=== PATIENT | female | born 1950 | race Caucasian/White ===

== ENCOUNTER → 2019-07-20 | Outpatient (CLI) | payer MEDICARE ==
[2019-07-20 13:33] LABS: INR 1.8 (<1.2); Prothrombin Time 17.9 sec (9.0-12.0)
== END | disposition home or self-care (01) ==
LOC: LABWHC1 12:25
DX: I48.91 Unspecified atrial fibrillation (principal)
CPT/HCPCS: 36415; 85610

== ENCOUNTER → 2019-08-08 | Outpatient (CLI) | payer MEDICARE ==
[2019-08-08 16:08] LABS: INR 1.1 (<1.2); Prothrombin Time 11.2 sec (9.0-12.0)
== END | disposition home or self-care (01) ==
LOC: LABWHC1 15:32
PROVIDERS: ATTEND Internal Medicine
DX: I48.91 Unspecified atrial fibrillation (principal)
CPT/HCPCS: 36415; 85610

== ENCOUNTER → 2020-04-20 | Outpatient (CLI) | payer MEDICARE ==
[2020-04-20 12:39] LABS: INR 1.2 (<1.2); Prothrombin Time 12.1 sec (9.0-12.0)
== END | disposition home or self-care (01) ==
LOC: LABWHC1 10:35
PROVIDERS: ATTEND Internal Medicine
DX: I48.91 Unspecified atrial fibrillation (principal)
CPT/HCPCS: 36415; 85610

== ENCOUNTER 2021-05-22 10:53 | Inpatient (IN) | payer MEDICARE ==
[2021-05-16 16:39] VITALS: BMI 31.4
--- NOTE | 2021-05-22 08:04 | P.GSHP ---
History of Present Illness H&P Date: 05/22/21 Chief Complaint: Panniculus This is a 70-year-old female who presents today for panniculus. Patient has had chronic issues with skin irritation rashes at her panniculus. Patient understands a cosmetic procedure however procedure to remove redundant skin. She is aware the risk of possible need of cosmetic surgery afterwards. Past Medical History Past Medical History: Cancer, CVA/TIA, Diabetes Mellitus, GERD/Reflux, Hyperlipidemia, Hypertension, Sleep Apnea/CPAP/BIPAP Additional Past Medical History / Comment(s): states 7 strokes, states left foot drop, and wears an AFO, hx of cervical CA, and colon CA 2002, had chemo and radiation, restless leg, neuropathy tr legs, rash under abdominal flap, states has had weight loss, at one time weighed 545lbs History of Any Multi-Drug Resistant Organisms: None Reported Past Surgical History: Bowel Resection, Heart Catheterization With Stent, Hernia Repair, Hysterectomy, Joint Replacement, Pacemaker Additional Past Surgical History / Comment(s): hx of colostomy, and then reversal, tr cataract sx, left hip replaced, states had 5 hernia repairs with mesh Past Anesthesia/Blood Transfusion Reactions: No Reported Reaction Date of Last Stent Placement:: 2013 Type of Cardiac Device: Permanent Pacemaker Device Placement Date:: 12/23/20 Smoking Status: Current every day smoker - Past Family History Brother(s) Family Medical History: Cancer Medications and Allergies Home Medications Medication Instructions Recorded Confirmed Type Atorvastatin [Lipitor] 40 mg PO HS 05/16/21 05/16/21 History Cholecalciferol [Vitamin D3 (25 25 mcg PO DAILY 05/16/21 05/16/21 History Mcg = 1000 Iu)] EPINEPHrine (Auto Inject) [Epipen] 0.3 mg IM ONCE PRN 05/16/21 05/16/21 History Fluticasone Nasal [place] [Flonase 2 spr EA NOSTRIL DAILY 05/16/21 05/16/21 History Nasal Russell] Gabapentin [Neurontin] 100 mg PO BID 05/16/21 05/16/21 History Insulin Glargine [Lantus] 0 unit SQ TID 05/16/21 05/16/21 History Metoprolol Tartrate 25 mg PO BID 05/16/21 05/16/21 History Nystatin 100,000 Unit/gm Oint 1 applic TOPICAL DIRECTED 05/16/21 05/16/21 History [Mycostatin Oint] Omeprazole 20 mg PO DAILY 05/16/21 05/16/21 History Pramipexole [Mirapex] 0.125 mg PO DAILY 05/16/21 05/16/21 History Sertraline [Zoloft] 50 mg PO QAM 05/16/21 05/16/21 History Warfarin [Coumadin] 5 mg PO THFRSA 05/16/21 05/16/21 History Warfarin [Coumadin] 10 mg PO SUMOTUWE 05/16/21 05/16/21 History metFORMIN HCL 1,000 mg PO BID 05/16/21 05/16/21 History Allergies Allergy/AdvReac Type Severity Reaction Status Date / Time bee venom protein (honey bee) Allergy Anaphylaxis Verified 05/16/21 16:28 cephalexin [From Keflex] Allergy Rash/Hives Verified 05/16/21 16:28 latex Allergy Rash/Hives Verified 05/16/21 16:28 Penicillins Allergy Swelling Verified 05/16/21 16:28 Sulfa (Sulfonamide Allergy Unknown Verified 05/16/21 16:28 Antibiotics) Surgical - Exam - General well developed, well nourished, no distress - Eyes PERRL - ENT normal pinna - Neck no masses - Respiratory normal expansion - Cardiovascular Rhythm: regular - Abdomen Well-formed panniculus Abdomen: soft, non tender Assessment and Plan Assessment: Panniculus. We'll perform the panniculectomy
[~2021-05-22 10:53] MED LIST: ACETAMINOPHEN TAB 500 MG TAB PO PRN; CLINDAMYCIN 900 MG in DEXTROSE 5% IN WATER 50 ML IVPB PRN; DEXAMETHASONE SOD PHOSPHATE 4 MG/ML 1 ML VIAL IV ONE; HEPARIN SODIUM,PORCINE/PF 5,000 UNIT/0.5 ML SYRINGE SQ PRN; LACTATED RINGERS 1,000 ML IV SCH; LIDOCAINE 1% (10MG/ML) FOR IV START INTRADERMA PRN; ONDANSETRON 4 MG/2 ML VIAL IVP ONE
[2021-05-22 12:36] LABS: Glucose,Whole Blood 131 mg/dL (75-99)
[2021-05-22 12:44] LABS: Basophils # (A) 0.1 k/uL (0-0.2); Basophils % (A) 1 %; Eosinophils # (A) 0.1 k/uL (0-0.7); Eosinophils % (A) 2 %; HCT 44.1 % (34.0-46.0); HGB 15.3 gm/dL (11.4-16.0); Lymphocytes # (A) 1.8 k/uL (1.0-4.8); Lymphocytes % (A) 25 %; MCH 34.1 pg (25.0-35.0); MCHC 34.7 g/dL (31.0-37.0); MCV 98.4 fL (80.0-100.0); Mean Platelet Volume 7.9; Monocytes # (A) 0.4 k/uL (0-1.0); Monocytes % (A) 5 %; Neutrophils # (A) 4.8 k/uL (1.3-7.7); Neutrophils % (A) 66 %; Platelet Count 249 k/uL (150-450); RBC 4.48 m/uL (3.80-5.40); RDW 13.1 % (11.5-15.5); WBC 7.3 k/uL (3.8-10.6)
[2021-05-22] MEDS ORDERED: MIDAZOLAM 2 MG/2 ML VIAL IVP ONE (13:05)
--- NOTE | 2021-05-22 13:53 | P.ANPRN ---
Procedure Note - Anesthesia - Nerve Block Performed Bilateral Erector Spinae Single Time Out Performed: Yes Date of Procedure: 05/22/21 Procedure Start Time: 13:04 Procedure Stop Time: 13:10 Location of Patient: PreOp (1310) Indication: Acute Post-Operative Pain, Requested by Surgeon Sedation Type: Sedate with meaningful contact maintained Preparation: Sterile Prep Position: Prone Needle Types: Pajunk Needle Gauge: 21 Ultrasound used to visualize needle placement: Yes Ultrasound used to observe medication spread: Yes Blood Aspirated: No Pain Paresthesia on Injection Noted: No Resistance on Injection: Normal Image Stored and Saved: Yes Events: Uneventful and Well Tolerated (ropi .5% 15cc plus xylo 1% with epi 15cc bilaterally at L1)
[2021-05-22] MEDS ORDERED: NEOSTIGMINE 1 MG/ML 10 ML VIAL ONE (14:10)
[2021-05-22] MEDS ORDERED: ROPIVACAINE 5 MG/ML 30 ML VIAL ONE (14:10)
[2021-05-22] MEDS ORDERED: GLYCOPYRROLATE 0.2 MG/ML 2 ML VIAL ONE (14:10)
[2021-05-22] MEDS ORDERED: LIDOCAINE 1% INJ 10MG/ML (20 ML MDV) ONE (14:10)
[2021-05-22] MEDS ORDERED: LIDOCAINE 1%-EPI 1:100,000 20 ML VIAL ONE (14:10)
[2021-05-22] MEDS ORDERED: HYDROmorphone (PF) 1 MG/ML ONE (14:10)
[2021-05-22] MEDS ORDERED: ROCURONIUM 10 MG/ML (5 ML VIAL) IV ONE (14:10)
[2021-05-22] MEDS ORDERED: SUCCINYLCHOLINE CHLORIDE 100 MG/5 ML SYR IV ONE (14:10)
[2021-05-22] MEDS ORDERED: PROPOFOL 10 MG/ML 20 ML VIAL IV ONE (14:10)
[2021-05-22] MEDS ORDERED: fentaNYL (PF) 50 MCG/ML 2 ML AMP ONE (14:10)
[2021-05-22] MEDS ORDERED: LACTATED RINGERS 1,000 ML IV ONE ×4 (14:53→16:15)
[2021-05-22] MEDS ORDERED: HYDROmorphone 0.5 MG/0.5 ML SYRINGE IVP PRN (16:02)
[2021-05-22] MEDS ORDERED: ONDANSETRON 4 MG/2 ML VIAL IVP PRN (16:02)
[2021-05-22] MEDS ORDERED: ACETAMINOPHEN TAB 325 MG TAB PO PRN (16:02)
[2021-05-22] MEDS ORDERED: NALOXONE 0.4 MG/ML 1 ML VIAL IV PRN (16:02)
[2021-05-22] MEDS ORDERED: traMADol 50 MG TAB PO PRN (16:02)
--- NOTE | 2021-05-22 16:02 | P.OP ---
Date of Procedure: 05/22/21 Preoperative Diagnosis: Panniculus Postoperative Diagnosis: Panniculus Incisional hernia Procedure(s) Performed: Panniculectomy Repair of incisional hernia Anesthesia: MILTON Surgeon: Alvin Sierra Estimated Blood Loss (ml): 25 Pathology: none sent Condition: stable Disposition: PACU Description of Procedure: PROCEDURE: The patient was placed on the operating table in supine position and received general anesthetic. The abdomen was prepped and draped in the usual sterile fashion. The lower skin incision was then made after the skin was marked with a marker. The incision ran from the pubic area to the level of the anterosuperior iliac spine. Using blunt and sharp dissection and electrocautery the subcutaneous tissues were then dissected down to the level of the fascia external oblique. Following this the dissection was then made from the inferior pannicular incision cephalad. The xiphoid and costal margins were the limits of the dissection. Several small perforating vessels were ligated and cautery was used to maintain hemostasis. Once the dissection was performed the panniculus was then divided in the midline from the level of the umbilicus towards the pubic area. Downward and lateral traction was then placed on the abdominal wall and the skin was suitably marked for transection of the umbilicus. The skin was then incised and the Bovie was used for dissection of the pannicular flap. Next, 2 10-[place] SANTA drains were placed in the wound and brought out through separate stab incisions at the level of the pubic area. The drains were secured to the skin using 3-0 nylon. After the SANTA drains were secured, Marshall's fascia was closed with interrupted 0 Vicryl sutures and then the skin was closed with running 3-0 Monocryl sutures. Prior to closure of the abdominal wall care was taken to ensure that both the abdominal wall and the abdominal wall flap were hemostatic. At this point the drains were placed to suction. The abdomen was cleaned and then sterile tape was placed over top of the incisions. Abdominal binder was then placed. The patient tolerated the procedure well. The patient was sent to recovery room in stable condition.
[2021-05-22] MEDS ORDERED: HYDROmorphone 0.5 MG/0.5 ML SYRINGE IVP ONE ×3 (16:13→16:36)
[2021-05-22 16:31] LABS: Glucose,Whole Blood 147 mg/dL (75-99)
[2021-05-22 20:34] LABS: Glucose,Whole Blood 152 mg/dL (75-99)
[2021-05-22] MEDS: METOPROLOL TARTRATE 25 MG TAB PO SCH (22:34)
[2021-05-22] MEDS: ATORVASTATIN 40 MG TAB PO SCH (22:34)
[2021-05-22] MEDS: DOCUSATE 100 MG CAP PO SCH (22:35)
[2021-05-22] MEDS: INSULIN ASPART (NovoLOG) 100 UNIT/ML VIAL SQ SCH (22:36)
[2021-05-22] MEDS: HYDROcodone/APAP 5-325MG 1 EACH TAB PO PRN (23:29)
[2021-05-23 07:14] LABS: Glucose,Whole Blood 123 mg/dL (75-99)
[2021-05-23] MEDS: INSULIN ASPART (NovoLOG) 100 UNIT/ML VIAL SQ SCH ×4 (07:36→20:44)
[2021-05-23] MEDS: DOCUSATE 100 MG CAP PO SCH ×2 (07:38→20:44)
[2021-05-23] MEDS: CHOLECALCIFEROL 25 MCG (1000 IU) TABLET PO SCH (07:38)
[2021-05-23] MEDS: METOPROLOL TARTRATE 25 MG TAB PO SCH ×2 (07:38→20:44)
[2021-05-23] MEDS: ENOXAPARIN 40 MG/0.4 ML SYRINGE SQ SCH (07:38)
[2021-05-23] MEDS: PANTOPRAZOLE 40 MG TABLET PO SCH (07:38)
[2021-05-23] MEDS: SERTRALINE 50 MG TAB PO SCH (07:38)
[2021-05-23] MEDS: PRAMIPEXOLE 0.125 MG TAB PO SCH (07:39)
[2021-05-23] MEDS: HYDROcodone/APAP 5-325MG 1 EACH TAB PO PRN ×2 (09:34→17:07)
[2021-05-23 09:36] LABS: Basophils % (A) 0 %; Eosinophils # (A) 0.2 k/uL (0-0.7); Eosinophils % (A) 2 %; HCT 39.5 % (34.0-46.0); HGB 13.2 gm/dL (11.4-16.0); Lymphocytes # (A) 1.7 k/uL (1.0-4.8); Lymphocytes % (A) 15 %; MCH 33.6 pg (25.0-35.0); MCHC 33.4 g/dL (31.0-37.0); MCV 100.8 fL (80.0-100.0); Monocytes # (A) 0.5 k/uL (0-1.0); Monocytes % (A) 4 %; Neutrophils # (A) 8.5 k/uL (1.3-7.7); Neutrophils % (A) 78 %; Platelet Count 220 k/uL (150-450); RBC 3.92 m/uL (3.80-5.40); RDW 13.2 % (11.5-15.5)
[2021-05-23] MEDS: FLUTICASONE 50MCG/SPRAY NASAL 16GM EA NOSTRIL SCH (09:52)
[2021-05-23 09:58] LABS: African American GFR (CKD) >90 (>60 ml/min/1.73 sqM); Anion Gap 5 mmol/L; Blood Urea Nitrogen 22 mg/dL (7-17); Calcium 9.2 mg/dL (8.4-10.2); Carbon Dioxide 29 mmol/L (22-30); Chloride 102 mmol/L (98-107); Glucose 232 mg/dL (74-99); Non-African American GFR(CKD) 89 (>60 ml/min/1.73 sqM); Potassium 4.6 mmol/L (3.5-5.1); Sodium 136 mmol/L (137-145)
[2021-05-23] MEDS: IPRATROPIUM-ALBUTEROL 3 ML NEB INHALATION SCH ×3 (10:58→18:51)
[2021-05-23 11:18] LABS: Glucose,Whole Blood 174 mg/dL (75-99)
--- NOTE | 2021-05-23 14:18 | P.PN ---
Subjective Progress Note Date: 05/23/21 CHIEF COMPLAINT: Panniculus HISTORY OF PRESENT ILLNESS: Patient is status post panniculectomy and repair of several incisional hernias. Patient reports that her pain is controlled. This morning she was on 4 L of nasal cannula oxygen with some shortness of breath with movement from the bed to the chair. She denies any nausea or vomiting. She is tolerating her clear liquid diet. Denies any flatus or BM. She's afebrile. WBC is 11 hemoglobin was 13.2 platelets 220 sodium 136 creatinine 0.70 SANTA drains with 110 mL sanguinous output from each SANTA drain PHYSICAL EXAM: VITAL SIGNS: Reviewed. GENERAL: Well-developed in no acute distress. HEENT: No sclera icterus. Extraocular movements grossly intact. Moist buccal mucosa. Head is atraumatic, normocephalic. ABDOMEN: Soft. Nondistended. Incisional dressing clean dry and intact. SANTA drain with sanguinous output NEUROLOGIC: Alert and oriented. Cranial nerves II through XII grossly intact. ASSESSMENT: 1. Panniculus and incisional hernias. Patient status post panniculectomy and repair of several incisional hernias. Postop day #1 PLAN: -Advance diet to regular -Encourage patient to ambulate -Encourage patient to use incentive spirometer -Continue pain medication as needed -DuoNeb updrafts added for shortness of breath -Discontinue IV fluids -Discontinue Fermin catheter -Anticipate discharge tomorrow Physician Gear Generator Set Up Operator note has been reviewed by physician. Signing provider agrees with the documented findings, assessment, and plan of care. Objective - Vital Signs Vital signs: Vital Signs Temp 98.3 F 05/23/21 08:00 Pulse 50 L 05/23/21 11:10 Resp 18 05/23/21 11:10 BP 116/64 05/23/21 08:00 Pulse Ox 95 05/23/21 11:00 Intake & Output 05/22/21 05/23/21 05/23/21 18:59 06:59 18:59 Intake Total 2381 Output Total 770 Balance 1611 Weight 90.3 kg Intake: IV 2381 Output: Urine 750 Estimated Blood Loss 20 Other: Voiding Method Indwelling Catheter Indwelling Catheter Indwelling Catheter - Labs CBC & Chem 7: 05/23/21 09:20 05/23/21 09:20 Labs: Abnormal Lab Results - Last 24 Hours (Table) 05/22/21 05/22/21 05/23/21 Range/Units 16:29 20:32 07:01 WBC (3.8-10.6) k/uL MCV (80.0-100.0) fL Neutrophils # (1.3-7.7) k/uL Sodium (137-145) mmol/L BUN (7-17) mg/dL Glucose (74-99) mg/dL POC Glucose (mg/dL) 147 H 152 H 123 H (75-99) mg/dL 05/23/21 05/23/21 05/23/21 Range/Units 09:20 09:20 11:17 WBC 11.0 H (3.8-10.6) k/uL MCV 100.8 H (80.0-100.0) fL Neutrophils # 8.5 H (1.3-7.7) k/uL Sodium 136 L (137-145) mmol/L BUN 22 H (7-17) mg/dL Glucose 232 H (74-99) mg/dL POC Glucose (mg/dL) 174 H (75-99) mg/dL
[2021-05-23 16:55] LABS: Glucose,Whole Blood 139 mg/dL (75-99)
[2021-05-23 20:14] LABS: Glucose,Whole Blood 167 mg/dL (75-99)
[2021-05-23] MEDS: ATORVASTATIN 40 MG TAB PO SCH (20:43)
[2021-05-24] MEDS: HYDROcodone/APAP 5-325MG 1 EACH TAB PO PRN ×3 (01:08→13:24)
[2021-05-24 07:04] LABS: Glucose,Whole Blood 113 mg/dL (75-99)
[2021-05-24] MEDS: DOCUSATE 100 MG CAP PO SCH ×2 (07:39→21:30)
[2021-05-24] MEDS: ENOXAPARIN 40 MG/0.4 ML SYRINGE SQ SCH (07:39)
[2021-05-24] MEDS: CHOLECALCIFEROL 25 MCG (1000 IU) TABLET PO SCH (07:39)
[2021-05-24] MEDS: FLUTICASONE 50MCG/SPRAY NASAL 16GM EA NOSTRIL SCH (07:39)
[2021-05-24] MEDS: METOPROLOL TARTRATE 25 MG TAB PO SCH ×2 (07:40→21:29)
[2021-05-24] MEDS: SERTRALINE 50 MG TAB PO SCH (07:40)
[2021-05-24] MEDS: PANTOPRAZOLE 40 MG TABLET PO SCH (07:40)
[2021-05-24] MEDS: PRAMIPEXOLE 0.125 MG TAB PO SCH (07:41)
[2021-05-24] MEDS: INSULIN ASPART (NovoLOG) 100 UNIT/ML VIAL SQ SCH ×4 (07:41→22:11)
[2021-05-24] MEDS: IPRATROPIUM-ALBUTEROL 3 ML NEB INHALATION SCH ×4 (09:04→20:29)
[2021-05-24 09:16] LABS: Basophils # (A) 0.04 X 10*3/uL (0.00-0.10); Basophils % (A) 0.5 %; Eosinophils # (A) 0.11 X 10*3/uL (0.04-0.35); Eosinophils % (A) 1.3 %; HCT 36.8 % (37.2-46.3); HGB 11.8 g/dL (12.0-15.0); Lymphocytes # (A) 2.27 X 10*3/uL (0.90-5.00); Lymphocytes % (A) 26.7 %; MCH 32.7 pg (27.0-32.0); MCHC 32.1 g/dL (32.0-37.0); MCV 101.9 fL (80.0-97.0); Mean Platelet Volume 10.9 fL (9.5-12.2); Monocytes # (A) 0.74 X 10*3/uL (0.20-1.00); Monocytes % (A) 8.7 %; Neutrophils # (A) 5.33 X 10*3/uL (1.80-7.70); Neutrophils % (A) 62.6 %; Platelet Count 198 X 10*3/uL (140-440); RBC 3.61 X 10*6/uL (4.10-5.20); RDW 13.3 % (11.5-14.5); WBC 8.51 X 10*3/uL (4.50-10.00)
--- NOTE | 2021-05-24 10:03 | XR ---
EXAMINATION TYPE: XR chest 1V DATE OF EXAM: 05/24/2021 COMPARISON: NONE HISTORY: Hypoxia TECHNIQUE: Single frontal view of the chest is obtained. FINDINGS: The patient is rotated. There is patchy basilar density noted, some blunting the costophren ic angles. The aorta is dense. There are overlying artifacts. The cardiac silhouette size is within n ormal limits. There is a loop recorder over the left chest. The osseous structures are intact. IMPRESSION: Basilar atelectasis and possible associated effusions. Pneumonia not excluded. Follow-up suggested.
[2021-05-24] MEDS ORDERED: FUROSEMIDE 10 MG/ML 4 ML VIAL IV STA (11:26)
[2021-05-24 11:34] LABS: Glucose,Whole Blood 165 mg/dL (75-99)
--- NOTE | 2021-05-24 12:49 | P.CONS ---
History of Present Illness - Reason for Consult Consult date: 05/24/21 Requesting physician: Alvin Sierra - Chief Complaint Medical management, status post abdominoplasty - History of Present Illness This 70-year-old pleasant female, with known history of cold colon cancer 2002, requiring the chemoradiation, also with history of significant weight loss, at one time she weighed 545 pounds, also has diabetes mellitus, hyperlipidemia, hyp ertension, obstructive sleep apnea, she also has atrial fibrillation, paroxysmal requiring Coumadin, and has 7 prior CVAs in the past. She also has aortic stenosis, followed by product line manager in [facility] and has a loop recorder. She now comes in for an elective abdominoplasty secondary to pannus and panniculitis, for which Dr. Sierra has performed the procedure 05/23/2021. She was seen postoperatively in a consult made to our service on 05/24/2021 for medical management. Interestingly, she had called bleed in January of this year, When seen, patient was a little bit hypoxemic, she has an abdominal binder, pulse ox in the 90% with 4 L L, patient does not have any chest pain, but she has a hard time breathing, related to the abdominal binder, patient denies any edema, no CHF the past, does not have any history of PE DVT, she is however Coumadin for cardiac reasons, consult also were made with Dr. Kyle hewitt, she is performing her incentive spirometry, with an capacity of 1500 L only. Hemoglobin is 11.8, blood sugars between 113-167, platelet count is normal, chest x-ray shows bilateral atelectasis, with possible pleural effusion, blunting of costophrenic angles. There is no fever currently, T-max 98.4, heart rate in the 70s, blood pressure 147/82, pulse oximetry currently are not 2 L cannula, 92 percent Review of Systems Constitutional: Reports as per HPI, Denies anorexia, Denies chills, Denies chronic headaches, Denies chronic pain, Denies daytime sleepiness, Denies fatigue, Denies fever, Denies lethargy, Denies malaise, Denies night sweats, Denies poor appetite, Denies sweats, Denies weakness, Denies weight gain, Denies weight loss Ears, nose, mouth and throat: Reports as per HPI, Denies ant. neck pain, Denies bleeding gums, Denies dental pain, Denies dysphagia, Denies epistaxis, Denies headache, Denies hoarseness, Denies mouth pain, Denies nasal congestion, Denies nasal discharge, Denies neck fullness/pressure, Denies neck lump, Denies nose pain, Denies odynophagia, Denies post-nasal drip, Denies sinus pain, Denies sinus pressure, Denies swelling in mouth, Denies swelling in throat, Denies sore throat, Denies vertigo, Denies voice changes Cardiovascular: Reports as per HPI, Reports shortness of breath Respiratory: Reports as per HPI, Denies congestion, Denies cough, Denies cough with sputum, Denies dyspnea, Denies excessive sputum, Denies hemoptysis, Denies home oxygen, Denies pain, Denies pain on inspiration, Denies pleurisy, Denies respiratory infections, Denies sleep apnea, Denies snoring, Denies wheezing Gastrointestinal: Reports as per HPI Genitourinary: Reports as per HPI, Denies abnormal vaginal bleeding, Denies decreased libido, Denies difficulty conceiving, Denies difficulty voiding, Denies dysmenorrhea, Denies dyspareunia, Denies dysuria, Denies flank pain, Denies genital sores, Denies hematuria, Denies hot flashes, Denies incomplete emptying, Denies kidney stones, Denies menorrhagia, Denies mixed incontinence, Denies nocturia, Denies pelvic pain, Denies post void dribbling, Denies , Denies prolapse symptoms, Denies stress incontinence, Denies urge incontinence, Denies urgency, Denies urinary frequency, Denies vaginal discharge, Denies vaginal dryness, Denies vaginal itching, Denies vaginal odor Menstruation: Reports as per HPI, Reports postmenopausal Musculoskeletal: Reports as per HPI, Denies arm numbness/tingling, Denies frequent falls, Denies gait dysfunction, Denies limitation of motion, Denies loss of height Integumentary: Reports as per HPI Neurological: Reports as per HPI Psychiatric: Reports as per HPI, Denies hypersomnia, Denies insomnia, Denies irritability, Denies sleep disturbances, Denies suicidal ideation Endocrine: Reports as per HPI, Reports fatigue, Denies heat intolerance, Denies low blood sugars, Denies palpitations Hematologic/Lymphatic: Reports as per HPI Allergic/Immunologic: Reports as per HPI, Denies allergic rhinitis, Denies anaphylaxis, Denies angioedema, Denies gluten intolerance, Denies persistent infections, Denies seasonal allergies, Denies urticaria, Denies wheezing Past Medical History Past Medical History: Cancer, CVA/TIA, Diabetes Mellitus, GERD/Reflux, Hyperlipidemia, Hypertension, Sleep Apnea/CPAP/BIPAP Additional Past Medical History / Comment(s): states 7 strokes, states left foot drop, and wears an AFO, hx of cervical CA, and colon CA 2002, had chemo and radiation, restless leg, neuropathy tr legs, rash under abdominal flap, states has had weight loss, at one time weighed 545lbs History of Any Multi-Drug Resistant Organisms: None Reported Past Surgical History: Bowel Resection, Heart Catheterization With Stent, Hernia Repair, Hysterectomy, Joint Replacement, Pacemaker Additional Past Surgical History / Comment(s): hx of colostomy, and then reversal, tr cataract sx, left hip replaced, states had 5 hernia repairs with mesh Past Anesthesia/Blood Transfusion Reactions: No Reported Reaction Date of Last Stent Placement:: 2013 Type of Cardiac Device: Permanent Pacemaker Device Placement Date:: 12/23/20 Past Psychological History: Depression Smoking Status: Former smoker Past Alcohol Use History: None Reported Additional Past Alcohol Use History / Comment(s): smokes 1ppd, has smoked up to 3ppd in past Past Drug Use History: Marijuana Additional Drug Use History / Comment(s): occasional use, instructed to hold 24 hrs - Past Family History Brother(s) Family Medical History: Cancer Sister(s) History Unknown: Yes (Crohn's) Daughter(s) History Unknown: Yes (Cholesteatoma) Son(s) Family Medical History: No Reported History Father Family Medical History: Cancer (Skin cancer), Coronary Artery Disease (CAD), Diabetes Mellitus Mother Family Medical History: Coronary Artery Disease (CAD), CVA/TIA, Diabetes Mellitus Medications and Allergies Home Medications Medication Instructions Recorded Confirmed Type Atorvastatin [Lipitor] 40 mg PO HS 05/16/21 05/16/21 History Cholecalciferol [Vitamin D3 (25 25 mcg PO DAILY 05/16/21 05/16/21 History Mcg = 1000 Iu)] EPINEPHrine (Auto Inject) [Epipen] 0.3 mg IM ONCE PRN 05/16/21 05/16/21 History Fluticasone Nasal [place] [Flonase 2 spr EA NOSTRIL DAILY 05/16/21 05/16/21 History Nasal [place]] Gabapentin [Neurontin] 100 mg PO BID 05/16/21 05/16/21 History Insulin Glargine [Lantus] 35 unit SQ TID 05/16/21 05/22/21 History Metoprolol Tartrate 25 mg PO BID 05/16/21 05/16/21 History Nystatin 100,000 Unit/gm Oint 1 applic TOPICAL DIRECTED 05/16/21 05/16/21 History [Mycostatin Oint] Omeprazole 20 mg PO DAILY 05/16/21 05/16/21 History Pramipexole [Mirapex] 0.125 mg PO DAILY 05/16/21 05/16/21 History Sertraline [Zoloft] 50 mg PO QAM 05/16/21 05/16/21 History Warfarin [Coumadin] 5 mg PO THFRSA 05/16/21 05/16/21 History Warfarin [Coumadin] 10 mg PO SUMOTUWE 05/16/21 05/16/21 History metFORMIN HCL 1,000 mg PO BID 05/16/21 05/16/21 History Allergies Allergy/AdvReac Type Severity Reaction Status Date / Time bee venom protein (honey bee) Allergy Anaphylaxis Verified 05/22/21 12:02 cephalexin [From Keflex] Allergy Rash/Hives Verified 05/22/21 12:02 latex Allergy Rash/Hives Verified 05/22/21 12:02 Penicillins Allergy Swelling Verified 05/22/21 12:02 Sulfa (Sulfonamide Allergy Unknown Verified 05/22/21 12:02 Antibiotics) Physical Exam Vitals: Vital Signs Temp Pulse Pulse Pulse Resp BP Pulse Ox 05/24/21 09:04 63 05/24/21 07:30 98.4 F 71 19 147/82 90 L 05/24/21 01:22 98.3 F 65 18 145/69 93 L 05/23/21 20:00 98.4 F 62 16 129/49 93 L 05/23/21 19:07 60 05/23/21 18:53 64 05/23/21 15:18 61 05/23/21 15:10 68 05/23/21 14:00 98.6 F 68 18 130/61 92 L Intake and Output 07/08/21 07/09/21 07/09/21 22:59 06:59 14:59 Output Total 660 140 Balance -660 -140 Output: Drainage 60 140 Lower Anterior Abdomen 60 140 Urine 600 Other: Voiding Method Toilet # Voids 1 - Constitutional General appearance: cooperative, no acute distress, obese - EENT Eyes: anicteric sclerae, EOMI, PERRLA, dentition normal ENT: NA/AT - Neck Neck: normal ROM - Respiratory Respiratory: bilateral: CTA, negative: diminished, dullness, rales, rhonchi - Cardiovascular Rhythm: regular Heart sounds: normal: S1, S2 Abnormal Heart Sounds: no systolic murmur, no diastolic murmur, no rub, no S3 Gallop, no S4 Gallop, no click, no other - Gastrointestinal General gastrointestinal: normal bowel sounds, soft - Integumentary Integumentary: decreased turgor, normal turgor - Musculoskeletal Musculoskeletal: gait normal, strength equal bilaterally - Psychiatric Psychiatric: A&O x's 3, appropriate affect, intact judgment & insight Results CBC & Chem 7: 05/24/21 06:25 05/23/21 09:20 Labs: Abnormal Lab Results - Last 24 Hours (Table) 05/23/21 05/23/21 05/24/21 Range/Units 16:52 20:11 06:25 RBC 3.61 L (4.10-5.20) X 10*6/uL Hgb 11.8 L (12.0-15.0) g/dL Hct 36.8 L (37.2-46.3) % MCV 101.9 H (80.0-97.0) fL MCH 32.7 H (27.0-32.0) pg POC Glucose (mg/dL) 139 H 167 H (75-99) mg/dL 05/24/21 05/24/21 05/24/21 Range/Units 07:03 11:29 11:29 RBC (4.10-5.20) X 10*6/uL Hgb (12.0-15.0) g/dL Hct (37.2-46.3) % MCV (80.0-97.0) fL MCH (27.0-32.0) pg POC Glucose (mg/dL) 113 H 165 H 165 H (75-99) mg/dL 05/24/21 05/24/21 05/24/21 Range/Units 11:29 11:29 11:29 RBC (4.10-5.20) X 10*6/uL Hgb (12.0-15.0) g/dL Hct (37.2-46.3) % MCV (80.0-97.0) fL MCH (27.0-32.0) pg POC Glucose (mg/dL) 165 H 165 H 165 H (75-99) mg/dL 05/24/21 05/24/21 05/24/21 Range/Units 11:29 11:29 11:29 RBC (4.10-5.20) X 10*6/uL Hgb (12.0-15.0) g/dL Hct (37.2-46.3) % MCV (80.0-97.0) fL MCH (27.0-32.0) pg POC Glucose (mg/dL) 165 H 165 H 165 H (75-99) mg/dL Laboratory Results WBC 8.51 X 10*3/uL (4.50-10.00) 05/24/21 06:25 RBC 3.61 X 10*6/uL (4.10-5.20) L 05/24/21 06:25 Hgb 11.8 g/dL (12.0-15.0) L 05/24/21 06:25 Hct 36.8 % (37.2-46.3) L 05/24/21 06:25 MCV 101.9 fL (80.0-97.0) H 05/24/21 06:25 MCH 32.7 pg (27.0-32.0) H 05/24/21 06:25 MCHC 32.1 g/dL (32.0-37.0) 05/24/21 06:25 RDW 13.3 % (11.5-14.5) 05/24/21 06:25 Plt Count 198 X 10*3/uL (140-440) 05/24/21 06:25 MPV 10.9 fL (9.5-12.2) 05/24/21 06:25 Immature Gran % (Auto) 0.2 % 05/24/21 06:25 Absolute Nucleated RBC 0 X 10*3/uL (0.00-0.00) 05/24/21 06:25 Neutrophils % 62.6 % 05/24/21 06:25 Lymphocytes % 26.7 % 05/24/21 06:25 Monocytes % 8.7 % 05/24/21 06:25 Eosinophils % 1.3 % 05/24/21 06:25 Basophils % 0.5 % 05/24/21 06:25 Immature Gran # 0.02 X 10*3/uL (0.00-0.04) 05/24/21 06:25 Neutrophils # 5.33 X 10*3/uL (1.80-7.70) 05/24/21 06:25 Lymphocytes # 2.27 X 10*3/uL (0.90-5.00) 05/24/21 06:25 Monocytes # 0.74 X 10*3/uL (0.20-1.00) 05/24/21 06:25 Eosinophils # 0.11 X 10*3/uL (0.04-0.35) 05/24/21 06:25 Basophils # 0.04 X 10*3/uL (0.00-0.10) 05/24/21 06:25 NRBC/100 WBC Diff 0 /100 WBCS (0.0-0.0) 05/24/21 06:25 Sodium 136 mmol/L (137-145) L 05/23/21 09:20 Potassium 4.6 mmol/L (3.5-5.1) 05/23/21 09:20 Chloride 102 mmol/L (98-107) 05/23/21 09:20 Carbon Dioxide 29 mmol/L (22-30) 05/23/21 09:20 Anion Gap 5 mmol/L 05/23/21 09:20 BUN 22 mg/dL (7-17) H 05/23/21 09:20 Creatinine 0.70 mg/dL (0.52-1.04) 05/23/21 09:20 Est GFR (CKD-EPI)AfAm >90 (>60 ml/min/1.73 sqM) 05/23/21 09:20 Est GFR (CKD-EPI)NonAf 89 (>60 ml/min/1.73 sqM) 05/23/21 09:20 Glucose 232 mg/dL (74-99) H 05/23/21 09:20 POC Glucose (mg/dL) 165 mg/dL (75-99) H 05/24/21 11:29 POC Glucose (mg/dL) 165 mg/dL (75-99) H 05/24/21 11:29 POC Glucose (mg/dL) 165 mg/dL (75-99) H 05/24/21 11:29 POC Glucose (mg/dL) 165 mg/dL (75-99) H 05/24/21 11:29 POC Glucose (mg/dL) 165 mg/dL (75-99) H 05/24/21 11:29 POC Glucose (mg/dL) 165 mg/dL (75-99) H 05/24/21 11:29 POC Glucose (mg/dL) 165 mg/dL (75-99) H 05/24/21 11:29 POC Glucose (mg/dL) 165 mg/dL (75-99) H 05/24/21 11:29 POC Glu Ice Cream Dispenser ID [place], [facility] 05/24/21 11:29 POC Glu Ice Cream Dispenser ID [place], [facility] 05/24/21 11:29 POC Glu Ice Cream Dispenser ID [place], [facility] 05/24/21 11:29 POC Glu Ice Cream Dispenser ID [place], [facility] 05/24/21 11:29 POC Glu Ice Cream Dispenser ID [place], [facility] 05/24/21 11:29 POC Glu Ice Cream Dispenser ID [place], [facility] 05/24/21 11:29 POC Glu Ice Cream Dispenser ID [place], [facility] 05/24/21 11:29 POC Glu Ice Cream Dispenser ID [place], [facility] 05/24/21 11:29 Calcium 9.2 mg/dL (8.4-10.2) 05/23/21 09:20 NT-Pro-B Natriuret Pep 730 pg/mL 05/24/21 11:07 Assessment and Plan Plan: 1. History of super obesity, now has underlying panniculitis, requiring elective panniculectomy, performed by Dr. Sierra 05/22/2006/04/2021, patient is doing incentive spirometry, with abdominal binder, patient is having difficulties in maximizing her incentive spirometry, she does have bilateral atelectasis, patient's encouraged to pursue further treatment for the atelectasis.. And PEEP proBNP 7:30, 2. Atelectasis, with acute hypoxemic respiratory failure, related to abdominal binder use, and atelectasis, monitor, continue on incentive spirometry, O2 supplementation, monitor chest x-ray, Dr. Wright to see the patient. Patient denies any history of PE or DVT in the past DuoNeb 3. Mild pleural effusion, Lasix given, 401 dose 2. History of long-term anticoagulation, secondary to atrial fibrillation, has 7 CVAs related to atrial fibrillation, no history of PE, 3. Diabetes mellitus type 2, on metformin and restart 4. CAD, with heart stents in the past, 5. History of colon cancer with history of colostomy with reversal 6. History of a loop recorder, pacemaker, most of the records were at [facility] 7 GI prophylaxis Lovenox 40 8. DVT prophylaxis, IV Protonix Long-term anticoagulation, we'll restart Coumadin once cleared by general surgery, to start within the next 24 hours
--- NOTE | 2021-05-24 13:00 | ECHOF ---
Referral Reason:shortness of breath MEASUREMENTS -------- HEIGHT: 170.2 cm WEIGHT: 90.3 kg BP: IVSd: 1.5 cm (0.6 - 1.1) LVIDd: 3.4 cm (3.9 - 5.3) LVPWd: 1.4 cm (0.6 - 1.1) IVSs: 2.1 cm LVIDs: 1.8 cm LVPWs: 2.5 cm Ao Diam: 2.9 cm (2.0 - 3.7) AV Cusp: 1.3 cm (1.5 - 2.6) LA Diam: 3.1 cm (2.7 - 3.8) MV EXCURSION: 11.540 mm (> 18.000) MV EF SLOPE: 45 mm/s (70 - 150) EPSS: 0.5 cm MV E Logan: 1.13 m/s MV DecT: 386 ms MV A Logan: 1.14 m/s MV E/A Ratio: 0.99 AV maxP.84 mmHg AV meanP.97 mmHg RAP: 5.00 mmHg RVSP: 37.13 mmHg FINDINGS -------- This was a technically difficult study with suboptimal views. The left ventricular size is normal. There is moderate concentric left ventricular hypertrophy. O verall left ventricular systolic function is normal with, an EF between 55 - 60 %. The right ventricle is normal in size. The left atrial size is normal. The right atrial size is normal. Lumason used Unable to visualize the septum. Aortic valve is trileaflet and is severely thickened. There is severe aortic stenosis present. Pe ak/mean gradient across the Aortic Valve is 61.84mmHg / 40.97mmHg. The mitral valve is normal. The mitral valve leaflets are moderately thickened. Mild mitral annul ar calcification present. Mild mitral regurgitation is present. The peak and mean MV gradients a re 7.83mmHg 2.25mmHg as measured by doppler. [id number] mitral stenosis. The tricuspid valve appears structurally normal. Mild tricuspid regurgitation present. Right vent ricular systolic pressure is normal at < 35 mmHg. There is no pulmonic regurgitation present. The aortic root size is normal. IVC Not well visulized. There is no pericardial effusion. CONCLUSIONS -------- 1. The left ventricular size is normal. 2. There is moderate concentric left ventricular hypertrophy. 3. Overall left ventricular systolic function is normal with, an EF between 55 - 60 %. 4. Aortic valve is trileaflet and is severely thickened. 5. There is severe aortic stenosis present. 6. Peak/mean gradient across the Aortic Valve is 61.84mmHg / 40.97mmHg. 7. The mitral valve leaflets are moderately thickened. 8. Mild mitral annular calcification present. 9. Mild mitral regurgitation is present. 10. The peak and mean MV gradients are 7.83mmHg 2.25mmHg as measured by doppler. 11. Ofks-je-gqlqxbwk mitral stenosis. 12. Mild tricuspid regurgitation present. 13. There is no pericardial effusion. GROUND OPERATIONS SUPERVISOR: Yina Desir RDCS
--- NOTE | 2021-05-24 13:50 | P.PN ---
Subjective Progress Note Date: 05/24/21 CHIEF COMPLAINT: Panniculus HISTORY OF PRESENT ILLNESS: Patient is status post panniculectomy and repair of several incisional hernias. Patient reports that her pain is controlled. She denies any nausea or vomiting. She is having flatus. She is tolerating regular diet. Patient is complaining still of having shortness of breath. She has required 4 L of oxygen. She reports having difficulty taking in a deep breath. Abdominal binder has been adjusted. Patient's oxygen saturation on room air is still around 8889%. She has a known history of COPD and history of smoking. She quit smoking about 2 weeks ago. Patient's SANTA drain sanguinous. First drain with 100 mL output second drain with 40 mL output. Afebrile. WBC is 8.5 hemoglobin 11.8 Chest x-ray showing basilar atelectasis and possible associated effusions. Pneumonia not excluded. Medical service to give a dose of IV Lasix for mild pleural effusion PHYSICAL EXAM: VITAL SIGNS: Reviewed. GENERAL: Well-developed in no acute distress. HEENT: No sclera icterus. Extraocular movements grossly intact. Moist buccal mucosa. Head is atraumatic, normocephalic. ABDOMEN: Soft. Nondistended. Incisional dressing clean dry and intact. SANTA drain with sanguinous output NEUROLOGIC: Alert and oriented. Cranial nerves II through XII grossly intact. ASSESSMENT: 1. Panniculus and incisional hernias. Patient status post panniculectomy and repair of several incisional hernias. Postop day #2 PLAN: -Consult pulmonary service regarding patient's hypoxia -Encourage patient to ambulate -Encourage patient to use incentive spirometer -Continue pain medication as needed -Continue [facility] -Patient is stable from surgical standpoint for discharge when medically cleared Physician E Business Manager note has been reviewed by physician. Signing provider agrees with the documented findings, assessment, and plan of care. Objective - Vital Signs Vital signs: Vital Signs Temp 98.4 F 05/24/21 07:30 Pulse 63 05/24/21 09:04 Resp 19 05/24/21 07:30 BP 147/82 05/24/21 07:30 Pulse Ox 90 L 05/24/21 07:30 Intake & Output 05/23/21 05/24/21 05/24/21 18:59 06:59 18:59 Output Total 660 140 Balance -660 -140 Output: Drainage 60 140 Lower Anterior Abdomen 60 140 Urine 600 Other: Voiding Method Indwelling Catheter Toilet # Voids 1 - Labs CBC & Chem 7: 05/24/21 06:25 05/23/21 09:20 Labs: Abnormal Lab Results - Last 24 Hours (Table) 05/23/21 05/23/21 05/24/21 Range/Units 16:52 20:11 06:25 RBC 3.61 L (4.10-5.20) X 10*6/uL Hgb 11.8 L (12.0-15.0) g/dL Hct 36.8 L (37.2-46.3) % MCV 101.9 H (80.0-97.0) fL MCH 32.7 H (27.0-32.0) pg POC Glucose (mg/dL) 139 H 167 H (75-99) mg/dL 05/24/21 05/24/21 05/24/21 Range/Units 07:03 11:29 11:29 RBC (4.10-5.20) X 10*6/uL Hgb (12.0-15.0) g/dL Hct (37.2-46.3) % MCV (80.0-97.0) fL MCH (27.0-32.0) pg POC Glucose (mg/dL) 113 H 165 H 165 H (75-99) mg/dL 05/24/21 05/24/21 05/24/21 Range/Units 11:29 11:29 11:29 RBC (4.10-5.20) X 10*6/uL Hgb (12.0-15.0) g/dL Hct (37.2-46.3) % MCV (80.0-97.0) fL MCH (27.0-32.0) pg POC Glucose (mg/dL) 165 H 165 H 165 H (75-99) mg/dL 05/24/21 05/24/21 05/24/21 Range/Units 11:29 11:29 11:29 RBC (4.10-5.20) X 10*6/uL Hgb (12.0-15.0) g/dL Hct (37.2-46.3) % MCV (80.0-97.0) fL MCH (27.0-32.0) pg POC Glucose (mg/dL) 165 H 165 H 165 H (75-99) mg/dL
--- NOTE | 2021-05-24 15:24 | P.CNPUL ---
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 Patient also has a history of cervical and colon cancer status post chemo and radiation currently in remission. Patient had a loop recorder placed in December 2020 following her most recent CVA. She usually follows with Dr. Blackmon from the [facility]. Patient denies any chronic lung issues. See a diversity specialist, usually not oxygen dependent. Patient came in on 05/22/2021 for elective panniculus, patient has been having skin irritation rashes at her panniculus. Following the procedure on the second postoperative day she started experiencing increased shortness of breath and required placement on supplemental oxygen. She was placed on 4 L of oxygen pulse ox is 90%. Chest x- ray was completed, showing basilar atelectasis and possible associated effusions. Today's blood work shows normal white count of 8.5, hemoglobin is 11.8, yesterday's BMP shows sodium 136, potassium is 4.6, chloride is 102, CO2 is 29, BUN 22, creatinine 0.7. ProBNP came back at 730. Lung sounds reveal diminished breath sounds with some mild fine crackles at the left base. Patient is having incisional pain, and she states that could be limiting her deep breathing in addition to having abdominal binder. No wheezing, only occasional cough, and at times she is bringing up some rahman colored secretions. Review of Systems All systems: negative Constitutional: Denies chills, Denies fever Eyes: denies blurred vision, denies pain Ears, nose, mouth and throat: Denies headache, Denies sore throat Cardiovascular: Denies chest pain, Denies shortness of breath Respiratory: Reports pain on inspiration, Denies cough Gastrointestinal: Denies abdominal pain, Denies diarrhea, Denies nausea, Denies vomiting Genitourinary: Denies dysuria, Denies hematuria Musculoskeletal: Denies myalgias Integumentary: Denies pruritus, Denies rash Neurological: Denies numbness, Denies weakness Psychiatric: Denies anxiety, Denies depression Endocrine: Denies fatigue, Denies weight change Past Medical History Past Medical History: Cancer, CVA/TIA, Diabetes Mellitus, GERD/Reflux, Hyperlipidemia, Hypertension, Sleep Apnea/CPAP/BIPAP Additional Past Medical History / Comment(s): states 7 strokes, states left foot drop, and wears an AFO, hx of cervical CA, and colon CA 2002, had chemo and radiation, restless leg, neuropathy tr legs, rash under abdominal flap, states has had weight loss, at one time weighed 545lbs History of Any Multi-Drug Resistant Organisms: None Reported Past Surgical History: Bowel Resection, Heart Catheterization With Stent, Hernia Repair, Hysterectomy, Joint Replacement, Pacemaker Additional Past Surgical History / Comment(s): hx of colostomy, and then reversal, tr cataract sx, left hip replaced, states had 5 hernia repairs with mesh Past Anesthesia/Blood Transfusion Reactions: No Reported Reaction Date of Last Stent Placement:: 2013 Type of Cardiac Device: Permanent Pacemaker Device Placement Date:: 12/23/20 Past Psychological History: Depression Smoking Status: Former smoker Past Alcohol Use History: None Reported Additional Past Alcohol Use History / Comment(s): smokes 1ppd, has smoked up to 3ppd in past Past Drug Use History: Marijuana Additional Drug Use History / Comment(s): occasional use, instructed to hold 24 hrs - Past Family History Brother(s) Family Medical History: Cancer Sister(s) History Unknown: Yes (Crohn's) Daughter(s) History Unknown: Yes (Cholesteatoma) Son(s) Family Medical History: No Reported History Father Family Medical History: Cancer (Skin cancer), Coronary Artery Disease (CAD), Diabetes Mellitus Mother Family Medical History: Coronary Artery Disease (CAD), CVA/TIA, Diabetes Mellitus Medications and Allergies Home Medications Medication Instructions Recorded Confirmed Type Atorvastatin [Lipitor] 40 mg PO HS 05/16/21 05/16/21 History Cholecalciferol [Vitamin D3 (25 25 mcg PO DAILY 05/16/21 05/16/21 History Mcg = 1000 Iu)] EPINEPHrine (Auto Inject) [Epipen] 0.3 mg IM ONCE PRN 05/16/21 05/16/21 History Fluticasone Nasal Wake [Flonase 2 spr EA NOSTRIL DAILY 05/16/21 05/16/21 History Nasal Wake] Gabapentin [Neurontin] 100 mg PO BID 05/16/21 05/16/21 History Insulin Glargine [Lantus] 35 unit SQ TID 05/16/21 05/22/21 History Metoprolol Tartrate 25 mg PO BID 05/16/21 05/16/21 History Nystatin 100,000 Unit/gm Oint 1 applic TOPICAL DIRECTED 05/16/21 05/16/21 History [Mycostatin Oint] Omeprazole 20 mg PO DAILY 05/16/21 05/16/21 History Pramipexole [Mirapex] 0.125 mg PO DAILY 05/16/21 05/16/21 History Sertraline [Zoloft] 50 mg PO QAM 05/16/21 05/16/21 History Warfarin [Coumadin] 5 mg PO THFRSA 05/16/21 05/16/21 History Warfarin [Coumadin] 10 mg PO SUMOTUWE 05/16/21 05/16/21 History metFORMIN HCL 1,000 mg PO BID 05/16/21 05/16/21 History Docusate [Colace] 100 mg PO BID #30 capsule 05/24/21 Rx HYDROcodone/APAP 7.5-325MG [[place] 1 tab PO Q6HR PRN 3 Days #12 tab 05/24/21 Rx 7.5-325] Allergies Allergy/AdvReac Type Severity Reaction Status Date / Time bee venom protein (honey bee) Allergy Anaphylaxis Verified 05/22/21 12:02 cephalexin [From Keflex] Allergy Rash/Hives Verified 05/22/21 12:02 latex Allergy Rash/Hives Verified 05/22/21 12:02 Penicillins Allergy Swelling Verified 05/22/21 12:02 Sulfa (Sulfonamide Allergy Unknown Verified 05/22/21 12:02 Antibiotics) Physical Exam Vitals: Vital Signs Temp Pulse Pulse Pulse Resp BP Pulse Ox 05/24/21 09:04 63 05/24/21 07:30 98.4 F 71 19 147/82 90 L 05/24/21 01:22 98.3 F 65 18 145/69 93 L 05/23/21 20:00 98.4 F 62 16 129/49 93 L 05/23/21 19:07 60 05/23/21 18:53 64 05/23/21 15:18 61 05/23/21 15:10 68 05/23/21 14:00 98.6 F 68 18 130/61 92 L Intake and Output 05/23/21 05/24/21 05/24/21 22:59 06:59 14:59 Output Total 660 140 Balance -660 -140 Output: Drainage 60 140 Lower Anterior Abdomen 60 140 Urine 600 Other: Voiding Method Toilet # Voids 1 GENERAL EXAM: Alert, very pleasant, 70-year-old white female, on 2 L of oxygen currently, with pulse ox of 94%, in the recliner, comfortable in no apparent distress. HEAD: Normocephalic/atraumatic. EYES: Normal reaction of pupils, equal size. Conjunctiva pink, sclera white. NOSE: Clear with pink turbinates. THROAT: No erythema or exudates. NECK: No masses, no JVD, no thyroid enlargement, no adenopathy. CHEST: No chest wall deformity. Symmetrical expansion. LUNGS: Equal air entry with minimal fine rales at the left base CVS: Regular rate and rhythm, normal S1 and S2, no gallops, no murmurs, no rubs ABDOMEN: Soft, nontender. No hepatosplenomegaly, normal bowel sounds, no guarding or rigidity. Mid abdominal incision with the denny that are intact, covered with a dressing, and there is a transverse incision across the lower abdomen with denny that are intact. 2 SANTA drains one in each groin with minimal serosanguineous output, compressed and draining EXTREMITIES: No clubbing, no edema, no cyanosis, 2+ pulses and upper and lower e xtremities. MUSCULOSKELETAL: Muscle strength and tone normal. SPINE: No scoliosis or deformity SKIN: No rashes CENTRAL NERVOUS SYSTEM: Alert and oriented -3. No focal deficits, tone is normal in all 4 extremities. PSYCHIATRIC: Alert and oriented -3. Appropriate affect. Intact judgment and insight. Results - Laboratory Findings CBC and BMP: 05/24/21 06:25 05/23/21 09:20 Abnormal lab findings: Abnormal Labs 05/22/21 05/22/21 05/22/21 12:23 16:29 20:32 WBC RBC Hgb Hct MCV MCH Neutrophils # Sodium BUN Glucose POC Glucose (mg/dL) 131 H 147 H 152 H 05/23/21 05/23/21 05/23/21 07:01 09:20 09:20 WBC 11.0 H RBC Hgb Hct MCV 100.8 H MCH Neutrophils # 8.5 H Sodium 136 L BUN 22 H Glucose 232 H POC Glucose (mg/dL) 123 H 05/23/21 05/23/21 05/23/21 11:17 16:52 20:11 WBC RBC Hgb Hct MCV MCH Neutrophils # Sodium BUN Glucose POC Glucose (mg/dL) 174 H 139 H 167 H 05/24/21 05/24/21 05/24/21 06:25 07:03 11:29 WBC RBC 3.61 L Hgb 11.8 L Hct 36.8 L MCV 101.9 H MCH 32.7 H Neutrophils # Sodium BUN Glucose POC Glucose (mg/dL) 113 H 165 H 05/24/21 05/24/21 05/24/21 11:29 11:29 11:29 WBC RBC Hgb Hct MCV MCH Neutrophils # Sodium BUN Glucose POC Glucose (mg/dL) 165 H 165 H 165 H 05/24/21 05/24/21 05/24/21 11:29 11:29 11:29 WBC RBC Hgb Hct MCV MCH Neutrophils # Sodium BUN Glucose POC Glucose (mg/dL) 165 H 165 H 165 H 05/24/21 11:29 WBC RBC Hgb Hct MCV MCH Neutrophils # Sodium BUN Glucose POC Glucose (mg/dL) 165 H - Diagnostic Findings Chest x-ray: report reviewed, image reviewed Additional studies: Echocardiogram reviewed Assessment and Plan Plan: Assessment: #1. Acute hypoxic respiratory failure related to postoperative atelectasis, and small pleural effusions #2. Panniculus, status post panniculectomy and repair of several incisional hernias postoperative day #2 #3. Severe aortic valve stenosis, and patient was recommended to undergo aortic valve replacement one year ago which she has been putting off due to COVID 19 pandemic #4. History of chronic tobacco dependence, patient carries 52 years of smoking, one or 2 packs daily, in remission for the past 2 weeks #5. Paroxysmal A. fib, on Coumadin #6. Status post loop recorder placement in December 2020 #7. History of CVA 7 #8. Diabetes because type II #9. Coronary artery disease with previous history of PCI and stenting #10. History of hypertension #11. History of colon cancer with history of colostomy and subsequent reversal #12. History of cervical cancer, currently in remission #13. History of super obesity, status post significant weight loss with a total of 390 pounds in last 15 years Plan: Chest x-ray has been reviewed, echocardiogram has been reviewed, patient was seen and examined together with Dr. Wright Patient was given 1 dose of IV Lasix No significant wheezing Continue breathing treatments Wean FiO2 Likely discharge home tomorrow if remains stable and off the oxygen I performed a history & physical examination of the patient and discussed their management with my nurse practitioner, Anu Nieto. I reviewed the nurse practitioner's note and agree with the documented findings and plan of care. Lung sounds are positive for diminished breath sounds. The findings and the impression was discussed with the patient. I attest to the documentation by the nurse practitioner. Time with Patient: Greater than 30
[2021-05-24 16:31] LABS: Glucose,Whole Blood 130 mg/dL (75-99)
[2021-05-24] MEDS: ATORVASTATIN 40 MG TAB PO SCH (21:30)
[2021-05-24] MEDS: metFORMIN 500 MG TAB PO SCH (21:30)
[2021-05-24] MEDS: GABAPENTIN 100 MG CAP PO SCH (21:31)
[2021-05-24 21:48] LABS: Glucose,Whole Blood 217 mg/dL (75-99)
[2021-05-25] MEDS: HYDROcodone/APAP 5-325MG 1 EACH TAB PO PRN ×3 (00:59→21:26)
[2021-05-25 06:40] LABS: Glucose,Whole Blood 113 mg/dL (75-99)
[2021-05-25] MEDS: INSULIN ASPART (NovoLOG) 100 UNIT/ML VIAL SQ SCH ×4 (07:16→21:27)
[2021-05-25] MEDS: IPRATROPIUM-ALBUTEROL 3 ML NEB INHALATION SCH ×4 (08:12→19:32)
[2021-05-25 08:54] LABS: INR 0.9 (<1.2)
[2021-05-25 09:04] LABS: ALT 35 U/L (4-34); AST 42 U/L (14-36); African American GFR (CKD) >90 (>60 ml/min/1.73 sqM); Albumin 3.8 g/dL (3.5-5.0); Albumin/Globulin Ratio 1.5; Alkaline Phosphatase 155 U/L (38-126); Anion Gap 8 mmol/L; Blood Urea Nitrogen 17 mg/dL (7-17); Calcium 9.4 mg/dL (8.4-10.2); Carbon Dioxide 29 mmol/L (22-30); Chloride 100 mmol/L (98-107); Globulin 2.6 g/dL; Glucose 152 mg/dL (74-99); Non-African American GFR(CKD) >90 (>60 ml/min/1.73 sqM); Potassium 4.2 mmol/L (3.5-5.1); Sodium 137 mmol/L (137-145); Total Bilirubin 1.3 mg/dL (0.2-1.3); Total Protein 6.4 g/dL (6.3-8.2)
[2021-05-25] MEDS: PANTOPRAZOLE 40 MG TABLET PO SCH (09:41)
[2021-05-25] MEDS: CHOLECALCIFEROL 25 MCG (1000 IU) TABLET PO SCH (09:41)
[2021-05-25] MEDS: metFORMIN 500 MG TAB PO SCH ×2 (09:41→21:27)
[2021-05-25] MEDS: PRAMIPEXOLE 0.125 MG TAB PO SCH (09:42)
[2021-05-25] MEDS: GABAPENTIN 100 MG CAP PO SCH ×2 (09:42→21:27)
[2021-05-25] MEDS: METOPROLOL TARTRATE 25 MG TAB PO SCH ×2 (09:42→21:27)
[2021-05-25] MEDS: DOCUSATE 100 MG CAP PO SCH ×2 (09:42→21:27)
[2021-05-25] MEDS: ENOXAPARIN 40 MG/0.4 ML SYRINGE SQ SCH (09:42)
[2021-05-25] MEDS: SERTRALINE 50 MG TAB PO SCH (09:42)
[2021-05-25] MEDS: FLUTICASONE 50MCG/SPRAY NASAL 16GM EA NOSTRIL SCH (09:43)
--- NOTE | 2021-05-25 10:19 | P.PN ---
Subjective Progress Note Date: 05/25/21 Principal diagnosis: Panniculitis Patient having mild pain today. Still short of breath when walking. No fevers. Remains on oxygen. Objective - Vital Signs Vital signs: Vital Signs Temp 98.7 F 05/25/21 07:03 Pulse 76 05/25/21 08:23 Resp 17 05/25/21 07:03 BP 143/73 05/25/21 07:03 Pulse Ox 90 L 05/25/21 07:03 Intake & Output 05/24/21 05/25/21 05/25/21 18:59 06:59 18:59 Output Total 220 100 55 Balance -220 -100 -55 Output: Drainage 220 100 55 Left Lower Abdomen 40 60 40 Lower Anterior Abdomen 140 Right Lower Abdomen 40 40 15 Other: Voiding Method Toilet Bedside Commode # Voids 5 1 - Exam Abdomen: Soft, dressing in place, mild tenderness, drain serosanguineous - Labs CBC & Chem 7: 05/24/21 06:25 05/25/21 08:13 Labs: Abnormal Lab Results - Last 24 Hours (Table) 05/24/21 05/24/21 05/24/21 Range/Units 11:29 11:29 11:29 Glucose (74-99) mg/dL POC Glucose (mg/dL) 165 H 165 H 165 H (75-99) mg/dL AST (14-36) U/L ALT (4-34) U/L Alkaline Phosphatase (38-126) U/L TSH (0.465-4.680) mIU/L 05/24/21 05/24/21 05/24/21 Range/Units 11:29 11:29 11:29 Glucose (74-99) mg/dL POC Glucose (mg/dL) 165 H 165 H 165 H (75-99) mg/dL AST (14-36) U/L ALT (4-34) U/L Alkaline Phosphatase (38-126) U/L TSH (0.465-4.680) mIU/L 05/24/21 05/24/21 05/24/21 Range/Units 11:29 11:29 16:29 Glucose (74-99) mg/dL POC Glucose (mg/dL) 165 H 165 H 130 H (75-99) mg/dL AST (14-36) U/L ALT (4-34) U/L Alkaline Phosphatase (38-126) U/L TSH (0.465-4.680) mIU/L 05/24/21 05/25/21 05/25/21 Range/Units 21:46 06:37 08:13 Glucose 152 H (74-99) mg/dL POC Glucose (mg/dL) 217 H 113 H (75-99) mg/dL AST 42 H (14-36) U/L ALT 35 H (4-34) U/L Alkaline Phosphatase 155 H (38-126) U/L TSH 5.790 H (0.465-4.680) mIU/L Assessment and Plan (1) Panniculitis Narrative/Plan: Patient still with some dyspnea on exertion. Await pulmonary evaluation today. Repeat labs tomorrow. Current Visit: Yes Status: Acute Code(s): M79.3 - PANNICULITIS, UNSPECIFIED SNOMED Code(s): 24441206
--- NOTE | 2021-05-25 10:30 | P.PN ---
Subjective Progress Note Date: 05/25/21 This is a 70-year-old white female patient with past medical history of hypertension, diabetes mellitus type 2, extensive history of smoking, 1-2 packs a day for 52 years, severe aortic valve stenosis, CVA 7, with her last CVA in December 2020, obstructive sleep apnea on CPAP therapy at 9 cm of water, morbid obesity with a thickened weight loss over last several years and patient has lost a total of 300 pounds over a period of 15 years. Patient also has a history of cervical and colon cancer status post chemo and radiation currently in remission. Patient had a loop recorder placed in December 2020 following her most recent CVA. She usually follows with Dr. Blackmon from the [facility]. Patient denies any chronic lung issues. See a epic cupid specialists, usually not oxygen dependent. Patient came in on 05/22/2021 for elective panniculus, patient has been having skin irritation rashes at her panniculus. Following the procedure on the second postoperative day she started experiencing increased shortness of breath and required placement on supplemental oxygen. She was placed on 4 L of oxygen pulse ox is 90%. Chest x-ray was completed, showing basilar atelectasis and possible associated effusions. Today's blood work shows normal white count of 8.5, hemoglobin is 11.8, yesterday's BMP shows sodium 136, potassium is 4.6, chloride is 102, CO2 is 29, BUN 22, creatinine 0.7. ProBNP came back at 730. Lung sounds reveal diminished breath sounds with some mild fine crackles at the left base. Patient is having incisional pain, and she states that could be limiting her deep breathing in addition to having abdominal binder. No wheezing, only occasional cough, and at times she is bringing up some rahman colored secretions. 05/25/2021, the patient is feeling better. No new complaints for now. She is using incentive spirometer. She is pulling approximately 2000 on her eye has. She was given a dose of Lasix yesterday and the patient was placed on oral Lasix today. Surgical wound site is dry clean and intact. No chest pain. No significant shortness of breath which is tolerating her diet. She is ambulating. No nausea or vomiting. No diarrhea or abdominal pain. No chest pain. She is utilizing her CPAP overnight. The drain output was noted. There is serosanguineous. Output from the left is 40 and on the rise and was 15. Objective - Vital Signs Vital signs: Vital Signs Temp 98.7 F 05/25/21 07:03 Pulse 76 05/25/21 08:23 Resp 17 05/25/21 07:03 BP 143/73 05/25/21 07:03 Pulse Ox 90 L 05/25/21 07:03 Intake & Output 05/24/21 05/25/21 05/25/21 18:59 06:59 18:59 Output Total 220 100 55 Balance -220 -100 -55 Output: Drainage 220 100 55 Left Lower Abdomen 40 60 40 Lower Anterior Abdomen 140 Right Lower Abdomen 40 40 15 Other: Voiding Method Toilet Bedside Commode # Voids 5 1 - Exam GENERAL EXAM: Alert, very pleasant, 70-year-old white female, on 2 L of oxygen currently, with pulse ox of 94%, in the recliner, comfortable in no apparent distress. HEAD: Normocephalic/atraumatic. EYES: Normal reaction of pupils, equal size. Conjunctiva pink, sclera white. NOSE: Clear with pink turbinates. THROAT: No erythema or exudates. NECK: No masses, no JVD, no thyroid enlargement, no adenopathy. CHEST: No chest wall deformity. Symmetrical expansion. LUNGS: Equal air entry with minimal fine rales at the left base CVS: Regular rate and rhythm, normal S1 and S2, no gallops, no murmurs, no rubs ABDOMEN: Soft, nontender. No hepatosplenomegaly, normal bowel sounds, no guarding or rigidity. Mid abdominal incision with the denny that are intact, covered with a dressing, and there is a transverse incision across the lower abdomen with denny that are intact. 2 SANTA drains one in each groin with minimal serosanguineous output, compressed and draining EXTREMITIES: No clubbing, no edema, no cyanosis, 2+ pulses and upper and lower extremities. MUSCULOSKELETAL: Muscle strength and tone normal. SPINE: No scoliosis or deformity SKIN: No rashes CENTRAL NERVOUS SYSTEM: Alert and oriented -3. No focal deficits, tone is normal in all 4 extremities. PSYCHIATRIC: Alert and oriented -3. Appropriate affect. Intact judgment and insight. - Labs CBC & Chem 7: 05/24/21 06:25 05/25/21 08:13 Labs: Abnormal Lab Results - Last 24 Hours (Table) 05/24/21 05/24/21 05/24/21 Range/Units 11:29 11:29 11:29 Glucose (74-99) mg/dL POC Glucose (mg/dL) 165 H 165 H 165 H (75-99) mg/dL AST (14-36) U/L ALT (4-34) U/L Alkaline Phosphatase (38-126) U/L TSH (0.465-4.680) mIU/L 05/24/21 05/24/21 05/24/21 Range/Units 11:29 11:29 11:29 Glucose (74-99) mg/dL POC Glucose (mg/dL) 165 H 165 H 165 H (75-99) mg/dL AST (14-36) U/L ALT (4-34) U/L Alkaline Phosphatase (38-126) U/L TSH (0.465-4.680) mIU/L 05/24/21 05/24/21 05/24/21 Range/Units 11:29 11:29 16:29 Glucose (74-99) mg/dL POC Glucose (mg/dL) 165 H 165 H 130 H (75-99) mg/dL AST (14-36) U/L ALT (4-34) U/L Alkaline Phosphatase (38-126) U/L TSH (0.465-4.680) mIU/L 05/24/21 05/25/21 05/25/21 Range/Units 21:46 06:37 08:13 Glucose 152 H (74-99) mg/dL POC Glucose (mg/dL) 217 H 113 H (75-99) mg/dL AST 42 H (14-36) U/L ALT 35 H (4-34) U/L Alkaline Phosphatase 155 H (38-126) U/L TSH 5.790 H (0.465-4.680) mIU/L Assessment and Plan Plan: #1. Acute hypoxic respiratory failure related to postoperative atelectasis, and small pleural effusions, the patient was placed on oxygen postoperatively liters. We gave her diuretics. We gave her incentive spirometer. On room air oxygen the pulse ox is 92% for now. #2. Panniculus, status post panniculectomy and repair of several incisional hernias postoperative day 3 #3. Severe aortic valve stenosis, and patient was recommended to undergo aortic valve replacement one year ago which she has been putting off due to COVID 19 pandemic, The patient has severe aortic stenosis with a gradient of 61 peak, for the mean. #4. History of chronic tobacco dependence, patient carries 52 years of smoking, one or 2 packs daily, in remission for the past 2 weeks #5. Paroxysmal A. fib, on Coumadin #6. Status post loop recorder placement in December 2020 #7. History of CVA 7 #8. Diabetes because type II #9. Coronary artery disease with previous history of PCI and stenting #10. History of hypertension #11. History of colon cancer with history of colostomy and subsequent reversal #12. History of cervical cancer, currently in remission #13. History of super obesity, status post significant weight loss with a total of 390 pounds in last 15 years Plan: Continue the incentive spirometer Echo of the heart was noted Agree on oral diuretics, currently on 20 mg of Lasix on a daily basis. Take this patient off the oxygen and monitor oxygen saturation Monitor the SANTA drain output
[2021-05-25] MEDS: FUROSEMIDE 20 MG TAB PO SCH (10:34)
[2021-05-25 11:38] LABS: Glucose,Whole Blood 125 mg/dL (75-99)
--- NOTE | 2021-05-25 12:39 | P.PN ---
Subjective Progress Note Date: 05/25/21 This 70-year-old pleasant female, with known history of cold colon cancer 2002, requiring the chemoradiation, also with history of significant weight loss, at one time she weighed 545 pounds, also has diabetes mellitus, hyperlipidemia, hypertension, obstructive sleep apnea, she also has atrial fibrillation, paroxysmal requiring Coumadin, and has 7 prior CVAs in the past. She also has aortic stenosis, followed by supervisor machine setter in [facility] and has a loop recorder. She now comes in for an elective abdominoplasty secondary to pannus and panniculitis, for which Dr. Sierra has performed the procedure 05/23/2021. She was seen postoperatively in a consult made to our service on 05/24/2021 for medical management. Interestingly, she had called bleed in January of this year, When seen, patient was a little bit hypoxemic, she has an abdominal binder, pulse ox in the 90% with 4 L L, patient does not have any chest pain, but she has a hard time breathing, related to the abdominal binder, patient denies any edema, no CHF the past, does not have any history of PE DVT, she is however Coumadin for cardiac reasons, consult also were made with Dr. Wright pulmonary, she is performing her incentive spirometry, with an capacity of 1500 L only. Hemoglobin is 11.8, blood sugars between 113-167, platelet count is normal, chest x-ray shows bilateral atelectasis, with possible pleural effusion, blunting of costophrenic angles. There is no fever currently, T-max 98.4, heart rate in the 70s, blood pressure 147/82, pulse oximetry currently are not 2 L cannula, 92 percent 05/25: Patient is found resting comfortably in chair in no acute distress. Patient continues to complain of shortness of breath especially with activity. She has been using her incentive spirometer at the bedside. SANTA drains remain in place 2. Patient remains afebrile, respirations 18, pulse rate 60, blood pressure 141/60, pulse ox seen 91% on 2 L of nasal cannula. Patient was given Lasix with positive results, we will continue with by mouth Lasix, and add DuoNeb to her regime. Surgical wound site is dry and clean and intact. Review Of Systems: Constitutional: No fever, no chills, no night sweats. No weight change. No weakness, fatigue or lethargy. No daytime sleepiness. EENT: No headache. No blurred vision or double vision, no loss of vision. No loss of Hearing, no ringing in the ears, no dizziness. No nasal drainage or congestion. No epistaxis. No sore throat. Lungs: No shortness of breath, cough, no sputum production. No wheezing. Cardiovascular: No chest pain, no lower extremity edema. No palpitations. No paroxysmal nocturnal dyspnea. No orthopnea. No lightheadedness or dizziness. No syncopal episodes. Abdominal: no abdominal discomfort. No nausea, vomiting. no diarrhea. No constipation. No bloody or tarry stools. no loss of appetite. Genitourinary: No dysuria, increased frequency, urgency. No urinary retention. Musculoskeletal: No myalgias. No muscle weakness, no gait dysfunction, no frequent falls. No back pain. No neck pain. Integumentary: No wounds, no lesions. No rash or pruritus. No unusual bruising. No change in hair or nails. Neurologic: No aphasia. No facial droop. No change in mentation. No head injury. No headache. No paralysis. No paresthesia. Psychiatric: No depression. No anxiety. No mood swings. Endocrine: No abnormal blood sugars. No weight change. No excessive sweating or thirst. Physical exam: General Appearance: Alert, cooperative, no distress, appears stated age. Neck HEENT: Supple, no lymphadenopathy, no thyroid enlargement, no carotid bruits. Lungs: Clear to auscultation , with a expiratory wheeze, no rhonchi, no deformity. Chest Wall: Chest wall normal expansion with deep inspiration no tenderness and no deformity was found on exam, no costochondral pain or discomfort. Heart: Regular rate and rhythm, S1, S2 normal, no murmur, rub or gallop. Back: Symmetric, no curvature, ROM normal, no CVA tenderness. Abdomen: Soft, tender, mid abdominal incision with denny intact surgical site dressing clean and dry and intact, transverse incision across the lower abdomen denny that are intact 2 SANTA drains on each side of groin with minimal serosanguineous output, compress and draining. no rebound or rigidity, no hepatosplenomegaly. Extremities: Extremities normal, atraumatic, no cyanosis or edema. Pulses: 2+ and symmetric. Skin: Skin color, texture, tugor normal, no rashes or lesions. Neurologic: Alert oriented x3 cranial nerves II through XII intact, no motor deficit, no abnormal balance or gait Assessment/plan: 1. History of super obesity, now has underlying panniculitis, requiring elective panniculectomy, performed by Dr. Sierra 05/22/2006/04/2021, patient is doing incentive spirometry, with abdominal binder, patient is having difficu lties in maximizing her incentive spirometry, she does have bilateral atelectasis, patient's encouraged to pursue further treatment for the atelectasis.. And PEEP proBNP 7:30, 2. Atelectasis, with acute hypoxemic respiratory failure, related to abdominal binder use, and atelectasis, monitor, continue on incentive spirometry, O2 supplementation, monitor chest x-ray, Dr. Wright to see the patient. Patient denies any history of PE or DVT in the past DuoNeb, continue with DuoNeb, 3. Mild pleural effusion, tea with by mouth Lasix 20 mg daily 2. History of long-term anticoagulation, secondary to atrial fibrillation, has 7 CVAs related to atrial fibrillation, no history of PE, 3. Diabetes mellitus type 2, on metformin and restart 4. CAD, with heart stents in the past, 5. History of colon cancer with history of colostomy with reversal 6. History of a loop recorder, pacemaker, most of the records were at [facility] 7 Long-term anticoagulation, we'll restart Coumadin once cleared by general surgery, to start within the next 24 hours 8. DVT prophylaxis, IV Protonix 9. GI prophylaxis Lovenox 40 Thank you for the consultation we'll continue to follow this patient along with you. Impression and plan of care have been directed as dictated by the signing physic ian. Abigail Enriquez nurse practitioner acting as scribe for signing physician. Objective - Vital Signs Vital signs: Vital Signs Temp 98.7 F 05/25/21 07:03 Pulse 60 05/25/21 12:06 Resp 18 05/25/21 11:38 BP 143/73 05/25/21 07:03 Pulse Ox 91 L 05/25/21 11:54 Intake & Output 05/24/21 05/25/21 05/25/21 18:59 06:59 18:59 Output Total 220 100 55 Balance -220 -100 -55 Output: Drainage 220 100 55 Left Lower Abdomen 40 60 40 Lower Anterior Abdomen 140 Right Lower Abdomen 40 40 15 Other: Voiding Method Toilet Bedside Commode Bedside Commode # Voids 5 1 - Labs CBC & Chem 7: 05/24/21 06:25 05/25/21 08:13 Labs: Abnormal Lab Results - Last 24 Hours (Table) 05/24/21 05/24/21 05/25/21 Range/Units 16:29 21:46 06:37 Glucose (74-99) mg/dL POC Glucose (mg/dL) 130 H 217 H 113 H (75-99) mg/dL AST (14-36) U/L ALT (4-34) U/L Alkaline Phosphatase (38-126) U/L TSH (0.465-4.680) mIU/L 05/25/21 05/25/21 Range/Units 08:13 11:35 Glucose 152 H (74-99) mg/dL POC Glucose (mg/dL) 125 H (75-99) mg/dL AST 42 H (14-36) U/L ALT 35 H (4-34) U/L Alkaline Phosphatase 155 H (38-126) U/L TSH 5.790 H (0.465-4.680) mIU/L
[2021-05-25 16:33] LABS: Glucose,Whole Blood 142 mg/dL (75-99)
[2021-05-25 20:28] LABS: Glucose,Whole Blood 193 mg/dL (75-99)
[2021-05-25] MEDS: ATORVASTATIN 40 MG TAB PO SCH (21:27)
[2021-05-26 06:41] LABS: Basophils # (A) 0.1 k/uL (0-0.2); Basophils % (A) 1 %; Eosinophils # (A) 0.2 k/uL (0-0.7); Eosinophils % (A) 2 %; HCT 36.6 % (34.0-46.0); HGB 12.4 gm/dL (11.4-16.0); Lymphocytes % (A) 23 %; MCHC 33.9 g/dL (31.0-37.0); MCV 100.4 fL (80.0-100.0); Mean Platelet Volume 8.2; Monocytes # (A) 0.6 k/uL (0-1.0); Monocytes % (A) 7 %; Neutrophils # (A) 5.9 k/uL (1.3-7.7); Neutrophils % (A) 67 %; Platelet Count 205 k/uL (150-450); RBC 3.65 m/uL (3.80-5.40); RDW 13.3 % (11.5-15.5); WBC 8.8 k/uL (3.8-10.6)
[2021-05-26 06:43] LABS: Glucose,Whole Blood 106 mg/dL (75-99)
[2021-05-26] MEDS: INSULIN ASPART (NovoLOG) 100 UNIT/ML VIAL SQ SCH ×4 (07:07→21:24)
[2021-05-26] MEDS: HYDROcodone/APAP 5-325MG 1 EACH TAB PO PRN ×2 (08:18→17:40)
[2021-05-26] MEDS: PANTOPRAZOLE 40 MG TABLET PO SCH (08:19)
[2021-05-26] MEDS: SERTRALINE 50 MG TAB PO SCH (08:19)
[2021-05-26] MEDS: FUROSEMIDE 20 MG TAB PO SCH (08:19)
[2021-05-26] MEDS: METOPROLOL TARTRATE 25 MG TAB PO SCH ×2 (08:20→21:25)
[2021-05-26] MEDS: CHOLECALCIFEROL 25 MCG (1000 IU) TABLET PO SCH (08:20)
[2021-05-26] MEDS: metFORMIN 500 MG TAB PO SCH ×2 (08:20→21:24)
[2021-05-26] MEDS: FLUTICASONE 50MCG/SPRAY NASAL 16GM EA NOSTRIL SCH (08:20)
[2021-05-26] MEDS: GABAPENTIN 100 MG CAP PO SCH ×2 (08:20→21:25)
[2021-05-26] MEDS: PRAMIPEXOLE 0.125 MG TAB PO SCH (08:20)
[2021-05-26] MEDS: ENOXAPARIN 40 MG/0.4 ML SYRINGE SQ SCH (08:20)
[2021-05-26] MEDS: DOCUSATE 100 MG CAP PO SCH ×2 (08:20→21:25)
[2021-05-26] MEDS: IPRATROPIUM-ALBUTEROL 3 ML NEB INHALATION SCH ×4 (08:54→21:20)
--- NOTE | 2021-05-26 08:55 | P.PN ---
Subjective Progress Note Date: 05/26/21 Principal diagnosis: Panniculitis Patient says her breathing has improved. Abdominal discomfort 7 out of 10 this morning. SANTA drain serosanguineous. White blood cell count 8.8, hemoglobin 12.4. Objective - Vital Signs Vital signs: Vital Signs Temp 97.8 F 05/26/21 07:16 Pulse 81 05/26/21 07:16 Resp 17 05/26/21 07:16 BP 147/69 05/26/21 07:16 Pulse Ox 90 L 05/26/21 07:16 Intake & Output 05/25/21 05/26/21 05/26/21 18:59 06:59 18:59 Output Total 55 120 58 Balance -55 -120 -58 Output: Drainage 55 120 58 Left Lower Abdomen 40 80 40 Right Lower Abdomen 15 40 18 Other: Voiding Method Bedside Commode # Voids 3 2 - Exam Abdomen: Soft, nondistended, dressing removed, incision clean and dry, no ischemia noted, mild tenderness - Labs CBC & Chem 7: 05/26/21 05:39 05/25/21 08:13 Labs: Abnormal Lab Results - Last 24 Hours (Table) 05/25/21 05/25/21 05/25/21 Range/Units 08:13 11:35 16:32 RBC (3.80-5.40) m/uL MCV (80.0-100.0) fL Glucose 152 H (74-99) mg/dL POC Glucose (mg/dL) 125 H 142 H (75-99) mg/dL AST 42 H (14-36) U/L ALT 35 H (4-34) U/L Alkaline Phosphatase 155 H (38-126) U/L TSH 5.790 H (0.465-4.680) mIU/L 05/25/21 05/26/21 05/26/21 Range/Units 20:25 05:39 06:40 RBC 3.65 L (3.80-5.40) m/uL MCV 100.4 H (80.0-100.0) fL Glucose (74-99) mg/dL POC Glucose (mg/dL) 193 H 106 H (75-99) mg/dL AST (14-36) U/L ALT (4-34) U/L Alkaline Phosphatase (38-126) U/L TSH (0.465-4.680) mIU/L Assessment and Plan (1) Panniculitis Narrative/Plan: Change abdominal dressings today. Ambulate. Monitor oxygen requirements. Patient states she would like to stay one more night which given her pulmonary issues seems reasonable. Anticipate discharge tomorrow. Current Visit: Yes Status: Acute Code(s): M79.3 - PANNICULITIS, UNSPECIFIED SNOMED Code(s): 61277758
[2021-05-26 10:11] LABS: Glucose,Whole Blood 154 mg/dL (75-99)
--- NOTE | 2021-05-26 11:15 | P.PN ---
Subjective Progress Note Date: 05/26/21 This is a 70-year-old white female patient with past medical history of hypertension, diabetes mellitus type 2, extensive history of smoking, 1-2 packs a day for 52 years, severe aortic valve stenosis, CVA 7, with her last CVA in December 2020, obstructive sleep apnea on CPAP therapy at 9 cm of water, morbid obesity with a thickened weight loss over last several years and patient has lost a total of 300 pounds over a period of 15 years. Patient also has a history of cervical and colon cancer status post chemo and radiation currently in remission. Patient had a loop recorder placed in December 2020 following her most recent CVA. She usually follows with Dr. Blackmon from the [facility]. Patient denies any chronic lung issues. See a chemistry specialist, usually not oxygen dependent. Patient came in on 05/22/2021 for elective panniculus, patient has been having skin irritation rashes at her panniculus. Following the procedure on the second postoperative day she started experiencing increased shortness of breath and required placement on supplemental oxygen. She was placed on 4 L of oxygen pulse ox is 90%. Chest x-ray was completed, showing basilar atelectasis and possible associated effusions. Today's blood work shows normal white count of 8.5, hemoglobin is 11.8, yesterday's BMP shows sodium 136, potassium is 4.6, chloride is 102, CO2 is 29, BUN 22, creatinine 0.7. ProBNP came back at 730. Lung sounds reveal diminished breath sounds with some mild fine crackles at the left base. Patient is having incisional pain, and she states that could be limiting her deep breathing in addition to having abdominal binder. No wheezing, only occasional cough, and at times she is bringing up some rahman colored secretions. 05/25/2021, the patient is feeling better. No new complaints for now. She is using incentive spirometer. She is pulling approximately 2000 on her eye has. She was given a dose of Lasix yesterday and the patient was placed on oral Lasix today. Surgical wound site is dry clean and intact. No chest pain. No significant shortness of breath which is tolerating her diet. She is ambulating. No nausea or vomiting. No diarrhea or abdominal pain. No chest pain. She is utilizing her CPAP overnight. The drain output was noted. There is serosanguineous. Output from the left is 40 and on the rise and was 15. On today's evaluation of 05/26/2021, the patient states that her bleeding is stable and improved. She is on 2 L of oxygen by nasal cannula with a pulse ox of 91%. She had a bout of hypotension as she was getting up to go to the bathroom and this improved. Abdominal discomfort is also stable. SANTA drains are in place. Hemoglobin stable at 12.4. No fever. No chills. She is using incentive spirometer. She is also using the BiPAP overnight. Objective - Vital Signs Vital signs: Vital Signs Temp 97.8 F 05/26/21 07:16 Pulse 67 05/26/21 10:33 Resp 18 05/26/21 10:20 BP 103/57 05/26/21 10:33 Pulse Ox 91 L 05/26/21 10:20 Intake & Output 05/25/21 05/26/21 05/26/21 18:59 06:59 18:59 Output Total 55 120 58 Balance -55 -120 -58 Output: Drainage 55 120 58 Left Lower Abdomen 40 80 40 Right Lower Abdomen 15 40 18 Other: Voiding Method Bedside Commode # Voids 3 2 - Exam GENERAL EXAM: Alert, very pleasant, 70-year-old white female, on 2 L of oxygen currently, with pulse ox of 94%, in the recliner, comfortable in no apparent distress. HEAD: Normocephalic/atraumatic. EYES: Normal reaction of pupils, equal size. Conjunctiva pink, sclera white. NOSE: Clear with pink turbinates. THROAT: No erythema or exudates. NECK: No masses, no JVD, no thyroid enlargement, no adenopathy. CHEST: No chest wall deformity. Symmetrical expansion. LUNGS: Equal air entry with minimal fine rales at the left base CVS: Regular rate and rhythm, normal S1 and S2, no gallops, no murmurs, no rubs ABDOMEN: Soft, nontender. No hepatosplenomegaly, normal bowel sounds, no guarding or rigidity. Mid abdominal incision with the denny that are intact, covered with a dressing, and there is a transverse incision across the lower abdomen with denny that are intact. 2 SANTA drains one in each groin with minimal serosanguineous output, compressed and draining EXTREMITIES: No clubbing, no edema, no cyanosis, 2+ pulses and upper and lower extremities. MUSCULOSKELETAL: Muscle strength and tone normal. SPINE: No scoliosis or deformity SKIN: No rashes CENTRAL NERVOUS SYSTEM: Alert and oriented -3. No focal deficits, tone is normal in all 4 extremities. PSYCHIATRIC: Alert and oriented -3. Appropriate affect. Intact judgment and insight. - Labs CBC & Chem 7: 05/26/21 05:39 05/25/21 08:13 Labs: Abnormal Lab Results - Last 24 Hours (Table) 05/25/21 05/25/21 05/25/21 Range/Units 11:35 16:32 20:25 RBC (3.80-5.40) m/uL MCV (80.0-100.0) fL POC Glucose (mg/dL) 125 H 142 H 193 H (75-99) mg/dL 05/26/21 05/26/21 05/26/21 Range/Units 05:39 06:40 10:09 RBC 3.65 L (3.80-5.40) m/uL MCV 100.4 H (80.0-100.0) fL POC Glucose (mg/dL) 106 H 154 H (75-99) mg/dL Assessment and Plan Plan: #1. Acute hypoxic respiratory failure related to postoperative atelectasis, and small pleural effusions, the patient was placed on oxygen postoperatively liters. We gave her diuretics. We gave her incentive spirometer. 02 requirement is fluctuating and the patient is currently on 2 L #2. Panniculus, status post panniculectomy and repair of several incisional hernias postoperative day 3 #3. Severe aortic valve stenosis, and patient was recommended to undergo aortic valve replacement one year ago which she has been putting off due to COVID 19 pandemic, The patient has severe aortic stenosis with a gradient of 61 peak, for the mean. #4. History of chronic tobacco dependence, patient carries 52 years of smoking, one or 2 packs daily, in remission for the past 2 weeks #5. Paroxysmal A. fib, on Coumadin #6. Status post loop recorder placement in December 2020 #7. History of CVA 7 #8. Diabetes because type II #9. Coronary artery disease with previous history of PCI and stenting #10. History of hypertension #11. History of colon cancer with history of colostomy and subsequent reversal #12. History of cervical cancer, currently in remission #13. History of super obesity, status post significant weight loss with a total of 390 pounds in last 15 years Plan: May need to stop the diuretics as the patient continues to have episodes of hypotension. This can be attributed to her underlying aortic stenosis and use of diuretic Continue the incentive spirometer Echo of the heart was noted Take this patient off the oxygen and monitor oxygen saturation Monitor the SANTA drain output no other changes from a pulmonary standpoint. Continue using incentive spirome ter. We'll continue to follow.
[2021-05-26 11:42] LABS: African American GFR (CKD) >90 (>60 ml/min/1.73 sqM); Anion Gap 6 mmol/L; Blood Urea Nitrogen 18 mg/dL (7-17); Calcium 9.3 mg/dL (8.4-10.2); Carbon Dioxide 30 mmol/L (22-30); Chloride 100 mmol/L (98-107); Glucose 107 mg/dL (74-99); Non-African American GFR(CKD) 81 (>60 ml/min/1.73 sqM); Potassium 4.6 mmol/L (3.5-5.1); Sodium 136 mmol/L (137-145)
[2021-05-26 11:45] LABS: Glucose,Whole Blood 125 mg/dL (75-99)
--- NOTE | 2021-05-26 11:56 | P.PN ---
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 She also has aortic stenosis, followed by sanitation manager in [facility] and has a loop recorder. She now comes in for an elective abdominoplasty secondary to pannus and panniculitis, for which Dr. Sierra has performed the procedure 05/23/2021. She was seen postoperatively in a consult made to our service on 05/24/2021 for medical management. Interestingly, she had called bleed in January of this year, When seen, patient was a little bit hypoxemic, she has an abdominal binder, pulse ox in the 90% with 4 L L, patient does not have any chest pain, but she has a hard time breathing, related to the abdominal binder, patient denies any edema, no CHF the past, does not have any history of PE DVT, she is however Coumadin for cardiac reasons, consult also were made with Dr. Wright pulmonary, she is performing her incentive spirometry, with an capacity of 1500 L only. Hemoglobin is 11.8, blood sugars between 113-167, platelet count is normal, chest x-ray shows bilateral atelectasis, with possible pleural effusion, blunting of costophrenic angles. There is no fever currently, T-max 98.4, heart rate in the 70s, blood pressure 147/82, pulse oximetry currently are not 2 L cannula, 92 percent 05/25: Patient is found resting comfortably in chair in no acute distress. Patient continues to complain of shortness of breath especially with activity. She has been using her incentive spirometer at the bedside. SANTA drains remain in place 2. Patient remains afebrile, respirations 18, pulse rate 60, blood pressure 141/60, pulse ox seen 91% on 2 L of nasal cannula. Patient was given Lasix with positive results, we will continue with by mouth Lasix, and add DuoNeb to her regime. Surgical wound site is dry and clean and intact. 05/26: She was found sitting up at the site of the bed ready to get in the shower. Patient states that her breathing has improved since chest today. She does not have any shortness of breath with activity. She continues to use her incentive spirometer. SANTA drains remain in place 2. She is able to tolerate meals without any difficulties. Patient did have a bowel movement yesterday. She remains afebrile, rate 67, respirations 18, blood pressure 103/57, pulse ox a 91% on 2 L. Review Of Systems: Constitutional: No fever, no chills, no night sweats. No weight change. No weakness, fatigue or lethargy. No daytime sleepiness. EENT: No headache. No blurred vision or double vision, no loss of vision. No loss of Hearing, no ringing in the ears, no dizziness. No nasal drainage or congestion. No epistaxis. No sore throat. Lungs: No shortness of breath, cough, no sputum production. No wheezing. Cardiovascular: No chest pain, no lower extremity edema. No palpitations. No paroxysmal nocturnal dyspnea. No orthopnea. No lightheadedness or dizziness. No syncopal episodes. Abdominal: no abdominal discomfort. No nausea, vomiting. no diarrhea. No constipation. No bloody or tarry stools. no loss of appetite. Genitourinary: No dysuria, increased frequency, urgency. No urinary retention. Musculoskeletal: No myalgias. No muscle weakness, no gait dysfunction, no frequent falls. No back pain. No neck pain. Integumentary: No wounds, no lesions. No rash or pruritus. No unusual bruising. No change in hair or nails. Neurologic: No aphasia. No facial droop. No change in mentation. No head injury. No headache. No paralysis. No paresthesia. Psychiatric: No depression. No anxiety. No mood swings. Endocrine: No abnormal blood sugars. No weight change. No excessive sweating or thirst. Physical exam: General Appearance: Alert, cooperative, no distress, appears stated age. Neck HEENT: Supple, no lymphadenopathy, no thyroid enlargement, no carotid bruits. Lungs: Clear to auscultation , with a expiratory wheeze, no rhonchi, no deformity. Chest Wall: Chest wall normal expansion with deep inspiration no tenderness and no deformity was found on exam, no costochondral pain or discomfort. Heart: Regular rate and rhythm, S1, S2 normal, no murmur, rub or gallop. Back: Symmetric, no curvature, ROM normal, no CVA tenderness. Abdomen: Soft, tender, mid abdominal incision with denny intact surgical site dressing clean and dry and intact, transverse incision across the lower abdomen denny that are intact 2 SANTA drains on each side of groin with minimal serosanguineous output, compress and draining. no rebound or rigidity, no hepatosplenomegaly. Extremities: Extremities normal, atraumatic, no cyanosis or edema. Pulses: 2+ and symmetric. Skin: Skin color, texture, tugor normal, no rashes or lesions. Neurologic: Alert oriented x3 cranial nerves II through XII intact, no motor deficit, no abnormal balance or gait Assessment/plan: 1. History of super obesity, now has underlying panniculitis, requiring elective panniculectomy, performed by Dr. Sierra 05/22/2006/04/2021, patient is doing incentive spirometry, with abdominal binder, patient is having difficulties in maximizing her incentive spirometry, she does have bilateral atelectasis, patient's encouraged to pursue further treatment for the atelectasis.. And PEEP proBNP 7:30, 2. Atelectasis, with acute hypoxemic respiratory failure, related to abdominal binder use, and atelectasis, monitor, continue on incentive spirometry, O2 supplementation, monitor chest x-ray, Dr. Wright to see the patient. Patient denies any history of PE or DVT in the past DuoNeb, continue with DuoNeb, 3. Mild pleural effusion, tea with by mouth Lasix 20 mg daily 2. History of long-term anticoagulation, secondary to atrial fibrillation, has 7 CVAs related to atrial fibrillation, no history of PE, 3. Diabetes mellitus type 2, on metformin and restart 4. CAD, with heart stents in the past, 5. History of colon cancer with history of colostomy with reversal 6. History of a loop recorder, pacemaker, most of the records were at [facility] 7 Long-term anticoagulation, we'll restart Coumadin once cleared by general surgery, to start within the next 24 hours 8. DVT prophylaxis, IV Protonix 9. GI prophylaxis Lovenox 40 Thank you for the consultation we'll continue to follow this patient along with you. Impression and plan of care have been directed as dictated by the signing physician. Abigail Enriquez nurse practitioner acting as scribe for signing physician. Objective - Vital Signs Vital signs: Vital Signs Temp 97.8 F 05/26/21 07:16 Pulse 67 05/26/21 10:33 Resp 18 05/26/21 10:20 BP 103/57 05/26/21 10:33 Pulse Ox 91 L 05/26/21 10:20 Intake & Output 05/25/21 05/26/21 05/26/21 18:59 06:59 18:59 Output Total 55 120 58 Balance -55 -120 -58 Output: Drainage 55 120 58 Left Lower Abdomen 40 80 40 Right Lower Abdomen 15 40 18 Other: Voiding Method Bedside Commode Toilet # Voids 3 2 - Labs CBC & Chem 7: 05/26/21 05:39 05/26/21 05:39 Labs: Abnormal Lab Results - Last 24 Hours (Table) 05/25/21 05/25/21 05/26/21 Range/Units 16:32 20:25 05:39 RBC 3.65 L (3.80-5.40) m/uL MCV 100.4 H (80.0-100.0) fL Sodium (137-145) mmol/L BUN (7-17) mg/dL Glucose (74-99) mg/dL POC Glucose (mg/dL) 142 H 193 H (75-99) mg/dL 05/26/21 05/26/21 05/26/21 Range/Units 05:39 06:40 10:09 RBC (3.80-5.40) m/uL MCV (80.0-100.0) fL Sodium 136 L (137-145) mmol/L BUN 18 H (7-17) mg/dL Glucose 107 H (74-99) mg/dL POC Glucose (mg/dL) 106 H 154 H (75-99) mg/dL 05/26/21 Range/Units 11:41 RBC (3.80-5.40) m/uL MCV (80.0-100.0) fL Sodium (137-145) mmol/L BUN (7-17) mg/dL Glucose (74-99) mg/dL POC Glucose (mg/dL) 125 H (75-99) mg/dL
--- NOTE | 2021-05-26 13:10 | CT ---
EXAMINATION TYPE: CT angio chest DATE OF EXAM: 05/26/2021 COMPARISON: Chest x-ray 05/24/2021 HISTORY: SOB, recent surgery CT DLP: 422.7 mGycm Automated exposure control for dose reduction was used. CONTRAST: CTA scan of the thorax is performed with IV Contrast, patient injected with 100 mL of Isovue 370, pul monary embolism protocol. MIP images are created and reviewed. 3D reconstructed images are created on an independent workstation and reviewed. FINDINGS: LUNGS: The lungs are remarkable for consolidation of the bilateral lower lobes. There is no pleural effusion or pneumothorax seen. The tracheobronchial tree is markable for an air-fluid level in the right lower lobe bronchus, soft tissue in the left lower lobe bronchus. AORTA: No additional significant abnormality is seen. MEDIASTINUM: There is satisfactory enhancement of the pulmonary artery and its branches, there is no CT evidence for pulmonary embolism. There are no greater than 1 cm hilar or mediastinal lymph nodes. No pericardial effusion is seen. There are coronary artery calcifications present. OTHER: Compression deformity noted at the lower thoracic thoracic level, thought to be T10 superior endplate. IMPRESSION: THERE MAY BE MUCUS PLUGGING IN THE LOWER LOBE BRONCHI with associated atelectasis, correlate to exclu de pneumonia. No evident pulmonary embolism.
[2021-05-26 16:31] LABS: Glucose,Whole Blood 119 mg/dL (75-99)
[2021-05-26 20:36] LABS: Glucose,Whole Blood 172 mg/dL (75-99)
[2021-05-26] MEDS ORDERED: BENZOCAINE/MENTHOL LOZENG 1 EACH LOZENGE MUCOUS MEM PRN (21:17)
[2021-05-26] MEDS: ATORVASTATIN 40 MG TAB PO SCH (21:24)
[2021-05-27] MEDS: HYDROcodone/APAP 5-325MG 1 EACH TAB PO PRN ×2 (05:31→11:42)
[2021-05-27 07:03] LABS: Glucose,Whole Blood 138 mg/dL (75-99)
[2021-05-27] MEDS: IPRATROPIUM-ALBUTEROL 3 ML NEB INHALATION SCH ×3 (07:16→15:48)
[2021-05-27] MEDS: SERTRALINE 50 MG TAB PO SCH (08:05)
[2021-05-27] MEDS: METOPROLOL TARTRATE 25 MG TAB PO SCH (08:05)
[2021-05-27] MEDS: metFORMIN 500 MG TAB PO SCH (08:05)
[2021-05-27] MEDS: DOCUSATE 100 MG CAP PO SCH (08:05)
[2021-05-27 08:06] VITALS: RESP 17
[2021-05-27] MEDS: GABAPENTIN 100 MG CAP PO SCH (08:06)
[2021-05-27] MEDS: PRAMIPEXOLE 0.125 MG TAB PO SCH (08:06)
[2021-05-27] MEDS: CHOLECALCIFEROL 25 MCG (1000 IU) TABLET PO SCH (08:06)
[2021-05-27] MEDS: PANTOPRAZOLE 40 MG TABLET PO SCH (08:06)
[2021-05-27] MEDS: FUROSEMIDE 20 MG TAB PO SCH (08:09)
[2021-05-27] MEDS: FLUTICASONE 50MCG/SPRAY NASAL 16GM EA NOSTRIL SCH (08:10)
[2021-05-27] MEDS: ENOXAPARIN 40 MG/0.4 ML SYRINGE SQ SCH (08:10)
[2021-05-27] MEDS: INSULIN ASPART (NovoLOG) 100 UNIT/ML VIAL SQ SCH ×3 (08:10→16:44)
[2021-05-27] MEDS ORDERED: SODIUM CHLORIDE 0.9% 1,000 ML IV SCH (10:30)
[2021-05-27 11:40] LABS: Glucose,Whole Blood 157 mg/dL (75-99)
--- NOTE | 2021-05-27 13:08 | P.PN ---
Subjective Progress Note Date: 05/27/21 Principal diagnosis: Hypoxia, shortness of breath This is a 70-year-old white female patient with past medical history of hypertension, diabetes mellitus type 2, extensive history of smoking, 1-2 packs a day for 52 years, severe aortic valve stenosis, CVA 7, with her last CVA in December 2020, obstructive sleep apnea on CPAP therapy at 9 cm of water, morbid obesity with a thickened weight loss over last several years and patient has lost a total of 300 pounds over a period of 15 years. Patient also has a history of cervical and colon cancer status post chemo and radiation currently in remission. Patient had a loop recorder placed in December 2020 following her most recent CVA. She usually follows with Dr. Blackmon from the [facility]. Patient denies any chronic lung issues. See a commercial marketing specialist, usually not oxygen dependent. Patient came in on 05/22/2021 for elective panniculus, patient has been having skin irritation rashes at her panniculus. Following the procedure on the second postoperative day she started experiencing increased shortness of breath and required placement on supplemental oxygen. She was placed on 4 L of oxygen pulse ox is 90%. Chest x-ray was completed, showing basilar atelectasis and possible associated effusions. Today's blood work shows normal white count of 8.5, hemoglobin is 11.8, yesterday's BMP shows sodium 136, potassium is 4.6, chloride is 102, CO2 is 29, BUN 22, creatinine 0.7. ProBNP came back at 730. Lung sounds reveal diminished breath sounds with some mild fine crackles at the left base. Patient is having incisional pain, and she states that could be limiting her deep breathing in addition to having abdominal binder. No wheezing, only occasional cough, and at times she is bringing up some rahman colored secretions. 05/25/2021, the patient is feeling better. No new complaints for now. She is using incentive spirometer. She is pulling approximately 2000 on her eye has. She was given a dose of Lasix yesterday and the patient was placed on oral Lasix today. Surgical wound site is dry clean and intact. No chest pain. No significant shortness of breath which is tolerating her diet. She is ambulating. No nausea or vomiting. No diarrhea or abdominal pain. No chest pain. She is utilizing her CPAP overnight. The drain output was noted. There is serosanguineous. Output from the left is 40 and on the rise and was 15. On today's evaluation of 05/26/2021, the patient states that her bleeding is stable and improved. She is on 2 L of oxygen by nasal cannula with a pulse ox of 91%. She had a bout of hypotension as she was getting up to go to the bathroom and this improved. Abdominal discomfort is also stable. SANTA drains are in place. Hemoglobin stable at 12.4. No fever. No chills. She is using incentive spirometer. She is also using the BiPAP overnight. On 05/27/2021 patient seen in follow-up medical surgical floor. Is currently on 2 L of oxygen pulse ox is 91%, hemodynamically she is been stable, breathing comfortably, she is afebrile, denies any cough, has any chest discomfort. CTA chest has been completed showing no evidence of pulmonary embolism, it did show possibility of mucous plugging in the lower lobe bronchi with associated a telectasis. Patient has a strong affective cough, she is working on incentive spirometer, she is achieving [id number] on it today. She is receiving breathing treatments. Patient is receiving pain medications for incisional pain, she has abdominal binder in place, abdominal incisions clean dry and intact, 2 SANTA drains in bilateral groins draining small amount of serosanguineous output. This had n o fever, no chills. Patient is on IV hydration with 0.9 normal saline at 75 ML per hour for about of hypertension, currently blood pressure is 102/57. Echocardiogram showed moderate concentric LVH, severe aortic stenosis, mild MR, mild to moderate mitral stenosis, mild TR. Objective - Vital Signs Vital signs: Vital Signs Temp 97.4 F L 05/27/21 07:36 Pulse 88 05/27/21 11:02 Resp 17 05/27/21 07:45 BP 102/57 05/27/21 07:36 Pulse Ox 91 L 05/27/21 07:36 Intake & Output 05/26/21 05/27/21 05/27/21 18:59 06:59 18:59 Output Total 58 115 50 Balance -58 -115 -50 Output: Drainage 58 115 50 Left Lower Abdomen 40 75 50 Right Lower Abdomen 18 40 Other: Voiding Method Toilet Toilet Toilet # Voids 2 2 # Bowel Movements 1 - Exam GENERAL EXAM: Alert, very pleasant, 70-year-old white female, on 2 L of oxygen currently, with pulse ox of 94%, in the recliner, comfortable in no apparent distress. HEAD: Normocephalic/atraumatic. EYES: Normal reaction of pupils, equal size. Conjunctiva pink, sclera white. NOSE: Clear with pink turbinates. THROAT: No erythema or exudates. NECK: No masses, no JVD, no thyroid enlargement, no adenopathy. CHEST: No chest wall deformity. Symmetrical expansion. LUNGS: Equal air entry with minimal fine rales at the left base CVS: Regular rate and rhythm, normal S1 and S2, no gallops, no murmurs, no rubs ABDOMEN: Soft, nontender. No hepatosplenomegaly, normal bowel sounds, no guarding or rigidity. Mid abdominal incision with the denny that are intact, covered with a dressing, and there is a transverse incision across the lower abdomen with denny that are intact. 2 SANTA drains one in each groin with minimal serosanguineous output, compressed and draining EXTREMITIES: No clubbing, no edema, no cyanosis, 2+ pulses and upper and lower extremities. MUSCULOSKELETAL: Muscle strength and tone normal. SPINE: No scoliosis or deformity SKIN: No rashes CENTRAL NERVOUS SYSTEM: Alert and oriented -3. No focal deficits, tone is normal in all 4 extremities. PSYCHIATRIC: Alert and oriented -3. Appropriate affect. Intact judgment and insight. - Labs CBC & Chem 7: 05/26/21 05:39 05/26/21 05:39 Labs: Abnormal Lab Results - Last 24 Hours (Table) 05/26/21 05/26/21 05/27/21 Range/Units 16:29 20:35 07:01 POC Glucose (mg/dL) 119 H 172 H 138 H (75-99) mg/dL 05/27/21 Range/Units 11:38 POC Glucose (mg/dL) 157 H (75-99) mg/dL Assessment and Plan Plan: Assessment: #1. Acute hypoxic respiratory failure related to postoperative atelectasis, and small pleural effusions #2. Panniculus, status post panniculectomy and repair of several incisional hernias postoperative day #4 #3. Severe aortic valve stenosis, and patient was recommended to undergo aortic valve replacement one year ago which she has been putting off due to COVID 19 pandemic. Echocardiogram showed severe aortic stenosis, with peak/mean gradient across the aortic valve of 61.84 mmHg/40.97 mmHg. Patient also has mild mitral regurgitation, and mild to moderate mitral stenosis. Showed EF of 55-60% #4. History of chronic tobacco dependence, patient carries 52 years of smoking, one or 2 packs daily, in remission for the past 2 weeks #5. Paroxysmal A. fib, on Coumadin #6. Status post loop recorder placement in December 2020 #7. History of CVA 7 #8. Diabetes because type II #9. Coronary artery disease with previous history of PCI and stenting #10. History of hypertension #11. History of colon cancer with history of colostomy and subsequent reversal #12. History of cervical cancer, currently in remission #13. History of super obesity, status post significant weight loss with a total of 390 pounds in last 15 years Plan: Continue weaning FiO2 Vital signs have been stable Obtain home oxygen assessment CTA chest have been reviewed No evidence of pulmonary embolism Bronchiectasis, mucus plugging in the right base Encourage deep breathing and coughing Continue bronchodilators From pulmonary perspective patient could be considered for discharge home if cleared by medicine and surgery She may require home oxygen She will need outpatient follow-up with Dr. Wright in the office in 7 days I performed a history & physical examination of the patient and discussed their management with my nurse practitioner, Anu Nieto. I reviewed the nurse practitioner's note and agree with the documented findings and plan of care. Lung sounds are positive for diminished breath sounds. The findings and the impression was discussed with the patient. I attest to the documentation by the nurse practitioner. Time with Patient: Less than 30
--- NOTE | 2021-05-27 13:35 | P.PN ---
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 She also has aortic stenosis, followed by show operations supervisor in [facility] and has a loop recorder. She now comes in for an elective abdominoplasty secondary to pannus and panniculitis, for which Dr. Sierra has performed the procedure 05/23/2021. She was seen postoperatively in a consult made to our service on 05/24/2021 for medical management. Interestingly, she had called bleed in January of this year, When seen, patient was a little bit hypoxemic, she has an abdominal binder, pulse ox in the 90% with 4 L L, patient does not have any chest pain, but she has a hard time breathing, related to the abdominal binder, patient denies any edema, no CHF the past, does not have any history of PE DVT, she is however Coumadin for cardiac reasons, consult also were made with Dr. Wright pulmonary, she is performing her incentive spirometry, with an capacity of 1500 L only. Hemoglobin is 11.8, blood sugars between 113-167, platelet count is normal, chest x-ray shows bilateral atelectasis, with possible pleural effusion, blunting of costophrenic angles. There is no fever currently, T-max 98.4, heart rate in the 70s, blood pressure 147/82, pulse oximetry currently are not 2 L cannula, 92 percent 05/25: Patient is found resting comfortably in chair in no acute distress. Patient continues to complain of shortness of breath especially with activity. She has been using her incentive spirometer at the bedside. SANTA drains remain in place 2. Patient remains afebrile, respirations 18, pulse rate 60, blood pressure 141/60, pulse ox seen 91% on 2 L of nasal cannula. Patient was given Lasix with positive results, we will continue with by mouth Lasix, and add DuoNeb to her regime. Surgical wound site is dry and clean and intact. 05/26: She was found sitting up at the site of the bed ready to get in the shower. Patient states that her breathing has improved since chest today. She does not have any shortness of breath with activity. She continues to use her incentive spirometer. SANTA drains remain in place 2. She is able to tolerate meals without any difficulties. Patient did have a bowel movement yesterday. She remains afebrile, rate 67, respirations 18, blood pressure 103/57, pulse ox a 91% on 2 L. 05/27: She states that her abdomen is sore. 2 SANTA Drains remain in place. She is complaining of sputum production. She is reaching 1800 on incentive spirometry. Sputum culture has been obtained. Pulse ox dropped down to 85% and home oxygen therapy will be arranged in order for her to manage COPD and her ADLs. Patient has been cleared for discharge by pulmonary medicine. Patient has been afe brile, heart rate 60s to 80s, blood pressure 118/71. Blood sugars are running between 108 and 172. CTA of the chest from May 26 revealed mucous plugging in the lower lobe bronchi with associated atelectasis correlate to exclude pneumonia. No evidence of pulmonary embolism. Echocardiogram from May 24 revealed EF of 55-60% with moderate concentric left ventricular hypertrophy, severe aortic stenosis, mild mitral regurgitation, mild to moderate mitral stenosis, mild tricuspid regurgitation. Review Of Systems: Constitutional: No fever, no chills, no night sweats. No weight change. No weakness, fatigue or lethargy. No daytime sleepiness. EENT: No headache. No blurred vision or double vision, no loss of vision. No loss of Hearing, no ringing in the ears, no dizziness. No nasal drainage or congestion. No epistaxis. No sore throat. Lungs: No shortness of breath, reports cough, reports sputum production. No wheezing. Cardiovascular: No chest pain, no lower extremity edema. No palpitations. No paroxysmal nocturnal dyspnea. No orthopnea. No lightheadedness or dizziness. No syncopal episodes. Abdominal: no abdominal discomfort. No nausea, vomiting. no diarrhea. No constipation. No bloody or tarry stools. no loss of appetite. Genitourinary: No dysuria, increased frequency, urgency. No urinary retention. Musculoskeletal: No myalgias. No muscle weakness, no gait dysfunction, no frequent falls. No back pain. No neck pain. Integumentary: No wounds, no lesions. No rash or pruritus. No unusual bruising. No change in hair or nails. Neurologic: No aphasia. No facial droop. No change in mentation. No head injury. No headache. No paralysis. No paresthesia. Psychiatric: No depression. No anxiety. No mood swings. Endocrine: No abnormal blood sugars. No weight change. No excessive sweating or thirst. Physical exam: General Appearance: Alert, cooperative, no distress, appears stated age. Neck HEENT: Supple, no lymphadenopathy, no thyroid enlargement, no carotid bruits. Lungs: Clear to auscultation , with a expiratory wheeze, no rhonchi, no deformity. Chest Wall: Chest wall normal expansion with deep inspiration no tenderness and no deformity was found on exam, no costochondral pain or discomfort. Heart: Regular rate and rhythm, S1, S2 normal, no murmur, rub or gallop. Back: Symmetric, no curvature, ROM normal, no CVA tenderness. Abdomen: Soft, tender, mid abdominal incision with denny intact surgical site dressing clean and dry and intact, transverse incision across the lower abdomen denny that are intact 2 SANTA drains on each side of groin with minimal serosanguineous output, compress and draining. no rebound or rigidity, no hepatosplenomegaly. Extremities: Extremities normal, atraumatic, no cyanosis or edema. Pulses: 2+ and symmetric. Skin: Skin color, texture, tugor normal, no rashes or lesions. Neurologic: Alert oriented x3 cranial nerves II through XII intact, no motor deficit, no abnormal balance or gait Assessment/plan: 1. History of super obesity, now has underlying panniculitis, requiring elective panniculectomy, performed by Dr. Sierra 05/22/2006/04/2021, patient is doing incentive spirometry, with abdominal binder, patient is having difficultie s in maximizing her incentive spirometry, she does have bilateral atelectasis, patient's encouraged to pursue further treatment for the atelectasis.. And PEEP proBNP 7:30, 2. Atelectasis, with acute hypoxemic respiratory failure, related to abdominal binder use, and atelectasis, monitor, continue on incentive spirometry, O2 supplementation, monitor chest x-ray, Dr. Wright to see the patient. Patient denies any history of PE or DVT in the past DuoNeb, continue with DuoNeb, 3. Mild pleural effusion, tea with by mouth Lasix 20 mg daily 2. History of long-term anticoagulation, secondary to atrial fibrillation, has 7 CVAs related to atrial fibrillation, no history of PE, 3. Diabetes mellitus type 2, on metformin and restart 4. CAD, with heart stents in the past, 5. History of colon cancer with history of colostomy with reversal 6. History of a loop recorder, pacemaker, most of the records were at [facility] 7 Long-term anticoagulation, we'll restart Coumadin once cleared by general surgery, to start within the next 24 hours 8. Possible COPD. Patient to follow-up as an outpatient. 9. Chronic hypoxic respiratory failure. Patient will require home oxygen in order to perform her ADLs and to manage her diagnosis of COPD. 10. DVT prophylaxis, IV Protonix 11. GI prophylaxis Lovenox 12. Valvular heart disease with severe aortic stenosis, mild mitral regurgitation, [id number] mitral stenosis, mild tricuspid regurgitation. Discharge plan: Home. Patient will follow-up with Dr. Zhang Holguin in the outpatient setting. Impression and plan of care have been directed as dictated by the signing physician. Thania De La Cruz nurse practitioner acting as scribe for signing physician. Objective - Vital Signs Vital signs: Vital Signs Temp 97.4 F L 05/27/21 07:36 Pulse 81 05/27/21 07:36 Resp 17 05/27/21 07:45 BP 102/57 05/27/21 07:36 Pulse Ox 91 L 05/27/21 07:36 Intake & Output 05/26/21 05/27/21 05/27/21 18:59 06:59 18:59 Output Total 58 115 Balance -58 -115 Output: Drainage 58 115 Left Lower Abdomen 40 75 Right Lower Abdomen 18 40 Other: Voiding Method Toilet Toilet Toilet # Voids 2 2 # Bowel Movements 1 - Labs CBC & Chem 7: 05/26/21 05:39 05/26/21 05:39 Labs: Abnormal Lab Results - Last 24 Hours (Table) 05/26/21 05/26/21 05/26/21 Range/Units 05:39 11:41 16:29 Sodium 136 L (137-145) mmol/L BUN 18 H (7-17) mg/dL Glucose 107 H (74-99) mg/dL POC Glucose (mg/dL) 125 H 119 H (75-99) mg/dL 05/26/21 05/27/21 Range/Units 20:35 07:01 Sodium (137-145) mmol/L BUN (7-17) mg/dL Glucose (74-99) mg/dL POC Glucose (mg/dL) 172 H 138 H (75-99) mg/dL
--- NOTE | 2021-05-27 14:55 | P.DS ---
Providers Date of admission: 05/25/21 15:47 Expected date of discharge: 05/27/21 Attending physician: Alvin Sierra Consults: 05/23/21 14:22 Consult Physician Routine Consulting Provider: Amanda Crowley Consult Reason/Comments: medical management Do you want consulting provider notified?: Yes 05/24/21 10:47 Consult Physician Routine Consulting Provider: Lucas Wright Consult Reason/Comments: hypoxia Do you want consulting provider notified?: Yes Primary care physician: Zhang Holguin [place] [facility] Course: Discharge diagnosis 1. Panniculus and incisional hernias. Patient status post panniculectomy and repair of several incisional hernias 2. Atelectasis 3. Acute hypoxic respiratory failure secondary to postoperative atelectasis and small pleural effusions Hospital course This is a 70-year-old female who presents today for panniculus. Patient has had chronic issues with skin irritation rashes at her panniculus. Patient is status post panniculectomy and repair of several incisional hernias. Patient reports that her pain is controlled. She is tolerating diet. She is passing gas and having bowel movements. She's been followed by medical service and pulmonary service. Her oxygen saturation had been low she is requiring home O2. Her oxygen saturation does drop with ambulating. Home O2 is being arranged. She did have some episodes of hypotension. Medicine service has adjusted her cardiac meds. Patient has been cleared by pulmonary and medical service for discharge. Surgically she is stable for discharge. She's afebrile. Please refer to chart for any further details. Physician Pets Salesperson note has been reviewed by physician. Signing provider agrees with the documented findings, assessment, and plan of care. Patient Condition at Discharge: Stable Plan - Discharge Summary Discharge Rx Participant: Yes New Discharge Prescriptions: New HYDROcodone/APAP 7.5-325MG [[place] 7.5-325] 1 tab PO Q6HR PRN 3 Days #12 tab PRN Reason: Pain Docusate [Colace] 100 mg PO BID #30 capsule Continue EPINEPHrine (Auto Inject) [Epipen] 0.3 mg IM ONCE PRN PRN Reason: Anaphylaxis Warfarin [Coumadin] 5 mg PO THFRSA Gabapentin [Neurontin] 100 mg PO BID Fluticasone Nasal [place] [Flonase Nasal [place]] 2 spr EA NOSTRIL DAILY metFORMIN HCL 1,000 mg PO BID Pramipexole [Mirapex] 0.125 mg PO DAILY Cholecalciferol [Vitamin D3 (25 Mcg = 1000 Iu)] 25 mcg PO DAILY Warfarin [Coumadin] 10 mg PO SUMOTUWE Sertraline [Zoloft] 50 mg PO QAM Atorvastatin [Lipitor] 40 mg PO HS Omeprazole 20 mg PO DAILY Nystatin 100,000 Unit/gm Oint [Mycostatin Oint] 1 applic TOPICAL DIRECTED Changed Metoprolol Tartrate 12.5 mg PO BID #0 Discontinued Insulin Glargine [Lantus] 35 unit SQ TID Discharge Medication List Atorvastatin [Lipitor] 40 mg PO HS 05/16/21 [History] Cholecalciferol [Vitamin D3 (25 Mcg = 1000 Iu)] 25 mcg PO DAILY 05/16/21 [History] EPINEPHrine (Auto Inject) [Epipen] 0.3 mg IM ONCE PRN 05/16/21 [History] Fluticasone Nasal [place] [Flonase Nasal [place]] 2 spr EA NOSTRIL DAILY 05/16/21 [History] Gabapentin [Neurontin] 100 mg PO BID 05/16/21 [History] Nystatin 100,000 Unit/gm Oint [Mycostatin Oint] 1 applic TOPICAL DIRECTED 05/16/21 [History] Omeprazole 20 mg PO DAILY 05/16/21 [History] Pramipexole [Mirapex] 0.125 mg PO DAILY 05/16/21 [History] Sertraline [Zoloft] 50 mg PO QAM 05/16/21 [History] Warfarin [Coumadin] 5 mg PO THFRSA 05/16/21 [History] Warfarin [Coumadin] 10 mg PO SUMOTUWE 05/16/21 [History] metFORMIN HCL 1,000 mg PO BID 05/16/21 [History] Docusate [Colace] 100 mg PO BID #30 capsule 05/24/21 [Rx] HYDROcodone/APAP 7.5-325MG [[place] 7.5-325] 1 tab PO Q6HR PRN 3 Days #12 tab 05/24/21 [Rx] Metoprolol Tartrate 12.5 mg PO BID #0 05/27/21 [Rx] Follow up Appointment(s)/Referral(s): Amanda Crowley MD [STAFF PHYSICIAN] - 1 Week [place] [NON-STAFF] - (*Please call [facility] to arrange delivery of your oxygen concentrator today*) Lucas Wright MD [STAFF PHYSICIAN] - 1 Week Alvin Sierra MD [STAFF PHYSICIAN] - 1 Week Activity/Diet/Wound Care/Special Instructions: Hold Insulin until patient follows up with Dr. Crowley. Ashly can be reached by contacting [phone] or [phone]. No driving while taking [place] No lifting over 10 pounds You may shower. No soaking or tub baths for 2 weeks Very light activity until you are reevaluated at your follow up appointment with your surgeon Keep a log of SANTA drain output and bring with you to your follow-up appointment Milk/strip drains 2-3 times a day Discharge Disposition: HOME WITH HOME HEALTH SERVICES
[2021-05-27 15:19] VITALS: BP 118/71; TEMP 98.4
[2021-05-27 15:58] VITALS: PULSE 80
[2021-05-27 16:42] LABS: Glucose,Whole Blood 108 mg/dL (75-99)
[2021-05-27] MEDS ORDERED: METOPROLOL TARTRATE 12.5 MG TAB PO SCH (21:00)
== END 2021-05-27 18:35 | disposition home health service (06) | DRG 570 ==
LOC: OR 10:53 → 4SSUR 17:14 → OR 05-23 15:19 → OBSVTOIN 05-25 15:47
PROVIDERS: ADMIT Surgery; ATTEND Surgery
DX: M79.3 Panniculitis, unspecified (principal); J96.21 Acute and chronic respiratory failure with hypoxia; J98.11 Atelectasis; E11.42 Type 2 diabetes mellitus with diabetic polyneuropathy; Z79.4 Long term (current) use of insulin; K43.2 Incisional hernia without obstruction or gangrene; E78.5 Hyperlipidemia, unspecified; F17.210 Nicotine dependence, cigarettes, uncomplicated; G25.81 Restless legs syndrome; I08.3 Combined rheumatic disorders of mitral, aortic and tricuspid valves; I10 Essential (primary) hypertension; M21.372 Foot drop, left foot; I95.9 Hypotension, unspecified; I25.10 Atherosclerotic heart disease of native coronary artery without angina pectoris; I48.0 Paroxysmal atrial fibrillation; I69.398 Other sequelae of cerebral infarction; J44.9 Chronic obstructive pulmonary disease, unspecified; Z79.01 Long term (current) use of anticoagulants; Z79.899 Other long term (current) drug therapy; Z80.8 Family history of malignant neoplasm of other organs or systems; Z82.49 Family history of ischemic heart disease and other diseases of the circulatory system; Z83.3 Family history of diabetes mellitus; Z85.038 Personal history of other malignant neoplasm of large intestine; Z85.41 Personal history of malignant neoplasm of cervix uteri; Z90.710 Acquired absence of both cervix and uterus; Z92.21 Personal history of antineoplastic chemotherapy; Z92.3 Personal history of irradiation; Z95.5 Presence of coronary angioplasty implant and graft; Z96.642 Presence of left artificial hip joint; Z98.890 Other specified postprocedural states; Z98.42 Cataract extraction status, left eye; Z98.41 Cataract extraction status, right eye; Z88.0 Allergy status to penicillin; Z88.1 Allergy status to other antibiotic agents; Z91.030 Bee allergy status; Z91.040 Latex allergy status
CPT/HCPCS: 64999; 71045; 71275; 80048; 80053; 83880; 84439; 84443; 85025; 85610; 87070; 87205; 93306; 94640; 94760

== ENCOUNTER 2021-10-17 16:42 | Inpatient (IN) | payer MEDICARE ==
[2021-10-17 16:49] LABS: Glucose,Whole Blood 114 mg/dL (75-99)
[2021-10-17] MEDS ORDERED: SODIUM CHLORIDE 0.9% 500 ML 500 ML IV STA (16:58)
--- NOTE | 2021-10-17 17:01 | ED ---
General Adult HPI - General Stated complaint: Stroke Time Seen by Provider: 10/17/21 16:44 - History of Present Illness Initial comments: Dictation was produced using Loand[employer] dictation software. please excuse any grammatical, word or spelling errors. Chief Complaint: 71-year-old female with extensive history of CVA presents to the emergency department for strokelike symptoms History of Present Illness: 71-year-old female she has past medical history of stroke with residual deficits. She states that she woke this morning with wors ening stroke symptoms. States she had 7 strokes in the past. Her residual deficits are left lower extremity weakness, dysarthria. This morning she woke up had worsening dysarthria numbness to her left upper arm and left facial droop. Patient takes Coumadin. The ROS documented in this emergency department record has been reviewed and confirmed by me. Those systems with pertinent positive or negative responses have been documented in the HPI. All other systems are other negative and/or noncontributory. PHYSICAL EXAM: General Impression: Alert and oriented x3, not in acute distress HEENT: Normocephalic atraumatic, extra-ocular movements intact, pupils equal and reactive to light bilaterally, mucous membranes moist. Cardiovascular: Heart regular rate and rhythm Chest: Able to complete full sentences, no retractions, no tachypnea Abdomen: abdomen soft, non-tender, non-distended, no organomegaly Musculoskeletal: Pulses present and equal in all extremities, no peripheral edema Motor: no focal deficits noted Neurological: NIH of 5, for left lower extremity drift, bilateral upper e xtremity drift and left facial droop and dysarthria Skin: Intact with no visualized rashes Psych: Normal affect and mood ED course: 71-year-old female has extensive history of CVA. She takes anticoa gulation medications. Patient woke up with new stroke symptoms outside of her residual stroke deficits. Patient woke up with the symptoms. She is outside the window for thrombolytics and is on anticoagulation medication. Laboratory evaluation obtained. CBC, coag panel, metabolic panel is within acceptable limits. A pelvis x-ray, shoulder x-ray chest x-ray negative. No acute traumatic issues or any acute findings. CT brain and CT angiogram of the head and neck shows no abnormalities. No evidence of large vessel occlusion and no signs of hemorrhagic stroke. Patient was in the emergency department for approximately 2 hours patient is reevaluated bedside at 7:15. She said her symptoms are significantly improved. She is resting comfortably playing games on her tablet. She given aspirin. She'll be admitted to Dr. Crowley. Neurology on consult EKG interpretation: Ventricular rate 60, normal sinus rhythm,. Interval 140, QRS 80, QTc 440. No AR prolongation, no QTC prolongation, no ST or T-wave changes noted. . Overall, this EKG is unremarkable - Related Data Home Medications Medication Instructions Recorded Confirmed Warfarin [Coumadin] 5 mg PO HS 05/16/21 10/17/21 metFORMIN HCL [Glucophage] 1,000 mg PO BID 05/16/21 10/17/21 Albuterol Inhaler [Ventolin Hfa 2 puff INHALATION RT-QID PRN 10/17/21 10/17/21 Inhaler] Albuterol Nebulized [Ventolin 2.5 mg INHALATION RT-QID PRN 10/17/21 10/17/21 Nebulized] Multivit-Min/Iron/Folic/Lutein 1 tab PO BID 10/17/21 10/17/21 [Centrum Silver Women Tablet] Sertraline (Unknown Dose) 1 dose PO DAILY 10/17/21 10/17/21 Allergies Allergy/AdvReac Type Severity Reaction Status Date / Time bee venom protein (honey bee) Allergy Anaphylaxis Verified 10/17/21 18:47 cephalexin [From Keflex] Allergy Rash/Hives Verified 10/17/21 18:47 latex Allergy Rash/Hives Verified 10/17/21 18:47 Penicillins Allergy Swelling Verified 10/17/21 18:47 Sulfa (Sulfonamide Allergy Unknown Verified 10/17/21 18:47 Antibiotics) Review of Systems ROS Statement: Those systems with pertinent positive or pertinent negative responses have been documented in the HPI. ROS Other: All systems not noted in ROS Statement are negative. Past Medical History Past Medical History: Cancer, CVA/TIA, Diabetes Mellitus, GERD/Reflux, Hyperli pidemia, Hypertension, Sleep Apnea/CPAP/BIPAP Additional Past Medical History / Comment(s): states 7 strokes, states left foot drop, and wears an AFO, hx of cervical CA, and colon CA 2002, had chemo and radiation, restless leg, neuropathy tr legs, rash under abdominal flap, states has had weight loss, at one time weighed 545lbs History of Any Multi-Drug Resistant Organisms: None Reported Past Surgical History: Bowel Resection, Heart Catheterization With Stent, Hernia Repair, Hysterectomy, Joint Replacement, Pacemaker Additional Past Surgical History / Comment(s): hx of colostomy, and then rev ersal, tr cataract sx, left hip replaced, states had 5 hernia repairs with mesh Past Anesthesia/Blood Transfusion Reactions: No Reported Reaction Date of Last Stent Placement:: 2013 Type of Cardiac Device: Permanent Pacemaker Device Placement Date:: 12/23/20 Past Psychological History: Depression Smoking Status: Former smoker Past Alcohol Use History: None Reported Additional Past Alcohol Use History / Comment(s): smokes 1ppd, has smoked up to 3ppd in past Past Drug Use History: Marijuana Additional Drug Use History / Comment(s): occasional use, instructed to hold 24 hrs - Past Family History Brother(s) Family Medical History: Cancer Sister(s) History Unknown: Yes (Crohn's) Daughter(s) History Unknown: Yes (Cholesteatoma) Son(s) Family Medical History: No Reported History Father Family Medical History: Cancer (Skin cancer), Coronary Artery Disease (CAD), Di abetes Mellitus Mother Family Medical History: Coronary Artery Disease (CAD), CVA/TIA, Diabetes Mellitus Course Vital Signs 10/17/21 10/17/21 10/17/21 16:45 17:00 17:15 Temperature 98.1 F Pulse Rate 68 61 66 Respiratory 16 16 16 Rate Blood Pressure 166/84 142/91 146/74 O2 Sat by Pulse 94 L 94 L 97 Oximetry 10/17/21 10/17/21 10/17/21 17:25 17:30 17:45 Temperature Pulse Rate 66 64 Respiratory 16 16 Rate Blood Pressure 136/65 152/72 O2 Sat by Pulse 89 L 95 96 Oximetry Medical Decision Making - Lab Data Result diagrams: 10/17/21 16:58 10/17/21 16:58 Lab Results 10/17/21 10/17/21 10/17/21 Range/Units 16:47 16:58 16:58 WBC 9.2 (3.8-10.6) k/uL RBC 4.29 (3.80-5.40) m/uL Hgb 14.2 (11.4-16.0) gm/dL Hct 41.8 (34.0-46.0) % MCV 97.5 (80.0-100.0) fL MCH 33.1 (25.0-35.0) pg MCHC 33.9 (31.0-37.0) g/dL RDW 14.7 (11.5-15.5) % Plt Count 278 (150-450) k/uL MPV 8.0 Neutrophils % 57 % Lymphocytes % 33 % Monocytes % 5 % Eosinophils % 2 % Basophils % 1 % Neutrophils # 5.3 (1.3-7.7) k/uL Lymphocytes # 3.0 (1.0-4.8) k/uL Monocytes # 0.5 (0-1.0) k/uL Eosinophils # 0.1 (0-0.7) k/uL Basophils # 0.1 (0-0.2) k/uL PT 10.4 (9.0-12.0) sec INR 1.0 (<1.2) APTT 24.7 (22.0-30.0) sec Sodium (137-145) mmol/L Potassium (3.5-5.1) mmol/L Chloride (98-107) mmol/L Carbon Dioxide (22-30) mmol/L Anion Gap mmol/L BUN (7-17) mg/dL Creatinine (0.52-1.04) mg/dL Est GFR (CKD-EPI)AfAm (>60 ml/min/1.73 sqM) Est GFR (CKD-EPI)NonAf (>60 ml/min/1.73 sqM) Glucose (74-99) mg/dL POC Glucose (mg/dL) 114 H (75-99) mg/dL POC Glu Director Banking ID Estela Urrutia Calcium (8.4-10.2) mg/dL Total Bilirubin (0.2-1.3) mg/dL AST (14-36) U/L ALT (4-34) U/L Alkaline Phosphatase (38-126) U/L Troponin I (0.000-0.034) ng/mL Total Protein (6.3-8.2) g/dL Albumin (3.5-5.0) g/dL 10/17/21 10/17/21 Range/Units 16:58 16:58 WBC (3.8-10.6) k/uL RBC (3.80-5.40) m/uL Hgb (11.4-16.0) gm/dL Hct (34.0-46.0) % MCV (80.0-100.0) fL MCH (25.0-35.0) pg MCHC (31.0-37.0) g/dL RDW (11.5-15.5) % Plt Count (150-450) k/uL MPV Neutrophils % % Lymphocytes % % Monocytes % % Eosinophils % % Basophils % % Neutrophils # (1.3-7.7) k/uL Lymphocytes # (1.0-4.8) k/uL Monocytes # (0-1.0) k/uL Eosinophils # (0-0.7) k/uL Basophils # (0-0.2) k/uL PT (9.0-12.0) sec INR (<1.2) APTT (22.0-30.0) sec Sodium 139 (137-145) mmol/L Potassium 4.0 (3.5-5.1) mmol/L Chloride 109 H (98-107) mmol/L Carbon Dioxide 21 L (22-30) mmol/L Anion Gap 9 mmol/L BUN 22 H (7-17) mg/dL Creatinine 0.63 (0.52-1.04) mg/dL Est GFR (CKD-EPI)AfAm >90 (>60 ml/min/1.73 sqM) Est GFR (CKD-EPI)NonAf >90 (>60 ml/min/1.73 sqM) Glucose 127 H (74-99) mg/dL POC Glucose (mg/dL) (75-99) mg/dL POC Glu Director Banking ID Calcium 9.4 (8.4-10.2) mg/dL Total Bilirubin 0.6 (0.2-1.3) mg/dL AST 32 (14-36) U/L ALT 39 H (4-34) U/L Alkaline Phosphatase 144 H (38-126) U/L Troponin I <0.012 (0.000-0.034) ng/mL Total Protein 7.3 (6.3-8.2) g/dL Albumin 4.1 (3.5-5.0) g/dL Critical Care Time Critical Care Time: Yes Total Critical Care Time: 33 Disposition Clinical Impression: Cerebrovascular accident (CVA) Disposition: ADMITTED IP TO THIS HOSP Condition: Fair Referrals: Zhang Holguin MD [Primary Care Provider] - 1-2 days
[2021-10-17 17:07] LABS: Basophils # (A) 0.1 k/uL (0-0.2); Basophils % (A) 1 %; Eosinophils # (A) 0.1 k/uL (0-0.7); Eosinophils % (A) 2 %; HCT 41.8 % (34.0-46.0); HGB 14.2 gm/dL (11.4-16.0); Lymphocytes % (A) 33 %; MCH 33.1 pg (25.0-35.0); MCHC 33.9 g/dL (31.0-37.0); MCV 97.5 fL (80.0-100.0); Monocytes # (A) 0.5 k/uL (0-1.0); Monocytes % (A) 5 %; Neutrophils # (A) 5.3 k/uL (1.3-7.7); Neutrophils % (A) 57 %; Platelet Count 278 k/uL (150-450); RBC 4.29 m/uL (3.80-5.40); RDW 14.7 % (11.5-15.5); WBC 9.2 k/uL (3.8-10.6)
[2021-10-17 17:18] LABS: Partial Thromboplastin Time 24.7 sec (22.0-30.0); Prothrombin Time 10.4 sec (9.0-12.0)
[2021-10-17 17:26] LABS: ALT 39 U/L (4-34); AST 32 U/L (14-36); African American GFR (CKD) >90 (>60 ml/min/1.73 sqM); Albumin 4.1 g/dL (3.5-5.0); Alkaline Phosphatase 144 U/L (38-126); Anion Gap 9 mmol/L; Blood Urea Nitrogen 22 mg/dL (7-17); Calcium 9.4 mg/dL (8.4-10.2); Carbon Dioxide 21 mmol/L (22-30); Chloride 109 mmol/L (98-107); Glucose 127 mg/dL (74-99); Non-African American GFR(CKD) >90 (>60 ml/min/1.73 sqM); Sodium 139 mmol/L (137-145); Total Bilirubin 0.6 mg/dL (0.2-1.3); Total Protein 7.3 g/dL (6.3-8.2)
--- NOTE | 2021-10-17 17:31 | CT ---
EXAMINATION: CT brain wo con for TPA DATE AND TIME: 10/17/2021 5:17 PM CLINICAL INDICATION: Neuro deficit, acute, stroke suspected TECHNIQUE: Standard departmental protocol. Dose: 1102.8 mGy-cm COMPARISON: None. FINDINGS: The calvarium is intact. There is no intracranial hemorrhage. There is no intracranial mass or mass effect. No definite new intra-axial or extra-axial attenuation defect. The paranasal sinuses, middle ear cavities, and mastoid sinus air cells are clear. The orbits are unremarkable. IMPRESSION: NO ACUTE PROCESS.
--- NOTE | 2021-10-17 17:41 | CT ---
EXAMINATION TYPE: CT angio head neck DATE OF EXAM: 10/17/2021 HISTORY: Neuro deficits. COMPARISON: CT head without contrast same day CT DLP: 591.9 mGycm. Automated Exposure Control for Dose Reduction was Utilized. TECHNIQUE: CTA scan of the neck is performed with IV Contrast, patient injected with 65ml mL of Isov ue 370, axial images are obtained, coronal and sagittal reformatted images are reviewed. 3D reconstru cted images are created on an independent workstation and reviewed. FINDINGS: CTA NECK: Carotid and vertebral arterial systems of the neck: Bilaterally widely patent without signi ficant stenosis, dissection, filling defect, or other abnormality. NASCET criteria was used in interpretation of this exam? Other: No incidental extravascular acute abnormalities. Emphysematous changes seen in the lung apices . CTA HEAD: Intracranial anterior and posterior arterial systems: Diffusely widely patent, without aneu rysm, focal stenosis, filling defect, or other abnormality. Other: No incidental intracranial abdomen. IMPRESSION: NO ACUTE PROCESS.
[2021-10-17] MEDS ORDERED: oxyCODONE-APAP 5-325MG 1 EACH TAB PO STA (17:43)
--- NOTE | 2021-10-17 19:00 | XR ---
EXAMINATION: XR chest 2V DATE AND TIME: 10/17/2021 6:12 PM CLINICAL INDICATION: PHH; altered mental status TECHNIQUE: AP and lateral views COMPARISON: 05/24/2021 FINDINGS: The overlying soft tissues are prominent. The lungs are negative for focal consolidative opacities. However, there is evidence of mild silhouet ting of the pulmonary vasculature bilaterally and symmetrically, by a fine reticular pattern of incre ased attenuation, a subtle finding which may simply reflect a prominent overlying soft tissues but co uld correlate with a clinical diagnosis of mild interstitial phase pulmonary edema. The pleural spaces are negative. The cardiac silhouette is not enlarged. The remainder of the mediastinal silhouette is unremarkable. The skeletal structures and soft tissues are negative for acute findings. IMPRESSION: Suspect mild pulmonary edema.
--- NOTE | 2021-10-17 19:02 | XR ---
PROCEDURE: XR shoulder complete LT - 3V DATE AND TIME: 10/17/2021 6:11 PM CLINICAL INDICATION: Pain after fall TECHNIQUE: Department protocol COMPARISON: None FINDINGS: There is no fracture or malalignment. The soft tissues are unremarkable. IMPRESSION: NO ACUTE PROCESS.
--- NOTE | 2021-10-17 19:04 | XR ---
PROCEDURE: XR Hip Bilateral and AP pelvis - 5V DATE AND TIME: 10/17/2021 6:11 PM CLINICAL INDICATION: Pain after fall TECHNIQUE: Department protocol COMPARISON: None FINDINGS: There is no fracture or malalignment. Left hip prosthesis is intact. The soft tissues are u nremarkable. IMPRESSION: NO ACUTE PROCESS.
[2021-10-17] MEDS ORDERED: ASPIRIN 81 MG PO STA (19:05)
[2021-10-17] MEDS ORDERED: NALOXONE 0.4 MG/ML 1 ML VIAL IV PRN (19:14)
[2021-10-17] MEDS: SODIUM CHLORIDE 0.9% 1,000 ML IV SCH (19:19)
[2021-10-17 22:43] LABS: Glucose,Whole Blood 92 mg/dL (75-99)
[2021-10-18] MEDS: SODIUM CHLORIDE 0.9% 1,000 ML IV SCH (00:21)
[2021-10-18 06:07] LABS: Glucose,Whole Blood 109 mg/dL (75-99)
[2021-10-18] MEDS ORDERED: ALBUTEROL NEBULIZED 2.5 MG/3 ML INHALATION PRN (10:31)
[2021-10-18] MEDS ORDERED: HYDROmorphone 0.5 MG/0.5 ML SYRINGE IVP PRN (10:39)
[2021-10-18 11:19] LABS: Prothrombin Time 10.3 sec (9.0-12.0)
[2021-10-18] MEDS ORDERED: ASPIRIN 325 MG TAB PO SCH (11:45)
--- NOTE | 2021-10-18 11:50 | P.HPIM ---
History of Present Illness H&P Date: 10/18/21 Chief Complaint: Dysarthria, headache, right side, left upper extremity weakness upon awaken This 62-year-old pleasant female, with known history of cold colon cancer 2002, requiring the chemoradiation, aortic stenosis and paroxysmal atrial fibrillation also with history of significant weight loss, at one time she weighed 545 pounds, elective abdominoplasty secondary to pannus and panniculitis, for which Dr. Sierra has performed the procedure 05/23/2021. 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 She also has aortic stenosis, followed by grader tender in [facility] and has a loop recorder. Now seeing cardiology Dr. Houston She presents emergency room, from the office of Dr. Houston, after she had fallen twice in 1 week, her last fall was one day prior to admission. Her PCP is recommended that she see her grader tender, for which she presented to the cardiology office with now new strokelike symptoms, for which she had awakened with severe headache right side, dysarthria, left upper extremity weakness and left facial droop, worsening numbness to the left arm,. She presents with acute CVA, this would be her eighth CVA. She cannot recall any recent medication changes, she is on Coumadin, and with her INR of 1.0, she is subtherapeutic upon ER admission. She takes 5 mg daily, she is unaware whether the newer factor X a inhibition is appropriate for her, or was tried at all. She had no recollection of any HERMINIO done at all, and does not have any cardiac valve replacement In the emergency room, she had CTA of the neck, shows no carotid stenosis, no dissection or aneurysm, or vertebral in ICA system, CT of the brain without contrast for TPA evaluation, shows no acute process, skeletal survey x-ray the patient has fall, falling, there is no acute fractures in the left shoulder, and bilateral hips chest x-ray shows suspected mild pulmonary edema. EKG, shows normal sinus rhythm, without acute ST-T wave changes. Labs shows INR of 1.0, liver function tests is okay except for alkaline phosphatase slightly elevated, ALT 39, blood sugar is 92-109, creatinine 0.63 Hemoglobin 14.2, WBC count normal at 9. Patient is admitted for acute CVA, with a simple left upper extremity weakness, dysarthria, facial droop, with NIH score of 5, not a candidate for TPA as she is outside of the window for TPA regimen. Consult with neurology, and cardiology. Start aspirin, and statins Review of Systems Constitutional: Reports as per HPI, Denies anorexia, Denies chills, Denies chronic headaches, Denies chronic pain, Denies daytime sleepiness, Denies fatigu e, Denies fever, Denies lethargy, Denies malaise, Denies night sweats, Denies poor appetite, Denies sweats, Denies weakness, Denies weight gain, Denies weight loss Ears, nose, mouth and throat: Reports as per HPI Cardiovascular: Reports as per HPI, Reports decreased exercise tolerance, Reports syncope, Denies dyspnea on exertion, Denies leg edema, Denies lightheadedness, Denies palpitations, Denies paroxysmal nocturnal dyspnea, Denies shortness of breath Respiratory: Denies as per HPI, Denies congestion, Denies cough, Denies cough with sputum, Denies dyspnea, Denies excessive sputum, Denies hemoptysis, Denies home oxygen, Denies pain, Denies pain on inspiration, Denies pleurisy, Denies respiratory infections, Denies sleep apnea, Denies snoring, Denies wheezing Gastrointestinal: Reports as per HPI, Denies abdominal pain, Denies belching, Denies bloating, Denies BRBPR, Denies change in bowel habits, Denies coffee ground emesis, Denies constipation, Denies diarrhea, Denies dyspepsia, Denies early satiety, Denies excessive gas, Denies heartburn, Denies hematemesis, Denies hematochezia, Denies indigestion, Denies jaundice, Denies lactose intolerance, Denies loss of appetite, Denies melena, Denies nausea, Denies vomiting Genitourinary: Reports as per HPI Menstruation: Reports as per HPI Musculoskeletal: Reports as per HPI, Reports frequent falls, Reports gait dysfunction, Reports limitation of motion Integumentary: Reports as per HPI Neurological: Reports as per HPI, Reports change in speech, Reports gait dysfunction, Reports headaches, Reports lack of coordination, Reports motor disturbance, Reports numbness, Reports syncope, Reports weakness, Denies change in mentation, Denies confusion, Denies convulsions, Denies double vision, Denies seizures, Denies tremors, Denies vertigo Psychiatric: Reports as per HPI Endocrine: Reports as per HPI Hematologic/Lymphatic: Reports as per HPI, Denies easy bleeding, Denies easy bruising, Denies lymphadenopathy, Denies lymphedema, Denies thrombophilia Allergic/Immunologic: Reports as per HPI, Denies allergic rhinitis, Denies anaphylaxis, Denies angioedema, Denies gluten intolerance, Denies persistent infections, Denies seasonal allergies, Denies urticaria, Denies wheezing Past Medical History Past Medical History: Cancer, CVA/TIA, Diabetes Mellitus, GERD/Reflux, Hy perlipidemia, Hypertension, Sleep Apnea/CPAP/BIPAP Additional Past Medical History / Comment(s): states 7 strokes, states left foot drop, and wears an AFO, hx of cervical CA, and colon CA 2002, had chemo and radiation, restless leg, neuropathy tr legs, rash under abdominal flap, states has had weight loss, at one time weighed 545lbs History of Any Multi-Drug Resistant Organisms: None Reported Past Surgical History: Bowel Resection, Heart Catheterization With Stent, Hernia Repair, Hysterectomy, Joint Replacement, Pacemaker Additional Past Surgical History / Comment(s): hx of colostomy, and then reversal, tr cataract sx, left hip replaced, states had 5 hernia repairs with mesh Past Anesthesia/Blood Transfusion Reactions: No Reported Reaction Date of Last Stent Placement:: 2013 Type of Cardiac Device: Permanent Pacemaker Device Placement Date:: 12/23/20 Past Psychological History: Depression Smoking Status: Former smoker Past Alcohol Use History: None Reported Additional Past Alcohol Use History / Comment(s): smokes 1ppd, has smoked up to 3ppd in past Past Drug Use History: Marijuana Additional Drug Use History / Comment(s): occasional use, instructed to hold 24 hrs - Past Family History Brother(s) Family Medical History: Cancer (thyroid) Sister(s) History Unknown: Yes Daughter(s) History Unknown: Yes Son(s) Family Medical History: No Reported History Father Family Medical History: Cancer, Coronary Artery Disease (CAD), Diabetes Mellitus Mother Family Medical History: Coronary Artery Disease (CAD), CVA/TIA, Diabetes Mellitus Medications and Allergies Home Medications Medication Instructions Recorded Confirmed Type Warfarin [Coumadin] 5 mg PO HS 05/16/21 10/17/21 History metFORMIN HCL [Glucophage] 1,000 mg PO BID 05/16/21 10/17/21 History Albuterol Inhaler [Ventolin Hfa 2 puff INHALATION RT-QID PRN 10/17/21 10/17/21 History Inhaler] Albuterol Nebulized [Ventolin 2.5 mg INHALATION RT-QID PRN 10/17/21 10/17/21 History Nebulized] Multivit-Min/Iron/Folic/Lutein 1 tab PO BID 10/17/21 10/17/21 History [Centrum Silver Women Tablet] Sertraline [Zoloft] 50 mg PO DAILY 10/18/21 10/18/21 History Allergies Allergy/AdvReac Type Severity Reaction Status Date / Time bee venom protein (honey bee) Allergy Anaphylaxis Verified 10/17/21 18:47 cephalexin [From Keflex] Allergy Rash/Hives Verified 10/17/21 18:47 latex Allergy Rash/Hives Verified 10/17/21 18:47 Penicillins Allergy Swelling Verified 10/17/21 18:47 Sulfa (Sulfonamide Allergy Unknown Verified 10/17/21 18:47 Antibiotics) Physical Exam Vitals: Vital Signs Temp Pulse Pulse Resp BP BP Pulse Ox 10/18/21 08:00 98 F 60 18 120/68 96 10/18/21 04:00 97.7 F 61 18 135/72 93 L 10/18/21 02:00 60 18 10/17/21 23:00 97.6 F 60 18 161/84 96 10/17/21 22:40 97.6 F 18 161/84 96 10/17/21 22:17 56 L 20 168/85 95 10/17/21 20:30 61 20 142/76 96 10/17/21 19:15 58 L 20 140/85 96 10/17/21 18:45 98.0 F 60 20 152/71 97 10/17/21 18:15 98.0 F 62 20 150/72 96 10/17/21 17:45 64 16 152/72 96 10/17/21 17:30 66 16 136/65 95 10/17/21 17:25 89 L 10/17/21 17:15 66 16 146/74 97 10/17/21 17:00 61 16 142/91 94 L 10/17/21 16:45 98.1 F 68 16 166/84 94 L Intake and Output 10/17/21 10/18/21 10/18/21 22:59 06:59 14:59 Intake Total 221 140 Output Total 750 Balance 221 -610 Intake: Intake, IV Titration 140 Amount Sodium Chloride 0.9% 1, 140 000 ml @ 20 mls/hr IV . Q24H [facility] Rx#:[id number] Oral 221 Output: Urine 750 Other: Voiding Method Bedside Commode # Voids 1 # Bowel Movements 1 Weight 95.254 kg 86.2 kg - Constitutional General appearance: cooperative, no acute distress - EENT Eyes: EOMI, PERRLA, dentition normal, normal appearance ENT: NA/AT, normal oropharynx - Neck Neck: normal ROM Carotids: right: bruit present - Respiratory Respiratory: bilateral: CTA, negative: diminished, dullness, rales, rhonchi - Cardiovascular Rhythm: regular Heart sounds: normal: S1, S2 Abnormal Heart Sounds: systolic murmur, no diastolic murmur, no rub, no S3 Gallop, no S4 Gallop, no click, no other - Gastrointestinal General gastrointestinal: normal bowel sounds, soft - Integumentary Integumentary: normal - Neurologic Left facial droop, dysarthria, - Musculoskeletal Musculoskeletal: gait normal, strength equal bilaterally, left sided weakness (Upper extremity motor 4/5, 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) - Psychiatric Psychiatric: A&O x's 3, appropriate affect, intact judgment & insight Results CBC & Chem 7: 10/17/21 16:58 10/17/21 16:58 Labs: Abnormal Lab Results - Last 24 Hours (Table) 10/17/21 10/17/21 10/18/21 Range/Units 16:47 16:58 05:42 Chloride 109 H (98-107) mmol/L Carbon Dioxide 21 L (22-30) mmol/L BUN 22 H (7-17) mg/dL Glucose 127 H (74-99) mg/dL POC Glucose (mg/dL) 114 H 109 H (75-99) mg/dL ALT 39 H (4-34) U/L Alkaline Phosphatase 144 H (38-126) U/L Laboratory Results WBC 9.2 k/uL (3.8-10.6) 10/17/21 16:58 RBC 4.29 m/uL (3.80-5.40) 10/17/21 16:58 Hgb 14.2 gm/dL (11.4-16.0) 10/17/21 16:58 Hct 41.8 % (34.0-46.0) 10/17/21 16:58 MCV 97.5 fL (80.0-100.0) 10/17/21 16:58 MCH 33.1 pg (25.0-35.0) 10/17/21 16:58 MCHC 33.9 g/dL (31.0-37.0) 10/17/21 16:58 RDW 14.7 % (11.5-15.5) 10/17/21 16:58 Plt Count 278 k/uL (150-450) 10/17/21 16:58 MPV 8.0 10/17/21 16:58 Neutrophils % 57 % 10/17/21 16:58 Lymphocytes % 33 % 10/17/21 16:58 Monocytes % 5 % 10/17/21 16:58 Eosinophils % 2 % 10/17/21 16:58 Basophils % 1 % 10/17/21 16:58 Neutrophils # 5.3 k/uL (1.3-7.7) 10/17/21 16:58 Lymphocytes # 3.0 k/uL (1.0-4.8) 10/17/21 16:58 Monocytes # 0.5 k/uL (0-1.0) 10/17/21 16:58 Eosinophils # 0.1 k/uL (0-0.7) 10/17/21 16:58 Basophils # 0.1 k/uL (0-0.2) 10/17/21 16:58 PT 10.3 sec (9.0-12.0) 10/18/21 10:24 INR 1.0 (<1.2) 10/18/21 10:24 APTT 24.7 sec (22.0-30.0) 10/17/21 16:58 Sodium 139 mmol/L (137-145) 10/17/21 16:58 Potassium 4.0 mmol/L (3.5-5.1) 10/17/21 16:58 Chloride 109 mmol/L (98-107) H 10/17/21 16:58 Carbon Dioxide 21 mmol/L (22-30) L 10/17/21 16:58 Anion Gap 9 mmol/L 10/17/21 16:58 BUN 22 mg/dL (7-17) H 10/17/21 16:58 Creatinine 0.63 mg/dL (0.52-1.04) 10/17/21 16:58 Est GFR (CKD-EPI)AfAm >90 (>60 ml/min/1.73 sqM) 10/17/21 16:58 Est GFR (CKD-EPI)NonAf >90 (>60 ml/min/1.73 sqM) 10/17/21 16:58 Glucose 127 mg/dL (74-99) H 10/17/21 16:58 POC Glucose (mg/dL) 109 mg/dL (75-99) H 10/18/21 05:42 POC Glu Human Resources Assistant Manager KATHIE Yousif Mccall 10/18/21 05:42 Calcium 9.4 mg/dL (8.4-10.2) 10/17/21 16:58 Total Bilirubin 0.6 mg/dL (0.2-1.3) 10/17/21 16:58 AST 32 U/L (14-36) 10/17/21 16:58 ALT 39 U/L (4-34) H 10/17/21 16:58 Alkaline Phosphatase 144 U/L (38-126) H 10/17/21 16:58 Troponin I <0.012 ng/mL (0.000-0.034) 10/17/21 16:58 Total Protein 7.3 g/dL (6.3-8.2) 10/17/21 16:58 Albumin 4.1 g/dL (3.5-5.0) 10/17/21 16:58 Coronavirus (PCR) Not Detected (Not Detectd) 10/17/21 19:26 Thrombosis Risk Factor Assmnt - Choose All That Apply Any of the Below Risk Factors Present?: Yes Each Factor Represents 1 point: Obesity (BMI >25) Thrombosis Risk Factor Assessment Total Risk Factor Score: 1 Thrombosis Risk Factor Assessment Level: Low Risk Assessment and Plan Plan: 1. Acute CVA, presenting on nondominant left paresis upper extremity dysarthria, and left facial droop, aspirin 81 mg daily,, gender 25 mg aspirin was given the day of admission failure of anticoagulation with subtherapeutic INRs, using Coumadin, MRI of the brain to be done, physical therapy occupational therapy, neurology and cardiology consultation echocardiogram, no prior HERMINIO is available for review in the hospital. Continue on Coumadin at this time, with aspirin, then transition to factor X a inhibition once cleared by neurology 2. Paroxysmal atrial fibrillation History of long-term anticoagulation, secondary to atrial fibrillation, has 8th CVAs related to atrial fibrillation, no history of PE. Subtherapeutic on admission, suspected cryptogenic stroke, with no carotid stenosis, a recorder is in place, unknown HERMINIO evaluation, Patient most likely would do better, with factor X a inhibition, using Xarelto or Eliquis should there be no contraindication. I'm unsure why this medication was not offered to her in the past. Cardiology, to provide further insight consult with neurology 3. Diabetes mellitus type 2, on metformin restart check A1c 4. CAD, with heart stents in the past, 5. History of colon cancer with history of colostomy with reversal 6. History of a loop recorder, pacemaker, most of the records were at [facility] 7 GI prophylaxis Lovenox 40 8. DVT prophylaxis, IV Protonix 9elective panniculectomy, performed by Dr. Sierra 05/22/2021,
[2021-10-18 12:30] LABS: Glucose,Whole Blood 111 mg/dL (75-99)
[2021-10-18] MEDS: INSULIN ASPART (NovoLOG) 100 UNIT/ML VIAL SQ SCH ×3 (14:15→20:56)
[2021-10-18] MEDS ORDERED: LORazepam 2 MG/ML INJ IV STA (14:25)
--- NOTE | 2021-10-18 14:39 | CONS ---
CONSULTATION Milka William is a 71-year-old lady with history of paroxysmal atrial fibrillation, CVA with persistent left hemiplegia and COPD who was in my office yesterday having had an episode of syncope the day before when she fell down and could not get up, with worsening slurred speech and more weakness involving left upper extremity, due to which I sent her to [facility], where she had a CTA of the brain that showed that carotid and vertebral arteries were patent and there were no filling defects. The brain CT was also negative for an acute processes. EKG showed normal sinus rhythm, and since being admitted to hospital she states that she is feeling better. At the time of my evaluation this morning she still has dysarthria and weakness involving left upper extremity. She is on Coumadin, but INR was only 1 on her initial presentation. Patient told us that she has an INR machine at home and she checks INR regularly, and most recent INR was more than 3. She was tested for coronavirus; that is negative. PAST MEDICAL HISTORY: Significant for [id number] diabetes, CVA and paroxysmal atrial fibrillation. PAST SURGICAL HISTORY: Significant for a loop recorder. MEDICATIONS: Medications at home include Zoloft, Ventolin, Glucophage and Coumadin. ALLERGIES: Patient is allergic to PENICILLIN, SULFA, LATEX AND KEFLEX. FAMILY HISTORY: Negative for premature coronary artery disease. SOCIAL HISTORY: Negative for current smoking, ETOH abuse or drug abuse. REVIEW OF SYSTEMS: HEENT is unremarkable. CARDIAC: As described above. RESPIRATORY: Negative. GI: Negative. GENITOURINARY: Negative. ALLERGY/IMMUNOLOGY: Negative. SKIN: Negative. MUSCULOSKELETAL: As described above. PSYCHOSOCIAL: Negative. LINOTYPE MACHINIST APPRENTICE: As described above. Rest of the system review is not relevant. PHYSICAL EXAMINATION: Afebrile. Heart rate is 60 beats per minute. Blood pressure is 120/60, respiratory rate is 18, O2 saturation is 96% on room air. There is no jugular venous distention. Carotid upstroke is normal. There is no bruit. Chest exam reveals good air entry bilaterally. Heart exam reveals first and second heart sounds. No gallop. No murmur. No rub. Abdomen is soft, non-tender. Examination of extremities did not reveal any edema. Peripheral pulses are felt. LINOTYPE MACHINIST APPRENTICE exam revealed left upper extremity weakness. LABS: Hemoglobin is 14.2, platelet count is 278, potassium is 4, creatinine is 0.6. ASSESSMENT: 1. Cerebrovascular accident with left upper extremity weakness and dysarthria. 2. Paroxysmal atrial fibrillation with subtherapeutic anticoagulation. PLAN: I am going to see if patient is covered for Eliquis or Xarelto. If she is, we will switch her to one of those agents. MMODL / IJN: [id number] /
--- NOTE | 2021-10-18 15:11 | MR ---
EXAMINATION TYPE: MR brain wo/w con DATE OF EXAM: 10/18/2021 COMPARISON: CT brain from yesterday HISTORY: Acute onset neuro deficit. TECHNIQUE: Multiplanar, multisequence images of the brain and brainstem is performed without and with IV contras t, utilizing 8 mL intravenous Gadavist . FINDINGS: Diffusion weighted images demonstrate no evidence of a recent infarct or other diffusion ab normality. The ventricular system and cisternal spaces are normal in size and appearance. The brain volume is age appropriate. Few small scattered foci of T2 hyperintensity, less than 8 scattered tiny lesions. Midline structures demonstrate normal morphology. The craniocervical junction appears within normal limits. Post contrast images demonstrate no abnormal enhancement. The dural venous sinuses appear pa tent. The visualized sinuses are clear and the globes are intact. IMPRESSION: No MRI evidence for recent infarct. No suspicious findings are evident.
--- NOTE | 2021-10-18 15:25 | EEG ---
ELECTROENCEPHALOGRAM REPORT DATE OF SERVICE: 10/18/2021 PREAMBLE: This is a 71-year-old female with syncopal spells and history of strokes. This study is performed to evaluate for any epileptiform activity. EEG FINDINGS: This is a 21-channel digital EEG recorded with video component, utilizing 10/20 international system with referential and bipolar montages. Background consists of well developed, well regulated, moderate voltage activity in 10-11 hertz. Background is posterior-dominant and is reactive to eye opening and closing. Photic driving response was seen with some flash frequencies. Very frequent myogenic artifact was seen in bitemporal region throughout the study. Some eye blink artifacts were also seen. Drowsiness was seen with appearance of bilaterally symmetric theta frequency rhythm, but deeper stages of sleep were not seen. No focal or generalized epileptiform activity was seen. IMPRESSION: This is a normal awake and drowsy EEG. No focal, lateralized or epileptiform activity was seen. Study was technically limited due to frequent myogenic activity seen in bitemporal region. Dictation ends here. MMODL / IJN: [id number] / MTDD
--- NOTE | 2021-10-18 15:36 | P.CNNES ---
History of Present Illness Consult date: 10/18/21 Requesting physician: Pankaj Stratton Reason for Consult: Stroke code History of Present Illness: Patient is a 71-year-old female came to the hospital by ambulance yesterday at 4:42 PM for possible strokelike symptoms. Patient states that about 1 week ago on , 10/10/2021 patient passed out. Patient states that she was standing up on the kitchen, when she had a transient lightheadedness, tunnel vision in which she was having some visual distortion in the periphery like looking through the water. And within a few seconds, she passed out, and her her son found her on the floor. She did not bite her tongue, although she claims that she did lose control of urine. She did not think much of this s kendra. However she started having headaches thereafter. 2 days ago, on Thursday, she passed out again. She landed on her left side, injured her shoulder and hit her head. She was putting dinner on the table when she had a similar visual disturbance and then passed out. No convulsive activity was witnessed. Patient went to her primary physician, who told her to go to the director of promotions. When she went to the director of promotions. Patient underwent loop recorder interrogation, and patient had no bradycardia arrhythmia noted with those syncopal spells. Patient does have paroxysmal atrial fibrillation, for which she is on warfarin. Patient was noted to have some facial droopiness, slurred speech therefore she was referred to the hospital by ambulance. Since her initial fall on 10/10/2021, she has been having headache pointing to the bifrontal region. Patient also has noticed that since last 1 week, she is having difficulty with speech, sometimes words don't come out right. 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 The first one is 2005, which affected her left side of the body. She states that she used a walker for 3 years, but then started using cane. She states that she needs to fit for AFO for the left foot related to her stroke in 2005. Since that she sometimes speaks slightly slow and slight slurring, but has gotten worse in the last 1 week. Patient states that all her strokes were treated at [facility]. We don't have any those records. Patient's blood pressure at the scene per EMS flow sheet was 150/75, pulse is 74, respirations 18, saturation 98%. In the ER patient's NIH stroke scale was reported as 5. Patient was not a candidate for TPA she came outside the window for thrombolysis. Patient's blood test shows normal CBC PT/PTT, normal electrolytes, BU and 22, creatinine 0.63. AST is normal but ALT minimally elevated 39. Troponin negative. Martines Virus PCR negative. Computed tomography scan of head was negative. CTA of head and neck showed no significant stenosis, dissection, filling defect or aneurysm. Chest x-ray showed suspect mild pulmonary edema. Shoulder x-ray showed no acute process. Hip and pelvic x-ray showed no acute process. EKG normal sinus rhythm. Patient has history of diabetes since 2002. Denies any alcohol. She does have marijuana card, but has not used marijuana for last couple months. Denies any alcohol or drugs. She has smoked 2 packs per day from 1971 until she quit in 2002. She stayed of tobacco use until 2016 when she started smoking one pack per day. In the last month, she has cut back to smoking 2 cigarettes per day. Patient's home medications include warfarin 5 mg at bedtime, metformin 1000 g twice a day, albuterol 2.5 mg, multivitamin, sertraline and albuterol. Review of Systems As above in detail. All other review of systems reviewed and noncontributory. Denies any chest pain shortness of breath, wheezing or cough. Denies any fever or chills. Denies any abdominal pain, nausea vomiting diarrhea. Past Medical History Past Medical History: Cancer, CVA/TIA, Diabetes Mellitus, GERD/Reflux, Hyp erlipidemia, Hypertension, Sleep Apnea/CPAP/BIPAP Additional Past Medical History / Comment(s): states 7 strokes, states left foot drop, and wears an AFO, hx of cervical CA, and colon CA 2002, had chemo and radiation, restless leg, neuropathy tr legs, rash under abdominal flap, states has had weight loss, at one time weighed 545lbs History of Any Multi-Drug Resistant Organisms: None Reported Past Surgical History: Bowel Resection, Heart Catheterization With Stent, Hernia Repair, Hysterectomy, Joint Replacement, Pacemaker Additional Past Surgical History / Comment(s): hx of colostomy, and then reversal, tr cataract sx, left hip replaced, states had 5 hernia repairs with mesh Past Anesthesia/Blood Transfusion Reactions: No Reported Reaction Date of Last Stent Placement:: 2013 Type of Cardiac Device: Permanent Pacemaker Device Placement Date:: 12/23/20 Past Psychological History: Depression Smoking Status: Former smoker Past Alcohol Use History: None Reported Additional Past Alcohol Use History / Comment(s): smokes 1ppd, has smoked up to 3ppd in past Past Drug Use History: Marijuana Additional Drug Use History / Comment(s): occasional use, instructed to hold 24 hrs - Past Family History Brother(s) Family Medical History: Cancer Sister(s) History Unknown: Yes Daughter(s) History Unknown: Yes Son(s) Family Medical History: No Reported History Father Family Medical History: Cancer, Coronary Artery Disease (CAD), Diabetes Mellitus Mother Family Medical History: Coronary Artery Disease (CAD), CVA/TIA, Diabetes Mellitus Medications and Allergies Home Medications Medication Instructions Recorded Confirmed Type Warfarin [Coumadin] 5 mg PO HS 05/16/21 10/17/21 History metFORMIN HCL [Glucophage] 1,000 mg PO BID 05/16/21 10/17/21 History Albuterol Inhaler [Ventolin Hfa 2 puff INHALATION RT-QID PRN 10/17/21 10/17/21 History Inhaler] Albuterol Nebulized [Ventolin 2.5 mg INHALATION RT-QID PRN 10/17/21 10/17/21 History Nebulized] Multivit-Min/Iron/Folic/Lutein 1 tab PO BID 10/17/21 10/17/21 History [Centrum Silver Women Tablet] Sertraline [Zoloft] 50 mg PO DAILY 10/18/21 10/18/21 History Allergies Allergy/AdvReac Type Severity Reaction Status Date / Time bee venom protein (honey bee) Allergy Anaphylaxis Verified 10/17/21 18:47 cephalexin [From Keflex] Allergy Rash/Hives Verified 10/17/21 18:47 latex Allergy Rash/Hives Verified 10/17/21 18:47 Penicillins Allergy Swelling Verified 10/17/21 18:47 Sulfa (Sulfonamide Allergy Unknown Verified 10/17/21 18:47 Antibiotics) Physical Examination - Vital Signs Vital Signs: Vital Signs Temp Pulse Pulse Resp BP BP Pulse Ox 10/18/21 08:00 98 F 60 18 120/68 96 10/18/21 04:00 97.7 F 61 18 135/72 93 L 10/18/21 02:00 60 18 10/17/21 23:00 97.6 F 60 18 161/84 96 10/17/21 22:40 97.6 F 18 161/84 96 10/17/21 22:17 56 L 20 168/85 95 10/17/21 20:30 61 20 142/76 96 10/17/21 19:15 58 L 20 140/85 96 10/17/21 18:45 98.0 F 60 20 152/71 97 10/17/21 18:15 98.0 F 62 20 150/72 96 10/17/21 17:45 64 16 152/72 96 10/17/21 17:30 66 16 136/65 95 10/17/21 17:25 89 L 10/17/21 17:15 66 16 146/74 97 10/17/21 17:00 61 16 142/91 94 L 10/17/21 16:45 98.1 F 68 16 166/84 94 L Intake and Output 10/17/21 10/18/21 10/18/21 22:59 06:59 14:59 Intake Total 221 140 Output Total 750 Balance 221 -610 Intake: Intake, IV Titration 140 Amount Sodium Chloride 0.9% 1, 140 000 ml @ 20 mls/hr IV . Q24H [facility] Rx#:[id number] Oral 221 Output: Urine 750 Other: Voiding Method Bedside Commode # Voids 1 # Bowel Movements 1 Weight 95.254 kg 86.2 kg Patient is an elderly female, in no acute distress. Patient is alert awake oriented to time place and person. Speech is mildly scanning, mildly stuttering and language functions are normal. No aphasia. Patient can name and repeat very well. Attention, concentration and fund of knowledge is adequate. On cranial examination, pupils are round and reacting to light, visual whitehead are full on confrontation, with no neglect. Her extraocular muscles are intact with no nystagmus. Face is symmetric, tongue protrudes to the midline. Palatal elevation and sensation normal, hearing and shoulder shrug normal, facial sensation normal. Shoulder shrug normal. On muscle strength testing, there is left-sided drift without pronation. Her strength is normal in the right arm, whereas the left arm her shoulder is very painful for testing related to the fall. Her muskrat trapper is 4+ on the left, normal on the right. In the lower limbs, her right hip flexion is 5, left 5-. Her ankle dorsiflexion are normal bilaterally, with no evidence of foot drop. Deep tendon reflexes are 1+ in the upper limbs, trace at the knees, plantars downgoing bilaterally. Sensory to touch is decrease in the left arm and leg as compared to the right.. Cerebellar function showed no ataxia for [id number] testing. No dysdiadochokinesia. Tone and bulk of muscles normal. Gaitdeferred. Patient uses a cane. On general examination, there is no carotid bruit or murmur, S1-S2 audible. Abdomen is soft nontender. Chest is clear. Peripheral pulses are present. No edema. Results - Laboratory Findings CBC and BMP: 10/17/21 16:58 10/17/21 16:58 Abnormal Lab Findings: Abnormal Labs 10/17/21 10/17/21 10/18/21 16:47 16:58 05:42 Chloride 109 H Carbon Dioxide 21 L BUN 22 H Glucose 127 H POC Glucose (mg/dL) 114 H 109 H ALT 39 H Alkaline Phosphatase 144 H Assessment and Plan Assessment: * 71-year-old female, with history of "7 strokes" in the past, came with 1 week history of increased slurred speech, headache since she suffered from syncopal spell on 10/10/2021. She had another syncopal spell 2 days ago. Patient had questionable transient facial droop noted at the cardiology office, therefore need to rule out stroke TIA. * Syncopal spells 2, rule out seizure. * Left shoulder pain and weakness since fall, rule out rotator cuff issue. * Paroxysmal atrial fibrillation * Hypertension * Diabetes * Hyperlipidemia * Tobacco use Plan: * Urgent MRI of the brain was performed today, which was negative for any acute ischemic stroke. No suspicious findings are evident. * EEG was performed, which was normal awake and drowsy EEG. No focal, lateralized or epileptiform activity was seen. Study was technically limited due to frequent myogenic activity seen in the bitemporal region. * CTA of head and neck was negative for any acute findings. No aneurysms or stenosis. * Patient has paroxysmal atrial fibrillation. Suggest switching from Coumadin to you or agents like Eliquis. Current INR is subtherapeutic at 1.0. Suggest bridging with heparin, if warfarin will be continued. * Suggest tilt table test to evaluate for recurrent syncopal spells, as both of the spells occured while patient was standing up in the kitchen. * Await lipid panel and hemoglobin A1c. * Telemetric monitoring so far showing sinus rhythm, sinus bradycardia in the 50s to 60s. * For left shoulder pain and weakness since the fall, consider orthopedic surgery evaluation. * Dr. Ish Kirkpatrick Will resume neurology service from the morning. Addendum: 2-D echo revealed normal left ventricular size. Borderline concentric left ventricular hypertrophy. EF is between 60-65%. Mild aortic valve sclerosis. Mild to moderate AR. Severe aortic stenosis. This is probably the cause of syncope. Cardiology on board.
[2021-10-18 16:30] LABS: Glucose,Whole Blood 175 mg/dL (75-99)
--- NOTE | 2021-10-18 17:01 | ECHOF ---
Referral Reason:cva MEASUREMENTS -------- HEIGHT: 167.6 cm WEIGHT: 86.2 kg BP: RVIDd: 3.1 cm (< 3.3) IVSd: 1.2 cm (0.6 - 1.1) LVIDd: 3.5 cm (3.9 - 5.3) LVPWd: 1.4 cm (0.6 - 1.1) IVSs: 1.9 cm LVIDs: 2.3 cm LVPWs: 1.7 cm LA Diam: 3.3 cm (2.7 - 3.8) LAESV Index (A-L): 22.99 ml/m Ao Diam: 2.8 cm (2.0 - 3.7) AV Cusp: 1.0 cm (1.5 - 2.6) MV EXCURSION: 9.414 mm (> 18.000) MV EF SLOPE: 24 mm/s (70 - 150) EPSS: 0.8 cm MV E Logan: 0.99 m/s MV DecT: 416 ms MV A Logan: 1.32 m/s MV E/A Ratio: 0.75 AV maxP.19 mmHg AV maxP.19 mmHg AV meanP.01 mmHg AR PHT: 656 ms RAP: 5.00 mmHg RVSP: 40.09 mmHg FINDINGS -------- Sinus rhythm. This was a technically adequate study. The left ventricular size is normal. There is borderline concentric left ventricular hypertrophy. Overall left ventricular systolic function is normal with, an EF between 60 - 65 %. The right ventricle is normal in size. Normal LA size by volume 22+/-6 ml/m2. The right atrium is normal in size. Interatrial and interventricular septum intact. There is mild aortic valve sclerosis. There is [id number] aortic regurgitation. There is se keegan aortic stenosis present. Peak/mean gradient across the Aortic Valve is 78.19mmHg / 46.01mmHg. The mitral valve leaflets are mildly thickened. Mild mitral annular calcification present. There is trace to mild mitral regurgitation. The peak and mean MV gradients are 7.72mmHg 2.56mmHg as roly sured by doppler. Mild mitral stenosis. Mild tricuspid regurgitation present. There is mild pulmonary hypertension. The right ventricular systolic pressure, as measured by Doppler, is 40.09mmHg. The pulmonic valve is normal. The aortic root size is normal. Normal inferior vena cava with normal inspiratory collapse consistent with estimated right atrial pre ssure of 5 mmHg. There is no pericardial effusion. CONCLUSIONS -------- 1. The left ventricular size is normal. 2. There is borderline concentric left ventricular hypertrophy. 3. Overall left ventricular systolic function is normal with, an EF between 60 - 65 %. 4. There is mild aortic valve sclerosis. 5. There is [id number] aortic regurgitation. 6. There is severe aortic stenosis present. 7. Peak/mean gradient across the Aortic Valve is 78.19mmHg / 46.01mmHg. 8. The mitral valve leaflets are mildly thickened. 9. Mild mitral annular calcification present. 10. There is trace to mild mitral regurgitation. 11. The peak and mean MV gradients are 7.72mmHg 2.56mmHg as measured by doppler. 12. Mild mitral stenosis. 13. Mild tricuspid regurgitation present. 14. There is mild pulmonary hypertension. 15. The right ventricular systolic pressure, as measured by Doppler, is 40.09mmHg. 16. There is no pericardial effusion. HAT SPRAYER: Yola Ernst RDCS
[2021-10-18] MEDS ORDERED: WARFARIN 3 MG TAB PO ONE (18:00)
[2021-10-18] MEDS: metFORMIN 500 MG TAB PO SCH (18:10)
[2021-10-18] MEDS: ATORVASTATIN 40 MG TAB PO SCH (20:11)
[2021-10-18 20:31] LABS: Glucose,Whole Blood 123 mg/dL (75-99)
[2021-10-18] MEDS ORDERED: MULTIVITAMINS, THERA 1 EACH TAB PO SCH (21:00)
[2021-10-19 05:52] LABS: Glucose,Whole Blood 136 mg/dL (75-99)
[2021-10-19] MEDS: INSULIN ASPART (NovoLOG) 100 UNIT/ML VIAL SQ SCH ×4 (05:57→20:45)
[2021-10-19] MEDS: ALBUTEROL NEBULIZED 2.5 MG/3 ML INHALATION PRN ×2 (07:31→16:57)
[2021-10-19] MEDS: ASPIRIN 81 MG PO SCH (09:03)
[2021-10-19] MEDS: SERTRALINE 50 MG TAB PO SCH (09:03)
[2021-10-19] MEDS: metFORMIN 500 MG TAB PO SCH ×2 (09:04→20:44)
[2021-10-19] MEDS: MULTIVITAMINS, THERA 1 EACH TAB PO SCH (09:04)
[2021-10-19 11:04] LABS: Basophils % (A) 0 %; Eosinophils # (A) 0.1 k/uL (0-0.7); Eosinophils % (A) 2 %; HCT 39.3 % (34.0-46.0); HGB 13.2 gm/dL (11.4-16.0); Lymphocytes # (A) 1.7 k/uL (1.0-4.8); Lymphocytes % (A) 20 %; MCH 32.9 pg (25.0-35.0); MCHC 33.6 g/dL (31.0-37.0); MCV 97.7 fL (80.0-100.0); Mean Platelet Volume 8.4; Monocytes # (A) 0.4 k/uL (0-1.0); Monocytes % (A) 5 %; Neutrophils # (A) 6.1 k/uL (1.3-7.7); Neutrophils % (A) 72 %; Platelet Count 242 k/uL (150-450); RBC 4.02 m/uL (3.80-5.40); RDW 14.1 % (11.5-15.5); WBC 8.5 k/uL (3.8-10.6)
[2021-10-19 11:31] LABS: ALT 28 U/L (4-34); AST 25 U/L (14-36); African American GFR (CKD) 82 (>60 ml/min/1.73 sqM); Albumin 3.4 g/dL (3.5-5.0); Alkaline Phosphatase 106 U/L (38-126); Anion Gap 8 mmol/L; Blood Urea Nitrogen 20 mg/dL (7-17); Calcium 9.1 mg/dL (8.4-10.2); Carbon Dioxide 23 mmol/L (22-30); Chloride 106 mmol/L (98-107); Glucose 247 mg/dL (74-99); Non-African American GFR(CKD) 71 (>60 ml/min/1.73 sqM); Sodium 137 mmol/L (137-145); Total Bilirubin 0.9 mg/dL (0.2-1.3); Total Protein 6.3 g/dL (6.3-8.2)
[2021-10-19 11:40] LABS: Glucose,Whole Blood 192 mg/dL (75-99)
[2021-10-19 11:42] LABS: Prothrombin Time 10.3 sec (9.0-12.0)
[2021-10-19] MEDS: SODIUM CHLORIDE 0.9% 1,000 ML IV SCH (12:18)
[2021-10-19] MEDS: APIXABAN 5 MG TAB PO SCH ×2 (12:20→20:45)
--- NOTE | 2021-10-19 13:20 | P.PN ---
Subjective Progress Note Date: 10/19/21 HISTORY OF PRESENT ILLNESS This 62-year-old pleasant female, with known history of cold colon cancer 2002, requiring the chemoradiation, aortic stenosis and paroxysmal atrial fibrillation also with history of significant weight loss, at one time she weighed 545 pounds, elective abdominoplasty secondary to pannus and panniculitis, for which Dr. Sierra has performed the procedure 05/23/2021. 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 She also has aortic stenosis, followed by report clerk in [facility] and has a loop recorder. Now seeing cardiology Dr. Houston She presents emergency room, from the office of Dr. Houston, after she had fallen twice in 1 week, her last fall was one day prior to admission. Her PCP is recommended that she see her report clerk, for which she presented to the cardiology office with now new strokelike symptoms, for which she had awakened with severe headache right side, dysarthria, left upper extremity weakness and left facial droop, worsening numbness to the left arm,. She presents with acute CVA, this would be her eighth CVA. She cannot recall any recent medication changes, she is on Coumadin, and with her INR of 1.0, she is subtherapeutic upon ER admission. She takes 5 mg daily, she is unaware whether the newer factor X a inhibition is appropriate for her, or was tried at all. She had no recollection of any HERMINIO done at all, and does not have any cardiac valve replacement In the emergency room, she had CTA of the neck, shows no carotid stenosis, no dissection or aneurysm, or vertebral in ICA system, CT of the brain without contrast for TPA evaluation, shows no acute process, skeletal survey x-ray the patient has fall, falling, there is no acute fractures in the left shoulder, and bilateral hips chest x-ray shows suspected mild pulmonary edema. EKG, shows normal sinus rhythm, without acute ST-T wave changes. Labs shows INR of 1.0, liver function tests is okay except for alkaline phosphatase slightly elevated, ALT 39, blood sugar is 92-109, creatinine 0.63 Hemoglobin 14.2, WBC count normal at 9. Patient is admitted for acute CVA, with a simple left upper extremity weakness, dysarthria, facial droop, with NIH score of 5, not a candidate for TPA as she is outside of the window for TPA regimen. Consult with neurology, and cardiology. Start aspirin, and statins 10/19: Patient continues to have speech difficulty and also complaining of pain in the left shoulder secondary to recent fall. We will assess for orthopedic evaluation of the left shoulder pain. Patient has been seen by neurology recommended switching Coumadin 2 eliquis and tilt table test to evaluate syncopal episodes. Cardiology is also following and recommends switching Coumad in 2 eliquis. Patient is currently on Coumadin for anticoagulation and we will start eliquis this morning. INR today is 1.0. CBC is unremarkable. Blood sugars are running between 123 and 192. MRI of the brain revealed no evidence of recent infarct. No suspicious findings. EEG revealed normal awake and drowsy EEG. Echocardiogram reveals EF of 60-65%, borderline concentric left hypertrophy, mil d aortic valve sclerosis, mild to moderate aortic regurgitation, severe aortic stenosis with gradient 78.19 mmHg. Trace to mild mitral regurgitation, mild mitral stenosis, mild tricuspid regurgitation, mild pulmonary hypertension. RVSP 40.09 mmHg. Discharge planning is for subacute rehab at [facility] on Thursday. REVIEW OF SYSTEMS Constitutional: No fever, no chills, no night sweats. No weight change. No weakness, fatigue or lethargy. No daytime sleepiness. EENT: Reported headache. No blurred vision or double vision, no loss of vision. No loss of Hearing, no ringing in the ears, no dizziness. No nasal drainage or congestion. No epistaxis. No sore throat. Lungs: No shortness of breath, cough, no sputum production. No wheezing. Cardiovascular: No chest pain, no lower extremity edema. No palpitations. No paroxysmal nocturnal dyspnea. No orthopnea. No lightheadedness or dizziness. No syncopal episodes. Abdominal: No abdominal pain. No nausea, vomiting. No diarrhea. No constipation. No bloody or tarry stools. No loss of appetite. Genitourinary: No dysuria, increased frequency, urgency. No urinary retention. Musculoskeletal: No myalgias. No muscle weakness, no gait dysfunction, no frequent falls. No back pain. No neck pain. Left shoulder pain. Integumentary: No wounds, no lesions. No rash or pruritus. No unusual br uising. No change in hair or nails. Neurologic: No aphasia. Noted slurred speech. No facial droop. No change in mentation. No head injury. No headache. No paralysis. No paresthesia. Psychiatric: No depression. No anxiety. No mood swings. Endocrine: Noted abnormal blood sugars. No weight change. No excessive sweating or thirst. No cold intolerance. PHYSICAL EXAMINATION Gen: This is a 71-year-old female. She is resting in bed appears to be comfortable and in no acute distress HEENT: Head is atraumatic, normocephalic. Pupils equal, round. Sclerae is anicteric. NECK: Supple. No JVD. No lymphadenopathy. No thyromegaly. LUNGS: Clear to auscultation. No wheezes or rhonchi. No intercostal retractions. HEART: Regular rate and rhythm. No murmur. ABDOMEN: Soft. Bowel sounds are present. No masses. No tenderness. EXTREMITIES: No pedal edema. No calf tenderness. NEUROLOGICAL: Patient is awake, alert and oriented x3. Noted slurring of speech, left sided weakness. ASSESSMENT AND PLAN 1. Acute CVA has been ruled out by MRI, presenting on nondominant left paresis upper extremity dysarthria, and left facial droop. Start eliquis 5 mg twice daily, continue aspirin 81 mg daily, atorvastatin 80 mg at bedtime. Neurology consult appreciated 2. Paroxysmal atrial fibrillation History of long-term anticoagulation, seco ndary to atrial fibrillation, has 8th CVAs related to atrial fibrillation, no history of PE. Cardiology to determine if HERMINIO evaluation is necessary. Coumadin will be discontinued and patient started on eliquis fibril grams twice daily. Cardiology and neurology consults appreciated. 3. Diabetes mellitus type 2, on metformin restart check A1c, NovoLog scale before meals and bedtime 4. CAD, with heart stents in the past, cardiology consult. 5. History of colon cancer with history of colostomy with reversal 6. History of a loop recorder, pacemaker, most of the records were at [facility] 7 GI prophylaxis eliquis 8. DVT prophylaxis, IV Protonix 9. Elective panniculectomy, performed by Dr. Sierra 05/22/2021, 8. COVID-19 testing negative. Patient has been hospitalized during a pandemic. DISCHARGE PLAN Subacute rehab at [facility] on Thursday. Impression and plan of care have been directed as dictated by the signing physician. Thania De La Cruz nurse practitioner acting as scribe for signing physician. Objective - Vital Signs Vital signs: Vital Signs Temp 98 F 10/19/21 03:15 Pulse 57 L 10/19/21 03:15 Resp 16 10/19/21 03:15 BP 118/61 10/19/21 03:15 Pulse Ox 94 L 10/19/21 03:15 Intake & Output 10/18/21 10/19/21 10/19/21 18:59 06:59 18:59 Intake Total 720 960 240 Balance 720 960 240 Weight 86.183 kg Intake: Oral 720 960 240 Other: Voiding Method Toilet Toilet Bedside Commode Bedside Commode # Voids 2 1 - Labs CBC & Chem 7: 10/19/21 10:35 10/19/21 10:35 Labs: Abnormal Lab Results - Last 24 Hours (Table) 10/18/21 10/18/21 10/18/21 Range/Units 12:27 16:28 20:31 POC Glucose (mg/dL) 111 H 175 H 123 H (75-99) mg/dL 10/19/21 Range/Units 05:50 POC Glucose (mg/dL) 136 H (75-99) mg/dL
--- NOTE | 2021-10-19 15:24 | PN ---
PROGRESS NOTE FOLLOW-UP NOTE: This is a 71-year-old lady with history of paroxysmal atrial fibrillation, non-insulin- dependent diabetes and recent CVA who presented to hospital with worsening neurological symptoms. She is feeling better. She is able to ambulate without any issues and her speech has improved. An echocardiogram on this admission showed normal LV systolic function with severe aortic stenosis. An MRI of the brain was negative for recent infarct. She is ambulating without any issues. She was on Coumadin, but her INR was essentially 1; hence she was started on Eliquis 5 b.i.d. On exam, comfortable at rest. Vital signs are stable. Chest exam reveals good air entry bilaterally. Heart exam reveals first and second heart sounds, a grade 4/6 ejection systolic murmur in the aortic area. Abdomen is soft. Examination of extremities did not reveal any edema. Peripheral pulses are palpable. Left upper extremity weakness is noted. ASSESSMENT: 1. Paroxysmal atrial fibrillation. 2. Severe aortic stenosis. 3. History of cerebrovascular accident. PLAN: Will continue current medications. Continue to work on physiotherapy, ambulation. MMODL / IJN: [id number] /
[2021-10-19 16:47] LABS: Glucose,Whole Blood 112 mg/dL (75-99)
[2021-10-19] MEDS ORDERED: WARFARIN 5 MG TAB PO SCH (18:00)
[2021-10-19 18:08] LABS: Chol/HDL Ratio 3.98 Ratio; LDL Cholesterol,Calculated 108.5 mg/dL (0.0-131.0)
[2021-10-19] MEDS: ATORVASTATIN 40 MG TAB PO SCH (20:44)
[2021-10-19] MEDS: ACETAMINOPHEN TAB 325 MG TAB PO PRN (20:45)
[2021-10-19 20:55] LABS: Glucose,Whole Blood 151 mg/dL (75-99)
[2021-10-20] MEDS: PANTOPRAZOLE 40 MG TABLET PO SCH (05:44)
[2021-10-20 06:11] LABS: Glucose,Whole Blood 108 mg/dL (75-99)
[2021-10-20] MEDS: INSULIN ASPART (NovoLOG) 100 UNIT/ML VIAL SQ SCH ×4 (06:15→20:18)
[2021-10-20] MEDS: ASPIRIN 81 MG PO SCH (08:29)
[2021-10-20] MEDS: metFORMIN 500 MG TAB PO SCH ×2 (08:29→20:18)
[2021-10-20] MEDS: SERTRALINE 50 MG TAB PO SCH (08:29)
[2021-10-20] MEDS: MULTIVITAMINS, THERA 1 EACH TAB PO SCH (08:29)
[2021-10-20] MEDS: APIXABAN 5 MG TAB PO SCH ×2 (08:29→20:18)
[2021-10-20 09:17] LABS: Prothrombin Time 11.1 sec (9.0-12.0)
--- NOTE | 2021-10-20 11:20 | P.CNOR ---
History of Present Illness - HPI Consult date: 10/19/21 Requesting physician: Thania De La Cruz Consult reason: other (left shoulder pain and trauma) History of present illness: Patient is a 71-year-old female with a history of colon cancer, aortic stenosis, A. fib, multiple TIAs presenting to the hospital several days ago after falling multiple times within past 1 week. Patient says she presented with some left upper extremity weakness, facial droop and numbness in left arm. We have been consulted for left shoulder pain. Patient says this left shoulder pain began about the same time when she began having the left upper extremity weakness as well as the multiple falls within the past week. X-ray of the left shoulder is negative for any fractures. Patient feels that her left arm is weak and describes that she has a pain as she points to left posterior shoulder patient states that this radiates down the backside of her left arm as well as left torso. Patient denies any previous significant orthopedic surgical history. Patient is on Elqiuis currently. Patient denies chest pain, fever, shortness breath, nausea, vomiting, change in vision, loss of bowel/bladder control. Past Medical History Past Medical History: Cancer, CVA/TIA, Diabetes Mellitus, GERD/Reflux, Hyperlipidemia, Hypertension, Sleep Apnea/CPAP/BIPAP Additional Past Medical History / Comment(s): states 7 strokes, states left foot drop, and wears an AFO, hx of cervical CA, and colon CA 2002, had chemo and radiation, restless leg, neuropathy tr legs, rash under abdominal flap, states has had weight loss, at one time weighed 545lbs History of Any Multi-Drug Resistant Organisms: None Reported Past Surgical History: Bowel Resection, Heart Catheterization With Stent, Hernia Repair, Hysterectomy, Joint Replacement, Pacemaker Additional Past Surgical History / Comment(s): hx of colostomy, and then reversal, tr cataract sx, left hip replaced, states had 5 hernia repairs with mesh Past Anesthesia/Blood Transfusion Reactions: No Reported Reaction Date of Last Stent Placement:: 2013 Type of Cardiac Device: Permanent Pacemaker Device Placement Date:: 12/23/20 Past Psychological History: Depression Smoking Status: Former smoker Past Alcohol Use History: None Reported Additional Past Alcohol Use History / Comment(s): smokes 1ppd, has smoked up to 3ppd in past Past Drug Use History: Marijuana Additional Drug Use History / Comment(s): occasional use, instructed to hold 24 hrs - Past Family History Brother(s) Family Medical History: Cancer Sister(s) History Unknown: Yes Daughter(s) History Unknown: Yes Son(s) Family Medical History: No Reported History Father Family Medical History: Cancer, Coronary Artery Disease (CAD), Diabetes Mellitus Mother Family Medical History: Coronary Artery Disease (CAD), CVA/TIA, Diabetes Mellitus Medications and Allergies Home Medications Medication Instructions Recorded Confirmed Type Warfarin [Coumadin] 5 mg PO HS 05/16/21 10/17/21 History metFORMIN HCL [Glucophage] 1,000 mg PO BID 05/16/21 10/17/21 History Albuterol Inhaler [Ventolin Hfa 2 puff INHALATION RT-QID PRN 10/17/21 10/17/21 History Inhaler] Albuterol Nebulized [Ventolin 2.5 mg INHALATION RT-QID PRN 10/17/21 10/17/21 History Nebulized] Multivit-Min/Iron/Folic/Lutein 1 tab PO BID 10/17/21 10/17/21 History [Centrum Silver Women Tablet] Sertraline [Zoloft] 50 mg PO DAILY 10/18/21 10/18/21 History Allergies Allergy/AdvReac Type Severity Reaction Status Date / Time bee venom protein (honey bee) Allergy Anaphylaxis Verified 10/17/21 18:47 cephalexin [From Keflex] Allergy Rash/Hives Verified 10/17/21 18:47 latex Allergy Rash/Hives Verified 10/17/21 18:47 Penicillins Allergy Swelling Verified 10/17/21 18:47 Sulfa (Sulfonamide Allergy Unknown Verified 10/17/21 18:47 Antibiotics) Physical Examination Focused - left shoulder/left arm Negative for any significant ecchymosis, erythema. Negative for any open fractures, nodules. Negative fluctuance/purulence. Sensation is equal, symme tric, bilaterally intact throughout upper extremities. There is some moderate tenderness to palpation diffusely throughout the left shoulder. Range of motion is limited in external and internal rotation as well as forward elevation and abduction of the left shoulder. Patient is able to fully flex and extend left elbow. Top Lift Compressor strength 2+/5 in left hand. Patient has full range of motion in flexion/extension of left wrist. Motor exam shoulder abduction/external/internal rotation/for elevation 2+/5 in left UE. Neurovascular status - radial pulses are intact, 2+ bilaterally. Cap refill under 3 seconds bilaterally and digits extremities. Homans sign negative bilaterally. Negative Yazmin's bilaterally. Results - Labs Labs: Abnormal Lab Results - Last 24 Hours (Table) 10/18/21 10/19/21 10/19/21 Range/Units 20:31 05:50 10:35 BUN 20 H (7-17) mg/dL Glucose 247 H (74-99) mg/dL POC Glucose (mg/dL) 123 H 136 H (75-99) mg/dL Albumin 3.4 L (3.5-5.0) g/dL 10/19/21 10/19/21 Range/Units 11:37 16:36 BUN (7-17) mg/dL Glucose (74-99) mg/dL POC Glucose (mg/dL) 192 H 112 H (75-99) mg/dL Albumin (3.5-5.0) g/dL H & H 10/17/21 10/19/21 Range/Units 16:58 10:35 Hgb 14.2 13.2 (11.4-16.0) gm/dL Hct 41.8 39.3 (34.0-46.0) % Coagulation 10/17/21 10/18/21 10/19/21 Range/Units 16:58 10:24 10:35 INR 1.0 1.0 1.0 (<1.2) Result Diagrams: 10/19/21 10:35 10/19/21 10:35 Assessment and Plan Assessment: 1. Left shoulder pain/left arm weakness 2. History of TIAs 3. Multiple medical comorbidities Plan: 1. Left arm weakness/left shoulder pain - patient was seen at bedside. I did review the shoulder x-rays with my attending, Dr. Schrader. x-ray negative for any fractures. Patient does display some weakness within the rotator cuff muscles on exam. At this time we do not recommend any urgent/emergent orthopedic surgical intervention. We do recommend patient to follow-up in the outpatient setting. arm sling will be ordered. We do encourage patient to continue to move arm as needed 2. Appreciate medical management 3. Appreciate consult 4. Pain management - tylenol 5. DVT prophylaxis - Eliquis 6. GI prophylaxis - protonix 7. PT/OT - encourage patient to move left arm. May also keep in sling at times. Time with Patient: Less than 30
[2021-10-20 11:58] LABS: Glucose,Whole Blood 93 mg/dL (75-99)
--- NOTE | 2021-10-20 13:56 | P.PN ---
Subjective Progress Note Date: 10/20/21 HISTORY OF PRESENT ILLNESS This 62-year-old pleasant female, with known history of cold colon cancer 2002, requiring the chemoradiation, aortic stenosis and paroxysmal atrial fibrillation also with history of significant weight loss, at one time she weighed 545 pounds, elective abdominoplasty secondary to pannus and panniculitis, for which Dr. Sierra has performed the procedure 05/23/2021. 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 She also has aortic stenosis, followed by ordnance corps officer in [facility] and has a loop recorder. Now seeing cardiology Dr. Houston She presents emergency room, from the office of Dr. Houston, after she had fallen twice in 1 week, her last fall was one day prior to admission. Her PCP is recommended that she see her ordnance corps officer, for which she presented to the cardiology office with now new strokelike symptoms, for which she had awakened with severe headache right side, dysarthria, left upper extremity weakness and left facial droop, worsening numbness to the left arm,. She presents with acute CVA, this would be her eighth CVA. She cannot recall any recent medication changes, she is on Coumadin, and with her INR of 1.0, she is subtherapeutic upon ER admission. She takes 5 mg daily, she is unaware whether the newer factor X a inhibition is appropriate for her, or was tried at all. She had no recollection of any HERMINIO done at all, and does not have any cardiac valve replacement In the emergency room, she had CTA of the neck, shows no carotid stenosis, no dissection or aneurysm, or vertebral in ICA system, CT of the brain without contrast for TPA evaluation, shows no acute process, skeletal survey x-ray the patient has fall, falling, there is no acute fractures in the left shoulder, and bilateral hips chest x-ray shows suspected mild pulmonary edema. EKG, shows normal sinus rhythm, without acute ST-T wave changes. Labs shows INR of 1.0, liver function tests is okay except for alkaline phosphatase slightly elevated, ALT 39, blood sugar is 92-109, creatinine 0.63 Hemoglobin 14.2, WBC count normal at 9. Patient is admitted for acute CVA, with a simple left upper extremity weakness, dysarthria, facial droop, with NIH score of 5, not a candidate for TPA as she is outside of the window for TPA regimen. Consult with neurology, and cardiology. Start aspirin, and statins 10/19: Patient continues to have speech difficulty and also complaining of pain in the left shoulder secondary to recent fall. We will assess for orthopedic evaluation of the left shoulder pain. Patient has been seen by neurology recommended switching Coumadin 2 eliquis and tilt table test to evaluate syncopal episodes. Cardiology is also following and recommends switching Coumad in 2 eliquis. Patient is currently on Coumadin for anticoagulation and we will start eliquis this morning. INR today is 1.0. CBC is unremarkable. Blood sugars are running between 123 and 192. MRI of the brain revealed no evidence of recent infarct. No suspicious findings. EEG revealed normal awake and drowsy EEG. Echocardiogram reveals EF of 60-65%, borderline concentric left hypertrophy, mil d aortic valve sclerosis, mild to moderate aortic regurgitation, severe aortic stenosis with gradient 78.19 mmHg. Trace to mild mitral regurgitation, mild mitral stenosis, mild tricuspid regurgitation, mild pulmonary hypertension. RVSP 40.09 mmHg. Discharge planning is for subacute rehab at [facility] on Thursday. 10/20: Patient has been seen by orthopedics with noted weakness in the rotator cuff muscles and no recommendations for any urgent intervention at this time. Patient can follow-up in the outpatient setting and arm sling was ordered. Patient has been afebrile, heart rate 59, blood pressure 134/64, pulse ox 96% on 2 L nasal cannula. Capillary blood glucose running between 93 and 151. Patient has been started on eliquis as of yesterday. Discharge plan is for subacute rehab tomorrow. REVIEW OF SYSTEMS Constitutional: No fever, no chills, no night sweats. No weight change. No weakness, fatigue or lethargy. No daytime sleepiness. EENT: Reported headache. No blurred vision or double vision, no loss of vision. No loss of Hearing, no ringing in the ears, no dizziness. No nasal drainage or congestion. No epistaxis. No sore throat. Lungs: No shortness of breath, cough, no sputum production. No wheezing. Cardiovascular: No chest pain, no lower extremity edema. No palpitations. No paroxysmal nocturnal dyspnea. No orthopnea. No lightheadedness or dizziness. No syncopal episodes. Abdominal: No abdominal pain. No nausea, vomiting. No diarrhea. No constipation. No bloody or tarry stools. No loss of appetite. Genitourinary: No dysuria, no increased frequency, no urgency. No urinary retention. Musculoskeletal: No myalgias. No muscle weakness, no gait dysfunction, no frequent falls. No back pain. No neck pain. Left shoulder pain. Integumentary: No wounds, no lesions. No rash or pruritus. No unusual bruising . No change in hair or nails. Neurologic: No aphasia. Noted slurred speech. No facial droop. No change in mentation. No head injury. No headache. No paralysis. No paresthesia. Psychiatric: No depression. No anxiety. No mood swings. Endocrine: Noted abnormal blood sugars. No weight change. No excessive sweating or thirst. No cold intolerance. PHYSICAL EXAMINATION Gen: This is a 71-year-old female. She is resting in bed appears to be comfortable and in no acute distress HEENT: Head is atraumatic, normocephalic. Pupils equal, round. Sclerae is anicte teresa. NECK: Supple. No JVD. No lymphadenopathy. No thyromegaly. LUNGS: Clear to auscultation. No wheezes or rhonchi. No intercostal retractions. HEART: Regular rate and rhythm. No murmur. ABDOMEN: Soft. Bowel sounds are present. No masses. No tenderness. EXTREMITIES: No pedal edema. No calf tenderness. NEUROLOGICAL: Patient is awake, alert and oriented x3. Noted slurring and slow speech, left sided weakness. ASSESSMENT AND PLAN 1. Acute CVA has been ruled out by MRI, presenting on nondominant left paresis upper extremity dysarthria, and left facial droop. Continue eliquis 5 mg twice daily, continue aspirin 81 mg daily, atorvastatin 80 mg at bedtime. Neurology consult appreciated 2. Paroxysmal atrial fibrillation History of long-term anticoagulation, s econdary to atrial fibrillation, has 8th CVAs related to atrial fibrillation, no history of PE. Cardiology to determine if HERMINIO evaluation is necessary. Coumadin will be discontinued and patient started on eliquis fibril grams twice daily. Cardiology and neurology consults appreciated. 3. Diabetes mellitus type 2, on metformin restart check A1c, NovoLog scale before meals and bedtime 4. CAD, with heart stents in the past, cardiology consult. 5. History of colon cancer with history of colostomy with reversal 6. History of a loop recorder, pacemaker, most of the records were at [facility] 7 GI prophylaxis eliquis 8. DVT prophylaxis, IV Protonix 9. Elective panniculectomy, performed by Dr. Sierra 05/22/2021, 8. COVID-19 testing negative. Patient has been hospitalized during a pandemic. DISCHARGE PLAN Subacute rehab at [facility] on Thursday. Impression and plan of care have been directed as dictated by the signing physician. Thania De La Cruz nurse practitioner acting as scribe for signing physician. Objective - Vital Signs Vital signs: Vital Signs Temp 98.8 F 10/19/21 20:33 Pulse 61 10/20/21 04:00 Resp 16 10/20/21 04:00 BP 110/55 10/20/21 04:00 Pulse Ox 91 L 10/20/21 04:00 Intake & Output 10/19/21 10/20/21 10/20/21 18:59 06:59 18:59 Intake Total 980 200 240 Balance 980 200 240 Weight 86.4 kg Intake: Oral 980 200 240 Other: # Voids 1 1 # Bowel Movements 1 - Labs CBC & Chem 7: 10/19/21 10:35 10/19/21 10:35 Labs: Abnormal Lab Results - Last 24 Hours (Table) 10/19/21 10/19/21 10/19/21 Range/Units 10:35 10:35 11:37 BUN 20 H (7-17) mg/dL Glucose 247 H (74-99) mg/dL POC Glucose (mg/dL) 192 H (75-99) mg/dL Hemoglobin A1c 7.2 H (4.0-6.0) % Albumin 3.4 L (3.5-5.0) g/dL 10/19/21 10/19/21 10/20/21 Range/Units 16:36 20:44 06:06 BUN (7-17) mg/dL Glucose (74-99) mg/dL POC Glucose (mg/dL) 112 H 151 H 108 H (75-99) mg/dL Hemoglobin A1c (4.0-6.0) % Albumin (3.5-5.0) g/dL
[2021-10-20 16:34] LABS: Glucose,Whole Blood 107 mg/dL (75-99)
[2021-10-20] MEDS: SODIUM CHLORIDE 0.9% 1,000 ML IV SCH (16:49)
--- NOTE | 2021-10-20 17:41 | PN ---
PROGRESS NOTE FOLLOW-UP NOTE: Milka William is a 71-year-old lady was admitted to hospital with CVA. She has made excellent recovery so far. Her speech has improved. Left upper extremity weakness has improved. On exam this morning, afebrile. Heart rate is 70 beats per minute. Blood pressure is 130/62, respiratory rate is 16, O2 saturation is 96% on room air. There is no jugular venous distention. Carotid upstroke is normal. There is no bruit. Chest exam reveals diminished air entry at the bases. Heart exam reveals first and second heart sounds and a systolic murmur at the apex. There is an ejection systolic murmur in the aorta area. A recent echocardiogram showed normal left ventricular function with severe aortic stenosis. Abdomen is soft. Examination of extremities did not reveal any edema. Peripheral pulses are felt. Has left upper extremity weakness. She is currently on aspirin, Eliquis 5 b.i.d., insulin, Glucophage. ASSESSMENT: 1. Paroxysmal atrial fibrillation. 2. Cerebrovascular accident. 3. Severe aortic stenosis. PLAN: Continue current medications. Aortic stenosis needs to be addressed once the stroke issues are completely resolved. MMODL / IJN: [id number] /
[2021-10-20] MEDS: ATORVASTATIN 40 MG TAB PO SCH (20:18)
[2021-10-20] MEDS: ACETAMINOPHEN TAB 325 MG TAB PO PRN (20:18)
[2021-10-20 20:35] LABS: Glucose,Whole Blood 163 mg/dL (75-99)
[2021-10-21] MEDS: PANTOPRAZOLE 40 MG TABLET PO SCH (05:45)
[2021-10-21] MEDS: INSULIN ASPART (NovoLOG) 100 UNIT/ML VIAL SQ SCH ×4 (05:45→21:29)
[2021-10-21 06:24] LABS: Glucose,Whole Blood 119 mg/dL (75-99)
[2021-10-21] MEDS: MULTIVITAMINS, THERA 1 EACH TAB PO SCH (07:37)
[2021-10-21] MEDS: ASPIRIN 81 MG PO SCH (07:37)
[2021-10-21] MEDS: SERTRALINE 50 MG TAB PO SCH (07:37)
[2021-10-21] MEDS: metFORMIN 500 MG TAB PO SCH ×2 (07:37→21:29)
[2021-10-21] MEDS: APIXABAN 5 MG TAB PO SCH ×2 (07:37→21:29)
[2021-10-21] MEDS: ALBUTEROL NEBULIZED 2.5 MG/3 ML INHALATION PRN ×4 (08:29→19:00)
--- NOTE | 2021-10-21 10:14 | P.DS ---
Providers Date of admission: 10/17/21 19:15 Expected date of discharge: 10/21/21 Attending physician: Amanda Crowley Consults: 10/17/21 19:06 Consult Physician Routine Consulting Provider: Robert Srivastava Consult Reason/Comments: code stroke Do you want consulting provider notified?: Yes 10/18/21 09:58 Consult Physician Routine Consulting Provider: Delbert Houston Consult Reason/Comments: syncopal episode, code stroke Do you want consulting provider notified?: Yes 10/19/21 10:24 Consult Physician Routine Consulting Provider: Jordin Schrader Consult Reason/Comments: left shoulder pain and trauma Do you want consulting provider notified?: Yes Primary care physician: [facility] Course: HISTORY OF PRESENT ILLNESS This 62-year-old pleasant female, with known history of cold colon cancer 2002, requiring the chemoradiation, aortic stenosis and paroxysmal atrial fibrillation also with history of significant weight loss, at one time she weighed 545 pounds, elective abdominoplasty secondary to pannus and panniculitis, for which Dr. Sierra has performed the procedure 05/23/2021. 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 She also has aortic stenosis, followed by physiognomist in [facility] and has a loop recorder. Now seeing cardiology Dr. Houston She presents emergency room, from the office of Dr. Houston, after she had fallen twice in 1 week, her last fall was one day prior to admission. Her PCP is recommended that she see her physiognomist, for which she presented to the cardiology office with now new strokelike symptoms, for which she had awakened with severe headache right side, dysarthria, left upper extremity weakness and left facial droop, worsening numbness to the left arm,. She presents with acute CVA, this would be her eighth CVA. She cannot recall any recent medication changes, she is on Coumadin, and with her INR of 1.0, she is subtherapeutic upon ER admission. She takes 5 mg daily, she is unaware whether the newer factor X a inhibition is appropriate for her, or was tried at all. She had no recollection of any HERMINIO done at all, and does not have any cardiac valve replacement In the emergency room, she had CTA of the neck, shows no carotid stenosis, no dissection or aneurysm, or vertebral in ICA system, CT of the brain without contrast for TPA evaluation, shows no acute process, skeletal survey x-ray the patient has fall, falling, there is no acute fractures in the left shoulder, and bilateral hips chest x-ray shows suspected mild pulmonary edema. EKG, shows normal sinus rhythm, without acute ST-T wave changes. Labs shows INR of 1.0, liver function tests is okay except for alkaline phosphatase slightly elevated, ALT 39, blood sugar is 92-109, creatinine 0.63 Hemoglobin 14.2, WBC count normal at 9. Patient is admitted for acute CVA, with a simple left upper extremity weakness, dysarthria, facial droop, with NIH score of 5, not a candidate for TPA as she is outside of the window for TPA regimen. Consult with neurology, and cardiology. Start aspirin, and statins 10/19: Patient continues to have speech difficulty and also complaining of pain in the left shoulder secondary to recent fall. We will assess for orthopedic evaluation of the left shoulder pain. Patient has been seen by neurology recommended switching Coumadin 2 eliquis and tilt table test to evaluate syncopal episodes. Cardiology is also following and recommends switching Coumadin 2 eliquis. Patient is currently on Coumadin for anticoagulation and we will start eliquis this morning. INR today is 1.0. CBC is unremarkable. Blood sugars are running between 123 and 192. MRI of the brain revealed no evidence of recent infarct. No suspicious findings. EEG revealed normal awake and drowsy EEG. Echocardiogram reveals EF of 60-65%, borderline concentric left hypertrophy, mild aortic valve sclerosis, mild to moderate aortic regurgitation, severe aortic stenosis with gradient 78.19 mmHg. Trace to mild mitral regurgitation, mild mitral stenosis, mild tricuspid regurgitation, mild pulmonary hypertension. RVSP 40.09 mmHg. Discharge planning is for subacute rehab at [facility] on Thursday. 10/20: Patient has been seen by orthopedics with noted weakness in the rotator cuff muscles and no recommendations for any urgent intervention at this time. Patient can follow-up in the outpatient setting and arm sling was ordered. Patient has been afebrile, heart rate 59, blood pressure 134/64, pulse ox 96% on 2 L nasal cannula. Capillary blood glucose running between 93 and 151. Patient has been started on eliquis as of yesterday. Discharge plan is for subacute rehab tomorrow. 10/21: She has been reassessed by neurology with recommendations that eliquis is sufficient and baby aspirin not necessary, continue Lipitor. There is talk of having a tilt table test. If patient has further syncopal spells would recommend long-term EEG as an outpatient. Patient follow-up with neurologist in 2 weeks. She has been afebrile, heart rate in the 50s and 60s, blood pressure 137/63, pulse ox 94% on room air. She has been evaluated by physical therapy and occupational therapy, ambulated well in the hallway and is cleared for discharge home. DISCHARGE DIAGNOSES 1. Acute CVA has been ruled out by MRI, status post 2 syncopal episodes possibly related to severe aortic stenosis, arrhythmia, hypotension. 2. Paroxysmal atrial fibrillation. 3. Diabetes mellitus type 2, A1c 7.2. 4. CAD, with heart stents in the past. 5. History of colon cancer with history of colostomy with reversal 6. History of a loop recorder, pacemaker, most of the records were at [facility] 7. Elective panniculectomy, performed by Dr. Sierra 05/22/2021, 8. COVID-19 testing negative. Patient has been hospitalized during a pandemic. DISCHARGE PLAN Home with [facility]. Greater than 35 minutes was utilized and coordinating patient's discharge. Impression and plan of care have been directed as dictated by the signing physician. Thania De La Cruz nurse practitioner acting as scribe for signing physician. Patient Condition at Discharge: Good Plan - Discharge Summary Discharge Rx Participant: No New Discharge Prescriptions: New Acetaminophen Tab [Tylenol] 650 mg PO Q6HR PRN tab PRN Reason: Fever And/ Or Pain Apixaban [Eliquis] 5 mg PO BID #60 tab Atorvastatin [Lipitor] 40 mg PO HS #30 tablet Continue metFORMIN HCL [Glucophage] 1,000 mg PO BID Albuterol Nebulized [Ventolin Nebulized] 2.5 mg INHALATION RT-QID PRN PRN Reason: Shortness Of Breath Multivit-Min/Iron/Folic/Lutein [Centrum Silver Women Tablet] 1 tab PO BID Albuterol Inhaler [Ventolin Hfa Inhaler] 2 puff INHALATION RT-QID PRN PRN Reason: Shortness Of Breath Sertraline [Zoloft] 50 mg PO DAILY Discontinued Warfarin [Coumadin] 5 mg PO HS Discharge Medication List metFORMIN HCL [Glucophage] 1,000 mg PO BID 05/16/21 [History] Albuterol Inhaler [Ventolin Hfa Inhaler] 2 puff INHALATION RT-QID PRN 10/17/21 [History] Albuterol Nebulized [Ventolin Nebulized] 2.5 mg INHALATION RT-QID PRN 10/17/21 [History] Multivit-Min/Iron/Folic/Lutein [Centrum Silver Women Tablet] 1 tab PO BID 10/17/21 [History] Sertraline [Zoloft] 50 mg PO DAILY 10/18/21 [History] Acetaminophen Tab [Tylenol] 650 mg PO Q6HR PRN tab 10/20/21 [Rx] Apixaban [Eliquis] 5 mg PO BID #60 tab 10/21/21 [Rx] Atorvastatin [Lipitor] 40 mg PO HS #30 tablet 10/21/21 [Rx] Follow up Appointment(s)/Referral(s): [facility], [NON-STAFF] - Delbert Houston MD [STAFF PHYSICIAN] - 1 Week Zhang Holguin MD [Primary Care Provider] - 1 Week (After discharge from subacute rehab) Activity/Diet/Wound Care/Special Instructions: Radha 47.00/ month Discharge Disposition: HOME WITH HOME HEALTH SERVICES
[2021-10-21 11:34] LABS: Glucose,Whole Blood 143 mg/dL (75-99)
--- NOTE | 2021-10-21 12:16 | P.PN ---
Subjective Progress Note Date: 10/21/21 I am seeing the patient for the first time for neurological management. Please refer to Dr. Srivastava's note for further details. Patient states she is doing drastically better today compared to initial present ation. She denies of any new weakness, numbness, visual disturbance or difficulty getting her words out. She has left arm sling for her injury on left side due to syncope. Per nurse unsure about tilt table test requested by Dr. Srivastava and waiting for cardiology. Per patient she had loop recorder placed since 12/2020 and continues to have loop recorder but unsure of exact reading. She follows-up with Dr. Houston ([employer]). She was told in past she had possibly pauses. Objective - Vital Signs Vital signs: Vital Signs Temp 97.2 F L 10/21/21 07:22 Pulse 68 10/21/21 08:44 Resp 16 10/21/21 07:22 BP 137/63 10/21/21 07:22 Pulse Ox 94 L 10/21/21 07:22 Intake & Output 10/20/21 10/21/21 10/21/21 18:59 06:59 18:59 Intake Total 900 260 Balance 900 260 Weight 85.7 kg Intake: Oral 900 260 Other: # Voids 1 1 # Bowel Movements 1 - Exam GENERAL: The patient is lying in bed and is not in acute distress. NEUROLOGICAL: Higher mental function: The patient is awake, alert, oriented to self, place and time. Patient is following commands. Patient has mild stuttering and scanning to speech. No aphasia or neglect. Cranial nerves: The pupils are round, equal and reactive to light and accommodation. Visual whitehead are full to confrontation throughout. Extraocular movement is intact no nystagmus is noted. Facial sensation is normal to touch throughout. The facial strength is normal throughout. Tongue is midline and moved [id number] without any difficulty. No dysarthria is noted. Shoulder shrug is normal bilaterally. Motor: The strength is limited over the left upper extremity since has pain and is wearing sling. Otherwise 5 over 5 throughout. Normal tone and bulk (except left upper extremity hard to assess tone). Cerebellum: Normal finger to nose over the right. Sensation: Sensation is decreased over the left upper extremity to touch. WORK-UP: * Lipid panel: Triglyceride is 135, cholesterol is 181, LDL is 108 and HDL is 45 at. * Hemoglobin A1c 7.2 * Martines virus was not detected. * MRI of the brain was performed today, which was negative for any acute ischemic stroke. No suspicious findings are evident. * EEG was performed, which was normal awake and drowsy EEG. No focal, lateralized or epileptiform activity was seen. Study was technically limited due to frequent myogenic activity seen in the bitemporal region. * CTA of head and neck was negative for any acute findings. No aneurysms or stenosis. * Computed tomography scan of head was negative * 2-D echo was reported as borderline concentric left ventricular hypertrophy. Ejection fraction of 60-65%. Mild to moderate aortic regurgitation. Severe aortic stenosis present. Normal left atrial size by volume. 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 She had another syncopal spell 2 days ago. Patient had questionable transient facial droop noted at the cardiology office. MRI Brain is negative for acute or subacute stroke * Syncopal spells 2. Unsure exact cause but severe aortic stenosis can lead to syncope * Severe Aortic stenosis * Left shoulder pain and weakness since fall * Paroxysmal atrial fibrillation currently on eliquis * History of coronary artery disease status post stent * Hypertension * Diabetes (Current HbA1c 7.2) * Hyperlipidemia * Tobacco use Plan: * Patient had a current MRI of the brain was negative for acute or subacute stroke. Also had a routine EEG during this admission and there is no epileptiform not discharges or seizure that is reported. * Currently the patient is on Eliquis 5 mg 1 tablet twice a day and aspirin 81 mg daily. From a neurology perspective will defer the use of aspirin to the primary cardiology team since Eliquis is sufficient from a neurological perspective. Also patient is on Lipitor 40 mg daily at bedtime. * Pending on tilt table test requested by Dr. Srivastava. If unable to be performed can be done as outpatient. Severe aortic stenosis can cause syncopal episode and we'll defer the management to the cardiology team. It seems that the patient has history of loop recorder (since 12/2020) with a pacemaker and most of the records were at [facility]. Not sure of finding but she needs to follow-up with cardiology regarding this and will attempt to contact cardiology for results (I spoke with cardiology team and will attempt to interrogate device). * If patient continues to have further syncopal spells and it's unknown etiology then recommend long-term EEG and neck could be done as an outpatient. * Cardiology team is on board * Orthopedic team is on board for left shoulder pain * PT, OT and SOLAR LAB TECHNICIAN are consulted * Defer the rest of the medical management to the primary team. Next * On discharge recommended the patient follow-up with a neurologist within 2 weeks. The plan is discussed with the patient, her nurse, cardiology team and primary team. Otherwise no further work-up. Ish Kirkpatrick M.D. Neuro-hospitalist Time with Patient: Less than 30
[2021-10-21] MEDS: SODIUM CHLORIDE 0.9% 1,000 ML IV SCH (12:30)
[2021-10-21 13:08] LABS: Prothrombin Time 11.1 sec (9.0-12.0)
--- NOTE | 2021-10-21 14:35 | P.PN ---
Subjective Progress Note Date: 10/21/21 HISTORY OF PRESENT ILLNESS: This 71-year-old female who is admitted to the hospital secondary to syncope and possible CVA. Patient examined at the bedside. He denies chest pain or p ressure. She denies shortness of breath. Denies dizziness or lightheadedness. She states she has been up ambulating in the hallway. No further syncopal episodes since coming to the hospital. Telemetry reveals sinus mechanism. She is anticoagulated with Eliquis. PHYSICAL EXAM: VITAL SIGNS: Reviewed. GENERAL: Well-developed in no acute distress. NECK: Supple. No JVD or thyromegaly LUNGS: Respirations even and unlabored. Lungs essentially clear to auscultation bilaterally. HEART: Regular rate and rhythm. S1 and S2 heard. Systolic murmur noted. EXTREMITIES: Normal range of motion. No clubbing or cyanosis. Peripheral pulses intact. No lower extremity edema ASSESSMENT: Possible CVA, ruled out per MRI and CT Recurrent syncopal episodes Severe aortic stenosis Paroxysmal atrial fibrillation Coronary artery disease with previous PCI History of colon cancer Diabetes PLAN: Continue current cardiac medications Continue telemetry monitoring No plans for tilt table test at this time Patient has a loop recorder. Will attempt to interrogate device Further recommendations pending patient course Nurse practitioner note has been reviewed by physician. Signing provider agrees with the documented findings, assessment, and plan of care. Objective - Vital Signs Vital signs: Vital Signs Temp 97.6 F 10/21/21 12:00 Pulse 64 10/21/21 12:19 Resp 16 10/21/21 12:00 BP 127/72 10/21/21 12:00 Pulse Ox 93 L 10/21/21 12:00 Intake & Output 10/20/21 10/21/21 10/21/21 18:59 06:59 18:59 Intake Total 900 1120 Balance 900 1120 Weight 85.7 kg Intake: Oral 900 1120 Other: # Voids 1 1 # Bowel Movements 1 - Labs CBC & Chem 7: 10/19/21 10:35 10/19/21 10:35 Labs: Abnormal Lab Results - Last 24 Hours (Table) 10/20/21 10/20/21 10/21/21 Range/Units 16:32 20:17 05:44 POC Glucose (mg/dL) 107 H 163 H 119 H (75-99) mg/dL 10/21/21 Range/Units 11:31 POC Glucose (mg/dL) 143 H (75-99) mg/dL
[2021-10-21 16:47] LABS: Glucose,Whole Blood 147 mg/dL (75-99)
[2021-10-21 20:14] LABS: Glucose,Whole Blood 178 mg/dL (75-99)
[2021-10-21] MEDS: ATORVASTATIN 40 MG TAB PO SCH (21:29)
[2021-10-22 06:14] LABS: Glucose,Whole Blood 112 mg/dL (75-99)
[2021-10-22] MEDS: INSULIN ASPART (NovoLOG) 100 UNIT/ML VIAL SQ SCH ×4 (06:17→20:03)
[2021-10-22] MEDS: PANTOPRAZOLE 40 MG TABLET PO SCH (06:18)
[2021-10-22] MEDS: ASPIRIN 81 MG PO SCH (08:23)
[2021-10-22] MEDS: SERTRALINE 50 MG TAB PO SCH (08:23)
[2021-10-22] MEDS: APIXABAN 5 MG TAB PO SCH ×2 (08:23→20:03)
[2021-10-22] MEDS: MULTIVITAMINS, THERA 1 EACH TAB PO SCH (08:23)
[2021-10-22] MEDS: metFORMIN 500 MG TAB PO SCH ×2 (08:23→20:03)
[2021-10-22 12:12] LABS: Glucose,Whole Blood 86 mg/dL (75-99)
[2021-10-22] MEDS: SODIUM CHLORIDE 0.9% 1,000 ML IV SCH (12:32)
--- NOTE | 2021-10-22 12:42 | P.PN ---
Subjective Progress Note Date: 10/22/21 HISTORY OF PRESENT ILLNESS: This 71-year-old female who is admitted to the hospital secondary to syncope and possible CVA. Patient examined at the bedside. He denies chest pain or p ressure. She denies shortness of breath. Denies dizziness or lightheadedness. She states she has been up ambulating in the hallway. No further syncopal episodes since coming to the hospital. Telemetry reveals sinus mechanism. She is anticoagulated with Eliquis. 10/22/2021 Patient examined this morning at the bedside. Patient denies chest pain or pressure. Denies shortness of breath. No further syncopal episodes since coming to the hospital. Telemetry reveals sinus mechanism. No arrhythmias noted. She remains on Eliquis for anticoagulation. Vital signs stable. PHYSICAL EXAM: VITAL SIGNS: Reviewed. GENERAL: Well-developed in no acute distress. NECK: Supple. No JVD or thyromegaly LUNGS: Respirations even and unlabored. Lungs essentially clear to auscultation bilaterally. HEART: Regular rate and rhythm. S1 and S2 heard. Systolic murmur noted. EXTREMITIES: Normal range of motion. No clubbing or cyanosis. Peripheral pulses intact. No lower extremity edema ASSESSMENT: Possible CVA, ruled out per MRI and CT Recurrent syncopal episodes Severe aortic stenosis Paroxysmal atrial fibrillation Coronary artery disease with previous PCI History of colon cancer Diabetes PLAN: Continue current cardiac medications Continue telemetry monitoring No plans for tilt table test at this time Patient has a loop recorder. Will attempt to interrogate device. Awaiting device rep to come interrogate device. Further recommendations pending patient course Nurse practitioner note has been reviewed by physician. Signing provider agrees with the documented findings, assessment, and plan of care. Objective - Vital Signs Vital signs: Vital Signs Temp 97.4 F L 10/22/21 08:30 Pulse 63 10/22/21 08:30 Resp 16 10/22/21 08:30 BP 126/58 10/22/21 08:30 Pulse Ox 97 10/22/21 08:30 Intake & Output 10/21/21 10/22/21 10/22/21 18:59 06:59 18:59 Intake Total 1390 240 240 Balance 1390 240 240 Weight 87.9 kg Intake: IV 10 Invasive Line 2 10 Oral 1380 240 240 Other: Voiding Method Toilet # Voids 1 - Labs CBC & Chem 7: 10/19/21 10:35 10/19/21 10:35 Labs: Abnormal Lab Results - Last 24 Hours (Table) 10/21/21 10/21/21 10/22/21 Range/Units 16:36 20:13 06:13 POC Glucose (mg/dL) 147 H 178 H 112 H (75-99) mg/dL
[2021-10-22] MEDS: ALBUTEROL NEBULIZED 2.5 MG/3 ML INHALATION PRN (12:48)
--- NOTE | 2021-10-22 13:07 | P.PN ---
Subjective Progress Note Date: 10/22/21 Principal diagnosis: Left shoulder pain/weakness Patient was seen at bedside this morning sitting up in chair resting comfortably was sitting in place on left arm. Patient says she is still feeling weakness in the left arm, however, patient says she feels her range of motion has been getting better over the past couple days. Patient denies chest pain, fever, chest breath, nausea, vomiting, change in vision, loss of bowel/bladder control. Objective - Vital Signs Vital signs: Vital Signs Temp 97.4 F L 10/22/21 08:30 Pulse 68 10/22/21 12:48 Resp 16 10/22/21 08:30 BP 126/58 10/22/21 08:30 Pulse Ox 97 10/22/21 08:30 Intake & Output 10/21/21 10/22/21 10/22/21 18:59 06:59 18:59 Intake Total 1390 240 240 Balance 1390 240 240 Weight 87.9 kg Intake: IV 10 Invasive Line 2 10 Oral 1380 240 240 Other: Voiding Method Toilet # Voids 1 - Labs CBC & Chem 7: 10/19/21 10:35 10/19/21 10:35 Labs: Abnormal Lab Results - Last 24 Hours (Table) 10/21/21 10/21/21 10/22/21 Range/Units 16:36 20:13 06:13 POC Glucose (mg/dL) 147 H 178 H 112 H (75-99) mg/dL Assessment and Plan Assessment: 1. Left shoulder pain/left arm weakness 2. History of TIAs 3. Multiple medical comorbidities Plan: 1. Left arm weakness/left shoulder pain - patient was seen at bedside. At this time we do not recommend any urgent/emergent orthopedic surgical intervention. We do recommend patient to follow-up in the outpatient setting. We do encourage patient to continue to move arm as needed. Patient orthopedically stable for discharge home. At this time orthopedics is signing off. Please do not hesitate to contact us for any further questions. 2. Appreciate medical management 3. Appreciate consult 4. Pain management - tylenol 5. DVT prophylaxis - Eliquis 6. GI prophylaxis - protonix 7. PT/OT - encourage patient to move left arm. May also keep in sling at times. Time with Patient: Less than 30
--- NOTE | 2021-10-22 13:55 | P.PN ---
Subjective Progress Note Date: 10/22/21 The patient is seen at bedside and states she is doing well. She denies of any new neurological problems. She denies of any further episodes of passing out since during this admission. Objective - Vital Signs Vital signs: Vital Signs Temp 97.4 F L 10/22/21 08:30 Pulse 68 10/22/21 12:48 Resp 16 10/22/21 08:30 BP 126/58 10/22/21 08:30 Pulse Ox 97 10/22/21 08:30 Intake & Output 10/21/21 10/22/21 10/22/21 18:59 06:59 18:59 Intake Total 1390 240 240 Balance 1390 240 240 Weight 87.9 kg Intake: IV 10 Invasive Line 2 10 Oral 1380 240 240 Other: Voiding Method Toilet # Voids 1 - Exam GENERAL: The patient is lying in bed and is not in acute distress. NEUROLOGICAL: Higher mental function: The patient is awake, alert, oriented to self, place and time. Patient is following commands. Patient has mild stuttering and scanning to speech. No aphasia or neglect. Cranial nerves: The pupils are round, equal and reactive to light and accommodation. Visual whitehead are full to confrontation throughout. Extraocular movement is intact no nystagmus is noted. Facial sensation is normal to touch throughout. The facial strength is normal throughout. Tongue is midline and moved [id number] without any difficulty. No dysarthria is noted. Shoulder shrug is normal bilaterally. Motor: The strength is limited over the left upper extremity since has pain and is wearing sling. Otherwise 5 over 5 throughout. Normal tone and bulk (except left upper extremity hard to assess tone). Cerebellum: Normal finger to nose over the right. Sensation: Sensation is decreased over the left upper extremity to touch. WORK-UP: * Lipid panel: Triglyceride is 135, cholesterol is 181, LDL is 108 and HDL is 45 at. * Hemoglobin A1c 7.2 * Martines virus was not detected. * MRI of the brain was performed today, which was negative for any acute ischemic stroke. No suspicious findings are evident. * EEG was performed, which was normal awake and drowsy EEG. No focal, lateralized or epileptiform activity was seen. Study was technically limited due to frequent myogenic activity seen in the bitemporal region. * CTA of head and neck was negative for any acute findings. No aneurysms or stenosis. * Computed tomography scan of head was negative * 2-D echo was reported as borderline concentric left ventricular hypertrophy. Ejection fraction of 60-65%. Mild to moderate aortic regurgitation. Severe aortic stenosis present. Normal left atrial size by volume. - Labs CBC & Chem 7: 10/19/21 10:35 10/19/21 10:35 Labs: Abnormal Lab Results - Last 24 Hours (Table) 10/21/21 10/21/21 10/22/21 Range/Units 16:36 20:13 06:13 POC Glucose (mg/dL) 147 H 178 H 112 H (75-99) mg/dL Assessment and Plan Assessment: * 71-year-old female, with history of "7 strokes" in the past, came with 1 week history of increased slurred speech, headache since she suffered from syncopal spell on 10/10/2021. She had another syncopal spell 2 days ago. Patient had questionable transient facial droop noted at the cardiology office. MRI Brain is negative for acute or subacute stroke * Syncopal spells 2. Possibly due to severe aortic stenosis. * Severe Aortic stenosis (per 2D echo) * Left shoulder pain and weakness since fall * Paroxysmal atrial fibrillation currently on eliquis * History of coronary artery disease status post stent * Hypertension * Diabetes (Current HbA1c 7.2) * Hyperlipidemia * Tobacco use Plan: * Patient had a current MRI of the brain was negative for acute or subacute stroke. Also had a routine EEG during this admission and there is no epileptiform not discharges or seizure that is reported. * Currently the patient is on Eliquis 5 mg 1 tablet twice a day. Continue Lipitor 40 mg daily at bedtime for secondary stroke prophylaxis.. * Pending on tilt table test requested by Dr. Srivastava. If unable to be performed as inpatient can be done as outpatient. Severe aortic stenosis can cause syncopal episode and we'll defer the management to the cardiology team. It seems that the patient has history of loop recorder (since 12/2020) with a pacemaker. Pending for device to be interrogate. * If patient continues to have further syncopal spells and it's unknown etiology then recommend long-term EEG and neck could be done as an outpatient. * Cardiology team is on board * Orthopedic team is on board for left shoulder pain * PT, OT and CREW TRUCK DRIVER are consulted * Will Defer the rest of the medical management to the primary team. Next * On discharge recommended the patient follow-up with a neurologist within 2 weeks. The plan is discussed with the patient. Otherwise no further work-up. Ish Kirkpatrick M.D. Neuro-hospitalist Time with Patient: Less than 30
--- NOTE | 2021-10-22 15:56 | P.DS ---
Providers Date of admission: 10/17/21 19:15 Attending physician: Amanda Crowley Consults: 10/17/21 19:06 Consult Physician Routine Consulting Provider: Robert Srivastava Consult Reason/Comments: code stroke Do you want consulting provider notified?: Yes 10/18/21 09:58 Consult Physician Routine Consulting Provider: Delbert Houston Consult Reason/Comments: syncopal episode, code stroke Do you want consulting provider notified?: Yes 10/19/21 10:24 Consult Physician Routine Consulting Provider: Jordin Schrader Consult Reason/Comments: left shoulder pain and trauma Do you want consulting provider notified?: Yes Primary care physician: [facility] Course: This 62-year-old pleasant female, with known history of cold colon cancer 2002, requiring the chemoradiation, aortic stenosis and paroxysmal atrial fibrillation also with history of significant weight loss, at one time she weighed 545 pounds, elective abdominoplasty secondary to pannus and panniculitis, for which Dr. Sierra has performed the procedure 05/23/2021. 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 She also has aortic stenosis, followed by district court justice in [facility] and has a loop recorder. Now seeing cardiology Dr. Houston She presents emergency room, from the office of Dr. Houston, after she had fallen twice in 1 week, her last fall was one day prior to admission. Her PCP is recommended that she see her district court justice, for which she presented to the cardiology office with now new strokelike symptoms, for which she had awakened with severe headache right side, dysarthria, left upper extremity weakness and left facial droop, worsening numbness to the left arm,. She presents with acute CVA, this would be her eighth CVA. She cannot recall any recent medication changes, she is on Coumadin, and with her INR of 1.0, she is subtherapeutic upon ER admission. She takes 5 mg daily, she is unaware whether the newer factor X a inhibition is appropriate for her, or was tried at all. She had no recollection of any HERMINIO done at all, and does not have any cardiac valve replacement In the emergency room, she had CTA of the neck, shows no carotid stenosis, no dissection or aneurysm, or vertebral in ICA system, CT of the brain without contrast for TPA evaluation, shows no acute process, skeletal survey x-ray the patient has fall, falling, there is no acute fractures in the left shoulder, and bilateral hips chest x-ray shows suspected mild pulmonary edema. EKG, shows normal sinus rhythm, without acute ST-T wave changes. Labs shows INR of 1.0, liver function tests is okay except for alkaline phosphatase slightly elevated, ALT 39, blood sugar is 92-109, creatinine 0.63 Hemoglobin 14.2, WBC count normal at 9. Patient is admitted for acute CVA, with a simple left upper extremity weakness, dysarthria, facial droop, with NIH score of 5, not a candidate for TPA as she is outside of the window for TPA regimen. Consult with neurology, and cardiology. Start aspirin, and statins 10/19: Patient continues to have speech difficulty and also complaining of pain in the left shoulder secondary to recent fall. We will assess for orthopedic evaluation of the left shoulder pain. Patient has been seen by neurology recommended switching Coumadin 2 eliquis and tilt table test to evaluate syncopal episodes. Cardiology is also following and recommends switching Coumadin 2 eliquis. Patient is currently on Coumadin for anticoagulation and we will start eliquis this morning. INR today is 1.0. CBC is unremarkable. Blood sugars are running between 123 and 192. MRI of the brain revealed no evidence of recent infarct. No suspicious findings . EEG revealed normal awake and drowsy EEG. Echocardiogram reveals EF of 60-65%, borderline concentric left hypertrophy, mild aortic valve sclerosis, mild to moderate aortic regurgitation, severe aort ic stenosis with gradient 78.19 mmHg. Trace to mild mitral regurgitation, mild mitral stenosis, mild tricuspid regurgitation, mild pulmonary hypertension. RVSP 40.09 mmHg. Discharge planning is for subacute rehab at [facility] on Thursday. 10/20: Patient has been seen by orthopedics with noted weakness in the rotator cuff muscles and no recommendations for any urgent intervention at this time. Patient can follow-up in the outpatient setting and arm sling was ordered. Patient has been afebrile, heart rate 59, blood pressure 134/64, pulse ox 96% on 2 L nasal cannula. Capillary blood glucose running between 93 and 151. Patient has been started on eliquis as of yesterday. Discharge plan is for subacute rehab tomorrow. 10/21: She has been reassessed by neurology with recommendations that eliquis is sufficient and baby aspirin not necessary, continue Lipitor. There is talk of having a tilt table test. If patient has further syncopal spells would recommend long-term EEG as an outpatient. Patient follow-up with neurologist in 2 weeks. She has been afebrile, heart rate in the 50s and 60s, blood pressure 137/63, pulse ox 94% on room air. She has been evaluated by physical therapy and occupational therapy, ambulated well in the hallway and is cleared for discharge home. 10/22 patient was examined at bedtime. Patient was cleared by neurology and cardiology. Patient has a loop recorder that needs to be interrogated. Patient's symptoms are likely secondary to aortic stenosis and need for valve replacement. Patient to follow with the district court justice outpatient for valve replacement DISCHARGE DIAGNOSES 1. Syncopal secondary to aortic stenosis Acute CVA has been ruled out by MRI, 2. Paroxysmal atrial fibrillation. 3. Diabetes mellitus type 2, A1c 7.2. 4. CAD, with heart stents in the past. 5. History of colon cancer with history of colostomy with reversal 6. History of a loop recorder, pacemaker, most of the records were at [facility] 7. Elective panniculectomy, performed by Dr. Sierra 05/22/2021, 8. COVID-19 testing negative. Patient has been hospitalized during a pandemic. DISCHARGE PLAN Home with [facility]. Greater than 35 minutes was utilized and coordinating patient's discharge. Patient Condition at Discharge: Good Plan - Discharge Summary Discharge Rx Participant: No New Discharge Prescriptions: New Acetaminophen Tab [Tylenol] 650 mg PO Q6HR PRN tab PRN Reason: Fever And/ Or Pain Apixaban [Eliquis] 5 mg PO BID #60 tab Atorvastatin [Lipitor] 40 mg PO HS #30 tablet Continue metFORMIN HCL [Glucophage] 1,000 mg PO BID Albuterol Nebulized [Ventolin Nebulized] 2.5 mg INHALATION RT-QID PRN PRN Reason: Shortness Of Breath Multivit-Min/Iron/Folic/Lutein [Centrum Silver Women Tablet] 1 tab PO BID Albuterol Inhaler [Ventolin Hfa Inhaler] 2 puff INHALATION RT-QID PRN PRN Reason: Shortness Of Breath Sertraline [Zoloft] 50 mg PO DAILY Discontinued Warfarin [Coumadin] 5 mg PO HS Discharge Medication List metFORMIN HCL [Glucophage] 1,000 mg PO BID 05/16/21 [History] Albuterol Inhaler [Ventolin Hfa Inhaler] 2 puff INHALATION RT-QID PRN 10/17/21 [History] Albuterol Nebulized [Ventolin Nebulized] 2.5 mg INHALATION RT-QID PRN 10/17/21 [History] Multivit-Min/Iron/Folic/Lutein [Centrum Silver Women Tablet] 1 tab PO BID 10/17/21 [History] Sertraline [Zoloft] 50 mg PO DAILY 10/18/21 [History] Acetaminophen Tab [Tylenol] 650 mg PO Q6HR PRN tab 10/20/21 [Rx] Apixaban [Eliquis] 5 mg PO BID #60 tab 10/21/21 [Rx] Atorvastatin [Lipitor] 40 mg PO HS #30 tablet 10/21/21 [Rx] Follow up Appointment(s)/Referral(s): [facility], [NON-STAFF] - Jordin Schrader DO [Doctor of Osteopathic Medicine] - 2 Weeks Delbert Houston MD [STAFF PHYSICIAN] - 1 Week Zhang Holguin MD [Primary Care Provider] - 1 Week (After discharge from subacute rehab) Activity/Diet/Wound Care/Special Instructions: Eliquis 47.00/ month Discharge Disposition: HOME WITH HOME HEALTH SERVICES
--- NOTE | 2021-10-22 16:37 | P.PN ---
Subjective Progress Note Date: 10/22/21 This 62-year-old pleasant female, with known history of cold colon cancer 2002, requiring the chemoradiation, aortic stenosis and paroxysmal atrial fibrillation also with history of significant weight loss, at one time she weighed 545 pounds, elective abdominoplasty secondary to pannus and panniculitis, for which Dr. Sierra has performed the procedure 05/23/2021. 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 She also has aortic stenosis, followed by teller head in [facility] and has a loop recorder. Now seeing cardiology Dr. Houston She presents emergency room, from the office of Dr. Houston, after she had fallen twice in 1 week, her last fall was one day prior to admission. Her PCP is recommended that she see her teller head, for which she presented to the cardiology office with now new strokelike symptoms, for which she had awakened with severe headache right side, dysarthria, left upper extremity weakness and left facial droop, worsening numbness to the left arm,. She presents with acute CVA, this would be her eighth CVA. She cannot recall any recent medication changes, she is on Coumadin, and with her INR of 1.0, she is subtherapeutic upon ER admission. She takes 5 mg daily, she is unaware whether the newer factor X a inhibition is appropriate for her, or was tried at all. She had no recollection of any HERMINIO done at all, and does not have any cardiac valve replacement In the emergency room, she had CTA of the neck, shows no carotid stenosis, no dissection or aneurysm, or vertebral in ICA system, CT of the brain without contrast for TPA evaluation, shows no acute process, skeletal survey x-ray the patient has fall, falling, there is no acute fractures in the left shoulder, and bilateral hips chest x-ray shows suspected mild pulmonary edema. EKG, shows normal sinus rhythm, without acute ST-T wave changes. Labs shows INR of 1.0, liver function tests is okay except for alkaline phosphatase slightly elevated, ALT 39, blood sugar is 92-109, creatinine 0.63 Hemoglobin 14.2, WBC count normal at 9. Patient is admitted for acute CVA, with a simple left upper extremity weakness, dysarthria, facial droop, with NIH score of 5, not a candidate for TPA as she is outside of the window for TPA regimen. Consult with neurology, and cardiology. Start aspirin, and statins 10/19: Patient continues to have speech difficulty and also complaining of pain in the left shoulder secondary to recent fall. We will assess for orthopedic evaluation of the left shoulder pain. Patient has been seen by neurology recom mended switching Coumadin 2 eliquis and tilt table test to evaluate syncopal episodes. Cardiology is also following and recommends switching Coumadin 2 eliquis. Patient is currently on Coumadin for anticoagulation and we will start eliquis this morning. INR today is 1.0. CBC is unremarkable. Blood sugars are running between 123 and 192. MRI of the brain revealed no evidence of recent infarct. No suspicious findings. EEG revealed normal awake and drowsy EEG. Echocardiogram reveals EF of 60-65%, borderline concentric left hypertrophy, mild aortic valve sclerosis, mild to moderate aortic regurgitation, severe aortic stenosis with gradient 78.19 mmHg. Trace to mild mitral regurgitation, m ild mitral stenosis, mild tricuspid regurgitation, mild pulmonary hypertension. RVSP 40.09 mmHg. Discharge planning is for subacute rehab at [facility] on Thursday. 10/20: Patient has been seen by orthopedics with noted weakness in the rotator cuff muscles and no recommendations for any urgent intervention at this time. Patient can follow-up in the outpatient setting and arm sling was ordered. Patient has been afebrile, heart rate 59, blood pressure 134/64, pulse ox 96% on 2 L nasal cannula. Capillary blood glucose running between 93 and 151. Patient has been started on eliquis as of yesterday. Discharge plan is for subacute rehab tomorrow. 10/21: She has been reassessed by neurology with recommendations that eliquis is sufficient and baby aspirin not necessary, continue Lipitor. There is talk of having a tilt table test. If patient has further syncopal spells would recommend long-term EEG as an outpatient. Patient follow-up with neurologist in 2 weeks. She has been afebrile, heart rate in the 50s and 60s, blood pressure 137/63, pulse ox 94% on room air. She has been evaluated by physical therapy and occupational therapy, ambulated well in the hallway and is cleared for discharge home. 10/22 patient was examined at bedtime. Patient was cleared by neurology and cardiology. Patient has a loop recorder that needs to be interrogated. Patient's symptoms are likely secondary to aortic stenosis and need for valve replacement. Patient to follow with the teller head outpatient for valve replacement. Since loop recorder was interrogated late in the evening and cardiology would not be able to provide the results by tomorrow morning patient will stay another night REVIEW OF SYSTEMS Constitutional: No fever, no chills, no night sweats. No weight change. No weakness, fatigue or lethargy. No daytime sleepiness. EENT: Reported headache. No blurred vision or double vision, no loss of vision. No loss of Hearing, no ringing in the ears, no dizziness. No nasal drainage or congestion. No epistaxis. No sore throat. Lungs: No shortness of breath, cough, no sputum production. No wheezing. Cardiovascular: No chest pain, no lower extremity edema. No palpitations. No paroxysmal nocturnal dyspnea. No orthopnea. No lightheadedness or dizziness. No syncopal episodes. Abdominal: No abdominal pain. No nausea, vomiting. No diarrhea. No constipation. No bloody or tarry stools. No loss of appetite. Genitourinary: No dysuria, no increased frequency, no urgency. No urinary retention. Musculoskeletal: No myalgias. No muscle weakness, no gait dysfunction, no frequent falls. No back pain. No neck pain. Left shoulder pain. Integumentary: No wounds, no lesions. No rash or pruritus. No unusual bruising. No change in hair or nails. Neurologic: No aphasia. Noted slurred speech. No facial droop. No change in mentation. No head injury. No headache. No paralysis. No paresthesia. Psychiatric: No depression. No anxiety. No mood swings. Endocrine: Noted abnormal blood sugars. No weight change. No excessive sweating or thirst. No cold intolerance. PHYSICAL EXAMINATION Gen: This is a 71-year-old female. She is resting in bed appears to be comfortable and in no acute distress HEENT: Head is atraumatic, normocephalic. Pupils equal, round. Sclerae is anicteric. NECK: Supple. No JVD. No lymphadenopathy. No thyromegaly. LUNGS: Clear to auscultation. No wheezes or rhonchi. No intercostal retractions. HEART: Regular rate and rhythm. No murmur. ABDOMEN: Soft. Bowel sounds are present. No masses. No tenderness. EXTREMITIES: No pedal edema. No calf tenderness. NEUROLOGICAL: Patient is awake, alert and oriented x3. Noted slurring and slow speech, left sided weakness. ASSESSMENT AND PLAN 1. Acute CVA has been ruled out by MRI, presenting on nondominant left paresis upper extremity dysarthria, and left facial droop. Continue eliquis 5 mg twice daily, continue aspirin 81 mg daily, atorvastatin 80 mg at bedtime. Neurology consult appreciated 2. Paroxysmal atrial fibrillation History of long-term anticoagulation, secondary to atrial fibrillation, has 8th CVAs related to atrial fibrillation, no history of PE. Cardiology to determine if HERMINIO evaluation is necessary. Coumadin will be discontinued and patient started on eliquis fibril grams twice daily. Cardiology and neurology consults appreciated. 3. Diabetes mellitus type 2, on metformin restart check A1c, NovoLog scale before meals and bedtime 4. CAD, with heart stents in the past, cardiology consult. 5. History of colon cancer with history of colostomy with reversal 6. History of a loop recorder, pacemaker, most of the records were at [facility] 7 GI prophylaxis eliquis 8. DVT prophylaxis, IV Protonix 9. Elective panniculectomy, performed by Dr. Sierra 05/22/2021, 8. COVID-19 testing negative. Patient has been hospitalized during a pandemic. DISCHARGE PLAN Patient has chosen home with homecare for disposition Objective - Vital Signs Vital signs: Vital Signs Temp 96.9 F L 10/22/21 15:51 Pulse 76 10/22/21 15:51 Resp 16 10/22/21 15:51 BP 105/54 10/22/21 15:51 Pulse Ox 96 10/22/21 15:51 Intake & Output 10/21/21 10/22/21 10/22/21 18:59 06:59 18:59 Intake Total 1390 240 480 Balance 1390 240 480 Weight 87.9 kg Intake: IV 10 Invasive Line 2 10 Oral 1380 240 480 Other: Voiding Method Toilet # Voids 1 3 - Labs CBC & Chem 7: 10/19/21 10:35 10/19/21 10:35 Labs: Abnormal Lab Results - Last 24 Hours (Table) 10/21/21 10/21/21 10/22/21 Range/Units 16:36 20:13 06:13 POC Glucose (mg/dL) 147 H 178 H 112 H (75-99) mg/dL
[2021-10-22 17:07] LABS: Glucose,Whole Blood 138 mg/dL (75-99)
[2021-10-22 19:57] LABS: Glucose,Whole Blood 165 mg/dL (75-99)
[2021-10-22] MEDS: ATORVASTATIN 40 MG TAB PO SCH (20:03)
[2021-10-22] MEDS: ACETAMINOPHEN TAB 325 MG TAB PO PRN (20:04)
[2021-10-23 06:02] LABS: Glucose,Whole Blood 88 mg/dL (75-99)
[2021-10-23] MEDS: INSULIN ASPART (NovoLOG) 100 UNIT/ML VIAL SQ SCH ×2 (06:08→11:36)
[2021-10-23] MEDS: PANTOPRAZOLE 40 MG TABLET PO SCH (06:17)
[2021-10-23] MEDS: SERTRALINE 50 MG TAB PO SCH (08:49)
[2021-10-23] MEDS: APIXABAN 5 MG TAB PO SCH (08:50)
[2021-10-23] MEDS: metFORMIN 500 MG TAB PO SCH (08:50)
[2021-10-23] MEDS: ACETAMINOPHEN TAB 325 MG TAB PO PRN (08:50)
[2021-10-23] MEDS: MULTIVITAMINS, THERA 1 EACH TAB PO SCH (08:50)
[2021-10-23 11:29] LABS: Glucose,Whole Blood 135 mg/dL (75-99)
[2021-10-23 11:49] VITALS: BP 114/55; PULSE 64; RESP 16; TEMP 98.5
[2021-10-23 13:50] VITALS: BMI 30.8
--- NOTE | 2021-10-23 13:57 | P.PN ---
Subjective Progress Note Date: 10/23/21 HISTORY OF PRESENT ILLNESS: This 71-year-old female who is admitted to the hospital secondary to syncope and possible CVA. Patient examined at the bedside. He denies chest pain or p ressure. She denies shortness of breath. Denies dizziness or lightheadedness. She states she has been up ambulating in the hallway. No further syncopal episodes since coming to the hospital. Telemetry reveals sinus mechanism. She is anticoagulated with Eliquis. 10/22/2021 Patient examined this morning at the bedside. Patient denies chest pain or pressure. Denies shortness of breath. No further syncopal episodes since coming to the hospital. Telemetry reveals sinus mechanism. No arrhythmias noted. She remains on Eliquis for anticoagulation. Vital signs stable. 10/23/2021 Patient examined this morning at the bedside. Patient denies chest pain or pressure. Denies shortness of breath. No further syncopal episodes since coming to the hospital. Telemetry reveals sinus mechanism. No arrhythmias noted. She remains on Eliquis for anticoagulation. Vital signs stable. Loop recorder interrogation reviewed with no events noted. PHYSICAL EXAM: VITAL SIGNS: Reviewed. GENERAL: Well-developed in no acute distress. NECK: Supple. No JVD or thyromegaly LUNGS: Respirations even and unlabored. Lungs essentially clear to auscultation bilaterally. HEART: Regular rate and rhythm. S1 and S2 heard. Systolic murmur noted. EXTREMITIES: Normal range of motion. No clubbing or cyanosis. Peripheral pulses intact. No lower extremity edema ASSESSMENT: Possible CVA, ruled out per MRI and CT Recurrent syncopal episodes Severe aortic stenosis Paroxysmal atrial fibrillation Coronary artery disease with previous PCI History of colon cancer Diabetes PLAN: Continue current cardiac medications Patient is stable for discharge home today She is to follow up outpatient with Dr. Houston Nurse practitioner note has been reviewed by physician. Signing provider agrees with the documented findings, assessment, and plan of care. Objective - Vital Signs Vital signs: Vital Signs Temp 98.5 F 10/23/21 11:48 Pulse 64 10/23/21 11:48 Resp 16 10/23/21 11:48 BP 114/55 10/23/21 11:48 Pulse Ox 97 10/23/21 11:48 Intake & Output 10/22/21 10/23/21 10/23/21 18:59 06:59 18:59 Intake Total 960 480 358 Balance 960 480 358 Weight 86.6 kg 86.6 kg Intake: Oral 960 480 358 Other: Voiding Method Toilet Toilet # Voids 3 1 2 - Labs CBC & Chem 7: 10/19/21 10:35 10/19/21 10:35 Labs: Abnormal Lab Results - Last 24 Hours (Table) 10/22/21 10/22/21 10/23/21 Range/Units 17:00 19:54 11:28 POC Glucose (mg/dL) 138 H 165 H 135 H (75-99) mg/dL
--- NOTE | 2021-10-23 17:05 | P.PN ---
Subjective Progress Note Date: 10/23/21 Patient is seen at bedside and she feels she is doing better. She feels her speech is more clear and her strength is improving. She denies of any further passing out episode since her current admission. Objective - Vital Signs Vital signs: Vital Signs Temp 97.8 F 10/23/21 08:45 Pulse 66 10/23/21 08:45 Resp 17 10/23/21 08:45 BP 109/52 10/23/21 08:45 Pulse Ox 98 10/23/21 08:45 Intake & Output 10/22/21 10/23/21 10/23/21 18:59 06:59 18:59 Intake Total 960 480 118 Balance 960 480 118 Weight 86.6 kg Intake: Oral 960 480 118 Other: Voiding Method Toilet Toilet # Voids 3 1 - Exam GENERAL: The patient is lying in bed and is not in acute distress. NEUROLOGICAL: Higher mental function: The patient is awake, alert, oriented to self, place and time. Patient is following commands. Has clear speech. No aphasia or neglect. Cranial nerves: The pupils are round, equal and reactive to light and accommodation. Visual whitehead are full to confrontation throughout. Extraocular movement is intact no nystagmus is noted. Facial sensation is normal to touch throughout. The facial strength is normal throughout. Tongue is midline and moved [id number] without any difficulty. No dysarthria is noted. Shoulder shrug is normal bilaterally. Motor: The strength is left upper forearm extension is 4+ to 5-. Otherwise 5 over 5 throughout. Normal tone and bulk. WORK-UP: * Lipid panel: Triglyceride is 135, cholesterol is 181, LDL is 108 and HDL is 45 at. * Hemoglobin A1c 7.2 * Martines virus was not detected. * MRI of the brain was performed today, which was negative for any acute ischemic stroke. No suspicious findings are evident. * EEG was performed, which was normal awake and drowsy EEG. No focal, lateralized or epileptiform activity was seen. Study was technically limited due to frequent myogenic activity seen in the bitemporal region. * CTA of head and neck was negative for any acute findings. No aneurysms or s tenosis. * Computed tomography scan of head was negative * 2-D echo was reported as borderline concentric left ventricular hypertrophy. Ejection fraction of 60-65%. Mild to moderate aortic regurgitation. Severe aortic stenosis present. Normal left atrial size by volume. - Labs CBC & Chem 7: 10/19/21 10:35 10/19/21 10:35 Labs: Abnormal Lab Results - Last 24 Hours (Table) 10/22/21 10/22/21 10/23/21 Range/Units 17:00 19:54 11:28 POC Glucose (mg/dL) 138 H 165 H 135 H (75-99) mg/dL Assessment and Plan Assessment: * 71-year-old female, with history of "7 strokes" in the past, came with 1 week history of increased slurred speech, headache since she suffered from syncopal spell on 10/10/2021. She had another syncopal spell 2 days ago. Patient had questionable transient facial droop noted at the cardiology office. MRI Brain is negative for acute or subacute stroke * Syncopal spells 2. Possibly due to severe aortic stenosis. * Severe Aortic stenosis (per 2D echo) * Left shoulder pain and weakness since fall * Paroxysmal atrial fibrillation currently on eliquis * History of coronary artery disease status post stent * Hypertension * Diabetes (Current HbA1c 7.2) * Hyperlipidemia * Tobacco use Plan: * Patient had a current MRI of the brain was negative for acute or subacute stroke. Also had a routine EEG during this admission and there is no epileptiform not discharges or seizure that is reported. * Currently the patient is on Eliquis 5 mg 1 tablet twice a day. Continue Lipitor 40 mg daily at bedtime for secondary stroke prophylaxis.. * Tilt table test requested by Dr. Srivastava will likely be performed as outpatient. Severe aortic stenosis can cause syncopal episode and we'll defer the management to the cardiology team. It seems that the patient has history of loop recorder (since 12/2020) with a pacemaker. Device to be interrogate: per cardiology no events. * If patient continues to have further syncopal spells and it's unknown etiology then recommend long-term EEG and neck could be done as an outpatient. * Cardiology team is on board * Orthopedic team is on board for left shoulder pain * PT, OT and CHARGEMASTER ANALYST are consulted * Will Defer the rest of the medical management to the primary team. Next * On discharge recommended the patient follow-up with a neurologist within 2 weeks. The plan is discussed with the patient. Otherwise no further work-up. Ish Kirkpatrick M.D. Neuro-hospitalist Time with Patient: Less than 30
== END 2021-10-23 16:06 | disposition home health service (06) | DRG 307 ==
LOC: EC 16:42 → 3SCARD 19:15
PROVIDERS: ADMIT Family Medicine; ATTEND Family Medicine
DX: I08.3 Combined rheumatic disorders of mitral, aortic and tricuspid valves (principal); I69.354 Hemiplegia and hemiparesis following cerebral infarction affecting left non-dominant side; E11.41 Type 2 diabetes mellitus with diabetic mononeuropathy; E78.5 Hyperlipidemia, unspecified; F17.210 Nicotine dependence, cigarettes, uncomplicated; F32.A Depression, unspecified; G25.81 Restless legs syndrome; I10 Essential (primary) hypertension; I25.10 Atherosclerotic heart disease of native coronary artery without angina pectoris; I48.0 Paroxysmal atrial fibrillation; J44.9 Chronic obstructive pulmonary disease, unspecified; R47.1 Dysarthria and anarthria; R53.1 Weakness; R29.6 Repeated falls; R29.705 NIHSS score 5; R29.810 Facial weakness; R79.1 Abnormal coagulation profile; W19.XXXA Unspecified fall, initial encounter; Z20.822 Contact with and (suspected) exposure to COVID-19; Z96.642 Presence of left artificial hip joint; M25.512 Pain in left shoulder; Z79.01 Long term (current) use of anticoagulants; Z79.82 Long term (current) use of aspirin; Z79.84 Long term (current) use of oral hypoglycemic drugs; Z79.899 Other long term (current) drug therapy; Z80.8 Family history of malignant neoplasm of other organs or systems; Z82.49 Family history of ischemic heart disease and other diseases of the circulatory system; Z83.3 Family history of diabetes mellitus; Z85.038 Personal history of other malignant neoplasm of large intestine; Z85.41 Personal history of malignant neoplasm of cervix uteri; Z90.710 Acquired absence of both cervix and uterus; Z92.21 Personal history of antineoplastic chemotherapy; Z92.3 Personal history of irradiation; Z95.5 Presence of coronary angioplasty implant and graft; Z88.0 Allergy status to penicillin; Z91.040 Latex allergy status; Z88.2 Allergy status to sulfonamides; Z88.1 Allergy status to other antibiotic agents
CPT/HCPCS: 36415; 70450; 70496; 70498; 70553; 71046; 73521; 80053; 80061; 83036; 84484; 85025; 85610; 85730; 87635; 93005; 93306; 94640; 95816; 99285

== ENCOUNTER 2022-01-16 16:32 | Inpatient (IN) | payer MEDICARE ==
[2022-01-16 17:31] LABS: INR 0.9 (<1.2); Partial Thromboplastin Time 26.2 sec (22.0-30.0); Prothrombin Time 10.2 sec (9.0-12.0)
[2022-01-16 17:32] LABS: Basophils % (A) 1 %; Eosinophils # (A) 0.1 k/uL (0-0.7); Eosinophils % (A) 1 %; HCT 43.4 % (34.0-46.0); Lymphocytes # (A) 2.2 k/uL (1.0-4.8); Lymphocytes % (A) 26 %; MCH 35.2 pg (25.0-35.0); MCHC 34.5 g/dL (31.0-37.0); MCV 102.1 fL (80.0-100.0); Macrocytosis Slight; Mean Platelet Volume 7.9; Monocytes # (A) 0.4 k/uL (0-1.0); Monocytes % (A) 5 %; Neutrophils # (A) 5.5 k/uL (1.3-7.7); Neutrophils % (A) 65 %; Platelet Count 240 k/uL (150-450); RBC 4.25 m/uL (3.80-5.40); RDW 13.3 % (11.5-15.5); WBC 8.5 k/uL (3.8-10.6)
[2022-01-16 17:34] LABS: ALT 19 U/L (4-34); AST 27 U/L (14-36); African American GFR (CKD) >90 (>60 ml/min/1.73 sqM); Albumin 4.1 g/dL (3.5-5.0); Alkaline Phosphatase 127 U/L (38-126); Anion Gap 10 mmol/L; Blood Urea Nitrogen 21 mg/dL (7-17); Calcium 8.9 mg/dL (8.4-10.2); Carbon Dioxide 21 mmol/L (22-30); Chloride 105 mmol/L (98-107); Glucose 169 mg/dL (74-99); Non-African American GFR(CKD) 89 (>60 ml/min/1.73 sqM); Potassium 3.9 mmol/L (3.5-5.1); Sodium 136 mmol/L (137-145); Total Bilirubin 0.9 mg/dL (0.2-1.3); Total Protein 7.4 g/dL (6.3-8.2)
[2022-01-16 17:42] LABS: Glucose,Whole Blood 147 mg/dL (75-99)
[2022-01-16] MEDS ORDERED: NITROGLYCERIN SL TABS 0.4 MG TAB SUBLINGUAL STA (18:02)
--- NOTE | 2022-01-16 18:04 | CT ---
EXAMINATION TYPE: CT brain wo con for TPA CT DLP: 1077.8 mGycm, Automated exposure control for dose reduction was used. DATE OF EXAM: 01/16/2022 5:21 PM COMPARISON: Prior CT Brain from 10/17/2021. CLINICAL INDICATION:Female, 71 years old with history of Neuro deficit, acute, stroke suspected, Alte red mental status. TECHNIQUE: Brain: Multiple axial CT images of the brain were obtained without IV contrast. FINDINGS: Brain: Extra-axial spaces: No abnormal extra-axial fluid collections. Ventricular system: Within normal limits Cerebral parenchyma: No acute intraparenchymal hemorrhage or mass effect. The stacy-white junction is well differentiated. Cerebellum: Unremarkable. Mass effect: No evidence of midline shift. Intracranial vasculature: Atherosclerotic calcifications of the intracranial vessels. Soft tissues: Normal. Calvarium/osseous structures: No depressed skull fracture. Paranasal sinuses and mastoid air cells: Mild scattered paranasal sinus disease. Visualized orbits: Bilateral aphakia IMPRESSION: No acute intracranial process.
--- NOTE | 2022-01-16 18:07 | CT ---
EXAMINATION TYPE: CT angio head neck CT DLP: 524.2 mGycm, Automated exposure control for dose reduction was used. DATE OF EXAM: 01/16/2022 5:33 PM COMPARISON: CT head same day. CLINICAL INDICATION:Female, 71 years old with history of Neuro deficit, acute, stroke suspected, Alte red mental status. TECHNIQUE: Axially acquired helical CT angiogram of the head and neck was obtained with contrast util izing 75 cc of Isovue-370 administered intravenously. Axial images are supplemented with 3D reconstru ctions which were post-processed at an independent workstation. NASCET criteria used. FINDINGS: CTA HEAD: No evidence of acute intracranial hemorrhage, mass effect, or midline shift. The ventricles, sulci, a nd cisterns are unremarkable. The visualized portions of the internal carotid arteries, middle cerebral arteries, anterior cerebral arteries, and posterior cerebral arteries are patent. The basilar and vertebral arteries are patent. CTA NECK: Right Carotid System: The common carotid artery and external carotid artery are patent. The carotid bifurcation demonstrate s mild atherosclerotic plaquing without evidence of hemodynamically significant stenosis. The remaini ng portions of the internal carotid artery demonstrate normal size without significant narrowing. Left Carotid System: The common carotid artery and external carotid artery are patent. The carotid bifurcation demonstrate s mild atherosclerotic plaquing without evidence of hemodynamically significant stenosis. The remaini ng portions of the internal carotid artery demonstrate normal size without significant narrowing. Vertebral arteries are patent without evidence hemodynamically significant stenosis. There is a three-vessel aortic arch. The origins of the great vessels are patent. No evidence of hemo dynamically significant stenosis. Moderate emphysema changes are seen within the lung apices. IMPRESSION: 1. No evidence of dissection of the cervical internal carotid arteries or vertebral arteries or any e vidence of significant stenosis at the carotid bifurcations. 2. No evidence of high-grade stenosis or intracranial aneurysm. 3. COPD changes.
[2022-01-16] MEDS ORDERED: ASPIRIN 325 MG TAB PO STA (18:09)
[2022-01-16] MEDS ORDERED: PROCHLORPERAZINE INJ 10 MG/2 ML VIAL IVP STA (18:42)
[2022-01-16] MEDS ORDERED: SODIUM CHLORIDE 0.9% 1,000 ML IV STA (18:42)
[2022-01-16] MEDS ORDERED: diphenhydrAMINE 50 MG/ML 1 ML VIAL IVP STA (18:42)
[2022-01-16] MEDS ORDERED: KETOROLAC 15 MG/ML 1 ML VIAL IVP STA (18:42)
--- NOTE | 2022-01-16 19:41 | ED ---
General Adult HPI - General Chief complaint: Chest Pain Stated complaint: possible stroke, chest pain, headache Time Seen by Provider: 01/16/22 16:45 Source: patient, RN notes reviewed, old records reviewed Mode of arrival: ambulatory Limitations: no limitations - History of Present Illness Initial comments: Patient is a 71-year-old female with past medical history remarkable for atrial fibrillation on, hypertension, GERD who presents received Department complaining of blurry vision out of the right eye, as well as difficulty finding the right words. This started approximately 11 AM this morning. I'm evaluating her over for and half hours later. She states she initially went to her PCP who instructed her to come here for evaluation. These are primary complaints at this time. States that at that time, she also is having some chest pain, which has since mostly resolved. Describes it as a tight belt around her chest pressure sensation. No shortness of breath. No nausea or vomiting. No abdominal pain. No other acute complaints at this time. She states she has a small headache. Describes it as general also has attempted but around her head. His no other acute complaints at this time. Denies any lower extremity edema or swelling. No weakness or numbness. Presents over concern for possible stroke. One speak with her, she does appear to be having difficulty finding the correct words and has expressive aphasia. - Related Data Home Medications Medication Instructions Recorded Confirmed metFORMIN HCL [Glucophage] 1,000 mg PO BID 05/16/21 01/16/22 Albuterol Inhaler [Ventolin Hfa 2 puff INHALATION RT-QID PRN 10/17/21 01/16/22 Inhaler] Albuterol Nebulized [Ventolin 2.5 mg INHALATION RT-QID PRN 10/17/21 01/16/22 Nebulized] Multivit-Min/Iron/Folic/Lutein 1 tab PO BID 10/17/21 01/16/22 [Centrum Silver Women Tablet] Sertraline [Zoloft] 50 mg PO DAILY 10/18/21 01/16/22 Insulin NPH Human Isophane 30 units SQ DAILY 01/16/22 01/16/22 [NovoLIN N] Insulin NPH Human Isophane 35 units SQ HS 01/16/22 01/16/22 [NovoLIN N] Omeprazole [PriLOSEC] 20 mg PO BID 03/03/22 03/03/22 Previous Rx's Medication Instructions Recorded Acetaminophen Tab [Tylenol] 650 mg PO Q6HR PRN tab 10/20/21 Apixaban [Eliquis] 5 mg PO BID #60 tab 10/21/21 Atorvastatin [Lipitor] 40 mg PO HS #30 tablet 10/21/21 Allergies Allergy/AdvReac Type Severity Reaction Status Date / Time bee venom protein (honey bee) Allergy Anaphylaxis Verified 01/16/22 19:08 cephalexin [From Keflex] Allergy Rash/Hives Verified 01/16/22 19:08 latex Allergy Rash/Hives Verified 01/16/22 19:08 Penicillins Allergy Swelling Verified 01/16/22 19:08 Sulfa (Sulfonamide Allergy Unknown Verified 01/16/22 19:08 Antibiotics) Review of Systems ROS Statement: Those systems with pertinent positive or pertinent negative responses have been documented in the HPI. ROS Other: All systems not noted in ROS Statement are negative. Past Medical History Past Medical History: Cancer, CVA/TIA, Diabetes Mellitus, GERD/Reflux, Hyperlipidemia, Hypertension, Sleep Apnea/CPAP/BIPAP Additional Past Medical History / Comment(s): states 7 strokes, states left foot drop, and wears an AFO, hx of cervical CA, and colon CA 2002, had chemo and radiation, restless leg, neuropathy tr legs, rash under abdominal flap, states has had weight loss, at one time weighed 545lbs History of Any Multi-Drug Resistant Organisms: None Reported Past Surgical History: Bowel Resection, Heart Catheterization With Stent, Hernia Repair, Hysterectomy, Joint Replacement, Pacemaker Additional Past Surgical History / Comment(s): hx of colostomy, and then reversal, tr cataract sx, left hip replaced, states had 5 hernia repairs with mesh Past Anesthesia/Blood Transfusion Reactions: No Reported Reaction Date of Last Stent Placement:: 2013 Type of Cardiac Device: Permanent Pacemaker Device Placement Date:: 12/23/20 Past Psychological History: Depression Smoking Status: Former smoker Past Alcohol Use History: None Reported Past Drug Use History: Marijuana - Past Family History Brother(s) Family Medical History: Cancer Sister(s) History Unknown: Yes Daughter(s) History Unknown: Yes Son(s) Family Medical History: No Reported History Father Family Medical History: Cancer, Coronary Artery Disease (CAD), Diabetes Mellitus Mother Family Medical History: Coronary Artery Disease (CAD), CVA/TIA, Diabetes Mellitus General Exam - General Exam Comments Initial Comments: General: Appears in no acute distress. HEAD: Normal with no signs of head trauma. EYES: PERRLA, EOMI, conjunctiva normal, no discharge. Pupils are 3 mm and equal bilaterally. Visual acuity appears to be intact. Patient is reduced peripheral vision out of the right eye in the lateral whitehead. Several right hemianopsia isolated to the right eye. ENT: Hearing grossly intact, normal oropharynx. RESPIRATORY: Clear breath sounds bilaterally. No wheezes, rales, or rhonchi. C/V: Regular rate and rhythm. S1 and S2 auscultated, no edema, peripheral pulses 2+ and intact throughout ABD: Abd is soft, nontender, nondistended EXT: Normal range of motion, no obvious deformity SKIN: No rashes or lesions observed on exposed skin. NEURO: Alert and oriented x 4. Cranial nerves II-XII intact. No focal sensory or strength deficits. NIH is approximate 2 for expressive aphasia as well as her partial hemianopsia. GCS is 15. Limitations: no limitations Course Vital Signs 01/16/22 01/16/22 01/16/22 16:35 17:03 17:10 Temperature 97.3 F L 98.2 F Pulse Rate 74 73 74 Respiratory 16 14 14 Rate Blood Pressure 170/78 161/84 163/77 O2 Sat by Pulse 99 94 L Oximetry 01/16/22 01/16/22 18:39 20:39 Temperature Pulse Rate 76 80 Respiratory 14 18 Rate Blood Pressure 153/62 136/58 O2 Sat by Pulse 95 90 L Oximetry Procedures - [place] Protocol (Time Out) Nurse: Norma Delgado Medical Decision Making - Medical Decision Making Based on the patient's presentation and physical exam, I'm concerned for an acute stroke. Patient's chest pain, possible cardiopulmonary etiology at this time either. Therefore we will obtain a stroke workup. [facility] pager was activated. She is not a TPA candidate as symptoms started over 4-1/2 hours ago. Patient was in agreement with this plan. Neuro interventional as was contacted. CT imaging revealed no acute intracranial process including CT angiography of the brain. Patient will be admitted for medical management. On reevaluation, patient's symptoms have resolved. Aphasia is gone as is the patient's hemianopsia. She states her chest pain is approximately 3 out of 10 at this time. She will be administered additional nitroglycerin tablets states that improves her chest pain. She was in agreement this plan. She was also given aspirin. On reevaluation, patient's chest pain is, per the patient resolved. She states it is no longer noticeable. EKG revealed no acute ischemic changes. Chest x- ray revealed no acute cardio pulmonary process. Laboratory studies are remarkable for a elevated troponin of 0.132. Remainder of the labs are unremarkable. On reevaluation, patient remains resting comfortably in bed. She was giving medications for a small headache following the nitroglycerin tablet. I discussed the findings with her. Would like to admit her for telemetry monitoring. She was in agreement this plan. The patient does take a blood thinner medication, and the patient was a stroke pager activation, and appears to have an NSTEMI, this concern over starting a heparin drip. I spoke with the neurologist on-call, Dr. Kirkpatrick who agreed with the workup, and stated that only use heparin if needed, and no heparin boluses. Goal PTT is 45-60. I spoke with cardiology Dr. Larkin regarding this, and as the patient received Eliquis this morning as her home medication, he was in agreement with holding a heparin drip at this time. He also instructed me to hold Eliquis at this time. We'll trend her troponins. They will evaluate the patient the morning. I discussed this with the patient. She remains asymptomatic at this time. Patient will therefore be admitted and serous condition for stroke monitoring and cardiac monitoring. Patient was originally extremely admitted under Dr. Salomon Holguin. Patient is actually Dr. Zhang Holguin patient admits to [facility]. I will correct the admission. On reevaluation, patient's troponin did increased 0.320. Patient remains symptom-free with no chest pain on my evaluation. Repeat EKG in unchanged, no acute ischemia. I discussed the admission with Dr. Armstrong who requested an Echo. - Lab Data Result diagrams: 01/16/22 17:13 01/16/22 17:13 Lab Results 01/16/22 01/16/22 01/16/22 Range/Units 17:13 17:13 17:13 WBC 8.5 (3.8-10.6) k/uL RBC 4.25 (3.80-5.40) m/uL Hgb 15.0 (11.4-16.0) gm/dL Hct 43.4 (34.0-46.0) % MCV 102.1 H (80.0-100.0) fL MCH 35.2 H (25.0-35.0) pg MCHC 34.5 (31.0-37.0) g/dL RDW 13.3 (11.5-15.5) % Plt Count 240 (150-450) k/uL MPV 7.9 Neutrophils % 65 % Lymphocytes % 26 % Monocytes % 5 % Eosinophils % 1 % Basophils % 1 % Neutrophils # 5.5 (1.3-7.7) k/uL Lymphocytes # 2.2 (1.0-4.8) k/uL Monocytes # 0.4 (0-1.0) k/uL Eosinophils # 0.1 (0-0.7) k/uL Basophils # 0.0 (0-0.2) k/uL Macrocytosis Slight PT 10.2 (9.0-12.0) sec INR 0.9 (<1.2) APTT 26.2 (22.0-30.0) sec Sodium 136 L (137-145) mmol/L Potassium 3.9 (3.5-5.1) mmol/L Chloride 105 (98-107) mmol/L Carbon Dioxide 21 L (22-30) mmol/L Anion Gap 10 mmol/L BUN 21 H (7-17) mg/dL Creatinine 0.69 (0.52-1.04) mg/dL Est GFR (CKD-EPI)AfAm >90 (>60 ml/min/1.73 sqM) Est GFR (CKD-EPI)NonAf 89 (>60 ml/min/1.73 sqM) Glucose 169 H (74-99) mg/dL POC Glucose (mg/dL) (75-99) mg/dL POC Glu Electron Gun Inspector ID Calcium 8.9 (8.4-10.2) mg/dL Total Bilirubin 0.9 (0.2-1.3) mg/dL AST 27 (14-36) U/L ALT 19 (4-34) U/L Alkaline Phosphatase 127 H (38-126) U/L Troponin I (0.000-0.034) ng/mL Total Protein 7.4 (6.3-8.2) g/dL Albumin 4.1 (3.5-5.0) g/dL 01/16/22 01/16/22 Range/Units 17:13 17:40 WBC (3.8-10.6) k/uL RBC (3.80-5.40) m/uL Hgb (11.4-16.0) gm/dL Hct (34.0-46.0) % MCV (80.0-100.0) fL MCH (25.0-35.0) pg MCHC (31.0-37.0) g/dL RDW (11.5-15.5) % Plt Count (150-450) k/uL MPV Neutrophils % % Lymphocytes % % Monocytes % % Eosinophils % % Basophils % % Neutrophils # (1.3-7.7) k/uL Lymphocytes # (1.0-4.8) k/uL Monocytes # (0-1.0) k/uL Eosinophils # (0-0.7) k/uL Basophils # (0-0.2) k/uL Macrocytosis PT (9.0-12.0) sec INR (<1.2) APTT (22.0-30.0) sec Sodium (137-145) mmol/L Potassium (3.5-5.1) mmol/L Chloride (98-107) mmol/L Carbon Dioxide (22-30) mmol/L Anion Gap mmol/L BUN (7-17) mg/dL Creatinine (0.52-1.04) mg/dL Est GFR (CKD-EPI)AfAm (>60 ml/min/1.73 sqM) Est GFR (CKD-EPI)NonAf (>60 ml/min/1.73 sqM) Glucose (74-99) mg/dL POC Glucose (mg/dL) 147 H (75-99) mg/dL POC Glu Electron Gun Inspector KATHIE Trish Elias Calcium (8.4-10.2) mg/dL Total Bilirubin (0.2-1.3) mg/dL AST (14-36) U/L ALT (4-34) U/L Alkaline Phosphatase (38-126) U/L Troponin I 0.132 H* (0.000-0.034) ng/mL Total Protein (6.3-8.2) g/dL Albumin (3.5-5.0) g/dL - EKG Data -: EKG Interpreted by Me EKG Comments: 12-lead Electrocardiogram Interpretation Note EKG was reviewed and interpreted by myself. 12-lead ECG performed at 1646 is interpreted by me as revealing normal sinus rhythm at a rate of 78 beats per minute. [place]ie is normal. [place] interval is 110 ms, QRS duration is 98 milliseconds, QTc is 429 ms.. There were no ST or T wave abnormalities to suggest myocardial ischemia or injury. R wave progression across the precordium was satisfactory. By my interpretation this EKG is non-diagnostic for acute ischemia. repeat EKG was obtained. 12-lead Electrocardiogram Interpretation Note EKG was reviewed and interpreted by myself. 12-lead ECG performed at 2224 is interpreted by me as revealing normal sinus rhythm at a rate of 63 beats per minute. Venetie is normal. [place] interval is 144 ms, QRS durations 102 ms, QTc is 430 ms.. There were no ST or T wave abnormalities to suggest myocardial ischemia or injury. R wave progression across the precordium was satisfactory. By my interpretation this EKG is non-diagnostic for acute ischemia. No acute changes Disposition Clinical Impression: TIA (transient ischemic attack), NSTEMI (non-ST elevated myocardial infarction) Disposition: ADMITTED IP TO THIS HOSP Condition: Serious
--- NOTE | 2022-01-16 20:17 | XR ---
EXAMINATION TYPE: XR chest 2V DATE OF EXAM: 01/16/2022 7:31 PM COMPARISON: 10/17/2021 TECHNIQUE: XR chest 2V Frontal and lateral views of the chest. CLINICAL INDICATION:Female, 71 years old with history of altered mental status; FINDINGS: Lungs/Pleura: There is no evidence of pleural effusion, focal consolidation, or pneumothorax. Pulmonary vascularity: Unremarkable. Heart/mediastinum: Cardiomediastinal silhouette is unremarkable. A loop recorder projects over the le ft thorax over the heart. Musculoskeletal: No acute osseous pathology. IMPRESSION: No acute cardiopulmonary disease/process.
[2022-01-16] MEDS: metFORMIN 500 MG TAB PO SCH (23:05)
[2022-01-16] MEDS: ATORVASTATIN 40 MG TAB PO SCH (23:06)
[2022-01-16] MEDS: PANTOPRAZOLE 40 MG TABLET PO SCH (23:06)
[2022-01-16] MEDS: INSULIN NPH 300 UNIT/3 ML VIAL SQ SCH (23:06)
[2022-01-16 23:08] LABS: Glucose,Whole Blood 182 mg/dL (75-99)
[2022-01-17 06:15] LABS: Glucose,Whole Blood 103 mg/dL (75-99)
[2022-01-17] MEDS: INSULIN NPH 300 UNIT/3 ML VIAL SQ SCH ×2 (09:11→21:14)
[2022-01-17] MEDS: metFORMIN 500 MG TAB PO SCH ×2 (09:11→21:14)
[2022-01-17] MEDS: PANTOPRAZOLE 40 MG TABLET PO SCH ×2 (09:35→21:14)
[2022-01-17] MEDS: SERTRALINE 50 MG TAB PO SCH (09:35)
--- NOTE | 2022-01-17 10:00 | ECHOF ---
Referral Reason:limited echo. stroke MEASUREMENTS -------- HEIGHT: 167.6 cm WEIGHT: 86.6 kg BP: 120/60 IVSd: 1.8 cm (0.6 - 1.1) LVIDd: 3.8 cm (3.9 - 5.3) LVPWd: 1.9 cm (0.6 - 1.1) IVSs: 2.0 cm LVIDs: 2.4 cm LVPWs: 1.9 cm MV E Logan: 1.18 m/s MV DecT: 340 ms MV A Logan: 1.32 m/s MV E/A Ratio: 0.89 AV maxP.68 mmHg AV meanP.19 mmHg AR PHT: 466 ms FINDINGS -------- Sinus rhythm. This was a technically difficult study with suboptimal apical views. The left ventricular size is normal. There is severe concentric left ventricular hypertrophy. Ove rall left ventricular systolic function is normal with, an EF between 55 - 60 %. 5.0mg of Lumason was utilized for enhancement of images There is moderate aortic regurgitation. There is severe aortic stenosis present. The maximum [place] across the aortic valve is 4.76m/s. Peak/mean gradient across the Aortic Valve is 90.68mmHg / 54.19mmHg. Moderate mitral annular calcification present. Moderate mitral regurgitation is present. There is no pericardial effusion. CONCLUSIONS -------- 1. The left ventricular size is normal. 2. There is severe concentric left ventricular hypertrophy. 3. Overall left ventricular systolic function is normal with, an EF between 55 - 60 %. 4. There is moderate aortic regurgitation. 5. There is severe aortic stenosis present. 6. The maximum velocity across the aortic valve is 4.76m/s. 7. Peak/mean gradient across the Aortic Valve is 90.68mmHg / 54.19mmHg. 8. Moderate mitral annular calcification present. 9. Moderate mitral regurgitation is present. ESTATE PLANNING COUNSELOR: Kenyatta Cooper RDCS
--- NOTE | 2022-01-17 11:32 | P.CNNES ---
History of Present Illness Consult date: 01/17/22 Requesting physician: Gonzalez Braswell Reason for Consult: TIA History of Present Illness: This is a 71-year-old woman with history of multiple "TIA's", severe aortic stenosis, syncopal spells 2 likely due to severe aortic stenosis, coronary artery disease status post stent, hypertension, diabetes mellitus, hyperlipide nga, tobacco use, Paroxysmal atrial fibrillation on Eliquis who presented to the emergency department on 01/16/2022 complaining of blurry vision, word finding difficulties. Patient's symptoms began on 01/16/2022 approximately 11 AM and then she initially went to her PCP which he instructed her to go and evaluated the by the ED. She also complained of chest pain which is resolved. In the ED was felt the patient had expressive aphasia. She states she does not have any further word finding difficulty but has diplopia of both eye and feels side to side. She denies of any focal weakness or numbness. She has chronic weakness on left side and some numbness on left lower extremity from old stroke. Patient is on Eliquis 5 mg twice a day, Lipitor former gram daily at bedtime, Mirapex, Zoloft, albuterol, metformin. Of note patient was seen by our neurology team and last seen by our team on 12/24/2020 by myself and watch she had slurred speech headache from syncopal episode on 10/10/2021 and had another syncopal episode and questionable transient facial droop noted at the cardiology office. The MRI was negative for acute subacute stroke. She had an EEG and there is no seizure or epileptiform activity. Tilt table test was recommended by Dr. Meek but it was a then later recommended by our team to get as an outpatient. She had interrogation of her device and there is no events. I felt her syncopal episodes were possibly due to her severe aortic stenosis seen on the 2-D echo. Please review our notes for further details. Some of the workup in the hospital consisted of Initial blood pressure is 170/78, heart rate of 74, temperature of 97.3, respiratory was 16. MCV is 102.1 otherwise the rest of 5 CBC with differential is unremarkable Chemistry panel is initial serum glucose is 169 otherwise the rest of the chemistry panel seems unremarkable. Patient initial troponins up 0.13 then 0.320 and was trending up. PT, PTT and INR is within normal limits CT of the head is reported as no acute intracranial process. I personally reviewed the CT of the head and there is no acute or subacute ischemia and there is no department will hemorrhage. CT angiography of the head and neck was reported as no evidence of dissection of the cervical internal carotid arteries or vertebral artery or any evidence of significant stenosis at the carotid bifurcation. No evidence of high-grade stenosis or intracranial aneurysm. COPD changes. The ED team spoke with me regarding the patient's yesterday and the use of heparin drip and I notified them that if its needed then to pursue with heparin drip but to avoid any boluses and to keep the PTT between 45 and 60. I also notified the ED team that to discuss with the patient that there is a possible risk of a bleed with use heparin drip since a stroke cannot be ruled out. He symptoms resolved in the ED. Stroke pager was activated no TPA since that she is outside the window for a half hours and the risk of bleed the benefits. Review of Systems Review of system: The 12 point system was reviewed and apparent positive and negative per HPI. Past Medical History Past Medical History: Cancer, CVA/TIA, Diabetes Mellitus, GERD/Reflux, Hyperlipidemia, Hypertension, Sleep Apnea/CPAP/BIPAP Additional Past Medical History / Comment(s): states 7 strokes, states left foot drop, and wears an AFO, hx of cervical CA, and colon CA 2002, had chemo and radiation, restless leg, neuropathy tr legs, rash under abdominal flap, states has had weight loss, at one time weighed 545lbs History of Any Multi-Drug Resistant Organisms: None Reported Past Surgical History: Bowel Resection, Heart Catheterization With Stent, Hernia Repair, Hysterectomy, Joint Replacement, Pacemaker Additional Past Surgical History / Comment(s): hx of colostomy, and then reversa l, tr cataract sx, left hip replaced, states had 5 hernia repairs with mesh Past Anesthesia/Blood Transfusion Reactions: No Reported Reaction Date of Last Stent Placement:: 2013 Type of Cardiac Device: Permanent Pacemaker Device Placement Date:: 12/23/20 Past Psychological History: Depression Smoking Status: Former smoker Past Alcohol Use History: None Reported Additional Past Alcohol Use History / Comment(s): smokes 1ppd, has smoked up to 3ppd in past Past Drug Use History: Marijuana Additional Drug Use History / Comment(s): occasional use, instructed to hold 24 hrs - Past Family History Brother(s) Family Medical History: Cancer Sister(s) History Unknown: Yes Daughter(s) History Unknown: Yes Son(s) Family Medical History: No Reported History Father Family Medical History: Cancer, Coronary Artery Disease (CAD), Diabetes Mellitus Mother Family Medical History: Coronary Artery Disease (CAD), CVA/TIA, Diabetes Mellitus Medications and Allergies Home Medications Medication Instructions Recorded Confirmed Type metFORMIN HCL [Glucophage] 1,000 mg PO BID 05/16/21 01/16/22 History Albuterol Inhaler [Ventolin Hfa 2 puff INHALATION RT-QID PRN 10/17/21 01/16/22 History Inhaler] Albuterol Nebulized [Ventolin 2.5 mg INHALATION RT-QID PRN 10/17/21 01/16/22 History Nebulized] Multivit-Min/Iron/Folic/Lutein 1 tab PO BID 10/17/21 01/16/22 History [Centrum Silver Women Tablet] Sertraline [Zoloft] 50 mg PO DAILY 10/18/21 01/16/22 History Acetaminophen Tab [Tylenol] 650 mg PO Q6HR PRN tab 10/20/21 01/16/22 Rx Apixaban [Eliquis] 5 mg PO BID #60 tab 10/21/21 01/16/22 Rx Atorvastatin [Lipitor] 40 mg PO HS #30 tablet 10/21/21 01/16/22 Rx Insulin NPH Human Isophane 30 units SQ DAILY 01/16/22 01/16/22 History [NovoLIN N] Insulin NPH Human Isophane 35 units SQ HS 01/16/22 01/16/22 History [NovoLIN N] Omeprazole [PriLOSEC] 20 mg PO DAILY 01/16/22 01/17/22 History Pramipexole Di-HCl [Mirapex] 0.125 mg PO HS 01/17/22 01/17/22 History Allergies Allergy/AdvReac Type Severity Reaction Status Date / Time bee venom protein (honey bee) Allergy Anaphylaxis Verified 01/16/22 19:08 cephalexin [From Keflex] Allergy Rash/Hives Verified 01/16/22 19:08 latex Allergy Rash/Hives Verified 01/16/22 19:08 Penicillins Allergy Swelling Verified 01/16/22 19:08 Sulfa (Sulfonamide Allergy Unknown Verified 01/16/22 19:08 Antibiotics) Physical Examination - Vital Signs Vital Signs: Vital Signs Temp Pulse Pulse Resp BP BP Pulse Ox 01/17/22 04:00 98 F 68 18 120/60 96 01/16/22 22:44 97.9 F 61 16 131/64 93 L 01/16/22 22:38 98.2 F 80 18 136/58 90 L 01/16/22 20:39 80 18 136/58 90 L 01/16/22 18:39 76 14 153/62 95 01/16/22 17:10 74 14 163/77 94 L 01/16/22 17:03 98.2 F 73 14 161/84 01/16/22 16:35 97.3 F L 74 16 170/78 99 Intake and Output 01/16/22 01/17/22 01/17/22 22:59 06:59 14:59 Intake Total 0 Balance 0 Intake: Oral 0 Other: # Voids 1 0 # Bowel Movements 0 Weight 86.636 kg GENERAL: The patient is lying in bed and is not in acute distress. CHEST: The heart rate is regular rate rhythm. +ve murmurs to auscultation. No carotid bruit bilaterally. LUNG: Clear to auscultation bilaterally no wheezing noted throughout. Not labored breathing. ABDOMEN/GI: Bowel sounds present in all 4 quadrants. No tenderness to palpation throughout. NEUROLOGICAL: Higher mental function: The patient is awake, alert, oriented to self, place and time. Patient is following commands. No aphasia and no neglect. Cranial nerves: The pupils are round, equal and reactive to light and accommodation. Visual whitehead are full to confrontation throughout. Patient had diplopia side to side throughout. Extraocular movement is intact no nystagmus is noted. Facial sensation is normal to touch throughout. The facial strength is normal throughout. Hearing is mildly decreased bilaterally to hand rub. Tongue is midline and moved [id number] without any difficulty. No dysarthria is noted. Shoulder shrug is normal bilaterally. Motor: The strength is 4+ over 5 throughout (old per patient). Normal tone and bulk. Cerebellum: Normal finger to nose heel to martinez bilaterally. Sensation: Sensation is decrease to touch on left lower extremiyt (per patient old). Otherwise normal to touch throughout. Reflexes (right/left): 2+ throughout. Plantars are mute bilaterally. Results - Laboratory Findings CBC and BMP: 01/16/22 17:13 01/16/22 17:13 Abnormal Lab Findings: Abnormal Labs 01/16/22 01/16/22 01/16/22 17:13 17:13 17:13 MCV 102.1 H MCH 35.2 H Sodium 136 L Carbon Dioxide 21 L BUN 21 H Glucose 169 H POC Glucose (mg/dL) Alkaline Phosphatase 127 H Troponin I 0.132 H* 01/16/22 01/16/22 01/16/22 17:40 20:25 23:06 MCV MCH Sodium Carbon Dioxide BUN Glucose POC Glucose (mg/dL) 147 H 182 H Alkaline Phosphatase Troponin I 0.320 H* 01/16/22 01/17/22 23:09 06:13 MCV MCH Sodium Carbon Dioxide BUN Glucose POC Glucose (mg/dL) 103 H Alkaline Phosphatase Troponin I 0.425 H* Assessment and Plan Assessment: Blurry vision (diplopia throughout) and expressive aphasia seems likely TIA and rule out acute ischemic stroke. Patient had reported multiple TIAs in the past and syncopal episodes and I feel her symptoms are possibly due to symptomatic aortic stenosis NSTEMI Severe aortic stenosis per previous 2-D echo Syncopal episode likely due to severe aortic stenosis Proximal A. fib fibrillation on Eliquis Coronary artery disease status post stent Hypertension and during this presentation her blood pressure is elevated Diabetes mellitus Hyperlipidemia Tobacco use Plan: Ordered MRI of the brain without In the ED the patient was given aspirin 325mg once. Eliquis 5 mg 1 tablet twice a day was restarted by the cardiology team and the patient is on Lipitor 40 mg daily at bedtime. As stated earlier use of heparin can be used if needed but avoid any boluses and keep the PTT between 45-60. Hemoglobin A1cand Lipid panel are ordered and is pending PT, OT and [employer] is consulted Continue neuro checks Continue cardiac monitoring We'll defer the management of the aortic stenosis that severe to cardiology team. I spoke with Cardiology attending (Dr. Sean Borges) and notified them that patient has severe aortic stenosis that is reported which is likely cause of her syncope, TIA/stroke episodes. Cardiology team is on board We'll defer the rest of the medical management to the primary team For DVT prophylaxis is on eliquis. The plan was discussed with the patient and her nurse as well cardiology attending. Thank you for the consultation. Ish Kirkpatrick M.D. Neuro-hospitalist Time with Patient: Greater than 30
[2022-01-17 11:55] LABS: Glucose,Whole Blood 214 mg/dL (75-99)
[2022-01-17] MEDS: APIXABAN 5 MG TAB PO SCH ×2 (12:06→21:14)
--- NOTE | 2022-01-17 12:06 | MR ---
MR brain without contrast History: Stroke, aphasia and visual disturbance Correlation to CT brain 01/16/2022 Multiplanar multisequence imaging obtained through the brain FINDINGS: There is motion artifact on the exam There is no restricted diffusion. Scattered hyperintensities are present within the periventricular, subcortical, pericallosal white matter and within the susi on inversion recovery and T2-weighted sequ ences, approximately 20-30 lesions are present, largest lesion in the left frontal white matter on ax ial image 16 measures 6 mm. The cerebellopontine angles, corpus callosum, pituitary, cervical medulla ry junction are normal. The orbits show symmetric appearance. Inflammatory change present in the ethm oid air cells. No hemorrhage or hydrocephalus. Mild inflammatory change present in the mastoid air ce lls on the right. IMPRESSION: Nonspecific white matter demyelination, mild sinus disease as described
[2022-01-17 12:27] LABS: Chol/HDL Ratio 3.93 Ratio; LDL Cholesterol,Calculated 118.3 mg/dL (0.0-131.0)
[2022-01-17] MEDS ORDERED: ALBUTEROL HFA INHALER INHALATION PRN (12:47)
--- NOTE | 2022-01-17 12:53 | P.HPIM ---
History of Present Illness H&P Date: 01/17/22 This 62-year-old pleasant female, with known history of cold colon cancer 2002, requiring the chemoradiation, aortic stenosis and paroxysmal atrial fibrillation also with history of significant weight loss, at one time she weighed 545 pounds, elective abdominoplasty secondary to pannus and panniculitis, for which Dr. Sierra has performed the procedure 05/23/2021. 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 She also has aortic stenosis, followed by rn relief charge in [facility] and has a loop recorder. Now seeing cardiology Dr. Houston last admitted to the hospital in October 2021 for stroke patient was switched from Coumadin to Eliquis during that hospitalization comes in this time with episodes of blurry vision, associated with word finding difficulty that started around 11 AM yesterday. 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 Family noticed that she was not able to speak clearly. She also was unable to see from the corner of her eye. Patient also complaining of severe headache associated with vision changes. Patient states she started noticing chest pain that started the same time describe it as pressure in the center of the chest. Patient went to her primary care physician who directed her to the hospital. When the patient presented to the ER the chest pain had resolved. Patient is not a TPA candidate as the symptoms started more than 4-1/[address] angiogram no evidence of dissection of the cervical internal carotid arteries and vertebral arteries or any evidence of significant stenosis and carotid bifurcation. CT brain was negative for any intracranial process. EKG was negative for ST or T-wave changes. Sinus rhythm with short IL interval noted chest x-ray negative for any acute cardiopulmonary process. Echocardiogram suggested severe concentric left ventricle hypertrophy with ejection fraction 55-60% with moderate aortic regurgitation and severe aortic stenosis moderate mitral regurgitation present. MRI suggestive of nonspecific white matter demyelination with mild sinus disease ROS Constitutional: Denies chills, Denies fever, endorses lethargy, Denies poor appetite, endorses weakness, Denies weight loss Eyes: denies decreased vision, denies diplopia, denies discharge, denies pain Ears: deny: decreased hearing Ears, nose, mouth and throat: Denies dental pain, Denies headache, Denies nasal discharge, Denies nose pain Cardiovascular: endorses chest pain, Denies decreased exercise tolerance, Denies edema, Denies high blood pressure, Denies irregular heart beat, Denies palpitations, Denies paroxysmal nocturnal dyspnea, Denies rapid heart beat, Denies shortness of breath Respiratory: Denies congestion, Denies cough, Denies cough with sputum, Denies dyspnea, Denies home oxygen, Denies wheezing Gastrointestinal: Denies abdominal pain, Denies change in bowel habits, Denies coffee ground emesis, Denies early satiety, Denies excessive gas, Denies heartburn, Denies hematemesis, Denies hematochezia, Denies loss of appetite, Denies nausea, Denies vomiting Genitourinary: Denies dysuria, Denies flank pain, Denies kidney stones, Denies menorrhagia, Denies urgency, Denies urinary frequency Musculoskeletal: Denies gait dysfunction, Denies limitation of motion, Denies morning stiffness, Denies muscle cramps Integumentary: Denies rash, Denies wounds, Denies brittle nails, Denies change in hair/nails, Denies darkening of skin Neurological: Denies balance difficulties, endorses change in speech, endorses double vision, Denies gait dysfunction, endorses loss of vision, endorse motor disturbance, Denies numbness, Denies paralysis, Denies paresthesias, Denies seizures Psychiatric: Denies anxiety, Denies depression Endocrine: Denies excessive sweating, Denies excessive thirst, Denies high blood sugars, Denies palpitations Hematologic/Lymphatic: Denies easy bruising, Denies lymphadenopathy Social history smokes 1ppd, has smoked up to 3ppd in past Family history Brother thyroid cancer Father history of coronary artery disease and diabetes Mother coronary artery disease CAD Physical exam - Constitutional General appearance: cooperative, no acute distress, obese - EENT Eyes: anicteric sclerae, PERRLA, normal appearance hemianopia on the right upper quadrant, diplopia present worse with the right blurry vision ENT: hearing grossly normal - Neck Neck: no lymphadenopathy, normal ROM, no other, no rigidity, no stridor, no thyromegaly - Respiratory Respiratory: bilateral: CTA, negative: diminished, dullness, rales, rhonchi - Cardiovascular Rhythm: regular Heart sounds: normal: S1, S2 Abnormal Heart Sounds: 3+ systolic murmur, no diastolic murmur, no rub, no S3 Gallop, no S4 Gallop, no click, no other - Gastrointestinal General gastrointestinal: normal bowel sounds, soft nontender - Integumentary Integumentary: no rash - Neurologic Neurologic: Right upper quadrant hemianopia, 4+/5 this involves left upper and lower extremity with foot drop evident on the left 5/5 strength on the right No numbness or paresthesia - Musculoskeletal Musculoskeletal: Ataxic gait, strength equal bilaterally - Psychiatric Psychiatric: A&O x's 3, appropriate affect Assessment and plan 1. Acute TIA, with history of CVA expressive APHASIA with hemianopia given 325 mg in ED, ON ELIQUIS 5 MG PO BID , MRI of the brain to be done, physical therapy occupational therapy, neurology and cardiology consultation echocardiogram, no prior HERMINIO is available for review in the hospital. ON ELIQUIS since last hospitalization. 2. Paroxysmal atrial fibrillation on long-term anticoagulation. a loop recorder is in place, unknown HERMINIO evaluation, on eliquis Cardiology consult 3. Acute chest pain with acute troponin elevation, possible sec to severe aortic stenosis on Eliquis continue Lipitor 40 mg daily at bedtime. Cardiology consult placed echo ordered 4. . Diabetes mellitus type 2, continue metformin. Continue NPH 30 units daily and 35 units at bedtime. 5. CAD, with heart stents in the past, 6. History of colon cancer with history of colostomy with reversal 7. History of a loop recorder, pacemaker, most of the records were at [facility] 8 h/o syncope with severe aortic stenoiss . 9 elective panniculectomy, performed by Dr. Sierra 05/22/2021, 10 DVT prophylaxis on Eliquis 11 disposition patient in 1-2 inpatient nights for stabilization Past Medical History Past Medical History: Cancer, CVA/TIA, Diabetes Mellitus, GERD/Reflux, Hyperlipidemia, Hypertension, Sleep Apnea/CPAP/BIPAP Additional Past Medical History / Comment(s): states 7 strokes, states left foot drop, and wears an AFO, hx of cervical CA, and colon CA 2002, had chemo and radiation, restless leg, neuropathy tr legs, rash under abdominal flap, states has had weight loss, at one time weighed 545lbs History of Any Multi-Drug Resistant Organisms: None Reported Past Surgical History: Bowel Resection, Heart Catheterization With Stent, Hernia Repair, Hysterectomy, Joint Replacement, Pacemaker Additional Past Surgical History / Comment(s): hx of colostomy, and then reversal, tr cataract sx, left hip replaced, states had 5 hernia repairs with mesh Past Anesthesia/Blood Transfusion Reactions: No Reported Reaction Date of Last Stent Placement:: 2013 Type of Cardiac Device: Permanent Pacemaker Device Placement Date:: 12/23/20 Past Psychological History: Depression Smoking Status: Former smoker Past Alcohol Use History: None Reported Additional Past Alcohol Use History / Comment(s): smokes 1ppd, has smoked up to 3ppd in past Past Drug Use History: Marijuana Additional Drug Use History / Comment(s): occasional use, instructed to hold 24 hrs - Past Family History Brother(s) Family Medical History: Cancer Sister(s) History Unknown: Yes Daughter(s) History Unknown: Yes Son(s) Family Medical History: No Reported History Father Family Medical History: Cancer, Coronary Artery Disease (CAD), Diabetes Mellitus Mother Family Medical History: Coronary Artery Disease (CAD), CVA/TIA, Diabetes Mellitus Medications and Allergies Home Medications Medication Instructions Recorded Confirmed Type metFORMIN HCL [Glucophage] 1,000 mg PO BID 05/16/21 01/16/22 History Albuterol Inhaler [Ventolin Hfa 2 puff INHALATION RT-QID PRN 10/17/21 01/16/22 History Inhaler] Albuterol Nebulized [Ventolin 2.5 mg INHALATION RT-QID PRN 10/17/21 01/16/22 History Nebulized] Multivit-Min/Iron/Folic/Lutein 1 tab PO BID 10/17/21 01/16/22 History [Centrum Silver Women Tablet] Sertraline [Zoloft] 50 mg PO DAILY 10/18/21 01/16/22 History Acetaminophen Tab [Tylenol] 650 mg PO Q6HR PRN tab 10/20/21 01/16/22 Rx Apixaban [Eliquis] 5 mg PO BID #60 tab 10/21/21 01/16/22 Rx Atorvastatin [Lipitor] 40 mg PO HS #30 tablet 10/21/21 01/16/22 Rx Insulin NPH Human Isophane 30 units SQ DAILY 01/16/22 01/16/22 History [NovoLIN N] Insulin NPH Human Isophane 35 units SQ HS 01/16/22 01/16/22 History [NovoLIN N] Omeprazole [PriLOSEC] 20 mg PO DAILY 01/16/22 01/17/22 History Pramipexole Di-HCl [Mirapex] 0.125 mg PO HS 01/17/22 01/17/22 History Allergies Allergy/AdvReac Type Severity Reaction Status Date / Time bee venom protein (honey bee) Allergy Anaphylaxis Verified 01/16/22 19:08 cephalexin [From Keflex] Allergy Rash/Hives Verified 01/16/22 19:08 latex Allergy Rash/Hives Verified 01/16/22 19:08 Penicillins Allergy Swelling Verified 01/16/22 19:08 Sulfa (Sulfonamide Allergy Unknown Verified 01/16/22 19:08 Antibiotics) Physical Exam Vitals: Vital Signs Temp Pulse Pulse Resp BP BP Pulse Ox 01/17/22 04:00 98 F 68 18 120/60 96 01/16/22 22:44 97.9 F 61 16 131/64 93 L 01/16/22 22:38 98.2 F 80 18 136/58 90 L 01/16/22 20:39 80 18 136/58 90 L 01/16/22 18:39 76 14 153/62 95 01/16/22 17:10 74 14 163/77 94 L 01/16/22 17:03 98.2 F 73 14 161/84 01/16/22 16:35 97.3 F L 74 16 170/78 99 Intake and Output 01/16/22 01/17/22 01/17/22 22:59 06:59 14:59 Intake Total 0 Balance 0 Intake: Oral 0 Other: # Voids 1 0 # Bowel Movements 0 Weight 86.636 kg Results CBC & Chem 7: 01/16/22 17:13 01/16/22 17:13 Labs: Abnormal Lab Results - Last 24 Hours (Table) 01/16/22 01/16/22 01/16/22 Range/Units 17:13 17:13 17:13 MCV 102.1 H (80.0-100.0) fL MCH 35.2 H (25.0-35.0) pg Sodium 136 L (137-145) mmol/L Carbon Dioxide 21 L (22-30) mmol/L BUN 21 H (7-17) mg/dL Glucose 169 H (74-99) mg/dL POC Glucose (mg/dL) (75-99) mg/dL Alkaline Phosphatase 127 H (38-126) U/L Troponin I 0.132 H* (0.000-0.034) ng/mL 01/16/22 01/16/22 01/16/22 Range/Units 17:40 20:25 23:06 MCV (80.0-100.0) fL MCH (25.0-35.0) pg Sodium (137-145) mmol/L Carbon Dioxide (22-30) mmol/L BUN (7-17) mg/dL Glucose (74-99) mg/dL POC Glucose (mg/dL) 147 H 182 H (75-99) mg/dL Alkaline Phosphatase (38-126) U/L Troponin I 0.320 H* (0.000-0.034) ng/mL 01/16/22 01/17/22 Range/Units 23:09 06:13 MCV (80.0-100.0) fL MCH (25.0-35.0) pg Sodium (137-145) mmol/L Carbon Dioxide (22-30) mmol/L BUN (7-17) mg/dL Glucose (74-99) mg/dL POC Glucose (mg/dL) 103 H (75-99) mg/dL Alkaline Phosphatase (38-126) U/L Troponin I 0.425 H* (0.000-0.034) ng/mL Thrombosis Risk Factor Assmnt - Choose All That Apply Each Factor Represents 1 point: Acute DC Each Risk Factor Represents 2 Points: Age 61-74 years Other congenital or acquired thrombophilia - If yes, enter type in comment: No Thrombosis Risk Factor Assessment Total Risk Factor Score: 3 Thrombosis Risk Factor Assessment Level: Moderate Risk
--- NOTE | 2022-01-17 13:03 | P.CRDCN ---
History of Present Illness History of present illness: This is Dr. Borges dictating a consult on this patient The patient was interviewed and examined IMPRESSION / ASSESSMENT: Patient presenting with neurologic symptoms as a less chest discomfort History of atrial fibrillation, compliant with ELIQUIS History of hypertension History of severe aortic stenosis with moderate aortic regurgitation and preserved LV systolic function PLAN: Once the neurologic assessment is complete then we'll pursue further assessment of the aortic valve In the interim continue ELIQUIS HPI Patient presented with neurologic symptoms She was complaining of chest discomfort which resolved she described as a tight parenteral the chest She was having expressive aphasia History of atrial fibrillation hypertension ROS: No fever chills or rigors, no cough, phlegm or expectoration, no nausea, vomiting or diarrhea, no hematuria, dysuria, no musculoskeletal complaints, no strokes or seizures, no skin lesions. EXAMINATION: Normal blood pressure Normal heart rates Murmur REVIEW OF LABS, ECG & MEDICAL DATA Computed tomography scan of the brain did not show any neurologic abnormalities CT angiogram reveals absence of any dissection in the internal carotid arteries or the vertebral arteries No evidence for significant stenosis in the carotids No evidence for high-grade stenosis in the intracranial vessels no aneurysm Twelve-lead EKG shows sinus rhythm normal WI narrow QRS normal ST segments Abnormal troponins in the setting of a CVA/TIA, with completely normal EKG is, 2 serial EKGs Sodium 136, potassium 3.9, BUN 21 and creatinine 0.7 Troponin 0.1, 0.3, 0.4 Past Medical History Past Medical History: Cancer, CVA/TIA, Diabetes Mellitus, GERD/Reflux, Hyperlipidemia, Hypertension, Sleep Apnea/CPAP/BIPAP Additional Past Medical History / Comment(s): states 7 strokes, states left foot drop, and wears an AFO, hx of cervical CA, and colon CA 2002, had chemo and r adiation, restless leg, neuropathy tr legs, rash under abdominal flap, states has had weight loss, at one time weighed 545lbs History of Any Multi-Drug Resistant Organisms: None Reported Past Surgical History: Bowel Resection, Heart Catheterization With Stent, Hernia Repair, Hysterectomy, Joint Replacement, Pacemaker Additional Past Surgical History / Comment(s): hx of colostomy, and then reversal, tr cataract sx, left hip replaced, states had 5 hernia repairs with mesh Past Anesthesia/Blood Transfusion Reactions: No Reported Reaction Date of Last Stent Placement:: 2013 Type of Cardiac Device: Permanent Pacemaker Device Placement Date:: 12/23/20 Past Psychological History: Depression Smoking Status: Former smoker Past Alcohol Use History: None Reported Additional Past Alcohol Use History / Comment(s): smokes 1ppd, has smoked up to 3ppd in past Past Drug Use History: Marijuana Additional Drug Use History / Comment(s): occasional use, instructed to hold 24 hrs - Past Family History Brother(s) Family Medical History: Cancer Sister(s) History Unknown: Yes Daughter(s) History Unknown: Yes Son(s) Family Medical History: No Reported History Father Family Medical History: Cancer, Coronary Artery Disease (CAD), Diabetes Mellitus Mother Family Medical History: Coronary Artery Disease (CAD), CVA/TIA, Diabetes Mellitus Medications and Allergies Home Medications Medication Instructions Recorded Confirmed Type RX: metFORMIN HCL [Glucophage] 1,000 mg PO BID 05/16/21 01/16/22 History RX: Albuterol Inhaler [Ventolin 2 puff INHALATION RT-QID PRN 10/17/21 01/16/22 History Hfa Inhaler] RX: Albuterol Nebulized [Ventolin 2.5 mg INHALATION RT-QID PRN 10/17/21 01/16/22 History Nebulized] RX: Multivit-Min/Iron/Folic/Lutein 1 tab PO BID 10/17/21 01/16/22 History [Centrum Silver Women Tablet] RX: Sertraline [Zoloft] 50 mg PO DAILY 10/18/21 01/16/22 History RX: Acetaminophen Tab [Tylenol] 650 mg PO Q6HR PRN tab 10/20/21 01/16/22 Rx Apixaban [Eliquis] 5 mg PO BID #60 tab 10/21/21 01/16/22 Rx Atorvastatin [Lipitor] 40 mg PO HS #30 tablet 10/21/21 01/16/22 Rx Insulin NPH Human Isophane 30 units SQ DAILY 01/16/22 01/16/22 History [NovoLIN N] Insulin NPH Human Isophane 35 units SQ HS 01/16/22 01/16/22 History [NovoLIN N] Omeprazole [PriLOSEC] 20 mg PO DAILY 01/16/22 01/17/22 History Pramipexole Di-HCl [Mirapex] 0.125 mg PO HS 01/17/22 01/17/22 History Allergies Allergy/AdvReac Type Severity Reaction Status Date / Time bee venom protein (honey bee) Allergy Anaphylaxis Verified 01/16/22 19:08 cephalexin [From Keflex] Allergy Rash/Hives Verified 01/16/22 19:08 latex Allergy Rash/Hives Verified 01/16/22 19:08 Penicillins Allergy Swelling Verified 01/16/22 19:08 Sulfa (Sulfonamide Allergy Unknown Verified 01/16/22 19:08 Antibiotics) Physical Exam Vitals: Vital Signs Temp Pulse Pulse Resp BP BP Pulse Ox 01/17/22 04:00 98 F 68 18 120/60 96 01/16/22 22:44 97.9 F 61 16 131/64 93 L 01/16/22 22:38 98.2 F 80 18 136/58 90 L 01/16/22 20:39 80 18 136/58 90 L 01/16/22 18:39 76 14 153/62 95 01/16/22 17:10 74 14 163/77 94 L 01/16/22 17:03 98.2 F 73 14 161/84 01/16/22 16:35 97.3 F L 74 16 170/78 99 Intake and Output 01/16/22 01/17/22 01/17/22 22:59 06:59 14:59 Intake Total 0 Balance 0 Intake: Oral 0 Other: # Voids 1 0 # Bowel Movements 0 Weight 86.636 kg Results 01/16/22 17:13 01/16/22 17:13 Cardiac Enzymes 01/16/22 01/16/22 01/16/22 Range/Units 17:13 17:13 20:25 AST 27 (14-36) U/L Troponin I 0.132 H* 0.320 H* (0.000-0.034) ng/mL 01/16/22 Range/Units 23:09 AST (14-36) U/L Troponin I 0.425 H* (0.000-0.034) ng/mL Coagulation 01/16/22 Range/Units 17:13 PT 10.2 (9.0-12.0) sec APTT 26.2 (22.0-30.0) sec CBC 01/16/22 Range/Units 17:13 WBC 8.5 (3.8-10.6) k/uL RBC 4.25 (3.80-5.40) m/uL Hgb 15.0 (11.4-16.0) gm/dL Hct 43.4 (34.0-46.0) % Plt Count 240 (150-450) k/uL Comprehensive Metabolic Panel 01/16/22 Range/Units 17:13 Sodium 136 L (137-145) mmol/L Potassium 3.9 (3.5-5.1) mmol/L Chloride 105 (98-107) mmol/L Carbon Dioxide 21 L (22-30) mmol/L BUN 21 H (7-17) mg/dL Creatinine 0.69 (0.52-1.04) mg/dL Glucose 169 H (74-99) mg/dL Calcium 8.9 (8.4-10.2) mg/dL AST 27 (14-36) U/L ALT 19 (4-34) U/L Alkaline Phosphatase 127 H (38-126) U/L Total Protein 7.4 (6.3-8.2) g/dL Albumin 4.1 (3.5-5.0) g/dL Current Medications Generic Name Dose Route Start Last Admin Trade Name Freq PRN Reason Stop Dose Admin Atorvastatin Calcium 40 mg 01/16/22 21:00 01/16/22 23:06 Atorvastatin 40 Mg Tab PO 40 mg HS ALIYAH Administration Insulin Human NPH 30 unit 01/17/22 09:00 Insulin Nph 300 Unit/3 Ml Vial SQ DAILY ALIYAH Insulin Human NPH 35 unit 01/16/22 21:00 01/16/22 23:06 Insulin Nph 300 Unit/3 Ml Vial SQ 35 unit HS ALIYAH Administration Metformin HCl 1,000 mg 01/16/22 21:00 01/16/22 23:05 Metformin 500 Mg Tab PO Not Given BID ALIYAH Pantoprazole Sodium 40 mg 01/16/22 21:00 01/16/22 23:06 Pantoprazole 40 Mg Tablet PO 40 mg BID ALIYAH Administration Sertraline HCl 50 mg 01/17/22 09:00 Sertraline 50 Mg Tab PO DAILY ALIYAH Intake and Output 01/16/22 01/17/22 01/17/22 22:59 06:59 14:59 Intake Total 0 Balance 0 Intake: Oral 0 Other: # Voids 1 0 # Bowel Movements 0 Weight 86.636 kg 01/16/22 17:13 01/16/22 17:13
[2022-01-17 17:00] LABS: Glucose,Whole Blood 96 mg/dL (75-99)
[2022-01-17] MEDS: ACETAMINOPHEN TAB 325 MG TAB PO PRN (18:31)
[2022-01-17 20:17] LABS: Glucose,Whole Blood 119 mg/dL (75-99)
[2022-01-17] MEDS: ATORVASTATIN 40 MG TAB PO SCH (21:14)
[2022-01-17] MEDS: PRAMIPEXOLE 0.125 MG TAB PO SCH (21:14)
[2022-01-18 06:03] LABS: Glucose,Whole Blood 95 mg/dL (75-99)
[2022-01-18] MEDS: PANTOPRAZOLE 40 MG TABLET PO SCH ×2 (08:57→20:27)
[2022-01-18] MEDS: INSULIN NPH 300 UNIT/3 ML VIAL SQ SCH ×2 (08:57→20:27)
[2022-01-18] MEDS: MULTIVITAMINS, THERA 1 EACH TAB PO SCH (08:57)
[2022-01-18] MEDS: APIXABAN 5 MG TAB PO SCH (08:57)
[2022-01-18] MEDS: metFORMIN 500 MG TAB PO SCH ×2 (08:57→20:27)
[2022-01-18] MEDS: SERTRALINE 50 MG TAB PO SCH (08:57)
--- NOTE | 2022-01-18 11:37 | P.PN ---
Subjective Progress Note Date: 01/18/22 This 62-year-old pleasant female, with known history of cold colon cancer 2002, requiring the chemoradiation, aortic stenosis and paroxysmal atrial fibrillation also with history of significant weight loss, at one time she weighed 545 pounds, elective abdominoplasty secondary to pannus and panniculitis, for which Dr. Sierra has performed the procedure 05/23/2021. 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 Now seeing cardiology Dr. Houston last admitted to the hospital in October 2021 for stroke patient was switched from Coumadin to Eliquis during that hospitalization comes in this time with episodes of blurry vision, associated with word finding difficulty that started around 11 AM yesterday. 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 Family noticed that she was not able to speak clearly. She also was unable to see from the corner of her eye. Patient also complaining of severe headache associated with vision changes. Patient states she started noticing chest pain that started the same time describe it as pressure in the center of the chest. Patient went to her primary care physician who directed her to the hospital. When the patient presented to the ER the chest pain had resolved. Patient is not a TPA candidate as the symptoms started more than 4-1/[address] angiogram no evidence of dissection of the cervical internal carotid arteries and vertebral arteries or any evidence of significant stenosis and carotid bifurcation. CT brain was n egative for any intracranial process. EKG was negative for ST or T-wave changes. Sinus rhythm with short NE interval noted chest x-ray negative for any acute cardiopulmonary process. Echocardiogram suggested severe concentric left ventricle hypertrophy with ejection fraction 55-60% with moderate aortic regurgitation and severe aortic stenosis moderate mitral regurgitation present. MRI suggestive of nonspecific white matter demyelination with mild sinus disease 3/5: She is found resting in the chair at this side of the bed. She is in no acute distress. Patient states that she is able to see peripherally better compared to yesterday. Continues to have some black spots in her vision. And some double vision. Overall however her vision has improved. It was discussed that patient will be having procedures done this weekend in preparation for a valve replacement at the beginning of the week. Patient states that her chest pain has been improving. She is feeling better today compared to yesterday. Patient remained afebrile, pulse rate 69, respirations 16 blood pressure 119/69, 98% on room air. ROS Constitutional: Denies chills, Denies fever, endorses lethargy, Denies poor appetite, endorses weakness, Denies weight loss Eyes: denies decreased vision, denies diplopia, denies discharge, denies pain Ears: deny: decreased hearing Ears, nose, mouth and throat: Denies dental pain, Denies headache, Denies nasal discharge, Denies nose pain Cardiovascular: endorses chest pain, Denies decreased exercise tolerance, Denies edema, Denies high blood pressure, Denies irregular heart beat, Denies palpitations, Denies paroxysmal nocturnal dyspnea, Denies rapid heart beat, Denies shortness of breath Respiratory: Denies congestion, Denies cough, Denies cough with sputum, Denies dyspnea, Denies home oxygen, Denies wheezing Gastrointestinal: Denies abdominal pain, Denies change in bowel habits, Denies coffee ground emesis, Denies early satiety, Denies excessive gas, Denies heartburn, Denies hematemesis, Denies hematochezia, Denies loss of appetite, D enies nausea, Denies vomiting Genitourinary: Denies dysuria, Denies flank pain, Denies kidney stones, Denies menorrhagia, Denies urgency, Denies urinary frequency Musculoskeletal: Denies gait dysfunction, Denies limitation of motion, Denies morning stiffness, Denies muscle cramps Integumentary: Denies rash, Denies wounds, Denies brittle nails, Denies change in hair/nails, Denies darkening of skin Neurological: Denies balance difficulties, endorses change in speech, endorses double vision, Denies gait dysfunction, endorses loss of vision, endorse motor disturbance, Denies numbness, Denies paralysis, Denies paresthesias, Denies seizures Psychiatric: Denies anxiety, Denies depression Endocrine: Denies excessive sweating, Denies excessive thirst, Denies high blood sugars, Denies palpitations Hematologic/Lymphatic: Denies easy bruising, Denies lymphadenopathy Physical exam General Appearance: Alert, cooperative, no distress, 71-year-old appears stated age. Examined in the chair at the bedside on 3 . Neck HEENT: Supple, no lymphadenopathy, no thyroid enlargement, no carotid bruits. Eyes: anicteric sclerae, PERRLA, normal appearance hemianopia on the rig ht upper quadrant, diplopia present improved with the right blurry vision Lungs: Clear to auscultation without crackles or wheezes no rhonchi, no deformity. Chest Wall: Chest wall normal expansion with deep inspiration no tenderness and no deformity was found on exam, no costochondral pain or discomfort. Heart: Regular rate and rhythm, S1, S2 normal, 3+ systolic murmur,no diastolic murmur, no rub, no S3 gallop, no S4 gallop, no click Back: Symmetric, no curvature, ROM normal, no CVA tenderness. Abdomen: Soft, non-tender, no rebound or rigidity, no hepatosplenomegaly. Extremities: Ataxic gait, Extremities normal, atraumatic, no cyanosis or edema. Pulses: 2+ and symmetric. Skin: Skin color, texture, tugor normal, no rashes or lesions. Neurologic: Right upper quadrant, and a pole, 4+/ 5 this is both left upper and lower extremity with foot drop evident on the left, 5/5 strength on the right Alert oriented x3 Assessment and plan 1. Acute TIA, with history of CVA expressive APHASIA with hemianopia given 325 mg in ED, ON ELIQUIS 5 MG PO BID , MRI of the brain impression: Nonspecific white matter demyelination, mild sinus disease, physical therapy occupational therapy, neurology and cardiology consultation echocardiogram, no prior HERMINIO is available for review in the hospital. ON ELIQUIS since last hospitalization. Patient will be scheduled for a heart cath and valve replacement this admission. 2. Paroxysmal atrial fibrillation on long-term anticoagulation. a loop recorder is in place, unknown HERMINIO evaluation, on eliquis Cardiology consult 3. Acute chest pain with acute troponin elevation, possible sec to severe aortic stenosis on Eliquis continue Lipitor 40 mg daily at bedtime. Cardiology consult placed echo ordered 4. . Diabetes mellitus type 2, continue metformin. Continue NPH 30 units daily and 35 units at bedtime. 5. CAD, with heart stents in the past, 6. History of colon cancer with history of colostomy with reversal 7. History of a loop recorder, pacemaker, most of the records were at [facility] 8 h/o syncope with severe aortic stenoiss . 9 elective panniculectomy, performed by Dr. Sierra 05/22/2021, 10 DVT prophylaxis on Eliquis 11. GI prophylaxis. Protonix CODE STATUS: Full code Patient be admitted for a minimum 2 nights day Discharge disposition: To be determined Impression and plan of care have been directed as dictated by the signing physician. Abigail Enriquez nurse practitioner acting as scribe for signing physician. Objective - Vital Signs Vital signs: Vital Signs Temp 98.8 F 01/18/22 08:00 Pulse 69 01/18/22 08:00 Resp 16 01/18/22 08:00 BP 119/69 01/18/22 08:00 Pulse Ox 98 01/18/22 08:00 Intake & Output 01/17/22 01/18/22 01/18/22 18:59 06:59 18:59 Intake Total 240 237 240 Balance 240 237 240 Intake: Oral 240 237 240 Other: Voiding Method Toilet Toilet # Voids 1 2 1 # Bowel Movements 0 - Labs CBC & Chem 7: 01/16/22 17:13 01/16/22 17:13 Labs: Abnormal Lab Results - Last 24 Hours (Table) 01/16/22 01/16/22 01/17/22 Range/Units 17:13 17:13 11:53 POC Glucose (mg/dL) 214 H (75-99) mg/dL Hemoglobin A1c 7.5 H (0.0-6.0) % Triglycerides 169.00 H (0.00-149.00) mg/dL Cholesterol 204.00 H (0.00-200.00) mg/dL 01/17/22 Range/Units 20:15 POC Glucose (mg/dL) 119 H (75-99) mg/dL Hemoglobin A1c (0.0-6.0) % Triglycerides (0.00-149.00) mg/dL Cholesterol (0.00-200.00) mg/dL
[2022-01-18 11:51] LABS: Glucose,Whole Blood 92 mg/dL (75-99)
--- NOTE | 2022-01-18 13:04 | P.PN ---
Subjective Progress Note Date: 01/18/22 The patient was interviewed and examined lying comfortably in bed. She's not had any more visual disturbances or dizzy spells since her admission to the hospital. She also denies any chest pain or chest pressure. No shortness of breath. Echocardiogram revealed normal LV function with severe aortic stenosis peak gradient 90 mmHg, mean gradient 54 mmHg GENERAL: Well-appearing, well-nourished and in no acute distress. NECK: Supple without JVD or thyromegaly. LUNGS: Breath sounds clear to auscultation bilaterally. Respiration equal and unlabored. No wheezes, rales or rhonchi. HEART: Regular rate and rhythm. Systolic ejection murmur. No rubs or gallops. S1 and S2 heard. EXTREMITIES: Normal range of motion, no edema. No clubbing or cyanosis. Peripheral pulses intact and strong. VITALS: Blood pressure 135/64, SpO2 95% on room air, pulse 72, respiratory rate 16 TELEMETRY: Sinus mechanism IMPRESSION: Aortic stenosis, severe Visual disturbances, TIA versus hypotension secondary to valve disease Hypertension History of atrial fibrillation, on anticoagulation PLAN: Coronary angiogram in preparation for aortic valve surgery with primary general operations agent on Thursday Hold [facility] 24 hours prior Further recommendations will be based on clinical course I am dictating on behalf of Dr Sean Borges's history/physical and assessment/plan. Objective - Vital Signs Vital signs: Vital Signs Temp 98.8 F 01/18/22 08:00 Pulse 69 01/18/22 08:00 Resp 16 01/18/22 08:00 BP 119/69 01/18/22 08:00 Pulse Ox 98 01/18/22 08:00 Intake & Output 01/17/22 01/18/22 01/18/22 18:59 06:59 18:59 Intake Total 240 237 240 Balance 240 237 240 Intake: Oral 240 237 240 Other: Voiding Method Toilet # Voids 1 2 # Bowel Movements 0 - Labs CBC & Chem 7: 01/16/22 17:13 01/16/22 17:13 Labs: Abnormal Lab Results - Last 24 Hours (Table) 01/16/22 01/16/22 01/17/22 Range/Units 17:13 17:13 11:53 POC Glucose (mg/dL) 214 H (75-99) mg/dL Hemoglobin A1c 7.5 H (0.0-6.0) % Triglycerides 169.00 H (0.00-149.00) mg/dL Cholesterol 204.00 H (0.00-200.00) mg/dL 01/17/22 Range/Units 20:15 POC Glucose (mg/dL) 119 H (75-99) mg/dL Hemoglobin A1c (0.0-6.0) % Triglycerides (0.00-149.00) mg/dL Cholesterol (0.00-200.00) mg/dL
[2022-01-18 16:24] LABS: Glucose,Whole Blood 89 mg/dL (75-99)
[2022-01-18 20:15] LABS: Glucose,Whole Blood 130 mg/dL (75-99)
[2022-01-18] MEDS: ATORVASTATIN 40 MG TAB PO SCH (20:27)
[2022-01-18] MEDS: PRAMIPEXOLE 0.125 MG TAB PO SCH (20:27)
[2022-01-18] MEDS: ACETAMINOPHEN TAB 325 MG TAB PO PRN (22:55)
[2022-01-19 06:13] LABS: Glucose,Whole Blood 100 mg/dL (75-99)
[2022-01-19] MEDS: ALBUTEROL NEBULIZED 2.5 MG/3 ML INHALATION PRN ×3 (07:55→18:56)
[2022-01-19] MEDS: metFORMIN 500 MG TAB PO SCH ×2 (08:28→20:05)
[2022-01-19] MEDS: MULTIVITAMINS, THERA 1 EACH TAB PO SCH (08:28)
[2022-01-19] MEDS: PANTOPRAZOLE 40 MG TABLET PO SCH ×2 (08:28→20:06)
[2022-01-19] MEDS: SERTRALINE 50 MG TAB PO SCH (08:29)
[2022-01-19] MEDS: INSULIN NPH 300 UNIT/3 ML VIAL SQ SCH ×2 (08:30→20:06)
[2022-01-19 11:38] LABS: Glucose,Whole Blood 108 mg/dL (75-99)
--- NOTE | 2022-01-19 11:43 | P.PN ---
Subjective Progress Note Date: 01/19/22 This 62-year-old pleasant female, with known history of cold colon cancer 2002, requiring the chemoradiation, aortic stenosis and paroxysmal atrial fibrillation also with history of significant weight loss, at one time she weighed 545 pounds, elective abdominoplasty secondary to pannus and panniculitis, for which Dr. Sierra has performed the procedure 05/23/2021. 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 She also has aortic stenosis, followed by business office specialist in [facility] and has a loop recorder. Now seeing cardiology Dr. Houston last admitted to the hospital in October 2021 for stroke patient was switched from Coumadin to Eliquis during that hospitalization comes in this time with episodes of blurry vision, associated with word finding difficulty that started around 11 AM yesterday. 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 Family noticed that she was not able to speak clearly. She also was unable to see from the corner of her eye. Patient also complaining of severe headache associated with vision changes. Patient states she started noticing chest pain that started the same time describe it as pressure in the center of the chest. Patient went to her primary care physician who directed her to the hospital. When the patient presented to the ER the chest pain had resolved. Patient is not a TPA candidate as the symptoms started more than 4-1/[address] angiogram no evidence of dissection of the cervical internal carotid arteries and vertebral arteries or any evidence of significant stenosis and carotid bifurcation. CT brain was n egative for any intracranial process. EKG was negative for ST or T-wave changes. Sinus rhythm with short MN interval noted chest x-ray negative for any acute cardiopulmonary process. Echocardiogram suggested severe concentric left ventricle hypertrophy with ejection fraction 55-60% with moderate aortic regurgitation and severe aortic stenosis moderate mitral regurgitation present. MRI suggestive of nonspecific white matter demyelination with mild sinus disease 3/5: She is found resting in the chair at this side of the bed. She is in no acute distress. Patient states that she is able to see peripherally better compared to yesterday. Continues to have some black spots in her vision. And some double vision. Overall however her vision has improved. It was discussed that patient will be having procedures done this weekend in preparation for a valve replacement at the beginning of the week. Patient states that her chest pain has been improving. She is feeling better today compared to yesterday. Patient remained afebrile, pulse rate 69, respirations 16 blood pressure 119/69, 98% on room air. 01/19: Patient is found sitting up in bed in no acute distress. Patient states that she is not been sleeping well because she does not have her CPAP machine. However when her son was bringing it to her he did drop and breaking into 3 pieces. We will attempt to get a CPAP machine for her to utilize in the hospital her setting is 10. Patient's speech has improved it is clear. Patient continues to have some chest pain in the center of her chest. Patient states that her vision is improving. Continues to have diplopia, and depth perception issues. ROS Constitutional: Denies chills, Denies fever, endorses lethargy, Denies poor appetite, endorses weakness, Denies weight loss Eyes: denies decreased vision, denies diplopia, denies discharge, denies pain Ears: deny: decreased hearing Ears, nose, mouth and throat: Denies dental pain, Denies headache, Denies nasal discharge, Denies nose pain Cardiovascular: endorses chest pain, Denies decreased exercise tolerance, Denies edema, Denies high blood pressure, Denies irregular heart beat, Denies pa lpitations, Denies paroxysmal nocturnal dyspnea, Denies rapid heart beat, Denies shortness of breath Respiratory: Denies congestion, Denies cough, Denies cough with sputum, Denies dyspnea, Denies home oxygen, Denies wheezing Gastrointestinal: Denies abdominal pain, Denies change in bowel habits, Denies coffee ground emesis, Denies early satiety, Denies excessive gas, Denies heartburn, Denies hematemesis, Denies hematochezia, Denies loss of appetite, Denies nausea, Denies vomiting Genitourinary: Denies dysuria, Denies flank pain, Denies kidney stones, Denies menorrhagia, Denies urgency, Denies urinary frequency Musculoskeletal: Denies gait dysfunction, Denies limitation of motion, Denies morning stiffness, Denies muscle cramps Integumentary: Denies rash, Denies wounds, Denies brittle nails, Denies change in hair/nails, Denies darkening of skin Neurological: Denies balance difficulties, endorses change in speech, endorses double vision, Denies gait dysfunction, endorses loss of vision, endorse motor disturbance, Denies numbness, Denies paralysis, Denies paresthesias, Denies seizures Psychiatric: Denies anxiety, Denies depression Endocrine: Denies excessive sweating, Denies excessive thirst, Denies high blood sugars, Denies palpitations Hematologic/Lymphatic: Denies easy bruising, Denies lymphadenopathy Physical exam General Appearance: Alert, cooperative, no distress, 71-year-old appears stated age. Examined in the bed on 3 south. Neck HEENT: Supple, no lymphadenopathy, no thyroid enlargement, no carotid bruits. Eyes: anicteric sclerae, PERRLA, normal appearance hemianopia on the right upper quadrant, diplopia present continuing to improve with the right blurry vision Lungs: Clear to auscultation without crackles or wheezes no rhonchi, no def ormity. Chest Wall: Chest wall normal expansion with deep inspiration no tenderness and no deformity was found on exam, no costochondral pain or discomfort. Heart: Regular rate and rhythm, S1, S2 normal, 3+ systolic murmur,no diastolic murmur, no rub, no S3 gallop, no S4 gallop, no click Back: Symmetric, no curvature, ROM normal, no CVA tenderness. Abdomen: Soft, non-tender, no rebound or rigidity, no hepatosplenomegaly. Extremities: Ataxic gait, Extremities normal, atraumatic, no cyanosis or edema. Pulses: 2+ and symmetric. Skin: Skin color, texture, tugor normal, no rashes or lesions. Neurologic: Right upper quadrant, and a pole, 4+/ 5 this is both left upper and lower extremity with foot drop evident on the left, 5/5 strength on the right Alert oriented x3 Assessment and plan 1. Acute TIA, with history of CVA expressive APHASIA with hemianopia given 325 mg in ED, ON ELIQUIS 5 MG PO BID , MRI of the brain impression: Nonspecific white matter demyelination, mild sinus disease, physical therapy occupational therapy, neurology and cardiology consultation echocardiogram, no prior HERMINIO is available for review in the hospital. ON ELIQUIS since last hospitalization. Patient will be scheduled for a heart cath and valve replacement this admission. 2. Paroxysmal atrial fibrillation on long-term anticoagulation. a loop recorder is in place, unknown HERMINIO evaluation, on eliquis Cardiology consult 3. Acute chest pain with acute troponin elevation, possible sec to severe aortic stenosis on Eliquis continue Lipitor 40 mg daily at bedtime. Cardiolog y consult placed echo ordered 4. . Diabetes mellitus type 2, continue metformin. Continue NPH 30 units daily and 35 units at bedtime. 5. CAD, with heart stents in the past, 6. History of colon cancer with history of colostomy with reversal 7. History of a loop recorder, pacemaker, most of the records were at [facility] 8 h/o syncope with severe aortic stenoiss . 9 elective panniculectomy, performed by Dr. Sierra 05/22/2021, 10 DVT prophylaxis on Eliquis 11. GI prophylaxis. Protonix CODE STATUS: Full code Patient be admitted for a minimum 2 nights day Discharge disposition: To be determined Impression and plan of care have been directed as dictated by the signing physician. Abigail Enriquez nurse practitioner acting as scribe for signing physician. Objective - Vital Signs Vital signs: Vital Signs Temp 98.8 F 01/19/22 08:00 Pulse 78 01/19/22 11:30 Resp 16 01/19/22 08:00 BP 134/58 01/19/22 08:00 Pulse Ox 90 L 01/19/22 08:00 Intake & Output 01/18/22 01/19/22 01/19/22 18:59 06:59 18:59 Intake Total 480 480 Balance 480 480 Intake: Oral 480 480 Other: Voiding Method Toilet Toilet # Voids 1 2 - Labs CBC & Chem 7: 01/16/22 17:13 01/16/22 17:13 Labs: Abnormal Lab Results - Last 24 Hours (Table) 01/18/22 01/19/22 01/19/22 Range/Units 20:13 06:09 11:37 POC Glucose (mg/dL) 130 H 100 H 108 H (75-99) mg/dL
--- NOTE | 2022-01-19 12:21 | P.PN ---
Subjective Progress Note Date: 01/19/22 The patient was interviewed and examined lying comfortably in bed. She states she did have a difficult night due to not having her CPAP. She's not had any more visual disturbances or dizzy spells since her admission to the hospital. She also denies any chest pain or chest pressure. No shortness of breath. Echocardiogram revealed normal LV function with severe aortic stenosis peak gradient 90 mmHg, mean gradient 54 mmHg GENERAL: Well-appearing, well-nourished and in no acute distress. NECK: Supple without JVD or thyromegaly. LUNGS: Breath sounds clear to auscultation bilaterally. Respiration equal and unlabored. No wheezes, rales or rhonchi. HEART: Regular rate and rhythm. Systolic ejection murmur. No rubs or gallops. S1 and S2 heard. EXTREMITIES: Normal range of motion, no edema. No clubbing or cyanosis. Peripheral pulses intact and strong. VITALS: Blood pressure 135/58, SpO2 90% on room air, pulse 75, respiratory rate 16, temp 98.8F TELEMETRY: Sinus mechanism. No arrhythmias. IMPRESSION: Aortic stenosis, severe Visual disturbances, TIA versus hypotension secondary to valve disease Hypertension History of atrial fibrillation, on anticoagulation PLAN: Coronary angiogram in preparation for aortic valve surgery with primary cone cleaner on Thursday Hold [facility] today Further recommendations will be based on clinical course I am dictating on behalf of Dr Sean Borges's history/physical and assessment/plan. Objective - Vital Signs Vital signs: Vital Signs Temp 98.8 F 01/19/22 08:00 Pulse 80 01/19/22 08:07 Resp 16 01/19/22 08:00 BP 134/58 01/19/22 08:00 Pulse Ox 90 L 01/19/22 08:00 Intake & Output 01/18/22 01/19/22 01/19/22 18:59 06:59 18:59 Intake Total 480 480 Balance 480 480 Intake: Oral 480 480 Other: Voiding Method Toilet Toilet # Voids 1 2 - Labs CBC & Chem 7: 01/16/22 17:13 01/16/22 17:13 Labs: Abnormal Lab Results - Last 24 Hours (Table) 01/18/22 01/19/22 Range/Units 20:13 06:09 POC Glucose (mg/dL) 130 H 100 H (75-99) mg/dL
--- NOTE | 2022-01-19 12:42 | P.PN ---
Subjective Progress Note Date: 01/19/22 The patient is seen at bedside and feels her diplopia has resolved and denies any new neurological problems. Spoke with the primary team and she is going for angiogram tomorrow regarding her severe aortic stenosis. Objective - Vital Signs Vital signs: Vital Signs Temp 98.8 F 01/19/22 08:00 Pulse 81 01/19/22 12:00 Resp 16 01/19/22 12:00 BP 129/61 01/19/22 12:00 Pulse Ox 94 L 01/19/22 12:00 Intake & Output 01/18/22 01/19/22 01/19/22 18:59 06:59 18:59 Intake Total 480 480 Balance 480 480 Intake: Oral 480 480 Other: Voiding Method Toilet Toilet Toilet # Voids 1 2 - Exam GENERAL: The patient is lying in bed and is not in acute distress. NEUROLOGICAL: Higher mental function: The patient is awake, alert, oriented to self, place and time. Patient is following commands. No aphasia and no neglect. Cranial nerves: The pupils are round, equal and reactive to light and accommodation. Visual whitehead are full to confrontation throughoutExtraocular movement is intact no nystagmus is noted. Facial sensation is normal to touch throughout. The facial strength is normal throughout. Hearing is mildly decreased bilaterally to hand rub. Tongue is midline and moved [id number] without any difficulty. No dysarthria is noted. Shoulder shrug is normal bilaterally. Motor: The strength is 4+ over 5 throughout (old per patient). Normal tone and bulk. Cerebellum: Normal finger to nose heel to martinez bilaterally. Sensation: Sensation is decrease to touch on left lower extremiyt (per patient old). Otherwise normal to touch throughout. Reflexes (right/left): 2+ throughout. Plantars are mute bilaterally. WORK-UP: Limited 2-D echo was reported as severe concentric left ventricular hypertrophy. Moderate aortic regurgitation. Severe aortic stenosis present. Moderate mitral regurgitation. CT of the head is reported as no acute intracranial process. I personally reviewed the CT of the head and there is no acute or subacute ischemia and there is no department will hemorrhage. CT angiography of the head and neck was reported as no evidence of dissection of the cervical internal carotid arteries or vertebral artery or any evidence of significant stenosis at the carotid bifurcation. No evidence of high-grade stenosis or intracranial aneurysm. COPD changes. MRI the brain is reported as nonspecific white matter demyelination, mild sinus disease and. - Labs CBC & Chem 7: 01/16/22 17:13 01/16/22 17:13 Labs: Abnormal Lab Results - Last 24 Hours (Table) 01/18/22 01/19/22 01/19/22 Range/Units 20:13 06:09 11:37 POC Glucose (mg/dL) 130 H 100 H 108 H (75-99) mg/dL Assessment and Plan Assessment: TIA (diplopia throughout and expressive aphasia) Patient had reported multiple TIAs in the past and syncopal episodes and I feel her symptoms are possibly due to symptomatic aortic stenosis. MRI Brain is negative for stroke. NSTEMI Severe aortic stenosis Syncopal episode likely due to severe aortic stenosis Proximal A. fib fibrillation on Eliquis Coronary artery disease status post stent Hypertension and during this presentation her blood pressure is elevated Diabetes mellitus Hyperlipidemia Tobacco use Plan: Eliquis 5 mg 1 tablet twice a day is held for angio for tomorrow for aortic stenosis. Recommend placing her on ASA 325mg in the mean time but will defer to cardiology team. On Lipitor 40 mg daily at bedtime. PT, OT and JOINER HELPER is consulted Continue neuro checks Continue cardiac monitoring We'll defer the management of the aortic stenosis that severe to cardiology team. I spoke with Cardiology attending (Dr. Sean Borges) and notified them that patient has severe aortic stenosis that is reported which is likely cause of her recurrent syncope, TIA/stroke episodes. Cardiology team is on board We'll defer the rest of the medical management to the primary team For DVT prophylaxis: Was on eliquis but is being held. Recommend SCD in mean time. The plan was discussed with the patient and her primary team. There is no further neurological work-up. Neurology will sign off. Please reconsult if needed. Ish Kirkpatrick M.D. Neuro-hospitalist Time with Patient: Less than 30
[2022-01-19 16:45] LABS: Glucose,Whole Blood 132 mg/dL (75-99)
[2022-01-19 19:19] LABS: Glucose,Whole Blood 180 mg/dL (75-99)
[2022-01-19] MEDS ORDERED: ALPRAZolam 0.25 MG TAB PO PRN (19:53)
[2022-01-19] MEDS: PRAMIPEXOLE 0.125 MG TAB PO SCH (20:05)
[2022-01-19] MEDS: ATORVASTATIN 40 MG TAB PO SCH (20:05)
[2022-01-19] MEDS: ACETAMINOPHEN TAB 325 MG TAB PO PRN (20:17)
[2022-01-20 06:08] LABS: Glucose,Whole Blood 131 mg/dL (75-99)
[2022-01-20] MEDS ORDERED: IV FLUID CONTINUATION 1,000 ML IV ONE (10:31)
[2022-01-20] MEDS ORDERED: LIDOCAINE 1% INJ 10MG/ML (20 ML MDV) SQ ONE (10:41)
[2022-01-20] MEDS ORDERED: fentaNYL (PF) 50 MCG/ML 2 ML AMP IV ONE (10:42)
[2022-01-20] MEDS: MIDAZOLAM 2 MG/2 ML VIAL IV ONE ×2 (10:42→10:44)
[2022-01-20] MEDS ORDERED: HEPARIN SODIUM 1,000 UN/ML (10ML VL) IV ONE (10:48)
[2022-01-20] MEDS ORDERED: IOPAMIDOL-370 125ML BTL INJ ONE (11:07)
[2022-01-20] MEDS ORDERED: RX INFO: IV CONTRAST WAS GIVEN 1 EACH MISC MISCELLANE PRN (11:38)
[2022-01-20 11:51] LABS: Glucose,Whole Blood 101 mg/dL (75-99)
--- NOTE | 2022-01-20 11:53 | CC ---
CARDIAC CATHETERIZATION REPORT INDICATION: Aortic stenosis. PROCEDURE NOTE: After obtaining informed consent, left heart catheterization and coronary angiogram were performed via the right radial artery using size 4 Amador catheters right coronary artery and to obtain the left ventricular hemodynamics, and a 3.5 Amador catheter to engage the left coronary artery. Patient tolerated the procedure well without any obvious immediate complications. A TR band was used for hemostasis per standard protocol at the end of the procedure. Using a micropuncture needle, right radial artery access was obtained and catheters and wires were floated into the ascending aorta under fluoroscopic guidance. Patient received 5 mg of verapamil and 5000 units of IV heparin as per protocol. Total sedation time was minutes. FINDINGS: HEMODYNAMICS: Left ventricular end-diastolic pressure is 4 mm. The gradient across the aortic valve was 40 mm, consistent with severe aortic stenosis. ANGIOGRAPHIC DATA: Right coronary artery. Right coronary artery is a codominant vessel that shows mild nonobstructive coronary artery disease. Left main coronary artery is a normal-sized vessel and is free of stenosis. It divides into left anterior descending coronary artery and circumflex coronary artery. Circumflex coronary artery and its branches are free of significant stenosis. LAD and its branches are free of significant stenosis. CONCLUSIONS: 1. Mild nonobstructive coronary artery disease. 2. Severe aortic stenosis with a asdi-ya-eweb gradient of about 40 mm. PLAN: I reviewed angiographic data with the patient. I will perform a HERMINIO to better evaluate the aortic valve and refer her for aortic valve replacement. MMODL / IJN: [id number] /
[2022-01-20] MEDS: SERTRALINE 50 MG TAB PO SCH (12:10)
[2022-01-20] MEDS: metFORMIN 500 MG TAB PO SCH ×2 (12:10→19:59)
[2022-01-20] MEDS: MULTIVITAMINS, THERA 1 EACH TAB PO SCH (12:10)
[2022-01-20] MEDS: PANTOPRAZOLE 40 MG TABLET PO SCH ×2 (12:10→20:06)
[2022-01-20] MEDS: INSULIN NPH 300 UNIT/3 ML VIAL SQ SCH ×2 (12:10→20:07)
[2022-01-20] MEDS: SODIUM CHLORIDE 0.9% 1,000 ML IV SCH ×2 (12:11→22:56)
[2022-01-20 12:26] LABS: HCT 46.5 % (34.0-46.0); HGB 15.4 gm/dL (11.4-16.0); MCH 34.4 pg (25.0-35.0); MCHC 33.2 g/dL (31.0-37.0); MCV 103.9 fL (80.0-100.0); Macrocytosis Slight; Mean Platelet Volume 8.3; Platelet Count 211 k/uL (150-450); RBC 4.48 m/uL (3.80-5.40); RDW 12.5 % (11.5-15.5); WBC 9.5 k/uL (3.8-10.6)
[2022-01-20 12:47] LABS: ALT 16 U/L (4-34); AST 25 U/L (14-36); African American GFR (CKD) >90 (>60 ml/min/1.73 sqM); Albumin 3.6 g/dL (3.5-5.0); Alkaline Phosphatase 110 U/L (38-126); Anion Gap 7 mmol/L; Blood Urea Nitrogen 23 mg/dL (7-17); Carbon Dioxide 18 mmol/L (22-30); Chloride 109 mmol/L (98-107); Glucose 103 mg/dL (74-99); Non-African American GFR(CKD) 89 (>60 ml/min/1.73 sqM); Potassium 4.5 mmol/L (3.5-5.1); Sodium 134 mmol/L (137-145); Total Bilirubin 1.4 mg/dL (0.2-1.3); Total Protein 6.8 g/dL (6.3-8.2)
--- NOTE | 2022-01-20 14:27 | P.PN ---
Subjective Progress Note Date: 01/20/22 Progress Note Date: 01/19/22 This 62-year-old pleasant female, with known history of cold colon cancer 2002, requiring the chemoradiation, aortic stenosis and paroxysmal atrial fibrillation also with history of significant weight loss, at one time she weighed 545 pounds, elective abdominoplasty secondary to pannus and panniculitis, for which Dr. Sierra has performed the procedure 05/23/2021. 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 She also has aortic stenosis, followed by scientific database curator in [facility] and has a loop recorder. Now seeing cardiology Dr. Houston last admitted to the hospital in October 2021 for stroke patient was switched from Coumadin to Eliquis during that hospitalization comes in this time with episodes of blurry vision, associated with word finding difficulty that started around 11 AM yeste rday. 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 Family noticed that she was not able to speak clearly. She also was unable to see from the corner of her eye. Patient also complaining of severe headache associated with vision changes. Patient states she started noticing chest pain that started the same time describe it as pressure in the center of the chest. Patient went to her primary care physician who directed her to the hospital. When the patient presented to the ER the chest pain had resolved. Patient is not a TPA candidate as the symptoms started more than 4-1/[address] angiogram no evidence of dissection of the cervical internal carotid arteries and vertebral arteries or any evidence of significant stenosis and carotid bifurcation. CT brain was negative for any intracranial process. EKG was negative for ST or T-wave changes. Sinus rhythm with short ME interval noted chest x-ray negative for any acute cardiopulmonary process. Echocardiogram suggested severe concentric left ventricle hypertrophy with ejection fraction 55-60% with moderate aortic regurgitation and severe aortic stenosis moderate mitral regurgitation present. MRI suggestive of nonspecific white matter demyelination with mild sinus disease 3/5: She is found resting in the chair at this side of the bed. She is in no acute distress. Patient states that she is able to see peripherally better compared to yesterday. Continues to have some black spots in her vision. And some double vision. Overall however her vision has improved. It was discussed that patient will be having procedures done this weekend in preparation for a valve replacement at the beginning of the week. Patient states that her chest pain has been improving. She is feeling better today compared to yesterday. Patient remained afebrile, pulse rate 69, respirations 16 blood pressure 119/69, 98% on room air. 01/19: Patient is found sitting up in bed in no acute distress. Patient states that she is not been sleeping well because she does not have her CPAP machine. However when her son was bringing it to her he did drop and breaking into 3 pieces. We will attempt to get a CPAP machine for her to utilize in the hospital her setting is 10. Patient's speech has improved it is clear. Patient continues to have some chest pain in the center of her chest. Patient states that her vision is improving. Continues to have diplopia, and depth perception issues. 01/20: Patient is laying in bed shortly after heart catheter which finding were consistent with minimum disease with mild to moderate aortic stenosis only. Patient does not require any intervention at this time. Patient would not to go home until tomorrow morning we'll continue current management repeat another CMP if she is doing well tomorrow morning should be able to discharge. ROS Constitutional: Denies chills, Denies fever, endorses lethargy, Denies poor appetite, endorses weakness, Denies weight loss Eyes: denies decreased vision, denies diplopia, denies discharge, denies pain Ears: deny: decreased hearing Ears, nose, mouth and throat: Denies dental pain, Denies headache, Denies nasal discharge, Denies nose pain Cardiovascular: endorses chest pain, Denies decreased exercise tolerance, Denies edema, Denies high blood pressure, Denies irregular heart beat, Denies palpitations, Denies paroxysmal nocturnal dyspnea, Denies rapid heart beat, Denies shortness of breath Respiratory: Denies congestion, Denies cough, Denies cough with sputum, Denies dyspnea, Denies home oxygen, Denies wheezing Gastrointestinal: Denies abdominal pain, Denies change in bowel habits, Denies coffee ground emesis, Denies early satiety, Denies excessive gas, Denies heartburn, Denies hematemesis, Denies hematochezia, Denies loss of appetite, Denies nausea, Denies vomiting Genitourinary: Denies dysuria, Denies flank pain, Denies kidney stones, Denies menorrhagia, Denies urgency, Denies urinary frequency Musculoskeletal: Denies gait dysfunction, Denies limitation of motion, Denies morning stiffness, Denies muscle cramps Integumentary: Denies rash, Denies wounds, Denies brittle nails, Denies change in hair/nails, Denies darkening of skin Neurological: Denies balance difficulties, endorses change in speech, endorses double vision, Denies gait dysfunction, endorses loss of vision, endorse motor disturbance, Denies numbness, Denies paralysis, Denies paresthesias, Denies seizures Psychiatric: Denies anxiety, Denies depression Endocrine: Denies excessive sweating, Denies excessive thirst, Denies high blood sugars, Denies palpitations Hematologic/Lymphatic: Denies easy bruising, Denies lymphadenopathy Physical exam General Appearance: Alert, cooperative, no distress, 71-year-old appears stated age. Examined in the bed on 3 south. Neck HEENT: Supple, no lymphadenopathy, no thyroid enlargement, no carotid bru its. Eyes: anicteric sclerae, PERRLA, normal appearance hemianopia on the right upper quadrant, diplopia present continuing to improve with the right blurry vision Lungs: Clear to auscultation without crackles or wheezes no rhonchi, no deformity. Chest Wall: Chest wall normal expansion with deep inspiration no tenderness and no deformity was found on exam, no costochondral pain or discomfort. Heart: Regular rate and rhythm, S1, S2 normal, 3+ systolic murmur,no diastolic murmur, no rub, no S3 gallop, no S4 gallop, no click Back: Symmetric, no curvature, ROM normal, no CVA tenderness. Abdomen: Soft, non-tender, no rebound or rigidity, no hepatosplenomegaly. Extremities: Ataxic gait, Extremities normal, atraumatic, no cyanosis or edema. Pulses: 2+ and symmetric. Skin: Skin color, texture, tugor normal, no rashes or lesions. Neurologic: Right upper quadrant, and a pole, 4+/ 5 this is both left upper and lower extremity with foot drop evident on the left, 5/5 strength on the right Alert oriented x3 Assessment and plan 1. Acute TIA, with history of CVA expressive APHASIA with hemianopia given 325 mg in ED, ON ELIQUIS 5 MG PO BID , MRI of the brain impression: Nonspecific white matter demyelination, mild sinus disease. Patient is a clear by neurology at this point continue current management for cardiovascular no other neuro recommendation. physical therapy occupational therapy, neurology and cardiology consultation echocardiogram, no prior HERMINIO is available for review in the hospital. ON ELIQUIS since last hospitalization. Patient had heart catheter today did not require any active aortic valve placement at this point. 2. Paroxysmal atrial fibrillation on long-term anticoagulation. a loop recorder is in place, unknown HERMINIO evaluation, on eliquis Cardiology consult 3. Acute chest pain with acute troponin elevation, possible sec to severe aortic stenosis on Eliquis continue Lipitor 40 mg daily at bedtime. Patient ended up having heart catheter which was negative for any acute blockage. 4. . Diabetes mellitus type 2, continue metformin. Continue NPH 30 units daily and 35 units at bedtime. 5. CAD, with heart stents in the past, 6. History of colon cancer with history of colostomy with reversal 7. History of a loop recorder, pacemaker, most of the records were at [facility] 8 h/o syncope with severe aortic stenoiss . 9 elective panniculectomy, performed by Dr. Sierra 05/22/2021, 10 DVT prophylaxis on Eliquis 11. GI prophylaxis. Protonix CODE STATUS: Full code Discharge planning: Patient be discharged home tomorrow morning. Objective - Vital Signs Vital signs: Vital Signs Temp 98.3 F 01/20/22 08:00 Pulse 72 01/20/22 08:00 Resp 16 01/20/22 08:00 BP 123/60 01/20/22 08:00 Pulse Ox 97 01/20/22 08:00 Intake & Output 01/19/22 01/20/22 01/20/22 18:59 06:59 18:59 Intake Total 900 125 Balance 900 125 Intake: IV 125 Oral 900 Other: Voiding Method Toilet Toilet Toilet # Voids 1 2 1 # Bowel Movements 1 - Labs CBC & Chem 7: 01/20/22 11:51 01/20/22 11:51 Labs: Abnormal Lab Results - Last 24 Hours (Table) 01/19/22 01/19/22 01/20/22 Range/Units 16:43 19:17 06:06 POC Glucose (mg/dL) 132 H 180 H 131 H (75-99) mg/dL
[2022-01-20] MEDS: ACETAMINOPHEN TAB 325 MG TAB PO PRN (14:32)
[2022-01-20] MEDS: ALBUTEROL NEBULIZED 2.5 MG/3 ML INHALATION PRN (16:13)
[2022-01-20 16:39] LABS: Glucose,Whole Blood 157 mg/dL (75-99)
[2022-01-20 19:41] LABS: Glucose,Whole Blood 158 mg/dL (75-99)
[2022-01-20] MEDS: PRAMIPEXOLE 0.125 MG TAB PO SCH (20:06)
[2022-01-20] MEDS: ATORVASTATIN 40 MG TAB PO SCH (20:06)
[2022-01-21 03:59] VITALS: RESP 18
[2022-01-21 05:57] LABS: Glucose,Whole Blood 135 mg/dL (75-99)
[2022-01-21] MEDS: INSULIN NPH 300 UNIT/3 ML VIAL SQ SCH (07:48)
[2022-01-21] MEDS: MULTIVITAMINS, THERA 1 EACH TAB PO SCH (07:50)
[2022-01-21] MEDS: SERTRALINE 50 MG TAB PO SCH (07:50)
[2022-01-21] MEDS: PANTOPRAZOLE 40 MG TABLET PO SCH (07:50)
[2022-01-21] MEDS: metFORMIN 500 MG TAB PO SCH (07:51)
[2022-01-21 07:53] VITALS: BP 112/60; PULSE 72; TEMP 98
[2022-01-21] MEDS: ALBUTEROL NEBULIZED 2.5 MG/3 ML INHALATION PRN (08:11)
--- NOTE | 2022-01-21 09:48 | P.PN ---
Subjective Progress Note Date: 01/21/22 Progress Note Date: 01/19/22 This 62-year-old pleasant female, with known history of cold colon cancer 2002, requiring the chemoradiation, aortic stenosis and paroxysmal atrial fibrillation also with history of significant weight loss, at one time she weighed 545 pounds, elective abdominoplasty secondary to pannus and panniculitis, for which Dr. Sierra has performed the procedure 05/23/2021. 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 She also has aortic stenosis, followed by environmental construction engineer in [facility] and has a loop recorder. Now seeing cardiology Dr. Houston last admitted to the hospital in October 2021 for stroke patient was switched from Coumadin to Eliquis during that hospitalization comes in this time with episodes of blurry vision, associated with word finding difficulty that started around 11 AM yeste rday. 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 Family noticed that she was not able to speak clearly. She also was unable to see from the corner of her eye. Patient also complaining of severe headache associated with vision changes. Patient states she started noticing chest pain that started the same time describe it as pressure in the center of the chest. Patient went to her primary care physician who directed her to the hospital. When the patient presented to the ER the chest pain had resolved. Patient is not a TPA candidate as the symptoms started more than 4-1/[address] angiogram no evidence of dissection of the cervical internal carotid arteries and vertebral arteries or any evidence of significant stenosis and carotid bifurcation. CT brain was negative for any intracranial process. EKG was negative for ST or T-wave changes. Sinus rhythm with short OK interval noted chest x-ray negative for any acute cardiopulmonary process. Echocardiogram suggested severe concentric left ventricle hypertrophy with ejection fraction 55-60% with moderate aortic regurgitation and severe aortic stenosis moderate mitral regurgitation present. MRI suggestive of nonspecific white matter demyelination with mild sinus disease 3/5: She is found resting in the chair at this side of the bed. She is in no acute distress. Patient states that she is able to see peripherally better compared to yesterday. Continues to have some black spots in her vision. And some double vision. Overall however her vision has improved. It was discussed that patient will be having procedures done this weekend in preparation for a valve replacement at the beginning of the week. Patient states that her chest pain has been improving. She is feeling better today compared to yesterday. Patient remained afebrile, pulse rate 69, respirations 16 blood pressure 119/69, 98% on room air. 01/19: Patient is found sitting up in bed in no acute distress. Patient states that she is not been sleeping well because she does not have her CPAP machine. However when her son was bringing it to her he did drop and breaking into 3 pieces. We will attempt to get a CPAP machine for her to utilize in the hospital her setting is 10. Patient's speech has improved it is clear. Patient continues to have some chest pain in the center of her chest. Patient states that her vision is improving. Continues to have diplopia, and depth perception issues. 01/20: Patient is laying in bed shortly after heart catheter which finding were consistent with minimum disease with mild to moderate aortic stenosis only. Patient does not require any intervention at this time. Patient would not to go home until tomorrow morning we'll continue current management repeat another CMP if she is doing well tomorrow morning should be able to discharge. 01/21: Patient is doing very well so far since her heart cath no major finding, her CMP was done today patient is doing very well no major challenge will be sending her home today to follow with cardiology as an outpatient to follow on Kylie deal with to do for the aortic valve on outpatient basis. Otherwise patient is stable and no other neuro symptoms at this point. ROS Constitutional: Denies chills, Denies fever, endorses lethargy, Denies poor appetite, endorses weakness, Denies weight loss Eyes: denies decreased vision, denies diplopia, denies discharge, denies pain Ears: deny: decreased hearing Ears, nose, mouth and throat: Denies dental pain, Denies headache, Denies nasal discharge, Denies nose pain Cardiovascular: endorses chest pain, Denies decreased exercise tolerance, Denies edema, Denies high blood pressure, Denies irregular heart beat, Denies palpitations, Denies paroxysmal nocturnal dyspnea, Denies rapid heart beat, Denies shortness of breath Respiratory: Denies congestion, Denies cough, Denies cough with sputum, Denies dyspnea, Denies home oxygen, Denies wheezing Gastrointestinal: Denies abdominal pain, Denies change in bowel habits, Denies coffee ground emesis, Denies early satiety, Denies excessive gas, Denies heartburn, Denies hematemesis, Denies hematochezia, Denies loss of appetite, Denies nausea, Denies vomiting Genitourinary: Denies dysuria, Denies flank pain, Denies kidney stones, Denies menorrhagia, Denies urgency, Denies urinary frequency Musculoskeletal: Denies gait dysfunction, Denies limitation of motion, Denies morning stiffness, Denies muscle cramps Integumentary: Denies rash, Denies wounds, Denies brittle nails, Denies change in hair/nails, Denies darkening of skin Neurological: Denies balance difficulties, endorses change in speech, endorses double vision, Denies gait dysfunction, endorses loss of vision, endorse motor disturbance, Denies numbness, Denies paralysis, Denies paresthesias, Denies seizures Psychiatric: Denies anxiety, Denies depression Endocrine: Denies excessive sweating, Denies excessive thirst, Denies high blood sugars, Denies palpitations Hematologic/Lymphatic: Denies easy bruising, Denies lymphadenopathy Physical exam General Appearance: Alert, cooperative, no distress, 71-year-old appears stated age. Examined in the bed on 3 south. Neck HEENT: Supple, no lymphadenopathy, no thyroid enlargement, no carotid bruits. Eyes: anicteric sclerae, PERRLA, normal appearance hemianopia on the right upper quadrant, diplopia present continuing to improve with the right blurry vision Lungs: Clear to auscultation without crackles or wheezes no rhonchi, no deformity. Chest Wall: Chest wall normal expansion with deep inspiration no tenderness and no deformity was found on exam, no costochondral pain or discomfort. Heart: Regular rate and rhythm, S1, S2 normal, 3+ systolic murmur,no diastolic murmur, no rub, no S3 gallop, no S4 gallop, no click Back: Symmetric, no curvature, ROM normal, no CVA tenderness. Abdomen: Soft, non-tender, no rebound or rigidity, no hepatosplenomegaly. Extremities: Ataxic gait, Extremities normal, atraumatic, no cyanosis or edema. Pulses: 2+ and symmetric. Skin: Skin color, texture, tugor normal, no rashes or lesions. Neurologic: Right upper quadrant, and a pole, 4+/ 5 this is both left upper and lower extremity with foot drop evident on the left, 5/5 strength on the right Alert oriented x3 Assessment and plan 1. Acute TIA, with history of CVA expressive APHASIA with hemianopia given 325 mg in ED, ON ELIQUIS 5 MG PO BID , MRI of the brain impression: Nonspecific white matter demyelination, mild sinus disease. Patient is a clear by neurology at this point continue current management for cardiovascular no other neuro recommendation. physical therapy occupational therapy, neurology and cardiology consultation echocardiogram, no prior HERMINIO is available for review in the hospital. ON ELIQUIS since last hospitalization. Patient had heart catheter today did not require any active aortic valve placement at this point. 2. Paroxysmal atrial fibrillation on long-term anticoagulation. a loop recorder is in place, unknown HERMINIO evaluation, on eliquis Cardiology consult 3. Acute chest pain with acute troponin elevation, possible sec to severe aortic stenosis on Eliquis continue Lipitor 40 mg daily at bedtime. Patient ended up having heart catheter which was negative for any acute blockage. 4. . Diabetes mellitus type 2, continue metformin. Continue NPH 30 units daily and 35 units at bedtime. 5. CAD, with heart stents in the past, 6. History of colon cancer with history of colostomy with reversal 7. History of a loop recorder, pacemaker, most of the records were at [facility] 8 h/o syncope with severe aortic stenoiss . 9 elective panniculectomy, performed by Dr. Sierra 05/22/2021, 10 DVT prophylaxis on Eliquis 11. GI prophylaxis. Protonix CODE STATUS: Full code Discharge planning: Patient be discharged home tomorrow morning. Objective - Vital Signs Vital signs: Vital Signs Temp 98.0 F 01/21/22 07:53 Pulse 72 01/21/22 08:22 Resp 18 01/21/22 07:53 BP 112/60 01/21/22 07:53 Pulse Ox 95 01/21/22 07:53 Intake & Output 01/20/22 01/21/22 01/21/22 18:59 06:59 18:59 Intake Total 1385 Balance 1385 Intake: IV 125 Oral 1260 Other: Voiding Method Toilet Toilet Toilet # Voids 1 1 # Bowel Movements 1 - Labs CBC & Chem 7: 01/20/22 11:51 01/21/22 08:33 Labs: Abnormal Lab Results - Last 24 Hours (Table) 01/20/22 01/20/22 01/20/22 Range/Units 11:50 11:51 11:51 Hct 46.5 H (34.0-46.0) % MCV 103.9 H (80.0-100.0) fL Sodium 134 L (137-145) mmol/L Chloride 109 H (98-107) mmol/L Carbon Dioxide 18 L (22-30) mmol/L BUN 23 H (7-17) mg/dL Glucose 103 H (74-99) mg/dL POC Glucose (mg/dL) 101 H (75-99) mg/dL Total Bilirubin 1.4 H (0.2-1.3) mg/dL 01/20/22 01/20/22 01/21/22 Range/Units 16:38 19:39 05:55 Hct (34.0-46.0) % MCV (80.0-100.0) fL Sodium (137-145) mmol/L Chloride (98-107) mmol/L Carbon Dioxide (22-30) mmol/L BUN (7-17) mg/dL Glucose (74-99) mg/dL POC Glucose (mg/dL) 157 H 158 H 135 H (75-99) mg/dL Total Bilirubin (0.2-1.3) mg/dL 01/21/22 Range/Units 08:33 Hct (34.0-46.0) % MCV (80.0-100.0) fL Sodium 136 L (137-145) mmol/L Chloride (98-107) mmol/L Carbon Dioxide (22-30) mmol/L BUN 23 H (7-17) mg/dL Glucose 147 H (74-99) mg/dL POC Glucose (mg/dL) (75-99) mg/dL Total Bilirubin (0.2-1.3) mg/dL
--- NOTE | 2022-01-21 13:35 | P.PN ---
Subjective This is 71-year-old female past medical history approximately fibrillation, CVA, COPD, aortic stenosis, hypertension. She follows in the office with Dr. Houston. We are following the patient for severe aortic stenosis. Echocardiogram revealed normal LV function with severe aortic stenosis peak gradient 90 mmHg, mean gradient 54 mmHg. Patient underwent cardiac catheterization with Dr. Houston 01/20/2022, that revealed mild nonobstructive coronary artery disease, severe aortic stenosis peak gradient of 40 mm. Patient seen and examined at bedside. She also denies any chest pain or chest pressure. No shortness of breath. Right radial cath site, clean, dry, no hematoma, mild bruising, mild soreness to palpation, 2+ pulses. Labs, sodium 136, potassium 5.0, BUN 23, serum creatinine 0.8 GENERAL: Well-appearing, well-nourished and in no acute distress. NECK: Supple without JVD. LUNGS: Breath sounds clear to auscultation bilaterally. Respiration equal and unlabored. No wheezes, rales or rhonchi. HEART: Regular rate and rhythm. Systolic ejection murmur. No rubs or gallops. S1 and S2 heard. EXTREMITIES: Normal range of motion, no edema. No clubbing or cyanosis. Peripheral pulses intact and strong. VITALS:BP 112/60, heart rate 72, afebrile, oxygen saturations 90% room air TELEMETRY: Sinus mechanism. No arrhythmias. IMPRESSION: Aortic stenosis, severe Mild nonobstructive CAD Visual disturbances, TIA versus hypotension secondary to valve disease Hypertension History of atrial fibrillation, on anticoagulation PLAN: From a cardiology perspective, patient is stable for discharge. Follow up with Dr. [place] outpatient Nurse practitioner note has been reviewed by physician. Signing provider agrees with the documented findings, assessment, and plan of care. Objective - Vital Signs Vital signs: Vital Signs Temp 98.0 F 01/21/22 07:53 Pulse 72 01/21/22 08:22 Resp 18 01/21/22 07:53 BP 112/60 01/21/22 07:53 Pulse Ox 95 01/21/22 07:53 Intake & Output 01/20/22 01/21/22 01/21/22 18:59 06:59 18:59 Intake Total 1385 Balance 1385 Intake: IV 125 Oral 1260 Other: Voiding Method Toilet Toilet Toilet # Voids 1 1 # Bowel Movements 1 - Labs CBC & Chem 7: 01/20/22 11:51 01/21/22 08:33 Labs: Abnormal Lab Results - Last 24 Hours (Table) 01/20/22 01/20/22 01/21/22 Range/Units 16:38 19:39 05:55 Sodium (137-145) mmol/L BUN (7-17) mg/dL Glucose (74-99) mg/dL POC Glucose (mg/dL) 157 H 158 H 135 H (75-99) mg/dL 01/21/22 Range/Units 08:33 Sodium 136 L (137-145) mmol/L BUN 23 H (7-17) mg/dL Glucose 147 H (74-99) mg/dL POC Glucose (mg/dL) (75-99) mg/dL
--- NOTE | 2022-01-23 12:27 | CDI ---
Documentation Clarification Form Date: 01/23/22 From: Chasity Ferguson Admit Date: 01/16/2022 07:37:00 PM Patient Name: Milka Floyd Visit Number: [id number] Discharge Date: 01/21/2022 11:24:00 AM ATTENTION: The Clinical Documentation Specialists (CDI) and [facility] Coding Staff appreciate your assistance in clarifying documentation. Please respond to the clarification below the line at the bottom and electronically sign. The CDI & [facility] Coding staff will review the response and follow-up if needed. Please note: Queries are made part of the Legal Health Record. If you have any questions, please contact the author of this message via ITS. Dr. Sean Borges, NSTEMI is documented in ED Note, neuro consult & PB. Additional clarification regarding the type of GA is requested. History/Risk Factors: aortic and mitral valve disorders, TIA, late effect of prior stroke-left hemiparesis, PAF, COPD, RLS, CAD mildly obstructive, hx of cardiac stents, pacemaker Clinical Indicators: States that at that time, she also is having some chest pain, which has since mostly resolved. Describes it as a tight belt around her chest pressure sensation. No shortness of breath. Troponin: 0.132, 0.320, 0.425 EKG Results (cardiology consult): No evidence for high-grade stenosis in the intracranial vessels no aneurysm. Twelve-lead EKG shows sinus rhythm normal [place] narrow QRS normal ST segments. Abnormal troponins in the setting of a CVA/TIA, with completely normal EKG is, 2 serial EKGs Treatment: Heart cath Please clarify the type of GA, if known: [ ] NSTEMI (type 1) [ ] Type II GA due to (please specify etiology) [ ] Non-GA troponin elevation (please specify etiology) [ x ] Unable to determine [ ] Other Condition, please specify Unable to determine MTDD
== END 2022-01-21 11:24 | disposition home or self-care (01) | DRG 69 ==
LOC: 3SCARD 19:37
PROVIDERS: ADMIT Internal Medicine; ATTEND Internal Medicine
PROC: 4A023N7 Measurement of Cardiac Sampling and Pressure, Left Heart, Percutaneous Approach (ICD-10-PCS; principal; 2022-01-20 07:30)
PROC: B2111ZZ Fluoroscopy of Multiple Coronary Arteries using Low Osmolar Contrast (ICD-10-PCS; principal; 2022-01-20 07:30)
DX: G45.9 Transient cerebral ischemic attack, unspecified (principal); I69.354 Hemiplegia and hemiparesis following cerebral infarction affecting left non-dominant side; E11.41 Type 2 diabetes mellitus with diabetic mononeuropathy; I48.0 Paroxysmal atrial fibrillation; G25.81 Restless legs syndrome; E78.5 Hyperlipidemia, unspecified; J44.9 Chronic obstructive pulmonary disease, unspecified; Z79.4 Long term (current) use of insulin; I08.0 Rheumatic disorders of both mitral and aortic valves; I69.320 Aphasia following cerebral infarction; I25.10 Atherosclerotic heart disease of native coronary artery without angina pectoris; I10 Essential (primary) hypertension; F32.A Depression, unspecified; I69.398 Other sequelae of cerebral infarction; M21.372 Foot drop, left foot; G47.33 Obstructive sleep apnea (adult) (pediatric); K21.9 Gastro-esophageal reflux disease without esophagitis; R77.8 Other specified abnormalities of plasma proteins; Z79.01 Long term (current) use of anticoagulants; Z79.84 Long term (current) use of oral hypoglycemic drugs; Z79.899 Other long term (current) drug therapy; Z90.710 Acquired absence of both cervix and uterus; Z85.41 Personal history of malignant neoplasm of cervix uteri; Z85.038 Personal history of other malignant neoplasm of large intestine; Z92.3 Personal history of irradiation; Z92.21 Personal history of antineoplastic chemotherapy; Z90.49 Acquired absence of other specified parts of digestive tract; Z87.19 Personal history of other diseases of the digestive system; Z95.5 Presence of coronary angioplasty implant and graft; Z95.0 Presence of cardiac pacemaker; Z96.642 Presence of left artificial hip joint; Z87.891 Personal history of nicotine dependence; Z98.42 Cataract extraction status, left eye; Z98.41 Cataract extraction status, right eye; Z87.2 Personal history of diseases of the skin and subcutaneous tissue; Z98.890 Other specified postprocedural states; Z88.0 Allergy status to penicillin; Z88.2 Allergy status to sulfonamides; Z88.1 Allergy status to other antibiotic agents; Z91.030 Bee allergy status; Z91.040 Latex allergy status; Z80.8 Family history of malignant neoplasm of other organs or systems; Z82.3 Family history of stroke; Z83.3 Family history of diabetes mellitus; Z82.49 Family history of ischemic heart disease and other diseases of the circulatory system
CPT/HCPCS: 36415; 70450; 70496; 70498; 70551; 71046; 80048; 80053; 80061; 83036; 84484; 85025; 85027; 85610; 85730; 93005; 93308; 93458; 94640; 96361; 96374; 96375; 99285

== ENCOUNTER 2022-02-10 05:47 | Day surgery (SDC) | payer MEDICARE ==
[2022-02-06 08:25] VITALS: BMI 30.4
[2022-02-10 06:29] LABS: Glucose,Whole Blood 173 mg/dL (75-99)
[2022-02-10 06:30] VITALS: RESP 16; TEMP 98.9
[2022-02-10] MEDS ORDERED: SODIUM CHLORIDE 0.9% 500 ML 500 ML IV ONE (06:30)
[2022-02-10] MEDS ORDERED: BENZOCAINE SPRAY 1 CAN MUCOUS MEM ONE (07:30)
[2022-02-10] MEDS ORDERED: fentaNYL (PF) 50 MCG/ML 2 ML AMP IV ONE (07:42)
[2022-02-10] MEDS ORDERED: MIDAZOLAM 2 MG/2 ML VIAL IV ONE (07:42)
[2022-02-10 08:45] VITALS: BP 139/71; PULSE 68
--- NOTE | 2022-02-10 09:28 | ECHOT ---
TRANSESOPHAGEAL ECHOCARDIOGRAM INDICATION: Aortic stenosis. PROCEDURE NOTE: After obtaining informed consent, transesophageal echocardiogram was performed in left lateral position using an Omniplane probe. Local and IV sedation were obtained using Xylocaine spray, 2 mg of Versed and 25 mcg of fentanyl. Total conscious sedation time was 10 minutes. Patient tolerated the procedure well without any obvious immediate complications. Two-D, color Doppler and spectral analysis have been performed. FINDINGS: 1. Aortic valve. Aortic valve is a 3-leaflet valve, appears calcified with severe restriction in leaflet mobility. By planimetry the valve area is about 0.5 cm2. There is moderate aortic regurgitation noted. Aortic root appears within normal limits. 2. Mitral valve appears calcified, shows mild to moderate central mitral regurgitation. 3. Tricuspid valve shows mild tricuspid regurgitation. 4. Left atrium appears mildly enlarged. 5. Right atrium and right ventricle seen within normal limits. 6. Left ventricle has normal size and systolic function. 7. Interatrial septum. There is no evidence of [id number]-jh-[id number] shunt by color-flow Doppler or [id number] shunt by agitated saline contrast study. CONCLUSIONS: 1. Heavily calcified 3-leaflet valve with severe restriction in leaflet mobility and a valve area of 0.4 cm2 by planimetry, consistent with a diagnosis of severe aortic stenosis. 2. Moderate aortic regurgitation. 3. Mild to moderate mitral regurgitation. 4. Normal LV systolic function. PLAN: Patient will be referred for TAVR. MMODL / IJN: [id number] /
== END 2022-02-10 09:12 | disposition home or self-care (01) ==
LOC: CATHCVL 05:47
PROVIDERS: ATTEND Internal Medicine Cardiovascular Disease
DX: I08.3 Combined rheumatic disorders of mitral, aortic and tricuspid valves (principal); I10 Essential (primary) hypertension; E11.9 Type 2 diabetes mellitus without complications; Z79.84 Long term (current) use of oral hypoglycemic drugs; Z79.899 Other long term (current) drug therapy; Z79.4 Long term (current) use of insulin; Z79.01 Long term (current) use of anticoagulants; Z82.49 Family history of ischemic heart disease and other diseases of the circulatory system
CPT/HCPCS: 93312; 93325; J2250; J3010

== ENCOUNTER → 2022-03-11 | Outpatient (CLI) | payer MEDICARE ==
[2022-03-11 10:42] LABS: Partial Thromboplastin Time 25.5 sec (22.0-30.0); Prothrombin Time 10.5 sec (9.0-12.0)
[2022-03-11 10:51] LABS: Appearance,Urine Clear (Clear); Bacteria,Urine Rare /hpf; Bilirubin,Urine Negative (Negative); Blood,Urine Negative (Negative); Color,Urine Yellow; Glucose,Urine (UA) Negative (Negative); Ketones,Urine Negative (Negative); Leukocyte Esterase,Urine Small (Negative); Mucus,Urine Few /hpf; Nitrite,Urine Negative (Negative); PH, Urine 5.5 (5.0-8.0); Protein,Urine Trace (Negative); RBC,Urine <1 /hpf (0-5); Specific Gravity,Urine 1.028 (1.001-1.035); Squamous Epithelial Cell,Urine 3 /hpf (0-4); WBC,Urine 4 /hpf (0-5)
--- NOTE | 2022-03-11 12:43 | US ---
EXAMINATION TYPE: US carotid duplex BILAT DATE OF EXAM: 03/11/2022 COMPARISON: NONE CLINICAL HISTORY: R55 Syncope. EXAM MEASUREMENTS: RIGHT: Peak Systolic Velocity (PSV) cm/sec ----- Right CCA: 67.9 ----- Right ICA: 94.4 ----- Right ECA: 77.5 ICA/CCA ratio: 1.39 RIGHT: End Diastole cm/sec ----- Right CCA: 16.3 ----- Right ICA: 27.2 ----- Right ECA: 0.0 LEFT: Peak Systolic Velocity (PSV) cm/sec ----- Left CCA: 77.5 ----- Left ICA: 107.0 ----- Left ECA: 119.0 ICA/CCA ratio: 1.38 LEFT: End Diastole cm/sec ----- Left CCA: 12.9 ----- Left ICA: 31.3 ----- Left ECA: 15.6 VERTEBRALS (direction of flow): Right Vertebral: Antegrade Left Vertebral: Antegrade Rhythm: Normal No significant stenosis seen. No elevated velocities, minimal plaque noted. Grayscale images show mild to moderate peripheral shadowing plaque at right carotid bulb and slightly more prominent moderate peripheral plaque at left carotid bulb. Velocity measurements and ratios how ever remain within normal limits. IMPRESSION: Moderate atherosclerotic changes bilaterally without hemodynamically significant stenosi s seen in either internal carotid artery. Criteria for Assigning % of Stenosis / Diameter reduction (Estimation based on the indirect measurements of the internal carotid artery velocities (ICA PSV). 1. Normal (no stenosis)=ICA PSV < 125 cm/s: ratio < 2.0: ICA EDV<40 cm/s. 2. Less than 50% stenosis=ICA PSV < 125 cm/s: ratio < 2.0: ICA EDV<40 cm/s. 3. 50 to 69% stenosis=ICA PSV of 125 to 230 cm/s: ration 2.0 ? 4.0: ICA EDV 40-100 cm/s. 4. Greater than 70% stenosis to near occlusion= ICA PSV > 230 cm/s: ratio > 4.0: ICA EDV > 100 cm/s. 5. Near occlusion= ICA PSV velocities may be low or undetectable: variable ratio and ICA EDV. 6. Total occlusion=unable to detect flow.
[2022-03-11 14:19] LABS: Basophils # (A) 0.07 X 10*3/uL (0.00-0.10); Basophils % (A) 0.9 %; Eosinophils # (A) 0.12 X 10*3/uL (0.04-0.35); Eosinophils % (A) 1.6 %; HCT 43.6 % (37.2-46.3); HGB 13.7 g/dL (12.0-15.0); Immature Grans, Automated 0.4 %; Lymphocytes # (A) 2.23 X 10*3/uL (0.90-5.00); MCH 32.3 pg (27.0-32.0); MCHC 31.4 g/dL (32.0-37.0); MCV 102.8 fL (80.0-97.0); Mean Platelet Volume 10.4 fL (9.5-12.2); Monocytes # (A) 0.64 X 10*3/uL (0.20-1.00); Monocytes % (A) 8.6 %; NRBC Per 100 WBC 0 /100 WBCS (0.0-0.0); Neutrophils # (A) 4.35 X 10*3/uL (1.80-7.70); Neutrophils % (A) 58.5 %; Platelet Count 217 X 10*3/uL (140-440); RBC 4.24 X 10*6/uL (4.10-5.20); RDW 12.9 % (11.5-14.5); WBC 7.44 X 10*3/uL (4.50-10.00)
[2022-03-11 14:44] LABS: ALT 17 U/L (8-44); AST 16 U/L (13-35); African American GFR (CKD) 87.2 (60.0-200.0); Albumin 4.3 g/dL (3.8-4.9); Albumin/Globulin Ratio 1.72 (1.60-3.17); Alkaline Phosphatase 119 U/L (41-126); Blood Urea Nitrogen 17.6 mg/dL (9.0-27.0); Calcium 9.2 mg/dL (8.7-10.3); Carbon Dioxide 24.3 mmol/L (20.0-27.5); Chloride 107 mmol/L (96-109); Globulin 2.5 g/dL (1.6-3.3); Glucose 128 mg/dL (70-110); Hepatitis A Antibody IgM Nonreactive (Nonreactive); Hepatitis B Core IgM Nonreactive (Nonreactive); Hepatitis B Surface Antigen Nonreactive (Nonreactive); Magnesium 1.8 mg/dL (1.5-2.4); Non-African American GFR(CKD) 75.2 (60.0-200.0); Potassium 4.6 mmol/L (3.5-5.5); Sodium 142 mmol/L (135-145); Total Protein 6.8 g/dL (6.2-8.2)
[2022-03-11 14:45] LABS: Chol/HDL Ratio 3.33 Ratio; LDL Cholesterol,Calculated 98.6 mg/dL (0.0-131.0)
[2022-03-11 15:25] LABS: Hepatitis C IgG Antibody Reactive (Nonreactive)
== END | disposition home or self-care (01) ==
LOC: LABWHC1 08:28
PROVIDERS: ATTEND Thoracic Surgery (Cardiothoracic Vascular Surgery)
DX: Z01.812 Encounter for preprocedural laboratory examination (principal); I36.1 Nonrheumatic tricuspid (valve) insufficiency; E87.8 Other disorders of electrolyte and fluid balance, not elsewhere classified; R58 Hemorrhage, not elsewhere classified; E07.9 Disorder of thyroid, unspecified; R35.0 Frequency of micturition; I35.0 Nonrheumatic aortic (valve) stenosis; E11.9 Type 2 diabetes mellitus without complications; N28.9 Disorder of kidney and ureter, unspecified; E78.5 Hyperlipidemia, unspecified; I35.1 Nonrheumatic aortic (valve) insufficiency; Z79.899 Other long term (current) drug therapy; Z79.01 Long term (current) use of anticoagulants
CPT/HCPCS: 36415; 80053; 80061; 80074; 81001; 83036; 83735; 83880; 84443; 85025; 85610; 85730; 87086; 93005; 93880; 94150

== ENCOUNTER → 2022-03-15 | Outpatient (CLI) | payer MEDICARE ==
--- NOTE | 2022-03-17 11:29 | CT ---
EXAMINATION TYPE: CT TAVR Planning DATE OF EXAM: 03/15/2022 HISTORY: Nonrheumatic tricuspid valve insufficiency. CT DLP: 2144.3 mGycm Automated Exposure Control for Dose Reduction was Utilized. CONTRAST: CT scan of the chest, abdomen and pelvis is performed with IV Contrast, patient injected with 125 mL of Isovue 370. COMPARISON: None TECHNIQUE: Helical imaging obtained through the chest, abdomen and pelvis during arterial phase wendy alize administration of radiographic contrast intravenously. FINDINGS: See report from [place] regarding preprocedural planning CHEST: Lower Neck and Thyroid: No significant findings Lungs: Mild COPD. Very minimal compressive atelectasis may be a candidate left lung. Central Airway: No significant findings Pleura: No significant findings Pulmonary Arteries: No significant findings Heart and Pericardium: No significant findings Lymph Nodes: No significant findings Mediastinum & Esophagus: No significant findings ABDOMEN/PELVIS: Please note arterial phase of the imaging limits detailed evaluation of the solid abdominal organs. Vascular calcifications within the abdominal aorta. Liver: No significant findings Spleen: No significant findings. Splenule within the splenic hilum. Kidneys: Nonobstructive renal stones may be present on the right. There is a tiny cortical renal cyst s present on the right kidney superior pole. Renal cysts may be present within the left mid kidney. Adrenal Glands: No significant findings Pancreas: No significant findings Gallbladder: No significant findings Bowel and Mesentery: No significant findings Lymph Nodes: No significant findings Urinary Bladder: Decompressed with very limited evaluation Pelvic Organs: Uterus and ovaries are not identified. Other: No significant findings Other Lines/Tubes/Devices/Hardware: There is a left hip prosthesis. IMPRESSION: 1. CT for presurgical cardiac valve planning purposes.
== END | disposition home or self-care (01) ==
LOC: RADCTMAIN 07:56
PROVIDERS: ATTEND Thoracic Surgery (Cardiothoracic Vascular Surgery)
DX: Z01.818 Encounter for other preprocedural examination (principal); E87.8 Other disorders of electrolyte and fluid balance, not elsewhere classified; R58 Hemorrhage, not elsewhere classified; E07.9 Disorder of thyroid, unspecified; R35.0 Frequency of micturition; I35.0 Nonrheumatic aortic (valve) stenosis; E11.9 Type 2 diabetes mellitus without complications; N28.9 Disorder of kidney and ureter, unspecified; E78.5 Hyperlipidemia, unspecified; Z79.899 Other long term (current) drug therapy; Z79.01 Long term (current) use of anticoagulants
CPT/HCPCS: 71275; 74174; Q9967

== ENCOUNTER 2022-03-26 10:15 | Inpatient (IN) | payer MEDICARE ==
[2022-04-02] MEDS ORDERED: CLEVIDIPINE BUTYRATE 25 MG in EMPTY BAG 1 BAG IV PRN (06:00)
[2022-04-02] MEDS ORDERED: SODIUM CHLORIDE 0.9% 500 ML 500 ML INTRAARTER PRN (06:00)
[2022-04-02] MEDS ORDERED: INSULIN REGULAR 100 UNIT in SODIUM CHLORIDE 0.9% 100 ML IV PRN (06:00)
[2022-04-02] MEDS ORDERED: CLINDAMYCIN 600 MG in DEXTROSE 5% IN WATER 50 ML IVPB ONE ×2 (06:00)
[2022-04-02] MEDS ORDERED: NITROGLYCERIN-D5W PMX 25 MG/250 ML BTL IV PRN (06:00)
[2022-04-02] MEDS ORDERED: CLOPIDOGREL 75 MG TAB PO ONE (06:00)
[2022-04-02] MEDS ORDERED: TRANEXAMIC ACID 2,000 MG in SODIUM CHLORIDE 0.9% 80 ML IV PRN (06:00)
[2022-04-02] MEDS ORDERED: ATORVASTATIN 10 MG TAB PO ONE (06:00)
[2022-04-02] MEDS ORDERED: LACTATED RINGERS 1,000 ML IV SCH (06:00)
[2022-04-02] MEDS ORDERED: PROTAMINE SULFATE 250 MG in EMPTY BAG 1 BAG IV PRN (06:00)
[2022-04-02] MEDS ORDERED: METOPROLOL TARTRATE 25 MG TAB PO ONE (06:00)
[2022-04-02] MEDS ORDERED: ELECTROLYTE-A SOLUTION 1,000 ML with POTASSIUM CHLORIDE 100 MEQ, MAGNESIUM SULFATE 16 M... IV PRN ×5 (06:00)
[2022-04-02] MEDS ORDERED: ASPIRIN 325 MG TAB PO ONE (06:00)
[2022-04-02] MEDS ORDERED: SODIUM CHLORIDE 0.9% 1,000 ML IV ONE (06:39)
[2022-04-02 07:00] LABS: Glucose,Whole Blood 155 mg/dL (75-99)
[2022-04-02] MEDS ORDERED: MIDAZOLAM 2 MG/2 ML VIAL IVP ONE (07:55)
[2022-04-02] MEDS ORDERED: GLYCOPYRROLATE 0.2 MG/ML 2 ML VIAL ONE (08:13)
[2022-04-02] MEDS ORDERED: NEOSTIGMINE 1 MG/ML 10 ML VIAL ONE (08:13)
[2022-04-02] MEDS ORDERED: HYDROmorphone (PF) 1 MG/ML ONE (08:13)
[2022-04-02] MEDS ORDERED: ROCURONIUM 10 MG/ML (5 ML VIAL) IV ONE (08:13)
[2022-04-02] MEDS ORDERED: PROPOFOL 10 MG/ML 20 ML VIAL IV ONE (08:13)
[2022-04-02] MEDS ORDERED: LIDOCAINE 4% LTA KIT (4 ML) TOPICAL ONE (08:13)
[2022-04-02] MEDS ORDERED: LIDOCAINE 2% INJ 20 MG/ML (2 ML VIAL) ONE (08:13)
[2022-04-02] MEDS ORDERED: CLINDAMYCIN 150 MG/ML 4 ML VIAL ONE (08:13)
[2022-04-02] MEDS ORDERED: fentaNYL (PF) 50 MCG/ML 2 ML AMP ONE (08:13)
[2022-04-02] MEDS ORDERED: PROTAMINE SULFATE 10 MG/ML 5 ML VIAL IV ONE (08:13)
[2022-04-02] MEDS ORDERED: HEPARIN SODIUM,PORCINE 5,000 UNIT/ML 1 ML VIAL ONE (08:13)
[2022-04-02] MEDS ORDERED: SUCCINYLCHOLINE CHLORIDE 100 MG/5 ML SYR IV ONE (08:13)
[2022-04-02] MEDS ORDERED: ONDANSETRON 4 MG/2 ML VIAL ONE (08:13)
[2022-04-02] MEDS ORDERED: IOPAMIDOL-370 125ML BTL INJ ONE (09:38)
--- NOTE | 2022-04-02 09:56 | P.ANPRN ---
Procedure Note - Anesthesia - Invasive Line Right Arterial Line Time Out Performed: Yes Date of Procedure: 04/02/22 Time of Procedure: 07:51 Location of Patient: CVL Preparation: Sterile Prep, Sterile Dressing Arterial Line Location: Radial Ultrasound Used: No Purpose - Visualization and Identification of Vasculature: No Needle Guage: 20 G Image Stored and Saved: Yes Narrative: Informed consent obtained from the patient. Procedure was performed under complete aseptic precautions. The right wrist is slightly extended and placed on a roll of cloth. Radial artery palpated and appeared to have a intact collateral circulation. Front of the wrist was cleaned with ChloraPrep. It was draped and 2 mL of 1% lidocaine was infiltrated and ability into the front of the wrist. A 20-gauge two and half inch Arrow arterial catheter was inserted and a bright red blood/back was noticed. It was connected to the pressure monitoring line and the flashback was confirmed. The line was sutured into the skin. Tegaderm dressing was applied. Patient tolerated the procedure very well with no apparent complications. - HERMINIO Intraop Pre Bypass HERMINIO Intraop - Anesthesia Indication: Transcatheter of aortic valve replacement procedure Date of Procedure: 04/02/22 Pre-operative Diagnosis: Severe aortic stenosis Post-operative Diagnosis: Status post transcatheter aortic valve replacement for severe aortic stenos Surgeon: Bakari Saini Left Ventricle: Normal in size. Ejection fraction 55%. No regional wall motion abnormalities observed. Regional Wall Motion Abnormalities: None Left Ventricle Hypertrophy: No R. Ventricle Function: Normal Aortic Valve: Trileaflet aortic valve. Severely calcified leaflets. Severe aortic stenosis with valve area of 0.3 cm. Peak gradient is 68 mmHg and mean gradient is 37 mmHg Anatomy: Trileaflet Aortic Stenosis: Severe Aortic Regurgitation: Mild Mitral Valve: Calcified mitral valve. Moderate to moderate mitral regurgitation seen. Mitral Stenosis: None Mitral Regurgitation: Moderate Tricuspid Stenosis: None Tricuspid Regurgitation: Mild Pulmonic Stenosis: None R. Atrial Dilation: No R. Atrial PFO: No L. Atrial Dilation: Yes (Mild) Aortic Dissection: No Aortic Calcification: None Plural Effusion: Right - HERMINIO Intraop Post Bypass HERMINIO Intraop Post Bypass Procedure Performed: Transcatheter aortic valve replacement procedure Left Ventricle: Ejection fraction 55-60%. No new regional wall motion abnormalities seen. Regional Wall Motion Abnormalities: None R. Ventricle Function: Normal Aortic Valve: Prosthetic aortic valve in situ. Appears to be seated well. Trace to mild paravalvular regurgitation seen. Peak gradient across the prosthetic valve is 15 mmHg and mean gradient is 8 mmHg. Mitral Valve: Unchanged Tricuspid: Unchanged Pulmonic: Unchanged
--- NOTE | 2022-04-02 10:23 | P.PCN ---
Date of Procedure: 04/02/22 Operative Findings: TRANSCUTANEOUS AORTIC VALVE REPLACEMENT PROCEDURE PERFORMED: 1. Percutaneous Aortic Vavle replacement using Barone Eva 23 mm 2. Transesophageal echocardiography (performed by anesthesia) 3. Ultrasound guided access and repair of right femoral artery access site by Perclose and Angioseal closure device. 4. Placement of temporary pacemaker wire. 5. Selective bilateral common femoral arteries angiogram INDICATIONS: 1. 71 year-old with a history of severe symptomatic aortic valve stenosis. 2. Symptoms of shortness of breath consistent with NYHA class II PERFORMING PHYSICIANS: 1. Jose Caballero DO Interventional Cardiology 2. Tao Luo MD Interventional Cardiology. 3. Bakari Saini MD, Cardiothoracic Surgeon. SEDATION: General anesthesia provided by anesthesia, see separate note APPROACH: Right and left femoral artery via percutaneous approach PROCEDURE DESCRIPTION: The patient was discussed at valve clinic with multidisciplinary approach with cardiothoracic surgeon as well as collaborative teacher and thought better treated with TAVR. Risks, benefits, and alternatives of the procedure had been explained to the patient who understood the risks and agreed to proceed. After consents were obtained, patient was brought to the transcatheter aortic valve implantation room in the cardiac produce laborer and general anesthesia was provided by the anesthesiologist (see separate report). Please note that transvenous pacemaker from right subclavian was performed by Dr. Saini. Next the left common femoral artery waw accessed using a modified Seldinger technique, ultrasound guidance and micropuncture technique. A 6 Austrian Rabi sheath was placed in the left common femoral artery. Next, a 6-Austrian pigtail catheter was advanced into the aorta and positioned in the aortic root, aortic root angiography was performed to determine optimal deployment angle. The right common femoral artery was accessed using modified Seldinger technique, micropuncture technique and under direct ultrasound guidance. Femoral angiogram was done showing access in the common femoral artery and a 6Fr sheath was placed. Next preclose technique was performed using a two Perclose. Next a 0.035 Safari wire was placed in the Aorta via a pigtail catheter. Then we placed 14-Austrian sheath at the right common femoral artery. The sheath was advanced under fluoroscopy guidance and subsequently the sheath was secured using a stitch. Next a 6F- AL1 catheter was advanced over a wire to the aortic root. A straight wire was advanced through the catheter and used to cross the severely stenotic valve. The AL1 was then exchanged for a 6Fr pigtail catheter and pressure measurements were obtained. The 0.035 Safari wire was then positioned in the apex. Next a 23 mm Barone Eva was advanced. The valve and balloon where repositioned in the descending thoracic aorta are subsequently the valve and the balloon where capture inside the sheath and then the whole device was advanced around the aortic arch with using flax. The valve was then positioned across the aortic valve and confirmed with aortic root angiography.The valve was then deployed in proper position using slow deployment and with rapid pacing in conjuncture with aortic root angiography and HERMINIO. The delivery system was withdrawn back into the arch and an aortic root injection in conjunction with HERMINIO demonstrated a satisfactory r esult. There was mild para valvular leak. There was no evidence of any other significant abnormalities. The preclose Perclose was then deployed in the right femoral artery and hemostasis was achieved using two Perclose and one Angioseal. Going up and over was done using a rim catheter and injection through the rim was performed to assure that there is good hemostasis in the right common femoral artery. The left femoral angiogram demonstrated an arteriotomy in the common femoral artery and this was repaired using a 6F angioseal device with complete hemostasis. The temporary venous pacemaker was pulled out. The patient was then transported to the ICU in hemodynamically stable condition, requiring no pressor support. COMPLICATIONS: None RECOMMENDATIONS: The patient will be monitored in the ICU for hemodynamic and electrical stability.
[2022-04-02 10:36] LABS: Glucose,Whole Blood 145 mg/dL (75-99)
[2022-04-02] MEDS ORDERED: ACETAMINOPHEN TAB 325 MG TAB PO PRN (10:42)
[2022-04-02] MEDS ORDERED: FLUTICASONE 50MCG/SPRAY NASAL 16GM EA NOSTRIL PRN (10:42)
[2022-04-02] MEDS ORDERED: ONDANSETRON 4 MG/2 ML VIAL IVP PRN (10:42)
[2022-04-02] MEDS ORDERED: IPRATROPIUM-ALBUTEROL 3 ML NEB INHALATION PRN (10:42)
[2022-04-02] MEDS ORDERED: ALBUTEROL HFA INHALER INHALATION PRN (10:42)
--- NOTE | 2022-04-02 11:15 | XR ---
EXAMINATION TYPE: XR chest 1V portable DATE OF EXAM: 04/02/2022 CLINICAL HISTORY: Postopen cardiac surgery. TECHNIQUE: Single AP portable semiupright view of the chest is obtained. COMPARISON: Chest x-ray from January 16, 2022. CTA chest March 15, 2022 FINDINGS: There is new Right internal jugular pacemaker lead terminating in right ventricle. New St ent graft in the aortic root is identified. Left sided overlying recorder device is noted. Overlying EKG leads again seen. Background chronic emphysematous change with diminished inspiration and bibasilar opacities favoring atelectatic change. Mild cardiomegaly with atherosclerotic thoracic aorta on current study. No pneumo thorax seen bilaterally. Osseous structures are intact. IMPRESSION: As above.
[2022-04-02 11:17] LABS: Basophils # (A) 0.1 k/uL (0-0.2); Basophils % (A) 1 %; Eosinophils # (A) 0.1 k/uL (0-0.7); Eosinophils % (A) 1 %; HCT 37.3 % (34.0-46.0); HGB 12.2 gm/dL (11.4-16.0); Lymphocytes # (A) 2.4 k/uL (1.0-4.8); Lymphocytes % (A) 26 %; MCH 33.5 pg (25.0-35.0); MCHC 32.8 g/dL (31.0-37.0); MCV 102.2 fL (80.0-100.0); Macrocytosis Slight; Monocytes # (A) 0.5 k/uL (0-1.0); Monocytes % (A) 5 %; Neutrophils % (A) 65 %; Platelet Count 240 k/uL (150-450); RBC 3.65 m/uL (3.80-5.40); WBC 9.1 k/uL (3.8-10.6)
[2022-04-02] MEDS: LACTATED RINGERS 1,000 ML IV SCH (11:19)
[2022-04-02 11:28] LABS: Partial Thromboplastin Time 25.3 sec (22.0-30.0); Prothrombin Time 10.8 sec (9.0-12.0)
[2022-04-02 11:31] LABS: Ionized Calcium 4.9 mg/dL (4.5-5.3)
[2022-04-02 11:46] LABS: ALT 18 U/L (4-34); AST 25 U/L (14-36); African American GFR (CKD) >90 (>60 ml/min/1.73 sqM); Albumin 3.2 g/dL (3.5-5.0); Alkaline Phosphatase 100 U/L (38-126); Anion Gap 6 mmol/L; Blood Urea Nitrogen 17 mg/dL (7-17); Calcium 8.1 mg/dL (8.4-10.2); Carbon Dioxide 22 mmol/L (22-30); Chloride 110 mmol/L (98-107); Glucose 139 mg/dL (74-99); Magnesium 1.6 mg/dL (1.6-2.3); Non-African American GFR(CKD) 85 (>60 ml/min/1.73 sqM); Potassium 4.6 mmol/L (3.5-5.1); Sodium 138 mmol/L (137-145); Total Protein 5.6 g/dL (6.3-8.2)
[2022-04-02] MEDS ORDERED: HYDROcodone/APAP 5-325MG 1 EACH TAB PO PRN ×2 (12:30)
[2022-04-02] MEDS ORDERED: hydrALAZINE HCL 20 MG/ML 1 ML VIAL IVP PRN (13:04)
[2022-04-02] MEDS: INSULIN ASPART (NovoLOG) 100 UNIT/ML VIAL SQ SCH ×3 (13:09→21:44)
[2022-04-02] MEDS: MAGNESIUM SULFATE-D5W PMX 1 GM in DEXTROSE/WATER 1 100ML.BAG IVPB SCH ×2 (13:29→14:38)
--- NOTE | 2022-04-02 14:36 | P.CNPUL ---
History of Present Illness Consult date: 04/02/22 Requesting physician: Tao Luo Reason for consult: other (ICU management) Chief complaint: Status post percutaneous aortic valve replacement History of present illness: This is a 71-year-old female with history of multiple medical problems including hypertension, type 2 diabetes, extensive smoking history, patient is at least a 65-[id number]-alho smoker, history of severe aortic valve stenosis, CVA 7, history of obstructive sleep apnea syndrome, normally on CPAP, history of cervical and colon cancer, status post chemo and radiation treatment, currently in remission. Patient is not oxygen dependent. Workup by cardiology in the past 1 year showe severe aortic stenosis with moderate aortic regurgitation and preserved LV systolic function. Patient has been complaining of shortness of breath on exertion, has also been complaining of chest discomfort, and she has chronic atrial fibrillation. Recently the patient was discussed at the valve clinic with multidisciplinary approach with cardiothoracic surgery, and it was decided to treat patient best with TaVR. Today, the patient underwent uneventful T aVR, postoperatively she was sent to the ICU, and I was asked to see her on consulta tion. During my evaluation, the patient had no complaints, no shortness of breath no cough no wheezing no chest pain. Chest x-ray showed minimal left basilar atelectasis. Otherwise unremarkable Review of Systems Constitutional: Denies chills, Denies fever Eyes: denies blurred vision, denies pain Ears, nose, mouth and throat: Denies headache, Denies sore throat Cardiovascular: As noted in HPI Respiratory: As noted in HPI Gastrointestinal: Denies abdominal pain, Denies diarrhea, Denies nausea, Denies vomiting Genitourinary: Denies dysuria, Denies hematuria Musculoskeletal: Denies myalgias Integumentary: Denies pruritus, Denies rash Neurological: Denies numbness, Denies weakness Psychiatric: Denies anxiety, Denies depression Endocrine: Denies fatigue, Denies weight change Past Medical History Past Medical History: Cancer, CVA/TIA, Diabetes Mellitus, GERD/Reflux, Hyperlipidemia, Hypertension, Osteoarthritis (OA), Sleep Apnea/CPAP/BIPAP Additional Past Medical History / Comment(s): states 7 strokes, states left foot drop, and wears an AFO, hx of cervical CA, and colon CA 2002, had chemo and radiation, restless leg, neuropathy tr legs, states has had weight loss, at one time weighed 545lbs, uses CPAP History of Any Multi-Drug Resistant Organisms: None Reported Past Surgical History: Bowel Resection, Heart Catheterization, Heart Catheterization With Stent, Hernia Repair, Hysterectomy, Joint Replacement, Pacemaker Additional Past Surgical History / Comment(s): hx of colostomy, and then reversal, tr cataract sx, left hip replaced, states had 5 hernia repairs with mesh, loop recorder, recent heart cath., panniculectomy, recent aortogram Past Anesthesia/Blood Transfusion Reactions: No Reported Reaction Date of Last Stent Placement:: 2013 Type of Cardiac Device: Loop Device Placement Date:: 12/23/20 Smoking Status: Former smoker - Past Family History Brother(s) Family Medical History: Cancer Sister(s) History Unknown: Yes Daughter(s) History Unknown: Yes Son(s) Family Medical History: No Reported History Father Family Medical History: Cancer, Coronary Artery Disease (CAD), Diabetes Mellitus Mother Family Medical History: Coronary Artery Disease (CAD), CVA/TIA, [facility] Medications and Allergies Home Medications Medication Instructions Recorded Confirmed Type Albuterol Inhaler [Ventolin Hfa 2 puff INHALATION RT-QID PRN 10/17/21 04/02/22 History Inhaler] Multivit-Min/Iron/Folic/Lutein 1 tab PO BID 10/17/21 04/02/22 History [Centrum Silver Women Tablet] Sertraline [Zoloft] 50 mg PO DAILY 10/18/21 04/02/22 History Apixaban [Eliquis] 5 mg PO BID #60 tab 10/21/21 03/31/22 Rx Atorvastatin [Lipitor] 40 mg PO HS #30 tablet 10/21/21 04/02/22 Rx Insulin NPH Human Isophane 30 units SQ QAM 01/16/22 04/02/22 History [NovoLIN N] Omeprazole [PriLOSEC] 20 mg PO DAILY 01/16/22 04/02/22 History Pramipexole Di-HCl [Mirapex] 0.125 mg PO HS 01/17/22 04/02/22 History Acetaminophen Tab [Tylenol] 650 mg PO Q6HR PRN tab 01/21/22 03/31/22 Rx Baclofen 10 mg PO HS 02/06/22 04/02/22 History Fluticasone Nasal [place] [Flonase 2 spray EA NOSTRIL DAILY PRN 02/06/22 04/02/22 History Nasal [place]] INSULIN ASPART (NovoLOG) [NovoLOG See Protocol SQ ACHS 02/06/22 04/02/22 History (formulary)] Nitroglycerin Sl Tabs [Nitrostat] 0.4 mg SUBLINGUAL Q5M PRN 02/06/22 03/31/22 History Varenicline [Chantix Continuing 1 mg PO DAILY 02/06/22 04/02/22 History Pack] amLODIPine [Norvasc] 10 mg PO DAILY 02/06/22 04/02/22 History Insulin NPH Human Isophane 35 units SQ HS 03/31/22 04/02/22 History [NovoLIN N] metFORMIN HCL [Glucophage] 1,000 mg PO BID 03/31/22 04/02/22 History Allergies Allergy/AdvReac Type Severity Reaction Status Date / Time bee venom protein (honey bee) Allergy Anaphylaxis Verified 04/02/22 06:47 cephalexin [From Keflex] Allergy Rash/Hives Verified 04/02/22 06:47 codeine Allergy rash, Verified 04/02/22 06:47 swelling latex Allergy Rash/Hives Verified 04/02/22 06:47 Penicillins Allergy Swelling Verified 04/02/22 06:47 Sulfa (Sulfonamide Allergy Unknown Verified 04/02/22 06:47 Antibiotics) Physical Exam Vitals: Vital Signs Temp Pulse Pulse Resp BP BP BP 04/02/22 13:00 48 L 14 165/80 04/02/22 12:45 44 L 6 L 04/02/22 12:30 47 L 12 142/87 04/02/22 12:15 49 L 10 L 04/02/22 12:00 97.8 F 42 L 5 L 04/02/22 11:45 47 L 6 L 04/02/22 11:30 44 L 15 91/57 04/02/22 11:15 49 L 4 L 91/57 04/02/22 11:00 46 L 8 L 91/57 04/02/22 10:45 48 L 13 91/57 04/02/22 10:30 46 L 12 91/57 04/02/22 10:18 49 L 31 H 04/02/22 07:12 98.1 F 71 16 129/71 135/71 Pulse Ox 04/02/22 13:00 100 04/02/22 12:45 99 04/02/22 12:30 99 04/02/22 12:15 98 04/02/22 12:00 99 04/02/22 11:45 98 04/02/22 11:30 98 04/02/22 11:15 99 04/02/22 11:00 100 04/02/22 10:45 98 04/02/22 10:30 97 04/02/22 10:18 04/02/22 07:12 96 Intake and Output 04/01/22 04/02/22 04/02/22 22:59 06:59 14:59 Intake Total 100 700 Output Total 0 Balance 100 700 Intake: IV 100 600 Intake, IV Titration 100 Amount Lactated Ringers 1,000 ml 100 @ 50 mls/hr IV .Q20H [facility] Rx#:[id number] Output: Urine 0 Other: Weight 89.1 kg 89.1 kg ABP, PAP, CO, CI - Last 8 Hours Arterial Blood Pressure 173/63 Arterial Blood Pressure 179/63 Arterial Blood Pressure 168/62 Arterial Blood Pressure 180/64 Arterial Blood Pressure 171/60 Arterial Blood Pressure 162/58 Arterial Blood Pressure 170/64 Arterial Blood Pressure 170/61 Arterial Blood Pressure 147/62 Arterial Blood Pressure 133/51 Arterial Blood Pressure 92/36 Physical Exam: Revealed a 71-year-old female in no distress, on 3 L nasal cannula. O2 sat is 99% Head: Atraumatic normocephalic. HEENT:[Neck is supple.] [No neck masses.] [No thyromegaly.] [No JVD.] Chest: [Diminished breath sounds at the bases no crackles or rhonchi or wheezes Cardiac Exam: [Normal S1 and S2, no S3 gallop, 2/6 systolic murmur thought the precordium Abdomen: [Obese, Soft, nontender, no megaly, no rebound, no guarding, normal bowel sounds.] Extremities: [No clubbing, no edema, no cyanosis.] Neurological Exam: Alert and oriented 3. [No focal neurologic deficit.] Psychiatric: Normal mood, affect and normal mental status exam. Skin: No rashes. Results - Laboratory Findings CBC and BMP: 04/02/22 10:30 04/02/22 10:30 PT/INR, D-dimer PT 10.8 sec (9.0-12.0) 04/02/22 10:30 INR 1.0 (<1.2) 04/02/22 10:30 Abnormal lab findings: Abnormal Labs 04/01/22 04/02/22 04/02/22 09:28 06:49 10:30 RBC 3.65 L MCV 102.2 H Chloride Glucose POC Glucose (mg/dL) 155 H Calcium Total Protein Albumin Crossmatch See Detail 04/02/22 04/02/22 10:30 10:34 RBC MCV Chloride 110 H Glucose 139 H POC Glucose (mg/dL) 145 H Calcium 8.1 L Total Protein 5.6 L Albumin 3.2 L Crossmatch - Diagnostic Findings Chest x-ray: image reviewed (As noted in HPI) Assessment and Plan Plan: Impression: Severe aortic stenosis Status post T aVR, postoperative day #0. History of syncope secondary to severe aortic stenosis Paroxysmal atrial fibrillation, on eliquis Coronary artery disease and previous stent placement Benign essential hypertension Type 2 diabetes Dyslipidemia History of CVA [id number] smoking history, no active COPD symptoms History of colon cancer and previous colostomy with subsequent reversal History of cervical cancer, and remission Recommendation: Resume eliquis. Resume home medications including Norvasc, atorvastatin, baclofen, Plavix, hydralazine, Close monitoring of her sugars and treat accordingly with insulin. Resume blood pressure medications including metoprolol. Continue Chantix 1 mg by mouth daily Continue Protonix. Incentive spirometry and early ambulation Possible discharge planning in the next 24 hours. Time with Patient: Greater than 30
[2022-04-02] MEDS ORDERED: MORPHINE SULFATE 2 MG/ML SYRINGE IVP STA (14:57)
[2022-04-02 16:27] LABS: Glucose,Whole Blood 166 mg/dL (75-99)
[2022-04-02] MEDS: HEPARIN SODIUM,PORCINE/PF 5,000 UNIT/0.5 ML SYRINGE SQ SCH (17:12)
[2022-04-02] MEDS: DEXTROSE IVPB SCH (17:13)
[2022-04-02] MEDS: WATER IVPB SCH (17:13)
[2022-04-02] MEDS: CLINDAMYCIN IVPB SCH (17:13)
[2022-04-02 17:32] LABS: HCT 38.6 % (34.0-46.0); HGB 12.4 gm/dL (11.4-16.0); MCH 32.9 pg (25.0-35.0); MCHC 32.1 g/dL (31.0-37.0); MCV 102.4 fL (80.0-100.0); Macrocytosis Slight; Mean Platelet Volume 8.1; Platelet Count 274 k/uL (150-450); RBC 3.77 m/uL (3.80-5.40); WBC 14.2 k/uL (3.8-10.6)
--- NOTE | 2022-04-02 17:39 | US ---
EXAMINATION TYPE: US lower ext pseudo artery LT DATE OF EXAM: 04/02/2022 COMPARISON: 03/27/2022 CLINICAL HISTORY: R/O pseudoaneurysm. EXAM PERFORMED: Grayscale and color Doppler duplex imaging performed of the groin, post cardiac melo ter to assess for pseudoaneurysm. SIDE PERFORMED: Left Color and Waveform Doppler performed to assess for the presence of pseudoaneurysm; Is there ultrasound evidence of a pseudoaneurysm: no Is there evidence of AV shunting: no There are 3 probable hematomas measuring 4.3 x 0.5 x 1.4cm, 3.1 x 1.7 x 3.4 and 6.4 x 2.7 x 6.4cm IMPRESSION: No evidence of left common femoral pseudoaneurysm. Hypoechoic areas within the right inguinal/groin soft tissues compatible with hematomas.
[2022-04-02] MEDS ORDERED: INSULIN NPH 300 UNIT/3 ML VIAL SQ SCH (21:00)
[2022-04-02] MEDS ORDERED: BACLOFEN 10 MG TAB PO SCH (21:00)
[2022-04-02] MEDS ORDERED: ATORVASTATIN 40 MG TAB PO SCH (21:00)
[2022-04-02] MEDS ORDERED: PRAMIPEXOLE 0.125 MG TAB PO SCH (21:00)
[2022-04-02] MEDS ORDERED: APIXABAN 5 MG TAB PO SCH (21:00)
[2022-04-02] MEDS ORDERED: METOPROLOL TARTRATE 12.5 MG TAB PO SCH (21:00)
[2022-04-02 21:29] LABS: Glucose,Whole Blood 219 mg/dL (75-99)
[2022-04-02] MEDS: BENZOCAINE/MENTHOL LOZENG 1 EACH LOZENGE MUCOUS MEM PRN (22:13)
[2022-04-03] MEDS: HEPARIN SODIUM,PORCINE/PF 5,000 UNIT/0.5 ML SYRINGE SQ SCH ×2 (00:42→08:25)
[2022-04-03] MEDS: WATER IVPB SCH (00:43)
[2022-04-03] MEDS: CLINDAMYCIN IVPB SCH (00:43)
[2022-04-03] MEDS: DEXTROSE IVPB SCH (00:43)
[2022-04-03 04:50] LABS: Basophils % (A) 0 %; Eosinophils # (A) 0.1 k/uL (0-0.7); Eosinophils % (A) 1 %; HCT 35.9 % (34.0-46.0); Lymphocytes # (A) 1.5 k/uL (1.0-4.8); Lymphocytes % (A) 15 %; MCH 34.1 pg (25.0-35.0); MCHC 33.3 g/dL (31.0-37.0); MCV 102.4 fL (80.0-100.0); Macrocytosis Slight; Mean Platelet Volume 7.6; Monocytes # (A) 0.6 k/uL (0-1.0); Monocytes % (A) 6 %; Neutrophils # (A) 7.6 k/uL (1.3-7.7); Neutrophils % (A) 77 %; Platelet Count 229 k/uL (150-450); RDW 13.8 % (11.5-15.5); WBC 9.9 k/uL (3.8-10.6)
[2022-04-03 04:58] LABS: Ionized Calcium 4.9 mg/dL (4.5-5.3)
[2022-04-03 05:10] LABS: ALT 17 U/L (4-34); AST 25 U/L (14-36); African American GFR (CKD) >90 (>60 ml/min/1.73 sqM); Albumin 3.3 g/dL (3.5-5.0); Alkaline Phosphatase 92 U/L (38-126); Anion Gap 3 mmol/L; Blood Urea Nitrogen 17 mg/dL (7-17); Calcium 8.4 mg/dL (8.4-10.2); Carbon Dioxide 26 mmol/L (22-30); Chloride 106 mmol/L (98-107); Glucose 109 mg/dL (74-99); Non-African American GFR(CKD) 90 (>60 ml/min/1.73 sqM); Potassium 3.9 mmol/L (3.5-5.1); Sodium 135 mmol/L (137-145); Total Protein 5.8 g/dL (6.3-8.2)
[2022-04-03] MEDS ORDERED: Potassium Replacement Protocol 1 EACH MISC MISCELLANE PRN (05:40)
[2022-04-03] MEDS ORDERED: POTASSIUM CHLORIDE ER 20 MEQ TAB.ER PO SCH (06:00)
[2022-04-03] MEDS: INSULIN ASPART (NovoLOG) 100 UNIT/ML VIAL SQ SCH ×2 (06:32→12:30)
[2022-04-03] MEDS ORDERED: PANTOPRAZOLE 40 MG TABLET PO SCH (07:30)
[2022-04-03] MEDS: LACTATED RINGERS 1,000 ML IV SCH (07:58)
[2022-04-03] MEDS: BENZOCAINE/MENTHOL LOZENG 1 EACH LOZENGE MUCOUS MEM PRN (08:24)
[2022-04-03] MEDS ORDERED: amLODIPine 10 MG TAB PO SCH (09:00)
[2022-04-03] MEDS ORDERED: CLOPIDOGREL 75 MG TAB PO SCH (09:00)
[2022-04-03] MEDS ORDERED: MULTIVITAMINS, THERA 1 EACH TAB PO SCH (09:00)
[2022-04-03] MEDS ORDERED: SERTRALINE 50 MG TAB PO SCH (09:00)
[2022-04-03] MEDS ORDERED: APIXABAN 5 MG TAB PO SCH (09:00)
[2022-04-03] MEDS ORDERED: VARENICLINE 1 MG TAB PO SCH (09:00)
[2022-04-03] MEDS ORDERED: INSULIN NPH 300 UNIT/3 ML VIAL SQ SCH (09:00)
--- NOTE | 2022-04-03 09:01 | XR ---
EXAMINATION TYPE: XR chest 1V portable DATE OF EXAM: 04/03/2022 HISTORY: Shortness of breath. COMPARISON: 04/02/2022 TECHNIQUE: Single view of the chest is submitted. FINDINGS: Demonstrated are scattered senescent parenchymal change. There is no evidence for focal infiltrate. The heart is stable. Stent graft aortic root is unchanged in position as is right internal jugular pa cemaker. Recorder device is also noted. Hilar and mediastinal structures are within normal limits. Degenerative changes are seen of the dorsal spine. IMPRESSION: 1. Chronic changes without evidence for acute pulmonary disease.
--- NOTE | 2022-04-03 09:49 | CA ---
Transthoracic Echo Report Name: Milka Floyd Age: 71 Gender: F : 1950 Exam Date: 04/03/2022 08:11 Exam Location: [facility] Ht (in): 66 Wt (lb): 196 Ordering Physician: Yina Almeida Attending/Referring Phys: [id number], Elle Outside Deliverer Yina Jade RDCS Procedure CPT: Indications: post TAVR Cardiac Hx: Technical Quality: Poor Contrast 1: Lumason Total Dose (mL): 1 Contrast 2: Total Dose (mL): MEASUREMENTS (Male / Female) Normal Values 2D ECHO LV Diastolic Diameter PLAX 3.9 cm 4.2 - 5.9 / 3.9 - 5.3 cm LV Systolic Diameter PLAX 2.8 cm IVS Diastolic Thickness 1.5 cm 0.6 - 1.0 / 0.6 - 0.9 cm LVPW Diastolic Thickness 1.7 cm 0.6 - 1.0 / 0.6 - 0.9 cm LV Relative Wall Thickness 0.8 M-MODE Aortic Root Diameter MM 3.1 cm LA Systolic Diameter MM 3.2 cm LA Ao Ratio MM 1.0 AV Cusp Separation MM 1.5 cm DOPPLER AV Peak Velocity 223.0 cm/s AV Peak Gradient 19.9 mmHg AV Mean Velocity 153.3 cm/s AV Mean Gradient 11.3 mmHg AV Velocity Time Integral 45.2 cm LVOT Peak Velocity 174.9 cm/s LVOT Peak Gradient 12.2 mmHg MV Peak Velocity 175.3 cm/s MV Peak Gradient 12.3 mmHg MV Mean Velocity 89.1 cm/s MV Mean Gradient 4.0 mmHg MV Velocity Time Integral 46.4 cm MV Area PHT 2.0 cm??? MR Peak Velocity 127.6 cm/s MR Peak Gradient 6.5 mmHg Mitral E Point Velocity 105.3 cm/s Mitral A Point Velocity 112.3 cm/s Mitral E to A Ratio 0.9 MV Deceleration Time 368.1 ms TR Peak Velocity 131.8 cm/s TR Peak Gradient 7.0 mmHg Right Ventricular Systolic Press 12.0 mmHg FINDINGS Left Ventricle Moderately increased septal wall thickness. Severely increased posterior wall thickness. Left ventricular ejection fraction is estimated at _55-60_ %. Left ventricular cavity size normal. Right Ventricle The right ventricle is normal in size and function. Right Atrium The right atrium is normal in size. Left Atrium The left atrium is normal in size. Mitral Valve There is mild mitral regurgitation. Mitral valve thickened. Mild mitral annular calcification. Mild mitral stenosis. Aortic Valve Post TAVR.. There is no aortic regurgitation. Normally functioning Eva #__ bioprosthetic aortic valve without stenosis with a peak velocity of m/s, peak gradient 19 mmHg, mean gradient 11 mmHg, and estimated aortic valve area of cm???. Tricuspid Valve Structurally normal tricuspid valve without significant stenosis. Pulmonary artery systolic pressure is normal. Mild tricuspid regurgitation. Pulmonic Valve Structurally normal pulmonic valve without significant stenosis. There is no pulmonic regurgitation. Pericardium Normal pericardium without effusion. Aorta Normal aortic root dimension. CONCLUSIONS The cardiac difficult study for interpretation No evidence of pericardial effusion Transcatheter valve was identified with a peak gradient of 20 and mean of 11 mmHg No evidence of pericardial effusion Previewed by: Dr. Tao Luo MD (Electronically Signed) Final Date: 03 Apr 2022 09:48
[2022-04-03 10:34] VITALS: BMI 32.4
--- NOTE | 2022-04-03 11:14 | P.DS ---
Providers Date of admission: 04/02/22 06:17 Expected date of discharge: 04/03/22 Attending physician: Tao Luo Consults: 04/02/22 06:00 Consult to Anesthesia Routine Consulting Provider: Anesthesia,Services Consult Reason/Comments: Cardiac Surgery Pre-Op 04/02/22 10:42 Consult Physician Routine Consulting Provider: Imer Brower Consult Reason/Comments: Infectious Disease Physician Consult: post cardiac surgery Do you want consulting provider notified?: Yes Consult Physician Routine Consulting Provider: Bakari Saini Consult Reason/Comments: Dispensing Optician Consult: post cardiac surgery Do you want consulting provider notified?: Yes Primary care physician: Zhang Holguin [facility] Hospital Course: MEDICAL HISTORY: 1. Calcified aortic valve with severe symptomatic aortic valve stenosis 2. Shortness of breath consistent with NYHA class II 3. History of CAD status post PCI 4. History of paroxysmal atrial fibrillation on Eliquis for anticoagulation 5. Obstructive sleep apnea on CPAP use 6. History of colon cancer status post chemo and radiation as well as bowel resection 7. History of multiple CVAs in the past 8. Previous tobacco dependence PROCEDURE: 1. Percutaneous aortic valve replacement using Barone Eva 23 mm 2. Transesophageal echocardiography performed by anesthesia 3. Ultrasound-guided access and repair of right femoral artery access site by Perclose and Angioseal closure device 4. Placement of temporary pacemaker wire 5. Selective bilateral common femoral arteries angiogram HISTORY OF PRESENT ILLNESS: This is a 71-year-old female who follows on an outpatient basis with Dr. Zhang Herron for primary care and Dr. Houston for cardiology. She has a known history of severe aortic stenosis and has been symptomatic with increased exertional dyspnea. She had been referred to structural heart clinic for evaluation for transcatheter aortic valve replacement after heart catheterization and transesophageal echocardiogram were completed. Echocardiography demonstrated normal systolic function with EF 55- 60%, aortic valve area 0.4 cm with a peak/mean gradient 91/54 mmHg. Heart catheterization showed mild nonobstructive coronary artery disease. After workup was completed STS risk score was calculated along with incremental risk and the patient was felt to be increased risk for surgical aortic valve replacement, therefore transcatheter aortic valve replacement was recommended. The usual course of TAVR was discussed in detail the patient, risks and benefits were reviewed, shared decision making between cardiology, surgery, and the patient/family took place, and the patient consented to proceed with the procedure. HOSPITAL COURSE: The patient was brought to the hospital on 04/02/22, was taken to the extended stay area, prepared in the usual fashion, and subsequently taken to the cardiac catheterization laboratory where Dr. Luo and Dr. Saini completed TAVR procedure under general anesthesia with fluoroscopy and HERMINIO. The valve was deployed under rapid ventricular pacing and proceeded without event. At the end of the procedure there was peak/mean gradient 15/8 mmHg, hemodynamics were felt to be acceptable, and there was no evidence of significant perivalvular leak. Upon completion of the procedure the patient was extubated and was transferred to the cardiovascular intensive care unit where she was rambo jayleen and monitored hemodynamically. Her oxygen was titrated down, she was tolerating oral diet, her pain was controlled, follow-up TTE demonstrated normal left ventricular systolic function, normally functioning bioprosthetic aortic valve without stenosis, and she was ready to be discharged to home on postoperative day #1. She received written and verbal instruction regarding her medications, activity restrictions, signs and symptoms requiring physician notification, and follow-up appointments. Patient Condition at Discharge: Stable Plan - Discharge Summary Discharge Rx Participant: No New Discharge Prescriptions: New Clopidogrel [Plavix] 75 mg PO DAILY #30 tab Continue Multivit-Min/Iron/Folic/Lutein [Centrum Silver Women Tablet] 1 tab PO BID Omeprazole [PriLOSEC] 20 mg PO DAILY Insulin NPH Human Isophane [NovoLIN N] 30 units SQ QAM Pramipexole Di-HCl [Mirapex] 0.125 mg PO HS Nitroglycerin Sl Tabs [Nitrostat] 0.4 mg SUBLINGUAL Q5M PRN PRN Reason: Chest Pain INSULIN ASPART (NovoLOG) [NovoLOG (formulary)] See Protocol SQ ACHS Fluticasone Nasal [place] [Flonase Nasal [place]] 2 spray EA NOSTRIL DAILY PRN PRN Reason: allergies Baclofen 10 mg PO HS Varenicline [Chantix Continuing Pack] 1 mg PO DAILY Insulin NPH Human Isophane [NovoLIN N] 35 units SQ HS Albuterol Inhaler [Ventolin Hfa Inhaler] 2 puff INHALATION RT-QID PRN PRN Reason: Shortness Of Breath Sertraline [Zoloft] 50 mg PO DAILY Apixaban [Eliquis] 5 mg PO BID #60 tab Atorvastatin [Lipitor] 40 mg PO HS #30 tablet Acetaminophen Tab [Tylenol] 650 mg PO Q6HR PRN tab PRN Reason: Fever and/ or Mild Pain amLODIPine [Norvasc] 10 mg PO DAILY metFORMIN HCL [Glucophage] 1,000 mg PO BID #0 Discharge Medication List Albuterol Inhaler [Ventolin Hfa Inhaler] 2 puff INHALATION RT-QID PRN 10/17/21 [History] Multivit-Min/Iron/Folic/Lutein [Centrum Silver Women Tablet] 1 tab PO BID 10/17/21 [History] Sertraline [Zoloft] 50 mg PO DAILY 10/18/21 [History] Apixaban [Eliquis] 5 mg PO BID #60 tab 10/21/21 [Rx] Atorvastatin [Lipitor] 40 mg PO HS #30 tablet 10/21/21 [Rx] Insulin NPH Human Isophane [NovoLIN N] 30 units SQ QAM 01/16/22 [History] Omeprazole [PriLOSEC] 20 mg PO DAILY 01/16/22 [History] Pramipexole Di-HCl [Mirapex] 0.125 mg PO HS 01/17/22 [History] Acetaminophen Tab [Tylenol] 650 mg PO Q6HR PRN tab 01/21/22 [Rx] Baclofen 10 mg PO HS 02/06/22 [History] Fluticasone Nasal [place] [Flonase Nasal [place]] 2 spray EA NOSTRIL DAILY PRN 02/06/22 [History] INSULIN ASPART (NovoLOG) [NovoLOG (formulary)] See Protocol SQ ACHS 02/06/22 [History] Nitroglycerin Sl Tabs [Nitrostat] 0.4 mg SUBLINGUAL Q5M PRN 02/06/22 [History] Varenicline [Chantix Continuing Pack] 1 mg PO DAILY 02/06/22 [History] amLODIPine [Norvasc] 10 mg PO DAILY 02/06/22 [History] Insulin NPH Human Isophane [NovoLIN N] 35 units SQ HS 03/31/22 [History] Clopidogrel [Plavix] 75 mg PO DAILY #30 tab 04/03/22 [Rx] metFORMIN HCL [Glucophage] 1,000 mg PO BID #0 04/03/22 [Rx] Follow up Appointment(s)/Referral(s): Delbert Houston MD [STAFF PHYSICIAN] - 04/08/22 3:45 pm (Your appointment 04/[address] Houston for a groin check. You need to report to [facility] for a 30 day post TAVR echo between 04/23/22-06/16/22) Clinic,Structural Heart [NON-STAFF] - (Please come to the valve clinic after your 30 day echo for check up) Zhang Holguin MD [Primary Care Provider] - As Needed Ambulatory/Diagnostic Orders: Complete Blood Count w/diff [LAB.AMB] Time Frame: 30 Days, Facility: [facility], Location: Laboratory [facility] Comprehensive Metabolic Panel [LAB.AMB] Time Frame: 30 Days, Facility: [facility], Location: [facility] Activity/Diet/Wound Care/Special Instructions: DISCHARGE INSTRUCTIONS: 1. No driving for 1 week, or until physician gives their ok. 2. No lifting, pushing, or pulling more than 5-10 pounds for 1 week. 3. Hold both groins when you cough or sneeze for the next 2 weeks. Bruising is common, but report increased swelling, pain or fever >101F 4. Shower daily. No pool, hot tub, or bathtub for 1 week 5. No powders, lotions, ointments on incisions. 6. No straining, including for bowel movements. Use stool softner if necessary 7. Stairs are not an issue. Go slowly, using handrail and take 1 step at a time. Ambulate several times daily 8. Continue pain control per as needed orders. 9. Take only the medications listed on your discharge form 10. Eat low salt (limited to 2 grams or 2000 milligrams) daily, avoid adding salt, avoid canned/processed foods 11. Take your weight daily in the morning and record, bring with you to your follow up appointments 12. Keep all follow up appointments. You will need a valve clinic appointment at 30 days and 1 year post procedure for follow up 13. You have been referred to and are expected to begin Cardiac Rehab in approximately 4 weeks. 14. You will need antibiotics prior to any dental work, including cleanings, and any surgeries to prevent Endocarditis (bacterial infection in your heart) For any questions or concerns please call your valve coordinators: Yina or Donnell @ Discharge Disposition: HOME SELF-CARE
[2022-04-03 12:02] LABS: Glucose,Whole Blood 158 mg/dL (75-99)
[2022-04-03 12:33] VITALS: TEMP 96.6
--- NOTE | 2022-04-03 13:49 | P.PN ---
Subjective Progress Note Date: 04/03/22 Principal diagnosis: Severe aortic stenosis This is a 71-year-old female with history of multiple medical problems including hypertension, type 2 diabetes, extensive smoking history, patient is at least a [id number] smoker, history of severe aortic valve stenosis, CVA 7, history of obstructive sleep apnea syndrome, normally on CPAP, history of cervical and colon cancer, status post chemo and radiation treatment, currently in remission. Patient is not oxygen dependent. Workup by cardiology in the past 1 year showe severe aortic stenosis with moderate aortic regurgitation and preserved LV systolic function. Patient has been complaining of shortness of breath on exert ion, has also been complaining of chest discomfort, and she has chronic atrial fibrillation. Recently the patient was discussed at the valve clinic with multidisciplinary approach with cardiothoracic surgery, and it was decided to treat patient best with TaVR. Today, the patient underwent uneventful T aVR, postoperatively she was sent to the ICU, and I was asked to see her on consultation. During my evaluation, the patient had no complaints, no shortness of breath no cough no wheezing no chest pain. Chest x-ray showed minimal left basilar atelectasis. Otherwise unremarkable Reevaluated today on 04/03/22, patient is postoperative day #1, she is doing well, asymptomatic, being considered for discharge home today. No hemodynamic issues, no pulmonary or cardiac issues. Patient is eating better than she felt prior to her surgery Objective - Vital Signs Vital signs: Vital Signs Temp 96.6 F L 04/03/22 12:00 Pulse 83 04/03/22 13:00 Resp 27 H 04/03/22 13:00 BP 125/69 04/03/22 13:00 Pulse Ox 90 L 04/03/22 13:00 Intake & Output 04/02/22 04/03/22 04/03/22 18:59 06:59 18:59 Intake Total 1920 1730 50 Output Total 300 750 Balance 1620 980 50 Weight 89.1 kg 91.2 kg 91.2 kg Intake: IV 600 600 50 Lactated Ringers 1,000 ml 600 50 @ 50 mls/hr IV .Q20H ALIYAH Rx#:[id number] Intake, IV Titration 600 50 Amount Clindamycin 600 mg In 50 Dextrose/Water 1 50ml.bag @ 3.704 mls/hr IVPB Q6HR ALIYAH Rx#:[id number] Lactated Ringers 1,000 ml 350 50 @ 50 mls/hr IV .Q20H ALIYAH Rx#:[id number] Magnesium Sulfate-D5w Pmx 200 1 gm In Dextrose/Water 1 100ml.bag @ 100 mls/hr IVPB Q1H ALIYAH Rx#: [id number] Oral 720 1080 Output: Urine 300 750 Other: # Voids 0 1 ABP, PAP, CO, CI - Last Documented Arterial Blood Pressure 154/56 - Exam Physical Exam: Revealed a 71-year-old female in no distress, on room air. Head: Atraumatic normocephalic. HEENT:[Neck is supple.] [No neck masses.] [No thyromegaly.] [No JVD.] Chest: [Diminished breath sounds at the bases no crackles or rhonchi or wheezes Cardiac Exam: [Normal S1 and S2, no S3 gallop, 2/6 systolic murmur thought the precordium Abdomen: [Obese, Soft, nontender, no megaly, no rebound, no guarding, normal bowel sounds.] Extremities: [No clubbing, no edema, no cyanosis.] Neurological Exam: Alert and oriented 3. [No focal neurologic deficit.] Psychiatric: Normal mood, affect and normal mental status exam. Skin: No rashes. - Labs CBC & Chem 7: 04/03/22 04:20 04/03/22 04:20 Labs: Abnormal Lab Results - Last 24 Hours (Table) 04/01/22 04/02/22 04/02/22 Range/Units 09:28 16:26 16:26 WBC 14.2 H (3.8-10.6) k/uL RBC 3.77 L (3.80-5.40) m/uL MCV 102.4 H (80.0-100.0) fL Sodium (137-145) mmol/L Glucose (74-99) mg/dL POC Glucose (mg/dL) 166 H (75-99) mg/dL Total Protein (6.3-8.2) g/dL Albumin (3.5-5.0) g/dL Crossmatch See Detail 04/02/22 04/03/22 04/03/22 Range/Units 21:27 04:20 04:20 WBC (3.8-10.6) k/uL RBC 3.50 L (3.80-5.40) m/uL MCV 102.4 H (80.0-100.0) fL Sodium 135 L (137-145) mmol/L Glucose 109 H (74-99) mg/dL POC Glucose (mg/dL) 219 H (75-99) mg/dL Total Protein 5.8 L (6.3-8.2) g/dL Albumin 3.3 L (3.5-5.0) g/dL Crossmatch 04/03/22 Range/Units 12:00 WBC (3.8-10.6) k/uL RBC (3.80-5.40) m/uL MCV (80.0-100.0) fL Sodium (137-145) mmol/L Glucose (74-99) mg/dL POC Glucose (mg/dL) 158 H (75-99) mg/dL Total Protein (6.3-8.2) g/dL Albumin (3.5-5.0) g/dL Crossmatch Assessment and Plan Plan: Impression: Severe aortic stenosis Status post T aVR, postoperative day #1 History of syncope secondary to severe aortic stenosis Paroxysmal atrial fibrillation, on eliquis Coronary artery disease and previous stent placement Benign essential hypertension Type 2 diabetes Dyslipidemia History of CVA [id number] smoking history, no active COPD symptoms History of colon cancer and previous colostomy with subsequent reversal History of cervical cancer, and remission Recommendation: Continue present treatment plan. Discharge planning is in progress. Time with Patient: Less than 30
[2022-04-03 15:07] VITALS: BP 136/68; PULSE 83; RESP 20
[2022-04-03] MEDS ORDERED: SENNOSIDES-DOCUSATE SODIUM 1 EACH TAB PO SCH (21:00)
== END 2022-04-03 16:00 | disposition home or self-care (01) | DRG 267 ==
LOC: 2ORMAIN 04-02 06:17 → 2SICU 04-02 09:55
PROVIDERS: ADMIT Internal Medicine Interventional Cardiology; ATTEND Internal Medicine Interventional Cardiology
PROC: 02RF38Z Replacement of Aortic Valve with Zooplastic Tissue, Percutaneous Approach (ICD-10-PCS; principal; 2022-04-02 08:30)
PROC: B24BZZ4 Ultrasonography of Heart with Aorta, Transesophageal (ICD-10-PCS; 2022-04-02 08:30)
DX: I08.0 Rheumatic disorders of both mitral and aortic valves (principal); Z00.6 Encounter for examination for normal comparison and control in clinical research program; I48.20 Chronic atrial fibrillation, unspecified; E11.42 Type 2 diabetes mellitus with diabetic polyneuropathy; E78.5 Hyperlipidemia, unspecified; G47.33 Obstructive sleep apnea (adult) (pediatric); I10 Essential (primary) hypertension; E66.01 Morbid (severe) obesity due to excess calories; I25.10 Atherosclerotic heart disease of native coronary artery without angina pectoris; G25.81 Restless legs syndrome; K21.9 Gastro-esophageal reflux disease without esophagitis; Z96.642 Presence of left artificial hip joint; Z85.038 Personal history of other malignant neoplasm of large intestine; Z85.41 Personal history of malignant neoplasm of cervix uteri; Z79.01 Long term (current) use of anticoagulants; Z79.4 Long term (current) use of insulin; Z79.84 Long term (current) use of oral hypoglycemic drugs; Z79.899 Other long term (current) drug therapy; Z86.73 Personal history of transient ischemic attack (TIA), and cerebral infarction without residual deficits; Z68.32 Body mass index [BMI] 32.0-32.9, adult; Z87.891 Personal history of nicotine dependence; Z98.42 Cataract extraction status, left eye; Z98.41 Cataract extraction status, right eye; Z90.49 Acquired absence of other specified parts of digestive tract; Z90.710 Acquired absence of both cervix and uterus; Z92.21 Personal history of antineoplastic chemotherapy; Z92.3 Personal history of irradiation; Z95.5 Presence of coronary angioplasty implant and graft; Z82.3 Family history of stroke; Z82.49 Family history of ischemic heart disease and other diseases of the circulatory system; Z83.3 Family history of diabetes mellitus
CPT/HCPCS: 71045; 80053; 82330; 83735; 85025; 85027; 85610; 85730; 86850; 86900; 86901; 86920; 93306; 93312; 93320; 93325; 93975

== ENCOUNTER 2022-03-26 10:37 | Day surgery (SDC) | payer MEDICARE ==
[2022-03-25 12:20] VITALS: BMI 32.1
[~2022-03-26 10:37] MED LIST changes: -ACETAMINOPHEN TAB 500 MG TAB PO PRN; +ALPRAZolam 0.25 MG TAB PO PRN; +ASPIRIN 325 MG TAB PO PRN; -CLINDAMYCIN 900 MG in DEXTROSE 5% IN WATER 50 ML IVPB PRN; -DEXAMETHASONE SOD PHOSPHATE 4 MG/ML 1 ML VIAL IV ONE; +HEPARIN SODIUM,PORCINE 10,000 UNIT in SODIUM CHLORIDE 0.9% 1,000 ML IRRIGATION PRN; +HEPARIN SODIUM,PORCINE 2,500 UNIT in SODIUM CHLORIDE 0.9% 250 ML IRRIGATION PRN; -HEPARIN SODIUM,PORCINE/PF 5,000 UNIT/0.5 ML SYRINGE SQ PRN; -LACTATED RINGERS 1,000 ML IV SCH; -LIDOCAINE 1% (10MG/ML) FOR IV START INTRADERMA PRN; -ONDANSETRON 4 MG/2 ML VIAL IVP ONE; +SODIUM CHLORIDE 0.9% 1,000 ML in EMPTY BAG 1 BAG IV ONE; +ZOLPIDEM 5 MG TAB PO PRN
[2022-03-26 11:20] LABS: Glucose,Whole Blood 130 mg/dL (75-99)
[2022-03-26] MEDS ORDERED: MIDAZOLAM 2 MG/2 ML VIAL IV ONE (14:13)
[2022-03-26] MEDS ORDERED: LIDOCAINE 1% INJ 10MG/ML (30 ML VIAL-PF) SQ ONE (14:15)
[2022-03-26] MEDS ORDERED: HYDROmorphone 0.5 MG/0.5 ML SYRINGE IVP ONE (14:16)
[2022-03-26] MEDS ORDERED: IV FLUID CONTINUATION 1,000 ML IV ONE (14:18)
[2022-03-26] MEDS ORDERED: HEPARIN SODIUM 1,000 UN/ML (10ML VL) IV ONE (14:30)
[2022-03-26] MEDS ORDERED: IOPAMIDOL-250 100ML BTL INTRAARTER ONE (14:45)
[2022-03-26] MEDS ORDERED: NALOXONE 0.4 MG/ML 1 ML VIAL IVP PRN (14:50)
[2022-03-26] MEDS ORDERED: ALBUTEROL NEBULIZED 2.5 MG/3 ML INHALATION PRN (14:53)
[2022-03-26] MEDS ORDERED: FLUTICASONE 50MCG/SPRAY NASAL 16GM EA NOSTRIL PRN (14:53)
[2022-03-26] MEDS ORDERED: NITROGLYCERIN SL TABS 0.4 MG TAB SUBLINGUAL PRN (14:53)
--- NOTE | 2022-03-26 15:53 | IR ---
EXAMINATION TYPE: IR angio abdominal w runoff DATE OF EXAM: 03/26/2022 COMPARISON: NONE HISTORY: Fluoroscopy time. Fluoroscopy was provided to the referring clinician.
[2022-03-26 16:37] LABS: Glucose,Whole Blood 90 mg/dL (75-99)
[2022-03-26 20:15] LABS: Glucose,Whole Blood 142 mg/dL (75-99)
[2022-03-26] MEDS: MULTIVITAMINS, THERA 1 EACH TAB PO SCH (20:15)
[2022-03-26] MEDS: ACETAMINOPHEN TAB 325 MG TAB PO PRN (20:15)
[2022-03-26] MEDS: INSULIN NPH 300 UNIT/3 ML VIAL SQ SCH (20:16)
[2022-03-26] MEDS ORDERED: ATORVASTATIN 40 MG TAB PO SCH (21:00)
[2022-03-26] MEDS ORDERED: PRAMIPEXOLE 0.125 MG TAB PO SCH (21:00)
[2022-03-26] MEDS ORDERED: BACLOFEN 10 MG TAB PO SCH (21:00)
--- NOTE | 2022-03-26 21:29 | P.PCN ---
Date of Procedure: 03/26/22 Operative Findings: Percutaneous peripheral arterial angiogram Performing physician Tao Luo M.D. Procedure performed #1 selective bilateral common and external iliac angiogram #2 gradient measurement across the right and left external iliac arteries #3 selective left common femoral artery angiogram Indication This is a 71-year-old female patient who was diagnosis into severe symptomatic aortic stenosis. She underwent CTA of the aorta and iliacs and that revealed severe disease involving the right and left external iliac arteries. The arteries were extremely calcified as well. She was brought today for PTCA before the percutaneous aortic valve replacement Approach Left common femoral artery Complications None Level of sedation Moderate was sedation length of 30 minutes Procedure description After obtaining an informed consent the patient was brought to the cardiac catheter lab. The left common femoral artery was cannulated using micropuncture technique, the micropuncture wire passed easily then I placed a 6 Syriac sheath 55 cm at the left common femoral artery. Subsequently I did select the right common iliac artery using 035 stiff Glidewire with the backup support of 5 fracture and catheter. Subsequently the sheath was advanced over the wire and the catheter to the proximal right common iliac artery. Subsequently a did selective right common iliac artery and right external iliac artery angiogram and then a gradient measurement across the right external iliac artery. After that the sheath was pulled to the left side were elevated selective left common and left external iliac artery and then a gradient measurement across the left external iliac artery After the activated exchange myeloma sheath into short sheath using 035 stiff Glidewire before I did selective left common femoral artery angiogram The procedure was completed without any complication Selective bilateral iliac angiogram The right common iliac artery appeared to be angiographically normal. The left common iliac artery appears to be angiographically normal The right external iliac artery appears to half mild disease only with no gradient across the diseased area. The left external iliac artery appears to half sdec-ba-mgdonjia disease was calcified area with very mild gradient about 3-5 mm across the lesion. Conclusion #1 calcified right and left aortoiliac stent #2 mild disease involving the right external iliac artery #3 mild to moderate disease involving the left external iliac artery
[2022-03-27] MEDS: ACETAMINOPHEN TAB 325 MG TAB PO PRN (01:18)
[2022-03-27 06:04] LABS: Glucose,Whole Blood 141 mg/dL (75-99)
[2022-03-27 07:19] LABS: Basophils # (A) 0.1 k/uL (0-0.2); Basophils % (A) 1 %; Eosinophils # (A) 0.1 k/uL (0-0.7); Eosinophils % (A) 1 %; HCT 45.2 % (34.0-46.0); HGB 14.6 gm/dL (11.4-16.0); Lymphocytes # (A) 1.9 k/uL (1.0-4.8); Lymphocytes % (A) 21 %; MCH 33.2 pg (25.0-35.0); MCHC 32.3 g/dL (31.0-37.0); Macrocytosis Slight; Mean Platelet Volume 8.1; Monocytes # (A) 0.5 k/uL (0-1.0); Monocytes % (A) 6 %; Neutrophils # (A) 6.4 k/uL (1.3-7.7); Neutrophils % (A) 71 %; Platelet Count 219 k/uL (150-450); RBC 4.39 m/uL (3.80-5.40); RDW 12.6 % (11.5-15.5); WBC 9.1 k/uL (3.8-10.6)
[2022-03-27 07:30] LABS: African American GFR (CKD) >90 (>60 ml/min/1.73 sqM); Anion Gap 5 mmol/L; Blood Urea Nitrogen 14 mg/dL (7-17); Calcium 8.8 mg/dL (8.4-10.2); Carbon Dioxide 27 mmol/L (22-30); Chloride 106 mmol/L (98-107); Glucose 135 mg/dL (74-99); Non-African American GFR(CKD) >90 (>60 ml/min/1.73 sqM); Potassium 4.2 mmol/L (3.5-5.1); Sodium 138 mmol/L (137-145)
[2022-03-27] MEDS ORDERED: PANTOPRAZOLE 40 MG TABLET PO SCH (07:30)
[2022-03-27 07:47] LABS: Glucose,Whole Blood 130 mg/dL (75-99)
[2022-03-27] MEDS ORDERED: APIXABAN 5 MG TAB PO SCH (08:00)
[2022-03-27] MEDS: MULTIVITAMINS, THERA 1 EACH TAB PO SCH (08:04)
[2022-03-27] MEDS: INSULIN NPH 300 UNIT/3 ML VIAL SQ SCH (08:05)
--- NOTE | 2022-03-27 08:32 | P.DS ---
Providers Attending physician: Tao Luo Primary care physician: [facility] Course: The patient is a 71-year-old female patient who was admitted to the hospital yesterday for right iliac stenting. She underwent an angiogram which showed that the disease was not severe enough by gradient as well as angiographically. She was seen this morning. She is experiencing left groin discomfort but she is very sensitive. I'm going to obtain a Doppler to rule out pseudoaneurysm. In case the Doppler is normal the patient can be discharged home. She is scheduled to undergo transcutaneous aortic valve replacement next week Plan - Discharge Summary Discharge Rx Participant: Yes New Discharge Prescriptions: Continue Multivit-Min/Iron/Folic/Lutein [Centrum Silver Women Tablet] 1 tab PO BID Omeprazole [PriLOSEC] 20 mg PO DAILY Insulin NPH Human Isophane [NovoLIN N] 30 units SQ BID Pramipexole Di-HCl [Mirapex] 0.125 mg PO HS Nitroglycerin Sl Tabs [Nitrostat] 0.4 mg SUBLINGUAL Q5M PRN PRN Reason: Chest Pain INSULIN ASPART (NovoLOG) [NovoLOG (formulary)] See Protocol SQ ACHS Fluticasone Nasal [place] [Flonase Nasal [place]] 2 spray EA NOSTRIL DAILY PRN PRN Reason: allergies Baclofen 10 mg PO HS Varenicline [Chantix Continuing Pack] 1 mg PO DAILY Albuterol Inhaler [Ventolin Hfa Inhaler] 2 puff INHALATION RT-QID PRN PRN Reason: Shortness Of Breath Sertraline [Zoloft] 50 mg PO DAILY Apixaban [Eliquis] 5 mg PO BID #60 tab Atorvastatin [Lipitor] 40 mg PO HS #30 tablet Acetaminophen Tab [Tylenol] 650 mg PO Q6HR PRN tab PRN Reason: Fever and/ or Mild Pain amLODIPine [Norvasc] 10 mg PO DAILY Discontinued metFORMIN HCL [Glucophage] 1,000 mg PO BID Discharge Medication List Albuterol Inhaler [Ventolin Hfa Inhaler] 2 puff INHALATION RT-QID PRN 10/17/21 [History] Multivit-Min/Iron/Folic/Lutein [Centrum Silver Women Tablet] 1 tab PO BID 10/17/21 [History] Sertraline [Zoloft] 50 mg PO DAILY 10/18/21 [History] Apixaban [Eliquis] 5 mg PO BID #60 tab 10/21/21 [Rx] Atorvastatin [Lipitor] 40 mg PO HS #30 tablet 10/21/21 [Rx] Insulin NPH Human Isophane [NovoLIN N] 30 units SQ BID 01/16/22 [History] Omeprazole [PriLOSEC] 20 mg PO DAILY 01/16/22 [History] Pramipexole Di-HCl [Mirapex] 0.125 mg PO HS 01/17/22 [History] Acetaminophen Tab [Tylenol] 650 mg PO Q6HR PRN tab 01/21/22 [Rx] Baclofen 10 mg PO HS 02/06/22 [History] Fluticasone Nasal [place] [Flonase Nasal [place]] 2 spray EA NOSTRIL DAILY PRN 02/06/22 [History] INSULIN ASPART (NovoLOG) [NovoLOG (formulary)] See Protocol SQ ACHS 02/06/22 [History] Nitroglycerin Sl Tabs [Nitrostat] 0.4 mg SUBLINGUAL Q5M PRN 02/06/22 [History] Varenicline [Chantix Continuing Pack] 1 mg PO DAILY 02/06/22 [History] amLODIPine [Norvasc] 10 mg PO DAILY 02/06/22 [History]
[2022-03-27] MEDS ORDERED: VARENICLINE 1 MG TAB PO SCH (09:00)
[2022-03-27] MEDS ORDERED: SERTRALINE 50 MG TAB PO SCH (09:00)
[2022-03-27] MEDS ORDERED: amLODIPine 10 MG TAB PO SCH (09:00)
--- NOTE | 2022-03-27 09:56 | US ---
EXAMINATION TYPE: US lower ext pseudo artery LT DATE OF EXAM: 03/27/2022 COMPARISON: NONE CLINICAL HISTORY: ? pseudoaneurysm post procedure. pain left groin post procedure 03/26/22 EXAM PERFORMED: Grayscale and color Doppler duplex imaging performed of the groin, post cardiac melo ter to assess for pseudoaneurysm. SIDE PERFORMED: left Color and Waveform Doppler performed to assess for the presence of pseudoaneurysm; Is there ultrasound evidence of a pseudoaneurysm: no Is there evidence of AV shunting: no Is there a fluid collection present: no * Slightly suboptimal due to overlying subcutaneous edema. No suspicious focal vascular outpouching or pseudoaneurysm. No suspicious focal fluid collection or hematoma. IMPRESSION: As above.
[2022-03-27 11:36] LABS: Glucose,Whole Blood 160 mg/dL (75-99)
[2022-03-27 12:23] VITALS: BP 100/63; PULSE 76; RESP 16; TEMP 97.6
== END 2022-03-27 14:52 | disposition home or self-care (01) ==
LOC: CATHCVL 10:37 → 3SCARD 14:44 → CATHCVL 03-27 14:52
PROVIDERS: ATTEND Internal Medicine Interventional Cardiology
DX: I35.0 Nonrheumatic aortic (valve) stenosis (principal); G89.18 Other acute postprocedural pain; Z79.01 Long term (current) use of anticoagulants; Z95.2 Presence of prosthetic heart valve; Z20.822 Contact with and (suspected) exposure to COVID-19; Z79.899 Other long term (current) drug therapy
CPT/HCPCS: 36246; 75716; 86900; 86901; 80048; 84484; 85025; 86850; 87635; 93975; 93926; C1894 ×3; C1769 ×5; C1760; J2250; J2001; J1644; J1170; Q9966

== ENCOUNTER → 2022-04-01 | Outpatient (CLI) | payer MEDICARE ==
[2022-04-01 14:23] LABS: HCT 41.9 % (37.2-46.3); HGB 13.7 g/dL (12.0-15.0); MCH 33.2 pg (27.0-32.0); MCHC 32.7 g/dL (32.0-37.0); MCV 101.5 fL (80.0-97.0); Mean Platelet Volume 10.6 fL (9.5-12.2); NRBC Per 100 WBC 0 /100 WBCS (0.0-0.0); Platelet Count 243 X 10*3/uL (140-440); RBC 4.13 X 10*6/uL (4.10-5.20); WBC 8.15 X 10*3/uL (4.50-10.00)
[2022-04-01 14:56] LABS: African American GFR (CKD) 102.5 (60.0-200.0); Albumin/Globulin Ratio 1.29 (1.60-3.17); BUN/Creat Ratio 24.57 Ratio (12.00-20.00); Blood Urea Nitrogen 17.2 mg/dL (9.0-27.0); Calcium 9.1 mg/dL (8.7-10.3); Globulin 3.1 g/dL (1.6-3.3); Non-African American GFR(CKD) 88.4 (60.0-200.0); Potassium 4.1 mmol/L (3.5-5.5); Total Bilirubin 0.7 mg/dL (0.30-1.20); Total Protein 7.1 g/dL (6.2-8.2)
== END | disposition home or self-care (01) ==
LOC: LABWHC1 09:18
PROVIDERS: ATTEND Thoracic Surgery (Cardiothoracic Vascular Surgery)
DX: I35.0 Nonrheumatic aortic (valve) stenosis (principal)
CPT/HCPCS: 80053; 85027

== ENCOUNTER 2022-04-07 15:35 | Emergency (ER) | payer MEDICARE ==
[2022-04-07 16:54] LABS: Basophils # (A) 0.1 k/uL (0-0.2); Basophils % (A) 1 %; Eosinophils # (A) 0.2 k/uL (0-0.7); Eosinophils % (A) 2 %; HCT 34.3 % (34.0-46.0); HGB 11.4 gm/dL (11.4-16.0); Lymphocytes # (A) 1.8 k/uL (1.0-4.8); Lymphocytes % (A) 18 %; MCH 33.7 pg (25.0-35.0); MCHC 33.2 g/dL (31.0-37.0); MCV 101.7 fL (80.0-100.0); Macrocytosis Slight; Mean Platelet Volume 7.5; Monocytes # (A) 0.6 k/uL (0-1.0); Monocytes % (A) 6 %; Neutrophils # (A) 6.9 k/uL (1.3-7.7); Neutrophils % (A) 71 %; Platelet Count 269 k/uL (150-450); RBC 3.38 m/uL (3.80-5.40); RDW 13.9 % (11.5-15.5); WBC 9.7 k/uL (3.8-10.6)
[2022-04-07 17:00] LABS: INR 0.9 (<1.2); Partial Thromboplastin Time 24.9 sec (22.0-30.0); Prothrombin Time 10.1 sec (9.0-12.0)
[2022-04-07 17:02] LABS: ALT 177 U/L (4-34); AST 175 U/L (14-36); African American GFR (CKD) >90 (>60 ml/min/1.73 sqM); Albumin 3.9 g/dL (3.5-5.0); Alkaline Phosphatase 251 U/L (38-126); Anion Gap 8 mmol/L; Blood Urea Nitrogen 21 mg/dL (7-17); Calcium 8.8 mg/dL (8.4-10.2); Carbon Dioxide 22 mmol/L (22-30); Chloride 106 mmol/L (98-107); Glucose 125 mg/dL (74-99); Non-African American GFR(CKD) 88 (>60 ml/min/1.73 sqM); Potassium 3.9 mmol/L (3.5-5.1); Sodium 136 mmol/L (137-145); Total Bilirubin 2.6 mg/dL (0.2-1.3); Total Protein 6.8 g/dL (6.3-8.2)
--- NOTE | 2022-04-07 17:37 | US ---
EXAMINATION TYPE: US lower ext pseudo artery LT DATE OF EXAM: 04/07/2022 COMPARISON: NONE CLINICAL HISTORY: recent aortic valve repair. EXAM PERFORMED: Grayscale and color Doppler duplex imaging performed of the groin, post cardiac melo ter to assess for pseudoaneurysm. SIDE PERFORMED: left Color and Waveform Doppler performed to assess for the presence of pseudoaneurysm; Is there ultrasound evidence of a pseudoaneurysm: no Is there evidence of AV shunting: no 3 to 4 hematomas extending all the way to the patients hip. Difficult to distinguish whether these ar e separate due to severe swelling. 1.) 3.4 x x 1.3 x 2.9cm 2.) 4.7 x 1.7 x 4.2cm 3.) 3.4 x 1.7 x 3.8cm 4.) 7.0 x 2.9 x 5.9cm IMPRESSION: Multiple fluid collections are demonstrated that are consistent with hematomas. No evidence of blood flow to suggest a pseudoaneurysm.
--- NOTE | 2022-04-07 18:15 | ED ---
General Adult HPI - General Chief complaint: Recheck/Abnormal Lab/Rx Stated complaint: nausea, dizzy Time Seen by Provider: 04/07/22 16:18 Source: patient Mode of arrival: wheelchair - History of Present Illness Initial comments: 71-year-old female past medical history of CVA, diabetes, aortic stenosis, cervical and colon cancer presents to the emergency department with left groin pain. She recently had stenting of her right leg followed by an aortic valve repair for which they accessed her left groin. She reports that since the surgery she has had increasing swelling to the left groin. It excessive extremely painful. She is on Eliquis. His medication was stopped for her procedure which happened on April 02. He states that she just restarted her anticoagulation on the . She was seen in the cardiology office this morning and referred over to the hospital for ultrasound. Does admit to dizziness. States she's been using her shower chair shower due to weakness. She called and made an appointment. Saw Dr. Osorio in office who sent her over for further imaging. No other alleviating, precipitating or modifying factors - Related Data Home Medications Medication Instructions Recorded Confirmed Albuterol Inhaler [Ventolin Hfa 2 puff INHALATION RT-QID PRN 10/17/21 04/02/22 Inhaler] Multivit-Min/Iron/Folic/Lutein 1 tab PO BID 10/17/21 04/02/22 [Centrum Silver Women Tablet] Sertraline [Zoloft] 50 mg PO DAILY 10/18/21 04/02/22 Insulin NPH Human Isophane 30 units SQ QAM 01/16/22 04/02/22 [NovoLIN N] Omeprazole [PriLOSEC] 20 mg PO DAILY 01/16/22 04/02/22 Pramipexole Di-HCl [Mirapex] 0.125 mg PO HS 01/17/22 04/02/22 Baclofen 10 mg PO HS 02/06/22 04/02/22 Fluticasone Nasal [place] [Flonase 2 spray EA NOSTRIL DAILY PRN 02/06/22 04/02/22 Nasal [place]] INSULIN ASPART (NovoLOG) [NovoLOG See Protocol SQ ACHS 02/06/22 04/02/22 (formulary)] Nitroglycerin Sl Tabs [Nitrostat] 0.4 mg SUBLINGUAL Q5M PRN 02/06/22 03/31/22 Varenicline [Chantix Continuing 1 mg PO DAILY 02/06/22 04/02/22 Pack] amLODIPine [Norvasc] 10 mg PO DAILY 02/06/22 04/02/22 Insulin NPH Human Isophane 35 units SQ HS 03/31/22 04/02/22 [NovoLIN N] Previous Rx's Medication Instructions Recorded Apixaban [Eliquis] 5 mg PO BID #60 tab 10/21/21 Atorvastatin [Lipitor] 40 mg PO HS #30 tablet 10/21/21 Acetaminophen Tab [Tylenol] 650 mg PO Q6HR PRN tab 01/21/22 Clopidogrel [Plavix] 75 mg PO DAILY #30 tab 04/03/22 metFORMIN HCL [Glucophage] 1,000 mg PO BID #0 04/03/22 HYDROcodone/APAP 7.5-325MG [[place] 1 tab PO Q4HR PRN #18 tab 04/07/22 7.5-325] Allergies Allergy/AdvReac Type Severity Reaction Status Date / Time bee venom protein (honey bee) Allergy Anaphylaxis Verified 04/02/22 06:47 cephalexin [From Keflex] Allergy Rash/Hives Verified 04/02/22 06:47 codeine Allergy rash, Verified 04/02/22 06:47 swelling latex Allergy Rash/Hives Verified 04/02/22 06:47 Penicillins Allergy Swelling Verified 04/02/22 06:47 Sulfa (Sulfonamide Allergy Unknown Verified 04/02/22 06:47 Antibiotics) Review of Systems ROS Statement: Those systems with pertinent positive or pertinent negative responses have been documented in the HPI. ROS Other: All systems not noted in ROS Statement are negative. Past Medical History Past Medical History: Cancer, CVA/TIA, Diabetes Mellitus, GERD/Reflux, Hyperlipidemia, Hypertension, Osteoarthritis (OA), Sleep Apnea/CPAP/BIPAP Additional Past Medical History / Comment(s): states 7 strokes, states left foot drop, and wears an AFO, hx of cervical CA, and colon CA 2002, had chemo and radiation, restless leg, neuropathy tr legs, states has had weight loss, at one time weighed 545lbs, uses CPAP History of Any Multi-Drug Resistant Organisms: None Reported Past Surgical History: Bowel Resection, Heart Catheterization, Heart Catheterization With Stent, Hernia Repair, Hysterectomy, Joint Replacement, Pacemaker Additional Past Surgical History / Comment(s): hx of colostomy, and then reversal, tr cataract sx, left hip replaced, states had 5 hernia repairs with m esh, loop recorder, recent heart cath., panniculectomy, recent aortogram, aorta valve replacemnet 04/02/22 Past Anesthesia/Blood Transfusion Reactions: No Reported Reaction Date of Last Stent Placement:: 2013 Type of Cardiac Device: Loop Device Placement Date:: 12/23/20 Past Psychological History: Depression Smoking Status: Former smoker Past Alcohol Use History: None Reported - Past Family History Brother(s) Family Medical History: Cancer Sister(s) History Unknown: Yes Daughter(s) History Unknown: Yes Son(s) Family Medical History: No Reported History Father Family Medical History: Cancer, Coronary Artery Disease (CAD), Diabetes Mellitus Mother Family Medical History: Coronary Artery Disease (CAD), CVA/TIA, Diabetes Mellitus Course Vital Signs 04/07/22 04/07/22 04/07/22 15:49 18:30 19:05 Temperature 98.1 F 98.0 F 98.0 F Pulse Rate 83 79 75 Respiratory 18 20 20 Rate Blood Pressure 130/63 132/77 136/70 O2 Sat by Pulse 98 98 97 Oximetry Medical Decision Making - Medical Decision Making Upon arrival patient was placed into room 22. Laboratory studies are obtained. Hemoglobin 11.4. Last draw was completed on the and her hemoglobin was 12. Ultrasound demonstrates multiple hematomas with swelling. No signs of pseudoaneurysm. Results were discussed with Dr. Caballero. Recommended pain control and cold compresses. Will follow up with TAVR clinic - patient should receive a call from [facility]. Instructed to stop her [place] until Thursday. Return for any new or worsening symptoms per patient grid treatment plan was discharged home in stable condition - Lab Data Result diagrams: 04/07/22 16:43 04/07/22 16:43 Lab Results 04/07/22 04/07/22 04/07/22 Range/Units 16:43 16:43 16:43 WBC 9.7 (3.8-10.6) k/uL RBC 3.38 L (3.80-5.40) m/uL Hgb 11.4 (11.4-16.0) gm/dL Hct 34.3 (34.0-46.0) % MCV 101.7 H (80.0-100.0) fL MCH 33.7 (25.0-35.0) pg MCHC 33.2 (31.0-37.0) g/dL RDW 13.9 (11.5-15.5) % Plt Count 269 (150-450) k/uL MPV 7.5 Neutrophils % 71 % Lymphocytes % 18 % Monocytes % 6 % Eosinophils % 2 % Basophils % 1 % Neutrophils # 6.9 (1.3-7.7) k/uL Lymphocytes # 1.8 (1.0-4.8) k/uL Monocytes # 0.6 (0-1.0) k/uL Eosinophils # 0.2 (0-0.7) k/uL Basophils # 0.1 (0-0.2) k/uL Macrocytosis Slight PT 10.1 (9.0-12.0) sec INR 0.9 (<1.2) APTT 24.9 (22.0-30.0) sec Sodium 136 L (137-145) mmol/L Potassium 3.9 (3.5-5.1) mmol/L Chloride 106 (98-107) mmol/L Carbon Dioxide 22 (22-30) mmol/L Anion Gap 8 mmol/L BUN 21 H (7-17) mg/dL Creatinine 0.71 (0.52-1.04) mg/dL Est GFR (CKD-EPI)AfAm >90 (>60 ml/min/1.73 sqM) Est GFR (CKD-EPI)NonAf 88 (>60 ml/min/1.73 sqM) Glucose 125 H (74-99) mg/dL Calcium 8.8 (8.4-10.2) mg/dL Total Bilirubin 2.6 H (0.2-1.3) mg/dL AST 175 H (14-36) U/L ALT 177 H (4-34) U/L Alkaline Phosphatase 251 H (38-126) U/L Total Protein 6.8 (6.3-8.2) g/dL Albumin 3.9 (3.5-5.0) g/dL Disposition Clinical Impression: Groin hematoma, S/P aortic valve replacement Disposition: HOME SELF-CARE Condition: Stable Instructions (If sedation given, give patient instructions): Hematoma (ED) Additional Instructions: Please rest at home. Do not take your Eliquis again until Thursday. You should be receiving a call from cardiothoracic surgery for a follow-up appointment. Return to the emergency room for any new or worsening symptoms Prescriptions: HYDROcodone/APAP 7.5-325MG [[place] 7.5-325] 1 tab PO Q4HR PRN #18 tab PRN Reason: Pain Is patient prescribed a controlled substance at d/c from ED?: Yes When asked, does pt state using other controlled substances?: No If prescribed controlled substance>3 days was MAPS reviewed?: Prescribed <3 Days Referrals: Zhang Holguin MD [Primary Care Provider] - 1-2 days Bakari Saini MD [STAFF PHYSICIAN] - 1-2 days Time of Disposition: 18:42
[2022-04-07] MEDS ORDERED: HYDROcodone/APAP 7.5-325MG 1 EACH TAB PO ONE (18:38)
[2022-04-07 19:04] VITALS: RESP 20; TEMP 98
[2022-04-07 19:06] VITALS: BP 136/70; PULSE 75
== END 2022-04-07 19:05 | disposition home or self-care (01) ==
LOC: EC 15:35
DX: S30.1XXA Contusion of abdominal wall, initial encounter (principal); E11.40 Type 2 diabetes mellitus with diabetic neuropathy, unspecified; I10 Essential (primary) hypertension; E78.5 Hyperlipidemia, unspecified; M19.90 Unspecified osteoarthritis, unspecified site; F32.A Depression, unspecified; Z87.891 Personal history of nicotine dependence; Z79.4 Long term (current) use of insulin; Z79.84 Long term (current) use of oral hypoglycemic drugs; Z79.51 Long term (current) use of inhaled steroids; Z79.01 Long term (current) use of anticoagulants; Z79.02 Long term (current) use of antithrombotics/antiplatelets; Z79.899 Other long term (current) drug therapy; X58.XXXA Exposure to other specified factors, initial encounter
CPT/HCPCS: 36415; 80053; 85025; 85610; 85730; 93975; 99284

== ENCOUNTER → 2022-04-23 | Outpatient (CLI) | payer MEDICARE ==
[2022-04-23 22:28] LABS: Eosinophils # (A) 0.14 X 10*3/uL (0.04-0.35); Eosinophils % (A) 1.3 %; HCT 40.1 % (37.2-46.3); HGB 12.6 g/dL (12.0-15.0); Immature Grans, Automated 0.3 %; Lymphocytes # (A) 2.71 X 10*3/uL (0.90-5.00); MCH 32.8 pg (27.0-32.0); MCHC 31.4 g/dL (32.0-37.0); MCV 104.4 fL (80.0-97.0); Monocytes % (A) 6.7 %; NRBC Per 100 WBC 0 /100 WBCS (0.0-0.0); Neutrophils # (A) 6.76 X 10*3/uL (1.80-7.70); Neutrophils % (A) 64.7 %; Platelet Count 286 X 10*3/uL (140-440); RBC 3.84 X 10*6/uL (4.10-5.20); RDW 14.2 % (11.5-14.5); WBC 10.44 X 10*3/uL (4.50-10.00)
[2022-04-23 22:47] LABS: African American GFR (CKD) 93.8 (60.0-200.0); Albumin 4.1 g/dL (3.8-4.9); Albumin/Globulin Ratio 1.55 (1.60-3.17); Anion Gap 14.6 mmol/L (10.00-18.00); BUN/Creat Ratio 31.61 Ratio (12.00-20.00); Blood Urea Nitrogen 23.8 mg/dL (9.0-27.0); Calcium 9.2 mg/dL (8.7-10.3); Carbon Dioxide 23.1 mmol/L (20.0-27.5); Globulin 2.7 g/dL (1.6-3.3); Non-African American GFR(CKD) 80.9 (60.0-200.0); Potassium 4.5 mmol/L (3.5-5.5); Total Bilirubin 0.6 mg/dL (0.30-1.20); Total Protein 6.8 g/dL (6.2-8.2)
== END | disposition home or self-care (01) ==
LOC: LABWHC1 13:22
PROVIDERS: ATTEND Nurse Practitioner Acute Care
DX: I47.1 Supraventricular tachycardia (principal)
CPT/HCPCS: 36415; 80053; 85025

== ENCOUNTER 2022-06-10 08:36 | Emergency (ER) | payer MEDICARE ==
[2022-06-10 08:48] VITALS: RESP 18
[2022-06-10] MEDS ORDERED: ASPIRIN 81 MG PO STA (09:28)
[2022-06-10] MEDS ORDERED: HYDROcodone/APAP 5-325MG 1 EACH TAB PO STA (09:55)
--- NOTE | 2022-06-10 10:04 | ED ---
Fall HPI - General Chief Complaint: Fall Stated Complaint: fall Time Seen by Provider: 06/10/22 09:17 Source: patient, RN notes reviewed Mode of arrival: ambulatory - History of Present Illness Initial Comments: This is a 72-year-old female who presents to the emergency department for lower back pain after a fall and chest pressure. 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 Denies hitting her head or any loss of consciousness. She has since started to develop numbness in the left lower extremity, which concerns her as she had a left hip replacement a few years ago. She broke her tailbone approximately 20 years ago, and states that this feels the same in the lower back. Additionally, she has started to develop chest pressure this morning and had associated dizziness and visual changes. These symptoms have since subsided. Denies any shortness of breath. She had a TAVR almost 2 months ago at this facility. She was originally going to cardio rehab this morning, however given the pain from the fall and the associated chest pressure, she was instructed to come to the emergency department. Denies any fevers, chills, sore throat, cough, dyspnea, palpitations, abdominal pain, nausea, vomiting, diarrhea, or headaches. MD Complaint: fall, other (chest pain) Onset/Timin -: days(s) Fall From: standing When Fall Occurred: # days STEELER (2) Fall Witnessed: yes, by bystander Place Fall Occurred: other (congregation) Loss of Consciousness: none Prolonged Down Time?: no Symptoms Prior to Fall: none Location: back Location - Extremities: Left: Arm, Right: Arm Context: tripped/slipped - Related Data Home Medications Medication Instructions Recorded Confirmed Albuterol Inhaler [Ventolin Hfa 2 puff INHALATION RT-QID PRN 10/17/21 04/02/22 Inhaler] Multivit-Min/Iron/Folic/Lutein 1 tab PO BID 10/17/21 04/02/22 [Centrum Silver Women Tablet] Sertraline [Zoloft] 50 mg PO DAILY 10/18/21 04/02/22 Insulin NPH Human Isophane 30 units SQ QAM 01/16/22 04/02/22 [NovoLIN N] Omeprazole [PriLOSEC] 20 mg PO DAILY 01/16/22 04/02/22 Pramipexole Di-HCl [Mirapex] 0.125 mg PO HS 01/17/22 04/02/22 Baclofen 10 mg PO HS 02/06/22 04/02/22 Fluticasone Nasal [place] [Flonase 2 spray EA NOSTRIL DAILY PRN 02/06/22 04/02/22 Nasal [place]] INSULIN ASPART (NovoLOG) [NovoLOG See Protocol SQ ACHS 02/06/22 04/02/22 (formulary)] Nitroglycerin Sl Tabs [Nitrostat] 0.4 mg SUBLINGUAL Q5M PRN 02/06/22 03/31/22 Varenicline [Chantix Continuing 1 mg PO DAILY 02/06/22 04/02/22 Pack] amLODIPine [Norvasc] 10 mg PO DAILY 02/06/22 04/02/22 Insulin NPH Human Isophane 35 units SQ HS 03/31/22 04/02/22 [NovoLIN N] Previous Rx's Medication Instructions Recorded Apixaban [Eliquis] 5 mg PO BID #60 tab 10/21/21 Atorvastatin [Lipitor] 40 mg PO HS #30 tablet 10/21/21 Acetaminophen Tab [Tylenol] 650 mg PO Q6HR PRN tab 01/21/22 Clopidogrel [Plavix] 75 mg PO DAILY #30 tab 04/03/22 metFORMIN HCL [Glucophage] 1,000 mg PO BID #0 04/03/22 HYDROcodone/APAP 7.5-325MG [[place] 1 tab PO Q4HR PRN #18 tab 04/07/22 7.5-325] Allergies Allergy/AdvReac Type Severity Reaction Status Date / Time bee venom protein (honey bee) Allergy Anaphylaxis Verified 06/10/22 08:48 cephalexin [From Keflex] Allergy Rash/Hives Verified 06/10/22 08:48 codeine Allergy rash, Verified 06/10/22 08:48 swelling latex Allergy Rash/Hives Verified 06/10/22 08:48 Penicillins Allergy Swelling Verified 06/10/22 08:48 Sulfa (Sulfonamide Allergy Unknown Verified 06/10/22 08:48 Antibiotics) Review of Systems ROS Statement: Those systems with pertinent positive or pertinent negative responses have been documented in the HPI. ROS Other: All systems not noted in ROS Statement are negative. Past Medical History Past Medical History: Cancer, CVA/TIA, Diabetes Mellitus, GERD/Reflux, Hyperlipidemia, Hypertension, Osteoarthritis (OA), Sleep Apnea/CPAP/BIPAP Additional Past Medical History / Comment(s): states 7 strokes, states left foot drop, and wears an AFO, hx of cervical CA, and colon CA 2002, had chemo and radiation, restless leg, neuropathy tr legs, states has had weight loss, at one time weighed 545lbs, uses CPAP History of Any Multi-Drug Resistant Organisms: None Reported Past Surgical History: Bowel Resection, Heart Catheterization, Heart Catheterization With Stent, Hernia Repair, Hysterectomy, Joint Replacement, Pacemaker Additional Past Surgical History / Comment(s): hx of colostomy, and then reversal, tr cataract sx, left hip replaced, states had 5 hernia repairs with mesh, loop recorder, recent heart cath., panniculectomy, recent aortogram, aorta valve replacemnet 04/02/22 Past Anesthesia/Blood Transfusion Reactions: No Reported Reaction Date of Last Stent Placement:: 2013 Type of Cardiac Device: Loop Device Placement Date:: 12/23/20 Past Psychological History: Depression Smoking Status: Former smoker Past Alcohol Use History: None Reported Past Drug Use History: None Reported - Past Family History Brother(s) Family Medical History: Cancer Sister(s) History Unknown: Yes Daughter(s) History Unknown: Yes Son(s) Family Medical History: No Reported History Father Family Medical History: Cancer, Coronary Artery Disease (CAD), Diabetes Mellitus Mother Family Medical History: Coronary Artery Disease (CAD), CVA/TIA, Diabetes Mellitus General Exam Limitations: no limitations General appearance: alert, in distress Head exam: Present: atraumatic, normocephalic, normal inspection Respiratory exam: Present: normal lung sounds bilaterally. Absent: respiratory distress, wheezes, rales, rhonchi, stridor Cardiovascular Exam: Present: regular rate, normal rhythm, normal heart sounds. Absent: systolic murmur, diastolic murmur, rubs, gallop, clicks GI/Abdominal exam: Present: soft, normal bowel sounds. Absent: distended, tenderness, guarding, rebound, rigid Neurological exam: Present: alert, oriented X3, CN II-XII intact Psychiatric exam: Present: normal affect, normal mood Skin exam: Present: warm, dry, abrasion (Ventral aspect of the bilateral upper extremities) Course Vital Signs 06/10/22 06/10/22 06/10/22 08:44 09:46 11:49 Temperature 97.7 F Pulse Rate 76 73 56 L Respiratory 18 18 18 Rate Blood Pressure 124/75 181/81 145/64 O2 Sat by Pulse 98 97 100 Oximetry 06/10/22 14:06 Temperature 98.1 F Pulse Rate 66 Respiratory 18 Rate Blood Pressure 151/89 O2 Sat by Pulse 66 L Oximetry Medical Decision Making - Medical Decision Making This is a 72-year-old female who presents to the emergency department for lower back pain and left lower extremity paresthesias from a fall as well as chest pressure. X-rays of her injuries and chest were obtained, all of which revealed no acute abnormalities. Lab work was nonactionable including a negative troponin 2. Aspirin and [place] administered for symptoms. Patient states that chest pressure has significantly improved. We discussed having her stay for observation in light of her symptoms versus discharge home with strict return precautions. Patient requests discharge home with strict return precautions. She will follow up with cardiology and alert them of her recent bout of chest pain. She will take Tylenol at home as needed for her pain. Return precautions reviewed in depth, the patient is instructed to return to the emergency department with any new, worsening, or concerning symptoms. Patient verbalized understanding. This case was discussed in detail with the attending ED physician. Presentation, findings, and treatment plan discussed in detail as well. - Lab Data Result diagrams: 06/10/22 09:48 06/10/22 09:48 Lab Results 06/10/22 06/10/22 06/10/22 Range/Units 09:48 09:48 09:48 WBC 10.3 (3.8-10.6) k/uL RBC 4.21 (3.80-5.40) m/uL Hgb 13.8 (11.4-16.0) gm/dL Hct 43.3 (34.0-46.0) % MCV 102.7 H (80.0-100.0) fL MCH 32.9 (25.0-35.0) pg MCHC 32.0 (31.0-37.0) g/dL RDW 12.6 (11.5-15.5) % Plt Count 216 (150-450) k/uL MPV 7.9 Neutrophils % 75 % Lymphocytes % 18 % Monocytes % 5 % Eosinophils % 1 % Basophils % 1 % Neutrophils # 7.6 (1.3-7.7) k/uL Lymphocytes # 1.8 (1.0-4.8) k/uL Monocytes # 0.5 (0-1.0) k/uL Eosinophils # 0.1 (0-0.7) k/uL Basophils # 0.1 (0-0.2) k/uL Macrocytosis Slight PT 10.4 (9.0-12.0) sec INR 0.9 (<1.2) APTT 25.6 (22.0-30.0) sec Sodium 136 L (137-145) mmol/L Potassium 4.4 (3.5-5.1) mmol/L Chloride 106 (98-107) mmol/L Carbon Dioxide 25 (22-30) mmol/L Anion Gap 5 mmol/L BUN 18 H (7-17) mg/dL Creatinine 0.70 (0.52-1.04) mg/dL Est GFR (CKD-EPI)AfAm >90 (>60 ml/min/1.73 sqM) Est GFR (CKD-EPI)NonAf 88 (>60 ml/min/1.73 sqM) Glucose 196 H (74-99) mg/dL Calcium 8.9 (8.4-10.2) mg/dL Magnesium 1.6 (1.6-2.3) mg/dL Total Bilirubin 0.6 (0.2-1.3) mg/dL AST 23 (14-36) U/L ALT 19 (4-34) U/L Alkaline Phosphatase 124 (38-126) U/L Troponin I (0.000-0.034) ng/mL Total Protein 7.0 (6.3-8.2) g/dL Albumin 3.9 (3.5-5.0) g/dL Amylase 37 (30-110) U/L Lipase 50 (23-300) U/L 06/10/22 06/10/22 Range/Units 09:48 12:47 WBC (3.8-10.6) k/uL RBC (3.80-5.40) m/uL Hgb (11.4-16.0) gm/dL Hct (34.0-46.0) % MCV (80.0-100.0) fL MCH (25.0-35.0) pg MCHC (31.0-37.0) g/dL RDW (11.5-15.5) % Plt Count (150-450) k/uL MPV Neutrophils % % Lymphocytes % % Monocytes % % Eosinophils % % Basophils % % Neutrophils # (1.3-7.7) k/uL Lymphocytes # (1.0-4.8) k/uL Monocytes # (0-1.0) k/uL Eosinophils # (0-0.7) k/uL Basophils # (0-0.2) k/uL Macrocytosis PT (9.0-12.0) sec INR (<1.2) APTT (22.0-30.0) sec Sodium (137-145) mmol/L Potassium (3.5-5.1) mmol/L Chloride (98-107) mmol/L Carbon Dioxide (22-30) mmol/L Anion Gap mmol/L BUN (7-17) mg/dL Creatinine (0.52-1.04) mg/dL Est GFR (CKD-EPI)AfAm (>60 ml/min/1.73 sqM) Est GFR (CKD-EPI)NonAf (>60 ml/min/1.73 sqM) Glucose (74-99) mg/dL Calcium (8.4-10.2) mg/dL Magnesium (1.6-2.3) mg/dL Total Bilirubin (0.2-1.3) mg/dL AST (14-36) U/L ALT (4-34) U/L Alkaline Phosphatase (38-126) U/L Troponin I <0.012 <0.012 (0.000-0.034) ng/mL Total Protein (6.3-8.2) g/dL Albumin (3.5-5.0) g/dL Amylase (30-110) U/L Lipase (23-300) U/L - EKG Data EKG Comments: Sinus rhythm. Ventricular rate 62 bpm, RI interval 148 ms, QRS duration 105 ms, QTC 435 ms. - Radiology Data Radiology results: report reviewed, image reviewed Disposition Clinical Impression: Fall, Chest pain Disposition: HOME SELF-CARE Instructions (If sedation given, give patient instructions): Chest Pain (ED), Fall Prevention (ED) Additional Instructions: Return to the emergency department with any new, worsening, or concerning symptoms. Follow-up with your door glass installer regarding the episode of chest pain. Take Tylenol as needed for pain. Is patient prescribed a controlled substance at d/c from ED?: No Referrals: Zhang Holguin MD [Primary Care Provider] - 1-2 days
[2022-06-10 10:57] LABS: Basophils # (A) 0.1 k/uL (0-0.2); Basophils % (A) 1 %; Eosinophils # (A) 0.1 k/uL (0-0.7); Eosinophils % (A) 1 %; HCT 43.3 % (34.0-46.0); HGB 13.8 gm/dL (11.4-16.0); Lymphocytes # (A) 1.8 k/uL (1.0-4.8); Lymphocytes % (A) 18 %; MCH 32.9 pg (25.0-35.0); MCV 102.7 fL (80.0-100.0); Macrocytosis Slight; Mean Platelet Volume 7.9; Monocytes # (A) 0.5 k/uL (0-1.0); Monocytes % (A) 5 %; Neutrophils # (A) 7.6 k/uL (1.3-7.7); Neutrophils % (A) 75 %; Platelet Count 216 k/uL (150-450); RBC 4.21 m/uL (3.80-5.40); RDW 12.6 % (11.5-15.5); WBC 10.3 k/uL (3.8-10.6)
[2022-06-10 11:07] LABS: INR 0.9 (<1.2); Partial Thromboplastin Time 25.6 sec (22.0-30.0); Prothrombin Time 10.4 sec (9.0-12.0)
[2022-06-10 11:18] LABS: ALT 19 U/L (4-34); AST 23 U/L (14-36); African American GFR (CKD) >90 (>60 ml/min/1.73 sqM); Albumin 3.9 g/dL (3.5-5.0); Alkaline Phosphatase 124 U/L (38-126); Amylase 37 U/L (30-110); Anion Gap 5 mmol/L; Blood Urea Nitrogen 18 mg/dL (7-17); Calcium 8.9 mg/dL (8.4-10.2); Carbon Dioxide 25 mmol/L (22-30); Chloride 106 mmol/L (98-107); Glucose 196 mg/dL (74-99); Lipase 50 U/L (23-300); Magnesium 1.6 mg/dL (1.6-2.3); Non-African American GFR(CKD) 88 (>60 ml/min/1.73 sqM); Potassium 4.4 mmol/L (3.5-5.1); Sodium 136 mmol/L (137-145); Total Bilirubin 0.6 mg/dL (0.2-1.3)
--- NOTE | 2022-06-10 12:12 | XR ---
EXAMINATION TYPE: XR chest 2V DATE OF EXAM: 06/10/2022 11:52 AM COMPARISON: Chest radiographs from 04/03/2022 TECHNIQUE: XR chest 2V Frontal and lateral views of the chest. CLINICAL INDICATION:Female, 72 years old with history of Chest Pain; FINDINGS: Lungs/Pleura: There is no evidence of pleural effusion, focal consolidation, or pneumothorax. Pulmonary vascularity: Unremarkable. Heart/mediastinum: Cardiomediastinal silhouette is unremarkable. Atherosclerotic calcifications are seen in the aorta. Unchanged stent graft of the aortic root. Musculoskeletal: Multiple level degenerative disc disease changes seen throughout the spine. No acute osseous antibodies. Loop recorder overlies the left chest. IMPRESSION: Chronic changes without evidence for acute cardiopulmonary process.
--- NOTE | 2022-06-10 12:26 | XR ---
EXAMINATION TYPE: XR wrist complete RT DATE OF EXAM: 06/10/2022 11:55 AM INDICATION: Patient age:Female; 72 years old; Reason for study: Pain from fall; COMPARISON: Left forearm radiograph the same date. TECHNIQUE: 4 views of the right wrist. Frontal, navicular, lateral, and oblique. FINDINGS: No acute osseous pathology, joint dislocation, or joint effusion. No evidence of any soft tissue swelling is seen. Bony demineralization. IMPRESSION: No acute osseous pathology.
--- NOTE | 2022-06-10 12:28 | XR ---
EXAMINATION TYPE: XR forearm LT DATE OF EXAM: 06/10/2022 11:55 AM INDICATION: Patient age:Female; 72 years old; Reason for study: pain after fall; COMPARISON: Left wrist radiograph the same date. TECHNIQUE: The left forearm was examined in AP and lateral projections. FINDINGS: No acute osseous pathology, soft tissue swelling or joint dislocations are seen. IV tubing demonstrated. Bone demineralization. IMPRESSION: No evidence of acute fracture.
--- NOTE | 2022-06-10 12:30 | XR ---
EXAMINATION TYPE: XR Hip Bilateral Complete DATE OF EXAM: 06/10/2022 11:52 AM INDICATION: Patient age:Female; 72 years old; Reason for study: pain after fall; COMPARISON: None. TECHNIQUE: Both hips were examined in the frontal and lateral projections and a AP pelvis. FINDINGS: No evidence of any acute osseous pathology, joint dislocation, or soft tissue swelling. Pos tsurgical changes from left total hip arthroplasty. Hardware appears intact with appropriate alignmen t. Moderate osteoarthritic changes of the right hip with joint space narrowing, sclerosis, and osteop hyte formation. IMPRESSION: No acute osseous pathology. Moderate osteoarthritic changes the right hip. Postsurgical changes from left total hip arthroplasty.
--- NOTE | 2022-06-10 12:32 | XR ---
EXAMINATION TYPE: XR lumbosacral spine min 4V DATE OF EXAM: 06/10/2022 11:52 AM INDICATION: Patient age:Female; 72 years old; Reason for study: pain after fall; COMPARISON: Hip radiographs from the same day. TECHNIQUE: Frontal, lateral , bilateral oblique and coned in L5-S1 lateral views of the spine. FINDINGS: No evidence of any acute osseous pathology. No evidence of loss of vertebral body height i s seen. There is normal alignment of the lumbar vertebral bodies. There are 5 nonrib-bearing lumbar t ype vertebral bodies identified. Multilevel facet arthropathy demonstrated. Vascular sclerosis. Bone demineralization. Partial visualization of postsurgical changes of the left hip and osteolytic change s of the right hip. Additional postsurgical changes with hernia mesh anchors identified. IMPRESSION: No acute process.
[2022-06-10 14:07] VITALS: BP 151/89; PULSE 66; TEMP 98.1
== END 2022-06-10 14:07 | disposition home or self-care (01) ==
LOC: EC 08:36
DX: R07.9 Chest pain, unspecified (principal); Z86.73 Personal history of transient ischemic attack (TIA), and cerebral infarction without residual deficits; E11.9 Type 2 diabetes mellitus without complications; K21.9 Gastro-esophageal reflux disease without esophagitis; E78.5 Hyperlipidemia, unspecified; I10 Essential (primary) hypertension; M19.90 Unspecified osteoarthritis, unspecified site; F32.A Depression, unspecified; Z87.891 Personal history of nicotine dependence; Z88.0 Allergy status to penicillin; Z88.2 Allergy status to sulfonamides; Z91.040 Latex allergy status; Z88.5 Allergy status to narcotic agent; Z88.1 Allergy status to other antibiotic agents; Z91.030 Bee allergy status; Z79.899 Other long term (current) drug therapy; W10.8XXA Fall (on) (from) other stairs and steps, initial encounter; Y92.89 Other specified places as the place of occurrence of the external cause; Y93.89 Activity, other specified
CPT/HCPCS: 36415; 71046; 72110; 73521; 80053; 82150; 83690; 83735; 84484; 85025; 85610; 85730; 93005; 99284

== ENCOUNTER 2022-07-09 12:09 | Inpatient (IN) | payer MEDICARE ==
--- NOTE | 2022-07-09 12:32 | ED ---
General Adult HPI - General Chief complaint: Neuro Symptoms/Deficit Stated complaint: right side weakness Time Seen by Provider: 07/09/22 12:23 Source: patient, RN notes reviewed, old records reviewed Mode of arrival: wheelchair Limitations: no limitations - History of Present Illness Initial comments: 72-year-old female history of TIA CVA presenting with acute onset gait instability, double vision and right-sided numbness or weakness. Patient states at 10:30 this morning her symptoms developed suddenly. She does report a headache. She is on Plavix and Eliquis. Patient had placed a patch over her right eye secondary to profound double vision. Denies chest pain. No fever. No preceding symptoms. - Related Data Home Medications Medication Instructions Recorded Confirmed Albuterol Inhaler [Ventolin Hfa 2 puff INHALATION RT-QID PRN 10/17/21 04/02/22 Inhaler] Multivit-Min/Iron/Folic/Lutein 1 tab PO BID 10/17/21 04/02/22 [Centrum Silver Women Tablet] Sertraline [Zoloft] 50 mg PO DAILY 10/18/21 04/02/22 Insulin NPH Human Isophane 30 units SQ QAM 01/16/22 04/02/22 [NovoLIN N] Omeprazole [PriLOSEC] 20 mg PO DAILY 01/16/22 04/02/22 Pramipexole Di-HCl [Mirapex] 0.125 mg PO HS 01/17/22 04/02/22 Baclofen 10 mg PO HS 02/06/22 04/02/22 Fluticasone Nasal [place] [Flonase 2 spray EA NOSTRIL DAILY PRN 02/06/22 04/02/22 Nasal [place]] INSULIN ASPART (NovoLOG) [NovoLOG See Protocol SQ ACHS 02/06/22 04/02/22 (formulary)] Nitroglycerin Sl Tabs [Nitrostat] 0.4 mg SUBLINGUAL Q5M PRN 02/06/22 03/31/22 Varenicline [Chantix Continuing 1 mg PO DAILY 02/06/22 04/02/22 Pack] amLODIPine [Norvasc] 10 mg PO DAILY 02/06/22 04/02/22 Insulin NPH Human Isophane 35 units SQ HS 03/31/22 04/02/22 [NovoLIN N] Previous Rx's Medication Instructions Recorded Apixaban [Eliquis] 5 mg PO BID #60 tab 10/21/21 Atorvastatin [Lipitor] 40 mg PO HS #30 tablet 10/21/21 Acetaminophen Tab [Tylenol] 650 mg PO Q6HR PRN tab 01/21/22 Clopidogrel [Plavix] 75 mg PO DAILY #30 tab 04/03/22 metFORMIN HCL [Glucophage] 1,000 mg PO BID #0 04/03/22 HYDROcodone/APAP 7.5-325MG [[place] 1 tab PO Q4HR PRN #18 tab 04/07/22 7.5-325] Allergies Allergy/AdvReac Type Severity Reaction Status Date / Time bee venom protein (honey bee) Allergy Anaphylaxis Verified 07/09/22 12:18 cephalexin [From Keflex] Allergy Rash/Hives Verified 07/09/22 12:18 codeine Allergy rash, Verified 07/09/22 12:18 swelling latex Allergy Rash/Hives Verified 07/09/22 12:18 Penicillins Allergy Swelling Verified 07/09/22 12:18 Sulfa (Sulfonamide Allergy Unknown Verified 07/09/22 12:18 Antibiotics) Review of Systems ROS Statement: Those systems with pertinent positive or pertinent negative responses have been documented in the HPI. ROS Other: All systems not noted in ROS Statement are negative. Past Medical History Past Medical History: Cancer, CVA/TIA, Diabetes Mellitus, GERD/Reflux, Hyperlipidemia, Hypertension, Osteoarthritis (OA), Sleep Apnea/CPAP/BIPAP Additional Past Medical History / Comment(s): states 7 strokes, states left foot drop, and wears an AFO, hx of cervical CA, and colon CA 2002, had chemo and radiation, restless leg, neuropathy tr legs, states has had weight loss, at one time weighed 545lbs, uses CPAP History of Any Multi-Drug Resistant Organisms: None Reported Past Surgical History: Bowel Resection, Heart Catheterization, Heart Catheterization With Stent, Hernia Repair, Hysterectomy, Joint Replacement, Pacemaker Additional Past Surgical History / Comment(s): hx of colostomy, and then reversal, tr cataract sx, left hip replaced, states had 5 hernia repairs with mesh, loop recorder, recent heart cath., panniculectomy, recent aortogram, aorta valve replacemnet 04/02/22 Past Anesthesia/Blood Transfusion Reactions: No Reported Reaction Date of Last Stent Placement:: 2013 Type of Cardiac Device: Loop Device Placement Date:: 12/23/20 Past Psychological History: Depression Smoking Status: Former smoker Past Alcohol Use History: None Reported Past Drug Use History: None Reported - Past Family History Brother(s) Family Medical History: Cancer Sister(s) History Unknown: Yes Daughter(s) History Unknown: Yes Son(s) Family Medical History: No Reported History Father Family Medical History: Cancer, Coronary Artery Disease (CAD), Diabetes Mellitus Mother Family Medical History: Coronary Artery Disease (CAD), CVA/TIA, Diabetes Mellitus General Exam Limitations: no limitations General appearance: alert, in no apparent distress Head exam: Present: atraumatic Eye exam: Present: PERRL. Absent: EOMI Neck exam: Present: normal inspection. Absent: tenderness, meningismus Respiratory exam: Present: normal lung sounds bilaterally. Absent: respiratory distress, wheezes Cardiovascular Exam: Present: regular rate, normal rhythm GI/Abdominal exam: Present: soft. Absent: distended, tenderness Extremities exam: Present: normal inspection, normal capillary refill Neurological exam: Present: alert, oriented X3, CN II-XII intact, motor sensory deficit (Patient has right upper extremity drift, with ataxia, right lower extremity some old drift with ataxia, numbness to the right arm. NIH of 5) Psychiatric exam: Present: normal affect, normal mood Skin exam: Present: warm, dry, intact. Absent: cyanosis, diaphoretic Course Vital Signs 07/09/22 07/09/22 12:13 12:27 Temperature 97.9 F 97.8 F Pulse Rate 84 74 Respiratory 18 16 Rate Blood Pressure 122/69 120/78 O2 Sat by Pulse 97 97 Oximetry EKG Findings - EKG Comments: EKG Findings:: EKG: Sinus rhythm rate of 73, MN interval 155, QRS duration 79, QTC [address] segment elevation. Medical Decision Making - Medical Decision Making 72-year-old female presenting with acute abdominal vision, right arm numbness and weakness, right leg weakness. Initial NIH of 5. This does improve while in the emergency department to an NIH of 3 with increased strength in both the upper and lower right extremities, improvement of double vision and resolution of ataxia. Patient is anticoagulated at baseline and is not a TPA candidate secondary to low NIH and prior anticoagulation status. I did discuss case with Dr. Bowles, who is able to review the imaging. Not a TPA and not a thrombectomy candidate secondary to low NIH and improving symptoms. Patient's given IV fluid and aspirin in the emergency department. She will be admitted for further stroke evaluation. Case discussed with Dr. qureshi. - Lab Data Result diagrams: 07/09/22 12:36 07/09/22 12:36 Lab Results 07/09/22 07/09/22 07/09/22 Range/Units 12:31 12:36 12:36 WBC 8.5 (3.8-10.6) k/uL RBC 4.89 (3.80-5.40) m/uL Hgb 17.0 H D (11.4-16.0) gm/dL Hct 49.4 H (34.0-46.0) % MCV 100.9 H (80.0-100.0) fL MCH 34.8 (25.0-35.0) pg MCHC 34.5 (31.0-37.0) g/dL RDW 13.2 (11.5-15.5) % Plt Count 201 (150-450) k/uL MPV 8.3 Neutrophils % 66 % Lymphocytes % 26 % Monocytes % 5 % Eosinophils % 1 % Basophils % 1 % Neutrophils # 5.6 (1.3-7.7) k/uL Lymphocytes # 2.2 (1.0-4.8) k/uL Monocytes # 0.5 (0-1.0) k/uL Eosinophils # 0.1 (0-0.7) k/uL Basophils # 0.1 (0-0.2) k/uL PT 10.6 (9.0-12.0) sec INR 1.0 (<1.2) APTT 24.7 (22.0-30.0) sec Sodium (137-145) mmol/L Potassium (3.5-5.1) mmol/L Chloride (98-107) mmol/L Carbon Dioxide (22-30) mmol/L Anion Gap mmol/L BUN (7-17) mg/dL Creatinine (0.52-1.04) mg/dL Est GFR (CKD-EPI)AfAm (>60 ml/min/1.73 sqM) Est GFR (CKD-EPI)NonAf (>60 ml/min/1.73 sqM) Glucose (74-99) mg/dL POC Glucose (mg/dL) 197 H (70-110) mg/dL POC Glu Carburetor Rebuilder Kirsten Recio Calcium (8.4-10.2) mg/dL Total Bilirubin (0.2-1.3) mg/dL AST (14-36) U/L ALT (4-34) U/L Alkaline Phosphatase (38-126) U/L Troponin I (0.000-0.034) ng/mL Total Protein (6.3-8.2) g/dL Albumin (3.5-5.0) g/dL 07/09/22 07/09/22 Range/Units 12:36 12:36 WBC (3.8-10.6) k/uL RBC (3.80-5.40) m/uL Hgb (11.4-16.0) gm/dL Hct (34.0-46.0) % MCV (80.0-100.0) fL MCH (25.0-35.0) pg MCHC (31.0-37.0) g/dL RDW (11.5-15.5) % Plt Count (150-450) k/uL MPV Neutrophils % % Lymphocytes % % Monocytes % % Eosinophils % % Basophils % % Neutrophils # (1.3-7.7) k/uL Lymphocytes # (1.0-4.8) k/uL Monocytes # (0-1.0) k/uL Eosinophils # (0-0.7) k/uL Basophils # (0-0.2) k/uL PT (9.0-12.0) sec INR (<1.2) APTT (22.0-30.0) sec Sodium 138 (137-145) mmol/L Potassium 4.3 (3.5-5.1) mmol/L Chloride 103 (98-107) mmol/L Carbon Dioxide 21 L (22-30) mmol/L Anion Gap 14 mmol/L BUN 24 H (7-17) mg/dL Creatinine 0.82 (0.52-1.04) mg/dL Est GFR (CKD-EPI)AfAm 84 (>60 ml/min/1.73 sqM) Est GFR (CKD-EPI)NonAf 73 (>60 ml/min/1.73 sqM) Glucose 194 H (74-99) mg/dL POC Glucose (mg/dL) (70-110) mg/dL POC Glu Carburetor Rebuilder ID Calcium 9.5 (8.4-10.2) mg/dL Total Bilirubin 1.3 (0.2-1.3) mg/dL AST 27 (14-36) U/L ALT 23 (4-34) U/L Alkaline Phosphatase 142 H (38-126) U/L Troponin I <0.012 (0.000-0.034) ng/mL Total Protein 7.5 (6.3-8.2) g/dL Albumin 4.5 (3.5-5.0) g/dL Critical Care Time Critical Care Time: Yes Total Critical Care Time: 35 Disposition Clinical Impression: Cerebrovascular accident (CVA) Disposition: ADMITTED IP TO THIS HOSP Condition: Stable Is patient prescribed a controlled substance at d/c from ED?: No Referrals: Zhang Holguin MD [Primary Care Provider] - 1-2 days Time of Disposition: 13:51
[2022-07-09 12:33] LABS: Glucose,Whole Blood 197 mg/dL (70-110)
--- NOTE | 2022-07-09 12:49 | CT ---
EXAMINATION TYPE: CT brain wo con for TPA DATE OF EXAM: 07/09/2022 COMPARISON: 01/16/2022 HISTORY: Neuro deficit CT DLP: 1052.6 mGycm Automated exposure control for dose reduction was used. FINDINGS: Calcification in the pineal gland noted. Sella turcica has a normal appearance. Craniocervical juncti on maintained. Intracranial atherosclerotic changes noted. Orbits are symmetric. Sinuses are clear. C alvarium intact. Ventricular system compatible the patient's age with no midline shift or mass effect. No acute hemorr deepali. On axial image 18 in the left MCA may be slightly hyperdense. Recommend CTA [place] to exclude thrombus. IMPRESSION: NO ACUTE HEMORRHAGE OR MASS EFFECT. LEFT MCA MAY BE SLIGHTLY HYPERDENSE ON IMAGE 18 WHICH COULD REPRE SENT THROMBUS. CORRELATION WITH CTA RECOMMENDED. IF CLINICAL CONCERN FOR ACUTE ISCHEMIA CORRELATE WIT H MRI CLINICALLY WARRANTED.
[2022-07-09 12:54] LABS: Partial Thromboplastin Time 24.7 sec (22.0-30.0); Prothrombin Time 10.6 sec (9.0-12.0)
[2022-07-09 12:55] LABS: Basophils # (A) 0.1 k/uL (0-0.2); Basophils % (A) 1 %; Eosinophils # (A) 0.1 k/uL (0-0.7); Eosinophils % (A) 1 %; HCT 49.4 % (34.0-46.0); Lymphocytes # (A) 2.2 k/uL (1.0-4.8); Lymphocytes % (A) 26 %; MCH 34.8 pg (25.0-35.0); MCHC 34.5 g/dL (31.0-37.0); MCV 100.9 fL (80.0-100.0); Mean Platelet Volume 8.3; Monocytes # (A) 0.5 k/uL (0-1.0); Monocytes % (A) 5 %; Neutrophils # (A) 5.6 k/uL (1.3-7.7); Neutrophils % (A) 66 %; Platelet Count 201 k/uL (150-450); RBC 4.89 m/uL (3.80-5.40); RDW 13.2 % (11.5-15.5); WBC 8.5 k/uL (3.8-10.6)
[2022-07-09] MEDS ORDERED: SODIUM CHLORIDE 0.9% 1,000 ML IV ONE (12:57)
[2022-07-09 12:58] LABS: Albumin 4.5 g/dL (3.5-5.0); Calcium 9.5 mg/dL (8.4-10.2); Potassium 4.3 mmol/L (3.5-5.1); Total Bilirubin 1.3 mg/dL (0.2-1.3); Total Protein 7.5 g/dL (6.3-8.2)
--- NOTE | 2022-07-09 13:18 | XR ---
EXAMINATION TYPE: XR chest 2V DATE OF EXAM: 07/09/2022 COMPARISON: Chest x-ray June 10, 2022. HISTORY: Altered mental status and weakness TECHNIQUE: Frontal and lateral views of the chest are obtained. FINDINGS: Overlying loop recorder. Mild chronic parenchymal changes bilaterally redemonstrated. There is no suspicious focal air space opacity, pleural effusion, or pneumothorax seen. The cardiac silho uette size remains within normal limits with atherosclerotic change aortic knob. The osseous struct ures are intact. IMPRESSION: No acute process. No significant change from recent x-ray.
--- NOTE | 2022-07-09 13:35 | CT ---
EXAMINATION TYPE: CT angio head neck DATE OF EXAM: 07/09/2022 HISTORY: cva COMPARISON: CT brain 07/09/2022 CT DLP: 510.6 mGycm. Automated Exposure Control for Dose Reduction was Utilized. TECHNIQUE: CTA scan of the neck is performed with IV Contrast, patient injected with 65cc mL of Isov ue 370, axial images are obtained, coronal and sagittal reformatted images are reviewed. Three-D rambo nstructed images are created on an independent workstation and reviewed. Source images are reviewed. FINDINGS: Carotid/Vascular Structures: There is a three-vessel arch. Common carotid arteries bifurcate into int ernal and external carotid arteries. Internal carotid arteries are patent to the skull base. Plaquing is present at the bilateral carotid bifurcations without significant flow-limiting stenosis. Cervical of [place]: Vertebral basilar system appears normal. Posterior cerebral vasculature is unrema rkable. Internal carotid arteries bifurcate normally into A1 and M1 segments. A2 segments are normal. The anterior communicating artery is patent. Posterior communicating arteries are absent. This exam is compared to the 07/09/2022 CT brain study. The left M1 branch is widely patent without ob vious filling defect. No obstruction at this level is present. Follow-up can be performed as clinical ly indicated. IMPRESSION: 1. No flow-limiting stenosis bilateral carotid bifurcations. 2. Normal [place] NASCET criteria was used in interpretation of this exam?
[2022-07-09] MEDS ORDERED: ASPIRIN 325 MG TAB PO STA (13:48)
[2022-07-09] MEDS: SODIUM CHLORIDE 0.9% 1,000 ML IV SCH (14:46)
[2022-07-09] MEDS ORDERED: ACETAMINOPHEN TAB 325 MG TAB PO PRN (17:11)
[2022-07-09] MEDS ORDERED: NITROGLYCERIN SL TABS 0.4 MG TAB SUBLINGUAL PRN (17:11)
[2022-07-09] MEDS ORDERED: FLUTICASONE 50MCG/SPRAY NASAL 16GM EA NOSTRIL PRN (17:11)
[2022-07-09] MEDS: ATORVASTATIN 40 MG TAB PO SCH (22:22)
[2022-07-09] MEDS: BACLOFEN 10 MG TAB PO SCH (22:22)
[2022-07-09] MEDS: MULTIVITAMINS, THERA 1 EACH TAB PO SCH (22:22)
[2022-07-09] MEDS: APIXABAN 5 MG TAB PO SCH (22:22)
[2022-07-09 23:04] LABS: Glucose,Whole Blood 130 mg/dL (70-110)
[2022-07-09] MEDS: PRAMIPEXOLE 0.125 MG TAB PO SCH (23:06)
[2022-07-09] MEDS: INSULIN NPH 300 UNIT/3 ML VIAL SQ SCH (23:07)
--- NOTE | 2022-07-10 03:13 | HP ---
HISTORY AND PHYSICAL CHIEF COMPLAINT: Right-sided weakness. HISTORY OF PRESENT ILLNESS: This is a 72-year-old woman with past medical history of diabetes mellitus, CVA, GERD, hypertension, hyperlipidemia, being followed by Dr. Zhang Holguin in the outpatient setting, is complaining of acute onset gait difficulty, double vision and right-sided numbness and weakness. The patient came to [facility], admitted for further evaluation and treatment. There is no history of any fever, rigors, or chills at this time. Stroke was suspected. A CT brain and CT angio which was done in the ER reviewed personally by me showed no acute abnormality. Neurology is consulted, the patient admitted for further evaluation and treatment. There is no history of fever, rigors, or chills. PAST MEDICAL HISTORY: Reviewed include diabetes, GERD, and multiple strokes. HOME MEDICATIONS: Again reviewed include Glucophage, doses and rest of medications noted. ALLERGIES: Reviewed include bee venom. FAMILY HISTORY: History of cancer. SOCIAL HISTORY: Previous smoker. REVIEW OF SYSTEMS: A 14-point review is negative except mentioned earlier. PHYSICAL EXAMINATION: VITAL SIGNS: Pulse is 62, blood pressure ntd, respirations 16. HEENT: Conjunctivae normal. NECK: No jugular venous distention. CARDIOVASCULAR: S1, S2 muffled. RESPIRATIONS: Breath sounds diminished at the bases. No rhonchi, no crackles. ABDOMEN: Soft, nontender. LEGS: No edema. NERVOUS SYSTEM: As aforementioned, cranial nerves II through XII grossly intact. Mild diffuse weakness. Minimal incoordination also present in the hands. SKIN: No ulcer or rash. JOINTS: No active deforming or arthropathy. LABORATORY DATA: WBC 8, hemoglobin 17, other labs are noted. ASSESSMENT: 1. Right-sided weakness and dizziness. for evaluation, rule out possible acute stroke and cerebrovascular accident. 2. Diabetes mellitus, type 2. 3. Hypertension. 4. Hyperlipidemia. 5. History of previous multiple strokes. 6. Multiple medical issues. RECOMMENDATIONS: This 72-year-old woman presented with multiple complex medical issues, we will monitor the patient closely, initiate antiplatelet and neurological evaluation to complete neurovascular workup. Closely monitor. Prognosis guarded. The patient also might require MRI and further workup as well recently. Continue to monitor. MMODL / IJN: [id number] / [facility]
[2022-07-10] MEDS: ALBUTEROL HFA INHALER INHALATION PRN (08:36)
[2022-07-10 09:09] LABS: Glucose,Whole Blood 133 mg/dL (70-110)
--- NOTE | 2022-07-10 09:19 | P.CNNES ---
History of Present Illness Consult date: 07/09/22 Requesting physician: Ash Hale Reason for Consult: CVA History of Present Illness: Patient is a 72-year-old female came to the hospital today at 12:09 PM for evaluation of multiple neurological symptoms. Patient states that she started having headache since 07/06/2022 (for last 3 days). She woke up with a headache. It involves right frontal temporal region, and extends to the right occipital region, rates 7/10. Also points to the right facial region. She did feel some nausea yesterday and vomited once yesterday. She always have photophobia, nothing new, and not more than baseline. Denies any photophobia. She was otherwise stable. Patient states that yesterday at 10 AM she was at cardio therapy when she threw up shelter through the therapy and she has been feeling woozy since then. This morning she was clearing boxes that she has picked from the store yesterday sitting on the couch in the kitchen at 10:30a.m. when all of a sudden she noticed as if there is a waterfall around the right eye orbit, that she could not focus, was noticing double vision. She tried to cover right eye and felt better although still problem with focusing. She got up, and was standing, doing dishes that needed to be cleaned from the boxes, when she noticed her right side went numb, pointing from right side of the neck to the right arm and the right leg but not involving the face. At that time she was standing, washing some dishes, when she passed out, fell on the right side. When she came to, she was laying on the floor, and the dog licking her face. She did not bite her tongue, although did lose control of urine. Her right upper lateral thigh region hurts from the fall. She also notices bruise in the left lower medial martinez region, which she believes is from the fall. She states that it took a few minutes for her to get off the floor, but does not remember how long she was on the floor. She apparently called her doctor at 11:13 AM with her cell phone, who told him that they will call her back. She then called her son at 11:18 AM, who noticed patient was having some speech difficulty/slurring. He brought her to the hospital. Patient at present he takes Plavix and Eliquis, and is compliant with it. Patient states that at present her headache is still present, not bad as earlier, rates it 5/10, and her shoulder and back also hurts. She aches from "head to toe". She still has trouble focusing with the right eye. Patient states that her speech has improved although she has to sit and think words. The numbness is "little bit left in the right hand". Her right peripheral vision is affected since this happened. She feels like is in a "tube". Patient denies any history of headaches, "not prone to headaches". No history of migraines. She claims she has history of CVA in March 2022. She has history of valve replacement in March 2022. Vital signs arrival blood pressure 122/69, pulse rate 84 temperature 97.9. Blood test shows normal WBC hemoglobin 17.0, hematocrit to deny 0.4 with MCV 100.9. Platelets are normal 201. PT/PTT normal. Electrolytes are normal, BUN 24 creatinine 0.82. Hepatic panel is normal, troponin negative. CT head showed no acute hemorrhage or mass effect. Left MCA may be slightly hyperdense on image 18 which could represent thrombus. Correlate with CTA recommended. CTA of [place] is normal. CTA of the neck showed no flow-limiting stenosis bilateral carotid bifurcations. EKG shows sinus rhythm. Chest x-ray showed no acute process. No significant change from recent x-ray. Patient says that she quit tobacco on 02/14/2022. She has smoked half pack per day since age 18. Denies any alcohol use. She smokes marijuana, but her leg pain gets worse. Patient has history of retina repair 2 years ago. She is slightly restricted vision in the right eye. Patient has been seen by myself on 10/18/2021, when she has presented with syncope. She was found to have severe aortic stenosis, which was felt to be the cause of the syncope. She had a normal EEG at that time. Tilt table test was recommended. Patient has subsequently presented on 01/17/2022 with similar symptoms off blurred vision, double vision, expressive aphasia, and was seen by Dr. Ish Kirkpatrick. Review of Systems Constitutional: Denies chills, Denies fever Eyes: right blurred vision, bilateral diplopia Ears: deny: ear discharge, earache Ears, nose, mouth and throat: Reports headache, Denies sore throat Cardiovascular: Denies chest pain, Denies shortness of breath Respiratory: Denies cough Gastrointestinal: Denies abdominal pain, Denies diarrhea, Denies nausea, Denies vomiting Musculoskeletal: Reports myalgias Integumentary: Denies pruritus, Denies rash Neurological: Reports as per HPI Psychiatric: Denies anxiety, Denies depression Hematologic/Lymphatic: Denies easy bruising Allergic/Immunologic: Denies anaphylaxis, Denies wheezing Past Medical History Past Medical History: Cancer, CVA/TIA, Diabetes Mellitus, GERD/Reflux, Hyperlipidemia, Hypertension, Osteoarthritis (OA), Sleep Apnea/CPAP/BIPAP Additional Past Medical History / Comment(s): states 7 strokes, states left foot drop, and wears an AFO, hx of cervical CA, and colon CA 2002, had chemo and radiation, restless leg, neuropathy tr legs, states has had weight loss, at one time weighed 545lbs, uses CPAP History of Any Multi-Drug Resistant Organisms: None Reported Past Surgical History: Bowel Resection, Heart Catheterization, Heart Catheterization With Stent, Hernia Repair, Hysterectomy, Joint Replacement, Pace maker Additional Past Surgical History / Comment(s): hx of colostomy, and then reversal, tr cataract sx, left hip replaced, states had 5 hernia repairs with mesh, loop recorder, recent heart cath., panniculectomy, recent aortogram, aorta valve replacemnet 04/02/22 Past Anesthesia/Blood Transfusion Reactions: No Reported Reaction Date of Last Stent Placement:: 2013 Type of Cardiac Device: Loop Device Placement Date:: 12/23/20 Past Psychological History: Depression Smoking Status: Former smoker Past Alcohol Use History: None Reported Past Drug Use History: None Reported - Past Family History Brother(s) Family Medical History: Cancer Sister(s) History Unknown: Yes Daughter(s) History Unknown: Yes Son(s) Family Medical History: No Reported History Father Family Medical History: Cancer, Coronary Artery Disease (CAD), Diabetes Mellitus Mother Family Medical History: Coronary Artery Disease (CAD), CVA/TIA, Diabetes Mellitus Medications and Allergies Home Medications Medication Instructions Recorded Confirmed Type Albuterol Inhaler [Ventolin Hfa 2 puff INHALATION RT-QID PRN 10/17/21 07/09/22 History Inhaler] Multivit-Min/Iron/Folic/Lutein 1 tab PO BID 10/17/21 07/09/22 History [Centrum Silver Women Tablet] Sertraline [Zoloft] 50 mg PO DAILY 10/18/21 07/09/22 History Apixaban [Eliquis] 5 mg PO BID #60 tab 10/21/21 07/09/22 Rx Atorvastatin [Lipitor] 40 mg PO HS #30 tablet 10/21/21 07/09/22 Rx Insulin NPH Human Isophane 30 units SQ QAM 01/16/22 07/09/22 History [NovoLIN N] Omeprazole [PriLOSEC] 20 mg PO DAILY 01/16/22 07/09/22 History Pramipexole Di-HCl [Mirapex] 0.125 mg PO HS 01/17/22 07/09/22 History Acetaminophen Tab [Tylenol] 650 mg PO Q6HR PRN tab 01/21/22 07/09/22 Rx Baclofen 10 mg PO HS 02/06/22 07/09/22 History Fluticasone Nasal Dime Box [Flonase 2 spray EA NOSTRIL DAILY PRN 02/06/22 07/09/22 History Nasal Dime Box] Nitroglycerin Sl Tabs [Nitrostat] 0.4 mg SUBLINGUAL Q5M PRN 02/06/22 07/09/22 History amLODIPine [Norvasc] 10 mg PO DAILY 02/06/22 07/09/22 History Insulin NPH Human Isophane 35 units SQ HS 03/31/22 07/09/22 History [NovoLIN N] Clopidogrel [Plavix] 75 mg PO DAILY #30 tab 04/03/22 07/09/22 Rx metFORMIN HCL [Glucophage] 1,000 mg PO BID #0 04/03/22 07/09/22 Rx Allergies Allergy/AdvReac Type Severity Reaction Status Date / Time bee venom protein (honey bee) Allergy Anaphylaxis Verified 07/09/22 14:09 cephalexin [From Keflex] Allergy Rash/Hives Verified 07/09/22 14:09 codeine Allergy rash, Verified 07/09/22 14:09 swelling latex Allergy Rash/Hives Verified 07/09/22 14:09 Penicillins Allergy Swelling Verified 07/09/22 14:09 Sulfa (Sulfonamide Allergy Unknown Verified 07/09/22 14:09 Antibiotics) Physical Examination - Vital Signs Vital Signs: Vital Signs Temp Pulse Resp BP Pulse Ox 07/10/22 06:00 58 L 20 124/66 92 L 07/10/22 04:00 70 16 132/82 93 L 07/10/22 02:00 69 20 119/73 95 07/09/22 22:00 65 21 121/58 92 L 07/09/22 21:00 58 L 20 155/78 93 L 07/09/22 20:00 60 18 169/86 93 L 07/09/22 19:00 61 19 168/82 93 L 07/09/22 18:01 64 18 145/84 96 07/09/22 18:00 61 18 167/98 93 L 07/09/22 17:00 67 15 138/74 96 07/09/22 16:49 63 18 95 07/09/22 16:15 67 21 100 07/09/22 14:49 65 16 142/76 97 07/09/22 13:49 62 16 136/70 98 07/09/22 12:27 97.8 F 74 16 120/78 97 07/09/22 12:13 97.9 F 84 18 122/69 97 Patient is an elderly female, in no acute distress. Patient is alert awake oriented to time place and person. Speech and language functions are normal. Patient can name and repeat very well. No aphasia or dysarthria. Attention, concentration and fund of knowledge is adequate. On cranial nerve examination, pupils are equal, round and reacting to light, visual whitehead reveals very distal peripheral visual field defect mainly invo lving the right eye. The visual whitehead are normal in the left eye. There is no neglect on double simultaneous depression. Extraocular muscles are intact with no nystagmus. Patient frequently closes her eyes on looking to the right because it strains her. Face is symmetric, tongue protrudes to the midline. Palatal elevation and sensation normal, hearing and shoulder shrug normal, facial sensation decreased on the right side for touch as compared to the left. On muscle strength testing, there is no pronator drift and the strength is normal in arms and legs distally and proximally. Patient claims that she uses AFO in the left foot, but the strength is completely normal in both ankles. Deep tendon reflexes are symmetric biceps 1, brachioradialis trace, knee 1, ankle trace and plantars downgoing bilaterally. Sensory to touch is decreased in the right upper extremity as compared to the left upper extremity. Sensations is equal in the lower activities bilaterally. There is no neglect on double simultaneous stimulation. Cerebellar function showed mild ataxia [id number] testing bilaterally. Slight incoordination for [id number]-[id number] testing, more right more than left. Tone and bulk of muscles normal. Gait deferred.. On general examination, there is no carotid bruit or murmur, S1-S2 audible. Chest is clear on consultation. Abdomen is soft nontender. No organomegaly, bowel sounds present. Peripheral pulses are present. No edema. Results - Laboratory Findings CBC and BMP: 07/09/22 12:36 07/09/22 12:36 Abnormal Lab Findings: Abnormal Labs 07/09/22 07/09/22 07/09/22 12:31 12:36 12:36 Hgb 17.0 H D Hct 49.4 H MCV 100.9 H Carbon Dioxide 21 L BUN 24 H Glucose 194 H POC Glucose (mg/dL) 197 H Alkaline Phosphatase 142 H 07/09/22 23:03 Hgb Hct MCV Carbon Dioxide BUN Glucose POC Glucose (mg/dL) 130 H Alkaline Phosphatase Assessment and Plan Assessment: * Possible stroke/TIA manifesting with blurred vision, diplopia, speech difficulty and right-sided paresthesias. Her symptoms have improved, but not resolved yet. * Syncopal spell, unclear cause. * History of aortic stenosis, status post transcatheter aortic valve repair. * History of multiple strokes TIAs in the past (claims x7 in the past). * Diabetes * Hyperlipidemia * Hypertension * Neuropathy in the legs. * Obstructive sleep apnea. Plan: * MRI of the brain rule out CVA * EEG rule out epileptiform activity * Patient on Eliquis and Plavix, compliant with the medication. I will check with pharmacy regarding dose of Eliquis, as she is on a lower dose 2.5 mg twice a day. * Consider tilt table test for recurrent syncopal spells. Previously syncopal spells were felt to be related to aortic stenosis, which now has been repaired. * Patient's last 2-D echo from 04/03/2022 showed transcatheter valve was identified. No evidence of pericardial effusion. EF is 55-60%. Left atrial size is normal. * B12, folate, B6, MMA. Hemoglobin A1c. Lipid panel * Continue telemetry monitoring. * Neurology will follow. Thank you for the consult. Time with Patient: Greater than 30 (Spent greater than 75 minutes in evaluation, and record review.)
[2022-07-10 09:58] LABS: Chol/HDL Ratio 4.22 Ratio; LDL Cholesterol,Calculated 107.3 mg/dL (0.0-131.0)
[2022-07-10 10:36] LABS: Glucose,Whole Blood 222 mg/dL (70-110)
[2022-07-10] MEDS: INSULIN NPH 300 UNIT/3 ML VIAL SQ SCH ×2 (10:38→21:00)
[2022-07-10] MEDS: CLOPIDOGREL 75 MG TAB PO SCH (10:38)
[2022-07-10] MEDS: amLODIPine 10 MG TAB PO SCH (10:38)
[2022-07-10] MEDS: ASPIRIN 325 MG TAB PO SCH (10:38)
[2022-07-10] MEDS: MULTIVITAMINS, THERA 1 EACH TAB PO SCH ×2 (10:38→20:51)
[2022-07-10] MEDS: SERTRALINE 50 MG TAB PO SCH (10:39)
[2022-07-10] MEDS: APIXABAN 5 MG TAB PO SCH ×2 (10:39→20:52)
[2022-07-10] MEDS: PANTOPRAZOLE 40 MG TABLET PO SCH (10:39)
[2022-07-10] MEDS: SODIUM CHLORIDE 0.9% 1,000 ML IV SCH ×2 (11:33→20:52)
[2022-07-10 12:31] LABS: Glucose,Whole Blood 167 mg/dL (70-110)
[2022-07-10 16:48] LABS: Glucose,Whole Blood 105 mg/dL (70-110)
[2022-07-10 20:12] LABS: Glucose,Whole Blood 166 mg/dL (70-110)
[2022-07-10] MEDS: ATORVASTATIN 40 MG TAB PO SCH (20:51)
[2022-07-10] MEDS: BACLOFEN 10 MG TAB PO SCH (20:52)
[2022-07-10] MEDS: PRAMIPEXOLE 0.125 MG TAB PO SCH (21:01)
--- NOTE | 2022-07-10 23:42 | EEG ---
ELECTROENCEPHALOGRAM REPORT PREAMBLE: This is a 72-year-old female with a syncopal spell versus seizure. This study was performed to evaluate for any epileptiform activity. EEG FINDINGS: This is a 21-channel digital EEG recorded with video component, utilizing 10/20 international system with referential and bipolar montages. Background consists of well developed, well regulated moderate voltage activity in 9 to 10 hertz alpha. Background is posterior dominant and reactive to eye opening and closing. Photic driving response was seen with some flash frequencies. Drowsiness was seen with appearance of bilaterally symmetric theta frequency rhythm. Some stage 2 sleep was seen with presence of sleep spindles and vertex waves. No focal or generalized epileptiform activity was seen. EKG channel showed no obvious arrhythmia. IMPRESSION: This is a normal EEG during wakefulness, drowsiness, and brief stage 2 sleep. No focal, lateralized or epileptiform activity was seen. MMODL / IJN: [id number] /
[2022-07-11 06:03] LABS: Glucose,Whole Blood 114 mg/dL (70-110)
[2022-07-11] MEDS: SODIUM CHLORIDE 0.9% 1,000 ML IV SCH ×2 (06:07→21:22)
[2022-07-11] MEDS: PANTOPRAZOLE 40 MG TABLET PO SCH ×2 (06:11→17:29)
--- NOTE | 2022-07-11 09:00 | PN ---
PROGRESS NOTE SUBJECTIVE: This 72-year-old woman was admitted with weakness of the right side, also has a history of severe aortic stenosis. No chest pain. No palpitations. No fever. OBJECTIVE: VITAL SIGNS: Pulse 60, blood pressure NTD NECK: No jugular venous distention. CARDIOVASCULAR: S1 and S2 muffled. RESPIRATORY: Breath sounds diminished at the bases. ABDOMEN: Soft. NERVOUS SYSTEM: Mild diffuse weakness. LABORATORY DATA: Reviewed. ASSESSMENT: 1. Right-sided weakness and dizziness. Rule out acute stroke and cerebrovascular accident. 2. Diabetes mellitus, type 2. 3. History of aortic stenosis and transcatheter aortic valve replacement. 4. Hypertension. 5. Hyperlipidemia. 6. Multiple medical issues. RECOMMENDATIONS: Recommend to continue current medications and symptomatic treatment. Otherwise, closely follow with Cardiology and Neurology. Guarded prognosis. Further recommendations to follow. MMODL / IJN: [id number] / MTDD
[2022-07-11] MEDS: SERTRALINE 50 MG TAB PO SCH (09:24)
[2022-07-11] MEDS: ASPIRIN 325 MG TAB PO SCH (09:24)
[2022-07-11] MEDS: MULTIVITAMINS, THERA 1 EACH TAB PO SCH ×2 (09:24→19:52)
[2022-07-11] MEDS: APIXABAN 5 MG TAB PO SCH ×2 (09:25→19:52)
[2022-07-11] MEDS: amLODIPine 10 MG TAB PO SCH (09:25)
[2022-07-11] MEDS: CLOPIDOGREL 75 MG TAB PO SCH (09:25)
[2022-07-11] MEDS: INSULIN NPH 300 UNIT/3 ML VIAL SQ SCH ×2 (09:25→19:52)
--- NOTE | 2022-07-11 09:42 | P.PN ---
Subjective Progress Note Date: 07/10/22 Patient was seen for a follow-up. Patient states her headache is not as severe. She rates it 3/10. Still photophobic. Her speech she states is "getting there". Her visual symptoms are "clearing up". Regarding numbness, she states that it is only involving the fingertips of the right hand. Patient does have a loop recorder. Patient states it is MRI compatible. Objective - Vital Signs Vital signs: Vital Signs Temp 97.7 F 07/11/22 04:00 Pulse 64 07/11/22 04:00 Resp 16 07/11/22 04:00 BP 119/62 07/11/22 04:00 Pulse Ox 94 L 07/11/22 04:00 FiO2 Intake & Output 07/10/22 07/11/22 07/11/22 18:59 06:59 18:59 Intake Total 180 480 Balance 180 480 Weight 84.822 kg Intake: Oral 180 480 Other: Voiding Method Toilet # Voids 1 - Exam Patient is alert and awake, in no distress. Mental status, speech and language functions are normal. On muscle strength is no drift and the strength is normal in arms and legs. Sensations are equal. - Labs CBC & Chem 7: 07/09/22 12:36 07/09/22 12:36 Labs: Abnormal Lab Results - Last 24 Hours (Table) 07/09/22 07/10/22 07/10/22 Range/Units 12:36 05:42 10:35 POC Glucose (mg/dL) 222 H (70-110) mg/dL Hemoglobin A1c 8.0 H (0.0-6.0) % Triglycerides 158.00 H (0.00-149.00) mg/dL 07/10/22 07/10/22 07/11/22 Range/Units 12:18 20:10 06:02 POC Glucose (mg/dL) 167 H 166 H 114 H (70-110) mg/dL Hemoglobin A1c (0.0-6.0) % Triglycerides (0.00-149.00) mg/dL Assessment and Plan Assessment: * Possible stroke/TIA manifesting with blurred vision, diplopia, speech difficulty and right-sided paresthesias. Her symptoms have improved, but not resolved yet. * Syncopal spell, unclear cause. * History of aortic stenosis, status post transcatheter aortic valve repair. * History of multiple strokes TIAs in the past (claims x7 in the past). * Diabetes * Hyperlipidemia * Hypertension * Neuropathy in the legs. * Obstructive sleep apnea. Plan: * MRI of the brain rule out CVA pending * EEG was normal during wakefulness, drowsiness and brief stage II sleep. No focal, lateralized or epileptiform activity was seen. * Patient on Eliquis 5 mg twice a day and Plavix, compliant with the medication. Suggest keeping on one antiplatelet medication (currently on aspirin, Plavix, in addition to Eliquis). Patient on Protonix for gastric ulcer prophylaxis. * Consider tilt table test for recurrent syncopal spells. Previously syncopal spells were felt to be related to aortic stenosis, which now has been repaired. * Patient's last 2-D echo from 04/03/2022 showed transcatheter valve was identified. No evidence of pericardial effusion. EF is 55-60%. Left atrial size is normal. * B12 491, folate 15.0, B6, MMA. Hemoglobin A1c 8.0. Optimize control of diabetes to target A1c < 7.0. * Lipid panel cholesterol 182, LDL 107, HDL 43 and triglycerides 158. We will increase Lipitor to 80 mg daily to target LDL <70. Patient was on Lipitor 40 mg. * Continue telemetry monitoring.
[2022-07-11] MEDS ORDERED: MAG HYDROX/AL HYDROX/SIMETH 30 ML CUP PO PRN (11:17)
[2022-07-11 12:04] LABS: Glucose,Whole Blood 228 mg/dL (70-110)
[2022-07-11] MEDS: FAMOTIDINE 20 MG TAB PO SCH ×2 (12:14→19:52)
--- NOTE | 2022-07-11 13:47 | MR ---
MR brain without contrast HISTORY: Cerebrovascular accident Multiplanar multisequence imaging obtained through the brain. Correlation to prior MR brain 01/17/2022 There is no restricted diffusion to suggest subacute ischemia. No significant interval change in whit e matter is abnormality seen on prior exam, hyperintensities present on inversion recovery T2-weighte d sequences within the susi, periventricular and subcortical white matter similar to prior. There is no hemorrhage or hydrocephalus. Orbits show symmetric appearance. The corpus callosum, pituitary, cer vical medullary junction are stable, cerebellopontine angles are within normal limits. Some mild infl ammatory change present within the ethmoid air cells. IMPRESSION: No acute abnormality. Age-related changes of atrophy and chronic small vessel ischemia, s table exam. Mild sinus disease.
--- NOTE | 2022-07-11 16:19 | P.PN ---
Subjective Progress Note Date: 07/11/22 This is a 72-year-old female who was recently admitted with weakness of the right side also had history of severe aortic stenosis and is being closely monitored. Neurology following and plan is for MRI of the brain today. Patient undergoing neurological workup. Patient does have a loop recorder which is compatible per cardiology with MRI. Patient is currently maintained on oral anticoagulant in the form of eliquis along with Plavix and was given aspirin. Aspirin being discontinued per neurology. Patient reports some dyspepsia and will give Protonix twice daily along with some Maalox and Pepcid. Patient is currently working with physical therapy for evaluation. She denies chest pain or shortness of breath. Patient is afebrile and denies any nausea or vomiting. Review of systems: Constitutional: No reports of fatigue, fever, or chills Cardiovascular: No reports of chest pain or palpitations Respiratory: No reports of shortness of breath or cough GI: No reports of nausea, no reports of of vomiting, diarrhea, reports some indigestion : No reports of dysuria or retention Neurovascular: reports of generalized weakness All medications have been reviewed Active Medications Acetaminophen (Acetaminophen Tab 325 Mg Tab) 650 mg PO Q6HR PRN PRN Reason: Fever and/ or Mild Pain Last Admin: 07/10/22 20:52 Dose: 650 mg Al Hydroxide/Mg Hydroxide (Mag Hydrox/Al Hydrox/Simeth 30 Ml Cup) 30 ml PO Q4HR PRN PRN Reason: GI Upset Albuterol Sulfate (Albuterol Hfa Inhaler) 2 puff INHALATION RT-QID PRN PRN Reason: Shortness Of Breath Last Admin: 07/10/22 08:36 Dose: 2 puff Amlodipine Besylate (Amlodipine 10 Mg Tab) 10 mg PO DAILY [facility] Last Admin: 07/11/22 09:25 Dose: 10 mg Apixaban (Apixaban 5 Mg Tab) 5 mg PO BID [facility]; Protocol Last Admin: 07/11/22 09:25 Dose: 5 mg Atorvastatin Calcium (Atorvastatin 80 Mg Tab) 80 mg PO HS ALIYAH Baclofen (Baclofen 10 Mg Tab) 10 mg PO HS [facility] Last Admin: 07/10/22 20:52 Dose: 10 mg Clopidogrel Bisulfate (Clopidogrel 75 Mg Tab) 75 mg PO DAILY [facility] Last Admin: 07/11/22 09:25 Dose: 75 mg Famotidine (Famotidine 20 Mg Tab) 20 mg PO BID [facility] Last Admin: 07/11/22 12:14 Dose: 20 mg Fluticasone Propionate (Fluticasone 50mcg/[place] Nasal 16gm) 2 spray EA NOSTRIL DAILY PRN PRN Reason: allergies Sodium Chloride (Saline 0.9%) 1,000 mls @ 100 mls/hr IV .Q10H [facility] Last Admin: 07/11/22 06:07 Dose: Not Given Insulin Human NPH (Insulin Nph 300 Unit/3 Ml Vial) 35 unit SQ HS [facility] Last Admin: 07/10/22 21:00 Dose: 35 unit Insulin Human NPH (Insulin Nph 300 Unit/3 Ml Vial) 30 unit SQ QAM [facility] Last Admin: 07/11/22 09:25 Dose: 30 unit Multivitamins (Multivitamins, Thera 1 Each Tab) 1 each PO BID [facility] Last Admin: 07/11/22 09:24 Dose: 1 each Nitroglycerin (Nitroglycerin Sl Tabs 0.4 Mg Tab) 0.4 mg SUBLINGUAL Q5M PRN PRN Reason: Chest Pain Pantoprazole Sodium (Pantoprazole 40 Mg Tablet) 40 mg PO AC-BID [facility] Pramipexole Dihydrochloride (Pramipexole 0.125 Mg Tab) 0.125 mg PO [facility] Last Admin: 07/10/22 21:01 Dose: 0.125 mg Sertraline HCl (Sertraline 50 Mg Tab) 50 mg PO DAILY [facility] Last Admin: 07/11/22 09:24 Dose: 50 mg PHYSICAL EXAMINATION: GENERAL: The patient is alert and oriented x4, Well developed, well nourished. HEENT: Pupils are round and equally reacting to light. EOMI. no scleral icterus. No conjunctival pallor. Normocephalic, atraumatic. No pharyngeal erythema. No thyromegaly. CARDIOVASCULAR: S1 and S2 muffled PULMONARY: diminished breath sounds bilaterally with no wheezing or rhonchi noted. ABDOMEN: soft. Nontender on exam. obese. non-distended, normoactive bowel sounds. No palpable organomegaly. MUSCULOSKELETAL: No joint swelling or deformity. EXTREMITIES: No cyanosis, clubbing, or pedal edema. NEUROLOGICAL: Gross neurological examination did not reveal any focal deficits. Diffuse weakness SKIN: No rashes. Assessment: Right side weakness and dizziness, rule out acute stroke and cerebrovascular accident Diabetes mellitus, type II History of aortic stenosis and transcatheter aortic valve replacement Hypertension Hyperlipidemia multiple medical issues GI prophylaxis DVT prophylaxis Full code Plan: Recommend to continue with current medications and management with neurological workup in progress. Patient is scheduled to undergo MRI of the brain today. Discussed the case with cardiology and verified that loop recorder is compatible with MRI as patient has had previous MRIs after loop recorder placement. Patient is currently working with physical therapy for evaluation and will await notes.. Await MRI report and will discuss with neurology. Recommend continue with Accu-Cheks before meals and at bedtime and continue current home medications. Recommend repeat labs in the morning with possible discharge in 24 hours. Due to multiple complex medical issues, prognosis is guarded. The impression and plan of care has been dictated by Mindy Saleh, nurse practitioner as directed. Dr. Yury MD I have performed a history and examination and MDM of this patient, discussed the same with the dictator, and agree with the dictator's assessment and plan as written ,documented as a scribe. Based on total visit time, I have performed more than 50% of the visit. Any additional findings or plans will be noted. Objective - Vital Signs Vital signs: Vital Signs Temp 97.8 F 07/11/22 08:00 Pulse 58 L 07/11/22 08:00 Resp 18 07/11/22 08:00 BP 127/62 07/11/22 08:00 Pulse Ox 97 07/11/22 08:00 FiO2 Intake & Output 07/10/22 07/11/22 07/11/22 18:59 06:59 18:59 Intake Total 180 480 Balance 180 480 Weight 84.822 kg Intake: Oral 180 480 Other: Voiding Method Toilet Toilet # Voids 1 - Labs CBC & Chem 7: 07/09/22 12:36 07/09/22 12:36 Labs: Abnormal Lab Results - Last 24 Hours (Table) 07/09/22 07/10/22 07/10/22 Range/Units 12:36 12:18 20:10 POC Glucose (mg/dL) 167 H 166 H (70-110) mg/dL Hemoglobin A1c 8.0 H (0.0-6.0) % 07/11/22 Range/Units 06:02 POC Glucose (mg/dL) 114 H (70-110) mg/dL Hemoglobin A1c (0.0-6.0) %
[2022-07-11 16:57] LABS: Glucose,Whole Blood 148 mg/dL (70-110)
[2022-07-11 19:45] LABS: Glucose,Whole Blood 165 mg/dL (70-110)
[2022-07-11] MEDS: BACLOFEN 10 MG TAB PO SCH (19:52)
[2022-07-11] MEDS: PRAMIPEXOLE 0.125 MG TAB PO SCH (20:32)
[2022-07-11] MEDS ORDERED: ATORVASTATIN 80 MG TAB PO SCH (21:00)
[2022-07-12] MEDS: PANTOPRAZOLE 40 MG TABLET PO SCH (06:22)
[2022-07-12] MEDS: MULTIVITAMINS, THERA 1 EACH TAB PO SCH (09:02)
[2022-07-12] MEDS: APIXABAN 5 MG TAB PO SCH (09:02)
[2022-07-12] MEDS: amLODIPine 10 MG TAB PO SCH (09:02)
[2022-07-12] MEDS: FAMOTIDINE 20 MG TAB PO SCH (09:02)
[2022-07-12] MEDS: CLOPIDOGREL 75 MG TAB PO SCH (09:02)
[2022-07-12] MEDS: SERTRALINE 50 MG TAB PO SCH (09:03)
--- NOTE | 2022-07-12 09:18 | P.PN ---
Subjective Progress Note Date: 07/11/22 Patient was seen for a follow-up. Patient states she is feeling better. She is complaining of significant heartburn. Denies any neurological symptoms. Patient laying comfortably in the bed. Objective - Vital Signs Vital signs: Vital Signs Temp 97.8 F 07/11/22 08:00 Pulse 58 L 07/11/22 08:00 Resp 18 07/11/22 08:00 BP 127/62 07/11/22 08:00 Pulse Ox 97 07/11/22 08:00 FiO2 Intake & Output 07/10/22 07/11/22 07/11/22 18:59 06:59 18:59 Intake Total 180 480 Balance 180 480 Weight 84.822 kg Intake: Oral 180 480 Other: Voiding Method Toilet Toilet # Voids 1 - Exam Patient is alert and awake, in no distress. Mental status, speech and language functions are normal. On muscle strength is no drift and the strength is normal in arms and legs. Sensation slightly decreased to touch in the right arm. Sensations equal in the face and the lower limbs. - Labs CBC & Chem 7: 07/09/22 12:36 07/09/22 12:36 Labs: Abnormal Lab Results - Last 24 Hours (Table) 07/09/22 07/10/22 07/10/22 Range/Units 12:36 12:18 20:10 POC Glucose (mg/dL) 167 H 166 H (70-110) mg/dL Hemoglobin A1c 8.0 H (0.0-6.0) % 07/11/22 Range/Units 06:02 POC Glucose (mg/dL) 114 H (70-110) mg/dL Hemoglobin A1c (0.0-6.0) % Assessment and Plan Assessment: * Possible stroke/TIA manifesting with blurred vision, diplopia, speech difficulty and right-sided paresthesias. Her symptoms have improved, but not resolved yet. * Syncopal spell, unclear cause. * History of aortic stenosis, status post transcatheter aortic valve repair. * History of multiple strokes TIAs in the past (claims x7 in the past). * Diabetes * Hyperlipidemia * Hypertension * Neuropathy in the legs. * Obstructive sleep apnea. Plan: * MRI of the brain rule out CVA pending clearance for loop recorder. * Cardiology consult. * EEG was normal during wakefulness, drowsiness and brief stage II sleep. No focal, lateralized or epileptiform activity was seen. * Patient on Eliquis 5 mg twice a day and Plavix, compliant with the medication. Suggest keeping on one antiplatelet medication (currently on aspirin, Plavix, in addition to Eliquis). Patient now complaining of significant heartburn. We will stop aspirin. Started Pepcid 20 mg twice a day. Patient also on Protonix for gastric ulcer prophylaxis. * Consider tilt table test for recurrent syncopal spells. Await cardiology consult. Previously syncopal spells were felt to be related to aortic stenosis, which now has been repaired. * Patient's last 2-D echo from 04/03/2022 showed transcatheter valve was identified. No evidence of pericardial effusion. EF is 55-60%. Left atrial size is normal. * B12 491, folate 15.0, B6, MMA. Hemoglobin A1c 8.0. Optimize control of diabetes to target A1c < 7.0. * Lipid panel cholesterol 182, LDL 107, HDL 43 and triglycerides 158. We will increase Lipitor to 80 mg daily to target LDL <70. Patient was on Lipitor 40 mg. * Continue telemetry monitoring. * Discussed with primary team.
[2022-07-12] MEDS: INSULIN NPH 300 UNIT/3 ML VIAL SQ SCH (09:20)
[2022-07-12 09:30] VITALS: TEMP 98.1
[2022-07-12] MEDS: ALBUTEROL HFA INHALER INHALATION PRN (11:37)
[2022-07-12 11:57] LABS: Glucose,Whole Blood 216 mg/dL (70-110)
[2022-07-12 11:59] VITALS: BP 107/63; PULSE 60; RESP 16
--- NOTE | 2022-07-13 00:31 | P.PN ---
Subjective Progress Note Date: 07/12/22 Patient was seen for a follow-up. Patient states she is feeling better. Patient admitting of having minimal headache /. Patient denies any history of migraines. Patient feels her speech is back to baseline. Still slight visual disturbance peripherally in the right eye. Patient complaining of prom inent bilateral inguinal lymph nodes. It is larger on the left as compared to right. Objective - Vital Signs Vital signs: Vital Signs Temp 98.1 F 07/12/22 09:00 Pulse 73 07/12/22 09:00 Resp 18 07/12/22 09:00 BP 116/66 07/12/22 09:00 Pulse Ox 98 07/12/22 09:00 FiO2 Intake & Output 07/11/22 07/12/22 07/12/22 18:59 06:59 18:59 Intake Total 476 478 Balance 476 478 Intake: Oral 476 478 Other: Voiding Method Toilet Toilet # Voids 3 1 - Exam Patient is alert and awake, in no distress. Mental status, speech and language functions are normal. On muscle strength testing, there is is no drift and the strength is normal in arms and legs. Sensation slightly decreased to touch in the right arm. Sensations equal in the face and the lower limbs. Patient does have enlarged bilateral inguinal lymph nodes, left greater than right. Discussed with Dr. Houston. Internal medicine to address prominent lymph nodes. - Labs CBC & Chem 7: 07/09/22 12:36 07/09/22 12:36 Labs: Abnormal Lab Results - Last 24 Hours (Table) 07/11/22 07/11/22 07/11/22 Range/Units 11:48 16:53 19:43 POC Glucose (mg/dL) 228 H 148 H 165 H (70-110) mg/dL Assessment and Plan Assessment: * Possible stroke/TIA manifesting with blurred vision, diplopia, speech difficulty and right-sided paresthesias. Her symptoms have improved, but not resolved yet. MRI of the brain however negative for any acute stroke. * Syncopal spell, unclear cause. * History of aortic stenosis, status post transcatheter aortic valve repair. * History of multiple strokes TIAs in the past (claims x7 in the past). * Diabetes * Hyperlipidemia * Hypertension * Neuropathy in the legs. * Obstructive sleep apnea. Plan: * MRI of the brain revealed no acute abnormality. Age-related changes of atrophy and chronic small vessel ischemia. Mild sinus disease. I personally reviewed MRI, I agree with the findings. * EEG was normal during wakefulness, drowsiness and brief stage II sleep. No focal, lateralized or epileptiform activity was seen. * Patient on Eliquis 5 mg twice a day and Plavix, compliant with the medication. * Orthostatics checked today, and were negative. Supine blood pressure 107/63, pulse rate 60. Sitting 118/67 and pulse rate 66, standing blood pressure 146/65, pulse rate 77. * Patient's last 2-D echo from 04/03/2022 showed transcatheter valve was identified. No evidence of pericardial effusion. EF is 55-60%. Left atrial size is normal. * B12 491, folate 15.0, B6, MMA. Hemoglobin A1c 8.0. Optimize control of diabetes to target A1c < 7.0. * Lipid panel cholesterol 182, LDL 107, HDL 43 and triglycerides 158. We will increase Lipitor to 80 mg daily to target LDL <70. Patient was on Lipitor 40 mg. * Patient has prominent inguinal lymph nodes bilaterally, left more than right. Discussed with Dr. Houston. Patient to follow up with her primary physician as well. * Neurologically clear for discharge.
--- NOTE | 2022-07-13 02:50 | DS ---
DISCHARGE SUMMARY FINAL DIAGNOSES: 1. Acute transient ischemic attack with right-sided weakness and dizziness. 2. Diabetes mellitus, type 2. 3. History of aortic stenosis and transcatheter aortic valve replacement. 4. Hypertension. 5. Multiple medical issues. DISCHARGE DISPOSITION: The patient is discharged in stable condition, guarded prognosis. HISTORY OF PRESENT ILLNESS: This 72-year-old woman was admitted with right-sided weakness but evaluation showed no acute changes. The patient was monitored closely. Neurology saw the patient. The patient improved significantly. Dr. Meek recommend the patient to be followed in outpatient setting. Otherwise, there were no orthostatic changes. PHYSICAL EXAMINATION: VITAL SIGNS: On exam, vitals stable. CARDIOVASCULAR: S1, S2 muffled. ABDOMEN: Soft. NERVOUS SYSTEM: Mild diffuse weakness. The patient will be discharged in a stable and guarded prognosis. Please refer to the discharge reconciliation sheet for further evaluation. I would recommend to continue antiplatelet agents and Eliquis, Plavix 75 mg p.o. daily and Eliquis 5 mg p.o. b.i.d. Follow up with Dr. Pepe Holguin in the outpatient setting. MMODL / IJN: [id number] /
== END 2022-07-12 16:45 | disposition home or self-care (01) | DRG 69 ==
LOC: EC 12:09 → 3SCARD 13:48
PROVIDERS: ADMIT Internal Medicine; ATTEND Internal Medicine
DX: G45.9 Transient cerebral ischemic attack, unspecified (principal); G81.91 Hemiplegia, unspecified affecting right dominant side; E11.42 Type 2 diabetes mellitus with diabetic polyneuropathy; G25.81 Restless legs syndrome; E66.9 Obesity, unspecified; I10 Essential (primary) hypertension; F32.A Depression, unspecified; H53.2 Diplopia; Z68.30 Body mass index [BMI] 30.0-30.9, adult; E78.5 Hyperlipidemia, unspecified; M19.90 Unspecified osteoarthritis, unspecified site; R27.0 Ataxia, unspecified; S80.12XA Contusion of left lower leg, initial encounter; H53.40 Unspecified visual field defects; G47.33 Obstructive sleep apnea (adult) (pediatric); R12 Heartburn; H53.8 Other visual disturbances; R20.2 Paresthesia of skin; W19.XXXA Unspecified fall, initial encounter; R47.81 Slurred speech; M21.372 Foot drop, left foot; Z96.642 Presence of left artificial hip joint; Z79.02 Long term (current) use of antithrombotics/antiplatelets; Z79.899 Other long term (current) drug therapy; Z79.4 Long term (current) use of insulin; Z79.01 Long term (current) use of anticoagulants; Z79.84 Long term (current) use of oral hypoglycemic drugs; Z88.5 Allergy status to narcotic agent; Z91.040 Latex allergy status; Z88.0 Allergy status to penicillin; Z88.2 Allergy status to sulfonamides; Z90.710 Acquired absence of both cervix and uterus; Z98.41 Cataract extraction status, right eye; Z98.42 Cataract extraction status, left eye; Z95.818 Presence of other cardiac implants and grafts; Z95.3 Presence of xenogenic heart valve; Z87.891 Personal history of nicotine dependence; Z80.9 Family history of malignant neoplasm, unspecified; Z83.3 Family history of diabetes mellitus; Z82.49 Family history of ischemic heart disease and other diseases of the circulatory system; Z82.3 Family history of stroke; Z92.21 Personal history of antineoplastic chemotherapy; Z92.3 Personal history of irradiation; Z85.038 Personal history of other malignant neoplasm of large intestine; Z85.41 Personal history of malignant neoplasm of cervix uteri; Z91.030 Bee allergy status; Z88.1 Allergy status to other antibiotic agents; Z85.9 Personal history of malignant neoplasm, unspecified
CPT/HCPCS: 36415; 70450; 70496; 70498; 70551; 71046; 80053; 80061; 82607; 82746; 83036; 83921; 84207; 84484; 85025; 85610; 85730; 93005; 94640; 94760; 95816; 99291

== ENCOUNTER 2022-08-15 22:19 | Observation (INO) | payer MEDICARE ==
[2022-08-15] MEDS ORDERED: SODIUM CHLORIDE 0.9% 1,000 ML IV STA (22:28)
--- NOTE | 2022-08-15 22:29 | ED ---
Syncope HPI - General Stated Complaint: Syncope Time Seen by Provider: 08/15/22 22:28 Source: RN notes reviewed, old records reviewed Limitations: no limitations - History of Present Illness Initial Comments: 72-year-old female to the emergency department for evaluation. Patient has a long complex medical history. Patient recently suffered a CVA and is currently doing PTOT. Continue PTOT today patient became lightheaded dizzy has syncopal and a fall he did hit her head and without any other injury noted. MD Complaint: loss of consciousness, felt faint, collapsed -: hour(s) Prodromal Symptoms: lightheaded, palpitations, diaphoresis, nausea/vomiting -: second(s) Witnessed: yes - by bystander Injuries Sustained Associated with Event: None Current Symptoms: lightheaded, weakness History: previous syncopal episode Context: at rest Treatments Prior to Arrival: none - Related Data On Hormonal Control: No Home Medications Medication Instructions Recorded Confirmed Albuterol Inhaler [Ventolin Hfa 2 puff INHALATION RT-QID PRN 10/17/21 08/16/22 Inhaler] Multivit-Min/Iron/Folic/Lutein 1 tab PO BID 10/17/21 08/16/22 [Centrum Silver Women Tablet] Sertraline [Zoloft] 50 mg PO DAILY 10/18/21 08/16/22 Insulin NPH Human Isophane 30 units SQ DAILY 01/16/22 08/16/22 [NovoLIN N] Pramipexole Di-HCl [Mirapex] 0.125 mg PO HS 01/17/22 08/16/22 Baclofen 10 mg PO HS 02/06/22 08/16/22 Fluticasone Nasal [place] [Flonase 2 spray EA NOSTRIL DAILY PRN 02/06/22 08/16/22 Nasal [place]] Nitroglycerin Sl Tabs [Nitrostat] 0.4 mg SUBLINGUAL Q5M PRN 02/06/22 08/16/22 Insulin NPH Human Isophane 35 units SQ HS 03/31/22 08/16/22 [NovoLIN N] Previous Rx's Medication Instructions Recorded Apixaban [Eliquis] 5 mg PO BID #60 tab 10/21/21 Atorvastatin [Lipitor] 40 mg PO HS #30 tablet 10/21/21 Acetaminophen Tab [Tylenol] 650 mg PO Q6HR PRN tab 01/21/22 Clopidogrel [Plavix] 75 mg PO DAILY #30 tab 04/03/22 metFORMIN HCL [Glucophage] 1,000 mg PO BID #0 04/03/22 Famotidine [Pepcid] 20 mg PO DAILY #30 tab 07/12/22 Mag Hydrox/Al Hydrox/Simeth 30 ml PO Q4HR PRN ml 07/12/22 [Maalox] Pantoprazole [Protonix] 40 mg PO AC-BID 15 Days #30 tab 07/12/22 amLODIPine [Norvasc] 5 mg PO DAILY tab 08/17/22 Allergies Allergy/AdvReac Type Severity Reaction Status Date / Time bee venom protein (honey bee) Allergy Anaphylaxis Verified 08/16/22 13:02 cephalexin [From Keflex] Allergy Rash/Hives Verified 08/16/22 13:02 codeine Allergy rash, Verified 08/16/22 13:02 swelling latex Allergy Rash/Hives Verified 08/16/22 13:02 Penicillins Allergy Swelling Verified 08/16/22 13:02 Sulfa (Sulfonamide Allergy Unknown Verified 08/16/22 13:02 Antibiotics) Review of Systems ROS Statement: Those systems with pertinent positive or pertinent negative responses have been documented in the HPI. ROS Other: All systems not noted in ROS Statement are negative. Past Medical History Past Medical History: Cancer, CVA/TIA, Diabetes Mellitus, GERD/Reflux, Hyperlipidemia, Hypertension, Osteoarthritis (OA), Sleep Apnea/CPAP/BIPAP Additional Past Medical History / Comment(s): states 7 strokes, states left foot drop, and wears an AFO, hx of cervical CA, and colon CA 2002, had chemo and radiation, restless leg, neuropathy tr legs, states has had weight loss, at one time weighed 545lbs, uses CPAP History of Any Multi-Drug Resistant Organisms: None Reported Past Surgical History: Bowel Resection, Heart Catheterization, Heart Catheterization With Stent, Hernia Repair, Hysterectomy, Joint Replacement, Pac emaker Additional Past Surgical History / Comment(s): hx of colostomy, and then reversal, tr cataract sx, left hip replaced, states had 5 hernia repairs with mesh, loop recorder, recent heart cath., panniculectomy, recent aortogram, aorta valve replacemnet 04/02/22 Past Anesthesia/Blood Transfusion Reactions: No Reported Reaction Date of Last Stent Placement:: 2013 Type of Cardiac Device: Loop Device Placement Date:: 12/23/20 Past Psychological History: Depression Smoking Status: Former smoker Past Alcohol Use History: None Reported Past Drug Use History: None Reported - Past Family History Brother(s) Family Medical History: Cancer Sister(s) History Unknown: Yes Daughter(s) History Unknown: Yes Son(s) Family Medical History: No Reported History Father Family Medical History: Cancer, Coronary Artery Disease (CAD), Diabetes Mellitus Mother Family Medical History: Coronary Artery Disease (CAD), CVA/TIA, Diabetes Mellitus General Exam General appearance: alert, in no apparent distress Head exam: Present: atraumatic, normocephalic, normal inspection Eye exam: Present: normal appearance, PERRL, EOMI. Absent: scleral icterus, conjunctival injection, periorbital swelling ENT exam: Present: normal exam, mucous membranes moist Neck exam: Present: normal inspection. Absent: tenderness, meningismus, lymphadenopathy Respiratory exam: Present: normal lung sounds bilaterally. Absent: respiratory distress, wheezes, rales, rhonchi, stridor Cardiovascular Exam: Present: regular rate, normal rhythm, normal heart sounds. Absent: systolic murmur, diastolic murmur, rubs, gallop, clicks GI/Abdominal exam: Present: soft, normal bowel sounds. Absent: distended, tenderness, guarding, rebound, rigid Extremities exam: Present: normal inspection, full ROM, normal capillary refill. Absent: tenderness, pedal edema, joint swelling, calf tenderness Back exam: Present: normal inspection Neurological exam: Present: alert, oriented X3, CN II-XII intact Psychiatric exam: Present: normal affect, normal mood Skin exam: Present: warm, dry, intact, normal color. Absent: rash Course Vital Signs 08/15/22 22:35 Temperature 98.1 F Pulse Rate 61 Respiratory 18 Rate Blood Pressure 109/52 O2 Sat by Pulse 96 Oximetry - Reevaluation(s) Reevaluation #1: 08/15/22 medical record is reviewed patient symptoms improved here in the ER patient informed of results and questions answered EKG Findings - EKG Comments: EKG Findings:: EKG is sinus rhythm 63. NM 155 QRS 112 QTC 420 Medical Decision Making - Medical Decision Making 72-year-old female to the emergency department for fall. Fall occurred after a syncopal event. Patient was placed in the hospital for evaluation regarding syncope - Lab Data Result diagrams: 08/17/22 06:12 08/17/22 06:12 Lab Results 08/15/22 08/15/22 08/15/22 Range/Units 22:27 22:27 22:27 WBC 7.9 (3.8-10.6) k/uL RBC 3.91 (3.80-5.40) m/uL Hgb 12.8 D (11.4-16.0) gm/dL Hct 37.5 (34.0-46.0) % MCV 96.0 (80.0-100.0) fL MCH 32.8 (25.0-35.0) pg MCHC 34.2 (31.0-37.0) g/dL RDW 13.6 (11.5-15.5) % Plt Count 140 L (150-450) k/uL MPV 9.7 Neutrophils % 58 % Lymphocytes % 32 % Monocytes % 5 % Eosinophils % 2 % Basophils % 1 % Neutrophils # 4.6 (1.3-7.7) k/uL Lymphocytes # 2.5 (1.0-4.8) k/uL Monocytes # 0.4 (0-1.0) k/uL Eosinophils # 0.2 (0-0.7) k/uL Basophils # 0.1 (0-0.2) k/uL PT 10.5 (9.0-12.0) sec INR 1.0 (<1.2) APTT 23.1 (22.0-30.0) sec D-Dimer 0.47 (<0.60) mg/L FEU Sodium 136 L (137-145) mmol/L Potassium 3.8 (3.5-5.1) mmol/L Chloride 102 (98-107) mmol/L Carbon Dioxide 24 (22-30) mmol/L Anion Gap 10 mmol/L BUN 30 H (7-17) mg/dL Creatinine 0.83 (0.52-1.04) mg/dL Est GFR (CKD-EPI)AfAm 83 (>60 ml/min/1.73 sqM) Est GFR (CKD-EPI)NonAf 72 (>60 ml/min/1.73 sqM) Glucose 211 H (74-99) mg/dL POC Glucose (mg/dL) (70-110) mg/dL POC Glu [place] ID Calcium 9.0 (8.4-10.2) mg/dL Phosphorus 4.1 (2.5-4.5) mg/dL Magnesium 1.4 L (1.6-2.3) mg/dL Total Bilirubin 0.5 (0.2-1.3) mg/dL AST 21 (14-36) U/L ALT 16 (4-34) U/L Alkaline Phosphatase 104 (38-126) U/L Troponin I (0.000-0.034) ng/mL NT-Pro-B Natriuret Pep pg/mL Total Protein 6.0 L (6.3-8.2) g/dL Albumin 3.6 (3.5-5.0) g/dL 08/15/22 08/15/22 08/15/22 Range/Units 22:27 22:27 22:41 WBC (3.8-10.6) k/uL RBC (3.80-5.40) m/uL Hgb (11.4-16.0) gm/dL Hct (34.0-46.0) % MCV (80.0-100.0) fL MCH (25.0-35.0) pg MCHC (31.0-37.0) g/dL RDW (11.5-15.5) % Plt Count (150-450) k/uL MPV Neutrophils % % Lymphocytes % % Monocytes % % Eosinophils % % Basophils % % Neutrophils # (1.3-7.7) k/uL Lymphocytes # (1.0-4.8) k/uL Monocytes # (0-1.0) k/uL Eosinophils # (0-0.7) k/uL Basophils # (0-0.2) k/uL PT (9.0-12.0) sec INR (<1.2) APTT (22.0-30.0) sec D-Dimer (<0.60) mg/L FEU Sodium (137-145) mmol/L Potassium (3.5-5.1) mmol/L Chloride (98-107) mmol/L Carbon Dioxide (22-30) mmol/L Anion Gap mmol/L BUN (7-17) mg/dL Creatinine (0.52-1.04) mg/dL Est GFR (CKD-EPI)AfAm (>60 ml/min/1.73 sqM) Est GFR (CKD-EPI)NonAf (>60 ml/min/1.73 sqM) Glucose (74-99) mg/dL POC Glucose (mg/dL) 197 H (70-110) mg/dL POC Glu [place] ID Yulia Mckeon Calcium (8.4-10.2) mg/dL Phosphorus (2.5-4.5) mg/dL Magnesium (1.6-2.3) mg/dL Total Bilirubin (0.2-1.3) mg/dL AST (14-36) U/L ALT (4-34) U/L Alkaline Phosphatase (38-126) U/L Troponin I <0.012 (0.000-0.034) ng/mL NT-Pro-B Natriuret Pep 164 pg/mL Total Protein (6.3-8.2) g/dL Albumin (3.5-5.0) g/dL - Radiology Data Radiology results: report reviewed (CT brain C-spine chest x-ray is negative for acute disease), image reviewed Disposition Clinical Impression: Syncope, Fall, Weakness Disposition: ADMITTED IP TO THIS HOSP Condition: Fair Is patient prescribed a controlled substance at d/c from ED?: No
[2022-08-15 22:43] LABS: Glucose,Whole Blood 197 mg/dL (70-110)
[2022-08-15 23:01] LABS: Basophils # (A) 0.1 k/uL (0-0.2); Basophils % (A) 1 %; Eosinophils # (A) 0.2 k/uL (0-0.7); Eosinophils % (A) 2 %; HCT 37.5 % (34.0-46.0); Lymphocytes # (A) 2.5 k/uL (1.0-4.8); Lymphocytes % (A) 32 %; MCH 32.8 pg (25.0-35.0); MCHC 34.2 g/dL (31.0-37.0); Mean Platelet Volume 9.7; Monocytes # (A) 0.4 k/uL (0-1.0); Monocytes % (A) 5 %; Neutrophils # (A) 4.6 k/uL (1.3-7.7); Neutrophils % (A) 58 %; Platelet Count 140 k/uL (150-450); RBC 3.91 m/uL (3.80-5.40); RDW 13.6 % (11.5-15.5); WBC 7.9 k/uL (3.8-10.6)
[2022-08-15 23:04] LABS: HGB 12.8 gm/dL (11.4-16.0)
[2022-08-15 23:07] LABS: Albumin 3.6 g/dL (3.5-5.0); Magnesium 1.4 mg/dL (1.6-2.3); Phosphorus 4.1 mg/dL (2.5-4.5); Potassium 3.8 mmol/L (3.5-5.1); Total Bilirubin 0.5 mg/dL (0.2-1.3)
[2022-08-15 23:19] LABS: Partial Thromboplastin Time 23.1 sec (22.0-30.0); Prothrombin Time 10.5 sec (9.0-12.0)
--- NOTE | 2022-08-15 23:56 | CT ---
EXAMINATION TYPE: CT brain cspine wo con DATE OF EXAM: 08/15/2022 COMPARISON: CT brain 07/09/2022 HISTORY: fall CT DLP: 1424.1 mGycm Automated exposure control for dose reduction was used. Images of the brain and cervical spine obtained with no contrast. Ventricles have normal size. There is no mass effect or midline shift. No sign of intracranial hemorr deepali. No evidence of cerebral edema. Calvarium is intact. There is normal aeration of the mastoid sin uses. Cervical vertebra have normal alignment. There is mild degenerative spurring of the endplates at C5-6 and C6-7. Posterior element are intact. Facet joints are intact. No subluxation. The skull base is i ntact. There is normal aeration of the mastoid sinuses. The occipital bone is intact. 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 No fracture. Negative CT scan of the brain. Brain is not changed compared to old exam.
[2022-08-16] MEDS ORDERED: ONDANSETRON 4 MG/2 ML VIAL IVP PRN (00:12)
[2022-08-16] MEDS ORDERED: MORPHINE SULFATE 4 MG/ML SYRINGE IV PRN (00:12)
[2022-08-16] MEDS ORDERED: NALOXONE 0.4 MG/ML 1 ML VIAL IV PRN (00:12)
[2022-08-16] MEDS: SODIUM CHLORIDE 0.9% 1,000 ML IV SCH ×2 (02:19→08:43)
[2022-08-16 07:13] LABS: Glucose,Whole Blood 137 mg/dL (70-110)
--- NOTE | 2022-08-16 11:28 | P.CNNES ---
History of Present Illness Consult date: 08/16/22 Requesting physician: Salomon Holguin Reason for Consult: syncope History of Present Illness: This is a 72-year-old woman history of severe aortic stenosis status post valve repair, syncopal episodes, reported multiple TIAs, diabetes, hypertension, hyperlipidemia, peripheral neuropathy, obstructive sleep apnea who presented to the emergency department because a syncopal episode. Patient stated that she was at home and last night she went from her living room to her kitchen and she walked at 10 steps and that while she was in the kitchen standing she was counted her pills she felt dizzy and then she passed out. Unsure duration but she stated that the her son was there and he witnessed the episode and she denied any jerk in of any extremities reported by her son, no urinary or bowel incontinence, no tongue bite. She stated that she had a similar episode in the past. She denies any history of seizures. She denies of any focal weakness or numbness or difficulty getting her words out. She does noticed pain over the right side of the body as well as the mildly over the right side of the head where she her head. He continues to take Eliquis and Plavix. Of note upon reviewing medical records she was seen by Dr. Srivastava (Neuro- Hospitalist) in our facility towards the end of June 2022 and he felt possibly the patient has possible TIA Donna will blurry vision, diplopia speech difficulty right-sided there is seizure. And the MRI of the brain was negative. Regarding her syncopal episode he stated that it's unclear. He did an EEG which was normal as reported. She also had an an EEG in 2020 also reported as normal. She had orthostatic vitals which were negative. Patient was discharged on Eliquis 5 mg 1 tablet twice a day and Plavix. Some of the workup during this hospital visit consisted of: Initial vital signs is blood pressure of 109/52, heart rate of 61, respiratory of 18, temperature of 98.1 Fahrenheit oral and pulse ox of 96% on room air on 2 L of nasal cannula. White blood cell is within normal limits. Glucose is 211, calcium phosphorus is within normal limits. Magnesium is 1.4 CT of the head is reported as negative CT scan of the brain. Brain is unchanged compared to old exam. I personally reviewed the CT and agree report CT of cervical spine is reported as spondylitic changes in the lower cervical spine. No fracture. EKG is reported as sinus rhythm. Moderate intraventricular conduction delay. Borderline EKG. Review of Systems Review of system: The 12 point system was reviewed and apparent positive and negative per HPI. Past Medical History Past Medical History: Cancer, CVA/TIA, Diabetes Mellitus, GERD/Reflux, Hyperlipidemia, Hypertension, Osteoarthritis (OA), Sleep Apnea/CPAP/BIPAP Additional Past Medical History / Comment(s): states 7 strokes, states left foot drop, and wears an AFO, hx of cervical CA, and colon CA 2002, had chemo and radiation, restless leg, neuropathy tr legs, states has had weight loss, at one time weighed 545lbs, uses CPAP History of Any Multi-Drug Resistant Organisms: None Reported Past Surgical History: Bowel Resection, Heart Catheterization, Heart Catheterization With Stent, Hernia Repair, Hysterectomy, Joint Replacement, Pacemaker Additional Past Surgical History / Comment(s): hx of colostomy, and then reversal, tr cataract sx, left hip replaced, states had 5 hernia repairs with mesh, loop recorder, recent heart cath., panniculectomy, recent aortogram, aorta valve replacemnet 04/02/22 Past Anesthesia/Blood Transfusion Reactions: No Reported Reaction Date of Last Stent Placement:: 2013 Type of Cardiac Device: Loop Device Placement Date:: 12/23/20 Past Psychological History: Depression Smoking Status: Former smoker Past Alcohol Use History: None Reported Additional Past Alcohol Use History / Comment(s): smokes 1ppd, has smoked up to 3ppd in past, quit smoking 1-2 months ago Past Drug Use History: None Reported Additional Drug Use History / Comment(s): occasional use - Past Family History Brother(s) Family Medical History: Cancer Sister(s) History Unknown: Yes Daughter(s) History Unknown: Yes Son(s) Family Medical History: No Reported History Father Family Medical History: Cancer, Coronary Artery Disease (CAD), Diabetes Mellitus Mother Family Medical History: Coronary Artery Disease (CAD), CVA/TIA, Diabetes Mellitus Medications and Allergies Home Medications Medication Instructions Recorded Confirmed Type Albuterol Inhaler [Ventolin Hfa 2 puff INHALATION RT-QID PRN 10/17/21 07/09/22 History Inhaler] Multivit-Min/Iron/Folic/Lutein 1 tab PO BID 10/17/21 07/09/22 History [Centrum Silver Women Tablet] Sertraline [Zoloft] 50 mg PO DAILY 10/18/21 07/09/22 History Apixaban [Eliquis] 5 mg PO BID #60 tab 10/21/21 07/09/22 Rx Atorvastatin [Lipitor] 40 mg PO HS #30 tablet 10/21/21 07/09/22 Rx Insulin NPH Human Isophane 30 units SQ QAM 01/16/22 07/09/22 History [NovoLIN N] Pramipexole Di-HCl [Mirapex] 0.125 mg PO HS 01/17/22 07/09/22 History Acetaminophen Tab [Tylenol] 650 mg PO Q6HR PRN tab 01/21/22 07/09/22 Rx Baclofen 10 mg PO HS 02/06/22 07/09/22 History Fluticasone Nasal [place] [Flonase 2 spray EA NOSTRIL DAILY PRN 02/06/22 07/09/22 History Nasal [place]] Nitroglycerin Sl Tabs [Nitrostat] 0.4 mg SUBLINGUAL Q5M PRN 02/06/22 07/09/22 History amLODIPine [Norvasc] 10 mg PO DAILY 02/06/22 07/09/22 History Insulin NPH Human Isophane 35 units SQ HS 03/31/22 07/09/22 History [NovoLIN N] Clopidogrel [Plavix] 75 mg PO DAILY #30 tab 04/03/22 07/09/22 Rx metFORMIN HCL [Glucophage] 1,000 mg PO BID #0 04/03/22 07/09/22 Rx Famotidine [Pepcid] 20 mg PO DAILY #30 tab 07/12/22 Rx Mag Hydrox/Al Hydrox/Simeth 30 ml PO Q4HR PRN ml 07/12/22 Rx [Maalox] Pantoprazole [Protonix] 40 mg PO AC-BID 15 Days #30 tab 07/12/22 Rx Allergies Allergy/AdvReac Type Severity Reaction Status Date / Time bee venom protein (honey bee) Allergy Anaphylaxis Verified 07/09/22 14:09 cephalexin [From Keflex] Allergy Rash/Hives Verified 07/09/22 14:09 codeine Allergy rash, Verified 07/09/22 14:09 swelling latex Allergy Rash/Hives Verified 07/09/22 14:09 Penicillins Allergy Swelling Verified 07/09/22 14:09 Sulfa (Sulfonamide Allergy Unknown Verified 07/09/22 14:09 Antibiotics) Physical Examination - Vital Signs Vital Signs: Vital Signs Temp Pulse Pulse Resp BP BP Pulse Ox 08/16/22 08:00 72 18 08/16/22 07:00 98.1 F 72 18 128/64 90 L 08/16/22 00:56 97.6 F 65 19 128/70 92 L 08/15/22 22:35 98.1 F 61 18 109/52 96 Intake and Output 08/15/22 08/16/22 08/16/22 22:59 06:59 14:59 Intake Total 300 Output Total 800 Balance -500 Intake: Oral 300 Output: Urine 800 Other: Voiding Method External Catheter External Catheter # Voids 1 Weight 90.5 kg 90.5 kg GENERAL: The patient is lying in bed and is not in acute distress. CHEST: The heart rate is regular rate rhythm. +ve murmur noted. LUNG: Clear to auscultation bilaterally no wheezing noted throughout. Not labored breathing. ABDOMEN/GI: Bowel sounds present in all 4 quadrants. No tenderness to palpation throughout. NEUROLOGICAL: Higher mental function: The patient is awake, alert, oriented to self, place and time. Patient is following commands. No aphasia and no neglect. Cranial nerves: The pupils are round, equal and reactive to light and accommodation. Visual whitehead are full to confrontation throughout. Extraocular movement is intact no nystagmus is noted. Facial sensation is normal to touch throughout. The facial strength is normal throughout. Hearing is normal bilaterally to hand rub. Tongue is midline and moved [id number] without any difficulty. No dysarthria is noted. Shoulder shrug is normal bilaterally. Motor: The strength is limited over the right lower because of pain and has antigravity. Otherwise 5 over 5 throughout. Normal tone and bulk. Cerebellum: Normal finger to nose bilaterally. Sensation: Sensation is normal to touch throughout. Reflexes (right/left): 1+ throughout. Plantars are mute bilaterally. Results - Laboratory Findings CBC and BMP: 08/15/22 22:27 08/15/22 22:27 Abnormal Lab Findings: Abnormal Labs 08/15/22 08/15/22 08/15/22 22:27 22:27 22:41 Plt Count 140 L Sodium 136 L BUN 30 H Glucose 211 H POC Glucose (mg/dL) 197 H Magnesium 1.4 L Total Protein 6.0 L 08/16/22 07:12 Plt Count Sodium BUN Glucose POC Glucose (mg/dL) 137 H Magnesium Total Protein Assessment and Plan Assessment: Recurrent Syncopal episode of unknown etiology but does not appear to be seizures. Rule out cardiac in nature especially with a history of severe aortic valve stenosis. Patient had 2 normal routine EEGs and had an normal MRI of the brain end of 06/2022. History of severe aortic stenosis status post valve repair in CT of syncopal episodes of unknown etiology Reported the multiple TIAs in the past Diabetes mellitus and the last hemoglobin A1c was 8.0 Hypertension Hyperlipidemia History of peripheral neuropathy History of obstructive sleep apnea Plan: I ordered orthostatic vitals Ordered two and half hour ambulatory EEG as an outpatient and this will be coordinated by the sewer and drain technician. Seizure suspicion is unlikely. Cardiology team is consulted I consulted PT and OT for gait training We'll defer the rest of the medical management to the primary team The plan is discussed with the patient and her nurse. Thank you for the consultation. Ish Kirkpatrick M.D. Neuro-Hospitalist Time with Patient: Greater than 30
--- NOTE | 2022-08-16 11:45 | XR ---
EXAMINATION TYPE: XR chest 2V DATE OF EXAM: 08/16/2022 10:42 AM COMPARISON: Chest radiographs from 07/09/2022. TECHNIQUE: XR chest 2V Frontal and lateral views of the chest. CLINICAL INDICATION:Female, 72 years old with history of hypoxia; FINDINGS: Lungs/Pleura: There is no evidence of pleural effusion, focal consolidation, or pneumothorax. Pulmonary vascularity: Unremarkable. Heart/mediastinum: Cardiomediastinal silhouette is prominent in size. Post aortic valve repair indira lr. A loop recorder projects over the left thorax over the heart. Musculoskeletal: No acute osseous pathology. IMPRESSION: No acute cardiopulmonary disease/process.
[2022-08-16 12:17] LABS: Glucose,Whole Blood 149 mg/dL (70-110)
[2022-08-16] MEDS ORDERED: SODIUM CHLORIDE 0.9% 1,000 ML IV SCH (13:00)
[2022-08-16] MEDS ORDERED: MAG HYDROX/AL HYDROX/SIMETH 30 ML CUP PO PRN (13:40)
[2022-08-16] MEDS ORDERED: FLUTICASONE 50MCG/SPRAY NASAL 16GM EA NOSTRIL PRN (13:40)
[2022-08-16 17:10] LABS: Glucose,Whole Blood 150 mg/dL (70-110)
[2022-08-16] MEDS: ACETAMINOPHEN TAB 325 MG TAB PO PRN (17:25)
[2022-08-16] MEDS: PANTOPRAZOLE 40 MG TABLET PO SCH (17:26)
[2022-08-16] MEDS: ALBUTEROL NEBULIZED 2.5 MG/3 ML INHALATION PRN (20:38)
[2022-08-16] MEDS: metFORMIN 500 MG TAB PO SCH (20:41)
[2022-08-16] MEDS: APIXABAN 5 MG TAB PO SCH (20:41)
[2022-08-16] MEDS: MULTIVITAMINS, THERA 1 EACH TAB PO SCH (20:41)
[2022-08-16] MEDS ORDERED: BACLOFEN 10 MG TAB PO SCH (21:00)
[2022-08-16] MEDS ORDERED: INSULIN NPH 100 UNIT/ML 10 ML VIAL SQ SCH (21:00)
[2022-08-16] MEDS ORDERED: ATORVASTATIN 40 MG TAB PO SCH (21:00)
[2022-08-16] MEDS ORDERED: PRAMIPEXOLE 0.125 MG TAB PO SCH (21:00)
[2022-08-16 21:58] LABS: Glucose,Whole Blood 145 mg/dL (70-110)
--- NOTE | 2022-08-16 22:22 | CONS ---
CONSULTATION CHIEF COMPLAINT: Syncope. HISTORY OF PRESENT ILLNESS: Lanny is a 72-year-old lady with history of aortic stenosis, status post aortic valve replacement, hypertension, diabetes, dyslipidemia who presents to hospital having had an episode of syncope at home. The patient states that she was at home, she was in her living room trying to take her pills, felt dizzy and then she has passed out. There is no bladder or bowel incontinence, no seizure disorder, no focal neurological deficits. She has had similar episodes in the past and has had EEG done that was negative. An MRI of the brain was negative. She had an echocardiogram in March that revealed normally functioning prosthetic valve with normal LV function. On this admission, the CT scan of the brain is negative, EKG shows sinus rhythm with nonspecific intraventricular conduction delay. Cardiac enzymes have been negative. Hemoglobin is normal at 12.8, electrolytes showed that the potassium is 3.8, BUN is 30, creatinine is 0.8. BNP is normal at 164. The exact etiology for the patient's syncope is unclear. She does not have orthostatic changes. She is currently free of any cardiac symptoms. We will monitor her on telemetry primarily to rule out bradycardia. If she is doing well, we should be able to discharge her home and arrange followup to our office. PAST MEDICAL HISTORY: Significant for aortic valve replacement, hypertension, diabetes, and dyslipidemia. MEDICATIONS: As charted. ALLERGIES: As charted. FAMILY HISTORY: Negative for premature coronary artery disease. SOCIAL HISTORY: Negative for current smoking, EtOH abuse or drug abuse. REVIEW OF SYSTEMS: A review of systems has been performed. Pertinence are as documented. PHYSICAL EXAMINATION: GENERAL: Comfortable at rest. VITAL SIGNS: Stable. There are no orthostatic changes. NECK: Carotid upstroke is normal. There is no bruit. CHEST: Reveals good air entry bilaterally HEART: Reveals first and second heart sounds. No gallop, no murmur. ABDOMEN: Soft, nontender. EXTREMITIES: Did not reveal any edema. Peripheral pulses are felt. LABORATORY DATA: As described above. ASSESSMENT: 1. Syncope, rule out cardiac causes. 2. Aortic stenosis, status post aortic valve replacement. PLAN: Will watch her on telemetry for the next 24 hours. If she is doing good, we should be able to discharge her home and pursue her workup as outpatient. MMODL / IJN: [id number] /
--- NOTE | 2022-08-16 22:44 | CT ---
EXAMINATION TYPE: CT chest wo con DATE OF EXAM: 08/16/2022 COMPARISON: 05/26/2021 HISTORY: syncope and SOB CT DLP: 560.2 mGycm Automated exposure control for dose reduction was used. Images obtained from the thoracic inlet to the diaphragm with no contrast. The lungs are clear of consolidation. No pulmonary mass. No pleural effusion. Heart size is normal. N o pericardial effusion. There is surgery at the aortic valve. No mediastinal adenopathy. There are no hilar masses. There is mild depression superior endplate of T3 vertebra 10%. There is anterior wedgi ng of T10 vertebra 35%. Fractures not significantly different than old exam. There are emphysematous changes in the lungs. IMPRESSION: Pulmonary emphysema. No suspicious pulmonary mass. Old thoracic compression fractures. There is clear ing of the extensive airspace infiltrates and atelectasis compared to old exam.
--- NOTE | 2022-08-16 23:16 | HP ---
HISTORY AND PHYSICAL HISTORY OF PRESENT ILLNESS: 72-year-old white female, status post TAVR 2 months ago. She was placed on 2 new medicines status post TAVR. Since then, she has passed out 2 or 3 times, unclear why she is passing out. She had negative EEG on last admission, was ruled out for a seizure. I suspect she has orthostatic hypotension, possibly some dehydration, maybe medications that she was started on status post TAVR as she says she is taking 2 new medicines. She has low oxygen though with hypoxemia. I am going to do a CAT scan of her chest. D-dimer is negative. Labs are reviewed. CAT scans of the head and spine are negative. Cardiovascular: History of footdrop, several strokes, wears AFO. History of cervical cancer, colon cancer, chemoradiation; restless legs; drop of the bilateral legs; weight loss, at one time weighed 545; using a CPAP; history of colostomy; bilateral cataracts; hernia repair; recent heart catheterization; aortogram; panniculectomy; aortic valve replacement. Recent sugar was in the 100s when she got dizzy and passed out at home. Sugars were running a little bit higher than normal. She had a bowl of ice cream a little while before that. MEDICATIONS: See list, include: 1. Multivitamin. 2. Zoloft 50 daily. 3. Eliquis 5 mg b.i.d. 4. Lipitor 40 mg daily. 5. NPH insulin 30 in the morning. 6. Fluticasone daily. 7. Norvasc 10 mg daily. 8. Metformin 1000 b.i.d. 9. Pepcid 20 mg daily. 10.Protonix 40 b.i.d. ALLERGIES: Bee venom, Keflex, latex, penicillin, and sulfa. PHYSICAL EXAMINATION: VITAL SIGNS: Temp 98, respiratory rate 18 to 21, pulse 72, blood pressure 120s over 60s, O2 of 90% on room air and 93% on 2 L. CARDIOVASCULAR: S1, S2. LUNGS: Clear. VASCULAR: Normal dorsalis pedis and posterior tibial. NEUROLOGIC: Alert and oriented x3. OPHTHALMOLOGIC: Pupils equal, round, and reactive. PSYCH: Fair mood and affect. ASSESSMENT: 1. Recurrent syncope, unclear etiology, rule out seizure disorder versus orthostatic hypotension versus heart arrhythmia. 2. History of severe aortic stenosis. Recheck echo. 3. Diabetes mellitus. 4. Does not appear to be hypotension. Maybe cut back on her hypertension medicine as she came in with low blood pressures. 5. History of peripheral neuropathy. 6. Obstructive sleep apnea. PLAN: Maybe cut her Norvasc from 10 to 5. Watch her blood pressures. PROGNOSIS: Guarded. MMODL / IJN: [id number] /
[2022-08-17] MEDS: ACETAMINOPHEN TAB 325 MG TAB PO PRN (03:42)
[2022-08-17 08:09] LABS: Glucose,Whole Blood 151 mg/dL (70-110)
[2022-08-17] MEDS: MULTIVITAMINS, THERA 1 EACH TAB PO SCH (08:18)
[2022-08-17] MEDS: PANTOPRAZOLE 40 MG TABLET PO SCH (08:18)
[2022-08-17] MEDS: metFORMIN 500 MG TAB PO SCH (08:18)
[2022-08-17] MEDS: APIXABAN 5 MG TAB PO SCH (08:18)
[2022-08-17 08:46] VITALS: RESP 14; TEMP 97.6
[2022-08-17] MEDS ORDERED: INSULIN NPH 100 UNIT/ML 10 ML VIAL SQ SCH (09:00)
[2022-08-17] MEDS ORDERED: amLODIPine 10 MG TAB PO SCH (09:00)
[2022-08-17] MEDS ORDERED: SERTRALINE 50 MG TAB PO SCH (09:00)
[2022-08-17] MEDS ORDERED: CLOPIDOGREL 75 MG TAB PO SCH (09:00)
[2022-08-17] MEDS ORDERED: FAMOTIDINE 20 MG TAB PO SCH (09:00)
[2022-08-17] MEDS ORDERED: amLODIPine 5 MG TAB PO SCH (09:00)
[2022-08-17 10:11] LABS: Basophils # (A) 0.07 X 10*3/uL (0.00-0.10); Basophils % (A) 0.9 %; Eosinophils # (A) 0.13 X 10*3/uL (0.04-0.35); Eosinophils % (A) 1.6 %; HCT 40.5 % (37.2-46.3); HGB 13.2 g/dL (12.0-15.0); Immature Grans, Automated 0.5 %; Lymphocytes # (A) 2.53 X 10*3/uL (0.90-5.00); Lymphocytes % (A) 31.4 %; MCH 32.4 pg (27.0-32.0); MCHC 32.6 g/dL (32.0-37.0); MCV 99.3 fL (80.0-97.0); Mean Platelet Volume 10.5 fL (9.5-12.2); Monocytes # (A) 0.54 X 10*3/uL (0.20-1.00); Monocytes % (A) 6.7 %; NRBC Per 100 WBC 0 /100 WBCS (0.0-0.0); Neutrophils # (A) 4.74 X 10*3/uL (1.80-7.70); Neutrophils % (A) 58.9 %; Platelet Count 133 X 10*3/uL (140-440); RBC 4.08 X 10*6/uL (4.10-5.20); RDW 13.4 % (11.5-14.5); WBC 8.05 X 10*3/uL (4.50-10.00)
[2022-08-17 10:39] LABS: ALT 16 U/L (8-44); AST 16 U/L (13-35); African American GFR (CKD) 79.6 (60.0-200.0); Albumin 3.7 g/dL (3.8-4.9); Albumin/Globulin Ratio 1.56 (1.60-3.17); Alkaline Phosphatase 112 U/L (41-126); BUN/Creat Ratio 19.93 Ratio (12.00-20.00); Blood Urea Nitrogen 17.1 mg/dL (9.0-27.0); Calcium 8.9 mg/dL (8.7-10.3); Carbon Dioxide 24.9 mmol/L (20.0-27.5); Chloride 105 mmol/L (96-109); Globulin 2.4 g/dL (1.6-3.3); Glucose 153 mg/dL (70-110); Magnesium 1.5 mg/dL (1.5-2.4); Non-African American GFR(CKD) 68.6 (60.0-200.0); Phosphorus 3.8 mg/dL (2.4-5.1); Potassium 4.6 mmol/L (3.5-5.5); Sodium 140 mmol/L (135-145); Total Protein 6.1 g/dL (6.2-8.2)
[2022-08-17] MEDS: ALBUTEROL NEBULIZED 2.5 MG/3 ML INHALATION PRN (11:19)
[2022-08-17 11:21] VITALS: BP 133/79
[2022-08-17 11:23] VITALS: PULSE 60
--- NOTE | 2022-08-17 12:16 | P.PN ---
Subjective Progress Note Date: 08/17/22 The patient seen at bedside and no further syncopal episodes. She denies of any new neurological deficit. Objective - Vital Signs Vital signs: Vital Signs Temp 97.6 F 08/17/22 08:00 Pulse 60 08/17/22 11:33 Resp 14 08/17/22 08:00 BP 133/79 08/17/22 11:21 Pulse Ox 96 08/17/22 08:00 FiO2 90 08/16/22 22:23 Intake & Output 08/16/22 08/17/22 08/17/22 18:59 06:59 18:59 Intake Total 800 300 Output Total 800 Balance 0 300 Intake: Oral 800 300 Output: Urine 800 Other: Voiding Method External Catheter External Catheter Toilet # Voids 2 2 - Exam GENERAL: The patient is lying in bed and is not in acute distress. NEUROLOGICAL: Higher mental function: The patient is awake, alert, oriented to self, place and time. Patient is following commands. No aphasia and no neglect. Cranial nerves: The pupils are round, equal and reactive to light and accommodation. Visual whitehead are full to confrontation throughout. Extraocular movement is intact no nystagmus is noted. Facial sensation is normal to touch throughout. The facial strength is normal throughout. Hearing is normal bilaterally to hand rub. Tongue is midline and moved [id number] without any difficulty. No dysarthria is noted. Shoulder shrug is normal bilaterally. Motor: The strength is limited over the right lower because of pain and has antigravity. Otherwise 5 over 5 throughout. Normal tone and bulk. Cerebellum: Normal finger to nose bilaterally. Sensation: Sensation is normal to touch throughout. Reflexes (right/left): 1+ throughout. Plantars are mute bilaterally. Some of the workup during this hospital visit consisted of: Orthostatic vitals is negative Glucose is 211, calcium phosphorus is within normal limits. Magnesium is 1.4 CT of the head is reported as negative CT scan of the brain. Brain is unchanged compared to old exam. I personally reviewed the CT and agree report CT of cervical spine is reported as spondylitic changes in the lower cervical spine. No fracture. EKG is reported as sinus rhythm. Moderate intraventricular conduction delay. Borderline EKG. - Labs CBC & Chem 7: 08/17/22 06:12 08/17/22 06:12 Labs: Abnormal Lab Results - Last 24 Hours (Table) 08/16/22 08/16/22 08/16/22 Range/Units 12:16 17:09 21:57 RBC (4.10-5.20) X 10*6/uL MCV (80.0-97.0) fL MCH (27.0-32.0) pg Plt Count (140-440) X 10*3/uL Anion Gap (10.00-18.00) mmol/L Glucose (70-110) mg/dL POC Glucose (mg/dL) 149 H 150 H 145 H (70-110) mg/dL Total Protein (6.2-8.2) g/dL Albumin (3.8-4.9) g/dL Albumin/Globulin Ratio (1.60-3.17) g/dL 08/17/22 08/17/22 08/17/22 Range/Units 06:12 06:12 08:08 RBC 4.08 L (4.10-5.20) X 10*6/uL MCV 99.3 H (80.0-97.0) fL MCH 32.4 H (27.0-32.0) pg Plt Count 133 L (140-440) X 10*3/uL Anion Gap 9.90 L (10.00-18.00) mmol/L Glucose 153 H (70-110) mg/dL POC Glucose (mg/dL) 151 H (70-110) mg/dL Total Protein 6.1 L (6.2-8.2) g/dL Albumin 3.7 L (3.8-4.9) g/dL Albumin/Globulin Ratio 1.56 L (1.60-3.17) g/dL Assessment and Plan Assessment: Recurrent Syncopal episode of unknown etiology but does not appear to be seizures. Rule out cardiac in nature especially with a history of severe aortic valve stenosis. Patient had 2 normal routine EEGs and had an normal MRI of the brain end of 06/2022. History of severe aortic stenosis status post valve repair in CT of syncopal episodes of unknown etiology Reported the multiple TIAs in the past Diabetes mellitus and the last hemoglobin A1c was 8.0 Hypertension Hyperlipidemia History of peripheral neuropathy History of obstructive sleep apnea Plan: Ordered two and half hour ambulatory EEG as an outpatient and this will be coordinated by the senior mechanical technician. Seizure suspicion is unlikely. Cardiology team is consulted PT and OT is consulted for gait training We'll defer the rest of the medical management to the primary team Recommend the patient to follow-up with a neurologist as outpatient and she stated she has an appointment coming up with Dr. Gauthier this month. The plan is discussed with the patient and her nurse. There is no further neurological workup. We'll sign off. Please are consulted needed Ish Kirkpatrick M.D. Neuro-Hospitalist Time with Patient: Less than 30
--- NOTE | 2022-08-17 23:17 | PN ---
PROGRESS NOTE SUBJECTIVE: Milka William is a 72-year-old lady, who was admitted to hospital with syncope. Since being admitted to the hospital, she has been doing good. She is free of symptoms, did not have documented tachy or bradyarrhythmias, does not have chest pain or difficulty in breathing and did not have any dizziness or syncope. She is stable hemodynamically. Her amlodipine dose had been decreased. OBJECTIVE: GENERAL: Comfortable at rest. VITAL SIGNS: Stable. CHEST: Reveals good air entry bilaterally. HEART: Reveals first and second heart sounds. Ejection systolic murmur in the aortic area. ABDOMEN: Soft. EXTREMITIES: Did not reveal any edema. Peripheral pulses are felt. LABORATORY DATA: Labs show that the hemoglobin is 13.2, potassium is 4.6, creatinine is 0.9. ASSESSMENT: Syncope, rule out cardiac causes. PLAN: The patient is doing well. No further cardiac workup at this time. We do not need an echo on this admission. Stable for discharge, and outpatient followup through my office. MMODL / IJN: [id number] /
== END 2022-08-17 14:16 | disposition home or self-care (01) ==
LOC: EC 22:19 → 6NMEDSUR 08-16 00:12
PROVIDERS: ADMIT Family Medicine; ATTEND Family Medicine
DX: R55 Syncope and collapse (principal); I35.0 Nonrheumatic aortic (valve) stenosis; I10 Essential (primary) hypertension; E78.5 Hyperlipidemia, unspecified; E11.42 Type 2 diabetes mellitus with diabetic polyneuropathy; G47.33 Obstructive sleep apnea (adult) (pediatric); G25.81 Restless legs syndrome; K21.9 Gastro-esophageal reflux disease without esophagitis; M19.90 Unspecified osteoarthritis, unspecified site; F32.A Depression, unspecified; Z93.3 Colostomy status; Z96.642 Presence of left artificial hip joint; Z86.73 Personal history of transient ischemic attack (TIA), and cerebral infarction without residual deficits; Z95.2 Presence of prosthetic heart valve; Z85.038 Personal history of other malignant neoplasm of large intestine; Z85.41 Personal history of malignant neoplasm of cervix uteri; Z92.21 Personal history of antineoplastic chemotherapy; Z92.3 Personal history of irradiation; Z87.891 Personal history of nicotine dependence; Z79.01 Long term (current) use of anticoagulants; Z79.02 Long term (current) use of antithrombotics/antiplatelets; Z79.84 Long term (current) use of oral hypoglycemic drugs; Z79.899 Other long term (current) drug therapy; Z79.4 Long term (current) use of insulin; Z88.1 Allergy status to other antibiotic agents; Z88.0 Allergy status to penicillin; Z88.2 Allergy status to sulfonamides; Z88.5 Allergy status to narcotic agent; Z91.040 Latex allergy status
CPT/HCPCS: 96372 ×2; 99285; 36415; 94640 ×2; 94760; 93005; 85379 ×2; 83880 ×2; 80053 ×2; 84443; 83735 ×2; 84100 ×2; 84484 ×2; 85025 ×2; 85610; 85730; 71046; 72125; 70450; 71250; G0378 ×2

== ENCOUNTER 2022-10-06 00:32 | Inpatient (IN) | payer MEDICARE ==
[2022-10-06] MEDS ORDERED: ONDANSETRON 4 MG/2 ML VIAL IVP STA (00:51)
[2022-10-06] MEDS ORDERED: SODIUM CHLORIDE 0.9% 1,000 ML IV STA ×2 (00:51→01:31)
[2022-10-06] MEDS ORDERED: MORPHINE SULFATE 4 MG/ML SYRINGE IV STA (00:51)
[2022-10-06] MEDS ORDERED: PANTOPRAZOLE 40 MG/10 ML VIAL IVP STA (00:51)
[2022-10-06] MEDS ORDERED: ASPIRIN 81 MG PO STA (00:53)
[2022-10-06 01:01] LABS: Basophils # (A) 0.1 k/uL (0-0.2); Basophils % (A) 0 %; Eosinophils # (A) 0.1 k/uL (0-0.7); Eosinophils % (A) 1 %; HGB 14.6 gm/dL (11.4-16.0); Lymphocytes # (A) 1.4 k/uL (1.0-4.8); Lymphocytes % (A) 9 %; MCH 33.6 pg (25.0-35.0); MCHC 34.7 g/dL (31.0-37.0); MCV 96.9 fL (80.0-100.0); Mean Platelet Volume 11.1; Monocytes # (A) 0.6 k/uL (0-1.0); Monocytes % (A) 4 %; Neutrophils # (A) 13.7 k/uL (1.3-7.7); Neutrophils % (A) 86 %; Platelet Count 182 k/uL (150-450); RBC 4.34 m/uL (3.80-5.40)
[2022-10-06 01:10] LABS: ALT 25 U/L (4-34); AST 34 U/L (14-36); African American GFR (CKD) >90 (>60 ml/min/1.73 sqM); Albumin 4.9 g/dL (3.5-5.0); Alkaline Phosphatase 153 U/L (38-126); Amylase 67 U/L (30-110); Anion Gap 15 mmol/L; Blood Urea Nitrogen 19 mg/dL (7-17); Carbon Dioxide 20 mmol/L (22-30); Chloride 102 mmol/L (98-107); Glucose 326 mg/dL (74-99); Lipase 53 U/L (23-300); Non-African American GFR(CKD) >90 (>60 ml/min/1.73 sqM); Potassium 3.7 mmol/L (3.5-5.1); Sodium 137 mmol/L (137-145); Total Bilirubin 0.9 mg/dL (0.2-1.3); Total Protein 7.8 g/dL (6.3-8.2)
[2022-10-06 01:14] LABS: Prothrombin Time 10.8 sec (9.0-12.0)
[2022-10-06 01:58] LABS: Appearance,Urine Clear (Clear); Bacteria,Urine Rare /hpf; Bilirubin,Urine Negative (Negative); Blood,Urine Trace (Negative); Color,Urine Colorless; Glucose,Urine (UA) 4+ (Negative); Ketones,Urine 1+ (Negative); Leukocyte Esterase,Urine Negative (Negative); Mucus,Urine Rare /hpf; Nitrite,Urine Negative (Negative); PH, Urine 6.5 (5.0-8.0); Protein,Urine 1+ (Negative); RBC,Urine 15 /hpf (0-5); Specific Gravity,Urine 1.013 (1.001-1.035); Squamous Epithelial Cell,Urine <1 /hpf (0-4); Urobilinogen,Urine <2.0 mg/dL (<2.0); WBC,Urine 3 /hpf (0-5)
--- NOTE | 2022-10-06 02:06 | ED ---
General Adult HPI - General Chief complaint: Arrhythmia/Palpitations Stated complaint: palpitations, vomiting Time Seen by Provider: 10/06/22 00:42 Source: patient, RN notes reviewed, old records reviewed Mode of arrival: ambulatory Limitations: no limitations - History of Present Illness Initial comments: Patient is a 72-year-old female who presents emergency Department complaining of sudden onset nausea, vomiting as well as what she describes as diffuse pain that radiates from her mid chest down to her lower abdomen and through to her back. States this was more or less sudden in onset at approximate 7 PM last night. Has had multiple episodes of nonbilious nonbloody emesis since then. Has not been able to hold anything down. Per son, patient has been constantly vomiting since then. Unknown reason. Does have a history of bowel obstruction. Patient has a history of diabetes, atrial fibrillation on blood thinners, hypertension, multiple strokes. Is uncertain what is causing her current symptoms. Denies any fevers, chills, sick contacts. States she does not believe she is constipated. Denies any urinary complaints. States she is nauseous and is in severe pain. Difficult to obtain further history at this time secondary to her pain. Presents for further evaluation at this time.Patient told triage that she felt like her heart was skipping beats which she denies to me at this time but states that she is mostly having chest pain, with lightheadedness. Denies headache or blurry vision. - Related Data Home Medications Medication Instructions Recorded Confirmed Albuterol Inhaler [Ventolin Hfa 2 puff INHALATION RT-QID PRN 10/17/21 08/16/22 Inhaler] Multivit-Min/Iron/Folic/Lutein 1 tab PO BID 10/17/21 08/16/22 [Centrum Silver Women Tablet] Sertraline [Zoloft] 50 mg PO DAILY 10/18/21 08/16/22 Insulin NPH Human Isophane 30 units SQ DAILY 01/16/22 08/16/22 [NovoLIN N] Pramipexole Di-HCl [Mirapex] 0.125 mg PO HS 01/17/22 08/16/22 Baclofen 10 mg PO HS 02/06/22 08/16/22 Fluticasone Nasal [place] [Flonase 2 spray EA NOSTRIL DAILY PRN 02/06/22 08/16/22 Nasal [place]] Nitroglycerin Sl Tabs [Nitrostat] 0.4 mg SUBLINGUAL Q5M PRN 02/06/22 08/16/22 Insulin NPH Human Isophane 35 units SQ HS 03/31/22 08/16/22 [NovoLIN N] Previous Rx's Medication Instructions Recorded Apixaban [Eliquis] 5 mg PO BID #60 tab 10/21/21 Atorvastatin [Lipitor] 40 mg PO HS #30 tablet 10/21/21 Acetaminophen Tab [Tylenol] 650 mg PO Q6HR PRN tab 01/21/22 Clopidogrel [Plavix] 75 mg PO DAILY #30 tab 04/03/22 metFORMIN HCL [Glucophage] 1,000 mg PO BID #0 04/03/22 Famotidine [Pepcid] 20 mg PO DAILY #30 tab 07/12/22 Mag Hydrox/Al Hydrox/Simeth 30 ml PO Q4HR PRN ml 07/12/22 [Maalox] Pantoprazole [Protonix] 40 mg PO AC-BID 15 Days #30 tab 07/12/22 amLODIPine [Norvasc] 5 mg PO DAILY tab 08/17/22 Allergies Allergy/AdvReac Type Severity Reaction Status Date / Time bee venom protein (honey bee) Allergy Anaphylaxis Verified 10/06/22 00:37 cephalexin [From Keflex] Allergy Rash/Hives Verified 10/06/22 00:37 codeine Allergy rash, Verified 10/06/22 00:37 swelling latex Allergy Rash/Hives Verified 10/06/22 00:37 Penicillins Allergy Swelling Verified 10/06/22 00:37 Sulfa (Sulfonamide Allergy Unknown Verified 10/06/22 00:37 Antibiotics) Review of Systems ROS Statement: Those systems with pertinent positive or pertinent negative responses have been documented in the HPI. Review of Systems: CONST: Denies fever EYES: Denies blurry vision ENT: Denies nasal congestion C/V: Endorses chest pain, back pain RESP: Denies shortness of breath GI: Endorses diffuse abdominal pain. : Denies dysuria SKIN: Denies rash. MSK: Denies joint pain. NEURO: Denies headache ROS Other: All systems not noted in ROS Statement are negative. Past Medical History Past Medical History: Atrial Fibrillation, Cancer, CVA/TIA, Diabetes Mellitus, GERD/Reflux, Hyperlipidemia, Hypertension, Osteoarthritis (OA), Sleep Apnea/CPAP/BIPAP Additional Past Medical History / Comment(s): states 7 strokes, states left foot drop, and wears an AFO, hx of cervical CA, and colon CA 2002, had chemo and radiation, restless leg, neuropathy tr legs, states has had weight loss, at one time weighed 545lbs, uses CPAP History of Any Multi-Drug Resistant Organisms: None Reported Past Surgical History: Bowel Resection, Heart Catheterization, Heart Catheterization With Stent, Hernia Repair, Hysterectomy, Joint Replacement, Pacemaker Additional Past Surgical History / Comment(s): hx of colostomy, and then reversal, tr cataract sx, left hip replaced, states had 5 hernia repairs with mesh, loop recorder, recent heart cath., panniculectomy, recent aortogram, aorta valve replacemnet 04/02/22 Past Anesthesia/Blood Transfusion Reactions: No Reported Reaction Date of Last Stent Placement:: 2013 Type of Cardiac Device: Loop Device Placement Date:: 12/23/20 Past Psychological History: Depression Smoking Status: Current every day smoker Past Alcohol Use History: None Reported Past Drug Use History: None Reported - Past Family History Brother(s) Family Medical History: Cancer Sister(s) History Unknown: Yes Daughter(s) History Unknown: Yes Son(s) Family Medical History: No Reported History Father Family Medical History: Cancer, Coronary Artery Disease (CAD), Diabetes Mellitus Mother Family Medical History: Coronary Artery Disease (CAD), CVA/TIA, Diabetes Josephinei grace General Exam - General Exam Comments Initial Comments: General: Appears in moderate distress secondary to pain as well as nausea HEAD: Normal with no signs of head trauma. EYES: PERRLA, EOMI, conjunctiva normal, no discharge. ENT: Hearing grossly intact, normal oropharynx. Dry mucous membranes. RESPIRATORY: Clear breath sounds bilaterally. No wheezes, rales, or rhonchi. C/V: Regular rate and rhythm. S1 and S2 auscultated, no edema, peripheral pulses 2+ and intact throughout ABD: Abdomen soft, nondistended. Tender to palpation generally. No specific point tenderness. Mildly over the epigastrium. No guarding. No rebound tenderness, no peritoneal signs. EXT: Normal range of motion, no obvious deformity. Patient is paraspinal muscle tenderness to palpation through throughout the back. SKIN: No rashes or lesions observed on exposed skin. NEURO: Alert and oriented 4. Limitations: no limitations Course Vital Signs 10/06/22 00:33 Temperature 98 F Pulse Rate 91 Respiratory 20 Rate Blood Pressure 193/88 O2 Sat by Pulse 98 Oximetry Procedures - [facility] Protocol (Time Out) Nurse: Basim Zuluaga Medical Decision Making - Medical Decision Making Based on the patient's presentation and physical exam, the patient presents complaining of diffuse abdominal pain, chest pain with radiation to the back as well as nausea and vomiting. I am concerned for possible aortic catastrophe and the patient. Cannot rule out intra-abdominal pathology at this time either. We will obtain a cardiopulmonary and abdominal labs in addition to CT angiogram of the chest, abdomen, pelvis. She'll be symptomatically treated with IV fluids, Zofran, analgesia. She was in agreement this plan. Patient is mildly hypertensive but otherwise vital signs within acceptable limits. EKG shows atrial fibrillation with no signs of acute ischemia. Laboratory studies are remarkable for a leukocytosis of 16 which is likely reactive. Lactic acid is elevated to 6.3 which I believe is likely secondary to her many episodes of emesis since 7 PM last night. Patient does have a small metabolic acidosis with an intermediate anion gap which is likely secondary to lactic acidosis. Do not suspect DKA at this time his acetone is negative. Patient's blood sugar is 326. Troponin is undetectable. Urinalysis unremarkable. Remainder the labs are within acceptable limits. Patient's CT imaging as interpreted by myself reveals no evidence of aortic catastrophe, dissection, aneurysm. No obvious intra-abdominal pathology. As interpreted by radiology, they are in agreement with this evaluation. No acute findings on CT imaging. On reevaluation, patient's vital signs remaine will. She is resting comfortably on bed. Still some mild lower back tenderness to palpation but no obvious nausea or other complaints at this time. We did discuss her workup. I would like to admit her for her dehydration. We will obtain repeat lactic acid and continued fluid hydration as well as symptomatic treatment. Patient was in agreement this plan. I spoke with the admitting team, JOZEF Guillen of [facility] who accepted the patient. She was admitted in stable condition. - Lab Data Result diagrams: 10/06/22 00:55 10/06/22 00:55 Lab Results 10/06/22 10/06/22 10/06/22 Range/Units 00:55 00:55 00:55 WBC 16.0 H (3.8-10.6) k/uL RBC 4.34 (3.80-5.40) m/uL Hgb 14.6 (11.4-16.0) gm/dL Hct 42.0 (34.0-46.0) % MCV 96.9 (80.0-100.0) fL MCH 33.6 (25.0-35.0) pg MCHC 34.7 (31.0-37.0) g/dL RDW 15.0 (11.5-15.5) % Plt Count 182 (150-450) k/uL MPV 11.1 Neutrophils % 86 % Lymphocytes % 9 % Monocytes % 4 % Eosinophils % 1 % Basophils % 0 % Neutrophils # 13.7 H (1.3-7.7) k/uL Lymphocytes # 1.4 (1.0-4.8) k/uL Monocytes # 0.6 (0-1.0) k/uL Eosinophils # 0.1 (0-0.7) k/uL Basophils # 0.1 (0-0.2) k/uL PT 10.8 (9.0-12.0) sec INR 1.0 (<1.2) APTT 25.0 (22.0-30.0) sec Sodium 137 (137-145) mmol/L Potassium 3.7 (3.5-5.1) mmol/L Chloride 102 (98-107) mmol/L Carbon Dioxide 20 L (22-30) mmol/L Anion Gap 15 mmol/L BUN 19 H (7-17) mg/dL Creatinine 0.65 (0.52-1.04) mg/dL Est GFR (CKD-EPI)AfAm >90 (>60 ml/min/1.73 sqM) Est GFR (CKD-EPI)NonAf >90 (>60 ml/min/1.73 sqM) Glucose 326 H (74-99) mg/dL Plasma Lactic Acid Adán (0.7-2.0) mmol/L Calcium 9.0 (8.4-10.2) mg/dL Total Bilirubin 0.9 (0.2-1.3) mg/dL AST 34 (14-36) U/L ALT 25 (4-34) U/L Alkaline Phosphatase 153 H (38-126) U/L Troponin I (0.000-0.034) ng/mL Total Protein 7.8 (6.3-8.2) g/dL Albumin 4.9 (3.5-5.0) g/dL Amylase 67 (30-110) U/L Lipase 53 (23-300) U/L Urine Color Urine Appearance (Clear) Urine pH (5.0-8.0) Ur Specific [place] (1.001-1.035) Urine Protein (Negative) Urine Glucose (UA) (Negative) Urine Ketones (Negative) Urine Blood (Negative) Urine Nitrite (Negative) Urine Bilirubin (Negative) Urine Urobilinogen (<2.0) mg/dL Ur Leukocyte Esterase (Negative) Urine RBC (0-5) /hpf Urine WBC (0-5) /hpf Ur Squamous Epith Cells (0-4) /hpf Urine Bacteria (None) /hpf Urine Mucus (None) /hpf Acetone, Qual (Negative) 10/06/22 10/06/22 10/06/22 Range/Units 00:55 00:55 00:55 WBC (3.8-10.6) k/uL RBC (3.80-5.40) m/uL Hgb (11.4-16.0) gm/dL Hct (34.0-46.0) % MCV (80.0-100.0) fL MCH (25.0-35.0) pg MCHC (31.0-37.0) g/dL RDW (11.5-15.5) % Plt Count (150-450) k/uL MPV Neutrophils % % Lymphocytes % % Monocytes % % Eosinophils % % Basophils % % Neutrophils # (1.3-7.7) k/uL Lymphocytes # (1.0-4.8) k/uL Monocytes # (0-1.0) k/uL Eosinophils # (0-0.7) k/uL Basophils # (0-0.2) k/uL PT (9.0-12.0) sec INR (<1.2) APTT (22.0-30.0) sec Sodium (137-145) mmol/L Potassium (3.5-5.1) mmol/L Chloride (98-107) mmol/L Carbon Dioxide (22-30) mmol/L Anion Gap mmol/L BUN (7-17) mg/dL Creatinine (0.52-1.04) mg/dL Est GFR (CKD-EPI)AfAm (>60 ml/min/1.73 sqM) Est GFR (CKD-EPI)NonAf (>60 ml/min/1.73 sqM) Glucose (74-99) mg/dL Plasma Lactic Acid Adán 6.3 H* (0.7-2.0) mmol/L Calcium (8.4-10.2) mg/dL Total Bilirubin (0.2-1.3) mg/dL AST (14-36) U/L ALT (4-34) U/L Alkaline Phosphatase (38-126) U/L Troponin I <0.012 (0.000-0.034) ng/mL Total Protein (6.3-8.2) g/dL Albumin (3.5-5.0) g/dL Amylase (30-110) U/L Lipase (23-300) U/L Urine Color Urine Appearance (Clear) Urine pH (5.0-8.0) Ur Specific [place] (1.001-1.035) Urine Protein (Negative) Urine Glucose (UA) (Negative) Urine Ketones (Negative) Urine Blood (Negative) Urine Nitrite (Negative) Urine Bilirubin (Negative) Urine Urobilinogen (<2.0) mg/dL Ur Leukocyte Esterase (Negative) Urine RBC (0-5) /hpf Urine WBC (0-5) /hpf Ur Squamous Epith Cells (0-4) /hpf Urine Bacteria (None) /hpf Urine Mucus (None) /hpf Acetone, Qual Negative (Negative) 10/06/22 Range/Units 01:32 WBC (3.8-10.6) k/uL RBC (3.80-5.40) m/uL Hgb (11.4-16.0) gm/dL Hct (34.0-46.0) % MCV (80.0-100.0) fL MCH (25.0-35.0) pg MCHC (31.0-37.0) g/dL RDW (11.5-15.5) % Plt Count (150-450) k/uL MPV Neutrophils % % Lymphocytes % % Monocytes % % Eosinophils % % Basophils % % Neutrophils # (1.3-7.7) k/uL Lymphocytes # (1.0-4.8) k/uL Monocytes # (0-1.0) k/uL Eosinophils # (0-0.7) k/uL Basophils # (0-0.2) k/uL PT (9.0-12.0) sec INR (<1.2) APTT (22.0-30.0) sec Sodium (137-145) mmol/L Potassium (3.5-5.1) mmol/L Chloride (98-107) mmol/L Carbon Dioxide (22-30) mmol/L Anion Gap mmol/L BUN (7-17) mg/dL Creatinine (0.52-1.04) mg/dL Est GFR (CKD-EPI)AfAm (>60 ml/min/1.73 sqM) Est GFR (CKD-EPI)NonAf (>60 ml/min/1.73 sqM) Glucose (74-99) mg/dL Plasma Lactic Acid Adán (0.7-2.0) mmol/L Calcium (8.4-10.2) mg/dL Total Bilirubin (0.2-1.3) mg/dL AST (14-36) U/L ALT (4-34) U/L Alkaline Phosphatase (38-126) U/L Troponin I (0.000-0.034) ng/mL Total Protein (6.3-8.2) g/dL Albumin (3.5-5.0) g/dL Amylase (30-110) U/L Lipase (23-300) U/L Urine Color Colorless Urine Appearance Clear (Clear) Urine pH 6.5 (5.0-8.0) Ur Specific [place] 1.013 (1.001-1.035) Urine Protein 1+ H (Negative) Urine Glucose (UA) 4+ H (Negative) Urine Ketones 1+ H (Negative) Urine Blood Trace H (Negative) Urine Nitrite Negative (Negative) Urine Bilirubin Negative (Negative) Urine Urobilinogen <2.0 (<2.0) mg/dL Ur Leukocyte Esterase Negative (Negative) Urine RBC 15 H (0-5) /hpf Urine WBC 3 (0-5) /hpf Ur Squamous Epith Cells <1 (0-4) /hpf Urine Bacteria Rare H (None) /hpf Urine Mucus Rare H (None) /hpf Acetone, Qual (Negative) - EKG Data -: EKG Interpreted by Me EKG Comments: 12-lead Electrocardiogram Interpretation Note EKG was reviewed and interpreted by myself. 12-lead ECG performed at 0046 is interpreted by me as revealing atrial fibrillation at a rate of 69 beats per minute. [place] is normal. QRS durations 102 ms, QTc is 419 ms.. There were no ST or T wave abnormalities to suggest myocardial ischemia or injury. R wave progression across the precordium was satisfactory. By my interpretation this EKG is non-diagnostic for acute ischemia. When compared with EKG from July 2022, patient is now in atrial fibrillation which she does have a history of. Disposition Clinical Impression: Nausea and vomiting, Lactic acidosis, Dehydration Disposition: ADMITTED IP TO THIS HOSP Condition: Stable Referrals: Zhang Holguin MD [Primary Care Provider] - 1-2 days Time of Disposition: 02:50
[2022-10-06] MEDS ORDERED: MORPHINE SULFATE 4 MG/ML SYRINGE IVP STA (02:26)
--- NOTE | 2022-10-06 02:34 | CT ---
EXAMINATION TYPE: CT angio thor/abd pel aorta DATE OF EXAM: 10/06/2022 COMPARISON: HISTORY: EVAL FOR AORTA DISSECTION AND BOWEL OBSTRUCTION CT DLP: 1741.9 mGycm Automated exposure control for dose reduction was used. CONTRAST: Performed with IV Contrast, patient injected with 100 mL of Isovue 370. There are Three-D postprocessed images. The lungs are clear of consolidation. No pleural effusion. Heart size is normal. No pericardial effus ion. There is no mediastinal adenopathy. There are no hilar masses. There is previous surgery at the aortic valve. Liver spleen stomach pancreas and gallbladder appear i ntact. The bile ducts are not dilated. There is no adrenal mass. Kidneys show satisfactory contrast opacification. No hydronephrosis. There is no retroperitoneal adenopathy. Ureters are not dilated. No retroperitoneal adenopathy. The bladder distends smoothly. There is left hip prosthesis. No free fluid in the pelvis. No pelvic mass. There are sigmoid diverticula. No diverticulitis. There is no mesenteric edema. No ascites or free air. No sign of a bowel obstruction. There is arterial flow in the celiac artery and superior mesenteric artery. Abdominal aorta shows no aneurysm or dissection. There is arterial flow in the renal and iliac and femoral arteries. Mild athe romatous changes are present in the abdominal aorta and branches. No evidence of arterial aneurysm or dissection. There is variable plaque formation in the 50% stenosis in the iliac arteries. No signifi cant stenosis of the renal and celiac and superior mesenteric arteries. There is normal enhancement o f the portal venous system. Thoracic aorta is intact. No aneurysm or dissection. No evidence of filling defect in the pulmonary a rteries. The thoracic and lumbar vertebra have normal alignment. There is anterior wedging of T10 vertebra 20% and not changed compared to CT scan of 05/26/2021. IMPRESSION: Atherosclerotic mild vascular disease. No evidence of hemodynamic stenosis. No evidence of arterial a neurysm or dissection. No evidence of pulmonary embolism. No evidence of a bowel obstruction. Mild colonic diverticulosis without diverticulitis.
[2022-10-06] MEDS ORDERED: NALOXONE 0.4 MG/ML 1 ML VIAL IV PRN (03:17)
[2022-10-06] MEDS: SODIUM CHLORIDE 0.9% 1,000 ML IV SCH ×3 (07:27→23:29)
[2022-10-06] MEDS: ONDANSETRON 4 MG/2 ML VIAL IVP PRN ×2 (07:28→21:52)
[2022-10-06] MEDS: amLODIPine 5 MG TAB PO SCH (09:40)
[2022-10-06] MEDS: metFORMIN 500 MG TAB PO SCH (09:40)
[2022-10-06] MEDS: CLOPIDOGREL 75 MG TAB PO SCH (09:40)
[2022-10-06] MEDS: APIXABAN 5 MG TAB PO SCH ×2 (09:40→21:53)
[2022-10-06] MEDS: MORPHINE SULFATE 4 MG/ML SYRINGE IV PRN ×2 (09:50→17:14)
[2022-10-06 09:53] LABS: Glucose,Whole Blood 244 mg/dL (70-110)
[2022-10-06] MEDS: INSULIN NPH 100 UNIT/ML 10 ML VIAL SQ SCH ×2 (10:31→21:52)
[2022-10-06] MEDS: SERTRALINE 50 MG TAB PO SCH (10:32)
[2022-10-06 11:26] LABS: Glucose,Whole Blood 243 mg/dL (70-110)
[2022-10-06] MEDS ORDERED: DEXTROSE 50% SYRINGE 50 ML IVP PRN ×2 (14:54)
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
[2022-10-06 16:46] LABS: Glucose,Whole Blood 155 mg/dL (70-110)
[2022-10-06] MEDS: INSULIN ASPART (NovoLOG) 100 UNIT/ML VIAL SQ SCH ×2 (17:12→21:45)
[2022-10-06 20:28] LABS: Glucose,Whole Blood 145 mg/dL (70-110)
[2022-10-06] MEDS: ATORVASTATIN 40 MG TAB PO SCH (21:53)
[2022-10-07] MEDS: MORPHINE SULFATE 4 MG/ML SYRINGE IV PRN ×2 (01:06→22:22)
[2022-10-07 06:37] LABS: Glucose,Whole Blood 171 mg/dL (70-110)
[2022-10-07] MEDS: ACETAMINOPHEN TAB 325 MG TAB PO PRN ×2 (06:52→20:03)
[2022-10-07] MEDS: INSULIN ASPART (NovoLOG) 100 UNIT/ML VIAL SQ SCH ×4 (06:52→22:11)
[2022-10-07] MEDS: CLOPIDOGREL 75 MG TAB PO SCH (07:51)
[2022-10-07] MEDS: amLODIPine 5 MG TAB PO SCH (07:51)
[2022-10-07] MEDS: metFORMIN 500 MG TAB PO SCH ×2 (07:51→20:03)
[2022-10-07] MEDS: APIXABAN 5 MG TAB PO SCH ×2 (07:51→20:03)
[2022-10-07] MEDS: SERTRALINE 50 MG TAB PO SCH (07:52)
[2022-10-07] MEDS: INSULIN NPH 100 UNIT/ML 10 ML VIAL SQ SCH ×2 (08:12→22:21)
[2022-10-07] MEDS ORDERED: amLODIPine 5 MG TAB PO STA (08:59)
[2022-10-07] MEDS ORDERED: amLODIPine 5 MG TAB PO SCH (09:00)
[2022-10-07 10:30] LABS: African American GFR (CKD) 101.7 (60.0-200.0); Albumin/Globulin Ratio 1.54 (1.60-3.17); BUN/Creat Ratio 12.86 Ratio (12.00-20.00); Calcium 8.9 mg/dL (8.7-10.3); Globulin 2.6 g/dL (1.6-3.3); Non-African American GFR(CKD) 87.8 (60.0-200.0); Potassium 4.1 mmol/L (3.5-5.5); Total Bilirubin 1.4 mg/dL (0.30-1.20); Total Protein 6.6 g/dL (6.2-8.2)
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
[2022-10-07] MEDS: SODIUM CHLORIDE 0.9% 1,000 ML IV SCH ×2 (10:59→16:06)
[2022-10-07 11:31] LABS: Glucose,Whole Blood 130 mg/dL (70-110)
[2022-10-07 12:10] LABS: Basophils # (A) 0.05 X 10*3/uL (0.00-0.10); Basophils % (A) 0.5 %; Eosinophils # (A) 0.09 X 10*3/uL (0.04-0.35); Eosinophils % (A) 0.9 %; HGB 13.6 g/dL (12.0-15.0); Immature Grans, Automated 0.2 %; Lymphocytes # (A) 1.84 X 10*3/uL (0.90-5.00); Lymphocytes % (A) 17.9 %; MCH 32.5 pg (27.0-32.0); MCHC 33.2 g/dL (32.0-37.0); MCV 98.1 fL (80.0-97.0); Mean Platelet Volume 11.9 fL (9.5-12.2); Monocytes # (A) 0.69 X 10*3/uL (0.20-1.00); Monocytes % (A) 6.7 %; NRBC Per 100 WBC 0 /100 WBCS (0.0-0.0); Neutrophils # (A) 7.58 X 10*3/uL (1.80-7.70); Neutrophils % (A) 73.8 %; Platelet Count 140 X 10*3/uL (140-440); RBC 4.18 X 10*6/uL (4.10-5.20); RDW 15.3 % (11.5-14.5); WBC 10.27 X 10*3/uL (4.50-10.00)
--- NOTE | 2022-10-07 13:09 | P.PN ---
Subjective Progress Note Date: 10/07/22 patient is 72-year-old lady with past medical history significant for diabetes mellitus, hyperlipidemia, atrial fibrillation presented to the ER because of nausea and vomiting. Patient stated she was all right yesterday evening when she started having sudden onset of nausea and vomiting associated with diffuse pain that radiated from her chest down to her abdomin. Patient had multiple episodes of vomiting afterwards and was not able to keep anything down. Patient was also feeling as if she was skipping beats. Because of this nausea and vomiting she came to the ER. Laboratory studies were remarkable for a leukocytosis of 16 which is likely reactive. Lactic acid is elevated to 6.3 Patient does have a small metabolic acidosis with an intermediate anion gap which is likely secondary to lactic acidosis. Do not suspect DKA at this time his acetone is negative. Patient's blood sugar is 326. Troponin is undetectable. Patient had CTA chest abdominal and pelvis done, negative for any acute pathology. Patient was admitted to hospitalist service for further evaluation and treatment 10/07/22. Patient seen and examined. Nausea and vomiting has improved. Patient able to eat soft diet this morning. Still feels like she has some abdominal pain. Encouraged her to ambulate this morning. REVIEW OF SYSTEMS: CONSTITUTIONAL: No fever, no malaise,. CARDIOVASCULAR: No chest pain, no palpitations, no syncope. PULMONARY: No shortness of breath, no cough, GASTROINTESTINAL: No diarrhea, no nausea, no vomiting, no abdominal pain. NEUROLOGICAL: No headaches, no weakness, PHYSICAL EXAMINATION: GENERAL: The patient is alert and oriented x3, not in any acute distress. Well developed, well nourished. HEENT: Pupils are round and equally reacting to light. EOMI. No scleral icterus. No conjunctival pallor. Normocephalic, atraumatic. No pharyngeal erythema. No thyromegaly. CARDIOVASCULAR: S1 and S2 present. No murmurs, rubs, or gallops. PULMONARY: Chest is clear to auscultation, no wheezing or crackles. ABDOMEN: Soft, nontender, nondistended, normoactive bowel sounds. No palpable organomegaly. MUSCULOSKELETAL: No joint swelling or deformity. EXTREMITIES: No cyanosis, clubbing, or pedal edema. NEUROLOGICAL: Gross neurological examination did not reveal any focal deficits. SKIN: No rashes. Assessment and plan Nausea, vomiting, diarrhea Leukocytosis Lactic acidosis, resolved Diabetes, uncontrolled on admission with blood sugars greater than 400 Palpitations Chest pain Paroxysmal atrial fibrillation Mild nonobstructive coronary artery disease History of aortic stenosis with TAVR, April 2022 Hypertension Hyperlipidemia History of TIA Plan; Monitor electrolytes. Moderate renal functions. Monitor blood sugar levels Continue home meds Avoid metformin for now Cardiology evaluated the patient and recommended to increase dose of Norvasc 10 mg, no need for any ischemic workup at this time Objective - Vital Signs Vital signs: Vital Signs Temp 98.3 F 10/07/22 07:31 Pulse 61 10/07/22 07:31 Resp 16 10/07/22 07:31 BP 172/67 10/07/22 07:31 Pulse Ox 96 10/07/22 07:31 FiO2 Intake & Output 10/06/22 10/07/22 10/07/22 18:59 06:59 18:59 Intake Total 1080 Balance 1080 Weight 89.358 kg Intake: Oral 1080 Other: Voiding Method Toilet # Voids 2 3 - Labs CBC & Chem 7: 10/07/22 06:23 10/07/22 06:23 Labs: Abnormal Lab Results - Last 24 Hours (Table) 10/06/22 10/06/22 10/06/22 Range/Units 00:55 16:45 20:27 WBC (4.50-10.00) X 10*3/uL MCV (80.0-97.0) fL MCH (27.0-32.0) pg RDW (11.5-14.5) % Glucose (70-110) mg/dL POC Glucose (mg/dL) 155 H 145 H (70-110) mg/dL Hemoglobin A1c 8.1 H (0.0-6.0) % Total Bilirubin (0.30-1.20) mg/dL Albumin/Globulin Ratio (1.60-3.17) g/dL 10/07/22 10/07/22 10/07/22 Range/Units 06:23 06:23 06:36 WBC 10.27 H (4.50-10.00) X 10*3/uL MCV 98.1 H (80.0-97.0) fL MCH 32.5 H (27.0-32.0) pg RDW 15.3 H (11.5-14.5) % Glucose 158 H (70-110) mg/dL POC Glucose (mg/dL) 171 H (70-110) mg/dL Hemoglobin A1c (0.0-6.0) % Total Bilirubin 1.40 H (0.30-1.20) mg/dL Albumin/Globulin Ratio 1.54 L (1.60-3.17) g/dL 10/07/22 Range/Units 11:29 WBC (4.50-10.00) X 10*3/uL MCV (80.0-97.0) fL MCH (27.0-32.0) pg RDW (11.5-14.5) % Glucose (70-110) mg/dL POC Glucose (mg/dL) 130 H (70-110) mg/dL Hemoglobin A1c (0.0-6.0) % Total Bilirubin (0.30-1.20) mg/dL Albumin/Globulin Ratio (1.60-3.17) g/dL Microbiology - Last 24 Hours (Table) 10/06/22 02:15 Blood Culture - Preliminary Blood No Growth after 24 hours 10/06/22 02:00 Blood Culture - Preliminary Blood No Growth after 24 hours
[2022-10-07 13:23] VITALS: BMI 31.8
[2022-10-07] MEDS: ONDANSETRON 4 MG/2 ML VIAL IVP PRN (16:06)
[2022-10-07 16:23] LABS: Glucose,Whole Blood 162 mg/dL (70-110)
[2022-10-07] MEDS: ATORVASTATIN 40 MG TAB PO SCH (20:03)
[2022-10-07 22:05] LABS: Glucose,Whole Blood 126 mg/dL (70-110)
[2022-10-08 04:35] LABS: Glucose,Whole Blood 92 mg/dL (70-110)
[2022-10-08 06:26] LABS: Glucose,Whole Blood 80 mg/dL (70-110)
[2022-10-08] MEDS: INSULIN ASPART (NovoLOG) 100 UNIT/ML VIAL SQ SCH ×2 (06:38→11:59)
[2022-10-08 07:41] VITALS: BP 101/60; PULSE 77; RESP 17; TEMP 98.4
[2022-10-08] MEDS ORDERED: amLODIPine 10 MG TAB PO SCH (09:00)
[2022-10-08] MEDS ORDERED: amLODIPine 5 MG TAB PO SCH (09:00)
[2022-10-08] MEDS: CLOPIDOGREL 75 MG TAB PO SCH (09:11)
[2022-10-08] MEDS: APIXABAN 5 MG TAB PO SCH (09:11)
[2022-10-08] MEDS: metFORMIN 500 MG TAB PO SCH (09:12)
[2022-10-08] MEDS: SERTRALINE 50 MG TAB PO SCH (09:12)
[2022-10-08] MEDS: INSULIN NPH 100 UNIT/ML 10 ML VIAL SQ SCH (09:12)
--- NOTE | 2022-10-08 10:34 | P.PN ---
Subjective Progress Note Date: 10/08/22 HISTORY OF PRESENT ILLNESS: This is a 72-year-old female with a past medical history significant for paroxysmal atrial fibrillation, mild nonobstructive coronary artery disease, aor tic stenosis with TAVR in April 2022, hypertension, hyperlipidemia, and diabetes. Patient follows in the office with Dr. Houston. We have been asked to see the patient in consultation for chest pain. Patient examined at the bedside. Patient states she was at home and feeling in her normal state of health. She reports making dinner and shortly afterwards she began throwing up. She also reports having diarrhea. She reports feeling like her heart was skipping beats. She also reports having some pain in the middle of her chest after she threw up. She presented to the hospital for further evaluation. The patient was found to have elevated blood sugars over 400. She denied any fever or chills. Patient denies chest pain or pressure at the time of examination. Patient's blood pressure is slightly elevated this morning. * EKG reveals sinus mechanism with PACS. No signs of acute ischemia * Laboratory data: WBC 16.0. Hemoglobin 14.6. Platelet count 182. Sodium 136. Potassium 4.1. BUN 9. Creatinine 0.7. Lactic acid 6.3. Repeat 1.7. Troponin negative 4 * Current home cardiac medications include amlodipine 5 mg daily, Plavix 75 mg daily, Lipitor 40 mg at night, and Eliquis 5mg BID * Most recent echocardiogram obtained in May 2022 revealed ejection fraction 55%, transcatheter A-V prosthesis with normal function, mild mitral regurgitation, mild mitral stenosis, mild tricuspid regurgitation. * Cardiac catheterization history: January 2022 revealing mild nonobstructive coronary artery disease 10/08/2022 Patient examined this morning. Patient is sitting at the side of the bed. Patient denies chest pain or pressure. She denies shortness of breath. She den ies any further episodes of vomiting or diarrhea. Patients Norvasc was increased yesterday. However blood pressures are on the lower side this morning with a systolic in the low 100s. PHYSICAL EXAM: VITAL SIGNS: Reviewed. GENERAL: Well-developed in no acute distress. HEENT: Head is normocephalic. Pupils are equal, round. Sclerae anicteric. Mucous membranes of the mouth are moist. Neck supple. No JVD or thyromegaly LUNGS: Respirations even and unlabored. Lungs essentially clear to auscultation bilaterally. HEART: Regular rate and rhythm. S1 and S2 heard. Positive systolic murmur ABDOMEN: Soft. Nondistended. Nontender. EXTREMITIES: Normal range of motion. No clubbing or cyanosis. Peripheral pulses intact. No lower extremity edema NEUROLOGIC: Awake and alert. Oriented x 3. ASSESSMENT: Nausea, vomiting, diarrhea Leukocytosis Lactic acidosis, resolved Diabetes, uncontrolled on admission with blood sugars greater than 400 Palpitations Paroxysmal atrial fibrillation Mild nonobstructive coronary artery disease History of aortic stenosis with TAVR, April 2022 Hypertension Hyperlipidemia History of TIA PLAN: Continue current cardiac medications Decrease patient's Norvasc back to home dose of 5 mg daily Patient is stable from a cardiac stand point with no further inpatient cardiac recommendations We will sign off. Please reconsult if needed. Nurse practitioner note has been reviewed by physician. Signing provider agrees with the documented findings, assessment, and plan of care. Objective - Vital Signs Vital signs: Vital Signs Temp 98.4 F 10/08/22 07:40 Pulse 77 10/08/22 09:57 Resp 17 10/08/22 09:57 BP 101/60 10/08/22 07:40 Pulse Ox 97 10/08/22 07:40 FiO2 Intake & Output 10/07/22 10/08/22 10/08/22 18:59 06:59 18:59 Weight 89.358 kg Other: Voiding Method Toilet Toilet # Voids 3 3 - Labs CBC & Chem 7: 10/07/22 06:23 10/07/22 06:23 Labs: Abnormal Lab Results - Last 24 Hours (Table) 10/07/22 10/07/22 10/07/22 Range/Units 06:23 11:29 16:22 WBC 10.27 H (4.50-10.00) X 10*3/uL MCV 98.1 H (80.0-97.0) fL MCH 32.5 H (27.0-32.0) pg RDW 15.3 H (11.5-14.5) % POC Glucose (mg/dL) 130 H 162 H (70-110) mg/dL 10/07/22 Range/Units 22:04 WBC (4.50-10.00) X 10*3/uL MCV (80.0-97.0) fL MCH (27.0-32.0) pg RDW (11.5-14.5) % POC Glucose (mg/dL) 126 H (70-110) mg/dL Microbiology - Last 24 Hours (Table) 10/06/22 02:15 Blood Culture - Preliminary Blood No Growth after 48 hours 10/06/22 02:00 Blood Culture - Preliminary Blood No Growth after 48 hours
[2022-10-08 11:02] LABS: Potassium 4.1 mmol/L (3.5-5.1)
[2022-10-08 11:03] LABS: African American GFR (CKD) 89 (>60 ml/min/1.73 sqM); Anion Gap 10 mmol/L; Blood Urea Nitrogen 19 mg/dL (7-17); Calcium 8.8 mg/dL (8.4-10.2); Carbon Dioxide 23 mmol/L (22-30); Chloride 103 mmol/L (98-107); Glucose 111 mg/dL (74-99); Non-African American GFR(CKD) 78 (>60 ml/min/1.73 sqM); Sodium 136 mmol/L (137-145)
[2022-10-08 11:30] LABS: Glucose,Whole Blood 94 mg/dL (70-110)
--- NOTE | 2022-10-08 12:28 | P.DS ---
Providers Date of admission: 10/06/22 03:17 Expected date of discharge: 10/08/22 Attending physician: Reuben Cotton Primary care physician: [facility] Hospital Course: Discharge diagnoses; Nausea, vomiting, diarrhea resolved Leukocytosis Lactic acidosis, resolved Diabetes, uncontrolled on admission with blood sugars greater than 400 Palpitations Chest pain Paroxysmal atrial fibrillation Mild nonobstructive coronary artery disease History of aortic stenosis with TAVR, April 2022 Hypertension Hyperlipidemia History of TIA Plan; Norvasc dose was increased yesterday but since patient is hypotensive today, cardiology recommended discharging on her home dose Hospital course; patient is 72-year-old lady with past medical history significant for diabetes mellitus, hyperlipidemia, atrial fibrillation presented to the ER because of nausea and vomiting. Patient stated she was all right yesterday evening when she started having sudden onset of nausea and vomiting associated with diffuse pain that radiated from her chest down to her abdomin. Patient had multiple episodes of vomiting afterwards and was not able to keep anything down. Patient was also feeling as if she was skipping beats. Because of this nausea and vomiting she came to the ER. Laboratory studies were remarkable for a leukocytosis of 16 which is likely reactive. Lactic acid is elevated to 6.3 Patient does have a small metabolic acidosis with an intermediate anion gap which is likely secondary to lactic acidosis. Do not suspect DKA at this time his acetone is negative. Patient's blood sugar is 326. Troponin is undetectable. Patient had CTA chest abdominal and pelvis done, negative for any acute pathology. Patient was admitted to hospitalist service for further evaluation and treatment 10/07/22. Patient seen and examined. Nausea and vomiting has improved. Patient able to eat soft diet this morning. Still feels like she has some abdominal pain. Encouraged her to ambulate this morning. 10/08 Abdominal pain has resolved. No episodes of nausea and vomiting. Tolerating diet. Cardiology cleared patient for discharge PHYSICAL EXAMINATION: GENERAL: The patient is alert and oriented x3, not in any acute distress. Well developed, well nourished. HEENT: Pupils are round and equally reacting to light. EOMI. No scleral icterus. No conjunctival pallor. Normocephalic, atraumatic. No pharyngeal erythema. No thyromegaly. CARDIOVASCULAR: S1 and S2 present. No murmurs, rubs, or gallops. PULMONARY: Chest is clear to auscultation, no wheezing or crackles. ABDOMEN: Soft, nontender, nondistended, normoactive bowel sounds. No palpable organomegaly. MUSCULOSKELETAL: No joint swelling or deformity. EXTREMITIES: No cyanosis, clubbing, or pedal edema. NEUROLOGICAL: Gross neurological examination did not reveal any focal deficits. SKIN: No rashes. Patient Condition at Discharge: Good Plan - Discharge Summary Discharge Rx Participant: No New Discharge Prescriptions: Continue Multivit-Min/Iron/Folic/Lutein [Centrum Silver Women Tablet] 1 tab PO BID Insulin NPH Human Isophane [NovoLIN N] 30 units SQ DAILY Pramipexole Di-HCl [Mirapex] 0.125 mg PO HS Nitroglycerin Sl Tabs [Nitrostat] 0.4 mg SUBLINGUAL Q5M PRN PRN Reason: Chest Pain Fluticasone Nasal [place] [Flonase Nasal [place]] 2 spray EA NOSTRIL DAILY PRN PRN Reason: allergies Baclofen 10 mg PO HS Insulin NPH Human Isophane [NovoLIN N] 35 units SQ HS Clopidogrel [Plavix] 75 mg PO DAILY #30 tab Pantoprazole [Protonix] 40 mg PO AC-BID 15 Days #30 tab amLODIPine [Norvasc] 5 mg PO DAILY tab Albuterol Inhaler [Ventolin Hfa Inhaler] 2 puff INHALATION RT-QID PRN PRN Reason: Shortness Of Breath Sertraline [Zoloft] 50 mg PO DAILY Apixaban [Eliquis] 5 mg PO BID #60 tab Atorvastatin [Lipitor] 40 mg PO HS #30 tablet Acetaminophen Tab [Tylenol] 650 mg PO Q6HR PRN tab PRN Reason: Fever and/ or Mild Pain metFORMIN HCL [Glucophage] 1,000 mg PO BID #0 Mag Hydrox/Al Hydrox/Simeth [Maalox] 30 ml PO Q4HR PRN ml PRN Reason: Gi Upset Famotidine [Pepcid] 20 mg PO DAILY #30 tab Discharge Medication List Albuterol Inhaler [Ventolin Hfa Inhaler] 2 puff INHALATION RT-QID PRN 10/17/21 [History] Multivit-Min/Iron/Folic/Lutein [Centrum Silver Women Tablet] 1 tab PO BID 10/17/21 [History] Sertraline [Zoloft] 50 mg PO DAILY 10/18/21 [History] Apixaban [Eliquis] 5 mg PO BID #60 tab 10/21/21 [Rx] Atorvastatin [Lipitor] 40 mg PO HS #30 tablet 10/21/21 [Rx] Insulin NPH Human Isophane [NovoLIN N] 30 units SQ DAILY 01/16/22 [History] Pramipexole Di-HCl [Mirapex] 0.125 mg PO HS 01/17/22 [History] Acetaminophen Tab [Tylenol] 650 mg PO Q6HR PRN tab 01/21/22 [Rx] Baclofen 10 mg PO HS 02/06/22 [History] Fluticasone Nasal [place] [Flonase Nasal [place]] 2 spray EA NOSTRIL DAILY PRN 02/06/22 [History] Nitroglycerin Sl Tabs [Nitrostat] 0.4 mg SUBLINGUAL Q5M PRN 02/06/22 [History] Insulin NPH Human Isophane [NovoLIN N] 35 units SQ HS 03/31/22 [History] Clopidogrel [Plavix] 75 mg PO DAILY #30 tab 04/03/22 [Rx] metFORMIN HCL [Glucophage] 1,000 mg PO BID #0 04/03/22 [Rx] Famotidine [Pepcid] 20 mg PO DAILY #30 tab 07/12/22 [Rx] Mag Hydrox/Al Hydrox/Simeth [Maalox] 30 ml PO Q4HR PRN ml 07/12/22 [Rx] Pantoprazole [Protonix] 40 mg PO AC-BID 15 Days #30 tab 07/12/22 [Rx] amLODIPine [Norvasc] 5 mg PO DAILY tab 08/17/22 [Rx] Follow up Appointment(s)/Referral(s): [facility], [NON-STAFF] - 1-2 Days ([facility] will call you to schedule your in home nursing visits. ) Zhang Holguin MD [Primary Care Provider] - 1-2 days Discharge Disposition: HOME SELF-CARE
[2022-10-08 13:40] LABS: Basophils % (A) 1 %; Eosinophils # (A) 0.2 k/uL (0-0.7); Eosinophils % (A) 2 %; HGB 14.5 gm/dL (11.4-16.0); Lymphocytes % (A) 22 %; MCH 34.4 pg (25.0-35.0); MCHC 35.5 g/dL (31.0-37.0); Mean Platelet Volume 11.1; Monocytes # (A) 0.5 k/uL (0-1.0); Monocytes % (A) 6 %; Neutrophils # (A) 6.3 k/uL (1.3-7.7); Neutrophils % (A) 69 %; Platelet Count 146 k/uL (150-450); RBC 4.22 m/uL (3.80-5.40); RDW 14.9 % (11.5-15.5); WBC 9.1 k/uL (3.8-10.6)
[2022-10-08 15:06] LABS: African American GFR (CKD) 86 (>60 ml/min/1.73 sqM); Anion Gap 9 mmol/L; Blood Urea Nitrogen 21 mg/dL (7-17); Carbon Dioxide 26 mmol/L (22-30); Chloride 100 mmol/L (98-107); Glucose 120 mg/dL (74-99); Non-African American GFR(CKD) 74 (>60 ml/min/1.73 sqM); Potassium 3.9 mmol/L (3.5-5.1); Sodium 135 mmol/L (137-145)
== END 2022-10-08 14:12 | disposition home health service (06) | DRG 638 ==
LOC: EC 00:32 → 4SSUR 03:17
PROVIDERS: ADMIT Hospitalist; ATTEND Hospitalist
DX: E11.65 Type 2 diabetes mellitus with hyperglycemia (principal); E87.20 Acidosis, unspecified; D72.829 Elevated white blood cell count, unspecified; E11.40 Type 2 diabetes mellitus with diabetic neuropathy, unspecified; E11.51 Type 2 diabetes mellitus with diabetic peripheral angiopathy without gangrene; E78.5 Hyperlipidemia, unspecified; E86.0 Dehydration; F17.210 Nicotine dependence, cigarettes, uncomplicated; G25.81 Restless legs syndrome; M19.90 Unspecified osteoarthritis, unspecified site; I10 Essential (primary) hypertension; I25.10 Atherosclerotic heart disease of native coronary artery without angina pectoris; I35.0 Nonrheumatic aortic (valve) stenosis; I48.0 Paroxysmal atrial fibrillation; J44.9 Chronic obstructive pulmonary disease, unspecified; M21.372 Foot drop, left foot; R07.9 Chest pain, unspecified; Z79.01 Long term (current) use of anticoagulants; Z79.02 Long term (current) use of antithrombotics/antiplatelets; Z79.4 Long term (current) use of insulin; Z79.84 Long term (current) use of oral hypoglycemic drugs; Z79.899 Other long term (current) drug therapy; Z82.49 Family history of ischemic heart disease and other diseases of the circulatory system; Z83.3 Family history of diabetes mellitus; Z85.038 Personal history of other malignant neoplasm of large intestine; Z82.3 Family history of stroke; Z86.73 Personal history of transient ischemic attack (TIA), and cerebral infarction without residual deficits; Z90.710 Acquired absence of both cervix and uterus; Z85.41 Personal history of malignant neoplasm of cervix uteri; Z92.3 Personal history of irradiation; Z92.21 Personal history of antineoplastic chemotherapy; Z96.642 Presence of left artificial hip joint; Z90.49 Acquired absence of other specified parts of digestive tract; Z88.0 Allergy status to penicillin; Z88.2 Allergy status to sulfonamides; Z91.030 Bee allergy status; Z91.040 Latex allergy status
CPT/HCPCS: 36415; 71275; 74174; 80048; 80053; 81001; 82009; 82150; 83036; 83605; 83690; 84484; 85025; 85610; 85730; 87040; 93005; 96360; 96374; 96375; 96376; 99285

== ENCOUNTER 2023-01-22 14:06 | Inpatient (IN) | payer MEDICARE ==
[2023-01-22] MEDS ORDERED: SODIUM CHLORIDE 0.9% 500 ML 500 ML IV STA (14:51)
[2023-01-22] MEDS ORDERED: ONDANSETRON 4 MG/2 ML VIAL IM STA (14:51)
[2023-01-22] MEDS ORDERED: ACETAMINOPHEN IV (For NPO) 1,000 MG in EMPTY BAG 1 BAG IVPB STA (14:52)
[2023-01-22 15:19] LABS: Partial Thromboplastin Time 23.5 sec (22.0-30.0); Prothrombin Time 10.5 sec (9.0-12.0)
[2023-01-22 15:24] LABS: Anisocytosis Marked; HCT 25.1 % (34.0-46.0); Hypochromasia Moderate; MCH 24.7 pg (25.0-35.0); MCHC 30.6 g/dL (31.0-37.0); Mean Platelet Volume 12.7; Microcytosis Moderate; Platelet Count 243 k/uL (150-450); Poikilocytosis Slight; RBC 3.12 m/uL (3.80-5.40); RDW 25.3 % (11.5-15.5); WBC 10.5 k/uL (3.8-10.6)
[2023-01-22 15:25] LABS: HGB 7.7 gm/dL (11.4-16.0); MCV 80.6 fL (80.0-100.0)
[2023-01-22 15:26] LABS: ALT 32 U/L (4-34); AST 32 U/L (14-36); African American GFR (CKD) >90 (>60 ml/min/1.73 sqM); Albumin 3.2 g/dL (3.5-5.0); Alkaline Phosphatase 198 U/L (38-126); Anion Gap 10 mmol/L; Blood Urea Nitrogen 27 mg/dL (7-17); Calcium 8.2 mg/dL (8.4-10.2); Carbon Dioxide 20 mmol/L (22-30); Chloride 101 mmol/L (98-107); Glucose 249 mg/dL (74-99); Magnesium 1.6 mg/dL (1.6-2.3); Non-African American GFR(CKD) 83 (>60 ml/min/1.73 sqM); Potassium 4.5 mmol/L (3.5-5.1); Sodium 131 mmol/L (137-145); Total Bilirubin 1.2 mg/dL (0.2-1.3); Total Protein 6.2 g/dL (6.3-8.2)
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
--- NOTE | 2023-01-22 16:25 | CT ---
EXAMINATION: CT ABDOMEN AND PELVIS WITH IV CONTRAST DATE OF EXAMINATION: 05/08/2023. COMPARISON: 04/06/2023.. INDICATION: Rectal bleeding. PROCEDURE: Axial CT of the abdomen and pelvis was performed with contrast and sagittal and coronal reformatted images were performed. CT dose lowering techniques were used, to include: automated expos ure control, adjustment for patient size, and/or use of iterative reconstruction. 100 mL of Isovue-30 0 was given intravenously. FINDINGS: LOWER CHEST : The visualized lung bases are clear. There are no pleural or pericardial effusions. T here is heavy calcification of the mitral valve. ABDOMEN: Liver and Biliary system: Normal. Adrenal glands: Normal. Kidneys and ureters: There is a subcentimeter hypodensity in the upper pole the right kidney that is too small fully characterize. The kidneys otherwise appear unremarkable. Spleen: Normal. Pancreas: Normal. Gallbladder: Normal. Lymph nodes, Peritoneum and mesentery: There is no mesenteric or retroperitoneal lymphadenopathy. Gastrointestinal tract: There are no dilated loops of bowel or free intraperitoneal air. The appe ndix is not clearly seen with no secondary changes of appendicitis otherwise identified. There is mil d descending colonic diverticulosis and minimal diverticulitis involving the sigmoid region. Aorta/IVC: Significant vascular calcification throughout the abdominal aorta without evidence of an eurysmal dilation or dissection. IVC normal. Abdominal wall: Surgical changes are noted in the abdominal wall.. PELVIS: Fluid: There is no free fluid in the pelvis. Lymph Nodes: There is no pelvic or inguinal lymphadenopathy.. Urinary bladder: Normal. BONES: There is a left total hip arthroplasty.. ADDITIONAL SIGNIFICANT FINDINGS: None. IMPRESSION: 1. Mild sigmoid diverticulitis. 2. No bowel obstruction.
[2023-01-22 16:56] LABS: Band Neutrophils % 2 %; Basophils # (M) 0.11 k/uL (0-0.2); Eosinophils # (M) 0.21 k/uL (0-0.7); Lymphocytes # (M) 3.57 k/uL (1.0-4.8); Metamyelocytes # (M) 0.21 k/uL (0); Metamyelocytes % 2 %; Monocytes # (M) 0.42 k/uL (0-1.0); Myelocytes # (M) 0.11 k/uL (0); Myelocytes % 1 %; Neutrophils % (M) 56 %; Nucleated Red Blood Cells 0 /100 WBC (0-0); RBC Fragments Present; Total Cells Counted 200
[2023-01-22] MEDS ORDERED: SODIUM CHLORIDE 0.9% 1,000 ML IV ONE ×3 (16:58→21:06)
[2023-01-22 17:00] LABS: Toxic Granulation Present
[2023-01-22] MEDS ORDERED: METOCLOPRAMIDE 5 MG/ML 2 ML VIAL IVP STA (17:48)
[2023-01-22] MEDS ORDERED: metroNIDAZOLE-NS PMX 500 MG in SALINE 1 100ML.BAG IVPB STA (20:41)
[2023-01-22] MEDS ORDERED: LEVOFLOXACIN 500MG-D5W PMX 500 MG in DEXTROSE/WATER 1 100ML.BAG IVPB STA (20:41)
[2023-01-22] MEDS ORDERED: NALOXONE 0.4 MG/ML 1 ML VIAL IV PRN (20:43)
[2023-01-22 21:05] LABS: Anisocytosis Marked; Hypochromasia Moderate; MCH 24.5 pg (25.0-35.0); MCHC 30.6 g/dL (31.0-37.0); MCV 80.2 fL (80.0-100.0); Mean Platelet Volume 8.1; Microcytosis Moderate; Platelet Count 155 k/uL (150-450); Poikilocytosis Slight; RBC 2.48 m/uL (3.80-5.40); WBC 7.3 k/uL (3.8-10.6)
[2023-01-22 21:19] LABS: HGB 6.1 gm/dL (11.4-16.0); RDW 25.3 % (11.5-15.5)
[2023-01-22 21:20] LABS: HCT 19.9 % (34.0-46.0)
[2023-01-22 22:59] LABS: Band Neutrophils % 1 %; Basophils # (M) 0.07 k/uL (0-0.2); Eosinophils # (M) 0.15 k/uL (0-0.7); Lymphocytes # (M) 3.29 k/uL (1.0-4.8); Monocytes # (M) 0.22 k/uL (0-1.0); Neutrophils % (M) 49 %
[2023-01-22 23:04] LABS: Anisocytosis (M) Present; Blast Cells # (M) 0.15 k/uL (0); Nucleated Red Blood Cells 0 /100 WBC (0-0); Poikilocytosis (M) Present; Total Cells Counted 200
[2023-01-23] MEDS: SODIUM CHLORIDE 0.9% 1,000 ML IV SCH ×3 (00:10→18:48)
[2023-01-23] MEDS: PANTOPRAZOLE 40 MG/10 ML VIAL IVP SCH ×4 (01:27→20:44)
[2023-01-23] MEDS: ATORVASTATIN 40 MG TAB PO SCH (01:27)
[2023-01-23 01:32] LABS: Anisocytosis Moderate; HCT 22.4 % (34.0-46.0); HGB 7.2 gm/dL (11.4-16.0); Hypochromasia Moderate; MCV 81.4 fL (80.0-100.0); Microcytosis Moderate; Platelet Count 179 k/uL (150-450); Poikilocytosis Moderate; RBC 2.75 m/uL (3.80-5.40); RDW 23.7 % (11.5-15.5); WBC 8.5 k/uL (3.8-10.6)
[2023-01-23 02:04] LABS: Anisocytosis (M) Present; Band Neutrophils % 2 %; Basophils # (M) 0.17 k/uL (0-0.2); Blast Cells # (M) 0.17 k/uL (0); Eosinophils # (M) 0.26 k/uL (0-0.7); Large Platelets Present; Lymphocytes # (M) 3.49 k/uL (1.0-4.8); Metamyelocytes # (M) 0.09 k/uL (0); Metamyelocytes % 1 %; Monocytes # (M) 0.17 k/uL (0-1.0); Neutrophils % (M) 49 %; Nucleated Red Blood Cells 0 /100 WBC (0-0); Poikilocytosis (M) Present; Polychromasia Present; Total Cells Counted 200
[2023-01-23 03:36] LABS: Appearance,Urine Clear (Clear); Bilirubin,Urine Negative (Negative); Blood,Urine Negative (Negative); Color,Urine Yellow; Glucose,Urine (UA) Negative (Negative); Ketones,Urine Negative (Negative); Leukocyte Esterase,Urine Negative (Negative); Nitrite,Urine Negative (Negative); PH, Urine 5.5 (5.0-8.0); Protein,Urine Negative (Negative); Specific Gravity,Urine 1.042 (1.001-1.035); Urobilinogen,Urine <2.0 mg/dL (<2.0)
[2023-01-23 06:17] LABS: Glucose,Whole Blood 97 mg/dL (70-110)
[2023-01-23 06:55] LABS: ALT 27 U/L (4-34); AST 28 U/L (14-36); African American GFR (CKD) >90 (>60 ml/min/1.73 sqM); Albumin 2.5 g/dL (3.5-5.0); Alkaline Phosphatase 144 U/L (38-126); Anion Gap 6 mmol/L; Blood Urea Nitrogen 19 mg/dL (7-17); Calcium 7.4 mg/dL (8.4-10.2); Carbon Dioxide 20 mmol/L (22-30); Chloride 111 mmol/L (98-107); Glucose 81 mg/dL (74-99); Lipase 31 U/L (23-300); Magnesium 1.7 mg/dL (1.6-2.3); Non-African American GFR(CKD) >90 (>60 ml/min/1.73 sqM); Sodium 137 mmol/L (137-145); Total Bilirubin 0.8 mg/dL (0.2-1.3)
[2023-01-23 06:57] LABS: Prothrombin Time 10.6 sec (9.0-12.0)
[2023-01-23 07:08] LABS: Anisocytosis Moderate; HCT 23.3 % (34.0-46.0); HGB 7.4 gm/dL (11.4-16.0); Hypochromasia Moderate; MCH 25.7 pg (25.0-35.0); MCHC 31.8 g/dL (31.0-37.0); MCV 80.7 fL (80.0-100.0); Mean Platelet Volume 8.3; Microcytosis Moderate; Platelet Count 145 k/uL (150-450); Poikilocytosis Moderate; RBC 2.88 m/uL (3.80-5.40); RDW 23.9 % (11.5-15.5); WBC 7.6 k/uL (3.8-10.6)
[2023-01-23 08:44] LABS: Band Neutrophils % 6 %; Eosinophils # (M) 0.38 k/uL (0-0.7); Lymphocytes # (M) 2.66 k/uL (1.0-4.8); Monocytes # (M) 0.38 k/uL (0-1.0); Neutrophils % (M) 49 %; Nucleated Red Blood Cells 0 /100 WBC (0-0); Total Cells Counted 100
[2023-01-23] MEDS: FERROUS SULFATE 325 MG TAB PO SCH ×2 (10:43→17:49)
[2023-01-23] MEDS: ACETAMINOPHEN TAB 325 MG TAB PO PRN ×2 (10:48→20:44)
[2023-01-23] MEDS ORDERED: LEVOFLOXACIN 500MG-D5W PMX 500 MG in DEXTROSE/WATER 1 100ML.BAG IVPB SCH (11:00)
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
[2023-01-23 11:35] LABS: Glucose,Whole Blood 150 mg/dL (70-110)
[2023-01-23] MEDS: metroNIDAZOLE-NS PMX 500 MG in SALINE 1 100ML.BAG IVPB SCH ×2 (12:54→17:49)
[2023-01-23] MEDS ORDERED: SODIUM CHLORIDE 0.9% 1,000 ML IV ONE ×2 (13:55)
[2023-01-23] MEDS ORDERED: LEVOFLOXACIN 250MG-D5W PMX 250 MG in DEXTROSE/WATER 1 50ML.BAG IVPB STA (13:59)
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
[2023-01-23] MEDS: MIDODRINE 5 MG TAB PO SCH ×2 (15:07→17:49)
[2023-01-23] MEDS ORDERED: LIDOCAINE 1% (10MG/ML) FOR IV START INTRADERMA PRN (16:34)
[2023-01-23 16:35] LABS: Glucose,Whole Blood 179 mg/dL (70-110)
[2023-01-23] MEDS: LACTATED RINGERS 1,000 ML IV SCH (17:04)
[2023-01-23 18:55] LABS: Anisocytosis Marked; HCT 25.1 % (34.0-46.0); HGB 7.8 gm/dL (11.4-16.0); Hypochromasia Moderate; MCHC 30.9 g/dL (31.0-37.0); MCV 80.8 fL (80.0-100.0); Mean Platelet Volume 8.5; Microcytosis Moderate; Platelet Count 181 k/uL (150-450); Poikilocytosis Moderate; RBC 3.11 m/uL (3.80-5.40); RDW 24.1 % (11.5-15.5); WBC 10.2 k/uL (3.8-10.6)
[2023-01-23 20:08] LABS: Glucose,Whole Blood 169 mg/dL (70-110)
[2023-01-24] MEDS: metroNIDAZOLE-NS PMX 500 MG in SALINE 1 100ML.BAG IVPB SCH ×3 (01:09→17:03)
[2023-01-24] MEDS: SODIUM CHLORIDE 0.9% 1,000 ML IV SCH ×3 (04:35→17:03)
[2023-01-24 06:21] LABS: Glucose,Whole Blood 138 mg/dL (70-110)
[2023-01-24] MEDS: MIDODRINE 5 MG TAB PO SCH ×3 (06:36→17:04)
[2023-01-24] MEDS: FERROUS SULFATE 325 MG TAB PO SCH ×2 (06:36→17:04)
[2023-01-24 07:54] LABS: African American GFR (CKD) >90 (>60 ml/min/1.73 sqM); Anion Gap 9 mmol/L; Blood Urea Nitrogen 12 mg/dL (7-17); Calcium 7.8 mg/dL (8.4-10.2); Carbon Dioxide 18 mmol/L (22-30); Chloride 111 mmol/L (98-107); Glucose 118 mg/dL (74-99); Non-African American GFR(CKD) >90 (>60 ml/min/1.73 sqM); Potassium 4.3 mmol/L (3.5-5.1); Sodium 138 mmol/L (137-145)
[2023-01-24 08:11] LABS: Anisocytosis Marked; HCT 24.1 % (34.0-46.0); HGB 7.5 gm/dL (11.4-16.0); Hypochromasia Moderate; MCH 25.2 pg (25.0-35.0); MCV 81.3 fL (80.0-100.0); Mean Platelet Volume 13.2; Microcytosis Moderate; Poikilocytosis Moderate; RBC 2.96 m/uL (3.80-5.40); RDW 24.1 % (11.5-15.5)
[2023-01-24] MEDS: ALBUTEROL HFA INHALER INHALATION PRN (08:19)
[2023-01-24] MEDS: PANTOPRAZOLE 40 MG/10 ML VIAL IVP SCH ×2 (08:19→21:07)
[2023-01-24 08:24] LABS: Basophils # (M) 0.11 k/uL (0-0.2); Total Cells Counted 200
[2023-01-24 08:26] LABS: Polychromasia Present
[2023-01-24 08:27] LABS: Ovalocytes Present
[2023-01-24] MEDS: LEVOFLOXACIN 750MG-D5W PMX 750 MG in DEXTROSE/WATER 1 150ML.BAG IVPB SCH (11:32)
[2023-01-24 12:16] LABS: Glucose,Whole Blood 207 mg/dL (70-110)
--- NOTE | 2023-01-24 13:18 | P.PN ---
Subjective This is a pleasant 72 years old female with multiple medical problems including Atrial Fibrillation, Coronary Artery Disease (CAD), Cancer, COPD, CVA/TIA, Diabetes Mellitus, GERD/Reflux, Hyperlipidemia, Hypertension, Pneumonia, Sleep Apnea/CPAP/BIPAP, Syncope she was discharged from this facility one month ago forpossible GI bleed, TIA, syncope and bronchitis. She was visiting her surgeon yesterday in the outpatient setting and she was referred to emergency room, Patient states that since last Thursday about one week ago she noticed she was not eating well and she had only one piece of pizza because of that. She started having blood per rectum, she will not stretch blood with clots filled the toilet about 3-4 times a day, also she was feeling more lethargic and weak and she slept for 48 hours as she described, complaining OF from abdominal pain mainly in the lower abdomen on the right side since Thursday about 05/25 like colic comes and goes. Also patient has been vomiting 2-3 times per day but there is no blood. Also patient with poor appetite. Visiting nurse noticed that her blood pressure was on the low side about 80/40 so she decided to go and see her surgeon before here for her to the emergency room. However when I saw the patient this morning she was fully awake and oriented, she looks comfortable pleasant and not in distress, she was complaining only from minimal abdominal pain. On admission she had a fever of 101, she was hypotensive and severely anemic her blood pressure 1000 as79/45, was fluctuation up to 113/45,this morning her blood pressure was 91/46, she is saturating 93% on 3 L oxygen. hemoglobin on admission was 7.7 and 6.1, compared to 9.8 last month for discharge. She received 1 unit of blood transfusion and her hemoglobin this morning is 7.4.INR is normal mildly elevated lactic acid came back to normal. Basic metabolic panel and liver enzymes were unremarkable this morning. urine analysis is negative and multiple viruses are undetected including covid ,influenza and RSV she has CT of the abdomen and pelvis with IV contrast showing no bowel obstruction with mild sigmoid diverticulitis she received 2 L of normal saline and antibiotics with Flagyl and Levaquin. echocardiogram from 04/03/2022 showing ejection fraction of 55-60% 01/24/2022 Patient feels better, she feels stronger, she was walking the hallway. Her blood pressure still borderline but is improving slowly and gradually while she is on IV fluids also she is on midodrine which she thinks is helping her She still reports some blood in his stool but it's mild Hemoglobin is stable about 7.5. She remains on Levaquin and IV Flagyl and normal saline at 1:30 milliliters per hour Check labs in the morning. Currently patient is placed on liquid diets Objective - Vital Signs Vital signs: Vital Signs Temp 97.9 F 01/24/23 11:36 Pulse 74 01/24/23 11:36 Resp 18 01/24/23 11:36 BP 94/55 01/24/23 11:36 Pulse Ox 95 01/24/23 11:36 FiO2 Intake & Output 01/23/23 01/24/23 01/24/23 18:59 06:59 18:59 Intake Total 908 240 128 Output Total 400 1100 300 Balance 508 -860 -172 Intake: IV 10 10 Invasive Line 1 10 10 Oral 898 240 118 Output: Urine 400 1100 300 Other: Voiding Method Toilet Toilet Toilet # Voids 1 # Bowel Movements 0 1 - Exam GENERAL: The patient is alert and oriented x3, not in any acute distress. Well developed, well nourished. HEENT: Pupils are round and equally reacting to light. EOMI. No scleral icterus. No conjunctival pallor. Normocephalic, atraumatic. No pharyngeal erythema. No thyromegaly. CARDIOVASCULAR: S1 and S2 present. No murmurs, rubs, or gallops. PULMONARY: Chest is clear to auscultation, no wheezing or crackles. -ABDOMEN: Soft, right lower abdominal tenderness, nondistended, normoactive bowel sounds. No palpable organomegaly. MUSCULOSKELETAL: No joint swelling or deformity. EXTREMITIES: No cyanosis, clubbing, or pedal edema. NEUROLOGICAL: Gross neurological examination did not reveal any focal deficits. SKIN: No rashes. no petechiae. - Labs CBC & Chem 7: 01/24/23 07:22 01/24/23 07:22 Labs: Abnormal Lab Results - Last 24 Hours (Table) 01/23/23 01/23/23 01/23/23 Range/Units 16:33 18:38 20:06 RBC 3.11 L (3.80-5.40) m/uL Hgb 7.8 L (11.4-16.0) gm/dL Hct 25.1 L (34.0-46.0) % MCHC 30.9 L (31.0-37.0) g/dL RDW 24.1 H (11.5-15.5) % Chloride (98-107) mmol/L Carbon Dioxide (22-30) mmol/L Glucose (74-99) mg/dL POC Glucose (mg/dL) 179 H 169 H (70-110) mg/dL Calcium (8.4-10.2) mg/dL 01/24/23 01/24/23 01/24/23 Range/Units 06:19 07:22 07:22 RBC 2.96 L (3.80-5.40) m/uL Hgb 7.5 L (11.4-16.0) gm/dL Hct 24.1 L (34.0-46.0) % MCHC (31.0-37.0) g/dL RDW 24.1 H (11.5-15.5) % Chloride 111 H (98-107) mmol/L Carbon Dioxide 18 L (22-30) mmol/L Glucose 118 H (74-99) mg/dL POC Glucose (mg/dL) 138 H (70-110) mg/dL Calcium 7.8 L (8.4-10.2) mg/dL 01/24/23 Range/Units 12:06 RBC (3.80-5.40) m/uL Hgb (11.4-16.0) gm/dL Hct (34.0-46.0) % MCHC (31.0-37.0) g/dL RDW (11.5-15.5) % Chloride (98-107) mmol/L Carbon Dioxide (22-30) mmol/L Glucose (74-99) mg/dL POC Glucose (mg/dL) 207 H (70-110) mg/dL Calcium (8.4-10.2) mg/dL Microbiology - Last 24 Hours (Table) 01/22/23 20:45 Blood Culture - Preliminary Blood No Growth after 24 hours
[2023-01-24] MEDS: PROMETHAZINE 25 MG TAB PO PRN (14:44)
[2023-01-24] MEDS ORDERED: PROMETHAZINE 25 MG TAB PO STA (15:25)
[2023-01-24 17:03] LABS: Glucose,Whole Blood 169 mg/dL (70-110)
[2023-01-24] MEDS: LACTATED RINGERS 1,000 ML IV SCH (17:59)
--- NOTE | 2023-01-24 19:52 | P.PN ---
Subjective Progress Note Date: 01/24/23 CHIEF COMPLAINT: Gastrointestinal bleeding HISTORY OF PRESENT ILLNESS: The patient is a 72-year-old female with gastrointestinal bleeding. Per discussion with the nurse, she had emesis without blood. Patient had 2 bloody bowel movements today. No reports of abdominal pain. ROS: No fevers or chills. No new chest pain. No productive sputum. Has chronic atrial fibrillation anticoagulant PHYSICAL EXAM: VITAL SIGNS: Reviewed CONSTITUTIONAL: Well developed and in no acute distress. EYES: Conjuctivae without sclera icterus. Extraocular movements grossly intact. HEAD, EARS, NOSE, THROAT: Moist buccal mucosa. Head is atraumatic, normocephalic. Hears conversational speech. No nasal drainage. RESPIRATORY: Non-labored respirations and equal bilateral excursions. CARDIOVASCULAR: Palpable 2+ radial pulses. ABDOMEN: No peritonitis. MUSCULOSKELETAL: No gross deformity of the lower extremities noted. No clubbing. No cyanosis. SKIN: Good skin turgor. Well perfused. NEUROLOGIC: Cranial nerves II through XII grossly intact. No focal or lateralizing signs. PSYCH: Appropriate affect. Alert and oriented to person, place and time. CLINICAL LABS: Reviewed. Hemoglobin down 7.8-7.5, anemia. WBC normal 10.5. ASSESSMENT: 1. Gastrointestinal bleeding with anemia 2. Chronic atrial fibrillation 3. Chronic anticoagulant use PLAN: 1. Transfusion as needed for symptomatic anemia 2. Recommend antibiotics for treatment of diverticulosis/diverticulitis Objective - Vital Signs Vital signs: Vital Signs Temp 97.6 F 01/24/23 16:23 Pulse 85 01/24/23 16:23 Resp 18 01/24/23 16:23 BP 122/65 01/24/23 16:23 Pulse Ox 96 01/24/23 16:23 FiO2 Intake & Output 01/24/23 01/24/23 01/25/23 06:59 18:59 07:59 Intake Total 240 1868 Output Total 1100 602 Balance -860 1266 Intake: IV 20 Invasive Line 1 20 Intake, IV Titration 1100 Amount Levofloxacin 750Mg-D5w 100 Pmx 750 mg In Dextrose/ Water 1 150ml.bag @ 100 mls/hr IVPB Q24H ALIYAH Rx#: [id number] metroNIDAZOLE-NS PMX 500 1000 mg In Saline 1 100ml.bag @ 100 mls/hr IVPB Q8HR ALIYAH Rx#:[id number] Oral 240 748 Output: Urine 1100 302 Emesis 300 Other: Voiding Method Toilet Toilet # Voids 1 # Bowel Movements 1 1 - Labs CBC & Chem 7: 01/24/23 07:22 01/24/23 07:22 Labs: Abnormal Lab Results - Last 24 Hours (Table) 01/23/23 01/24/23 01/24/23 Range/Units 20:06 06:19 07:22 RBC 2.96 L (3.80-5.40) m/uL Hgb 7.5 L (11.4-16.0) gm/dL Hct 24.1 L (34.0-46.0) % RDW 24.1 H (11.5-15.5) % Chloride (98-107) mmol/L Carbon Dioxide (22-30) mmol/L Glucose (74-99) mg/dL POC Glucose (mg/dL) 169 H 138 H (70-110) mg/dL Calcium (8.4-10.2) mg/dL 01/24/23 01/24/23 01/24/23 Range/Units 07:22 12:06 16:55 RBC (3.80-5.40) m/uL Hgb (11.4-16.0) gm/dL Hct (34.0-46.0) % RDW (11.5-15.5) % Chloride 111 H (98-107) mmol/L Carbon Dioxide 18 L (22-30) mmol/L Glucose 118 H (74-99) mg/dL POC Glucose (mg/dL) 207 H 169 H (70-110) mg/dL Calcium 7.8 L (8.4-10.2) mg/dL Microbiology - Last 24 Hours (Table) 01/22/23 20:45 Blood Culture - Preliminary Blood No Growth after 24 hours
[2023-01-24 20:21] LABS: Glucose,Whole Blood 143 mg/dL (70-110)
[2023-01-24] MEDS: ATORVASTATIN 40 MG TAB PO SCH (21:07)
[2023-01-25] MEDS: metroNIDAZOLE-NS PMX 500 MG in SALINE 1 100ML.BAG IVPB SCH ×3 (00:02→18:20)
[2023-01-25 05:59] LABS: Glucose,Whole Blood 159 mg/dL (70-110)
[2023-01-25] MEDS: SODIUM CHLORIDE 0.9% 1,000 ML IV SCH ×3 (06:08→21:12)
[2023-01-25] MEDS: MIDODRINE 5 MG TAB PO SCH ×2 (06:25→18:21)
[2023-01-25] MEDS: FERROUS SULFATE 325 MG TAB PO SCH ×2 (06:25→18:21)
[2023-01-25] MEDS: PROMETHAZINE 25 MG TAB PO PRN ×2 (07:56→08:50)
[2023-01-25] MEDS: ALBUTEROL HFA INHALER INHALATION PRN (08:25)
[2023-01-25] MEDS ORDERED: PEG 3350 (236 GM/BTL) + LYTES 4,000 ML BOTTLE PO ONE (09:00)
--- NOTE | 2023-01-25 09:44 | XR ---
EXAMINATION TYPE: XR KUB portable DATE OF EXAM: 01/25/2023 9:21 AM INDICATION: Patient age:Female; 72 years old; Reason for study: vomiting; COMPARISON: 01/22/2023. TECHNIQUE: One radiographic view of the abdomen was obtained. FINDINGS: Left hip arthroplasty. Surgical clips in the left lower quadrant. Degeneration changes of t he right hip with osteophyte formation and joint space narrowing. The bowel gas pattern is nonspecifi c without dilated loops of small or large bowel. There is no evidence for organomegaly or pneumoperit oneum. The osseous structures are intact. No abnormal calcifications are present. Fecal material an d gas are demonstrated throughout the colon and rectum. IMPRESSION: Nonspecific bowel gas pattern without radiographic evidence for acute process.
[2023-01-25] MEDS: PANTOPRAZOLE 40 MG/10 ML VIAL IVP SCH ×2 (09:59→21:08)
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
[2023-01-25 11:58] LABS: Glucose,Whole Blood 177 mg/dL (70-110)
[2023-01-25] MEDS: LEVOFLOXACIN 750MG-D5W PMX 750 MG in DEXTROSE/WATER 1 150ML.BAG IVPB SCH (15:53)
[2023-01-25 16:40] LABS: Glucose,Whole Blood 168 mg/dL (70-110)
[2023-01-25] MEDS: LACTATED RINGERS 1,000 ML IV SCH (18:25)
--- NOTE | 2023-01-25 20:31 | P.PN ---
Subjective Progress Note Date: 01/25/23 CHIEF COMPLAINT: Gastrointestinal bleeding HISTORY OF PRESENT ILLNESS: The patient is a 72-year-old female with gastrointestinal bleeding. She reports this her second episode. No abdominal pain. She had blood bowel movements in the morning. ROS: No fevers or chills. No new chest pain. No productive sputum. Has chronic atrial fibrillation anticoagulant PHYSICAL EXAM: VITAL SIGNS: Reviewed CONSTITUTIONAL: Well developed and in no acute distress. EYES: Conjuctivae without sclera icterus. Extraocular movements grossly intact. HEAD, EARS, NOSE, THROAT: Moist buccal mucosa. Head is atraumatic, normocephalic. Hears conversational speech. No nasal drainage. RESPIRATORY: Non-labored respirations and equal bilateral excursions. CARDIOVASCULAR: Palpable 2+ radial pulses. ABDOMEN: No peritonitis. MUSCULOSKELETAL: No gross deformity of the lower extremities noted. No clubbing. No cyanosis. SKIN: Good skin turgor. Well perfused. NEUROLOGIC: Cranial nerves II through XII grossly intact. No focal or lateralizing signs. PSYCH: Appropriate affect. Alert and oriented to person, place and time. CLINICAL LABS: Reviewed. Hemoglobin 7.8 to 7.5, yesterday with anemia. ASSESSMENT: 1. Gastrointestinal bleeding with anemia 2. Chronic atrial fibrillation 3. Chronic anticoagulant use PLAN: 1. Recommend colonoscopy. 2. She is elevated risk for complication. Objective - Vital Signs Vital signs: Vital Signs Temp 97.8 F 01/25/23 07:55 Pulse 80 01/25/23 15:52 Resp 18 01/25/23 15:52 BP 103/46 01/25/23 15:52 Pulse Ox 90 L 01/25/23 15:52 FiO2 21 01/25/23 08:26 Intake & Output 01/25/23 01/25/23 01/26/23 06:59 18:59 06:59 Intake Total 250 Output Total 3 Balance 247 Intake: IV 10 Invasive Line 1 10 Oral 240 Output: Urine 2 Urine/Stool Mix 1 Other: Voiding Method Toilet # Voids # Bowel Movements 4 - Labs CBC & Chem 7: 01/24/23 07:22 01/24/23 07:22 Labs: Abnormal Lab Results - Last 24 Hours (Table) 01/24/23 01/25/23 01/25/23 Range/Units 20:20 05:56 11:57 POC Glucose (mg/dL) 143 H 159 H 177 H (70-110) mg/dL 01/25/23 Range/Units 16:34 POC Glucose (mg/dL) 168 H (70-110) mg/dL Microbiology - Last 24 Hours (Table) 01/22/23 20:45 Blood Culture - Preliminary Blood No Growth after 48 hours
[2023-01-25 20:36] LABS: Glucose,Whole Blood 145 mg/dL (70-110)
[2023-01-25] MEDS: ATORVASTATIN 40 MG TAB PO SCH (21:07)
[2023-01-26] MEDS: metroNIDAZOLE-NS PMX 500 MG in SALINE 1 100ML.BAG IVPB SCH ×3 (00:40→16:25)
[2023-01-26] MEDS: SODIUM CHLORIDE 0.9% 1,000 ML IV SCH ×2 (02:24→15:29)
[2023-01-26 06:26] LABS: Glucose,Whole Blood 162 mg/dL (70-110)
[2023-01-26 06:39] LABS: Anisocytosis Marked; HCT 24.2 % (34.0-46.0); HGB 7.7 gm/dL (11.4-16.0); Hypochromasia Moderate; MCH 25.5 pg (25.0-35.0); MCHC 31.8 g/dL (31.0-37.0); MCV 80.1 fL (80.0-100.0); Microcytosis Moderate; Platelet Count 317 k/uL (150-450); Poikilocytosis Slight; RBC 3.01 m/uL (3.80-5.40); RDW 24.1 % (11.5-15.5); WBC 14.7 k/uL (3.8-10.6)
[2023-01-26 06:42] LABS: African American GFR (CKD) >90 (>60 ml/min/1.73 sqM); Anion Gap 10 mmol/L; Blood Urea Nitrogen 6 mg/dL (7-17); Calcium 7.7 mg/dL (8.4-10.2); Carbon Dioxide 19 mmol/L (22-30); Chloride 107 mmol/L (98-107); Glucose 131 mg/dL (74-99); Non-African American GFR(CKD) >90 (>60 ml/min/1.73 sqM); Potassium 3.9 mmol/L (3.5-5.1); Sodium 136 mmol/L (137-145)
[2023-01-26] MEDS: FERROUS SULFATE 325 MG TAB PO SCH ×2 (06:52→16:25)
[2023-01-26] MEDS: MIDODRINE 5 MG TAB PO SCH ×2 (06:57→16:25)
[2023-01-26 07:22] LABS: Band Neutrophils % 7 %; Blast Cells # (M) 0.59 k/uL (0); Eosinophils # (M) 0.59 k/uL (0-0.7); Lymphocytes # (M) 4.26 k/uL (1.0-4.8); Metamyelocytes # (M) 0.15 k/uL (0); Metamyelocytes % 1 %; Monocytes # (M) 0.29 k/uL (0-1.0); Neutrophils % (M) 54 %; Nucleated Red Blood Cells 0 /100 WBC (0-0); Polychromasia Present; Total Cells Counted 200
[2023-01-26 07:23] LABS: Anisocytosis (M) Present; Poikilocytosis (M) Present
[2023-01-26] MEDS: FLUTICASONE 50MCG/SPRAY NASAL 16GM EA NOSTRIL PRN (10:05)
[2023-01-26] MEDS: PANTOPRAZOLE 40 MG/10 ML VIAL IVP SCH ×2 (10:05→20:59)
[2023-01-26 11:44] LABS: Glucose,Whole Blood 157 mg/dL (70-110)
[2023-01-26] MEDS: ALBUTEROL HFA INHALER INHALATION PRN ×2 (11:44→21:54)
[2023-01-26] MEDS: LEVOFLOXACIN 750MG-D5W PMX 750 MG in DEXTROSE/WATER 1 150ML.BAG IVPB SCH (12:09)
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
[2023-01-26] MEDS ORDERED: PROPOFOL 10 MG/ML 20 ML VIAL IV ONE (15:41)
[2023-01-26] MEDS ORDERED: LIDOCAINE 2% INJ 20 MG/ML (2 ML VIAL) ONE (15:41)
[2023-01-26] MEDS ORDERED: SODIUM CHLORIDE 0.9% 500 ML 500 ML IV ONE ×2 (15:43)
[2023-01-26 15:48] LABS: Band Neutrophils % 5 %; Blast Cells # (M) 0.42 k/uL (0); Metamyelocytes # (M) 0.42 k/uL (0); Metamyelocytes % 4 %; Monocytes # (M) 0.21 k/uL (0-1.0); Myelocytes % 3 %; Neutrophils % (M) 54 %; Nucleated Red Blood Cells 1 /100 WBC (0-0)
[2023-01-26 15:49] LABS: Eosinophils # (M) 0.31 k/uL (0-0.7); Myelocytes # (M) 0.31 k/uL (0); WBC 10.4 k/uL (3.8-10.6)
[2023-01-26 15:50] LABS: Platelet Count 205 k/uL (150-450)
[2023-01-26 15:53] LABS: Crenated RBC Present
--- NOTE | 2023-01-26 16:02 | P.OP ---
Date of Procedure: 01/26/23 Preoperative Diagnosis: GI bleed Postoperative Diagnosis: Diverticulosis Procedure(s) Performed: Colonoscopy Anesthesia: MAC Surgeon: Alvin Sierra Pathology: none sent Condition: stable Disposition: PACU Description of Procedure: The patient's placed on the endoscopy table in the lateral position. She received IV sedation. Digital rectal exam was performed which revealed small amount of bloody stool in the exam finger. The possible colonoscope was then placed patient anus and passed with colon. The ileocecal valve was visually is. There was some blood-tinged stool seen throughout the colon. Cecum appeared normal. In the right colon was a few diverticula. Scope was then brought back and the remainder the ascending colon was normal except for a few diverticula. In the descending colon there is extensive diverticular changes. Scope was then brought back and sigmoid colon were noted again. Scope back the rectum this appeared normal. Scope withdrawn. There is no evidence of any active GI bleed. Presumed patient had bleeding from diverticular disease.
[2023-01-26 16:26] LABS: Glucose,Whole Blood 158 mg/dL (70-110)
[2023-01-26 19:07] LABS: % Iron Saturation 56.02 (12.00-45.00)
[2023-01-26 19:57] LABS: Glucose,Whole Blood 170 mg/dL (70-110)
[2023-01-26] MEDS: ATORVASTATIN 40 MG TAB PO SCH (20:58)
[2023-01-26] MEDS: LACTATED RINGERS 1,000 ML IV SCH (21:06)
[2023-01-27] MEDS: metroNIDAZOLE-NS PMX 500 MG in SALINE 1 100ML.BAG IVPB SCH ×3 (00:12→17:00)
[2023-01-27] MEDS: SODIUM CHLORIDE 0.9% 1,000 ML IV SCH (02:06)
[2023-01-27 05:34] LABS: Glucose,Whole Blood 250 mg/dL (70-110)
[2023-01-27] MEDS: FERROUS SULFATE 325 MG TAB PO SCH ×2 (06:53→17:00)
[2023-01-27] MEDS: MIDODRINE 5 MG TAB PO SCH ×2 (06:53→17:10)
[2023-01-27 07:05] LABS: Anisocytosis Marked; HCT 23.1 % (34.0-46.0); HGB 7.1 gm/dL (11.4-16.0); Hypochromasia Moderate; MCH 24.4 pg (25.0-35.0); MCHC 30.9 g/dL (31.0-37.0); Microcytosis Moderate; Platelet Count 269 k/uL (150-450); Poikilocytosis Moderate; RBC 2.92 m/uL (3.80-5.40); RDW 24.5 % (11.5-15.5); WBC 13.4 k/uL (3.8-10.6)
[2023-01-27] MEDS: PANTOPRAZOLE 40 MG/10 ML VIAL IVP SCH ×2 (08:33→20:52)
[2023-01-27 09:16] LABS: Band Neutrophils % 5 %; Eosinophils # (M) 0.54 k/uL (0-0.7); Lymphocytes # (M) 3.35 k/uL (1.0-4.8); Monocytes # (M) 0.54 k/uL (0-1.0); Neutrophils % (M) 59 %; Nucleated Red Blood Cells 0 /100 WBC (0-0); Total Cells Counted 100
--- NOTE | 2023-01-27 10:55 | P.PN ---
Subjective Progress Note Date: 01/27/23 Principal diagnosis: anemia Upon visit today patient is resting comfortably in bed. Patient reports feeling well. Denies nausea vomiting diarrhea. S/p colonoscopy yesterday. Denies abdominal pain at this time. No other reported complaints Objective - Vital Signs Vital signs: Vital Signs Temp 99.3 F 01/27/23 08:30 Pulse 80 01/27/23 08:30 Resp 20 01/27/23 08:30 BP 117/60 01/27/23 08:30 Pulse Ox 92 L 01/27/23 08:30 FiO2 21 01/25/23 08:26 Intake & Output 01/26/23 01/27/23 01/27/23 18:59 06:59 18:59 Intake Total 1280 180 Output Total 1350 Balance -70 180 Intake: IV 1100 Sodium Chloride 0.9% 1, 800 000 ml @ 100 mls/hr IV . Q10H [facility] Rx#:[id number] Oral 180 180 Output: Urine 1350 Other: Voiding Method Bedside Commode # Voids 1 1 # Bowel Movements 10 - Constitutional General appearance: Present: average body habitus, no acute distress - EENT Eyes: Present: anicteric sclerae, EOMI ENT: Present: hearing grossly normal - Respiratory Details: breathing is even and unlabored - Cardiovascular Details: skin warm and dry - Integumentary Integumentary: Present: pale - Neurologic Neurologic: Present: CNII-XII intact - Musculoskeletal Musculoskeletal: Present: strength equal bilaterally - Psychiatric Psychiatric: Present: A&O x's 3, appropriate affect, intact judgment & insight - Labs CBC & Chem 7: 01/27/23 06:11 01/26/23 05:31 Labs: Abnormal Lab Results - Last 24 Hours (Table) 01/22/23 01/24/23 01/26/23 Range/Units 20:43 07:22 05:31 WBC (3.8-10.6) k/uL RBC (3.80-5.40) m/uL Hgb (11.4-16.0) gm/dL Hct (34.0-46.0) % MCV (80.0-100.0) fL MCH (25.0-35.0) pg MCHC (31.0-37.0) g/dL RDW (11.5-15.5) % Blast Cells % 4 H* % Neutrophils # (Manual) (1.3-7.7) k/uL Metamyelocytes # (Man) 0.42 H (0) k/uL Myelocytes # (Manual) 0.31 H (0) k/uL Blast Cells # (Man) 0.42 H (0) k/uL Nucleated RBCs 1 H (0-0) /100 WBC Pathologist Review See comment A ESR 56 H (0-20) mm/hr POC Glucose (mg/dL) (70-110) mg/dL TIBC (228-460) ug/dL % Saturation (12.00-45.00) Transferrin (204.0-354.0) mg/dL Ferritin (10.0-291.0) ng/mL 01/26/23 01/26/23 01/26/23 Range/Units 10:41 11:43 16:24 WBC (3.8-10.6) k/uL RBC (3.80-5.40) m/uL Hgb (11.4-16.0) gm/dL Hct (34.0-46.0) % MCV (80.0-100.0) fL MCH (25.0-35.0) pg MCHC (31.0-37.0) g/dL RDW (11.5-15.5) % Blast Cells % % Neutrophils # (Manual) (1.3-7.7) k/uL Metamyelocytes # (Man) (0) k/uL Myelocytes # (Manual) (0) k/uL Blast Cells # (Man) (0) k/uL Nucleated RBCs (0-0) /100 WBC Pathologist Review ESR (0-20) mm/hr POC Glucose (mg/dL) 157 H 158 H (70-110) mg/dL TIBC 214 L (228-460) ug/dL % Saturation 56.02 H (12.00-45.00) Transferrin 153.0 L (204.0-354.0) mg/dL Ferritin 571.0 H (10.0-291.0) ng/mL 01/26/23 01/27/23 01/27/23 Range/Units 19:56 05:33 06:11 WBC 13.4 H (3.8-10.6) k/uL RBC 2.92 L (3.80-5.40) m/uL Hgb 7.1 L (11.4-16.0) gm/dL Hct 23.1 L (34.0-46.0) % MCV 79.0 L (80.0-100.0) fL MCH 24.4 L (25.0-35.0) pg MCHC 30.9 L (31.0-37.0) g/dL RDW 24.5 H (11.5-15.5) % Blast Cells % 3 H* % Neutrophils # (Manual) 8.50 H (1.3-7.7) k/uL Metamyelocytes # (Man) (0) k/uL Myelocytes # (Manual) (0) k/uL Blast Cells # (Man) 0.40 H (0) k/uL Nucleated RBCs (0-0) /100 WBC Pathologist Review ESR (0-20) mm/hr POC Glucose (mg/dL) 170 H 250 H (70-110) mg/dL TIBC (228-460) ug/dL % Saturation (12.00-45.00) Transferrin (204.0-354.0) mg/dL Ferritin (10.0-291.0) ng/mL Microbiology - Last 24 Hours (Table) 01/22/23 20:45 Blood Culture - Preliminary Blood No Growth after 96 hours Assessment and Plan (1) Abnormal CBC Current Visit: Yes Status: Acute Priority: High Code(s): R79.89 - OTHER SPECIFIED ABNORMAL FINDINGS OF BLOOD CHEMISTRY SNOMED Code(s): 811774579 (2) Acute diverticulitis Current Visit: Yes Status: Acute Priority: High Code(s): K57.92 - DVTRCLI OF INTEST, PART UNSP, W/O PERF OR ABSCESS W/O BLEED SNOMED Code(s): 331825824 (3) Anemia Current Visit: Yes Status: Acute Priority: High Code(s): D64.9 - ANEMIA, UNSPECIFIED SNOMED Code(s): 661908070 (4) Rectal bleeding Current Visit: Yes Status: Acute Priority: High Code(s): K62.5 - HEMORRHAGE OF ANUS AND RECTUM SNOMED Code(s): 60526634 Plan: Anemia: -[place]emog[place] 6.1 upon admission, and received 1 unit of PRBCs with appropriate response to transfusion. Hemoglobin 7.1 today. -Hx of GI bleeds. Anemia likely related to hematochezia -Iron studies obtained, iron 120, iron saturation 56%, ferritin 571. Likely elevated due to recent blood transfusions. ESR 56. 2 doses IV iron ordered -CBC daily. Will continue to monitor. Please transfuse for hemoglobin less than 7 or if symptomatic Elevated blast cells: -Blast cells elevated, ranging from 2-4%, 3% today -Hx of multiple regimens of chemotherapy. Elevation in blast cells likely acute due to GI bleed and hx of chemotherapy which can have adverse effects on bone marrow. Will continue to monitor blast cell counts as patient recovers. And will f/u outpatient to repeat labs in 3-4 weeks once patient fully recovers. If blast cells remain elevated will plan for bone marrow biopsy -Pt updated on POC and is agreeable. -F/u appt in discharge plan GI bleed: -Hx of GI bleeds -EGD and colonscopy on 12/17/22 which showed no sign of acute GI bleed. -Surgery consulted. Repeat colonoscopy showed no acute GI bleed, but showed blood tinged stool and diverticular changes Diverticulutis: -CT abd/pelvis showed mild diverticultitis -Flagyl and levaquin ordered -Managed by IM attests: I have performed H&P and developed impression and plan of care for patient, discussed with dictator. I agree with dictated note, documented as a scribe
--- NOTE | 2023-01-27 11:24 | P.PN ---
Subjective Progress Note Date: 01/27/23 CHIEF COMPLAINT: Diverticular bleed HISTORY OF PRESENT ILLNESS: Patient status post colonoscopy revealing diverticulosis. There is no evidence of active GI bleed. It is presumed patient had bleeding from diverticular disease. Patient denies abdominal pain. Denies any nausea or vomiting. WBC 14.7 down to 13.4 Hgb 7.7 down to 7.1 platelet of 269 blast cells 3. Patient seen by hematology regarding elevated blast cells PHYSICAL EXAM: VITAL SIGNS: Reviewed. GENERAL: Well-developed in no acute distress. HEENT: No sclera icterus. Extraocular movements grossly intact. Moist buccal mucosa. Head is atraumatic, normocephalic. ABDOMEN: Soft. Nondistended. Nontender. NEUROLOGIC: Alert and oriented. Cranial nerves II through XII grossly intact. ASSESSMENT: 1. Acute GI bleed likely due to a diverticular bleed 2. Acute sigmoid diverticulitis PLAN: -Continue to hold Plavix and Eliquis -Continue antibiotics -Continue monitoring sensor symptoms of bleeding -Continue monitor hemoglobin -Repeat CBC in AM Physician [employer] note has been reviewed by physician. Signing provider agrees with the documented findings, assessment, and plan of care. Objective - Vital Signs Vital signs: Vital Signs Temp 99.3 F 01/27/23 08:30 Pulse 80 01/27/23 08:30 Resp 20 01/27/23 08:30 BP 117/60 01/27/23 08:30 Pulse Ox 92 L 01/27/23 08:30 FiO2 21 01/25/23 08:26 Intake & Output 01/26/23 01/27/23 01/27/23 18:59 06:59 18:59 Intake Total 1280 180 Output Total 1350 Balance -70 180 Intake: IV 1100 Sodium Chloride 0.9% 1, 800 000 ml @ 100 mls/hr IV . Q10H [facility] Rx#:[id number] Oral 180 180 Output: Urine 1350 Other: Voiding Method Bedside Commode Bedside Commode # Voids 1 1 # Bowel Movements 10 - Labs CBC & Chem 7: 01/27/23 06:11 01/26/23 05:31 Labs: Abnormal Lab Results - Last 24 Hours (Table) 01/22/23 01/24/23 01/26/23 Range/Units 20:43 07:22 05:31 WBC (3.8-10.6) k/uL RBC (3.80-5.40) m/uL Hgb (11.4-16.0) gm/dL Hct (34.0-46.0) % MCV (80.0-100.0) fL MCH (25.0-35.0) pg MCHC (31.0-37.0) g/dL RDW (11.5-15.5) % Blast Cells % 4 H* % Neutrophils # (Manual) (1.3-7.7) k/uL Metamyelocytes # (Man) 0.42 H (0) k/uL Myelocytes # (Manual) 0.31 H (0) k/uL Blast Cells # (Man) 0.42 H (0) k/uL Nucleated RBCs 1 H (0-0) /100 WBC Pathologist Review See comment A ESR 56 H (0-20) mm/hr POC Glucose (mg/dL) (70-110) mg/dL TIBC (228-460) ug/dL % Saturation (12.00-45.00) Transferrin (204.0-354.0) mg/dL Ferritin (10.0-291.0) ng/mL 01/26/23 01/26/23 01/26/23 Range/Units 10:41 11:43 16:24 WBC (3.8-10.6) k/uL RBC (3.80-5.40) m/uL Hgb (11.4-16.0) gm/dL Hct (34.0-46.0) % MCV (80.0-100.0) fL MCH (25.0-35.0) pg MCHC (31.0-37.0) g/dL RDW (11.5-15.5) % Blast Cells % % Neutrophils # (Manual) (1.3-7.7) k/uL Metamyelocytes # (Man) (0) k/uL Myelocytes # (Manual) (0) k/uL Blast Cells # (Man) (0) k/uL Nucleated RBCs (0-0) /100 WBC Pathologist Review ESR (0-20) mm/hr POC Glucose (mg/dL) 157 H 158 H (70-110) mg/dL TIBC 214 L (228-460) ug/dL % Saturation 56.02 H (12.00-45.00) Transferrin 153.0 L (204.0-354.0) mg/dL Ferritin 571.0 H (10.0-291.0) ng/mL 01/26/23 01/27/23 01/27/23 Range/Units 19:56 05:33 06:11 WBC 13.4 H (3.8-10.6) k/uL RBC 2.92 L (3.80-5.40) m/uL Hgb 7.1 L (11.4-16.0) gm/dL Hct 23.1 L (34.0-46.0) % MCV 79.0 L (80.0-100.0) fL MCH 24.4 L (25.0-35.0) pg MCHC 30.9 L (31.0-37.0) g/dL RDW 24.5 H (11.5-15.5) % Blast Cells % 3 H* % Neutrophils # (Manual) 8.50 H (1.3-7.7) k/uL Metamyelocytes # (Man) (0) k/uL Myelocytes # (Manual) (0) k/uL Blast Cells # (Man) 0.40 H (0) k/uL Nucleated RBCs (0-0) /100 WBC Pathologist Review ESR (0-20) mm/hr POC Glucose (mg/dL) 170 H 250 H (70-110) mg/dL TIBC (228-460) ug/dL % Saturation (12.00-45.00) Transferrin (204.0-354.0) mg/dL Ferritin (10.0-291.0) ng/mL Microbiology - Last 24 Hours (Table) 01/22/23 20:45 Blood Culture - Preliminary Blood No Growth after 96 hours
[2023-01-27 11:48] LABS: Glucose,Whole Blood 226 mg/dL (70-110)
[2023-01-27] MEDS: SODIUM FERRIC GLUCONAT-SUCROSE 125 MG in SODIUM CHLORIDE 0.9% 100 ML IVPB SCH (12:07)
[2023-01-27] MEDS: LEVOFLOXACIN 750MG-D5W PMX 750 MG in DEXTROSE/WATER 1 150ML.BAG IVPB SCH (13:28)
[2023-01-27] MEDS: PROMETHAZINE 25 MG TAB PO PRN (13:51)
[2023-01-27] MEDS: ONDANSETRON 4 MG/2 ML VIAL IVP PRN (16:59)
[2023-01-27] MEDS: HYDROmorphone 1 MG/ML 1 ML SYRINGE IVP PRN (17:00)
[2023-01-27 17:01] LABS: Glucose,Whole Blood 277 mg/dL (70-110)
[2023-01-27] MEDS: IOPAMIDOL CONTRAST (ORAL USE) VIAL PO PRN ×2 (17:51→18:50)
[2023-01-27] MEDS: LACTATED RINGERS 1,000 ML IV SCH (18:33)
--- NOTE | 2023-01-27 20:26 | CT ---
EXAMINATION TYPE: CT abdomen pelvis wo/w con DATE OF EXAM: 01/27/2023 COMPARISON: 01/22/2023 HISTORY: abdominal pain CT DLP: 2726.5 mGycm Automated exposure control for dose reduction was used. CONTRAST: Performed without and with IV Contrast, patient injected with 100 mL of Isovue 300. Images obtained from the diaphragm to the floor the pelvis without and with IV contrast. There is tanya e oral contrast. There is bilateral pleural effusions. There is bilateral lower lobe pulmonary infiltrate and atelecta sis. Heart size is normal. No pericardial effusion. There is surgery of the aortic valve. There is co ronary artery calcification. No pericardial effusion. Liver and spleen are intact. Stomach is intact. No pancreatic mass. Gallbladder is intact. The bile d ucts are not dilated. There is no adrenal mass. Kidneys show satisfactory contrast opacification. No hydronephrosis. Ureter s are not dilated. No retroperitoneal adenopathy. Delayed images show normal renal excretion. There a re small calculi at the right renal hilum measuring 2 to 3 mm. There is metal artifact from left hip prosthesis. Urinary bladder is empty. No pelvic mass. No free f luid in the pelvis. There is no mesenteric edema. No ascites or free air. No sign of a bowel obstruction. There is some b ilateral perinephric fluid. The lumbar vertebrae have normal alignment. No compression fracture. There is T10 anterior wedging 25 % that appears old. The bony pelvis is intact. Sacroiliac joints are intact. IMPRESSION: Nonobstructing right-sided renal calculi. Bilateral perinephric fluid that is increased compared to r ecent exam. This could be related to congestive heart failure and the pleural fluid and basilar pulmo nary infiltrates significantly increased compared to recent exam. No evidence of diverticulitis. There is sigmoid diverticulosis.
[2023-01-27 20:36] LABS: Glucose,Whole Blood 271 mg/dL (70-110)
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
[2023-01-27] MEDS: ATORVASTATIN 40 MG TAB PO SCH (20:52)
[2023-01-28] MEDS: metroNIDAZOLE-NS PMX 500 MG in SALINE 1 100ML.BAG IVPB SCH ×3 (00:27→16:27)
[2023-01-28] MEDS: SODIUM CHLORIDE 0.9% 1,000 ML IV SCH ×3 (03:29→18:12)
[2023-01-28] MEDS: FERROUS SULFATE 325 MG TAB PO SCH ×2 (06:21→16:27)
[2023-01-28 06:27] LABS: Glucose,Whole Blood 178 mg/dL (70-110)
[2023-01-28] MEDS: SODIUM FERRIC GLUCONAT-SUCROSE 125 MG in SODIUM CHLORIDE 0.9% 100 ML IVPB SCH (09:05)
[2023-01-28] MEDS: PANTOPRAZOLE 40 MG/10 ML VIAL IVP SCH ×2 (09:05→21:17)
[2023-01-28 09:30] LABS: Anisocytosis Marked; HCT 26.1 % (34.0-46.0); HGB 8.1 gm/dL (11.4-16.0); Hypochromasia Moderate; MCH 24.8 pg (25.0-35.0); MCHC 31.2 g/dL (31.0-37.0); MCV 79.6 fL (80.0-100.0); Mean Platelet Volume 12.3; Microcytosis Moderate; Platelet Count 332 k/uL (150-450); Poikilocytosis Moderate; RBC 3.28 m/uL (3.80-5.40); RDW 24.7 % (11.5-15.5); WBC 15.7 k/uL (3.8-10.6)
[2023-01-28 10:28] LABS: Band Neutrophils % 10 %; Eosinophils # (M) 0.94 k/uL (0-0.7); Lymphocytes # (M) 5.18 k/uL (1.0-4.8); Metamyelocytes # (M) 0.16 k/uL (0); Metamyelocytes % 1 %; Monocytes # (M) 0.47 k/uL (0-1.0); Myelocytes # (M) 0.16 k/uL (0); Myelocytes % 1 %; Neutrophils % (M) 43 %
[2023-01-28 10:29] LABS: Blast Cells # (M) 0.47 k/uL (0); Nucleated Red Blood Cells 0 /100 WBC (0-0); Total Cells Counted 100
[2023-01-28 11:40] VITALS: BMI 30.4
[2023-01-28 11:47] LABS: Glucose,Whole Blood 185 mg/dL (70-110)
--- NOTE | 2023-01-28 12:05 | P.PN ---
Subjective Progress Note Date: 01/28/23 CHIEF COMPLAINT: Diverticular bleed HISTORY OF PRESENT ILLNESS: Patient status post colonoscopy revealing diverticulosis. There is no evidence of active GI bleed. It is presumed patient had bleeding from diverticular disease. Patient had multiple episodes of vomiting yesterday afternoon. As well as increased abdominal pain. Computed tomography scan abdomen and pelvis ordered showing nonobstructing right-sided renal calculi. Bilateral perinephritic fluid that is increased compared to recent exam. This could be related to congestive heart failure and the pleural fluid and basilar pulmonary infiltrates and increased compared to recent exam. There is no evidence of diverticulitis. There is sigmoid diverticulosis. Patient does complain of pain next to her old colostomy site. She reports no bowel movement. She's had no further bleeding from the rectum. Afebrile. WBC is up from 13.4-15.7 Hgb 7.1 up to 8.1 platelets 232 blast cells 3 PHYSICAL EXAM: VITAL SIGNS: Reviewed. GENERAL: Well-developed in no acute distress. HEENT: No sclera icterus. Extraocular movements grossly intact. Moist buccal mucosa. Head is atraumatic, normocephalic. ABDOMEN: Soft. Nondistended. Tenderness with palpation left side of abdomen near the old ostomy scar NEUROLOGIC: Alert and oriented. Cranial nerves II through XII grossly intact. ASSESSMENT: 1. Acute GI bleed likely due to a diverticular bleed 2. Acute sigmoid diverticulitis. No further evidence of diverticulitis on CT 3. Abdominal pain and vomiting 4. Leukocytosis PLAN: -CXR and UA ordered regarding elevated WBC -Continue to hold Plavix and Eliquis -Continue antibiotics -Start clear liquid diet Physician [employer] note has been reviewed by physician. Signing provider agrees with the documented findings, assessment, and plan of care. Objective - Vital Signs Vital signs: Vital Signs Temp 97.7 F 01/28/23 08:00 Pulse 91 01/28/23 08:00 Resp 18 01/28/23 08:00 BP 117/55 01/28/23 08:00 Pulse Ox 91 L 01/28/23 08:00 FiO2 21 01/25/23 08:26 Intake & Output 01/27/23 01/28/23 01/28/23 18:59 06:59 18:59 Intake Total 660 Output Total 2475 Balance 660 -2475 Intake: Oral 660 Output: Urine 2475 Other: Voiding Method Bedside Commode Toilet Toilet # Voids 1 1 - Labs CBC & Chem 7: 01/28/23 07:08 01/26/23 05:31 Labs: Abnormal Lab Results - Last 24 Hours (Table) 01/27/23 01/27/23 01/27/23 Range/Units 11:47 16:59 20:33 WBC (3.8-10.6) k/uL RBC (3.80-5.40) m/uL Hgb (11.4-16.0) gm/dL Hct (34.0-46.0) % MCV (80.0-100.0) fL MCH (25.0-35.0) pg RDW (11.5-15.5) % POC Glucose (mg/dL) 226 H 277 H 271 H (70-110) mg/dL 01/28/23 01/28/23 Range/Units 06:25 07:08 WBC 15.7 H (3.8-10.6) k/uL RBC 3.28 L (3.80-5.40) m/uL Hgb 8.1 L (11.4-16.0) gm/dL Hct 26.1 L (34.0-46.0) % MCV 79.6 L (80.0-100.0) fL MCH 24.8 L (25.0-35.0) pg RDW 24.7 H (11.5-15.5) % POC Glucose (mg/dL) 178 H (70-110) mg/dL Microbiology - Last 24 Hours (Table) 01/22/23 20:45 Blood Culture - Preliminary Blood No Growth after 120 hours
[2023-01-28] MEDS: LEVOFLOXACIN 750MG-D5W PMX 750 MG in DEXTROSE/WATER 1 150ML.BAG IVPB SCH (12:09)
[2023-01-28] MEDS: HYDROmorphone 1 MG/ML 1 ML SYRINGE IVP PRN (12:09)
--- NOTE | 2023-01-28 14:18 | XR ---
EXAMINATION TYPE: XR chest 2V DATE OF EXAM: 01/28/2023 COMPARISON: Chest x-ray December 12, 2022 HISTORY: Cough and leukocytosis. TECHNIQUE: Frontal and lateral views of the chest are obtained. FINDINGS: The cardiac silhouette size is stable and within normal limits. Overlying loop recorder i s redemonstrated. Metallic stent at the aortic root is redemonstrated. There are new small size left greater than right pleural effusions and new increased interstitial markings or edema bilaterally. Up per lungs are clear without pneumothorax. The osseous structures are intact. IMPRESSION: New small bilateral pleural effusions and [id number] interstitial edema. Correlate for fluid overload state.
--- NOTE | 2023-01-28 16:11 | P.PN ---
Subjective Progress Note Date: 01/28/23 Principal diagnosis: anemia Upon visit today patient is resting comfortably in bed. Patient reports feeling well. Denies nausea vomiting diarrhea and abdominal pain. No other reported complaints Objective - Vital Signs Vital signs: Vital Signs Temp 98.1 F 01/28/23 16:00 Pulse 89 01/28/23 16:00 Resp 18 01/28/23 16:00 BP 127/70 01/28/23 16:00 Pulse Ox 96 01/28/23 16:00 FiO2 21 01/25/23 08:26 Intake & Output 01/27/23 01/28/23 01/28/23 18:59 06:59 18:59 Intake Total 660 Output Total 2475 400 Balance 660 -4005 -400 Weight 85.729 kg Intake: Oral 660 Output: Urine 2475 400 Other: Voiding Method Bedside Commode Toilet Toilet # Voids 1 1 - Constitutional General appearance: Present: average body habitus, no acute distress - EENT Eyes: Present: anicteric sclerae, EOMI ENT: Present: hearing grossly normal - Respiratory Details: breathing is even and unlabored - Cardiovascular Details: skin warm and dry - Integumentary Integumentary: Present: pale - Neurologic Neurologic Comment(s): grossly intact - Musculoskeletal Musculoskeletal: Present: strength equal bilaterally - Psychiatric Psychiatric: Present: A&O x's 3, appropriate affect, intact judgment & insight - Labs CBC & Chem 7: 01/28/23 07:08 01/26/23 05:31 Labs: Abnormal Lab Results - Last 24 Hours (Table) 01/27/23 01/27/23 01/28/23 Range/Units 16:59 20:33 06:25 WBC (3.8-10.6) k/uL RBC (3.80-5.40) m/uL Hgb (11.4-16.0) gm/dL Hct (34.0-46.0) % MCV (80.0-100.0) fL MCH (25.0-35.0) pg RDW (11.5-15.5) % Blast Cells % % Neutrophils # (Manual) (1.3-7.7) k/uL Lymphocytes # (Manual) (1.0-4.8) k/uL Eosinophils # (Manual) (0-0.7) k/uL Metamyelocytes # (Man) (0) k/uL Myelocytes # (Manual) (0) k/uL Blast Cells # (Man) (0) k/uL POC Glucose (mg/dL) 277 H 271 H 178 H (70-110) mg/dL 01/28/23 01/28/23 Range/Units 07:08 11:44 WBC 15.7 H (3.8-10.6) k/uL RBC 3.28 L (3.80-5.40) m/uL Hgb 8.1 L (11.4-16.0) gm/dL Hct 26.1 L (34.0-46.0) % MCV 79.6 L (80.0-100.0) fL MCH 24.8 L (25.0-35.0) pg RDW 24.7 H (11.5-15.5) % Blast Cells % 3 H* % Neutrophils # (Manual) 8.30 H (1.3-7.7) k/uL Lymphocytes # (Manual) 5.18 H (1.0-4.8) k/uL Eosinophils # (Manual) 0.94 H (0-0.7) k/uL Metamyelocytes # (Man) 0.16 H (0) k/uL Myelocytes # (Manual) 0.16 H (0) k/uL Blast Cells # (Man) 0.47 H (0) k/uL POC Glucose (mg/dL) 185 H (70-110) mg/dL Microbiology - Last 24 Hours (Table) 01/22/23 20:45 Blood Culture - Preliminary Blood No Growth after 120 hours Assessment and Plan (1) Abnormal CBC Current Visit: Yes Status: Acute Priority: High Code(s): R79.89 - OTHER SPECIFIED ABNORMAL FINDINGS OF BLOOD CHEMISTRY SNOMED Code(s): 997816289 (2) Acute diverticulitis Current Visit: Yes Status: Acute Priority: High Code(s): K57.92 - DVTRCLI OF INTEST, PART UNSP, W/O PERF OR ABSCESS W/O BLEED SNOMED Code(s): 351085547 (3) Anemia Current Visit: Yes Status: Acute Priority: High Code(s): D64.9 - ANEMIA, UNSPECIFIED SNOMED Code(s): 833387507 (4) Rectal bleeding Current Visit: Yes Status: Acute Priority: High Code(s): K62.5 - HEMORRHAGE OF ANUS AND RECTUM SNOMED Code(s): 39772973 Plan: Anemia: -[place]emog[place] 6.1 upon admission, and received 1 unit of PRBCs with appropriate response to transfusion. Hemoglobin 8.1 today, improving -Hx of GI bleeds. Anemia likely related to hematochezia -Iron studies obtained, iron 120, iron saturation 56%, ferritin 571. Likely elevated due to recent blood transfusions. ESR 56. 2 doses IV iron ordered -CBC daily. Will continue to monitor. Please transfuse for hemoglobin less than 7 or if symptomatic Elevated blast cells: -Blast cells elevated, ranging from 2-4%, 3% today -Hx of multiple regimens of chemotherapy. Elevation in blast cells likely acute due to GI bleed and hx of chemotherapy which can have adverse effects on bone marrow. Will continue to monitor blast cell counts as patient recovers. And will f/u outpatient to repeat labs in 3-4 weeks once patient fully recovers. If blast cells remain elevated will plan for bone marrow biopsy -Pt updated on POC and is agreeable. -F/u appt in discharge plan GI bleed: -Hx of GI bleeds -EGD and colonoscopy on 12/17/22 which showed no sign of acute GI bleed. -Surgery consulted. Repeat colonoscopy showed no acute GI bleed, but showed blood tinged stool and diverticular changes Diverticulitis: -CT abd/pelvis showed mild diverticultitis -Flagyl and levaquin ordered -Managed by IM *Patient is cleared from hem/onc standpoint once cleared by IM and other consulted medical specialities
[2023-01-28] MEDS: FLUTICASONE 50MCG/SPRAY NASAL 16GM EA NOSTRIL PRN (16:26)
[2023-01-28 16:29] LABS: Glucose,Whole Blood 264 mg/dL (70-110)
[2023-01-28] MEDS: INSULIN ASPART (NovoLOG) 100 UNIT/ML VIAL SQ SCH ×2 (16:32→21:13)
[2023-01-28 19:05] LABS: Appearance,Urine Clear (Clear); Bacteria,Urine Rare /hpf; Bilirubin,Urine Negative (Negative); Blood,Urine Negative (Negative); Color,Urine Dark Brown; Glucose,Urine (UA) Negative (Negative); Ketones,Urine Negative (Negative); Leukocyte Esterase,Urine Trace (Negative); Mucus,Urine Few /hpf; Nitrite,Urine Positive (Negative); Protein,Urine 1+ (Negative); RBC,Urine 1 /hpf (0-5); Specific Gravity,Urine 1.028 (1.001-1.035); Squamous Epithelial Cell,Urine 1 /hpf (0-4); Urobilinogen,Urine <2.0 mg/dL (<2.0); WBC,Urine 2 /hpf (0-5)
[2023-01-28 20:35] LABS: Glucose,Whole Blood 147 mg/dL (70-110)
[2023-01-28] MEDS: ATORVASTATIN 40 MG TAB PO SCH (21:17)
[2023-01-28] MEDS: ACETAMINOPHEN TAB 325 MG TAB PO PRN (21:17)
[2023-01-29] MEDS: metroNIDAZOLE-NS PMX 500 MG in SALINE 1 100ML.BAG IVPB SCH ×4 (01:00→23:59)
[2023-01-29] MEDS: HYDROmorphone 1 MG/ML 1 ML SYRINGE IVP PRN ×4 (01:03→23:59)
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
[2023-01-29] MEDS: SODIUM CHLORIDE 0.9% 1,000 ML IV SCH (04:37)
[2023-01-29] MEDS: INSULIN ASPART (NovoLOG) 100 UNIT/ML VIAL SQ SCH ×4 (06:22→20:12)
[2023-01-29 06:23] LABS: Glucose,Whole Blood 136 mg/dL (70-110)
[2023-01-29] MEDS: FERROUS SULFATE 325 MG TAB PO SCH ×2 (06:24→16:38)
[2023-01-29] MEDS: PANTOPRAZOLE 40 MG/10 ML VIAL IVP SCH ×2 (08:29→20:11)
[2023-01-29 09:25] LABS: Anisocytosis Marked; HCT 26.3 % (34.0-46.0); HGB 8.2 gm/dL (11.4-16.0); Hypochromasia Moderate; MCH 24.9 pg (25.0-35.0); MCHC 31.1 g/dL (31.0-37.0); Mean Platelet Volume 11.8; Microcytosis Moderate; Platelet Count 317 k/uL (150-450); Poikilocytosis Moderate; RBC 3.29 m/uL (3.80-5.40); RDW 24.7 % (11.5-15.5)
[2023-01-29 09:42] LABS: African American GFR (CKD) >90 (>60 ml/min/1.73 sqM); Anion Gap 9 mmol/L; Blood Urea Nitrogen 9 mg/dL (7-17); Calcium 7.8 mg/dL (8.4-10.2); Carbon Dioxide 26 mmol/L (22-30); Chloride 102 mmol/L (98-107); Glucose 127 mg/dL (74-99); Non-African American GFR(CKD) >90 (>60 ml/min/1.73 sqM); Potassium 3.5 mmol/L (3.5-5.1); Sodium 137 mmol/L (137-145)
[2023-01-29 10:38] LABS: Band Neutrophils % 5 %; Eosinophils # (M) 0.96 k/uL (0-0.7); Lymphocytes # (M) 5.92 k/uL (1.0-4.8); Monocytes # (M) 0.32 k/uL (0-1.0); Neutrophils % (M) 46 %
[2023-01-29 10:39] LABS: Blast Cells # (M) 0.64 k/uL (0); Nucleated Red Blood Cells 0 /100 WBC (0-0); Total Cells Counted 100
[2023-01-29 10:40] LABS: Poikilocytosis (M) Present
[2023-01-29 11:37] LABS: Glucose,Whole Blood 187 mg/dL (70-110)
[2023-01-29] MEDS: LEVOFLOXACIN 750MG-D5W PMX 750 MG in DEXTROSE/WATER 1 150ML.BAG IVPB SCH (12:19)
--- NOTE | 2023-01-29 14:41 | P.PN ---
Subjective Progress Note Date: 01/29/23 CHIEF COMPLAINT: Diverticular bleed HISTORY OF PRESENT ILLNESS: Patient status post colonoscopy revealing diverticulosis. There is no evidence of active GI bleed. It is presumed patient had bleeding from diverticular disease. Patient continues to complain of abdominal pain on left side. She denies any further nausea or vomiting. She did have a black bowel movements. She has been receiving IV iron. Chest x-ray showed some fluid overload. Medicine service has discontinued IV fluids and given IV Lasix. Afebrile. WBC is 15-16 Hgb 8.2 platelets 317 blasts cells 4. UA no cervical evidence of infection. PHYSICAL EXAM: VITAL SIGNS: Reviewed. GENERAL: Well-developed in no acute distress. HEENT: No sclera icterus. Extraocular movements grossly intact. Moist buccal mucosa. Head is atraumatic, normocephalic. ABDOMEN: Soft. Distended upper abdomen with left-sided pain near the old o stomy scar. NEUROLOGIC: Alert and oriented. Cranial nerves II through XII grossly intact. ASSESSMENT: 1. Acute GI bleed likely due to a diverticular bleed 2. Acute sigmoid diverticulitis. No further evidence of diverticulitis on CT 3. Abdominal pain and vomiting 4. Leukocytosis PLAN: -Agree with Lasix -TPN and PICC line ordered to start nutrition support -Continue to hold Plavix and Eliquis -Continue antibiotics -Continue clear liquid diet -Continue Ensure clear Physician [employer] note has been reviewed by physician. Signing provider agrees with the documented findings, assessment, and plan of care. Objective - Vital Signs Vital signs: Vital Signs Temp 97.1 F L 01/29/23 08:31 Pulse 81 01/29/23 12:24 Resp 18 01/29/23 12:24 BP 114/62 01/29/23 12:24 Pulse Ox 94 L 01/29/23 12:24 FiO2 21 01/25/23 08:26 Intake & Output 01/28/23 01/29/23 01/29/23 18:59 06:59 18:59 Intake Total 720 Output Total 400 Balance -400 720 Weight 85.729 kg 85.729 kg Intake: Oral 720 Output: Urine 400 Other: Voiding Method Toilet Toilet Toilet # Voids 1 1 - Labs CBC & Chem 7: 01/29/23 08:02 01/29/23 08:02 Labs: Abnormal Lab Results - Last 24 Hours (Table) 01/28/23 01/28/23 01/28/23 Range/Units 07:08 16:23 18:35 WBC (3.8-10.6) k/uL RBC (3.80-5.40) m/uL Hgb (11.4-16.0) gm/dL Hct (34.0-46.0) % MCH (25.0-35.0) pg RDW (11.5-15.5) % Blast Cells % 3 H* % Neutrophils # (Manual) (1.3-7.7) k/uL Lymphocytes # (Manual) (1.0-4.8) k/uL Eosinophils # (Manual) (0-0.7) k/uL Blast Cells # (Man) (0) k/uL Glucose (74-99) mg/dL POC Glucose (mg/dL) 264 H (70-110) mg/dL Calcium (8.4-10.2) mg/dL Urine Protein 1+ H (Negative) Urine Nitrite Positive H (Negative) Ur Leukocyte Esterase Trace H (Negative) Urine Bacteria Rare H (None) /hpf Urine Mucus Few H (None) /hpf 01/28/23 01/29/23 01/29/23 Range/Units 20:34 06:22 08:02 WBC 16.0 H (3.8-10.6) k/uL RBC 3.29 L (3.80-5.40) m/uL Hgb 8.2 L (11.4-16.0) gm/dL Hct 26.3 L (34.0-46.0) % MCH 24.9 L (25.0-35.0) pg RDW 24.7 H (11.5-15.5) % Blast Cells % 4 H* % Neutrophils # (Manual) 8.10 H (1.3-7.7) k/uL Lymphocytes # (Manual) 5.92 H (1.0-4.8) k/uL Eosinophils # (Manual) 0.96 H (0-0.7) k/uL Blast Cells # (Man) 0.64 H (0) k/uL Glucose (74-99) mg/dL POC Glucose (mg/dL) 147 H 136 H (70-110) mg/dL Calcium (8.4-10.2) mg/dL Urine Protein (Negative) Urine Nitrite (Negative) Ur Leukocyte Esterase (Negative) Urine Bacteria (None) /hpf Urine Mucus (None) /hpf 01/29/23 01/29/23 Range/Units 08:02 11:36 WBC (3.8-10.6) k/uL RBC (3.80-5.40) m/uL Hgb (11.4-16.0) gm/dL Hct (34.0-46.0) % MCH (25.0-35.0) pg RDW (11.5-15.5) % Blast Cells % % Neutrophils # (Manual) (1.3-7.7) k/uL Lymphocytes # (Manual) (1.0-4.8) k/uL Eosinophils # (Manual) (0-0.7) k/uL Blast Cells # (Man) (0) k/uL Glucose 127 H (74-99) mg/dL POC Glucose (mg/dL) 187 H (70-110) mg/dL Calcium 7.8 L (8.4-10.2) mg/dL Urine Protein (Negative) Urine Nitrite (Negative) Ur Leukocyte Esterase (Negative) Urine Bacteria (None) /hpf Urine Mucus (None) /hpf Microbiology - Last 24 Hours (Table) 01/22/23 20:45 Blood Culture - Final Blood No Growth after 144 hours
[2023-01-29] MEDS ORDERED: FUROSEMIDE 10 MG/ML 4 ML VIAL IV STA (15:58)
[2023-01-29 16:27] LABS: Glucose,Whole Blood 148 mg/dL (70-110)
[2023-01-29] MEDS: SERTRALINE 50 MG TAB PO SCH (17:42)
[2023-01-29 19:59] LABS: Glucose,Whole Blood 144 mg/dL (70-110)
[2023-01-29] MEDS: ATORVASTATIN 40 MG TAB PO SCH (20:12)
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
[2023-01-30 05:55] LABS: Glucose,Whole Blood 151 mg/dL (70-110)
[2023-01-30] MEDS: INSULIN ASPART (NovoLOG) 100 UNIT/ML VIAL SQ SCH ×3 (05:57→16:40)
[2023-01-30] MEDS: FERROUS SULFATE 325 MG TAB PO SCH ×2 (05:59→16:40)
[2023-01-30 07:43] LABS: Anisocytosis Marked; HCT 22.1 % (34.0-46.0); HGB 7.4 gm/dL (11.4-16.0); Hypochromasia Slight; MCH 26.1 pg (25.0-35.0); MCHC 33.4 g/dL (31.0-37.0); MCV 78.3 fL (80.0-100.0); Mean Platelet Volume 12.5; Microcytosis Marked; Platelet Count 265 k/uL (150-450); Poikilocytosis Slight; RBC 2.82 m/uL (3.80-5.40); WBC 13.8 k/uL (3.8-10.6)
[2023-01-30 08:14] LABS: ALT 15 U/L (4-34); AST 19 U/L (14-36); African American GFR (CKD) >90 (>60 ml/min/1.73 sqM); Albumin 2.5 g/dL (3.5-5.0); Alkaline Phosphatase 82 U/L (38-126); Anion Gap 8 mmol/L; Blood Urea Nitrogen 11 mg/dL (7-17); Calcium 7.4 mg/dL (8.4-10.2); Carbon Dioxide 25 mmol/L (22-30); Chloride 100 mmol/L (98-107); Glucose 125 mg/dL (74-99); Non-African American GFR(CKD) >90 (>60 ml/min/1.73 sqM); Potassium 3.2 mmol/L (3.5-5.1); Sodium 133 mmol/L (137-145); Total Bilirubin 0.9 mg/dL (0.2-1.3); Total Protein 5.1 g/dL (6.3-8.2)
[2023-01-30] MEDS: PANTOPRAZOLE 40 MG/10 ML VIAL IVP SCH ×2 (08:26→19:49)
[2023-01-30] MEDS: HYDROcodone/APAP 5-325MG 1 EACH TAB PO PRN ×2 (08:27→15:07)
[2023-01-30] MEDS: SERTRALINE 50 MG TAB PO SCH (08:27)
[2023-01-30] MEDS: metroNIDAZOLE-NS PMX 500 MG in SALINE 1 100ML.BAG IVPB SCH ×3 (08:27→23:09)
[2023-01-30 08:36] LABS: Ionized Calcium 4.3 mg/dL (4.5-5.3)
[2023-01-30 08:42] LABS: Magnesium 1.1 mg/dL (1.6-2.3); Phosphorus 3.7 mg/dL (2.5-4.5)
[2023-01-30 09:02] LABS: Band Neutrophils % 5 %; Basophils # (M) 0.28 k/uL (0-0.2); Eosinophils # (M) 0.69 k/uL (0-0.7); Lymphocytes # (M) 2.07 k/uL (1.0-4.8); Metamyelocytes # (M) 0.28 k/uL (0); Metamyelocytes % 2 %; Myelocytes # (M) 0.14 k/uL (0); Myelocytes % 1 %; Neutrophils % (M) 55 %
[2023-01-30 09:03] LABS: Blast Cells # (M) 1.24 k/uL (0); Nucleated Red Blood Cells 0 /100 WBC (0-0); Total Cells Counted 200
[2023-01-30 09:04] LABS: RBC Fragments Present
[2023-01-30] MEDS: SIMETHICONE 80 MG CHEWABLE PO SCH ×4 (09:45→20:07)
[2023-01-30 11:49] LABS: Glucose,Whole Blood 201 mg/dL (70-110)
[2023-01-30] MEDS: LEVOFLOXACIN 750MG-D5W PMX 750 MG in DEXTROSE/WATER 1 150ML.BAG IVPB SCH (11:50)
[2023-01-30] MEDS: HYDROmorphone 1 MG/ML 1 ML SYRINGE IVP PRN ×2 (11:50→23:08)
--- NOTE | 2023-01-30 12:27 | P.PN ---
Subjective Progress Note Date: 01/30/23 Principal diagnosis: anemia Upon visit today patient is resting comfortably in bed. Patient reports feeling well. Reports mild abdominal discomfort. She also reports nausea with eating and poor appetite. Denies vomiting and diarrhea. Denies any bleeding. No other reported complaints Objective - Vital Signs Vital signs: Vital Signs Temp 98 F 01/30/23 08:33 Pulse 94 01/30/23 08:33 Resp 16 01/30/23 08:33 BP 131/71 01/30/23 08:33 Pulse Ox 94 L 01/30/23 08:33 FiO2 21 01/25/23 08:26 Intake & Output 01/29/23 01/30/23 01/30/23 18:59 06:59 18:59 Intake Total 720 480 Output Total 600 2000 Balance 120 -2000 480 Weight 85.729 kg 85.729 kg Intake: Oral 720 480 Output: Urine 600 2000 Other: Voiding Method Toilet Toilet Toilet Bedside Commode Bedside Commode # Voids 1 1 # Bowel Movements 1 - Constitutional General appearance: Present: average body habitus, no acute distress - EENT Eyes: Present: anicteric sclerae, EOMI ENT: Present: hearing grossly normal - Respiratory Details: breathing is even and unlabored - Cardiovascular Details: skin warm and dry - Gastrointestinal General gastrointestinal: Present: distended, soft, tenderness Localized gastrointestinal: tender: LUQ, RLQ, epigastric periumbilical - Integumentary Integumentary: Present: pale - Neurologic Neurologic Comment(s): grossly intact - Musculoskeletal Musculoskeletal: Present: strength equal bilaterally - Psychiatric Psychiatric: Present: A&O x's 3, appropriate affect, intact judgment & insight - Labs CBC & Chem 7: 01/30/23 07:05 01/30/23 07:05 Labs: Abnormal Lab Results - Last 24 Hours (Table) 01/29/23 01/29/23 01/30/23 Range/Units 16:26 19:56 05:53 WBC (3.8-10.6) k/uL RBC (3.80-5.40) m/uL Hgb (11.4-16.0) gm/dL Hct (34.0-46.0) % MCV (80.0-100.0) fL RDW (11.5-15.5) % Blast Cells % % Neutrophils # (Manual) (1.3-7.7) k/uL Monocytes # (Manual) (0-1.0) k/uL Basophils # (Manual) (0-0.2) k/uL Metamyelocytes # (Man) (0) k/uL Myelocytes # (Manual) (0) k/uL Blast Cells # (Man) (0) k/uL Sodium (137-145) mmol/L Potassium (3.5-5.1) mmol/L Glucose (74-99) mg/dL POC Glucose (mg/dL) 148 H 144 H 151 H (70-110) mg/dL Calcium (8.4-10.2) mg/dL Ionized Calcium [place] (4.5-5.3) mg/dL Magnesium (1.6-2.3) mg/dL Total Protein (6.3-8.2) g/dL Albumin (3.5-5.0) g/dL 01/30/23 01/30/23 01/30/23 Range/Units 07:05 07:05 07:05 WBC 13.8 H (3.8-10.6) k/uL RBC 2.82 L (3.80-5.40) m/uL Hgb 7.4 L (11.4-16.0) gm/dL Hct 22.1 L (34.0-46.0) % MCV 78.3 L (80.0-100.0) fL RDW 25.0 H (11.5-15.5) % Blast Cells % 9 H* % Neutrophils # (Manual) 8.20 H (1.3-7.7) k/uL Monocytes # (Manual) 1.10 H (0-1.0) k/uL Basophils # (Manual) 0.28 H (0-0.2) k/uL Metamyelocytes # (Man) 0.28 H (0) k/uL Myelocytes # (Manual) 0.14 H (0) k/uL Blast Cells # (Man) 1.24 H (0) k/uL Sodium 133 L (137-145) mmol/L Potassium 3.2 L (3.5-5.1) mmol/L Glucose 125 H (74-99) mg/dL POC Glucose (mg/dL) (70-110) mg/dL Calcium 7.4 L (8.4-10.2) mg/dL Ionized Calcium [place] 4.3 L (4.5-5.3) mg/dL Magnesium 1.1 L (1.6-2.3) mg/dL Total Protein 5.1 L (6.3-8.2) g/dL Albumin 2.5 L (3.5-5.0) g/dL 01/30/23 Range/Units 11:46 WBC (3.8-10.6) k/uL RBC (3.80-5.40) m/uL Hgb (11.4-16.0) gm/dL Hct (34.0-46.0) % MCV (80.0-100.0) fL RDW (11.5-15.5) % Blast Cells % % Neutrophils # (Manual) (1.3-7.7) k/uL Monocytes # (Manual) (0-1.0) k/uL Basophils # (Manual) (0-0.2) k/uL Metamyelocytes # (Man) (0) k/uL Myelocytes # (Manual) (0) k/uL Blast Cells # (Man) (0) k/uL Sodium (137-145) mmol/L Potassium (3.5-5.1) mmol/L Glucose (74-99) mg/dL POC Glucose (mg/dL) 201 H (70-110) mg/dL Calcium (8.4-10.2) mg/dL Ionized Calcium [place] (4.5-5.3) mg/dL Magnesium (1.6-2.3) mg/dL Total Protein (6.3-8.2) g/dL Albumin (3.5-5.0) g/dL Assessment and Plan (1) Abnormal CBC Current Visit: Yes Status: Acute Priority: High Code(s): R79.89 - OTHER SPECIFIED ABNORMAL FINDINGS OF BLOOD CHEMISTRY SNOMED Code(s): 160210488 (2) Acute diverticulitis Current Visit: Yes Status: Acute Priority: High Code(s): K57.92 - DVTRCLI OF INTEST, PART UNSP, W/O PERF OR ABSCESS W/O BLEED SNOMED Code(s): 156904050 (3) Anemia Current Visit: Yes Status: Acute Priority: High Code(s): D64.9 - ANEMIA, UNSPECIFIED SNOMED Code(s): 109720194 (4) Rectal bleeding Current Visit: Yes Status: Acute Priority: High Code(s): K62.5 - HEMORRHAGE OF ANUS AND RECTUM SNOMED Code(s): 88365985 Plan: Anemia: -Hemogloin 6.1 upon admission, and received 1 unit of PRBCs with appropriate response to transfusion. Hemoglobin 7.4 today. -Hx of GI bleeds. Anemia likely related to hematochezia -Iron studies obtained, iron 120, iron saturation 56%, ferritin 571. Likely elevated due to recent blood transfusions. ESR 56. 2 doses IV iron ordered -CBC daily. Will continue to monitor. Please transfuse for hemoglobin less than 7 or if symptomatic Elevated blast cells: -Blast cells elevated, ranging from 2-4%. However, today blast cells 9% -Hx of multiple regimens of chemotherapy. Elevation in blast cells likely acute due to GI bleed and hx of chemotherapy which can have adverse effects on bone marrow. Plan was to continue to monitor blast cell counts as patient recovers, and f/u outpatient to repeat labs in 4 weeks once patient fully recovers. However, due to recent elevation in blasts will plan for bone marrow biopsy next week. If patient is discharged prior, will plan for biopsy outpatient. -F/u appt in discharge plan GI bleed: -Hx of GI bleeds -EGD and colonoscopy on 12/17/22 which showed no sign of acute GI bleed. -Surgery consulted. Repeat colonoscopy showed no acute GI bleed, but showed blood tinged stool and diverticular changes -Continue to hold eliquis/plavix Diverticulitis: -CT abd/pelvis showed mild diverticultitis. Repeat CT abd/pelvis showed no diverticulitis -Continues with Flagyl and levaquin -Managed by IM -Surgery on consult, recommend clear liquid diet and PICC line for TPN nutrition
--- NOTE | 2023-01-30 12:37 | P.PN ---
Subjective Progress Note Date: 01/30/23 CHIEF COMPLAINT: Diverticular bleed HISTORY OF PRESENT ILLNESS: Patient status post colonoscopy revealing diverticulosis. There is no evidence of active GI bleed. It is presumed patient had bleeding from diverticular disease. Patient reports some improvement in her abdominal pain. She still does not feel ready for transfer diet. Denies any nausea or vomiting. She is having flatus. No bowel movement. Denies any further bloody bowel movements or black stools. Afebrile. WBC did trend down from 16-13 hemoglobin is down from 8.2-7.4. Patient to receive a dose of Lasix yesterday. Her overall swelling abdomen and extremities she reports has improved. Patient seen and examined with Dr. Sierra PHYSICAL EXAM: VITAL SIGNS: Reviewed. GENERAL: Well-developed in no acute distress. HEENT: No sclera icterus. Extraocular movements grossly intact. Moist buccal mucosa. Head is atraumatic, normocephalic. ABDOMEN: Soft. Distended upper abdomen with left-sided pain near the old ostomy scar. NEUROLOGIC: Alert and oriented. Cranial nerves II through XII grossly intact. ASSESSMENT: 1. Acute GI bleed likely due to a diverticular bleed 2. Acute sigmoid diverticulitis. No further evidence of diverticulitis on CT 3. Abdominal pain and vomiting 4. Leukocytosis PLAN: -Patient scheduled for PICC line placement and starting TPN today -Continue to hold Plavix and Eliquis -Continue antibiotics -Continue clear liquid diet -Continue Ensure clear -No surgical intervention planned Physician Orthodontist Assistant note has been reviewed by physician. Signing provider agrees with the documented findings, assessment, and plan of care. Objective - Vital Signs Vital signs: Vital Signs Temp 98.7 F 01/30/23 12:00 Pulse 90 01/30/23 12:00 Resp 17 01/30/23 12:00 BP 128/67 01/30/23 12:00 Pulse Ox 93 L 01/30/23 12:00 FiO2 21 01/25/23 08:26 Intake & Output 01/29/23 01/30/23 01/30/23 18:59 06:59 18:59 Intake Total 720 480 Output Total 600 2000 Balance 120 -2000 480 Weight 85.729 kg 85.729 kg Intake: Oral 720 480 Output: Urine 600 2000 Other: Voiding Method Toilet Toilet Toilet Bedside Commode Bedside Commode # Voids 1 1 # Bowel Movements 1 - Labs CBC & Chem 7: 01/30/23 07:05 01/30/23 07:05 Labs: Abnormal Lab Results - Last 24 Hours (Table) 01/29/23 01/29/23 01/30/23 Range/Units 16:26 19:56 05:53 WBC (3.8-10.6) k/uL RBC (3.80-5.40) m/uL Hgb (11.4-16.0) gm/dL Hct (34.0-46.0) % MCV (80.0-100.0) fL RDW (11.5-15.5) % Blast Cells % % Neutrophils # (Manual) (1.3-7.7) k/uL Monocytes # (Manual) (0-1.0) k/uL Basophils # (Manual) (0-0.2) k/uL Metamyelocytes # (Man) (0) k/uL Myelocytes # (Manual) (0) k/uL Blast Cells # (Man) (0) k/uL Sodium (137-145) mmol/L Potassium (3.5-5.1) mmol/L Glucose (74-99) mg/dL POC Glucose (mg/dL) 148 H 144 H 151 H (70-110) mg/dL Calcium (8.4-10.2) mg/dL Ionized Calcium Tiffanie (4.5-5.3) mg/dL Magnesium (1.6-2.3) mg/dL Total Protein (6.3-8.2) g/dL Albumin (3.5-5.0) g/dL 01/30/23 01/30/23 01/30/23 Range/Units 07:05 07:05 07:05 WBC 13.8 H (3.8-10.6) k/uL RBC 2.82 L (3.80-5.40) m/uL Hgb 7.4 L (11.4-16.0) gm/dL Hct 22.1 L (34.0-46.0) % MCV 78.3 L (80.0-100.0) fL RDW 25.0 H (11.5-15.5) % Blast Cells % 9 H* % Neutrophils # (Manual) 8.20 H (1.3-7.7) k/uL Monocytes # (Manual) 1.10 H (0-1.0) k/uL Basophils # (Manual) 0.28 H (0-0.2) k/uL Metamyelocytes # (Man) 0.28 H (0) k/uL Myelocytes # (Manual) 0.14 H (0) k/uL Blast Cells # (Man) 1.24 H (0) k/uL Sodium 133 L (137-145) mmol/L Potassium 3.2 L (3.5-5.1) mmol/L Glucose 125 H (74-99) mg/dL POC Glucose (mg/dL) (70-110) mg/dL Calcium 7.4 L (8.4-10.2) mg/dL Ionized Calcium Tiffanie 4.3 L (4.5-5.3) mg/dL Magnesium 1.1 L (1.6-2.3) mg/dL Total Protein 5.1 L (6.3-8.2) g/dL Albumin 2.5 L (3.5-5.0) g/dL 01/30/23 Range/Units 11:46 WBC (3.8-10.6) k/uL RBC (3.80-5.40) m/uL Hgb (11.4-16.0) gm/dL Hct (34.0-46.0) % MCV (80.0-100.0) fL RDW (11.5-15.5) % Blast Cells % % Neutrophils # (Manual) (1.3-7.7) k/uL Monocytes # (Manual) (0-1.0) k/uL Basophils # (Manual) (0-0.2) k/uL Metamyelocytes # (Man) (0) k/uL Myelocytes # (Manual) (0) k/uL Blast Cells # (Man) (0) k/uL Sodium (137-145) mmol/L Potassium (3.5-5.1) mmol/L Glucose (74-99) mg/dL POC Glucose (mg/dL) 201 H (70-110) mg/dL Calcium (8.4-10.2) mg/dL Ionized Calcium Tiffanie (4.5-5.3) mg/dL Magnesium (1.6-2.3) mg/dL Total Protein (6.3-8.2) g/dL Albumin (3.5-5.0) g/dL
[2023-01-30] MEDS ORDERED: LIDOCAINE 1% INJ 10MG/ML (5 ML VIAL-PF) SQ ONE (13:42)
[2023-01-30] MEDS ORDERED: MVI, ADULT NO.4 WITH VIT K 10 ML, TRACE (CONC-1ML/DOSE) 1 ML in AMINO ACID 5%-D20W+LYTE... IV ONE ×3 (14:30)
[2023-01-30] MEDS ORDERED: FAT EMULSION 20% 500 ML in EMPTY BAG 1 BAG IV SCH (15:00)
[2023-01-30] MEDS: FAT EMULSION 20% 250 ML in EMPTY BAG 1 BAG IV SCH (15:07)
[2023-01-30 16:33] LABS: Glucose,Whole Blood 192 mg/dL (70-110)
[2023-01-30] MEDS: ATORVASTATIN 40 MG TAB PO SCH (19:49)
[2023-01-30] MEDS: ONDANSETRON 4 MG/2 ML VIAL IVP PRN (19:49)
[2023-01-30] MEDS: BACLOFEN 10 MG TAB PO SCH (19:50)
[2023-01-30] MEDS: ACETAMINOPHEN TAB 325 MG TAB PO PRN (20:04)
[2023-01-30] MEDS ORDERED: Potassium Replacement Protocol 1 EACH MISC MISCELLANE PRN (21:34)
[2023-01-30] MEDS ORDERED: Magnesium Replacement Protocol 1 EACH MISC MISCELLANE PRN (21:34)
[2023-01-30] MEDS: POTASSIUM CHLORIDE ER 20 MEQ TAB.ER PO SCH (23:02)
[2023-01-30] MEDS: MAGNESIUM SULFATE-D5W PMX 1 GM in DEXTROSE/WATER 1 100ML.BAG IVPB SCH (23:02)
[2023-01-31] MEDS: MAGNESIUM SULFATE-D5W PMX 1 GM in DEXTROSE/WATER 1 100ML.BAG IVPB SCH ×3 (00:11→04:46)
[2023-01-31] MEDS: POTASSIUM CHLORIDE ER 20 MEQ TAB.ER PO SCH ×2 (00:11→02:19)
[2023-01-31 02:08] LABS: Glucose,Whole Blood 350 mg/dL (70-110)
[2023-01-31] MEDS: INSULIN ASPART (NovoLOG) 100 UNIT/ML VIAL SQ SCH ×4 (02:18→17:08)
[2023-01-31 06:03] LABS: Glucose,Whole Blood 357 mg/dL (70-110)
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
[2023-01-31] MEDS: FERROUS SULFATE 325 MG TAB PO SCH ×2 (06:20→17:08)
[2023-01-31 06:49] LABS: Anisocytosis Marked; HCT 22.2 % (34.0-46.0); Hypochromasia Moderate; MCH 24.6 pg (25.0-35.0); MCHC 31.2 g/dL (31.0-37.0); Mean Platelet Volume 14.6; Microcytosis Moderate; Platelet Count 227 k/uL (150-450); Poikilocytosis Slight; RBC 2.81 m/uL (3.80-5.40); WBC 12.2 k/uL (3.8-10.6)
[2023-01-31 07:09] LABS: Calcium 7.3 mg/dL (8.4-10.2); Magnesium 2.4 mg/dL (1.6-2.3); Phosphorus 4.7 mg/dL (2.5-4.5); Potassium 3.5 mmol/L (3.5-5.1)
[2023-01-31 08:13] LABS: RDW 25.5 % (11.5-15.5)
[2023-01-31 08:15] LABS: HGB 6.9 gm/dL (11.4-16.0)
[2023-01-31] MEDS: metroNIDAZOLE-NS PMX 500 MG in SALINE 1 100ML.BAG IVPB SCH ×2 (09:15→15:32)
[2023-01-31] MEDS: PANTOPRAZOLE 40 MG/10 ML VIAL IVP SCH ×2 (09:15→21:06)
[2023-01-31] MEDS: SIMETHICONE 80 MG CHEWABLE PO SCH ×4 (09:16→21:06)
[2023-01-31] MEDS: SERTRALINE 50 MG TAB PO SCH (09:16)
--- NOTE | 2023-01-31 09:36 | P.PN ---
Progress Note - Text Progress Note Date: 01/31/23 Patient states she felt a little height lightheaded today. Her blood pressure was low. Her hemoglobin is 6.9. She is had minimal left lower quadrant pain. On exam vital signs appear stable. Abdomen is soft. There is minimal left lower quadrant tenderness. There is no rebound or guarding. Presumed diverticular bleeding. Patient will receive a unit of packed red cells today. She will be observed.
--- NOTE | 2023-01-31 09:42 | P.PN ---
Progress Note - Text Progress Note Date: 01/31/23 Upon review of chart today, hemoglobin 6.9. Spoke with primary RN Anabel. Patients blood pressure 89/50 this morning, and pt reports dizziness, but states dizziness has been ongoing and is not new this morning. Nurse states pt has had no episodes of bleeding. Asked nurse to repeat BP, and if found to be less than 90 systolic to give 500cc bolus NS. 1 unit PRBCs ordered
[2023-01-31 12:10] LABS: Glucose,Whole Blood 293 mg/dL (70-110)
[2023-01-31] MEDS ORDERED: POTASSIUM CHLORIDE ER 20 MEQ TAB.ER PO STA (12:12)
[2023-01-31] MEDS ORDERED: MIDODRINE 5 MG TAB PO SCH (12:30)
[2023-01-31] MEDS: LEVOFLOXACIN 750MG-D5W PMX 750 MG in DEXTROSE/WATER 1 150ML.BAG IVPB SCH (12:33)
--- NOTE | 2023-01-31 13:21 | P.PN ---
Subjective Progress Note Date: 01/31/23 This is a pleasant 72 years old female with multiple medical problems including Atrial Fibrillation, Coronary Artery Disease (CAD), Cancer, COPD, CVA/TIA, Diabetes Mellitus, GERD/Reflux, Hyperlipidemia, Hypertension, Pneumonia, Sleep Apnea/CPAP/BIPAP, Syncope she was discharged from this facility one month ago forpossible GI bleed, TIA, syncope and bronchitis. She was visiting her surgeon yesterday in the outpatient setting and she was referred to emergency room, Patient states that since last Thursday about one week ago she noticed she was not eating well and she had only one piece of pizza because of that. She started having blood per rectum, she will not stretch blood with clots filled the toilet about 3-4 times a day, also she was feeling more lethargic and weak and she slept for 48 hours as she described, complaining OF from abdominal pain mainly in the lower abdomen on the right side since Thursday about /10 like colic comes and goes. Also patient has been vomiting 2-3 times per day but there is no blood. Also patient with poor appetite. Visiting nurse noticed that her blood pressure was on the low side about 80/40 so she decided to go and see her surgeon before here for her to the emergency room. However when I saw the patient this morning she was fully awake and oriented, she looks comfortable pleasant and not in distress, she was complaining only from minimal abdominal pain. On admission she had a fever of 101, she was hypotensive and severely anemic her blood pressure 1000 as79/45, was fluctuation up to 113/45,this morning her blood pressure was 91/46, she is saturating 93% on 3 L oxygen. hemoglobin on admission was 7.7 and 6.1, compared to 9.8 last month for shawn campo. She received 1 unit of blood transfusion and her hemoglobin this morning is 7.4.INR is normal mildly elevated lactic acid came back to normal. Basic metabolic panel and liver enzymes were unremarkable this morning. urine analysis is negative and multiple viruses are undetected including covid ,influenza and RSV she has CT of the abdomen and pelvis with IV contrast showing no bowel obstru ction with mild sigmoid diverticulitis she received 2 L of normal saline and antibiotics with Flagyl and Levaquin. echocardiogram from 04/03/2022 showing ejection fraction of 55-60% 01/24/2022 Patient feels better, she feels stronger, she was walking the hallway. Her blood pressure still borderline but is improving slowly and gradually while she is on IV fluids also she is on midodrine which she thinks is helping her She still reports some blood in his stool but it's mild Hemoglobin is stable about 7.5. She remains on Levaquin and IV Flagyl and normal saline at 1:30 milliliters per hour Check labs in the morning. Currently patient is placed on liquid diets 01/25/2023 Patient is having recurrent vomiting this morning with some worsening upper abdominal pain but her abdomen still looks soft, no guarding or rebound tenderness. She still has a few spots of bleeding per rectum and epistaxis which is mild. Blood pressure actually improved, with no tachycardia, we will alert her midodrine 5 mg twice a day and we'll alert her normal saline 200 mL per hour. She has worsening swelling in her extremities as well. KUB from today is negative for acute process. She remains on Flagyl and Levaquin Surgery team on the case and plan for endoscopy tomorrow treatment Continue with Phenergan 25 mg as patient states is helping her 01/26/2023 Patient is seen and evaluated in follow-up this morning reports she underwent a bowel prep and is scheduled for colonoscopy with general surgery services today. Patient reports she had clear stool and most recent bowel movement was free of any dark stools or blood. Patient also being followed closely and maintained on IV antibiotics in the form of Flagyl and Levaquin for acute diverticulitis. Hemoglobin is currently stable today at 7.7. WBC is elevated at 14.7 and patient will continue on antibiotics. Kidney functions are within normal limits and blood sugars being monitored. Recommend continue with IV Protonix twice daily. Patient is currently afebrile with no reports of chest pain or shortness of breath. Patient is continued on 2 L and would recommend weaning FiO2 as tolerated. Will await colonoscopy report. 01/27/2023 Patient is seen today and is being followed by general surgery as well as hematology. Patient hemoglobin is 7.1 today and wbc is elevated. Hematology recommending IV iron x2 as studies were low. Recommend repeat cbc in am. Patient is currently NPO and continued on IV abx in the form of flagyl and levaquin for diverticulitis. Colonoscopy shows no acute bleed noted, possibly diverticular disease along with sigmoid diverticulitis. Continue with pain management as patient reports abdominal cramping. Patient anticoagulant remains on hold. Patient is afebrile and has been up and walking. 01/28/2023 Patient is seen in follow up with morning and being followed by surgery as well as hematology. Patient hemoglobin is up to 8 today and has received IV iron x2. Patient blast cells 3 today with hematology following closely. Recommending outpatient follow up. Patient reports some improvement in abdominal pain and diet is being slowly advanced per surgery to clear liquids. Recommend to monitor for tolerance. Chest xray was ordered and pending. Patient continued on IV antibiotics and will continue. Need to discuss further with surgery about treatment plan. Patient is afebrile and continues with an elevated WBC. Recommend follow up labs in the am. 01/29/2023 Patient is seen in follow-up with surgery following. Patient hemoglobin is stable currently and maintained off anticoagulation. Patient is a new non-oral iron supplementation and will continue. Patient continues to have elevated WBC currently above 16 and blast cells at 4 today. Patient is continued on IV antibiotics for the diverticulitis and has been maintaining and tolerating clear liquid diet and reports improvement in her abdominal pain with no reports of nausea or vomiting. Chest x-ray showing some overload and patient reports to having some abdominal bloating as well as generalized edema and will give a dose of IV Lasix. Recommend discontinuing IV hydration. Will follow-up with repeat labs. Recommend incentive spirometer and continuing to use at least 10 times every hour while awake. Encouraged increased activity as tolerated patient reports has been up and walking to the whole back. Recommend continued physical therapy. 01/30/2023 Patient is seated evaluated in follow-up continuing to lie in the bed with gener alized weakness. Patient reports she has been up but not as much. Patient is to receive a PICC line in no being started on TPN given her poor oral intake. Electrolyte abnormalities noting potassium of 3.2 and magnesium is 1.1 and will replace and recommend repeat labs. Patient also continues to report abdominal bloating and abdomen is soft and nontender on exam. Patient did receive a dose of IV Lasix yesterday with good output. General surgery starting TPN with dietitian to follow. Encouraged incentive spirometer at the bedside as patient continues to be on oxygen it does not normally wear this in the outpatient setting. Wean FiO2 as tolerated. Repeat CBC shows a hemoglobin 7.1 today and blast cells are increased up to 9 and discussed with oncology team with plans for possible bone marrow biopsy on Thursday. 01/31/2023 Patient is seen and evaluated in follow-up and hemoglobin was 6.9 today and awaiting to receive 2 units of blood with hematology following closely. General surgery following as well and has placed the patient on TPN and has received a PICC line. Electrolytes were replaced in magnesium above 2 and potassium 3.5. Patient's blood pressure on the lower side most likely multifactorial with pain medications and low blood count will add midodrine. Kidney functions worsened along with patient's sodium becoming hyponatremic although difficult to give IV fluids as patient overload easily. Will consult nephrology and appreciate input and recommendations. Patient is afebrile with no reports of nausea or vomiting noted. No reported chest pain or worsening shortness of breath at this time. Patient needs increased activity as tolerated and sitting up in the chair more often. Would recommend PT/OT therapy daily. Review of systems: Constitutional: No reports of fatigue, fever, or chills Cardiovascular: No reports of chest pain or palpitations Respiratory: No reports of shortness of breath or cough GI: No reports of nausea, vomiting, or diarrhea, reports abdominal pain that is improving, reports not tolerating clear liquid diet : No reports of dysuria or retention Neurovascular: reports of generalized weakness All medications have been reviewed Active Medications Acetaminophen (Acetaminophen Tab 325 Mg Tab) 650 mg PO Q6HR PRN PRN Reason: Fever and/ or Mild Pain Last Admin: 01/30/23 20:04 Dose: 650 mg Hydrocodone Bitart/Acetaminophen (Hydrocodone/Apap 5-325mg 1 Each Tab) 1 each PO Q6HR PRN PRN Reason: Pain Last Admin: 01/30/23 15:07 Dose: 1 each Albuterol Sulfate (Albuterol Hfa Inhaler) 2 puff INHALATION RT-QID PRN PRN Reason: Shortness Of Breath Last Admin: 01/26/23 21:54 Dose: 2 puff Atorvastatin Calcium (Atorvastatin 40 Mg Tab) 40 mg PO HS ALIYAH Last Admin: 01/30/23 19:49 Dose: 40 mg Baclofen (Baclofen 10 Mg Tab) 10 mg PO HS ALIYAH Last Admin: 01/30/23 19:50 Dose: 10 mg Ferrous Sulfate (Ferrous Sulfate 325 Mg Tab) 325 mg PO BID-W/MEALS ALIYAH Last Admin: 01/31/23 06:20 Dose: 325 mg Fluticasone Propionate (Fluticasone 50mcg/Parks Nasal 16gm) 2 spray EA NOSTRIL DAILY PRN PRN Reason: allergies Last Admin: 01/28/23 16:26 Dose: 2 spray Hydromorphone HCl (Hydromorphone 1 Mg/Ml 1 Ml Syringe) 1 mg IVP Q3H PRN PRN Reason: Moderate to Severe Pain (4-10) Last Admin: 01/30/23 23:08 Dose: 1 mg Metronidazole 500 mg/ IV (Solution) 100 mls @ 100 mls/hr IVPB Q8HR [facility]; Pr otocol Last Admin: 01/31/23 09:15 Dose: 100 mls/hr Levofloxacin 750 mg/ IV (Solution) 150 mls @ 100 mls/hr IVPB Q24H [facility]; Protocol Last Admin: 01/31/23 12:33 Dose: 100 mls/hr Parenteral Vitamin Supplement 10 ml/ Zinc/Copper/Manganese/Selenium 1 ml/ Amino Ac/Electrol/Dextrose/Calcium 1,011 mls @ 30 mls/hr IV .Q24H ONE Stop: 01/31/23 14:29 Last Admin: 01/30/23 15:37 Dose: 30 mls/hr Fat Emulsion Intravenous 250 (ml/ IV Solution) 250 mls @ 21 mls/hr IV TuFr [facility] Last Admin: 01/30/23 15:07 Dose: 21 mls/hr Sodium Chloride 44 meq/Potassium Acetate 36 meq/Magnesium Sulfate 0.5 gm/Calcium Gluconate 1 gm/ Amino Acids/Dextrose 1,040 mls @ 65 mls/hr IV .BY DURATION [facility] Parenteral Vitamin Supplement 10 ml/ Zinc/Copper/Manganese/Selenium 1 ml/ Sodium Chloride 44 meq/ Potassium Acetate 36 meq/ Magnesium Sulfate 0.5 gm/Calcium Gluconate 1 gm/ Amino Acids/Dextrose 1,051 mls @ 65 mls/hr IV .BY DURATION [facility] Insulin Aspart (Insulin Aspart (Novolog) 100 Unit/Ml Vial) 0 unit SQ Q6HR [facility]; Protocol Last Admin: 01/31/23 12:32 Dose: 6 unit Lidocaine HCl (Lidocaine 1% (10mg/Ml) For Iv Start) 0.1 ml INTRADERMA PER PROTOCOL PRN PRN Reason: IV Start Midodrine (Midodrine 5 Mg Tab) 5 mg PO AC-TID PRN PRN Reason: Hypotension Miscellaneous Information (Potassium Replacement Protocol 1 Each Mis) 1 each MISCELLANE DAILY PRN; Protocol PRN Reason: Per Protocol Miscellaneous Information (Magnesium Replacement Protocol 1 Each Misc) 1 each MISCELLANE DAILY PRN; Protocol PRN Reason: Per Protocol Naloxone HCl (Naloxone 0.4 Mg/Ml 1 Ml Vial) 0.2 mg IV Q2M PRN PRN Reason: Opioid Reversal Ondansetron HCl (Ondansetron 4 Mg/2 Ml Vial) 4 mg IVP Q6HR PRN PRN Reason: Nausea And Vomiting Last Admin: 01/30/23 19:49 Dose: 4 mg Pantoprazole Sodium (Pantoprazole 40 Mg/10 Ml Vial) 40 mg IVP BID [facility] Last Admin: 01/31/23 09:15 Dose: 40 mg Promethazine HCl (Promethazine 25 Mg Tab) 25 mg PO Q6HR PRN PRN Reason: Nausea Last Admin: 01/27/23 13:51 Dose: 25 mg Sertraline HCl (Sertraline 50 Mg Tab) 50 mg PO DAILY [facility] Last Admin: 01/31/23 09:16 Dose: 50 mg Simethicone (Simethicone 80 Mg Chewable) 80 mg PO QID [facility] Last Admin: 01/31/23 12:32 Dose: 80 mg Physical exam: GENERAL: The patient is alert and oriented x3, not in any acute distress. Well developed, well nourished. Obese HEENT: Pupils are round and equally reacting to light. EOMI. No scleral icterus. No conjunctival pallor. Normocephalic, atraumatic. No pharyngeal erythema. No thyromegaly. CARDIOVASCULAR: S1 and S2 present. No murmurs, rubs, or gallops. PULMONARY: Chest is clear to auscultation, no wheezing or crackles. ABDOMEN: Soft, obese, lower abdominal tenderness with some bloating, nond istended, normoactive bowel sounds. No palpable organomegaly. MUSCULOSKELETAL: No joint swelling or deformity. EXTREMITIES: No cyanosis, clubbing, or pedal edema. NEUROLOGICAL: Gross neurological examination did not reveal any focal deficits. SKIN: No rashes. no petechiae. Assessment: Acute anemia, mostly acute blood loss anemia, associated with abdominal pain and sigmoid diverticulitis Diverticular disease as noted on colonoscopy Sigmoid diverticulitis Acute kidney injury, multifactorial possibly secondary to hypotension as well as poor oral intake Hypokalemia Hypomagnesemia Severe protein calorie malnutrition secondary to above Anemia likely iron deficiency Elevated blast cells, currently 9%, possibly secondary to previous chemotherapy or due to recent GI bleeding Atrial Fibrillation, on Eliquis (ON HOLD) status post Permanent Pacemaker history of anterior abdominal wall fluid collection could be related to seroma Coronary Artery Disease history, status post stent Obesity with BMI of 30.5 COPD, not in exacerbation CVA/TIA history with left foot drop Diabetes Mellitus GERD/Reflux Hyperlipidemia Hypertension Sleep Apnea/CPAP/BIPAP Diabetic neuropathy bilateral legs/feet History of colon cancer with revision/colostomy since reversed and chemo/radiation History of PVD Full code Plan: Recommend continue with antibiotics in the form of Flagyl and Levaquin with surgery following. Had colonoscopy with no active bleeding noted with most likely diverticular disease. Patient continues on antibiotics for diverticulitis and continues to have an elevated white count although trending down. recommend incentive spirometer at least 10 times every hour while awake and increased activity as tolerated Hemoglobin is 6.9 today and 2 units of PRBCs ordered and will be given Oncology following planning for possible bone marrow biopsy on Thursday Blood pressures on the lower side, multifactorial as patient is anemic requiring transfusion as well as mild hypovolemia although having swelling and holding from overload with IV hydration will add midodrine 5 mg 3 times daily as needed for blood pressure systolic of 90 or less Patient also had worsening kidney functions overnight along with hyponatremia and now on TPN we'll consult nephrology and appreciate input and recommenda tions. Recommend repeat labs and monitoring for any further blood loss. Patient denies any active bleeding at this time. Patient received a PICC line for nutrition and has been started on TPN with shaw nichols following closely Repeat labs show potassium of 3.5 and magnesium of 2 Recommend continue holding eliquis at this time with concerns for possible GI bleed Recommend to continue IV Protonix twice daily Due to multiple complex medical issues, prognosis is extremely guarded The impression and plan of care has been dictated as a scribe by Mindy Saleh, Nurse Practitioner as directed. Dr. Rajani MD I have performed a history and examination and MDM of this patient, discussed the same with the dictator, and will be documented as a scribe. Based on total visit time, I have performed more than 50% of the visit. Objective - Vital Signs Vital signs: Vital Signs Temp 98.1 F 01/31/23 08:30 Pulse 86 01/31/23 08:30 Resp 18 01/31/23 08:30 BP 98/50 01/31/23 09:50 Pulse Ox 93 L 01/31/23 08:30 FiO2 21 01/25/23 08:26 Intake & Output 01/30/23 01/31/23 01/31/23 18:59 06:59 18:59 Intake Total 480 100 Output Total 350 Balance 130 100 Weight 85.729 kg Intake: Intake, IV Titration 100 Amount metroNIDAZOLE-NS PMX 500 100 mg In Saline 1 100ml.bag @ 100 mls/hr IVPB Q8HR [facility] Rx#:[id number] Oral 480 Output: Urine 350 Other: Voiding Method Toilet Toilet Bedside Commode Bedside Commode - Labs CBC & Chem 7: 01/31/23 06:17 01/31/23 06:17 Labs: Abnormal Lab Results - Last 24 Hours (Table) 01/30/23 01/30/23 01/31/23 Range/Units 11:46 16:31 02:07 WBC (3.8-10.6) k/uL RBC (3.80-5.40) m/uL Hgb (11.4-16.0) gm/dL Hct (34.0-46.0) % MCV (80.0-100.0) fL MCH (25.0-35.0) pg RDW (11.5-15.5) % Sodium (137-145) mmol/L BUN (7-17) mg/dL Creatinine (0.52-1.04) mg/dL Glucose (74-99) mg/dL POC Glucose (mg/dL) 201 H 192 H 350 H (70-110) mg/dL Calcium (8.4-10.2) mg/dL Phosphorus (2.5-4.5) mg/dL Magnesium (1.6-2.3) mg/dL Crossmatch 01/31/23 01/31/23 01/31/23 Range/Units 06:02 06:17 06:17 WBC 12.2 H (3.8-10.6) k/uL RBC 2.81 L (3.80-5.40) m/uL Hgb 6.9 L* (11.4-16.0) gm/dL Hct 22.2 L (34.0-46.0) % MCV 79.0 L (80.0-100.0) fL MCH 24.6 L (25.0-35.0) pg RDW 25.5 H (11.5-15.5) % Sodium 131 L (137-145) mmol/L BUN 18 H (7-17) mg/dL Creatinine 1.38 H (0.52-1.04) mg/dL Glucose 292 H (74-99) mg/dL POC Glucose (mg/dL) 357 H (70-110) mg/dL Calcium 7.3 L (8.4-10.2) mg/dL Phosphorus 4.7 H (2.5-4.5) mg/dL Magnesium 2.4 H (1.6-2.3) mg/dL Crossmatch 01/31/23 Range/Units 09:56 WBC (3.8-10.6) k/uL RBC (3.80-5.40) m/uL Hgb (11.4-16.0) gm/dL Hct (34.0-46.0) % MCV (80.0-100.0) fL MCH (25.0-35.0) pg RDW (11.5-15.5) % Sodium (137-145) mmol/L BUN (7-17) mg/dL Creatinine (0.52-1.04) mg/dL Glucose (74-99) mg/dL POC Glucose (mg/dL) (70-110) mg/dL Calcium (8.4-10.2) mg/dL Phosphorus (2.5-4.5) mg/dL Magnesium (1.6-2.3) mg/dL Crossmatch See Detail
[2023-01-31] MEDS ORDERED: 1: AMINO ACID 5%-D20W+LYTES*E* 1,000 ML 2: MVI, ADULT NO.4 WITH VIT K 10 ML, TRACE (CON IV SCH ×3 (14:30)
[2023-01-31 14:39] LABS: Band Neutrophils % 4 %; Basophils # (M) 0.12 k/uL (0-0.2); Monocytes # (M) 0.24 k/uL (0-1.0)
[2023-01-31 14:42] LABS: Blast Cells # (M) 0.73 k/uL (0); Nucleated Red Blood Cells 0 /100 WBC (0-0)
[2023-01-31 14:48] LABS: Eosinophils # (M) 0.37 k/uL (0-0.7); Metamyelocytes # (M) 0.12 k/uL (0); Metamyelocytes % 1 %; Neutrophils % (M) 65 %; Total Cells Counted 300
[2023-01-31 14:55] LABS: RBC Fragments Present
[2023-01-31] MEDS ORDERED: [UNRECOGNIZED DRUG - MIXTURE] IV SCH ×7 (15:30)
[2023-01-31 16:58] LABS: Glucose,Whole Blood 239 mg/dL (70-110)
[2023-01-31] MEDS: HYDROmorphone 1 MG/ML 1 ML SYRINGE IVP PRN (17:46)
[2023-01-31] MEDS: BACLOFEN 10 MG TAB PO SCH (21:06)
[2023-01-31] MEDS: ATORVASTATIN 40 MG TAB PO SCH (21:06)
[2023-01-31 23:56] LABS: Glucose,Whole Blood 290 mg/dL (70-110)
[2023-02-01] MEDS: metroNIDAZOLE-NS PMX 500 MG in SALINE 1 100ML.BAG IVPB SCH ×3 (00:05→16:24)
[2023-02-01] MEDS: INSULIN ASPART (NovoLOG) 100 UNIT/ML VIAL SQ SCH ×5 (00:06→23:29)
[2023-02-01] MEDS: ACETAMINOPHEN TAB 325 MG TAB PO PRN ×2 (05:38→20:43)
[2023-02-01 05:43] LABS: Glucose,Whole Blood 339 mg/dL (70-110)
[2023-02-01] MEDS: FERROUS SULFATE 325 MG TAB PO SCH ×2 (07:05→17:22)
[2023-02-01 08:08] LABS: Anisocytosis Moderate; HCT 22.9 % (34.0-46.0); HGB 7.4 gm/dL (11.4-16.0); Hypochromasia Slight; MCH 25.8 pg (25.0-35.0); MCHC 32.4 g/dL (31.0-37.0); MCV 79.7 fL (80.0-100.0); Mean Platelet Volume 14.4; Microcytosis Moderate; Platelet Count 210 k/uL (150-450); Poikilocytosis Slight; RBC 2.87 m/uL (3.80-5.40); WBC 14.4 k/uL (3.8-10.6)
[2023-02-01 08:15] LABS: Calcium 7.5 mg/dL (8.4-10.2); Magnesium 1.9 mg/dL (1.6-2.3); Phosphorus 2.5 mg/dL (2.5-4.5)
[2023-02-01] MEDS: SIMETHICONE 80 MG CHEWABLE PO SCH ×4 (09:28→20:43)
[2023-02-01] MEDS: SERTRALINE 50 MG TAB PO SCH (09:28)
[2023-02-01] MEDS: PANTOPRAZOLE 40 MG/10 ML VIAL IVP SCH ×2 (09:28→20:44)
[2023-02-01] MEDS ORDERED: [UNRECOGNIZED DRUG - MIXTURE] IV SCH ×8 (09:30)
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
--- NOTE | 2023-02-01 10:22 | P.PN ---
Subjective Progress Note Date: 01/31/23 Principal diagnosis: anemia/elevated blast cells Upon visit today patient is resting comfortably in bed. Patient reports feeling ok. Reports frustrations in not knowing, "what is going on with my body". Pt reports dizziness this momrning, but states this is not new and has been intermitent. Hgb 6.9 this am, 1 unit PRBC ordered. Awaiting unit to be transfused. TPN was started yesterday. Denies vomiting and diarrhea. Denies any episodes of bleeding. No other reported complaints Objective - Vital Signs Vital signs: Vital Signs Temp 98.1 F 01/31/23 08:30 Pulse 86 01/31/23 08:30 Resp 18 01/31/23 08:30 BP 98/50 01/31/23 09:50 Pulse Ox 93 L 01/31/23 08:30 FiO2 21 01/25/23 08:26 Intake & Output 01/30/23 01/31/23 01/31/23 18:59 06:59 18:59 Intake Total 480 100 Output Total 350 Balance 130 100 Weight 85.729 kg Intake: Intake, IV Titration 100 Amount metroNIDAZOLE-NS PMX 500 100 mg In Saline 1 100ml.bag @ 100 mls/hr IVPB Q8HR [facility] Rx#:[id number] Oral 480 Output: Urine 350 Other: Voiding Method Toilet Toilet Bedside Commode Bedside Commode - Constitutional General appearance: Present: average body habitus, no acute distress - EENT Eyes: Present: anicteric sclerae, EOMI ENT: Present: hearing grossly normal - Respiratory Respiratory: bilateral: CTA - Cardiovascular Rhythm: regular Heart sounds: normal: S1, S2 Abnormal Heart Sounds: Present: systolic murmur. Absent: diastolic murmur, rub, S3 Gallop, S4 Gallop, click, other - Gastrointestinal Gastrointestinal Comment(s): firmness to lower abdomen, tenderness to RLQ, LLQ and epigastrium General gastrointestinal: Present: tenderness - Integumentary Integumentary: Present: pale - Musculoskeletal Musculoskeletal: Present: generalized weakness - Labs CBC & Chem 7: 02/01/23 06:09 02/01/23 06:09 Labs: Abnormal Lab Results - Last 24 Hours (Table) 01/30/23 01/31/23 01/31/23 Range/Units 16:31 02:07 06:02 WBC (3.8-10.6) k/uL RBC (3.80-5.40) m/uL Hgb (11.4-16.0) gm/dL Hct (34.0-46.0) % MCV (80.0-100.0) fL MCH (25.0-35.0) pg RDW (11.5-15.5) % Sodium (137-145) mmol/L BUN (7-17) mg/dL Creatinine (0.52-1.04) mg/dL Glucose (74-99) mg/dL POC Glucose (mg/dL) 192 H 350 H 357 H (70-110) mg/dL Calcium (8.4-10.2) mg/dL Phosphorus (2.5-4.5) mg/dL Magnesium (1.6-2.3) mg/dL Crossmatch 01/31/23 01/31/23 01/31/23 Range/Units 06:17 06:17 09:56 WBC 12.2 H (3.8-10.6) k/uL RBC 2.81 L (3.80-5.40) m/uL Hgb 6.9 L* (11.4-16.0) gm/dL Hct 22.2 L (34.0-46.0) % MCV 79.0 L (80.0-100.0) fL MCH 24.6 L (25.0-35.0) pg RDW 25.5 H (11.5-15.5) % Sodium 131 L (137-145) mmol/L BUN 18 H (7-17) mg/dL Creatinine 1.38 H (0.52-1.04) mg/dL Glucose 292 H (74-99) mg/dL POC Glucose (mg/dL) (70-110) mg/dL Calcium 7.3 L (8.4-10.2) mg/dL Phosphorus 4.7 H (2.5-4.5) mg/dL Magnesium 2.4 H (1.6-2.3) mg/dL Crossmatch See Detail 01/31/23 Range/Units 11:50 WBC (3.8-10.6) k/uL RBC (3.80-5.40) m/uL Hgb (11.4-16.0) gm/dL Hct (34.0-46.0) % MCV (80.0-100.0) fL MCH (25.0-35.0) pg RDW (11.5-15.5) % Sodium (137-145) mmol/L BUN (7-17) mg/dL Creatinine (0.52-1.04) mg/dL Glucose (74-99) mg/dL POC Glucose (mg/dL) 293 H (70-110) mg/dL Calcium (8.4-10.2) mg/dL Phosphorus (2.5-4.5) mg/dL Magnesium (1.6-2.3) mg/dL Crossmatch Assessment and Plan (1) Abnormal CBC Current Visit: Yes Status: Acute Priority: High Code(s): R79.89 - OTHER SPECIFIED ABNORMAL FINDINGS OF BLOOD CHEMISTRY SNOMED Code(s): 442940922 (2) Acute diverticulitis Current Visit: Yes Status: Acute Priority: High Code(s): K57.92 - DVTRCLI OF INTEST, PART UNSP, W/O PERF OR ABSCESS W/O BLEED SNOMED Code(s): 635157235 (3) Anemia Current Visit: Yes Status: Acute Priority: High Code(s): D64.9 - ANEMIA, UNSPECIFIED SNOMED Code(s): 240192630 (4) Rectal bleeding Current Visit: Yes Status: Acute Priority: High Code(s): K62.5 - HEMORRH AGE OF ANUS AND RECTUM SNOMED Code(s): 82665478 Plan: Anemia: -[place]em[place] 6.1 upon admission, and received 1 unit of PRBCs with appropriate res ponse to transfusion. Hemoglobin 6.9 today. Additional unit of PRBCs ordered -Hx of GI bleeds. Anemia likely related to hematochezia -Iron studies obtained, iron 120, iron saturation 56%, ferritin 571. Likely elevated due to recent blood transfusions. ESR 56. 2 doses IV iron have been given -CBC daily. Will continue to monitor. Please transfuse for hemoglobin less than 7 or if symptomatic Elevated blast cells: -Blast cells elevated, ranging from 2-4%. However, elevated to 9% yesterday -Hx of multiple regimens of chemotherapy. Elevation in blast cells likely acute due to GI bleed and hx of chemotherapy which can have adverse effects on bone marrow. Plan was to continue to monitor blast cell counts as patient recovers, and f/u outpatient to repeat labs in 4 weeks once patient fully recovers. However, due to recent elevation in blasts will plan for bone marrow biopsy next week. Dr. Hatfield spoke with pt regarding BM biopsy, and pt is agreeable to proceed with procedure -F/u appt in discharge plan GI bleed: -Hx of GI bleeds -EGD and colonoscopy on 12/17/22 showed no sign of acute GI bleed. -Surgery consulted. Repeat colonoscopy showed no acute GI bleed, but showed blood tinged stool and diverticular changes. Presumed to be diverticular bleeding. -Continue to hold eliquis/plavix/No NSAIDs Diverticulitis: -CT abd/pelvis showed mild diverticultitis. Repeat CT abd/pelvis showed no diverticulitis -Continues with Flagyl and levaquin -Managed by IM -Surgery on consult, recommend clear liquid diet and PICC line for TPN nutrition
--- NOTE | 2023-02-01 11:12 | P.PN ---
Progress Note - Text Progress Note Date: 02/01/23 Patient complains of general malaise. She says she does not feel good. She had a fever of 102 yesterday. She received blood products yesterday. She has some mild left-sided abdominal pain. On exam vital signs are stable. Abdomen soft. There is some minimal left lower quadrant tenderness. History of diverticulitis with diverticular bleeding. Patient will be observed.
[2023-02-01 12:13] LABS: Glucose,Whole Blood 395 mg/dL (70-110)
[2023-02-01] MEDS: SODIUM CHLORIDE 0.9% 1,000 ML IV SCH (12:14)
[2023-02-01] MEDS: HYDROmorphone 1 MG/ML 1 ML SYRINGE IVP PRN ×2 (13:54→20:44)
[2023-02-01 15:08] LABS: Band Neutrophils % 5 %; Basophils # (M) 0.14 k/uL (0-0.2); Eosinophils # (M) 0.72 k/uL (0-0.7); Lymphocytes # (M) 1.58 k/uL (1.0-4.8); Metamyelocytes # (M) 0.29 k/uL (0); Metamyelocytes % 2 %; Monocytes # (M) 0.58 k/uL (0-1.0); Neutrophils % (M) 67 %
[2023-02-01 15:09] LABS: Blast Cells # (M) 1.15 k/uL (0); Nucleated Red Blood Cells 0 /100 WBC (0-0); Total Cells Counted 200
[2023-02-01 15:11] LABS: RBC Fragments Present
[2023-02-01 17:05] LABS: Glucose,Whole Blood 370 mg/dL (70-110)
[2023-02-01 17:15] LABS: Appearance,Urine Clear (Clear); Bilirubin,Urine Negative (Negative); Blood,Urine Negative (Negative); Color,Urine Yellow; Glucose,Urine (UA) 3+ (Negative); Ketones,Urine Negative (Negative); Leukocyte Esterase,Urine Trace (Negative); Mucus,Urine Rare /hpf; Nitrite,Urine Negative (Negative); PH, Urine 5.5 (5.0-8.0); Protein,Urine Trace (Negative); RBC,Urine 1 /hpf (0-5); Urobilinogen,Urine <2.0 mg/dL (<2.0); WBC,Urine 1 /hpf (0-5)
[2023-02-01] MEDS: ATORVASTATIN 40 MG TAB PO SCH (20:43)
[2023-02-01] MEDS: BACLOFEN 10 MG TAB PO SCH (20:43)
[2023-02-01 20:53] LABS: Glucose,Whole Blood 356 mg/dL (70-110)
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
[2023-02-01 23:28] LABS: Glucose,Whole Blood 379 mg/dL (70-110)
[2023-02-01] MEDS: AZTREONAM 2 GM in SODIUM CHLORIDE 0.9% 100 ML IVPB SCH (23:29)
[2023-02-02] MEDS: metroNIDAZOLE-NS PMX 500 MG in SALINE 1 100ML.BAG IVPB SCH ×4 (00:46→23:18)
[2023-02-02] MEDS: [UNRECOGNIZED DRUG - MIXTURE] IV SCH ×16 (00:47→17:43)
--- NOTE | 2023-02-02 02:10 | P.PN ---
Subjective Progress Note Date: 02/01/23 This is a pleasant 72 years old female with multiple medical problems including Atrial Fibrillation, Coronary Artery Disease (CAD), Cancer, COPD, CVA/TIA, Diabetes Mellitus, GERD/Reflux, Hyperlipidemia, Hypertension, Pneumonia, Sleep Apnea/CPAP/BIPAP, Syncope she was discharged from this facility one month ago forpossible GI bleed, TIA, syncope and bronchitis. She was visiting her surgeon yesterday in the outpatient setting and she was referred to emergency room, Patient states that since last Thursday about one week ago she noticed she was not eating well and she had only one piece of pizza because of that. She started having blood per rectum, she will not stretch blood with clots filled the toilet about 3-4 times a day, also she was feeling more lethargic and weak and she slept for 48 hours as she described, complaining OF from abdominal pain mainly in the lower abdomen on the right side since Thursday about /10 like colic comes and goes. Also patient has been vomiting 2-3 times per day but there is no blood. Also patient with poor appetite. Visiting nurse noticed that her blood pressure was on the low side about 80/40 so she decided to go and see her surgeon before here for her to the emergency room. However when I saw the patient this morning she was fully awake and oriented, she looks comfortable pleasant and not in distress, she was complaining only from minimal abdominal pain. On admission she had a fever of 101, she was hypotensive and severely anemic her blood pressure 1000 as79/45, was fluctuation up to 113/45,this morning her blood pressure was 91/46, she is saturating 93% on 3 L oxygen. hemoglobin on admission was 7.7 and 6.1, compared to 9.8 last month for shawn campo. She received 1 unit of blood transfusion and her hemoglobin this morning is 7.4.INR is normal mildly elevated lactic acid came back to normal. Basic metabolic panel and liver enzymes were unremarkable this morning. urine analysis is negative and multiple viruses are undetected including covid ,influenza and RSV she has CT of the abdomen and pelvis with IV contrast showing no bowel obstru ction with mild sigmoid diverticulitis she received 2 L of normal saline and antibiotics with Flagyl and Levaquin. echocardiogram from 04/03/2022 showing ejection fraction of 55-60% 01/24/2022 Patient feels better, she feels stronger, she was walking the hallway. Her blood pressure still borderline but is improving slowly and gradually while she is on IV fluids also she is on midodrine which she thinks is helping her She still reports some blood in his stool but it's mild Hemoglobin is stable about 7.5. She remains on Levaquin and IV Flagyl and normal saline at 1:30 milliliters per hour Check labs in the morning. Currently patient is placed on liquid diets 01/25/2023 Patient is having recurrent vomiting this morning with some worsening upper abdominal pain but her abdomen still looks soft, no guarding or rebound tenderness. She still has a few spots of bleeding per rectum and epistaxis which is mild. Blood pressure actually improved, with no tachycardia, we will alert her midodrine 5 mg twice a day and we'll alert her normal saline 200 mL per hour. She has worsening swelling in her extremities as well. KUB from today is negative for acute process. She remains on Flagyl and Levaquin Surgery team on the case and plan for endoscopy tomorrow treatment Continue with Phenergan 25 mg as patient states is helping her 01/26/2023 Patient is seen and evaluated in follow-up this morning reports she underwent a bowel prep and is scheduled for colonoscopy with general surgery services today. Patient reports she had clear stool and most recent bowel movement was free of any dark stools or blood. Patient also being followed closely and maintained on IV antibiotics in the form of Flagyl and Levaquin for acute diverticulitis. Hemoglobin is currently stable today at 7.7. WBC is elevated at 14.7 and patient will continue on antibiotics. Kidney functions are within normal limits and blood sugars being monitored. Recommend continue with IV Protonix twice daily. Patient is currently afebrile with no reports of chest pain or shortness of breath. Patient is continued on 2 L and would recommend weaning FiO2 as tolerated. Will await colonoscopy report. 01/27/2023 Patient is seen today and is being followed by general surgery as well as hematology. Patient hemoglobin is 7.1 today and wbc is elevated. Hematology recommending IV iron x2 as studies were low. Recommend repeat cbc in am. Patient is currently NPO and continued on IV abx in the form of flagyl and levaquin for diverticulitis. Colonoscopy shows no acute bleed noted, possibly diverticular disease along with sigmoid diverticulitis. Continue with pain management as patient reports abdominal cramping. Patient anticoagulant remains on hold. Patient is afebrile and has been up and walking. 01/28/2023 Patient is seen in follow up with morning and being followed by surgery as well as hematology. Patient hemoglobin is up to 8 today and has received IV iron x2. Patient blast cells 3 today with hematology following closely. Recommending outpatient follow up. Patient reports some improvement in abdominal pain and diet is being slowly advanced per surgery to clear liquids. Recommend to monitor for tolerance. Chest xray was ordered and pending. Patient continued on IV antibiotics and will continue. Need to discuss further with surgery about treatment plan. Patient is afebrile and continues with an elevated WBC. Recommend follow up labs in the am. 01/29/2023 Patient is seen in follow-up with surgery following. Patient hemoglobin is stable currently and maintained off anticoagulation. Patient is a new non-oral iron supplementation and will continue. Patient continues to have elevated WBC currently above 16 and blast cells at 4 today. Patient is continued on IV antibiotics for the diverticulitis and has been maintaining and tolerating clear liquid diet and reports improvement in her abdominal pain with no reports of nausea or vomiting. Chest x-ray showing some overload and patient reports to having some abdominal bloating as well as generalized edema and will give a dose of IV Lasix. Recommend discontinuing IV hydration. Will follow-up with repeat labs. Recommend incentive spirometer and continuing to use at least 10 times every hour while awake. Encouraged increased activity as tolerated patient reports has been up and walking to the whole back. Recommend continued physical therapy. 01/30/2023 Patient is seated evaluated in follow-up continuing to lie in the bed with gener alized weakness. Patient reports she has been up but not as much. Patient is to receive a PICC line in no being started on TPN given her poor oral intake. Electrolyte abnormalities noting potassium of 3.2 and magnesium is 1.1 and will replace and recommend repeat labs. Patient also continues to report abdominal bloating and abdomen is soft and nontender on exam. Patient did receive a dose of IV Lasix yesterday with good output. General surgery starting TPN with dietitian to follow. Encouraged incentive spirometer at the bedside as patient continues to be on oxygen it does not normally wear this in the outpatient setting. Wean FiO2 as tolerated. Repeat CBC shows a hemoglobin 7.1 today and blast cells are increased up to 9 and discussed with oncology team with plans for possible bone marrow biopsy on Thursday. 01/31/2023 Patient is seen and evaluated in follow-up and hemoglobin was 6.9 today and awaiting to receive 2 units of blood with hematology following closely. General surgery following as well and has placed the patient on TPN and has received a PICC line. Electrolytes were replaced in magnesium above 2 and potassium 3.5. Patient's blood pressure on the lower side most likely multifactorial with pain medications and low blood count will add midodrine. Kidney functions worsened along with patient's sodium becoming hyponatremic although difficult to give IV fluids as patient overload easily. Will consult nephrology and appreciate input and recommendations. Patient is afebrile with no reports of nausea or vomiting noted. No reported chest pain or worsening shortness of breath at this time. Patient needs increased activity as tolerated and sitting up in the chair more often. Would recommend PT/OT therapy daily. 02/01/2023 Patient is seen in follow-up today reports she is not feeling well and per nursing staff has been having fevers overnight and continued on antibiotics for diverticulitis with surgery following. Hematology/oncology following as well and planning for possible bone marrow biopsy tomorrow. Patient is continued on TPN and has PICC line continues with indwelling Fermin catheter. Patient is reporting diarrhea and abdominal distention with pain. Infectious disease consulted and pending. Blood sugars have been elevated and was continued on sliding scale and will continue and add long-acting as well. No reports of chest pain or palpitations noted. Patient is wearing oxygen does not normally wear oxygen outpatient. Patient continues with generalized weakness and is continued on clear liquids. Review of systems: Constitutional: No reports of fatigue, reports fever, or chills Cardiovascular: No reports of chest pain or palpitations Respiratory: No reports of shortness of breath or cough GI: No reports of nausea, vomiting, or diarrhea, reports abdominal pain and distention : No reports of dysuria or retention Neurovascular: reports of generalized weakness All medications have been reviewed Active Medications Acetaminophen (Acetaminophen Tab 325 Mg Tab) 650 mg PO Q6HR PRN PRN Reason: Fever and/ or Mild Pain Last Admin: 02/01/23 20:43 Dose: 650 mg Hydrocodone Bitart/Acetaminophen (Hydrocodone/Apap 5-325mg 1 Each Tab) 1 each PO Q6HR PRN PRN Reason: Pain Last Admin: 01/30/23 15:07 Dose: 1 each Albuterol Sulfate (Albuterol Hfa Inhaler) 2 puff INHALATION RT-QID PRN PRN Reason: Shortness Of Breath Last Admin: 01/26/23 21:54 Dose: 2 puff Atorvastatin Calcium (Atorvastatin 40 Mg Tab) 40 mg PO HS ON LICENSE OF [facility] Last Admin: 02/01/23 20:43 Dose: 40 mg Baclofen (Baclofen 10 Mg Tab) 10 mg PO HS ON LICENSE OF [facility] Last Admin: 02/01/23 20:43 Dose: 10 mg Ferrous Sulfate (Ferrous Sulfate 325 Mg Tab) 325 mg PO BID-W/MEALS ON LICENSE OF [facility] Last Admin: 02/01/23 17:22 Dose: 325 mg Fluticasone Propionate (Fluticasone 50mcg/[place] Nasal 16gm) 2 spray EA NOSTRIL DAILY PRN PRN Reason: allergies Last Admin: 01/28/23 16:26 Dose: 2 spray Hydromorphone HCl (Hydromorphone 1 Mg/Ml 1 Ml Syringe) 1 mg IVP Q3H PRN PRN Reason: Moderate to Severe Pain (4-10) Last Admin: 02/01/23 20:44 Dose: 1 mg Metronidazole 500 mg/ IV (Solution) 100 mls @ 100 mls/hr IVPB Q8HR ON LICENSE OF [facility]; Protocol Last Admin: 02/02/23 00:46 Dose: 100 mls/hr Fat Emulsion Intravenous 250 (ml/ IV Solution) 250 mls @ 21 mls/hr IV TuFr ON LICENSE OF [facility] Last Admin: 01/30/23 15:07 Dose: 21 mls/hr Sodium Chloride 40 meq/Potassium Acetate 36 meq/Magnesium Sulfate 0.75 gm/Calcium Gluconate 1 gm/ Sodium Phosphate 9 mmol/ Amino Acids /Dextrose 1,042.5 mls @ 65 mls/hr IV .BY DURATION ON LICENSE OF [facility] Parenteral Vitamin Supplement 10 ml/ Zinc/Copper/Manganese/Selenium 1 ml/ Sodium Chloride 40 meq/ Potassium Acetate 36 meq/ Magnesium Sulfate 0.75 gm / Calcium Gluconate 1 gm/Sodium Phosphate 9 mmol/ Amino Acids/Dextrose 1,053.5 mls @ 65 mls/hr IV .BY DURATION ON LICENSE OF [facility] Last Admin: 02/02/23 00:47 Dose: 65 mls/hr Sodium Chloride (Saline 0.9%) 1,000 mls @ 50 mls/hr IV .Q20H ON LICENSE OF [facility] Last Admin: 02/01/23 12:14 Dose: 50 mls/hr Aztreonam 2 gm/ Sodium (Chloride) 100 mls @ 33.3 mls/hr IVPB Q8HR ON LICENSE OF [facility]; Protocol Last Admin: 02/01/23 23:29 Dose: 33.3 mls/hr Insulin Aspart (Insulin Aspart (Novolog) 100 Unit/Ml Vial) 0 unit SQ Q6HR ON LICENSE OF [facility]; Protocol Last Admin: 02/01/23 23:29 Dose: 6 unit Insulin Detemir (Insulin Detemir (Levemir) 100 Unit/Ml Syr) 10 unit SQ BID ON LICENSE OF [facility] Lidocaine HCl (Lidocaine 1% (10mg/Ml) For Iv Start) 0.1 ml INTRADERMA PER PROTOCOL PRN PRN Reason: IV Start Midodrine (Midodrine 5 Mg Tab) 5 mg PO AC-TID PRN PRN Reason: Hypotension Miscellaneous Information (Potassium Replacement Protocol 1 Each Misc) 1 each MISCELLANE DAILY PRN; Protocol PRN Reason: Per Protocol Miscellaneous Information (Magnesium Replacement Protocol 1 Each Misc) 1 each MISCELLANE DAILY PRN; Protocol PRN Reason: Per Protocol Naloxone HCl (Naloxone 0.4 Mg/Ml 1 Ml Vial) 0.2 mg IV Q2M PRN PRN Reason: Opioid Reversal Ondansetron HCl (Ondansetron 4 Mg/2 Ml Vial) 4 mg IVP Q6HR PRN PRN Reason: Nausea And Vomiting Last Admin: 01/30/23 19:49 Dose: 4 mg Pantoprazole Sodium (Pantoprazole 40 Mg/10 Ml Vial) 40 mg IVP BID ON LICENSE OF [facility] Last Admin: 02/01/23 20:44 Dose: 40 mg Promethazine HCl (Promethazine 25 Mg Tab) 25 mg PO Q6HR PRN PRN Reason: Nausea Last Admin: 01/27/23 13:51 Dose: 25 mg Sertraline HCl (Sertraline 50 Mg Tab) 50 mg PO DAILY ON LICENSE OF [facility] Last Admin: 02/01/23 09:28 Dose: 50 mg Simethicone (Simethicone 80 Mg Chewable) 80 mg PO QID ON LICENSE OF [facility] Last Admin: 02/01/23 20:43 Dose: 80 mg Physical exam: GENERAL: The patient is alert and oriented x3, Well developed, well nourished. Obese HEENT: Pupils are round and equally reacting to light. EOMI. No scleral icterus. No conjunctival pallor. Normocephalic, atraumatic. No pharyngeal erythema. No thyromegaly. CARDIOVASCULAR: S1 and S2 present. No murmurs, rubs, or gallops. PULMONARY: Chest is clear to auscultation, no wheezing or crackles. ABDOMEN: Soft, obese, lower abdominal tenderness with some bloating, nondistended, normoactive bowel sounds. No palpable organomegaly. MUSCULOSKELETAL: No joint swelling or deformity. EXTREMITIES: No cyanosis, clubbing, or pedal edema. NEUROLOGICAL: Gross neurological examination did not reveal any focal deficits. Diffusely weak SKIN: No rashes. no petechiae. Assessment: Acute anemia, mostly acute blood loss anemia, associated with abdominal pain and sigmoid diverticulitis Diverticular disease as noted on colonoscopy Sigmoid diverticulitis Acute kidney injury, multifactorial possibly secondary to hypotension as well as poor oral intake Severe protein calorie malnutrition secondary to above Anemia likely iron deficiency Elevated blast cells, currently 9%, possibly secondary to previous chemotherapy or due to recent GI bleeding Atrial Fibrillation, on Eliquis (ON HOLD) status post Permanent Pacemaker history of anterior abdominal wall fluid collection could be related to seroma Coronary Artery Disease history, status post stent Obesity with BMI of 30.5 COPD, not in exacerbation CVA/TIA history with left foot drop Diabetes Mellitus, uncontrolled with hyperglycemia GERD/Reflux Hyperlipidemia Hypertension Sleep Apnea/CPAP/BIPAP Diabetic neuropathy bilateral legs/feet History of colon cancer with revision/colostomy since reversed and chemo/radiation History of PVD Full code Plan: Recommend continue with antibiotics in the form of Flagyl and Levaquin being discontinued and being started on history alone a.m. with infectious disease consulted as patient is now having fevers and feeling worse, obtaining urinaly sis with culture as well as blood cultures and inflammatory markers. Pro- calcitonin ordered and pending at this time recommend incentive spirometer at least 10 times every hour while awake and increased activity as tolerated Gen. surgery following this patient is status post endoscopy with no active bleeding noted likely diverticular Blood sugars elevated and uncontrolled we'll continue sliding scale and will add long-acting insulin recommend monitor Accu-Cheks closely Patient did receive 2 units of PRBCs yesterday and hemoglobin improved Oncology following planning for possible bone marrow biopsy on Thursday Recommend follow-up labs in a.m. Patient received a PICC line for nutrition and has been started on TPN with dietitian following closely Recommend continue holding eliquis at this time with concerns for possible GI bleed Recommend to continue IV Protonix twice daily Due to multiple complex medical issues, prognosis is extremely guarded The impression and plan of care has been dictated as a scribe by Mindy Saleh, Nurse Practitioner as directed. Dr. Rajani MD I have performed a history and examination and MDM of this patient, discussed the same with the dictator, and will be documented as a scribe. Based on total visit time, I have performed more than 50% of the visit. Objective - Vital Signs Vital signs: Vital Signs Temp 99.1 F 02/01/23 08:05 Pulse 80 02/01/23 08:05 Resp 18 02/01/23 08:05 BP 118/59 02/01/23 08:05 Pulse Ox 93 L 02/01/23 08:05 FiO2 21 01/25/23 08:26 Intake & Output 01/31/23 02/01/23 02/01/23 18:59 06:59 18:59 Intake Total 870 100 Output Total 300 250 Balance 570 -250 100 Intake: Intake, IV Titration 250 100 Amount Levofloxacin 750Mg-D5w 150 Pmx 750 mg In Dextrose/ Water 1 150ml.bag @ 100 mls/hr IVPB Q48H [facility] Rx#: [id number] metroNIDAZOLE-NS PMX 500 100 100 mg In Saline 1 100ml.bag @ 100 mls/hr IVPB Q8HR [facility] Rx#:[id number] Blood Product 620 Rc As-1 Unit 310 [id number] Output: Urine 300 250 Other: Voiding Method Toilet Toilet Toilet Bedside Commode Bedside Commode Bedside Commode - Labs CBC & Chem 7: 02/01/23 06:09 02/01/23 06:09 Labs: Abnormal Lab Results - Last 24 Hours (Table) 01/31/23 01/31/23 01/31/23 Range/Units 06:17 09:56 11:50 WBC (3.8-10.6) k/uL RBC (3.80-5.40) m/uL Hgb (11.4-16.0) gm/dL Hct (34.0-46.0) % MCV (80.0-100.0) fL RDW (11.5-15.5) % Blast Cells % 6 H* % Neutrophils # (Manual) 8.40 H (1.3-7.7) k/uL Metamyelocytes # (Man) 0.12 H (0) k/uL Blast Cells # (Man) 0.73 H (0) k/uL Sodium (137-145) mmol/L BUN (7-17) mg/dL Glucose (74-99) mg/dL POC Glucose (mg/dL) 293 H (70-110) mg/dL Calcium (8.4-10.2) mg/dL Crossmatch See Detail 01/31/23 01/31/23 02/01/23 Range/Units 16:42 23:55 05:40 WBC (3.8-10.6) k/uL RBC (3.80-5.40) m/uL Hgb (11.4-16.0) gm/dL Hct (34.0-46.0) % MCV (80.0-100.0) fL RDW (11.5-15.5) % Blast Cells % % Neutrophils # (Manual) (1.3-7.7) k/uL Metamyelocytes # (Man) (0) k/uL Blast Cells # (Man) (0) k/uL Sodium (137-145) mmol/L BUN (7-17) mg/dL Glucose (74-99) mg/dL POC Glucose (mg/dL) 239 H 290 H 339 H (70-110) mg/dL Calcium (8.4-10.2) mg/dL Crossmatch 02/01/23 02/01/23 Range/Units 06:09 06:09 WBC 14.4 H (3.8-10.6) k/uL RBC 2.87 L (3.80-5.40) m/uL Hgb 7.4 L (11.4-16.0) gm/dL Hct 22.9 L (34.0-46.0) % MCV 79.7 L (80.0-100.0) fL RDW 24.0 H (11.5-15.5) % Blast Cells % % Neutrophils # (Manual) (1.3-7.7) k/uL Metamyelocytes # (Man) (0) k/uL Blast Cells # (Man) (0) k/uL Sodium 130 L (137-145) mmol/L BUN 27 H (7-17) mg/dL Glucose 287 H (74-99) mg/dL POC Glucose (mg/dL) (70-110) mg/dL Calcium 7.5 L (8.4-10.2) mg/dL Crossmatch
[2023-02-02] MEDS: HYDROcodone/APAP 5-325MG 1 EACH TAB PO PRN ×3 (02:32→17:43)
[2023-02-02] MEDS: ACETAMINOPHEN TAB 325 MG TAB PO PRN ×2 (02:33→09:35)
[2023-02-02 06:19] LABS: Glucose,Whole Blood 396 mg/dL (70-110)
[2023-02-02] MEDS: FERROUS SULFATE 325 MG TAB PO SCH ×2 (06:47→17:07)
[2023-02-02] MEDS: SODIUM CHLORIDE 0.9% 1,000 ML IV SCH (06:47)
[2023-02-02] MEDS: INSULIN ASPART (NovoLOG) 100 UNIT/ML VIAL SQ SCH ×4 (06:47→23:18)
[2023-02-02 07:59] LABS: Anisocytosis Marked; HCT 27.6 % (34.0-46.0); HGB 8.5 gm/dL (11.4-16.0); Hypochromasia Moderate; MCH 24.8 pg (25.0-35.0); MCHC 30.9 g/dL (31.0-37.0); MCV 80.2 fL (80.0-100.0); Mean Platelet Volume 8.3; Microcytosis Moderate; Platelet Count 144 k/uL (150-450); Poikilocytosis Slight; RBC 3.45 m/uL (3.80-5.40); RDW 24.6 % (11.5-15.5); WBC 12.5 k/uL (3.8-10.6)
[2023-02-02] MEDS: AZTREONAM 2 GM in SODIUM CHLORIDE 0.9% 100 ML IVPB SCH ×3 (08:00→17:07)
--- NOTE | 2023-02-02 08:29 | IR ---
EXAMINATION TYPE: IR cvc insert >=5 years DATE OF EXAM: 01/30/2023 CLINICAL HISTORY: Central line placement. TECHNIQUE: Fluoroscopy. COMPARISON: None. FINDINGS: Fluoroscopic guidance was provided during central line insertion procedure performed by va scular surgeon. A total of 6 seconds of fluoroscopic time was utilized during the procedure and 45 s pot images was acquired. Images acquired show left-sided access. IMPRESSION: As Above. TOTAL DAP = 0/105 Gy x cm2
[2023-02-02 08:54] LABS: African American GFR (CKD) >90 (>60 ml/min/1.73 sqM); Albumin 2.5 g/dL (3.5-5.0); Anion Gap 9 mmol/L; Blood Urea Nitrogen 27 mg/dL (7-17); Carbon Dioxide 21 mmol/L (22-30); Chloride 101 mmol/L (98-107); Glucose 333 mg/dL (74-99); Non-African American GFR(CKD) 89 (>60 ml/min/1.73 sqM); Potassium 4.6 mmol/L (3.5-5.1); Sodium 131 mmol/L (137-145); Total Protein 5.3 g/dL (6.3-8.2)
[2023-02-02 08:55] LABS: ALT 29 U/L (4-34); AST 47 U/L (14-36); Alkaline Phosphatase 84 U/L (38-126); Calcium 7.6 mg/dL (8.4-10.2); Magnesium 1.5 mg/dL (1.6-2.3); Total Bilirubin 0.9 mg/dL (0.2-1.3)
[2023-02-02] MEDS ORDERED: INSULIN DETEMIR (LEVEMIR) 100 UNIT/ML SYR SQ SCH (09:00)
[2023-02-02 09:19] LABS: Band Neutrophils % 2 %; Basophils # (M) 0.13 k/uL (0-0.2); Blast Cells # (M) 0.88 k/uL (0); Lymphocytes # (M) 2.63 k/uL (1.0-4.8); Metamyelocytes % 4 %; Myelocytes # (M) 0.13 k/uL (0); Myelocytes % 1 %; Neutrophils % (M) 59 %; Nucleated Red Blood Cells 0 /100 WBC (0-0); Total Cells Counted 200
[2023-02-02 09:21] LABS: RBC Fragments Present
[2023-02-02] MEDS: PANTOPRAZOLE 40 MG/10 ML VIAL IVP SCH ×2 (09:27→20:58)
[2023-02-02] MEDS: SERTRALINE 50 MG TAB PO SCH (09:28)
[2023-02-02] MEDS: SIMETHICONE 80 MG CHEWABLE PO SCH ×4 (09:28→20:58)
[2023-02-02 09:54] LABS: T4, Free (Free Thyroxine) 1.08 ng/dL (0.78-2.19)
[2023-02-02] MEDS: MAGNESIUM SULFATE-D5W PMX 1 GM in DEXTROSE/WATER 1 100ML.BAG IVPB SCH ×2 (10:16→11:36)
[2023-02-02] MEDS: INSULIN DETEMIR (LEVEMIR) 100 UNIT/ML SYR SQ SCH ×2 (10:16→20:58)
[2023-02-02] MEDS: ALBUTEROL HFA INHALER INHALATION PRN ×3 (10:30→17:22)
--- NOTE | 2023-02-02 11:05 | P.PN ---
Subjective Patient is seen in follow-up for hyponatremia and acute kidney injury. GFR is back to baseline. Sodium level 131 today with blood glucose at 333. Resting in bed. Oral intake is poor. Febrile this morning. Blood pressure stable. Vital signs are stable. General: No acute distress. HEENT: Head exam is unremarkable. On nasal cannula. LUNGS: Scattered rhonchi. HEART: Rate and Rhythm are regular. ABDOMEN: Mild generalized tenderness. No distention. EXTREMITITES: No edema. Objective - Vital Signs Vital signs: Vital Signs Temp 101.5 F H 02/02/23 09:25 Pulse 105 H 02/02/23 09:25 Resp 22 02/02/23 09:25 BP 158/73 02/02/23 09:25 Pulse Ox 92 L 02/02/23 10:46 FiO2 21 01/25/23 08:26 Intake & Output 02/01/23 02/02/23 02/02/23 18:59 06:59 18:59 Intake Total 1020 1085 Output Total 800 300 Balance 220 1085 -300 Intake: IV 230 Invasive Line 4 230 Intake, IV Titration 1020 855 Amount Aztreonam 2 gm In Sodium 100 Chloride 0.9% 100 ml @ 33 .3 mls/hr IVPB Q8HR [facility] Rx#:[id number] Mvi, Adult No.4 with Vit 520 455 K 10 ml Trace (Conc-1Ml/ Dose) 1 ml Sodium Chloride 4Meq/ml Vial 44 meq Potassium Acetate 36 meq Magnesium Sulfate gm 0.5 gm Calcium Gluconate 1 gm In Amino Acids 5 %/ Dextrose 20 % 1,000 ml @ 65 mls/hr IV .BY DURATION [facility] Rx#:[id number] Sodium Chloride 0.9% 1, 300 300 000 ml @ 50 mls/hr IV . Q20H [facility] Rx#:[id number] metroNIDAZOLE-NS PMX 500 200 mg In Saline 1 100ml.bag @ 100 mls/hr IVPB Q8HR [facility] Rx#:[id number] Output: Urine 800 300 Other: Voiding Method Toilet Bedside Commode Bedside Commode Bedside Commode # Bowel Movements 1 - Labs CBC & Chem 7: 02/02/23 07:36 02/02/23 07:36 Labs: Abnormal Lab Results - Last 24 Hours (Table) 03/18/23 03/19/23 03/19/23 Range/Units 09:56 06:09 11:32 WBC (3.8-10.6) k/uL RBC (3.80-5.40) m/uL Hgb (11.4-16.0) gm/dL Hct (34.0-46.0) % MCH (25.0-35.0) pg MCHC (31.0-37.0) g/dL RDW (11.5-15.5) % Plt Count (150-450) k/uL Blast Cells % 8 H* % Neutrophils # (Manual) 10.30 H (1.3-7.7) k/uL Eosinophils # (Manual) 0.72 H (0-0.7) k/uL Metamyelocytes # (Man) 0.29 H (0) k/uL Myelocytes # (Manual) (0) k/uL Blast Cells # (Man) 1.15 H (0) k/uL Sodium (137-145) mmol/L Carbon Dioxide (22-30) mmol/L BUN (7-17) mg/dL Glucose (74-99) mg/dL POC Glucose (mg/dL) (70-110) mg/dL Calcium (8.4-10.2) mg/dL Magnesium (1.6-2.3) mg/dL AST (14-36) U/L C-Reactive Protein 14.2 H (<1.0) mg/dL Total Protein (6.3-8.2) g/dL Albumin (3.5-5.0) g/dL Procalcitonin (0.02-0.09) ng/mL TSH (0.465-4.680) mIU/L Urine Protein (Negative) Urine Glucose (UA) (Negative) Ur Leukocyte Esterase (Negative) Urine Mucus (None) /hpf Ur Random Sodium (40-220) mmol/L Crossmatch See Detail 02/01/23 02/01/23 02/01/23 Range/Units 11:32 11:57 16:45 WBC (3.8-10.6) k/uL RBC (3.80-5.40) m/uL Hgb (11.4-16.0) gm/dL Hct (34.0-46.0) % MCH (25.0-35.0) pg MCHC (31.0-37.0) g/dL RDW (11.5-15.5) % Plt Count (150-450) k/uL Blast Cells % % Neutrophils # (Manual) (1.3-7.7) k/uL Eosinophils # (Manual) (0-0.7) k/uL Metamyelocytes # (Man) (0) k/uL Myelocytes # (Manual) (0) k/uL Blast Cells # (Man) (0) k/uL Sodium (137-145) mmol/L Carbon Dioxide (22-30) mmol/L BUN (7-17) mg/dL Glucose (74-99) mg/dL POC Glucose (mg/dL) 395 H 370 H (70-110) mg/dL Calcium (8.4-10.2) mg/dL Magnesium (1.6-2.3) mg/dL AST (14-36) U/L C-Reactive Protein (<1.0) mg/dL Total Protein (6.3-8.2) g/dL Albumin (3.5-5.0) g/dL Procalcitonin 0.32 H (0.02-0.09) ng/mL TSH (0.465-4.680) mIU/L Urine Protein (Negative) Urine Glucose (UA) (Negative) Ur Leukocyte Esterase (Negative) Urine Mucus (None) /hpf Ur Random Sodium (40-220) mmol/L Crossmatch 02/01/23 02/01/23 02/01/23 Range/Units 16:53 16:53 20:51 WBC (3.8-10.6) k/uL RBC (3.80-5.40) m/uL Hgb (11.4-16.0) gm/dL Hct (34.0-46.0) % MCH (25.0-35.0) pg MCHC (31.0-37.0) g/dL RDW (11.5-15.5) % Plt Count (150-450) k/uL Blast Cells % % Neutrophils # (Manual) (1.3-7.7) k/uL Eosinophils # (Manual) (0-0.7) k/uL Metamyelocytes # (Man) (0) k/uL Myelocytes # (Manual) (0) k/uL Blast Cells # (Man) (0) k/uL Sodium (137-145) mmol/L Carbon Dioxide (22-30) mmol/L BUN (7-17) mg/dL Glucose (74-99) mg/dL POC Glucose (mg/dL) 356 H (70-110) mg/dL Calcium (8.4-10.2) mg/dL Magnesium (1.6-2.3) mg/dL AST (14-36) U/L C-Reactive Protein (<1.0) mg/dL Total Protein (6.3-8.2) g/dL Albumin (3.5-5.0) g/dL Procalcitonin (0.02-0.09) ng/mL TSH (0.465-4.680) mIU/L Urine Protein Trace H (Negative) Urine Glucose (UA) 3+ H (Negative) Ur Leukocyte Esterase Trace H (Negative) Urine Mucus Rare H (None) /hpf Ur Random Sodium 29 L (40-220) mmol/L Crossmatch 02/01/23 02/02/23 02/02/23 Range/Units 23:27 06:16 07:36 WBC 12.5 H (3.8-10.6) k/uL RBC 3.45 L (3.80-5.40) m/uL Hgb 8.5 L (11.4-16.0) gm/dL Hct 27.6 L (34.0-46.0) % MCH 24.8 L (25.0-35.0) pg MCHC 30.9 L (31.0-37.0) g/dL RDW 24.6 H (11.5-15.5) % Plt Count 144 L (150-450) k/uL Blast Cells % 7 H* % Neutrophils # (Manual) (1.3-7.7) k/uL Eosinophils # (Manual) (0-0.7) k/uL Metamyelocytes # (Man) 0.50 H (0) k/uL Myelocytes # (Manual) 0.13 H (0) k/uL Blast Cells # (Man) 0.88 H (0) k/uL Sodium (137-145) mmol/L Carbon Dioxide (22-30) mmol/L BUN (7-17) mg/dL Glucose (74-99) mg/dL POC Glucose (mg/dL) 379 H 396 H (70-110) mg/dL Calcium (8.4-10.2) mg/dL Magnesium (1.6-2.3) mg/dL AST (14-36) U/L C-Reactive Protein (<1.0) mg/dL Total Protein (6.3-8.2) g/dL Albumin (3.5-5.0) g/dL Procalcitonin (0.02-0.09) ng/mL TSH (0.465-4.680) mIU/L Urine Protein (Negative) Urine Glucose (UA) (Negative) Ur Leukocyte Esterase (Negative) Urine Mucus (None) /hpf Ur Random Sodium (40-220) mmol/L Crossmatch 02/02/23 Range/Units 07:36 WBC (3.8-10.6) k/uL RBC (3.80-5.40) m/uL Hgb (11.4-16.0) gm/dL Hct (34.0-46.0) % MCH (25.0-35.0) pg MCHC (31.0-37.0) g/dL RDW (11.5-15.5) % Plt Count (150-450) k/uL Blast Cells % % Neutrophils # (Manual) (1.3-7.7) k/uL Eosinophils # (Manual) (0-0.7) k/uL Metamyelocytes # (Man) (0) k/uL Myelocytes # (Manual) (0) k/uL Blast Cells # (Man) (0) k/uL Sodium 131 L (137-145) mmol/L Carbon Dioxide 21 L (22-30) mmol/L BUN 27 H (7-17) mg/dL Glucose 333 H (74-99) mg/dL POC Glucose (mg/dL) (70-110) mg/dL Calcium 7.6 L (8.4-10.2) mg/dL Magnesium 1.5 L (1.6-2.3) mg/dL AST 47 H (14-36) U/L C-Reactive Protein (<1.0) mg/dL Total Protein 5.3 L (6.3-8.2) g/dL Albumin 2.5 L (3.5-5.0) g/dL Procalcitonin (0.02-0.09) ng/mL TSH 6.810 H (0.465-4.680) mIU/L Urine Protein (Negative) Urine Glucose (UA) (Negative) Ur Leukocyte Esterase (Negative) Urine Mucus (None) /hpf Ur Random Sodium (40-220) mmol/L Crossmatch Assessment and Plan Plan: Assessment: 1. Acute kidney injury mostly prerenal secondary to acute blood loss anemia and hypotension. Also received IV contrast on 01/27/2023. Improved. Creatinine 0.68 today. UA benign. No hydronephrosis noted on imaging. 2. Acute GI bleed status post blood transfusion this admission. No active bleeding noted on colonoscopy. Hemoglobin 8.5 today. Hematology and surgery following. 3. Hyponatremia. Euvolemic. Due to poor solute intake and component of hypertonicity from hyperglycemia. Corrected sodium near normal. Urine sodium 29 and urine osmolality 655. TSH is slightly high at 6.8. Free T4 normal. 4. Hypomagnesemia from GI losses and poor intake. 5. Hypokalemia from poor intake and hypomagnesemia. Replaced. Improved. Plan: Maintain TPN per surgery. Maintain gentle IV hydration. Follow-up cortisol level. Blood sugar control. Replace magnesium. Check chest x-ray.
--- NOTE | 2023-02-02 11:23 | XR ---
EXAMINATION TYPE: XR chest 2V DATE OF EXAM: 02/02/2023 COMPARISON: 01/28/2023 HISTORY: 72-year-old female increased shortness of breath TECHNIQUE: PA and lateral views FINDINGS: Heart normal size. Endovascular aortic valve replacement. Loop recorder device projects along the lef t side of the heart. Left PICC tip at the mid to lower SVC. Heart remains normal size. Diffuse inters titial density along with small bilateral pleural effusions persist. New left parahilar, left midlung opacity. IMPRESSION: 1. New focal airspace disease left mid lung. Correlate for confluent pulmonary edema versus pneumonia . 2. Ongoing interstitial opacities along with small pleural effusions. Correlate for CHF with pulmonar y vascular congestion.
[2023-02-02 11:32] LABS: C Reactive Protein 18.5 mg/dL (<1.0)
[2023-02-02 11:51] LABS: Glucose,Whole Blood 443 mg/dL (70-110)
[2023-02-02] MEDS ORDERED: INSULIN ASPART (NovoLOG) 100 UNIT/ML VIAL SQ ONE (11:52)
[2023-02-02] MEDS ORDERED: LEVOFLOXACIN 750MG-D5W PMX 750 MG in DEXTROSE/WATER 1 150ML.BAG IVPB SCH (12:00)
--- NOTE | 2023-02-02 12:12 | P.PN ---
Subjective Progress Note Date: 02/02/23 Principal diagnosis: peripheral blasts In f/u pt cont to report N,V with any oral intake, only tolerating sips of water, she has had fever, reports sputum is now clear. In general she does not feel well, denies pain. Objective - Vital Signs Vital signs: Vital Signs Temp 101.5 F H 02/02/23 09:25 Pulse 105 H 02/02/23 09:25 Resp 22 02/02/23 09:25 BP 158/73 02/02/23 09:25 Pulse Ox 92 L 02/02/23 10:46 FiO2 21 01/25/23 08:26 Intake & Output 02/01/23 02/02/23 02/02/23 18:59 06:59 18:59 Intake Total 1020 1085 Output Total 800 300 Balance 220 1085 -300 Intake: IV 230 Invasive Line 4 230 Intake, IV Titration 1020 855 Amount Aztreonam 2 gm In Sodium 100 Chloride 0.9% 100 ml @ 33 .3 mls/hr IVPB Q8HR [facility] Rx#:[id number] Mvi, Adult No.4 with Vit 520 455 K 10 ml Trace (Conc-1Ml/ Dose) 1 ml Sodium Chloride 4Meq/ml Vial 44 meq Potassium Acetate 36 meq Magnesium Sulfate gm 0.5 gm Calcium Gluconate 1 gm In Amino Acids 5 %/ Dextrose 20 % 1,000 ml @ 65 mls/hr IV .BY DURATION [facility] Rx#:[id number] Sodium Chloride 0.9% 1, 300 300 000 ml @ 50 mls/hr IV . Q20H [facility] Rx#:[id number] metroNIDAZOLE-NS PMX 500 200 mg In Saline 1 100ml.bag @ 100 mls/hr IVPB Q8HR [facility] Rx#:[id number] Output: Urine 800 300 Other: Voiding Method Toilet Bedside Commode Bedside Commode Bedside Commode # Bowel Movements 1 - Constitutional General appearance: Present: average body habitus, cooperative, mild distress - EENT EENT Comment(s): severely coated tongue Eyes: Present: anicteric sclerae, EOMI ENT: Present: thrush - Respiratory Respiratory: left: rhonchi (base), bilateral: CTA - Cardiovascular Rhythm: regular Heart sounds: normal: S1, S2 Abnormal Heart Sounds: Present: systolic murmur - Peripheral edema leg Peripheral Edema: left: Other (LUE swelling ), bilateral: Trace - Gastrointestinal General gastrointestinal: Present: normal bowel sounds - Neurologic Neurologic: Present: CNII-XII intact (grossly) - Musculoskeletal Musculoskeletal: Present: generalized weakness, strength equal bilaterally - Psychiatric Psychiatric: Present: A&O x's 3, appropriate affect, intact judgment & insight - Labs CBC & Chem 7: 02/02/23 07:36 02/02/23 07:36 Labs: Abnormal Lab Results - Last 24 Hours (Table) 01/31/23 02/01/23 02/01/23 Range/Units 09:56 06:09 11:32 WBC (3.8-10.6) k/uL RBC (3.80-5.40) m/uL Hgb (11.4-16.0) gm/dL Hct (34.0-46.0) % MCH (25.0-35.0) pg MCHC (31.0-37.0) g/dL RDW (11.5-15.5) % Plt Count (150-450) k/uL Blast Cells % 8 H* % Neutrophils # (Manual) 10.30 H (1.3-7.7) k/uL Eosinophils # (Manual) 0.72 H (0-0.7) k/uL Metamyelocytes # (Man) 0.29 H (0) k/uL Myelocytes # (Manual) (0) k/uL Blast Cells # (Man) 1.15 H (0) k/uL Sodium (137-145) mmol/L Carbon Dioxide (22-30) mmol/L BUN (7-17) mg/dL Glucose (74-99) mg/dL POC Glucose (mg/dL) (70-110) mg/dL Calcium (8.4-10.2) mg/dL Magnesium (1.6-2.3) mg/dL AST (14-36) U/L C-Reactive Protein 14.2 H (<1.0) mg/dL Total Protein (6.3-8.2) g/dL Albumin (3.5-5.0) g/dL Procalcitonin (0.02-0.09) ng/mL TSH (0.465-4.680) mIU/L Urine Protein (Negative) Urine Glucose (UA) (Negative) Ur Leukocyte Esterase (Negative) Urine Mucus (None) /hpf Ur Random Sodium (40-220) mmol/L Crossmatch See Detail 02/01/23 02/01/23 02/01/23 Range/Units 11:32 11:57 16:45 WBC (3.8-10.6) k/uL RBC (3.80-5.40) m/uL Hgb (11.4-16.0) gm/dL Hct (34.0-46.0) % MCH (25.0-35.0) pg MCHC (31.0-37.0) g/dL RDW (11.5-15.5) % Plt Count (150-450) k/uL Blast Cells % % Neutrophils # (Manual) (1.3-7.7) k/uL Eosinophils # (Manual) (0-0.7) k/uL Metamyelocytes # (Man) (0) k/uL Myelocytes # (Manual) (0) k/uL Blast Cells # (Man) (0) k/uL Sodium (137-145) mmol/L Carbon Dioxide (22-30) mmol/L BUN (7-17) mg/dL Glucose (74-99) mg/dL POC Glucose (mg/dL) 395 H 370 H (70-110) mg/dL Calcium (8.4-10.2) mg/dL Magnesium (1.6-2.3) mg/dL AST (14-36) U/L C-Reactive Protein (<1.0) mg/dL Total Protein (6.3-8.2) g/dL Albumin (3.5-5.0) g/dL Procalcitonin 0.32 H (0.02-0.09) ng/mL TSH (0.465-4.680) mIU/L Urine Protein (Negative) Urine Glucose (UA) (Negative) Ur Leukocyte Esterase (Negative) Urine Mucus (None) /hpf Ur Random Sodium (40-220) mmol/L Crossmatch 02/01/23 02/01/23 02/01/23 Range/Units 16:53 16:53 20:51 WBC (3.8-10.6) k/uL RBC (3.80-5.40) m/uL Hgb (11.4-16.0) gm/dL Hct (34.0-46.0) % MCH (25.0-35.0) pg MCHC (31.0-37.0) g/dL RDW (11.5-15.5) % Plt Count (150-450) k/uL Blast Cells % % Neutrophils # (Manual) (1.3-7.7) k/uL Eosinophils # (Manual) (0-0.7) k/uL Metamyelocytes # (Man) (0) k/uL Myelocytes # (Manual) (0) k/uL Blast Cells # (Man) (0) k/uL Sodium (137-145) mmol/L Carbon Dioxide (22-30) mmol/L BUN (7-17) mg/dL Glucose (74-99) mg/dL POC Glucose (mg/dL) 356 H (70-110) mg/dL Calcium (8.4-10.2) mg/dL Magnesium (1.6-2.3) mg/dL AST (14-36) U/L C-Reactive Protein (<1.0) mg/dL Total Protein (6.3-8.2) g/dL Albumin (3.5-5.0) g/dL Procalcitonin (0.02-0.09) ng/mL TSH (0.465-4.680) mIU/L Urine Protein Trace H (Negative) Urine Glucose (UA) 3+ H (Negative) Ur Leukocyte Esterase Trace H (Negative) Urine Mucus Rare H (None) /hpf Ur Random Sodium 29 L (40-220) mmol/L Crossmatch 02/01/23 02/02/23 02/02/23 Range/Units 23:27 06:16 07:36 WBC 12.5 H (3.8-10.6) k/uL RBC 3.45 L (3.80-5.40) m/uL Hgb 8.5 L (11.4-16.0) gm/dL Hct 27.6 L (34.0-46.0) % MCH 24.8 L (25.0-35.0) pg MCHC 30.9 L (31.0-37.0) g/dL RDW 24.6 H (11.5-15.5) % Plt Count 144 L (150-450) k/uL Blast Cells % 7 H* % Neutrophils # (Manual) (1.3-7.7) k/uL Eosinophils # (Manual) (0-0.7) k/uL Metamyelocytes # (Man) 0.50 H (0) k/uL Myelocytes # (Manual) 0.13 H (0) k/uL Blast Cells # (Man) 0.88 H (0) k/uL Sodium (137-145) mmol/L Carbon Dioxide (22-30) mmol/L BUN (7-17) mg/dL Glucose (74-99) mg/dL POC Glucose (mg/dL) 379 H 396 H (70-110) mg/dL Calcium (8.4-10.2) mg/dL Magnesium (1.6-2.3) mg/dL AST (14-36) U/L C-Reactive Protein (<1.0) mg/dL Total Protein (6.3-8.2) g/dL Albumin (3.5-5.0) g/dL Procalcitonin (0.02-0.09) ng/mL TSH (0.465-4.680) mIU/L Urine Protein (Negative) Urine Glucose (UA) (Negative) Ur Leukocyte Esterase (Negative) Urine Mucus (None) /hpf Ur Random Sodium (40-220) mmol/L Crossmatch 02/02/23 02/02/23 Range/Units 07:36 11:30 WBC (3.8-10.6) k/uL RBC (3.80-5.40) m/uL Hgb (11.4-16.0) gm/dL Hct (34.0-46.0) % MCH (25.0-35.0) pg MCHC (31.0-37.0) g/dL RDW (11.5-15.5) % Plt Count (150-450) k/uL Blast Cells % % Neutrophils # (Manual) (1.3-7.7) k/uL Eosinophils # (Manual) (0-0.7) k/uL Metamyelocytes # (Man) (0) k/uL Myelocytes # (Manual) (0) k/uL Blast Cells # (Man) (0) k/uL Sodium 131 L (137-145) mmol/L Carbon Dioxide 21 L (22-30) mmol/L BUN 27 H (7-17) mg/dL Glucose 333 H (74-99) mg/dL POC Glucose (mg/dL) 443 H (70-110) mg/dL Calcium 7.6 L (8.4-10.2) mg/dL Magnesium 1.5 L (1.6-2.3) mg/dL AST 47 H (14-36) U/L C-Reactive Protein 18.5 H (<1.0) mg/dL Total Protein 5.3 L (6.3-8.2) g/dL Albumin 2.5 L (3.5-5.0) g/dL Procalcitonin (0.02-0.09) ng/mL TSH 6.810 H (0.465-4.680) mIU/L Urine Protein (Negative) Urine Glucose (UA) (Negative) Ur Leukocyte Esterase (Negative) Urine Mucus (None) /hpf Ur Random Sodium (40-220) mmol/L Crossmatch Assessment and Plan (1) Abnormal CBC Current Visit: Yes Status: Acute Priority: High Code(s): R79.89 - OTHER SPECIFIED ABNORMAL FINDINGS OF BLOOD CHEMISTRY SNOMED Code(s): 469166809 (2) Nausea and vomiting Current Visit: Yes Status: Acute Priority: High Code(s): R11.2 - NAUSEA WITH VOMITING, UNSPECIFIED SNOMED Code(s): 05355823 (3) Weakness Current Visit: Yes Status: Acute Priority: High Code(s): R53.1 - WEAKNESS SNOMED Code(s): 20810336 Plan: Peripheral blasts -Reviewed with pt her abnormal lab values. Blasts persist in the peripheral blood. BM Bx and aspirate were previously discussed with pt for possible diagnosis. She is agreeable to the same. Orders being placed for procedure tomorrow at noon -Plan for f/u with Clinical Laboratory Science Professor 2 weeks for BM results -CBC stable today, Hgb stable after unit PRBCs on the . Fever, N,V -ID consulted. -TPN for now
[2023-02-02] MEDS ORDERED: FUROSEMIDE 10 MG/ML 4 ML VIAL IV STA (12:59)
--- NOTE | 2023-02-02 13:56 | P.PN ---
Subjective Progress Note Date: 02/02/23 CHIEF COMPLAINT: Diverticular bleed HISTORY OF PRESENT ILLNESS: Patient status post colonoscopy revealing diverticulosis. There is no evidence of active GI bleed. It is presumed patient had bleeding from diverticular disease. Patient complaining of a congested productive cough. She is more short of breath. Chest x-ray completed showing new focal airspace disease left midlung. Correlate for pneumonia versus pulmonary edema. Ongoing interstitial opacities along the small pleural effusions. Patient reports some improvement in her abdominal pain. She reports that her stools are black. She is on iron. She denies any nausea or vomiting. Oral intake is decreased. Antibiotics changed per infectious disease. Patient febrile this morning temporal 101.5 mildly tachycardic. Currently on 6 L. WBC down from 14-12.5 hemoglobin 8.5 platelets 144 blast cells 7. Patient followed by hematology. Scheduled for bone marrow biopsy tomorrow Patient seen and examined with Dr. Sierra PHYSICAL EXAM: VITAL SIGNS: Reviewed. GENERAL: Well-developed in no acute distress. HEENT: No sclera icterus. Extraocular movements grossly intact. Moist buccal mucosa. Head is atraumatic, normocephalic. ABDOMEN: Soft. Nondistended. Mild tenderness left lower abdomen NEUROLOGIC: Alert and oriented. Cranial nerves II through XII grossly intact. ASSESSMENT: 1. Acute GI bleed likely due to a diverticular bleed 2. Acute sigmoid diverticulitis. No further evidence of diverticulitis on CT 3. Abdominal pain and vomiting 4. Leukocytosis PLAN: -Continue clear liquid diet -Continue antibiotics -Continue TPN for nutrition support -Continue to hold Plavix and Eliquis -No surgical intervention planned Physician Platform Supervisor note has been reviewed by physician. Signing provider agrees with the documented findings, assessment, and plan of care. Objective - Vital Signs Vital signs: Vital Signs Temp 100 F H 02/02/23 11:35 Pulse 101 H 02/02/23 11:35 Resp 22 02/02/23 11:35 BP 104/59 02/02/23 11:35 Pulse Ox 93 L 02/02/23 11:35 FiO2 21 01/25/23 08:26 Intake & Output 02/01/23 02/02/23 02/02/23 18:59 06:59 18:59 Intake Total 1020 1085 Output Total 800 300 Balance 220 1085 -300 Intake: IV 230 Invasive Line 4 230 Intake, IV Titration 1020 855 Amount Aztreonam 2 gm In Sodium 100 Chloride 0.9% 100 ml @ 33 .3 mls/hr IVPB Q8HR [facility] Rx#:[id number] Mvi, Adult No.4 with Vit 520 455 K 10 ml Trace (Conc-1Ml/ Dose) 1 ml Sodium Chloride 4Meq/ml Vial 44 meq Potassium Acetate 36 meq Magnesium Sulfate gm 0.5 gm Calcium Gluconate 1 gm In Amino Acids 5 %/ Dextrose 20 % 1,000 ml @ 65 mls/hr IV .BY DURATION [facility] Rx#:[id number] Sodium Chloride 0.9% 1, 300 300 000 ml @ 50 mls/hr IV . Q20H [facility] Rx#:[id number] metroNIDAZOLE-NS PMX 500 200 mg In Saline 1 100ml.bag @ 100 mls/hr IVPB Q8HR [facility] Rx#:[id number] Output: Urine 800 300 Other: Voiding Method Toilet Bedside Commode Bedside Commode Bedside Commode # Bowel Movements 1 - Labs CBC & Chem 7: 02/02/23 07:36 02/02/23 07:36 Labs: Abnormal Lab Results - Last 24 Hours (Table) 01/31/23 02/01/23 02/01/23 Range/Units 09:56 06:09 11:32 WBC (3.8-10.6) k/uL RBC (3.80-5.40) m/uL Hgb (11.4-16.0) gm/dL Hct (34.0-46.0) % MCH (25.0-35.0) pg MCHC (31.0-37.0) g/dL RDW (11.5-15.5) % Plt Count (150-450) k/uL Blast Cells % 8 H* % Neutrophils # (Manual) 10.30 H (1.3-7.7) k/uL Eosinophils # (Manual) 0.72 H (0-0.7) k/uL Metamyelocytes # (Man) 0.29 H (0) k/uL Myelocytes # (Manual) (0) k/uL Blast Cells # (Man) 1.15 H (0) k/uL Sodium (137-145) mmol/L Carbon Dioxide (22-30) mmol/L BUN (7-17) mg/dL Glucose (74-99) mg/dL POC Glucose (mg/dL) (70-110) mg/dL Calcium (8.4-10.2) mg/dL Magnesium (1.6-2.3) mg/dL AST (14-36) U/L C-Reactive Protein (<1.0) mg/dL Total Protein (6.3-8.2) g/dL Albumin (3.5-5.0) g/dL Procalcitonin 0.32 H (0.02-0.09) ng/mL TSH (0.465-4.680) mIU/L Urine Protein (Negative) Urine Glucose (UA) (Negative) Ur Leukocyte Esterase (Negative) Urine Mucus (None) /hpf Ur Random Sodium (40-220) mmol/L Crossmatch See Detail 02/01/23 02/01/23 02/01/23 Range/Units 16:45 16:53 16:53 WBC (3.8-10.6) k/uL RBC (3.80-5.40) m/uL Hgb (11.4-16.0) gm/dL Hct (34.0-46.0) % MCH (25.0-35.0) pg MCHC (31.0-37.0) g/dL RDW (11.5-15.5) % Plt Count (150-450) k/uL Blast Cells % % Neutrophils # (Manual) (1.3-7.7) k/uL Eosinophils # (Manual) (0-0.7) k/uL Metamyelocytes # (Man) (0) k/uL Myelocytes # (Manual) (0) k/uL Blast Cells # (Man) (0) k/uL Sodium (137-145) mmol/L Carbon Dioxide (22-30) mmol/L BUN (7-17) mg/dL Glucose (74-99) mg/dL POC Glucose (mg/dL) 370 H (70-110) mg/dL Calcium (8.4-10.2) mg/dL Magnesium (1.6-2.3) mg/dL AST (14-36) U/L C-Reactive Protein (<1.0) mg/dL Total Protein (6.3-8.2) g/dL Albumin (3.5-5.0) g/dL Procalcitonin (0.02-0.09) ng/mL TSH (0.465-4.680) mIU/L Urine Protein Trace H (Negative) Urine Glucose (UA) 3+ H (Negative) Ur Leukocyte Esterase Trace H (Negative) Urine Mucus Rare H (None) /hpf Ur Random Sodium 29 L (40-220) mmol/L Crossmatch 02/01/23 02/01/23 02/02/23 Range/Units 20:51 23:27 06:16 WBC (3.8-10.6) k/uL RBC (3.80-5.40) m/uL Hgb (11.4-16.0) gm/dL Hct (34.0-46.0) % MCH (25.0-35.0) pg MCHC (31.0-37.0) g/dL RDW (11.5-15.5) % Plt Count (150-450) k/uL Blast Cells % % Neutrophils # (Manual) (1.3-7.7) k/uL Eosinophils # (Manual) (0-0.7) k/uL Metamyelocytes # (Man) (0) k/uL Myelocytes # (Manual) (0) k/uL Blast Cells # (Man) (0) k/uL Sodium (137-145) mmol/L Carbon Dioxide (22-30) mmol/L BUN (7-17) mg/dL Glucose (74-99) mg/dL POC Glucose (mg/dL) 356 H 379 H 396 H (70-110) mg/dL Calcium (8.4-10.2) mg/dL Magnesium (1.6-2.3) mg/dL AST (14-36) U/L C-Reactive Protein (<1.0) mg/dL Total Protein (6.3-8.2) g/dL Albumin (3.5-5.0) g/dL Procalcitonin (0.02-0.09) ng/mL TSH (0.465-4.680) mIU/L Urine Protein (Negative) Urine Glucose (UA) (Negative) Ur Leukocyte Esterase (Negative) Urine Mucus (None) /hpf Ur Random Sodium (40-220) mmol/L Crossmatch 02/02/23 02/02/23 02/02/23 Range/Units 07:36 07:36 11:30 WBC 12.5 H (3.8-10.6) k/uL RBC 3.45 L (3.80-5.40) m/uL Hgb 8.5 L (11.4-16.0) gm/dL Hct 27.6 L (34.0-46.0) % MCH 24.8 L (25.0-35.0) pg MCHC 30.9 L (31.0-37.0) g/dL RDW 24.6 H (11.5-15.5) % Plt Count 144 L (150-450) k/uL Blast Cells % 7 H* % Neutrophils # (Manual) (1.3-7.7) k/uL Eosinophils # (Manual) (0-0.7) k/uL Metamyelocytes # (Man) 0.50 H (0) k/uL Myelocytes # (Manual) 0.13 H (0) k/uL Blast Cells # (Man) 0.88 H (0) k/uL Sodium 131 L (137-145) mmol/L Carbon Dioxide 21 L (22-30) mmol/L BUN 27 H (7-17) mg/dL Glucose 333 H (74-99) mg/dL POC Glucose (mg/dL) 443 H (70-110) mg/dL Calcium 7.6 L (8.4-10.2) mg/dL Magnesium 1.5 L (1.6-2.3) mg/dL AST 47 H (14-36) U/L C-Reactive Protein 18.5 H (<1.0) mg/dL Total Protein 5.3 L (6.3-8.2) g/dL Albumin 2.5 L (3.5-5.0) g/dL Procalcitonin (0.02-0.09) ng/mL TSH 6.810 H (0.465-4.680) mIU/L Urine Protein (Negative) Urine Glucose (UA) (Negative) Ur Leukocyte Esterase (Negative) Urine Mucus (None) /hpf Ur Random Sodium (40-220) mmol/L Crossmatch
[2023-02-02 16:50] LABS: Glucose,Whole Blood 402 mg/dL (70-110)
[2023-02-02] MEDS: LACTATED RINGERS 1,000 ML IV SCH (20:13)
[2023-02-02 20:30] LABS: Glucose,Whole Blood 383 mg/dL (70-110)
[2023-02-02] MEDS: BACLOFEN 10 MG TAB PO SCH (20:58)
[2023-02-02] MEDS: ATORVASTATIN 40 MG TAB PO SCH (20:59)
[2023-02-02] MEDS: HYDROmorphone 1 MG/ML 1 ML SYRINGE IVP PRN (23:17)
--- NOTE | 2023-02-02 23:45 | P.PN ---
Subjective Progress Note Date: 02/02/23 Principal diagnosis: Fever possible pneumonia Patient is a 72-year-old female with a past medical history negative for hypertension hyperlipidemia diabetes mellitus CVA TIA cervical cancer did have a history of atrial fibrillation on anticoagulation presenting to the [facility] on 01/22/2023 for evaluation of rectal bleeding , patient diagnosed with diverticulitis and has been treated with Levaquin and Flagyl, patient did spike fever prompting this infection consultation. On today's evaluation early 02/02/2023, the patient did spike another fever of 101F this morning patient also complaining of shortness of breath is currently on 5 L nasal cannula patient mentioned bringing up some sputum but no hemoptysis nausea but no vomiting abdominal pain is controlled and no diarrhea Objective - Vital Signs Vital signs: Vital Signs Temp 101.5 F H 02/02/23 09:25 Pulse 105 H 02/02/23 09:25 Resp 22 02/02/23 09:25 BP 158/73 02/02/23 09:25 Pulse Ox 92 L 02/02/23 10:46 FiO2 21 01/25/23 08:26 Intake & Output 02/01/23 02/02/23 02/02/23 18:59 06:59 18:59 Intake Total 1020 1085 Output Total 800 300 Balance 220 1085 -300 Intake: IV 230 Invasive Line 4 230 Intake, IV Titration 1020 855 Amount Aztreonam 2 gm In Sodium 100 Chloride 0.9% 100 ml @ 33 .3 mls/hr IVPB Q8HR [facility] Rx#:[id number] Mvi, Adult No.4 with Vit 520 455 K 10 ml Trace (Conc-1Ml/ Dose) 1 ml Sodium Chloride 4Meq/ml Vial 44 meq Potassium Acetate 36 meq Magnesium Sulfate gm 0.5 gm Calcium Gluconate 1 gm In Amino Acids 5 %/ Dextrose 20 % 1,000 ml @ 65 mls/hr IV .BY DURATION ALIYAH Rx#:[id number] Sodium Chloride 0.9% 1, 300 300 000 ml @ 50 mls/hr IV . Q20H ALI[facility] Rx#:[id number] metroNIDAZOLE-NS PMX 500 200 mg In Saline 1 100ml.bag @ 100 mls/hr IVPB Q8HR ALI[facility] Rx#:[id number] Output: Urine 800 300 Other: Voiding Method Toilet Bedside Commode Bedside Commode Bedside Commode # Bowel Movements 1 - Exam GENERAL DESCRIPTION: An elderly female lying in bed in no distress RESPIRATORY SYSTEM: Unlabored breathing , decreased breath sounds at bases HEART: S1 S2 regular rate and rhythm , ABDOMEN: Soft , no tenderness EXTREMITIES: No edema feet - Labs CBC & Chem 7: 02/02/23 07:36 02/02/23 07:36 Labs: Abnormal Lab Results - Last 24 Hours (Table) 01/31/23 02/01/23 02/01/23 Range/Units 09:56 06:09 11:32 WBC (3.8-10.6) k/uL RBC (3.80-5.40) m/uL Hgb (11.4-16.0) gm/dL Hct (34.0-46.0) % MCH (25.0-35.0) pg MCHC (31.0-37.0) g/dL RDW (11.5-15.5) % Plt Count (150-450) k/uL Blast Cells % 8 H* % Neutrophils # (Manual) 10.30 H (1.3-7.7) k/uL Eosinophils # (Manual) 0.72 H (0-0.7) k/uL Metamyelocytes # (Man) 0.29 H (0) k/uL Myelocytes # (Manual) (0) k/uL Blast Cells # (Man) 1.15 H (0) k/uL Sodium (137-145) mmol/L Carbon Dioxide (22-30) mmol/L BUN (7-17) mg/dL Glucose (74-99) mg/dL POC Glucose (mg/dL) (70-110) mg/dL Calcium (8.4-10.2) mg/dL Magnesium (1.6-2.3) mg/dL AST (14-36) U/L C-Reactive Protein 14.2 H (<1.0) mg/dL Total Protein (6.3-8.2) g/dL Albumin (3.5-5.0) g/dL Procalcitonin (0.02-0.09) ng/mL TSH (0.465-4.680) mIU/L Urine Protein (Negative) Urine Glucose (UA) (Negative) Ur Leukocyte Esterase (Negative) Urine Mucus (None) /hpf Ur Random Sodium (40-220) mmol/L Crossmatch See Detail 02/01/23 02/01/23 02/01/23 Range/Units 11:32 11:57 16:45 WBC (3.8-10.6) k/uL RBC (3.80-5.40) m/uL Hgb (11.4-16.0) gm/dL Hct (34.0-46.0) % MCH (25.0-35.0) pg MCHC (31.0-37.0) g/dL RDW (11.5-15.5) % Plt Count (150-450) k/uL Blast Cells % % Neutrophils # (Manual) (1.3-7.7) k/uL Eosinophils # (Manual) (0-0.7) k/uL Metamyelocytes # (Man) (0) k/uL Myelocytes # (Manual) (0) k/uL Blast Cells # (Man) (0) k/uL Sodium (137-145) mmol/L Carbon Dioxide (22-30) mmol/L BUN (7-17) mg/dL Glucose (74-99) mg/dL POC Glucose (mg/dL) 395 H 370 H (70-110) mg/dL Calcium (8.4-10.2) mg/dL Magnesium (1.6-2.3) mg/dL AST (14-36) U/L C-Reactive Protein (<1.0) mg/dL Total Protein (6.3-8.2) g/dL Albumin (3.5-5.0) g/dL Procalcitonin 0.32 H (0.02-0.09) ng/mL TSH (0.465-4.680) mIU/L Urine Protein (Negative) Urine Glucose (UA) (Negative) Ur Leukocyte Esterase (Negative) Urine Mucus (None) /hpf Ur Random Sodium (40-220) mmol/L Crossmatch 02/01/23 02/01/23 02/01/23 Range/Units 16:53 16:53 20:51 WBC (3.8-10.6) k/uL RBC (3.80-5.40) m/uL Hgb (11.4-16.0) gm/dL Hct (34.0-46.0) % MCH (25.0-35.0) pg MCHC (31.0-37.0) g/dL RDW (11.5-15.5) % Plt Count (150-450) k/uL Blast Cells % % Neutrophils # (Manual) (1.3-7.7) k/uL Eosinophils # (Manual) (0-0.7) k/uL Metamyelocytes # (Man) (0) k/uL Myelocytes # (Manual) (0) k/uL Blast Cells # (Man) (0) k/uL Sodium (137-145) mmol/L Carbon Dioxide (22-30) mmol/L BUN (7-17) mg/dL Glucose (74-99) mg/dL POC Glucose (mg/dL) 356 H (70-110) mg/dL Calcium (8.4-10.2) mg/dL Magnesium (1.6-2.3) mg/dL AST (14-36) U/L C-Reactive Protein (<1.0) mg/dL Total Protein (6.3-8.2) g/dL Albumin (3.5-5.0) g/dL Procalcitonin (0.02-0.09) ng/mL TSH (0.465-4.680) mIU/L Urine Protein Trace H (Negative) Urine Glucose (UA) 3+ H (Negative) Ur Leukocyte Esterase Trace H (Negative) Urine Mucus Rare H (None) /hpf Ur Random Sodium 29 L (40-220) mmol/L Crossmatch 02/01/23 02/02/23 02/02/23 Range/Units 23:27 06:16 07:36 WBC 12.5 H (3.8-10.6) k/uL RBC 3.45 L (3.80-5.40) m/uL Hgb 8.5 L (11.4-16.0) gm/dL Hct 27.6 L (34.0-46.0) % MCH 24.8 L (25.0-35.0) pg MCHC 30.9 L (31.0-37.0) g/dL RDW 24.6 H (11.5-15.5) % Plt Count 144 L (150-450) k/uL Blast Cells % 7 H* % Neutrophils # (Manual) (1.3-7.7) k/uL Eosinophils # (Manual) (0-0.7) k/uL Metamyelocytes # (Man) 0.50 H (0) k/uL Myelocytes # (Manual) 0.13 H (0) k/uL Blast Cells # (Man) 0.88 H (0) k/uL Sodium (137-145) mmol/L Carbon Dioxide (22-30) mmol/L BUN (7-17) mg/dL Glucose (74-99) mg/dL POC Glucose (mg/dL) 379 H 396 H (70-110) mg/dL Calcium (8.4-10.2) mg/dL Magnesium (1.6-2.3) mg/dL AST (14-36) U/L C-Reactive Protein (<1.0) mg/dL Total Protein (6.3-8.2) g/dL Albumin (3.5-5.0) g/dL Procalcitonin (0.02-0.09) ng/mL TSH (0.465-4.680) mIU/L Urine Protein (Negative) Urine Glucose (UA) (Negative) Ur Leukocyte Esterase (Negative) Urine Mucus (None) /hpf Ur Random Sodium (40-220) mmol/L Crossmatch 02/02/23 Range/Units 07:36 WBC (3.8-10.6) k/uL RBC (3.80-5.40) m/uL Hgb (11.4-16.0) gm/dL Hct (34.0-46.0) % MCH (25.0-35.0) pg MCHC (31.0-37.0) g/dL RDW (11.5-15.5) % Plt Count (150-450) k/uL Blast Cells % % Neutrophils # (Manual) (1.3-7.7) k/uL Eosinophils # (Manual) (0-0.7) k/uL Metamyelocytes # (Man) (0) k/uL Myelocytes # (Manual) (0) k/uL Blast Cells # (Man) (0) k/uL Sodium 131 L (137-145) mmol/L Carbon Dioxide 21 L (22-30) mmol/L BUN 27 H (7-17) mg/dL Glucose 333 H (74-99) mg/dL POC Glucose (mg/dL) (70-110) mg/dL Calcium 7.6 L (8.4-10.2) mg/dL Magnesium 1.5 L (1.6-2.3) mg/dL AST 47 H (14-36) U/L C-Reactive Protein 18.5 H (<1.0) mg/dL Total Protein 5.3 L (6.3-8.2) g/dL Albumin 2.5 L (3.5-5.0) g/dL Procalcitonin (0.02-0.09) ng/mL TSH 6.810 H (0.465-4.680) mIU/L Urine Protein (Negative) Urine Glucose (UA) (Negative) Ur Leukocyte Esterase (Negative) Urine Mucus (None) /hpf Ur Random Sodium (40-220) mmol/L Crossmatch Assessment and Plan (1) Fever Current Visit: Yes Status: Acute Code(s): R50.9 - FEVER, UNSPECIFIED SNOMED Code(s): 858903715 Plan: 1patient with sepsis in this patient who did have a fever elevated white count present to the hospital predominantly with the GI symptoms specially with abdominal pain and bleeding per rectum patient bleeding seems to have improved however still complaining of diarrhea with admission CT did shows evidence of sigmoid diverticulitis patient also have some urinary symptoms and with exposure to antibiotics concerning for possible CVA versus UTI. 2patient with multiple antibiotic allergies that would limit the number of antibiotics safe to use. 3patient did have elevated CRP procalcitonin chest x-ray concerning for possible left-sided pneumonia 4patient to continue with Azactam and and Flagyl we will try to obtain a sputum, also check influenza and covid PCR and monitor clinical course closely. Time with Patient: Less than 30
[2023-02-02 23:57] LABS: Glucose,Whole Blood 331 mg/dL (70-110)
[2023-02-03] MEDS: AZTREONAM 2 GM in SODIUM CHLORIDE 0.9% 100 ML IVPB SCH ×3 (01:40→18:05)
[2023-02-03] MEDS: SODIUM CHLORIDE 0.9% 1,000 ML IV SCH (01:41)
[2023-02-03] MEDS: ACETAMINOPHEN TAB 325 MG TAB PO PRN ×2 (03:46→22:35)
--- NOTE | 2023-02-03 03:49 | P.PN ---
Subjective Progress Note Date: 02/02/23 This is a pleasant 72 years old female with multiple medical problems including Atrial Fibrillation, Coronary Artery Disease (CAD), Cancer, COPD, CVA/TIA, Diabetes Mellitus, GERD/Reflux, Hyperlipidemia, Hypertension, Pneumonia, Sleep Apnea/CPAP/BIPAP, Syncope she was discharged from this facility one month ago forpossible GI bleed, TIA, syncope and bronchitis. She was visiting her surgeon yesterday in the outpatient setting and she was referred to emergency room, Patient states that since last Thursday about one week ago she noticed she was not eating well and she had only one piece of pizza because of that. She started having blood per rectum, she will not stretch blood with clots filled the toilet about 3-4 times a day, also she was feeling more lethargic and weak and she slept for 48 hours as she described, complaining OF from abdominal pain mainly in the lower abdomen on the right side since Thursday about /10 like colic comes and goes. Also patient has been vomiting 2-3 times per day but there is no blood. Also patient with poor appetite. Visiting nurse noticed that her blood pressure was on the low side about 80/40 so she decided to go and see her surgeon before here for her to the emergency room. However when I saw the patient this morning she was fully awake and oriented, she looks comfortable pleasant and not in distress, she was complaining only from minimal abdominal pain. On admission she had a fever of 101, she was hypotensive and severely anemic her blood pressure 1000 as79/45, was fluctuation up to 113/45,this morning her blood pressure was 91/46, she is saturating 93% on 3 L oxygen. hemoglobin on admission was 7.7 and 6.1, compared to 9.8 last month for shawn campo. She received 1 unit of blood transfusion and her hemoglobin this morning is 7.4.INR is normal mildly elevated lactic acid came back to normal. Basic metabolic panel and liver enzymes were unremarkable this morning. urine analysis is negative and multiple viruses are undetected including covid ,influenza and RSV she has CT of the abdomen and pelvis with IV contrast showing no bowel obstru ction with mild sigmoid diverticulitis she received 2 L of normal saline and antibiotics with Flagyl and Levaquin. echocardiogram from 04/03/2022 showing ejection fraction of 55-60% 01/24/2022 Patient feels better, she feels stronger, she was walking the hallway. Her blood pressure still borderline but is improving slowly and gradually while she is on IV fluids also she is on midodrine which she thinks is helping her She still reports some blood in his stool but it's mild Hemoglobin is stable about 7.5. She remains on Levaquin and IV Flagyl and normal saline at 1:30 milliliters per hour Check labs in the morning. Currently patient is placed on liquid diets 01/25/2023 Patient is having recurrent vomiting this morning with some worsening upper abdominal pain but her abdomen still looks soft, no guarding or rebound tenderness. She still has a few spots of bleeding per rectum and epistaxis which is mild. Blood pressure actually improved, with no tachycardia, we will alert her midodrine 5 mg twice a day and we'll alert her normal saline 200 mL per hour. She has worsening swelling in her extremities as well. KUB from today is negative for acute process. She remains on Flagyl and Levaquin Surgery team on the case and plan for endoscopy tomorrow treatment Continue with Phenergan 25 mg as patient states is helping her 01/26/2023 Patient is seen and evaluated in follow-up this morning reports she underwent a bowel prep and is scheduled for colonoscopy with general surgery services today. Patient reports she had clear stool and most recent bowel movement was free of any dark stools or blood. Patient also being followed closely and maintained on IV antibiotics in the form of Flagyl and Levaquin for acute diverticulitis. Hemoglobin is currently stable today at 7.7. WBC is elevated at 14.7 and patient will continue on antibiotics. Kidney functions are within normal limits and blood sugars being monitored. Recommend continue with IV Protonix twice daily. Patient is currently afebrile with no reports of chest pain or shortness of breath. Patient is continued on 2 L and would recommend weaning FiO2 as tolerated. Will await colonoscopy report. 01/27/2023 Patient is seen today and is being followed by general surgery as well as hematology. Patient hemoglobin is 7.1 today and wbc is elevated. Hematology recommending IV iron x2 as studies were low. Recommend repeat cbc in am. Patient is currently NPO and continued on IV abx in the form of flagyl and levaquin for diverticulitis. Colonoscopy shows no acute bleed noted, possibly diverticular disease along with sigmoid diverticulitis. Continue with pain management as patient reports abdominal cramping. Patient anticoagulant remains on hold. Patient is afebrile and has been up and walking. 01/28/2023 Patient is seen in follow up with morning and being followed by surgery as well as hematology. Patient hemoglobin is up to 8 today and has received IV iron x2. Patient blast cells 3 today with hematology following closely. Recommending outpatient follow up. Patient reports some improvement in abdominal pain and diet is being slowly advanced per surgery to clear liquids. Recommend to monitor for tolerance. Chest xray was ordered and pending. Patient continued on IV antibiotics and will continue. Need to discuss further with surgery about treatment plan. Patient is afebrile and continues with an elevated WBC. Recommend follow up labs in the am. 01/29/2023 Patient is seen in follow-up with surgery following. Patient hemoglobin is stable currently and maintained off anticoagulation. Patient is a new non-oral iron supplementation and will continue. Patient continues to have elevated WBC currently above 16 and blast cells at 4 today. Patient is continued on IV antibiotics for the diverticulitis and has been maintaining and tolerating clear liquid diet and reports improvement in her abdominal pain with no reports of nausea or vomiting. Chest x-ray showing some overload and patient reports to having some abdominal bloating as well as generalized edema and will give a dose of IV Lasix. Recommend discontinuing IV hydration. Will follow-up with repeat labs. Recommend incentive spirometer and continuing to use at least 10 times every hour while awake. Encouraged increased activity as tolerated patient reports has been up and walking to the whole back. Recommend continued physical therapy. 01/30/2023 Patient is seated evaluated in follow-up continuing to lie in the bed with gener alized weakness. Patient reports she has been up but not as much. Patient is to receive a PICC line in no being started on TPN given her poor oral intake. Electrolyte abnormalities noting potassium of 3.2 and magnesium is 1.1 and will replace and recommend repeat labs. Patient also continues to report abdominal bloating and abdomen is soft and nontender on exam. Patient did receive a dose of IV Lasix yesterday with good output. General surgery starting TPN with dietitian to follow. Encouraged incentive spirometer at the bedside as patient continues to be on oxygen it does not normally wear this in the outpatient setting. Wean FiO2 as tolerated. Repeat CBC shows a hemoglobin 7.1 today and blast cells are increased up to 9 and discussed with oncology team with plans for possible bone marrow biopsy on Thursday. 01/31/2023 Patient is seen and evaluated in follow-up and hemoglobin was 6.9 today and awaiting to receive 2 units of blood with hematology following closely. General surgery following as well and has placed the patient on TPN and has received a PICC line. Electrolytes were replaced in magnesium above 2 and potassium 3.5. Patient's blood pressure on the lower side most likely multifactorial with pain medications and low blood count will add midodrine. Kidney functions worsened along with patient's sodium becoming hyponatremic although difficult to give IV fluids as patient overload easily. Will consult nephrology and appreciate input and recommendations. Patient is afebrile with no reports of nausea or vomiting noted. No reported chest pain or worsening shortness of breath at this time. Patient needs increased activity as tolerated and sitting up in the chair more often. Would recommend PT/OT therapy daily. 02/01/2023 Patient is seen in follow-up today reports she is not feeling well and per nursing staff has been having fevers overnight and continued on antibiotics for diverticulitis with surgery following. Hematology/oncology following as well and planning for possible bone marrow biopsy tomorrow. Patient is continued on TPN and has PICC line continues with indwelling Fermin catheter. Patient is reporting diarrhea and abdominal distention with pain. Infectious disease consulted and pending. Blood sugars have been elevated and was continued on sliding scale and will continue and add long-acting as well. No reports of chest pain or palpitations noted. Patient is wearing oxygen does not normally wear oxygen outpatient. Patient continues with generalized weakness and is continued on clear liquids. 02/02/2023 Patient seen and evaluated in follow-up with multiple medical consultations following. Blast cells remain elevated and hemoglobin currently stable after transfusion. Patient scheduled for bone marrow biopsy in the a.m. Patient also continues on TPN with general surgery following recommending to continue along with IV antibiotics. Infectious disease has been consulted and antibiotics being adjusted as patient had continued fevers and elevated white count. Pro- calcitonin is elevated and will continue. Patient is having elevated blood sugars and have adjusted long-acting and will continue sliding scale and m onitoring closely. Patient is requiring more oxygen demand currently at 5 L and normally does not wear any oxygen. Chest x-ray ordered pending. Review of systems: Constitutional: No reports of fatigue, reports fever, or chills, reports not feeling well Cardiovascular: No reports of chest pain or palpitations Respiratory: reports of shortness of breath GI: No reports of nausea, vomiting, or diarrhea, reports decreased abdominal pain and distention : No reports of dysuria or retention Neurovascular: reports of generalized weakness All medications have been reviewed Active Medications Acetaminophen (Acetaminophen Tab 325 Mg Tab) 650 mg PO Q6HR PRN PRN Reason: Fever and/ or Mild Pain Last Admin: 02/02/23 09:35 Dose: 650 mg Hydrocodone Bitart/Acetaminophen (Hydrocodone/Apap 5-325mg 1 Each Tab) 1 each PO Q6HR PRN PRN Reason: Pain Last Admin: 02/02/23 17:43 Dose: 1 each Albuterol Sulfate (Albuterol Hfa Inhaler) 2 puff INHALATION RT-QID PRN PRN Reason: Shortness Of Breath Last Admin: 02/02/23 17:22 Dose: 2 puff Atorvastatin Calcium (Atorvastatin 40 Mg Tab) 40 mg PO HS [facility] Last Admin: 02/02/23 20:59 Dose: 40 mg Baclofen (Baclofen 10 Mg Tab) 10 mg PO HS [facility] Last Admin: 02/02/23 20:58 Dose: 10 mg Ferrous Sulfate (Ferrous Sulfate 325 Mg Tab) 325 mg PO BID-W/MEALS [facility] Last Admin: 02/02/23 17:07 Dose: 325 mg Fluticasone Propionate (Fluticasone 50mcg/Newell Nasal 16gm) 2 spray EA NOSTRIL DAILY PRN PRN Reason: allergies Last Admin: 01/28/23 16:26 Dose: 2 spray Hydromorphone HCl (Hydromorphone 1 Mg/Ml 1 Ml Syringe) 1 mg IVP Q3H PRN PRN Reason: Moderate to Severe Pain (4-10) Last Admin: 02/02/23 23:17 Dose: 1 mg Metronidazole 500 mg/ IV (Solution) 100 mls @ 100 mls/hr IVPB Q8HR [facility]; Protocol Last Admin: 02/02/23 23:18 Dose: 100 mls/hr Fat Emulsion Intravenous 250 (ml/ IV Solution) 250 mls @ 21 mls/hr IV TuFr [facility] Last Admin: 01/30/23 15:07 Dose: 21 mls/hr Sodium Chloride 40 meq/Potassium Acetate 36 meq/Magnesium Sulfate 0.75 gm/Calcium Gluconate 1 gm/ Sodium Phosphate 9 mmol/ Amino Acids /Dextrose 1,042.5 mls @ 65 mls/hr IV .BY DURATION [facility] Stop: 02/03/23 09:00 Last Admin: 02/02/23 17:43 Dose: 65 mls/hr Parenteral Vitamin Supplement 10 ml/ Zinc/Copper/Manganese/Selenium 1 ml/ Sodium Chloride 40 meq/ Potassium Acetate 36 meq/ Magnesium Sulfate 0.75 gm / Calcium Gluconate 1 gm/Sodium Phosphate 9 mmol/ Amino Acids/Dextrose 1,053.5 mls @ 65 mls/hr IV .BY DURATION [facility] Stop: 02/03/23 09:00 Last Admin: 02/02/23 00:47 Dose: 65 mls/hr Sodium Chloride (Saline 0.9%) 1,000 mls @ 50 mls/hr IV .Q20H [facility] Last Admin: 02/03/23 01:41 Dose: 50 mls/hr Aztreonam 2 gm/ Sodium (Chloride) 100 mls @ 33.3 mls/hr IVPB Q8H [facility]; Protocol Last Admin: 02/03/23 01:40 Dose: 33.3 mls/hr Sodium Acetate 50 meq/Potassium Chloride 30 meq/Magnesium Sulfate 1 gm/Calcium Gluconate 1 gm/ Sodium Phosphate 9 mmol/ Amino Acids /Dextrose 1,055 mls @ 65 mls/hr IV .BY DURATION [facility] Parenteral Vitamin Supplement 10 ml/ Zinc/Copper/Manganese/Selenium 1 ml/ Sodium Acetate 50 meq/ Potassium Chloride 30 meq/ Magnesium Sulfate 1 gm/Calcium Gluconate 1 gm/ Sodium Phosphate 9 mmol/ Amino Acids /Dextrose 1,066 mls @ 65 mls/hr IV .BY DURATION [facility] Lactated Ringer's (Lactated Ringers) 1,000 mls @ 20 mls/hr IV .Q24H [facility] Last Admin: 02/02/23 20:13 Dose: Not Given Insulin Aspart (Insulin Aspart (Novolog) 100 Unit/Ml Vial) 0 unit SQ Q6HR [facility]; Protocol Last Admin: 02/02/23 23:18 Dose: 6 unit Insulin Detemir (Insulin Detemir (Levemir) 100 Unit/Ml Syr) 25 unit SQ BID@0700,2100 [facility] Lidocaine HCl (Lidocaine 1% (10mg/Ml) For Iv Start) 0.1 ml INTRADERMA PER PROTOCOL PRN PRN Reason: IV Start Midodrine (Midodrine 5 Mg Tab) 5 mg PO AC-TID PRN PRN Reason: Hypotension Miscellaneous Information (Potassium Replacement Protocol 1 Each Misc) 1 each MISCELLANE DAILY PRN; Protocol PRN Reason: Per Protocol Miscellaneous Information (Magnesium Replacement Protocol 1 Each Misc) 1 each MISCELLANE DAILY PRN; Protocol PRN Reason: Per Protocol Naloxone HCl (Naloxone 0.4 Mg/Ml 1 Ml Vial) 0.2 mg IV Q2M PRN PRN Reason: Opioid Reversal Ondansetron HCl (Ondansetron 4 Mg/2 Ml Vial) 4 mg IVP Q6HR PRN PRN Reason: Nausea And Vomiting Last Admin: 01/30/23 19:49 Dose: 4 mg Pantoprazole Sodium (Pantoprazole 40 Mg/10 Ml Vial) 40 mg IVP BID [facility] Last Admin: 02/02/23 20:58 Dose: 40 mg Promethazine HCl (Promethazine 25 Mg Tab) 25 mg PO Q6HR PRN PRN Reason: Nausea Last Admin: 01/27/23 13:51 Dose: 25 mg Sertraline HCl (Sertraline 50 Mg Tab) 50 mg PO DAILY [facility] Last Admin: 02/02/23 09:28 Dose: 50 mg Simethicone (Simethicone 80 Mg Chewable) 80 mg PO QID [facility] Last Admin: 02/02/23 20:58 Dose: 80 mg Physical exam: GENERAL: The patient is alert and oriented x3, Well developed, well nourished. Obese, elderly and ill-appearing HEENT: Pupils are round and equally reacting to light. EOMI. No scleral icterus. No conjunctival pallor. Normocephalic, atraumatic. No pharyngeal erythema. No thyromegaly. CARDIOVASCULAR: S1 and S2 muffled PULMONARY: Diminished breath sounds bilaterally with some scattered rhonchi ABDOMEN: Soft, obese, lower abdominal tenderness with some bloating, no ndistended, normoactive bowel sounds. No palpable organomegaly. MUSCULOSKELETAL: No joint swelling or deformity. EXTREMITIES: No cyanosis, clubbing, or pedal edema. NEUROLOGICAL: Gross neurological examination did not reveal any focal deficits. Diffusely weak SKIN: No rashes. no petechiae. Assessment: Acute anemia, mostly acute blood loss anemia, associated with abdominal pain and sigmoid diverticulitis Diverticular disease as noted on colonoscopy Sigmoid diverticulitis Acute kidney injury, multifactorial possibly secondary to hypotension as well as poor oral intake, improving Severe protein calorie malnutrition secondary to above History of chronic Anemia, iron deficiency Elevated blast cells, currently 7%, possibly secondary to previous chemotherapy or due to recent GI bleeding, bone marrow biopsy ordered for 02/03/2023 Atrial Fibrillation, on Eliquis (ON HOLD) status post Permanent Pacemaker history of anterior abdominal wall fluid collection could be related to seroma Coronary Artery Disease history, status post stent Obesity with BMI of 30.5 COPD, not in exacerbation CVA/TIA history with left foot drop Diabetes Mellitus, uncontrolled with hyperglycemia GERD/Reflux Hyperlipidemia Hypertension Sleep Apnea/CPAP/BIPAP Diabetic neuropathy bilateral legs/feet History of colon cancer with revision/colostomy since reversed and chemo/radiation History of PVD Full code Plan: Recommend continue with antibiotics in the form of Flagyl and Aztreonam with infectious disease following as patient is now having fevers and feeling worse, with continued elevated white count. Procalcitonin is elevated recommend incentive spirometer at least 10 times every hour while awake and increased activity as tolerated Recommend to continue weaning FiO2 as tolerated currently on 5 L and does not normally wear oxygen Gen. surgery following this patient is status post endoscopy with no active bleeding noted likely diverticular Blood sugars elevated and uncontrolled we'll continue sliding scale and will increase long-acting insulin recommend monitor Accu-Cheks closely Oncology following planning for bone marrow biopsy on 02/03/2023 AM Recommend follow-up labs in a.m. Patient received a PICC line for nutrition and has been on TPN with dietitian following closely Recommend continue holding eliquis at this time with concerns for possible GI bleed, recommend increased activity as tolerated Recommend to continue IV Protonix twice daily Due to multiple complex medical issues, prognosis is extremely guarded The impression and plan of care has been dictated by Mindy Saleh, Nurse Practitioner as directed. Dr. Yury MD I have performed a history and examination and MDM of this patient, discussed the same with the dictator, and agree with the dictator's assessment and plan as written ,documented as a scribe. Based on total visit time, I have performed more than 50% of the visit. Objective - Vital Signs Vital signs: Vital Signs Temp 100 F H 02/02/23 11:35 Pulse 101 H 02/02/23 11:35 Resp 22 02/02/23 11:35 BP 104/59 02/02/23 11:35 Pulse Ox 93 L 02/02/23 11:35 FiO2 21 01/25/23 08:26 Intake & Output 02/01/23 02/02/23 02/02/23 18:59 06:59 18:59 Intake Total 1020 1085 Output Total 800 300 Balance 220 1085 -300 Intake: IV 230 Invasive Line 4 230 Intake, IV Titration 1020 855 Amount Aztreonam 2 gm In Sodium 100 Chloride 0.9% 100 ml @ 33 .3 mls/hr IVPB Q8HR [facility] Rx#:[id number] Mvi, Adult No.4 with Vit 520 455 K 10 ml Trace (Conc-1Ml/ Dose) 1 ml Sodium Chloride 4Meq/ml Vial 44 meq Potassium Acetate 36 meq Magnesium Sulfate gm 0.5 gm Calcium Gluconate 1 gm In Amino Acids 5 %/ Dextrose 20 % 1,000 ml @ 65 mls/hr IV .BY DURATION [facility] Rx#:[id number] Sodium Chloride 0.9% 1, 300 300 000 ml @ 50 mls/hr IV . Q20H [facility] Rx#:[id number] metroNIDAZOLE-NS PMX 500 200 mg In Saline 1 100ml.bag @ 100 mls/hr IVPB Q8HR [facility] Rx#:[id number] Output: Urine 800 300 Other: Voiding Method Toilet Bedside Commode Bedside Commode Bedside Commode # Bowel Movements 1 - Labs CBC & Chem 7: 02/02/23 07:36 02/02/23 07:36 Labs: Abnormal Lab Results - Last 24 Hours (Table) 01/31/23 02/01/23 02/01/23 Range/Units 09:56 06:09 11:32 WBC (3.8-10.6) k/uL RBC (3.80-5.40) m/uL Hgb (11.4-16.0) gm/dL Hct (34.0-46.0) % MCH (25.0-35.0) pg MCHC (31.0-37.0) g/dL RDW (11.5-15.5) % Plt Count (150-450) k/uL Blast Cells % 8 H* % Neutrophils # (Manual) 10.30 H (1.3-7.7) k/uL Eosinophils # (Manual) 0.72 H (0-0.7) k/uL Metamyelocytes # (Man) 0.29 H (0) k/uL Myelocytes # (Manual) (0) k/uL Blast Cells # (Man) 1.15 H (0) k/uL Sodium (137-145) mmol/L Carbon Dioxide (22-30) mmol/L BUN (7-17) mg/dL Glucose (74-99) mg/dL POC Glucose (mg/dL) (70-110) mg/dL Calcium (8.4-10.2) mg/dL Magnesium (1.6-2.3) mg/dL AST (14-36) U/L C-Reactive Protein (<1.0) mg/dL Total Protein (6.3-8.2) g/dL Albumin (3.5-5.0) g/dL Procalcitonin 0.32 H (0.02-0.09) ng/mL TSH (0.465-4.680) mIU/L Urine Protein (Negative) Urine Glucose (UA) (Negative) Ur Leukocyte Esterase (Negative) Urine Mucus (None) /hpf Ur Random Sodium (40-220) mmol/L Crossmatch See Detail 02/01/23 02/01/23 02/01/23 Range/Units 16:45 16:53 16:53 WBC (3.8-10.6) k/uL RBC (3.80-5.40) m/uL Hgb (11.4-16.0) gm/dL Hct (34.0-46.0) % MCH (25.0-35.0) pg MCHC (31.0-37.0) g/dL RDW (11.5-15.5) % Plt Count (150-450) k/uL Blast Cells % % Neutrophils # (Manual) (1.3-7.7) k/uL Eosinophils # (Manual) (0-0.7) k/uL Metamyelocytes # (Man) (0) k/uL Myelocytes # (Manual) (0) k/uL Blast Cells # (Man) (0) k/uL Sodium (137-145) mmol/L Carbon Dioxide (22-30) mmol/L BUN (7-17) mg/dL Glucose (74-99) mg/dL POC Glucose (mg/dL) 370 H (70-110) mg/dL Calcium (8.4-10.2) mg/dL Magnesium (1.6-2.3) mg/dL AST (14-36) U/L C-Reactive Protein (<1.0) mg/dL Total Protein (6.3-8.2) g/dL Albumin (3.5-5.0) g/dL Procalcitonin (0.02-0.09) ng/mL TSH (0.465-4.680) mIU/L Urine Protein Trace H (Negative) Urine Glucose (UA) 3+ H (Negative) Ur Leukocyte Esterase Trace H (Negative) Urine Mucus Rare H (None) /hpf Ur Random Sodium 29 L (40-220) mmol/L Crossmatch 02/01/23 02/01/23 02/02/23 Range/Units 20:51 23:27 06:16 WBC (3.8-10.6) k/uL RBC (3.80-5.40) m/uL Hgb (11.4-16.0) gm/dL Hct (34.0-46.0) % MCH (25.0-35.0) pg MCHC (31.0-37.0) g/dL RDW (11.5-15.5) % Plt Count (150-450) k/uL Blast Cells % % Neutrophils # (Manual) (1.3-7.7) k/uL Eosinophils # (Manual) (0-0.7) k/uL Metamyelocytes # (Man) (0) k/uL Myelocytes # (Manual) (0) k/uL Blast Cells # (Man) (0) k/uL Sodium (137-145) mmol/L Carbon Dioxide (22-30) mmol/L BUN (7-17) mg/dL Glucose (74-99) mg/dL POC Glucose (mg/dL) 356 H 379 H 396 H (70-110) mg/dL Calcium (8.4-10.2) mg/dL Magnesium (1.6-2.3) mg/dL AST (14-36) U/L C-Reactive Protein (<1.0) mg/dL Total Protein (6.3-8.2) g/dL Albumin (3.5-5.0) g/dL Procalcitonin (0.02-0.09) ng/mL TSH (0.465-4.680) mIU/L Urine Protein (Negative) Urine Glucose (UA) (Negative) Ur Leukocyte Esterase (Negative) Urine Mucus (None) /hpf Ur Random Sodium (40-220) mmol/L Crossmatch 02/02/23 02/02/23 02/02/23 Range/Units 07:36 07:36 11:30 WBC 12.5 H (3.8-10.6) k/uL RBC 3.45 L (3.80-5.40) m/uL Hgb 8.5 L (11.4-16.0) gm/dL Hct 27.6 L (34.0-46.0) % MCH 24.8 L (25.0-35.0) pg MCHC 30.9 L (31.0-37.0) g/dL RDW 24.6 H (11.5-15.5) % Plt Count 144 L (150-450) k/uL Blast Cells % 7 H* % Neutrophils # (Manual) (1.3-7.7) k/uL Eosinophils # (Manual) (0-0.7) k/uL Metamyelocytes # (Man) 0.50 H (0) k/uL Myelocytes # (Manual) 0.13 H (0) k/uL Blast Cells # (Man) 0.88 H (0) k/uL Sodium 131 L (137-145) mmol/L Carbon Dioxide 21 L (22-30) mmol/L BUN 27 H (7-17) mg/dL Glucose 333 H (74-99) mg/dL POC Glucose (mg/dL) 443 H (70-110) mg/dL Calcium 7.6 L (8.4-10.2) mg/dL Magnesium 1.5 L (1.6-2.3) mg/dL AST 47 H (14-36) U/L C-Reactive Protein 18.5 H (<1.0) mg/dL Total Protein 5.3 L (6.3-8.2) g/dL Albumin 2.5 L (3.5-5.0) g/dL Procalcitonin (0.02-0.09) ng/mL TSH 6.810 H (0.465-4.680) mIU/L Urine Protein (Negative) Urine Glucose (UA) (Negative) Ur Leukocyte Esterase (Negative) Urine Mucus (None) /hpf Ur Random Sodium (40-220) mmol/L Crossmatch
[2023-02-03] MEDS: INSULIN ASPART (NovoLOG) 100 UNIT/ML VIAL SQ SCH ×5 (06:16→18:05)
[2023-02-03 06:17] LABS: Glucose,Whole Blood 383 mg/dL (70-110)
[2023-02-03] MEDS: INSULIN DETEMIR (LEVEMIR) 100 UNIT/ML SYR SQ SCH ×2 (06:17→20:38)
[2023-02-03] MEDS: FERROUS SULFATE 325 MG TAB PO SCH ×2 (06:17→16:14)
[2023-02-03] MEDS ORDERED: PROPOFOL 10 MG/ML 20 ML VIAL IV ONE (07:30)
[2023-02-03] MEDS ORDERED: LIDOCAINE 2% INJ 20 MG/ML SQ ONE ×2 (07:38→07:46)
[2023-02-03] MEDS ORDERED: IV FLUID CONTINUATION 1,000 ML IV ONE (07:42)
--- NOTE | 2023-02-03 08:05 | P.PCN ---
Date of Procedure: 02/03/23 Preoperative Diagnosis: Leukocytosis, anemia, abnormal peripheral smear Postoperative Diagnosis: Same Procedure(s) Performed: Bone marrow aspiration and biopsy Anesthesia: MAC Surgeon: Parish Hatfield Bleacher Sulfite Pulp #1: Stated None Pathology: other Condition: stable Disposition: floor Indications for Procedure: Patient admitted for diverticulitis and GI bleed. Labs showed anemia, leukocytosis, with abnormal peripheral smear including blasts. Bone marrow aspiration biopsy been done for further workup Operative Findings: Adequate samples Description of Procedure: The procedure was discussed in detail with the patient on the floor. Informed consent was obtained on the floor. She was brought to the outpatient endoscopy suite, and placed in left lateral decubitus position. The area over both posterior iliac crest was cleaned and prepped with chlorhexidine and sterile draping. IV sedation was then initiated. Local anesthesia was administered to the right posterior iliac crest with lidocaine. A Jamshidi needle was then inse rted, and bone marrow aspirate and biopsy obtained. The initial aspirate sample was somewhat slow to flow. Therefore an additional past was made with additional aspirate obtained. On withdrawal of the needle hemostasis was easily achieved. Blood loss was minimal recovery from sedation was satisfactory. She appeared to have tolerated the procedure well without any obvious, immediate complications
[2023-02-03] MEDS: PANTOPRAZOLE 40 MG/10 ML VIAL IVP SCH ×2 (09:04→20:21)
[2023-02-03] MEDS: metroNIDAZOLE-NS PMX 500 MG in SALINE 1 100ML.BAG IVPB SCH ×3 (09:05→22:58)
[2023-02-03] MEDS: HYDROcodone/APAP 5-325MG 1 EACH TAB PO PRN ×2 (09:06→16:14)
[2023-02-03] MEDS: ALBUTEROL HFA INHALER INHALATION PRN (09:08)
[2023-02-03] MEDS ORDERED: DEXTROSE 50% SYRINGE 50 ML IVP PRN (09:08)
[2023-02-03] MEDS: SIMETHICONE 80 MG CHEWABLE PO SCH ×4 (09:12→22:21)
[2023-02-03] MEDS ORDERED: FUROSEMIDE 10 MG/ML 4 ML VIAL IV STA (09:12)
[2023-02-03] MEDS: SERTRALINE 50 MG TAB PO SCH (09:12)
[2023-02-03 09:21] LABS: Anisocytosis Marked; HCT 30.4 % (34.0-46.0); HGB 9.4 gm/dL (11.4-16.0); Hypochromasia Moderate; MCH 25.1 pg (25.0-35.0); MCHC 31.1 g/dL (31.0-37.0); MCV 80.7 fL (80.0-100.0); Mean Platelet Volume 8.3; Microcytosis Moderate; Platelet Count 124 k/uL (150-450); Poikilocytosis Slight; RBC 3.77 m/uL (3.80-5.40); RDW 24.6 % (11.5-15.5); WBC 14.1 k/uL (3.8-10.6)
[2023-02-03] MEDS ORDERED: ACETAMINOPHEN IV (For NPO) 1,000 MG in EMPTY BAG 1 BAG IVPB ONE (09:30)
[2023-02-03 09:35] LABS: ALT 27 U/L (4-34); AST 37 U/L (14-36); African American GFR (CKD) >90 (>60 ml/min/1.73 sqM); Albumin 2.6 g/dL (3.5-5.0); Alkaline Phosphatase 93 U/L (38-126); Anion Gap 9 mmol/L; Blood Urea Nitrogen 29 mg/dL (7-17); Carbon Dioxide 24 mmol/L (22-30); Chloride 102 mmol/L (98-107); Glucose 258 mg/dL (74-99); Magnesium 1.8 mg/dL (1.6-2.3); Non-African American GFR(CKD) 87 (>60 ml/min/1.73 sqM); Phosphorus 3.8 mg/dL (2.5-4.5); Potassium 4.5 mmol/L (3.5-5.1); Sodium 135 mmol/L (137-145); Total Bilirubin 0.8 mg/dL (0.2-1.3); Total Protein 5.5 g/dL (6.3-8.2)
[2023-02-03 09:57] LABS: Reticulocyte % 0.7 % (0.5-2.0)
--- NOTE | 2023-02-03 10:40 | P.PN ---
Subjective Patient is seen in follow-up for hyponatremia and acute kidney injury. GFR is back to baseline. Sodium level 135. Resting in bed. Oral intake is poor. Still has a fever. On 6 L nasal cannula. Does admit to shortness of breath. Chest x-ray suggestive of fluid overload. Vital signs are stable. General: No acute distress. HEENT: Head exam is unremarkable. On nasal cannula. LUNGS: Scattered rhonchi. HEART: Rate and Rhythm are regular. ABDOMEN: Mild generalized tenderness. No distention. EXTREMITITES: No edema. Objective - Vital Signs Vital signs: Vital Signs Temp 102.6 F H 02/03/23 09:00 Pulse 100 02/03/23 09:00 Resp 38 H 02/03/23 09:00 BP 180/80 02/03/23 09:00 Pulse Ox 92 L 02/03/23 09:00 FiO2 21 01/25/23 08:26 Intake & Output 02/02/23 02/03/23 02/03/23 18:59 06:59 18:59 Intake Total 690 100 Output Total 300 Balance -300 690 100 Weight 85.729 kg Intake: IV 690 100 Invasive Line 4 690 Output: Urine 300 Other: Voiding Method Bedside Commode Bedside Commode # Voids 1 1 # Bowel Movements 1 - Labs CBC & Chem 7: 02/03/23 08:53 02/03/23 08:53 Labs: Abnormal Lab Results - Last 24 Hours (Table) 02/02/23 02/02/23 02/02/23 Range/Units 07:36 11:30 14:16 WBC (3.8-10.6) k/uL RBC (3.80-5.40) m/uL Hgb (11.4-16.0) gm/dL Hct (34.0-46.0) % RDW (11.5-15.5) % Plt Count (150-450) k/uL Sodium (137-145) mmol/L BUN (7-17) mg/dL Glucose (74-99) mg/dL POC Glucose (mg/dL) 443 H (70-110) mg/dL Calcium (8.4-10.2) mg/dL AST (14-36) U/L C-Reactive Protein 18.5 H (<1.0) mg/dL Total Protein (6.3-8.2) g/dL Albumin (3.5-5.0) g/dL Procalcitonin 1.45 H (0.02-0.09) ng/mL 02/02/23 02/02/23 02/02/23 Range/Units 16:48 20:28 23:56 WBC (3.8-10.6) k/uL RBC (3.80-5.40) m/uL Hgb (11.4-16.0) gm/dL Hct (34.0-46.0) % RDW (11.5-15.5) % Plt Count (150-450) k/uL Sodium (137-145) mmol/L BUN (7-17) mg/dL Glucose (74-99) mg/dL POC Glucose (mg/dL) 402 H 383 H 331 H (70-110) mg/dL Calcium (8.4-10.2) mg/dL AST (14-36) U/L C-Reactive Protein (<1.0) mg/dL Total Protein (6.3-8.2) g/dL Albumin (3.5-5.0) g/dL Procalcitonin (0.02-0.09) ng/mL 02/03/23 02/03/23 02/03/23 Range/Units 06:15 08:53 08:53 WBC 14.1 H (3.8-10.6) k/uL RBC 3.77 L (3.80-5.40) m/uL Hgb 9.4 L (11.4-16.0) gm/dL Hct 30.4 L (34.0-46.0) % RDW 24.6 H (11.5-15.5) % Plt Count 124 L (150-450) k/uL Sodium 135 L (137-145) mmol/L BUN 29 H (7-17) mg/dL Glucose 258 H (74-99) mg/dL POC Glucose (mg/dL) 383 H (70-110) mg/dL Calcium 8.0 L (8.4-10.2) mg/dL AST 37 H (14-36) U/L C-Reactive Protein (<1.0) mg/dL Total Protein 5.5 L (6.3-8.2) g/dL Albumin 2.6 L (3.5-5.0) g/dL Procalcitonin (0.02-0.09) ng/mL Microbiology - Last 24 Hours (Table) 02/01/23 11:32 Blood Culture - Preliminary Blood No Growth after 24 hours Assessment and Plan Plan: Assessment: 1. Acute kidney injury mostly prerenal secondary to acute blood loss anemia and hypotension. Also received IV contrast on 01/27/2023. Improved. Creatinine 0.71 today. UA benign. No hydronephrosis noted on imaging. 2. Acute GI bleed status post blood transfusion this admission. No active bleeding noted on colonoscopy. Hemoglobin 9.4 today. Hematology and surgery following. Underwent bone marrow aspiration this morning. 3. Hyponatremia. Hypervolemic. Also component of poor solute intake and component of hypertonicity from hyperglycemia. Improved. Urine sodium 29 and urine osmolality 655. TSH is slightly high at 6.8. Free T4 normal. 4. Hypomagnesemia from GI losses and poor intake. Replaced. Improved. 5. Hypokalemia from poor intake and hypomagnesemia. Replaced. Improved. Plan: Maintain TPN per surgery. Hep-Lock IV fluids. Repeat IV Lasix 40 mg today. Cortisol level not low. Blood sugar control.
[2023-02-03 11:16] LABS: Band Neutrophils % 3 %; Basophils # (M) 0.28 k/uL (0-0.2); Blast Cells # (M) 1.13 k/uL (0); Eosinophils # (M) 0.99 k/uL (0-0.7); Metamyelocytes # (M) 0.42 k/uL (0); Metamyelocytes % 3 %; Monocytes # (M) 0.71 k/uL (0-1.0); Myelocytes # (M) 0.14 k/uL (0); Myelocytes % 1 %; Neutrophils % (M) 51 %; Nucleated Red Blood Cells 0 /100 WBC (0-0); Total Cells Counted 200
[2023-02-03 11:17] LABS: RBC Fragments Present
[2023-02-03 11:44] LABS: Glucose,Whole Blood 333 mg/dL (70-110)
[2023-02-03] MEDS ORDERED: VANCOMYCIN IV PER PHARMACY 1 EACH MISC MISCELLANE PRN (11:54)
[2023-02-03] MEDS ORDERED: ALBUTEROL NEBULIZED 2.5 MG/3 ML INHALATION SCH (12:00)
[2023-02-03] MEDS ORDERED: IPRATROPIUM-ALBUTEROL 3 ML NEB INHALATION SCH (12:00)
[2023-02-03] MEDS ORDERED: IPRATROPIUM 0.5 MG/2.5 ML NEBU INHALATION SCH (12:00)
[2023-02-03] MEDS ORDERED: VANCOMYCIN 1,500 MG in SODIUM CHLORIDE 0.9% 500 ML 500 ML IVPB ONE (12:30)
[2023-02-03] MEDS: MIDODRINE 5 MG TAB PO PRN (12:30)
--- NOTE | 2023-02-03 13:34 | P.PN ---
Subjective Progress Note Date: 02/03/23 CHIEF COMPLAINT: Diverticular bleed HISTORY OF PRESENT ILLNESS: Patient status post colonoscopy revealing diverticulosis. There is no evidence of active GI bleed. It is presumed patient had bleeding from diverticular disease. Patient continues to have a productive cough more short of breath. She is having fevers as high as 102.5. White count did increase from 12-14. Hemoglobin is staying stable at 9.4. She did have a bone marrow biopsy today. Chest x-ray showing evidence of pneumonia. Her Covid screening and influenza screening were negative. She does report a decrease in abdominal pain. She is having bowel movements. No blood reported. BNP level is also elevated. Patient seen and examined with Dr. Sierra PHYSICAL EXAM: VITAL SIGNS: Reviewed. GENERAL: Well-developed in no acute distress. HEENT: No sclera icterus. Extraocular movements grossly intact. Moist buccal mucosa. Head is atraumatic, normocephalic. ABDOMEN: Soft. Nondistended. Mild tenderness left lower abdomen NEUROLOGIC: Alert and oriented. Cranial nerves II through XII grossly intact. ASSESSMENT: 1. Acute GI bleed likely due to a diverticular bleed. Improved. 2. Acute sigmoid diverticulitis. No further evidence of diverticulitis on CT 3. Abdominal pain and vomiting 4. Leukocytosis PLAN: -Advance diet to regular -Continue TPN until oral intake increased -Pneumonia management per medicine service and infectious disease -Continue antibiotics -Continue to hold Plavix and Eliquis -No surgical intervention planned Physician Molecular Biology Professor note has been reviewed by physician. Signing provider agrees with the documented findings, assessment, and plan of care. Objective - Vital Signs Vital signs: Vital Signs Temp 100.1 F H 02/03/23 11:30 Pulse 92 02/03/23 12:38 Resp 22 02/03/23 11:30 BP 90/50 02/03/23 11:30 Pulse Ox 94 L 02/03/23 11:30 FiO2 21 01/25/23 08:26 Intake & Output 02/02/23 02/03/23 02/03/23 18:59 06:59 18:59 Intake Total 690 100 Output Total 300 800 Balance -300 690 -700 Weight 85.729 kg Intake: IV 690 100 Invasive Line 4 690 Output: Urine 300 800 Other: Voiding Method Bedside Commode Bedside Commode External Catheter # Voids 1 1 # Bowel Movements 1 - Labs CBC & Chem 7: 02/03/23 08:53 02/03/23 08:53 Labs: Abnormal Lab Results - Last 24 Hours (Table) 02/02/23 02/02/23 02/02/23 Range/Units 14:16 16:48 20:28 WBC (3.8-10.6) k/uL RBC (3.80-5.40) m/uL Hgb (11.4-16.0) gm/dL Hct (34.0-46.0) % RDW (11.5-15.5) % Plt Count (150-450) k/uL Blast Cells % % Eosinophils # (Manual) (0-0.7) k/uL Basophils # (Manual) (0-0.2) k/uL Metamyelocytes # (Man) (0) k/uL Myelocytes # (Manual) (0) k/uL Blast Cells # (Man) (0) k/uL Sodium (137-145) mmol/L BUN (7-17) mg/dL Glucose (74-99) mg/dL POC Glucose (mg/dL) 402 H 383 H (70-110) mg/dL Calcium (8.4-10.2) mg/dL AST (14-36) U/L Total Protein (6.3-8.2) g/dL Albumin (3.5-5.0) g/dL Procalcitonin 1.45 H (0.02-0.09) ng/mL 02/02/23 02/03/23 02/03/23 Range/Units 23:56 06:15 08:53 WBC (3.8-10.6) k/uL RBC (3.80-5.40) m/uL Hgb (11.4-16.0) gm/dL Hct (34.0-46.0) % RDW (11.5-15.5) % Plt Count (150-450) k/uL Blast Cells % % Eosinophils # (Manual) (0-0.7) k/uL Basophils # (Manual) (0-0.2) k/uL Metamyelocytes # (Man) (0) k/uL Myelocytes # (Manual) (0) k/uL Blast Cells # (Man) (0) k/uL Sodium 135 L (137-145) mmol/L BUN 29 H (7-17) mg/dL Glucose 258 H (74-99) mg/dL POC Glucose (mg/dL) 331 H 383 H (70-110) mg/dL Calcium 8.0 L (8.4-10.2) mg/dL AST 37 H (14-36) U/L Total Protein 5.5 L (6.3-8.2) g/dL Albumin 2.6 L (3.5-5.0) g/dL Procalcitonin (0.02-0.09) ng/mL 02/03/23 02/03/23 Range/Units 08:53 11:43 WBC 14.1 H (3.8-10.6) k/uL RBC 3.77 L (3.80-5.40) m/uL Hgb 9.4 L (11.4-16.0) gm/dL Hct 30.4 L (34.0-46.0) % RDW 24.6 H (11.5-15.5) % Plt Count 124 L (150-450) k/uL Blast Cells % 8 H* % Eosinophils # (Manual) 0.99 H (0-0.7) k/uL Basophils # (Manual) 0.28 H (0-0.2) k/uL Metamyelocytes # (Man) 0.42 H (0) k/uL Myelocytes # (Manual) 0.14 H (0) k/uL Blast Cells # (Man) 1.13 H (0) k/uL Sodium (137-145) mmol/L BUN (7-17) mg/dL Glucose (74-99) mg/dL POC Glucose (mg/dL) 333 H (70-110) mg/dL Calcium (8.4-10.2) mg/dL AST (14-36) U/L Total Protein (6.3-8.2) g/dL Albumin (3.5-5.0) g/dL Procalcitonin (0.02-0.09) ng/mL Microbiology - Last 24 Hours (Table) 02/03/23 06:36 Sputum Culture - Preliminary Sputum 02/01/23 11:32 Blood Culture - Preliminary Blood No Growth after 24 hours
--- NOTE | 2023-02-03 14:54 | P.CNPUL ---
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 Creatinine Glucose POC Glucose (mg/dL) 293 H Hemoglobin A1c Plasma Lactic Acid Adán Calcium Ionized Calcium [place] Phosphorus Magnesium TIBC % Saturation Transferrin Ferritin AST Alkaline Phosphatase C-Reactive Protein Total Protein Albumin Procalcitonin TSH Ur Specific [place] Urine Protein Urine Glucose (UA) Urine Nitrite Ur Leukocyte Esterase Urine Bacteria Urine Mucus Ur Random Sodium Crossmatch See Detail 01/31/23 01/31/23 02/01/23 16:42 23:55 05:40 WBC RBC Hgb Hct MCV MCH MCHC RDW Plt Count Blast Cells % Neutrophils # (Manual) Lymphocytes # (Manual) Monocytes # (Manual) Eosinophils # (Manual) Basophils # (Manual) Metamyelocytes # (Man) Myelocytes # (Manual) Blast Cells # (Man) Nucleated RBCs Pathologist Review ESR Sodium Potassium Chloride Carbon Dioxide BUN Creatinine Glucose POC Glucose (mg/dL) 239 H 290 H 339 H Hemoglobin A1c Plasma Lactic Acid Adán Calcium Ionized Calcium [place] Phosphorus Magnesium TIBC % Saturation Transferrin Ferritin AST Alkaline Phosphatase C-Reactive Protein Total Protein Albumin Procalcitonin TSH Ur Specific [place] Urine Protein Urine Glucose (UA) Urine Nitrite Ur Leukocyte Esterase Urine Bacteria Urine Mucus Ur Random Sodium Crossmatch 02/01/23 02/01/23 02/01/23 06:09 06:09 11:32 WBC 14.4 H RBC 2.87 L Hgb 7.4 L Hct 22.9 L MCV 79.7 L MCH MCHC RDW 24.0 H Plt Count Blast Cells % 8 H* Neutrophils # (Manual) 10.30 H Lymphocytes # (Manual) Monocytes # (Manual) Eosinophils # (Manual) 0.72 H Basophils # (Manual) Metamyelocytes # (Man) 0.29 H Myelocytes # (Manual) Blast Cells # (Man) 1.15 H Nucleated RBCs Pathologist Review ESR Sodium 130 L Potassium Chloride Carbon Dioxide BUN 27 H Creatinine Glucose 287 H POC Glucose (mg/dL) Hemoglobin A1c Plasma Lactic Acid Adán Calcium 7.5 L Ionized Calcium [place] Phosphorus Magnesium TIBC % Saturation Transferrin Ferritin AST Alkaline Phosphatase C-Reactive Protein 14.2 H Total Protein Albumin Procalcitonin TSH Ur Specific [place] Urine Protein Urine Glucose (UA) Urine Nitrite Ur Leukocyte Esterase Urine Bacteria Urine Mucus Ur Random Sodium Crossmatch 02/01/23 02/01/23 02/01/23 11:32 11:57 16:45 WBC RBC Hgb Hct MCV MCH MCHC RDW Plt Count Blast Cells % Neutrophils # (Manual) Lymphocytes # (Manual) Monocytes # (Manual) Eosinophils # (Manual) Basophils # (Manual) Metamyelocytes # (Man) Myelocytes # (Manual) Blast Cells # (Man) Nucleated RBCs Pathologist Review ESR Sodium Potassium Chloride Carbon Dioxide BUN Creatinine Glucose POC Glucose (mg/dL) 395 H 370 H Hemoglobin A1c Plasma Lactic Acid Adán Calcium Ionized Calcium [place] Phosphorus Magnesium TIBC % Saturation Transferrin Ferritin AST Alkaline Phosphatase C-Reactive Protein Total Protein Albumin Procalcitonin 0.32 H TSH Ur Specific [place] Urine Protein Urine Glucose (UA) Urine Nitrite Ur Leukocyte Esterase Urine Bacteria Urine Mucus Ur Random Sodium Crossmatch 02/01/23 02/01/23 02/01/23 16:53 16:53 20:51 WBC RBC Hgb Hct MCV MCH MCHC RDW Plt Count Blast Cells % Neutrophils # (Manual) Lymphocytes # (Manual) Monocytes # (Manual) Eosinophils # (Manual) Basophils # (Manual) Metamyelocytes # (Man) Myelocytes # (Manual) Blast Cells # (Man) Nucleated RBCs Pathologist Review ESR Sodium Potassium Chloride Carbon Dioxide BUN Creatinine Glucose POC Glucose (mg/dL) 356 H Hemoglobin A1c Plasma Lactic Acid Adán Calcium Ionized Calcium [place] Phosphorus Magnesium TIBC % Saturation Transferrin Ferritin AST Alkaline Phosphatase C-Reactive Protein Total Protein Albumin Procalcitonin TSH Ur Specific [place] Urine Protein Trace H Urine Glucose (UA) 3+ H Urine Nitrite Ur Leukocyte Esterase Trace H Urine Bacteria Urine Mucus Rare H Ur Random Sodium 29 L Crossmatch 02/01/23 02/02/23 02/02/23 23:27 06:16 07:36 WBC 12.5 H RBC 3.45 L Hgb 8.5 L Hct 27.6 L MCV MCH 24.8 L MCHC 30.9 L RDW 24.6 H Plt Count 144 L Blast Cells % 7 H* Neutrophils # (Manual) Lymphocytes # (Manual) Monocytes # (Manual) Eosinophils # (Manual) Basophils # (Manual) Metamyelocytes # (Man) 0.50 H Myelocytes # (Manual) 0.13 H Blast Cells # (Man) 0.88 H Nucleated RBCs Pathologist Review ESR Sodium Potassium Chloride Carbon Dioxide BUN Creatinine Glucose POC Glucose (mg/dL) 379 H 396 H Hemoglobin A1c Plasma Lactic Acid Adán Calcium Ionized Calcium [place] Phosphorus Magnesium TIBC % Saturation Transferrin Ferritin AST Alkaline Phosphatase C-Reactive Protein Total Protein Albumin Procalcitonin TSH Ur Specific [place] Urine Protein Urine Glucose (UA) Urine Nitrite Ur Leukocyte Esterase Urine Bacteria Urine Mucus Ur Random Sodium Crossmatch 02/02/23 02/02/23 02/02/23 07:36 11:30 14:16 WBC RBC Hgb Hct MCV MCH MCHC RDW Plt Count Blast Cells % Neutrophils # (Manual) Lymphocytes # (Manual) Monocytes # (Manual) Eosinophils # (Manual) Basophils # (Manual) Metamyelocytes # (Man) Myelocytes # (Manual) Blast Cells # (Man) Nucleated RBCs Pathologist Review ESR Sodium 131 L Potassium Chloride Carbon Dioxide 21 L BUN 27 H Creatinine Glucose 333 H POC Glucose (mg/dL) 443 H Hemoglobin A1c Plasma Lactic Acid Adán Calcium 7.6 L Ionized Calcium [place] Phosphorus Magnesium 1.5 L TIBC % Saturation Transferrin Ferritin AST 47 H Alkaline Phosphatase C-Reactive Protein 18.5 H Total Protein 5.3 L Albumin 2.5 L Procalcitonin 1.45 H TSH 6.810 H Ur Specific [place] Urine Protein Urine Glucose (UA) Urine Nitrite Ur Leukocyte Esterase Urine Bacteria Urine Mucus Ur Random Sodium Crossmatch 02/02/23 02/02/23 02/02/23 16:48 20:28 23:56 WBC RBC Hgb Hct MCV MCH MCHC RDW Plt Count Blast Cells % Neutrophils # (Manual) Lymphocytes # (Manual) Monocytes # (Manual) Eosinophils # (Manual) Basophils # (Manual) Metamyelocytes # (Man) Myelocytes # (Manual) Blast Cells # (Man) Nucleated RBCs Pathologist Review ESR Sodium Potassium Chloride Carbon Dioxide BUN Creatinine Glucose POC Glucose (mg/dL) 402 H 383 H 331 H Hemoglobin A1c Plasma Lactic Acid Adán Calcium Ionized Calcium [place] Phosphorus Magnesium TIBC % Saturation Transferrin Ferritin AST Alkaline Phosphatase C-Reactive Protein Total Protein Albumin Procalcitonin TSH Ur Specific [place] Urine Protein Urine Glucose (UA) Urine Nitrite Ur Leukocyte Esterase Urine Bacteria Urine Mucus Ur Random Sodium Crossmatch 02/03/23 02/03/23 02/03/23 06:15 08:53 08:53 WBC 14.1 H RBC 3.77 L Hgb 9.4 L Hct 30.4 L MCV MCH MCHC RDW 24.6 H Plt Count 124 L Blast Cells % 8 H* Neutrophils # (Manual) Lymphocytes # (Manual) Monocytes # (Manual) Eosinophils # (Manual) 0.99 H Basophils # (Manual) 0.28 H Metamyelocytes # (Man) 0.42 H Myelocytes # (Manual) 0.14 H Blast Cells # (Man) 1.13 H Nucleated RBCs Pathologist Review ESR Sodium 135 L Potassium Chloride Carbon Dioxide BUN 29 H Creatinine Glucose 258 H POC Glucose (mg/dL) 383 H Hemoglobin A1c Plasma Lactic Acid Adán Calcium 8.0 L Ionized Calcium [place] Phosphorus Magnesium TIBC % Saturation Transferrin Ferritin AST 37 H Alkaline Phosphatase C-Reactive Protein Total Protein 5.5 L Albumin 2.6 L Procalcitonin TSH Ur Specific [place] Urine Protein Urine Glucose (UA) Urine Nitrite Ur Leukocyte Esterase Urine Bacteria Urine Mucus Ur Random Sodium Crossmatch 02/03/23 02/03/23 08:53 11:43 WBC RBC Hgb Hct MCV MCH MCHC RDW Plt Count Blast Cells % Neutrophils # (Manual) Lymphocytes # (Manual) Monocytes # (Manual) Eosinophils # (Manual) Basophils # (Manual) Metamyelocytes # (Man) Myelocytes # (Manual) Blast Cells # (Man) Nucleated RBCs Pathologist Review ESR Sodium Potassium Chloride Carbon Dioxide BUN Creatinine Glucose POC Glucose (mg/dL) 333 H Hemoglobin A1c 7.3 H Plasma Lactic Acid Adán Calcium Ionized Calcium [place] Phosphorus Magnesium TIBC % Saturation Transferrin Ferritin AST Alkaline Phosphatase C-Reactive Protein Total Protein Albumin Procalcitonin TSH Ur Specific [place] Urine Protein Urine Glucose (UA) Urine Nitrite Ur Leukocyte Esterase Urine Bacteria Urine Mucus Ur Random Sodium Crossmatch - Diagnostic Findings Chest x-ray: image reviewed Assessment and Plan Assessment: Acute hypoxemic respiratory failure, with progressive shortness of breath, and worsening saturations, likely multifactorial, in part related to fluid overload, as well as possible pneumonia, left midlung and left perihilar region. Initial admission to hospital for GI bleeding, with negative colonoscopy. Transcatheter aortic valve replacement, March 2022. History of atrial fibrillation. History of CAD. History of CVA. History of COPD, secondary to ongoing tobacco use with nicotine addiction. Diabetes mellitus. GERD. Hyperlipidemia. History of hypertension. History of obstructive sleep apnea syndrome. History of cervical cancer. Multiple other medical problems and comorbidities. Plan: Plan dated 02/03/2023. Currently, the patient's on good antibiotics as per infectious diseases. This includes Flagyl, vancomycin, and aztreonam. Thus far, all microbiologic sampling has been negative. In addition, the patient's N-terminal proBNP is elevated, and she should be given some diuretic. If not already done, a pro- calcitonin level should be ordered. We will continue to follow the patient and make recommendations along the way. Prognosis is guarded. Medications are adjusted accordingly. Labs x-rays and medications are all reviewed. Time with Patient: Greater than 30
[2023-02-03] MEDS ORDERED: IPRATROPIUM-ALBUTEROL 3 ML NEB INHALATION PRN (14:55)
[2023-02-03] MEDS: IPRATROPIUM-ALBUTEROL 3 ML NEB INHALATION SCH ×2 (16:00→21:29)
[2023-02-03] MEDS: FAT EMULSION 20% 250 ML in EMPTY BAG 1 BAG IV SCH (16:13)
[2023-02-03 16:39] LABS: Glucose,Whole Blood 310 mg/dL (70-110)
--- NOTE | 2023-02-03 19:26 | P.PN ---
Subjective Progress Note Date: 02/03/23 Principal diagnosis: Fever possible pneumonia Patient is a 72-year-old female with a past medical history negative for hypertension hyperlipidemia diabetes mellitus CVA TIA cervical cancer did have a history of atrial fibrillation on anticoagulation [facility]23 for evaluation of rectal bleeding , patient diagnosed with diverticulitis and has been treated with Levaquin and Flagyl, patient did spike fever prompting this infection consultation. On today's evaluation early 02/03/2023, the patient did spike another fever of 102F this morning patient is complaining of shortness of breath is currently on 6 L nasal cannula patient however did mention breathing slightly comfortable today continue to have a cough, patient complained of some nausea but no vomiting abdominal pain has decreased in intensity Objective - Vital Signs Vital signs: Vital Signs Temp 102.6 F H 02/03/23 09:00 Pulse 100 02/03/23 09:00 Resp 38 H 02/03/23 09:00 BP 180/80 02/03/23 09:00 Pulse Ox 92 L 02/03/23 09:00 FiO2 21 01/25/23 08:26 Intake & Output 02/02/23 02/03/23 02/03/23 18:59 06:59 18:59 Intake Total 690 100 Output Total 300 Balance -300 690 100 Weight 85.729 kg Intake: IV 690 100 Invasive Line 4 690 Output: Urine 300 Other: Voiding Method Bedside Commode Bedside Commode # Voids 1 1 # Bowel Movements 1 - Exam GENERAL DESCRIPTION: An elderly female lying in bed in no distress RESPIRATORY SYSTEM: Unlabored breathing , decreased breath sounds at bases HEART: S1 S2 regular rate and rhythm , ABDOMEN: Soft , no tenderness EXTREMITIES: No edema feet - Labs CBC & Chem 7: 02/03/23 08:53 02/03/23 08:53 Labs: Abnormal Lab Results - Last 24 Hours (Table) 02/02/23 02/02/23 02/02/23 Range/Units 07:36 11:30 14:16 WBC (3.8-10.6) k/uL RBC (3.80-5.40) m/uL Hgb (11.4-16.0) gm/dL Hct (34.0-46.0) % RDW (11.5-15.5) % Plt Count (150-450) k/uL Sodium (137-145) mmol/L BUN (7-17) mg/dL Glucose (74-99) mg/dL POC Glucose (mg/dL) 443 H (70-110) mg/dL Calcium (8.4-10.2) mg/dL AST (14-36) U/L C-Reactive Protein 18.5 H (<1.0) mg/dL Total Protein (6.3-8.2) g/dL Albumin (3.5-5.0) g/dL Procalcitonin 1.45 H (0.02-0.09) ng/mL 02/02/23 02/02/23 02/02/23 Range/Units 16:48 20:28 23:56 WBC (3.8-10.6) k/uL RBC (3.80-5.40) m/uL Hgb (11.4-16.0) gm/dL Hct (34.0-46.0) % RDW (11.5-15.5) % Plt Count (150-450) k/uL Sodium (137-145) mmol/L BUN (7-17) mg/dL Glucose (74-99) mg/dL POC Glucose (mg/dL) 402 H 383 H 331 H (70-110) mg/dL Calcium (8.4-10.2) mg/dL AST (14-36) U/L C-Reactive Protein (<1.0) mg/dL Total Protein (6.3-8.2) g/dL Albumin (3.5-5.0) g/dL Procalcitonin (0.02-0.09) ng/mL 02/03/23 02/03/23 02/03/23 Range/Units 06:15 08:53 08:53 WBC 14.1 H (3.8-10.6) k/uL RBC 3.77 L (3.80-5.40) m/uL Hgb 9.4 L (11.4-16.0) gm/dL Hct 30.4 L (34.0-46.0) % RDW 24.6 H (11.5-15.5) % Plt Count 124 L (150-450) k/uL Sodium 135 L (137-145) mmol/L BUN 29 H (7-17) mg/dL Glucose 258 H (74-99) mg/dL POC Glucose (mg/dL) 383 H (70-110) mg/dL Calcium 8.0 L (8.4-10.2) mg/dL AST 37 H (14-36) U/L C-Reactive Protein (<1.0) mg/dL Total Protein 5.5 L (6.3-8.2) g/dL Albumin 2.6 L (3.5-5.0) g/dL Procalcitonin (0.02-0.09) ng/mL Microbiology - Last 24 Hours (Table) 02/01/23 11:32 Blood Culture - Preliminary Blood No Growth after 24 hours Assessment and Plan (1) Fever Current Visit: Yes Status: Acute Code(s): R50.9 - FEVER, UNSPECIFIED SNOMED Code(s): 952199476 Plan: 1patient with sepsis in this patient who did have a fever elevated white count present to the hospital predominantly with the GI symptoms specially with abdominal pain and bleeding per rectum patient bleeding seems to have improved however still complaining of diarrhea with admission CT did shows evidence of sigmoid diverticulitis patient also have some urinary symptoms and with exposure to antibiotics concerning for possible CVA versus UTI. 2patient with multiple antibiotic allergies that would limit the number of antibiotics safe to use. 3patient did have elevated CRP procalcitonin chest x-ray concerning for possible left-sided pneumonia, sputum cultures obtained which are currently pending 4patient to continue with Azactam and Flagyl, however in view of persistent fever will add vancomycin while waiting for the cultures to finalize Time with Patient: Less than 30
[2023-02-03 20:14] LABS: Glucose,Whole Blood 305 mg/dL (70-110)
[2023-02-03] MEDS: BACLOFEN 10 MG TAB PO SCH (20:21)
[2023-02-03] MEDS: HYDROmorphone 1 MG/ML 1 ML SYRINGE IVP PRN (20:21)
[2023-02-03] MEDS: ATORVASTATIN 40 MG TAB PO SCH (20:21)
[2023-02-03] MEDS: LACTATED RINGERS 1,000 ML IV SCH (20:23)
[2023-02-03] MEDS ORDERED: FUROSEMIDE 10 MG/ML 2 ML VIAL IV ONE (21:14)
[2023-02-03] MEDS: FORMOTEROL FUMARATE 20 MCG/2 ML NEBU INHALATION SCH ×3 (21:27→21:29)
[2023-02-03] MEDS: BUDESONIDE 1 MG/2 ML NEBU INHALATION SCH (21:27)
[2023-02-04 00:48] LABS: Glucose,Whole Blood 352 mg/dL (70-110)
[2023-02-04] MEDS: VANCOMYCIN 1,500 MG in SODIUM CHLORIDE 0.9% 500 ML 500 ML IVPB SCH ×2 (00:50→12:13)
[2023-02-04] MEDS: INSULIN ASPART (NovoLOG) 100 UNIT/ML VIAL SQ SCH ×7 (00:50→17:11)
[2023-02-04] MEDS: AZTREONAM 2 GM in SODIUM CHLORIDE 0.9% 100 ML IVPB SCH ×3 (04:04→17:11)
--- NOTE | 2023-02-04 05:24 | P.PN ---
Subjective Progress Note Date: 02/03/23 This is a pleasant 72 years old female with multiple medical problems including Atrial Fibrillation, Coronary Artery Disease (CAD), Cancer, COPD, CVA/TIA, Diabetes Mellitus, GERD/Reflux, Hyperlipidemia, Hypertension, Pneumonia, Sleep Apnea/CPAP/BIPAP, Syncope she was discharged from this facility one month ago forpossible GI bleed, TIA, syncope and bronchitis. She was visiting her surgeon yesterday in the outpatient setting and she was referred to emergency room, Patient states that since last Thursday about one week ago she noticed she was not eating well and she had only one piece of pizza because of that. She started having blood per rectum, she will not stretch blood with clots filled the toilet about 3-4 times a day, also she was feeling more lethargic and weak and she slept for 48 hours as she described, complaining OF from abdominal pain mainly in the lower abdomen on the right side since Thursday about /10 like colic comes and goes. Also patient has been vomiting 2-3 times per day but there is no blood. Also patient with poor appetite. Visiting nurse noticed that her blood pressure was on the low side about 80/40 so she decided to go and see her surgeon before here for her to the emergency room. However when I saw the patient this morning she was fully awake and oriented, she looks comfortable pleasant and not in distress, she was complaining only from minimal abdominal pain. On admission she had a fever of 101, she was hypotensive and severely anemic her blood pressure 1000 as79/45, was fluctuation up to 113/45,this morning her blood pressure was 91/46, she is saturating 93% on 3 L oxygen. hemoglobin on admission was 7.7 and 6.1, compared to 9.8 last month for shawn campo. She received 1 unit of blood transfusion and her hemoglobin this morning is 7.4.INR is normal mildly elevated lactic acid came back to normal. Basic metabolic panel and liver enzymes were unremarkable this morning. urine analysis is negative and multiple viruses are undetected including covid ,influenza and RSV she has CT of the abdomen and pelvis with IV contrast showing no bowel obstru ction with mild sigmoid diverticulitis she received 2 L of normal saline and antibiotics with Flagyl and Levaquin. echocardiogram from 04/03/2022 showing ejection fraction of 55-60% 01/24/2022 Patient feels better, she feels stronger, she was walking the hallway. Her blood pressure still borderline but is improving slowly and gradually while she is on IV fluids also she is on midodrine which she thinks is helping her She still reports some blood in his stool but it's mild Hemoglobin is stable about 7.5. She remains on Levaquin and IV Flagyl and normal saline at 1:30 milliliters per hour Check labs in the morning. Currently patient is placed on liquid diets 01/25/2023 Patient is having recurrent vomiting this morning with some worsening upper abdominal pain but her abdomen still looks soft, no guarding or rebound tenderness. She still has a few spots of bleeding per rectum and epistaxis which is mild. Blood pressure actually improved, with no tachycardia, we will alert her midodrine 5 mg twice a day and we'll alert her normal saline 200 mL per hour. She has worsening swelling in her extremities as well. KUB from today is negative for acute process. She remains on Flagyl and Levaquin Surgery team on the case and plan for endoscopy tomorrow treatment Continue with Phenergan 25 mg as patient states is helping her 01/26/2023 Patient is seen and evaluated in follow-up this morning reports she underwent a bowel prep and is scheduled for colonoscopy with general surgery services today. Patient reports she had clear stool and most recent bowel movement was free of any dark stools or blood. Patient also being followed closely and maintained on IV antibiotics in the form of Flagyl and Levaquin for acute diverticulitis. Hemoglobin is currently stable today at 7.7. WBC is elevated at 14.7 and patient will continue on antibiotics. Kidney functions are within normal limits and blood sugars being monitored. Recommend continue with IV Protonix twice daily. Patient is currently afebrile with no reports of chest pain or shortness of breath. Patient is continued on 2 L and would recommend weaning FiO2 as tolerated. Will await colonoscopy report. 01/27/2023 Patient is seen today and is being followed by general surgery as well as hematology. Patient hemoglobin is 7.1 today and wbc is elevated. Hematology recommending IV iron x2 as studies were low. Recommend repeat cbc in am. Patient is currently NPO and continued on IV abx in the form of flagyl and levaquin for diverticulitis. Colonoscopy shows no acute bleed noted, possibly diverticular disease along with sigmoid diverticulitis. Continue with pain management as patient reports abdominal cramping. Patient anticoagulant remains on hold. Patient is afebrile and has been up and walking. 01/28/2023 Patient is seen in follow up with morning and being followed by surgery as well as hematology. Patient hemoglobin is up to 8 today and has received IV iron x2. Patient blast cells 3 today with hematology following closely. Recommending outpatient follow up. Patient reports some improvement in abdominal pain and diet is being slowly advanced per surgery to clear liquids. Recommend to monitor for tolerance. Chest xray was ordered and pending. Patient continued on IV antibiotics and will continue. Need to discuss further with surgery about treatment plan. Patient is afebrile and continues with an elevated WBC. Recommend follow up labs in the am. 01/29/2023 Patient is seen in follow-up with surgery following. Patient hemoglobin is stable currently and maintained off anticoagulation. Patient is a new non-oral iron supplementation and will continue. Patient continues to have elevated WBC currently above 16 and blast cells at 4 today. Patient is continued on IV antibiotics for the diverticulitis and has been maintaining and tolerating clear liquid diet and reports improvement in her abdominal pain with no reports of nausea or vomiting. Chest x-ray showing some overload and patient reports to having some abdominal bloating as well as generalized edema and will give a dose of IV Lasix. Recommend discontinuing IV hydration. Will follow-up with repeat labs. Recommend incentive spirometer and continuing to use at least 10 times every hour while awake. Encouraged increased activity as tolerated patient reports has been up and walking to the whole back. Recommend continued physical therapy. 01/30/2023 Patient is seated evaluated in follow-up continuing to lie in the bed with gener alized weakness. Patient reports she has been up but not as much. Patient is to receive a PICC line in no being started on TPN given her poor oral intake. Electrolyte abnormalities noting potassium of 3.2 and magnesium is 1.1 and will replace and recommend repeat labs. Patient also continues to report abdominal bloating and abdomen is soft and nontender on exam. Patient did receive a dose of IV Lasix yesterday with good output. General surgery starting TPN with dietitian to follow. Encouraged incentive spirometer at the bedside as patient continues to be on oxygen it does not normally wear this in the outpatient setting. Wean FiO2 as tolerated. Repeat CBC shows a hemoglobin 7.1 today and blast cells are increased up to 9 and discussed with oncology team with plans for possible bone marrow biopsy on Thursday. 01/31/2023 Patient is seen and evaluated in follow-up and hemoglobin was 6.9 today and awaiting to receive 2 units of blood with hematology following closely. General surgery following as well and has placed the patient on TPN and has received a PICC line. Electrolytes were replaced in magnesium above 2 and potassium 3.5. Patient's blood pressure on the lower side most likely multifactorial with pain medications and low blood count will add midodrine. Kidney functions worsened along with patient's sodium becoming hyponatremic although difficult to give IV fluids as patient overload easily. Will consult nephrology and appreciate input and recommendations. Patient is afebrile with no reports of nausea or vomiting noted. No reported chest pain or worsening shortness of breath at this time. Patient needs increased activity as tolerated and sitting up in the chair more often. Would recommend PT/OT therapy daily. 02/01/2023 Patient is seen in follow-up today reports she is not feeling well and per nursing staff has been having fevers overnight and continued on antibiotics for diverticulitis with surgery following. Hematology/oncology following as well and planning for possible bone marrow biopsy tomorrow. Patient is continued on TPN and has PICC line continues with indwelling Fermin catheter. Patient is reporting diarrhea and abdominal distention with pain. Infectious disease consulted and pending. Blood sugars have been elevated and was continued on sliding scale and will continue and add long-acting as well. No reports of chest pain or palpitations noted. Patient is wearing oxygen does not normally wear oxygen outpatient. Patient continues with generalized weakness and is continued on clear liquids. 02/02/2023 Patient seen and evaluated in follow-up with multiple medical consultations following. Blast cells remain elevated and hemoglobin currently stable after transfusion. Patient scheduled for bone marrow biopsy in the a.m. Patient also continues on TPN with general surgery following recommending to continue along with IV antibiotics. Infectious disease has been consulted and antibiotics being adjusted as patient had continued fevers and elevated white count. Pro- calcitonin is elevated and will continue. Patient is having elevated blood sugars and have adjusted long-acting and will continue sliding scale and m onitoring closely. Patient is requiring more oxygen demand currently at 5 L and normally does not wear any oxygen. Chest x-ray ordered pending. 02/03/2023 Patient is seen and evaluated in follow-up today with multiple medical consultations following. Overall prognosis remains guarded as patient has multiple comorbidities and medical issues ongoing. Patient currently remains on TPN for poor oral intake and recommend monitoring electrolytes closely replacing per protocol. Patient hemoglobin improved with no active bleeding noted. Patient continues with abdominal pain as well as some shortness of breath and white count remains elevated patient is having fevers. Chest x-ray suggestive of some volume overload and will continue dose of Lasix. Patient underwent bone marrow biopsy with oncology today. Blood sugars remain uncontrolled and will add pre-meal insulins as well as continue long-acting and sliding scale, possibly consider insulin drip. Review of systems: Constitutional: reports of fatigue, reports fever, or chills, reports not feeling well Cardiovascular: No reports of chest pain or palpitations Respiratory: reports of shortness of breath GI: No reports of nausea, vomiting, or diarrhea, reports decreased abdominal pain and distention : No reports of dysuria or retention Neurovascular: reports of generalized weakness All medications have been reviewed Active Medications Acetaminophen (Acetaminophen Tab 325 Mg Tab) 650 mg PO Q6HR PRN PRN Reason: Fever and/ or Mild Pain Last Admin: 02/03/23 22:35 Dose: 650 mg Hydrocodone Bitart/Acetaminophen (Hydrocodone/Apap 5-325mg 1 Each Tab) 1 each PO Q6HR PRN PRN Reason: Pain Last Admin: 02/03/23 16:14 Dose: 1 each Albuterol/Ipratropium (Ipratropium-Albuterol 3 Ml Neb) 3 ml INHALATION RT-QID ALIYAH Last Admin: 02/03/23 21:29 Dose: 3 ml Albuterol/Ipratropium (Ipratropium-Albuterol 3 Ml Neb) 3 ml INHALATION RT-Q2H PRN PRN Reason: Shortness Of Breath Or Wheezing Atorvastatin Calcium (Atorvastatin 40 Mg Tab) 40 mg PO HS ALIYAH Last Admin: 02/03/23 20:21 Dose: 40 mg Baclofen (Baclofen 10 Mg Tab) 10 mg PO HS ALIYAH Last Admin: 02/03/23 20:21 Dose: 10 mg Budesonide (Budesonide 1 Mg/2 Ml Nebu) 1 mg INHALATION RT-BID ALIYAH Last Admin: 02/03/23 21:27 Dose: 1 mg Dextrose/Water (Dextrose 50% Syringe 50 Ml) 25 ml IVP PER PROTOCOL PRN; Protocol PRN Reason: Hypoglycemia Dextrose/Water (Dextrose 50% Syringe 50 Ml) 50 ml IVP PER PROTOCOL PRN; Protocol PRN Reason: Hypoglycemia Ferrous Sulfate (Ferrous Sulfate 325 Mg Tab) 325 mg PO BID-W/MEALS [facility] Last Admin: 02/03/23 16:14 Dose: 325 mg Fluticasone Propionate (Fluticasone 50mcg/[place] Nasal 16gm) 2 spray EA NOSTRIL DAILY PRN PRN Reason: allergies Last Admin: 01/28/23 16:26 Dose: 2 spray Formoterol Fumarate (Formoterol Fumarate 20 Mcg/2 Ml Nebu) 20 mcg INHALATION RT-BID [facility] Last Admin: 02/03/23 21:29 Dose: 20 mcg Hydromorphone HCl (Hydromorphone 1 Mg/Ml 1 Ml Syringe) 1 mg IVP Q3H PRN PRN Reason: Moderate to Severe Pain (4-10) Last Admin: 02/03/23 20:21 Dose: 1 mg Metronidazole 500 mg/ IV (Solution) 100 mls @ 100 mls/hr IVPB Q8HR [facility]; Protocol Last Admin: 02/03/23 22:58 Dose: 100 mls/hr Fat Emulsion Intravenous 250 (ml/ IV Solution) 250 mls @ 21 mls/hr IV TuFr [facility] Last Admin: 02/03/23 16:13 Dose: 21 mls/hr Aztreonam 2 gm/ Sodium (Chloride) 100 mls @ 33.3 mls/hr IVPB Q8H [facility]; Protocol Last Admin: 02/04/23 04:04 Dose: Not Given Sodium Acetate 50 meq/Potassium Chloride 30 meq/Magnesium Sulfate 1 gm/Calcium Gluconate 1 gm/ Sodium Phosphate 9 mmol/ Amino Acids /Dextrose 1,055 mls @ 65 mls/hr IV .BY DURATION [facility] Last Admin: 02/03/23 10:18 Dose: 65 mls/hr Parenteral Vitamin Supplement 10 ml/ Zinc/Copper/Manganese/Selenium 1 ml/ Sodium Acetate 50 meq/ Potassium Chloride 30 meq/ Magnesium Sulfate 1 gm/Calcium Gluconate 1 gm/ Sodium Phosphate 9 mmol/ Amino Acids /Dextrose 1,066 mls @ 65 mls/hr IV .BY DURATION [facility] Last Admin: 02/04/23 00:51 Dose: 65 mls/hr Lactated Ringer's (Lactated Ringers) 1,000 mls @ 20 mls/hr IV .Q24H [facility] Last Admin: 02/03/23 20:23 Dose: Not Given Vancomycin HCl 1,500 mg/ (Sodium Chloride) 500 mls @ 167 mls/hr IVPB Q12H [facility] Last Admin: 02/04/23 00:50 Dose: 167 mls/hr Insulin Aspart (Insulin Aspart (Novolog) 100 Unit/Ml Vial) 0 unit SQ Q6HR [facility]; Protocol Last Admin: 02/04/23 00:50 Dose: 10 unit Insulin Aspart (Insulin Aspart (Novolog) 100 Unit/Ml Vial) 9 unit 0.1 unit/kg (9 unit) SQ AC-TID [facility] Insulin Detemir (Insulin Detemir (Levemir) 100 Unit/Ml Syr) 25 unit SQ BID@0700,2100 [facility] Last Admin: 02/03/23 20:38 Dose: 25 unit Lidocaine HCl (Lidocaine 1% (10mg/Ml) For Iv Start) 0.1 ml INTRADERMA PER PROTOCOL PRN PRN Reason: IV Start Midodrine (Midodrine 5 Mg Tab) 5 mg PO AC-TID PRN PRN Reason: Hypotension Last Admin: 02/03/23 12:30 Dose: 5 mg Miscellaneous Information (Potassium Replacement Protocol 1 Each Misc) 1 each MISCELLANE DAILY PRN; Protocol PRN Reason: Per Protocol Miscellaneous Information (Magnesium Replacement Protocol 1 Each Misc) 1 each MISCELLANE DAILY PRN; Protocol PRN Reason: Per Protocol Naloxone HCl (Naloxone 0.4 Mg/Ml 1 Ml Vial) 0.2 mg IV Q2M PRN PRN Reason: Opioid Reversal Ondansetron HCl (Ondansetron 4 Mg/2 Ml Vial) 4 mg IVP Q6HR PRN PRN Reason: Nausea And Vomiting Last Admin: 01/30/23 19:49 Dose: 4 mg Pantoprazole Sodium (Pantoprazole 40 Mg/10 Ml Vial) 40 mg IVP BID [facility] Last Admin: 02/03/23 20:21 Dose: 40 mg Promethazine HCl (Promethazine 25 Mg Tab) 25 mg PO Q6HR PRN PRN Reason: Nausea Last Admin: 01/27/23 13:51 Dose: 25 mg Sertraline HCl (Sertraline 50 Mg Tab) 50 mg PO DAILY [facility] Last Admin: 02/03/23 09:12 Dose: 50 mg Simethicone (Simethicone 80 Mg Chewable) 80 mg PO QID [facility] Last Admin: 02/03/23 22:21 Dose: 80 mg Physical exam: GENERAL: The patient is alert and oriented x3, Well developed, well nourished. Obese, elderly and ill-appearing HEENT: Pupils are round and equally reacting to light. EOMI. No scleral icterus. No conjunctival pallor. Normocephalic, atraumatic. No pharyngeal erythema. No thyromegaly. CARDIOVASCULAR: S1 and S2 muffled PULMONARY: Diminished breath sounds bilaterally with some scattered rhonchi and crackles noted ABDOMEN: Soft, obese, lower abdominal tenderness with some bloating, nondis tended, normoactive bowel sounds. No palpable organomegaly. MUSCULOSKELETAL: No joint swelling or deformity. EXTREMITIES: No cyanosis, clubbing, or pedal edema. NEUROLOGICAL: Gross neurological examination did not reveal any focal deficits. Diffusely weak SKIN: No rashes. no petechiae. Assessment: Acute anemia, mostly acute blood loss anemia, associated with abdominal pain and sigmoid diverticulitis Diverticular disease as noted on colonoscopy Sigmoid diverticulitis Acute kidney injury, multifactorial possibly secondary to hypotension as well as poor oral intake, improving Severe protein calorie malnutrition secondary to above History of chronic Anemia, iron deficiency Elevated blast cells, currently 7%, possibly secondary to previous chemotherapy or due to recent GI bleeding, bone marrow biopsy on 02/03/2023 Atrial Fibrillation, on Eliquis (ON HOLD) status post Permanent Pacemaker history of anterior abdominal wall fluid collection could be related to seroma Coronary Artery Disease history, status post stent Obesity with BMI of 30.5 COPD, not in exacerbation CVA/TIA history with left foot drop Diabetes Mellitus, uncontrolled with hyperglycemia GERD/Reflux Hyperlipidemia Hypertension Sleep Apnea/CPAP/BIPAP Diabetic neuropathy bilateral legs/feet History of colon cancer with revision/colostomy since reversed and chemo/radiation History of PVD Full code Plan: Recommend continue with antibiotics in the form of Flagyl and Aztreonam with infectious disease following as patient is now having fevers and feeling worse, with continued elevated white count. Procalcitonin is elevated. Blood cultures thus far remain negative and sputum culture was sent and pending recommend incentive spirometer at least 10 times every hour while awake and increased activity as tolerated Recommend to continue weaning FiO2 as tolerated currently on 5 L and does not normally wear oxygen Gen. surgery following this patient is status post endoscopy with no active bleeding noted likely diverticular recommending to continue TPN Blood sugars elevated and uncontrolled we'll continue sliding scale and will increase long-acting insulin as well as additional insulin 3 times a day recommend monitor Accu-Cheks closely and will consider insulin drip Oncology following patient underwent bone marrow biopsy on 02/03/2023 Recommend follow-up labs in a.m. Patient received a PICC line for nutrition and has been on TPN with dietitian following closely Recommend continue holding eliquis at this time with concerns for possible GI bleed, recommend increased activity as tolerated Due to multiple complex medical issues, prognosis is extremely guarded The impression and plan of care has been dictated by Mindy Saleh, Nurse Practitioner as directed. Dr. Yury MD I have performed a history and examination and MDM of this patient, discussed the same with the dictator, and agree with the dictator's assessment and plan as written ,documented as a scribe. Based on total visit time, I have performed more than 50% of the visit. Objective - Vital Signs Vital signs: Vital Signs Temp 98.4 F 02/04/23 04:00 Pulse 118 H 02/04/23 04:00 Resp 29 H 02/04/23 04:00 BP 117/67 02/04/23 04:00 Pulse Ox 95 02/04/23 04:00 FiO2 21 01/25/23 08:26 Intake & Output 02/03/23 02/03/23 02/04/23 06:59 18:59 06:59 Intake Total 690 100 Output Total 1000 400 Balance 690 -900 -400 Intake: IV 690 100 Invasive Line 4 690 Output: Urine 1000 400 Other: Voiding Method Bedside Commode External Catheter External Catheter # Voids 1 # Bowel Movements 1 1 - Labs CBC & Chem 7: 02/03/23 08:53 02/03/23 08:53 Labs: Abnormal Lab Results - Last 24 Hours (Table) 02/03/23 02/03/23 02/03/23 Range/Units 06:15 08:53 08:53 WBC 14.1 H (3.8-10.6) k/uL RBC 3.77 L (3.80-5.40) m/uL Hgb 9.4 L (11.4-16.0) gm/dL Hct 30.4 L (34.0-46.0) % RDW 24.6 H (11.5-15.5) % Plt Count 124 L (150-450) k/uL Blast Cells % 8 H* % Eosinophils # (Manual) 0.99 H (0-0.7) k/uL Basophils # (Manual) 0.28 H (0-0.2) k/uL Metamyelocytes # (Man) 0.42 H (0) k/uL Myelocytes # (Manual) 0.14 H (0) k/uL Blast Cells # (Man) 1.13 H (0) k/uL Sodium 135 L (137-145) mmol/L BUN 29 H (7-17) mg/dL Glucose 258 H (74-99) mg/dL POC Glucose (mg/dL) 383 H (70-110) mg/dL Hemoglobin A1c (0.0-6.0) % Calcium 8.0 L (8.4-10.2) mg/dL AST 37 H (14-36) U/L Total Protein 5.5 L (6.3-8.2) g/dL Albumin 2.6 L (3.5-5.0) g/dL 02/03/23 02/03/23 02/03/23 Range/Units 08:53 11:43 16:38 WBC (3.8-10.6) k/uL RBC (3.80-5.40) m/uL Hgb (11.4-16.0) gm/dL Hct (34.0-46.0) % RDW (11.5-15.5) % Plt Count (150-450) k/uL Blast Cells % % Eosinophils # (Manual) (0-0.7) k/uL Basophils # (Manual) (0-0.2) k/uL Metamyelocytes # (Man) (0) k/uL Myelocytes # (Manual) (0) k/uL Blast Cells # (Man) (0) k/uL Sodium (137-145) mmol/L BUN (7-17) mg/dL Glucose (74-99) mg/dL POC Glucose (mg/dL) 333 H 310 H (70-110) mg/dL Hemoglobin A1c 7.3 H (0.0-6.0) % Calcium (8.4-10.2) mg/dL AST (14-36) U/L Total Protein (6.3-8.2) g/dL Albumin (3.5-5.0) g/dL 02/03/23 02/04/23 Range/Units 20:12 00:45 WBC (3.8-10.6) k/uL RBC (3.80-5.40) m/uL Hgb (11.4-16.0) gm/dL Hct (34.0-46.0) % RDW (11.5-15.5) % Plt Count (150-450) k/uL Blast Cells % % Eosinophils # (Manual) (0-0.7) k/uL Basophils # (Manual) (0-0.2) k/uL Metamyelocytes # (Man) (0) k/uL Myelocytes # (Manual) (0) k/uL Blast Cells # (Man) (0) k/uL Sodium (137-145) mmol/L BUN (7-17) mg/dL Glucose (74-99) mg/dL POC Glucose (mg/dL) 305 H 352 H (70-110) mg/dL Hemoglobin A1c (0.0-6.0) % Calcium (8.4-10.2) mg/dL AST (14-36) U/L Total Protein (6.3-8.2) g/dL Albumin (3.5-5.0) g/dL Microbiology - Last 24 Hours (Table) 02/01/23 11:32 Blood Culture - Preliminary Blood No Growth after 48 hours 02/03/23 06:36 Sputum Culture - Preliminary Sputum
[2023-02-04 06:16] LABS: Glucose,Whole Blood 347 mg/dL (70-110)
[2023-02-04] MEDS: FORMOTEROL FUMARATE 20 MCG/2 ML NEBU INHALATION SCH ×2 (06:21→20:44)
[2023-02-04] MEDS: IPRATROPIUM-ALBUTEROL 3 ML NEB INHALATION SCH ×4 (06:21→20:44)
[2023-02-04] MEDS: BUDESONIDE 1 MG/2 ML NEBU INHALATION SCH ×2 (06:21→20:44)
[2023-02-04] MEDS: FERROUS SULFATE 325 MG TAB PO SCH ×2 (06:24→17:10)
[2023-02-04] MEDS: HYDROcodone/APAP 5-325MG 1 EACH TAB PO PRN ×2 (06:24→18:15)
[2023-02-04] MEDS: INSULIN DETEMIR (LEVEMIR) 100 UNIT/ML SYR SQ SCH ×2 (06:24→21:15)
--- NOTE | 2023-02-04 07:00 | XR ---
EXAMINATION TYPE: XR chest 1V portable DATE OF EXAM: 02/04/2023 COMPARISON: 02/02/2023 HISTORY: Short of breath. Hypotension. TECHNIQUE: Single view FINDINGS: Heart is borderline enlarged. There is moderate pulmonary bilateral lower lobe airspace inf iltrates in interstitial edema. There is blunting of the costophrenic angles. There are chest leads. There is a left subclavian catheter with tip in the superior vena cava. Bony thorax is intact. IMPRESSION: There is pulmonary edema and pleural fluid which is the same or slightly worse than last exam and could be congestive heart failure. There is clearing of some consolidation at the left pulmo nary hilum compared to last exam.
[2023-02-04] MEDS: SIMETHICONE 80 MG CHEWABLE PO SCH ×4 (08:27→21:27)
[2023-02-04] MEDS: PANTOPRAZOLE 40 MG/10 ML VIAL IVP SCH ×2 (08:27→21:15)
[2023-02-04] MEDS: SERTRALINE 50 MG TAB PO SCH (08:27)
[2023-02-04] MEDS: metroNIDAZOLE-NS PMX 500 MG in SALINE 1 100ML.BAG IVPB SCH ×2 (08:28→17:09)
[2023-02-04] MEDS ORDERED: FUROSEMIDE 10 MG/ML 4 ML VIAL IV SCH (09:00)
[2023-02-04 09:52] LABS: Anisocytosis Marked; HCT 24.4 % (34.0-46.0); Hypochromasia Slight; MCH 25.2 pg (25.0-35.0); MCHC 31.6 g/dL (31.0-37.0); MCV 79.7 fL (80.0-100.0); Mean Platelet Volume 8.4; Microcytosis Moderate; Poikilocytosis Slight; RBC 3.06 m/uL (3.80-5.40); WBC 8.6 k/uL (3.8-10.6)
[2023-02-04 10:05] LABS: Calcium 7.2 mg/dL (8.4-10.2); Magnesium 1.6 mg/dL (1.6-2.3); Phosphorus 3.9 mg/dL (2.5-4.5); Total Bilirubin 0.8 mg/dL (0.2-1.3); Total Protein 4.5 g/dL (6.3-8.2)
[2023-02-04 10:14] LABS: RDW 25.2 % (11.5-15.5)
[2023-02-04 10:16] LABS: HGB 7.7 gm/dL (11.4-16.0)
--- NOTE | 2023-02-04 11:49 | P.PN ---
Subjective Progress Note Date: 02/04/23 CHIEF COMPLAINT: Diverticular bleed HISTORY OF PRESENT ILLNESS: Patient status post colonoscopy revealing diverticulosis. There is no evidence of active GI bleed. It is presumed patient had bleeding from diverticular disease. Patient continues to have a cough. She has been requiring high flow oxygen and was transitioned to BiPAP. She's followed by pulmonary service. She had evidence of pneumonia and fluid overload. She's on antibiotics and Lasix. Abdominal pain is controlled. She still continues to have some mild left lower quadrant pain. She was able to eat oatmeal this morning. Denies any nausea vomiting. She had dark BM. She is on Iron. No bright red blood reported. She did have a temp of 100.8 last night. She is tachycardic. WBC is down from 14-8.6 hemoglobin 9.4 down to 7.7 platelet a 99 sodium 135 potassium is 4.0 creatinine 0.80 bone marrow Biopsy pending Patient seen and examined with Dr. Sierra PHYSICAL EXAM: VITAL SIGNS: Reviewed. GENERAL: Well-developed in no acute distress. HEENT: No sclera icterus. Extraocular movements grossly intact. Moist buccal m ucosa. Head is atraumatic, normocephalic. ABDOMEN: Soft. Nondistended. Mild tenderness left lower abdomen NEUROLOGIC: Alert and oriented. Cranial nerves II through XII grossly intact. ASSESSMENT: 1. Acute GI bleed likely due to a diverticular bleed. Improved. 2. Acute sigmoid diverticulitis. No further evidence of diverticulitis on CT 3. Abdominal pain and vomiting 4. Leukocytosis 5. Pneumonia and fluid overload PLAN: -Continue regular diet -Possible weaning of TPN once oral intake increases -Continue to hold Plavix and Eliquis -No surgical intervention planned Physician Rehabilitation Inspector note has been reviewed by physician. Signing provider agrees with the documented findings, assessment, and plan of care. Objective - Vital Signs Vital signs: Vital Signs Temp 98.1 F 02/04/23 08:00 Pulse 120 H 02/04/23 08:00 Resp 26 H 02/04/23 08:00 BP 117/66 02/04/23 08:00 Pulse Ox 98 02/04/23 08:00 FiO2 80 02/04/23 06:43 Intake & Output 02/03/23 02/04/23 02/04/23 18:59 06:59 18:59 Intake Total 100 Output Total 1000 400 200 Balance -900 -400 -200 Intake: IV 100 Output: Urine 1000 400 200 Other: Voiding Method External Catheter External Catheter # Bowel Movements 1 - Labs CBC & Chem 7: 02/04/23 08:50 02/04/23 08:50 Labs: Abnormal Lab Results - Last 24 Hours (Table) 02/03/23 02/03/23 02/03/23 Range/Units 08:53 11:43 16:38 RBC (3.80-5.40) m/uL Hgb (11.4-16.0) gm/dL Hct (34.0-46.0) % MCV (80.0-100.0) fL RDW (11.5-15.5) % Plt Count (150-450) k/uL Sodium (137-145) mmol/L Carbon Dioxide (22-30) mmol/L BUN (7-17) mg/dL Glucose (74-99) mg/dL POC Glucose (mg/dL) 333 H 310 H (70-110) mg/dL Hemoglobin A1c 7.3 H (0.0-6.0) % Calcium (8.4-10.2) mg/dL Total Protein (6.3-8.2) g/dL Albumin (3.5-5.0) g/dL 02/03/23 02/04/23 02/04/23 Range/Units 20:12 00:45 06:15 RBC (3.80-5.40) m/uL Hgb (11.4-16.0) gm/dL Hct (34.0-46.0) % MCV (80.0-100.0) fL RDW (11.5-15.5) % Plt Count (150-450) k/uL Sodium (137-145) mmol/L Carbon Dioxide (22-30) mmol/L BUN (7-17) mg/dL Glucose (74-99) mg/dL POC Glucose (mg/dL) 305 H 352 H 347 H (70-110) mg/dL Hemoglobin A1c (0.0-6.0) % Calcium (8.4-10.2) mg/dL Total Protein (6.3-8.2) g/dL Albumin (3.5-5.0) g/dL 02/04/23 02/04/23 Range/Units 08:50 08:50 RBC 3.06 L (3.80-5.40) m/uL Hgb 7.7 L D (11.4-16.0) gm/dL Hct 24.4 L (34.0-46.0) % MCV 79.7 L (80.0-100.0) fL RDW 25.2 H (11.5-15.5) % Plt Count 99 L (150-450) k/uL Sodium 135 L (137-145) mmol/L Carbon Dioxide 21 L (22-30) mmol/L BUN 34 H (7-17) mg/dL Glucose 320 H (74-99) mg/dL POC Glucose (mg/dL) (70-110) mg/dL Hemoglobin A1c (0.0-6.0) % Calcium 7.2 L (8.4-10.2) mg/dL Total Protein 4.5 L (6.3-8.2) g/dL Albumin 2.0 L (3.5-5.0) g/dL Microbiology - Last 24 Hours (Table) 02/03/23 06:36 Gram Stain - Preliminary Sputum Sputum Culture - Preliminary 02/01/23 11:32 Blood Culture - Preliminary Blood No Growth after 48 hours
[2023-02-04 11:58] LABS: Glucose,Whole Blood 404 mg/dL (70-110)
--- NOTE | 2023-02-04 12:25 | P.PN ---
Subjective Progress Note Date: 02/04/23 Principal diagnosis: anemia/elevated blast cells Upon visit today patient is sitting up at bedside. She reports that she is having worsening of SOB. She was placed on BiPAP this morning. Pt is in moderate respiratory distress, with conversational dyspnea. Denies any episodes of bleeding. No other reported complaints Objective - Vital Signs Vital signs: Vital Signs Temp 98.1 F 02/04/23 08:00 Pulse 120 H 02/04/23 08:00 Resp 26 H 02/04/23 08:00 BP 117/66 02/04/23 08:00 Pulse Ox 98 02/04/23 08:00 FiO2 80 02/04/23 06:43 Intake & Output 02/03/23 02/04/23 02/04/23 18:59 06:59 18:59 Intake Total 100 Output Total 1000 400 200 Balance -900 -400 -200 Intake: IV 100 Output: Urine 1000 400 200 Other: Voiding Method External Catheter External Catheter # Bowel Movements 1 - Constitutional General appearance: Present: average body habitus, mild distress - EENT Eyes: Present: anicteric sclerae, EOMI ENT: Present: hearing grossly normal - Respiratory Details: moderate respiratory distress Respiratory: right: rales, left: rhonchi, bilateral: wheezing - Cardiovascular Details: tachycardia Rhythm: regular Heart sounds: normal: S1, S2 Abnormal Heart Sounds: Absent: systolic murmur, diastolic murmur, rub, S3 Gallop, S4 Gallop, click, other - Integumentary Integumentary: Present: pale - Musculoskeletal Musculoskeletal: Present: generalized weakness - Psychiatric Psychiatric: Present: A&O x's 3, appropriate affect, intact judgment & insight - Labs CBC & Chem 7: 02/04/23 08:50 02/04/23 08:50 Labs: Abnormal Lab Results - Last 24 Hours (Table) 02/03/23 02/03/23 02/03/23 Range/Units 08:53 16:38 20:12 RBC (3.80-5.40) m/uL Hgb (11.4-16.0) gm/dL Hct (34.0-46.0) % MCV (80.0-100.0) fL RDW (11.5-15.5) % Plt Count (150-450) k/uL Sodium (137-145) mmol/L Carbon Dioxide (22-30) mmol/L BUN (7-17) mg/dL Glucose (74-99) mg/dL POC Glucose (mg/dL) 310 H 305 H (70-110) mg/dL Hemoglobin A1c 7.3 H (0.0-6.0) % Calcium (8.4-10.2) mg/dL Total Protein (6.3-8.2) g/dL Albumin (3.5-5.0) g/dL 02/04/23 02/04/23 02/04/23 Range/Units 00:45 06:15 08:50 RBC (3.80-5.40) m/uL Hgb (11.4-16.0) gm/dL Hct (34.0-46.0) % MCV (80.0-100.0) fL RDW (11.5-15.5) % Plt Count (150-450) k/uL Sodium 135 L (137-145) mmol/L Carbon Dioxide 21 L (22-30) mmol/L BUN 34 H (7-17) mg/dL Glucose 320 H (74-99) mg/dL POC Glucose (mg/dL) 352 H 347 H (70-110) mg/dL Hemoglobin A1c (0.0-6.0) % Calcium 7.2 L (8.4-10.2) mg/dL Total Protein 4.5 L (6.3-8.2) g/dL Albumin 2.0 L (3.5-5.0) g/dL 02/04/23 02/04/23 Range/Units 08:50 11:56 RBC 3.06 L (3.80-5.40) m/uL Hgb 7.7 L D (11.4-16.0) gm/dL Hct 24.4 L (34.0-46.0) % MCV 79.7 L (80.0-100.0) fL RDW 25.2 H (11.5-15.5) % Plt Count 99 L (150-450) k/uL Sodium (137-145) mmol/L Carbon Dioxide (22-30) mmol/L BUN (7-17) mg/dL Glucose (74-99) mg/dL POC Glucose (mg/dL) 404 H (70-110) mg/dL Hemoglobin A1c (0.0-6.0) % Calcium (8.4-10.2) mg/dL Total Protein (6.3-8.2) g/dL Albumin (3.5-5.0) g/dL Microbiology - Last 24 Hours (Table) 02/03/23 06:36 Gram Stain - Preliminary Sputum Sputum Culture - Preliminary 02/01/23 11:32 Blood Culture - Preliminary Blood No Growth after 48 hours - Imaging and Cardiology Chest x-ray: report reviewed Assessment and Plan (1) Abnormal CBC Current Visit: Yes Status: Acute Priority: High Code(s): R79.89 - OTHER SPECIFIED ABNORMAL FINDINGS OF BLOOD CHEMISTRY SNOMED Code(s): 992454642 (2) Acute diverticulitis Current Visit: Yes Status: Acute Priority: High Code(s): K57.92 - DVTRCLI OF INTEST, PART UNSP, W/O PERF OR ABSCESS W/O BLEED SNOMED Code(s): 970224156 (3) Anemia Current Visit: Yes Status: Acute Priority: High Code(s): D64.9 - ANEMIA, UNSPECIFIED SNOMED Code(s): 321506784 (4) Rectal bleeding Current Visit: Yes Status: Acute Priority: High Code(s): K62.5 - HEMORRHAGE OF ANUS AND RECTUM SNOMED Code(s): 15747403 Plan: Anemia: -Hemogloin stable, 7.7 today. Has received 2 units PRBCs -Hx of GI bleeds. Anemia likely related to hematochezia -Iron studies obtained, iron 120, iron saturation 56%, ferritin 571. Likely elevated due to recent blood transfusions. 2 doses IV iron have been given -CBC daily. Will continue to monitor. Please transfuse for hemoglobin less than 7 or if symptomatic Elevated blast cells: -Blast cells elevated, ranging from 2-9%. -Hx of multiple regimens of chemotherapy. Elevation in blast cells likely acute due to GI bleed and hx of chemotherapy. Plan was to continue to monitor blast cell counts as patient recovers, and f/u outpatient to repeat labs in 4 weeks once patient fully recovers. However, due to elevation in blasts, bone marrow biopsy obtained yesterday, results pending -Clinic f/u appt in discharge plan GI bleed: -Hx of GI bleeds -EGD and colonoscopy on 12/17/22 showed no sign of acute GI bleed. -Surgery consulted. Repeat colonoscopy showed no acute GI bleed, but showed blood tinged stool and diverticular changes. Presumed to be diverticular bleeding. -Continue to hold eliquis/plavix/No NSAIDs Diverticulitis: -CT abd/pelvis showed mild diverticultitis. Repeat CT abd/pelvis showed no diverticulitis -Continues with Flagyl and levaquin -Managed by IM -Surgery on consult, PICC line placed for TPN nutrition
[2023-02-04 14:33] LABS: Band Neutrophils % 2 %; Basophils # (M) 0.09 k/uL (0-0.2); Blast Cells # (M) 0.52 k/uL (0); Eosinophils # (M) 0.26 k/uL (0-0.7); Lymphocytes # (M) 1.12 k/uL (1.0-4.8); Metamyelocytes # (M) 0.09 k/uL (0); Metamyelocytes % 1 %; Monocytes # (M) 0.26 k/uL (0-1.0); Neutrophils % (M) 72 %; Nucleated Red Blood Cells 0 /100 WBC (0-0); Total Cells Counted 200
[2023-02-04 14:35] LABS: RBC Fragments Present; Toxic Vacuolation Present
[2023-02-04 14:37] LABS: Platelet Count 99 k/uL (150-450)
--- NOTE | 2023-02-04 14:39 | P.PN ---
Subjective Patient is seen in follow-up for hyponatremia and acute kidney injury. GFR is back to baseline. Sodium level stable at 135. Resting in bed. On BiPAP. Oral intake is poor. Chest x-ray suggestive of fluid overload. Vital signs are stable. General: No acute distress. HEENT: Head exam is unremarkable. On nasal cannula. LUNGS: Scattered rhonchi. HEART: Rate and Rhythm are regular. ABDOMEN: Mild generalized tenderness. No distention. EXTREMITITES: No edema. Objective - Vital Signs Vital signs: Vital Signs Temp 98 F 02/04/23 12:00 Pulse 120 H 02/04/23 14:00 Resp 18 02/04/23 14:00 BP 109/59 02/04/23 12:00 Pulse Ox 97 02/04/23 12:00 FiO2 70 02/04/23 12:26 Intake & Output 02/03/23 02/04/23 02/04/23 18:59 06:59 18:59 Intake Total 100 Output Total 1000 400 200 Balance -900 -400 -200 Weight 85.729 kg Intake: IV 100 Output: Urine 1000 400 200 Other: Voiding Method External Catheter External Catheter External Catheter # Bowel Movements 1 - Labs CBC & Chem 7: 02/04/23 08:50 02/04/23 08:50 Labs: Abnormal Lab Results - Last 24 Hours (Table) 02/03/23 02/03/23 02/04/23 Range/Units 16:38 20:12 00:45 RBC (3.80-5.40) m/uL Hgb (11.4-16.0) gm/dL Hct (34.0-46.0) % MCV (80.0-100.0) fL RDW (11.5-15.5) % Plt Count (150-450) k/uL Sodium (137-145) mmol/L Carbon Dioxide (22-30) mmol/L BUN (7-17) mg/dL Glucose (74-99) mg/dL POC Glucose (mg/dL) 310 H 305 H 352 H (70-110) mg/dL Calcium (8.4-10.2) mg/dL Total Protein (6.3-8.2) g/dL Albumin (3.5-5.0) g/dL 02/04/23 02/04/23 02/04/23 Range/Units 06:15 08:50 08:50 RBC 3.06 L (3.80-5.40) m/uL Hgb 7.7 L D (11.4-16.0) gm/dL Hct 24.4 L (34.0-46.0) % MCV 79.7 L (80.0-100.0) fL RDW 25.2 H (11.5-15.5) % Plt Count 99 L (150-450) k/uL Sodium 135 L (137-145) mmol/L Carbon Dioxide 21 L (22-30) mmol/L BUN 34 H (7-17) mg/dL Glucose 320 H (74-99) mg/dL POC Glucose (mg/dL) 347 H (70-110) mg/dL Calcium 7.2 L (8.4-10.2) mg/dL Total Protein 4.5 L (6.3-8.2) g/dL Albumin 2.0 L (3.5-5.0) g/dL 02/04/23 Range/Units 11:56 RBC (3.80-5.40) m/uL Hgb (11.4-16.0) gm/dL Hct (34.0-46.0) % MCV (80.0-100.0) fL RDW (11.5-15.5) % Plt Count (150-450) k/uL Sodium (137-145) mmol/L Carbon Dioxide (22-30) mmol/L BUN (7-17) mg/dL Glucose (74-99) mg/dL POC Glucose (mg/dL) 404 H (70-110) mg/dL Calcium (8.4-10.2) mg/dL Total Protein (6.3-8.2) g/dL Albumin (3.5-5.0) g/dL Microbiology - Last 24 Hours (Table) 02/01/23 11:32 Blood Culture - Preliminary Blood No Growth after 72 hours 02/03/23 06:36 Gram Stain - Preliminary Sputum Sputum Culture - Preliminary Assessment and Plan Plan: Assessment: 1. Acute kidney injury mostly prerenal secondary to acute blood loss anemia and hypotension. Also received IV contrast on 01/27/2023. Resolved. UA benign. No hydronephrosis noted on imaging. 2. Acute GI bleed status post blood transfusion this admission. No active bleeding noted on colonoscopy. Hemoglobin 9.4 today. Hematology and surgery following. Underwent bone marrow aspiration this admission. 3. Hyponatremia. Hypervolemic. Also component of poor solute intake and component of hypertonicity from hyperglycemia. Improved. Urine sodium 29 and urine osmolality 655. TSH is slightly high at 6.8. Free T4 normal. 4. Hypomagnesemia from GI losses and poor intake. Replaced. 5. Hypokalemia from poor intake and hypomagnesemia. Replaced. Improved. 6. Volume overload. Plan: Maintain TPN per surgery. Increase Lasix to 40 mg IV twice daily. Cortisol level not low. Blood sugar control.
--- NOTE | 2023-02-04 14:47 | P.PN ---
Subjective Progress Note Date: 02/04/23 Principal diagnosis: Shortness of breath, low saturations. Pulmonary consult dated 02/03/2023. A 72-year-old female who was seen initially in the emergency department on January 22, complaining of rectal bleeding. The patient recently had an EGD and colonoscopy, prior to her admission, about 3 weeks prior. The patient was asked to come to the emergency department, by her surgeon, for her new onset rectal bleeding. The patient does have a history of atrial fibrillation for which she takes a blood thinner. She apparently denied other complaints, although today when I talked her, she states that she's had shortness of breath all along. It has gotten worse so. We will asked to see her, for a new abnormality on chest x-ray, as well as increasing oxygen requirements. On January 22, the patient have a colonoscopy, which did not reveal any active GI bleeding. A chest x-ray on January 28 showed small bilateral pleural effusions. The x-ray on February 02 showed evidence of focal airspace disease involving the left midlung. This was a new finding. Currently, the patient's on 6 L of oxygen, with a saturation of 94%. She is mildly febrile with temperature 100.1F. Heart rate 92 bpm. Respiratory rate 22, and blood pressure 90/50. White count 14.1, hemoglobin 9.4, hematocrit 30.4, and platelet count 224,000. Sodium 135, potassium 4.5, chlorides 102, CO2 24, BUN 29, and creatinine 0.71. Albumin is 2.6. N-terminal proBNP is elevated at 11,000. Blood and sputum sampling is negative. The patient is on Flagyl and vancomycin and aztreonam as per infectious diseases. Progress note dated 02/04/2023. 72-year-old female seen for the first time, yesterday in consultation. His been here in the hospital for nearly 2 weeks, and we're only consulted yesterday. Anyway, we are consulted because of increasing oxygen requirements. Last night, the patient was on BiPAP. Settings included 12/5 and 80%. She's getting TPN at 65 mL an hour, and saline at 10 mL an hour. She was given some diuretic by my nurse practitioner. She's currently on 15 L high flow oxygen. She states that she is feeling better. Currently labs include a white count of 8.6, hemoglobin 7.7, hematocrit 24.4, and platelet count of 99,000. Sodium 135, potassium 4, chlorides 105, CO2 21, anion gap 9, BUN 34, and creatinine 0.8. Albumin is 2. Chest x-ray suggests some pulmonary edema, which is slightly worse compared to the prior evaluation. There is some clearing of consolidation in the left pulmonary hilar area. The most recent N-terminal proBNP is 11,000. Objective - Vital Signs Vital signs: Vital Signs Temp 98 F 02/04/23 12:00 Pulse 120 H 02/04/23 14:00 Resp 18 02/04/23 14:00 BP 109/59 02/04/23 12:00 Pulse Ox 97 02/04/23 12:00 FiO2 70 02/04/23 12:26 Intake & Output 02/03/23 02/04/23 02/04/23 18:59 06:59 18:59 Intake Total 100 Output Total 1000 400 200 Balance -900 -400 -200 Weight 85.729 kg Intake: IV 100 Output: Urine 1000 400 200 Other: Voiding Method External Catheter External Catheter External Catheter # Bowel Movements 1 - Exam No acute distress, oriented 3. Currently on 15 oh oxygen. HEENT examination is grossly unremarkable. Neck supple. Full range of motion. No adenopathy thyromegaly or neck vein distention. Cardiovascular examination reveals regular rhythm rate. S1-S2 normal. No S3 or S4. No discernible murmur noted. Heart sounds are distant. Heart rate 99 bpm. Lungs reveal scattered bilateral rhonchi, and crackles. Breath sounds equal. No wheezes. Saturations are 97% on BiPAP. Abdomen obese, but soft. Extremities are intact. No cyanosis or clubbing. Mild edema noted. Skin is without rash or lesion. Neurologic examination is brief but nonfocal. - Labs CBC & Chem 7: 02/04/23 08:50 02/04/23 08:50 Labs: Abnormal Lab Results - Last 24 Hours (Table) 02/03/23 02/03/23 02/04/23 Range/Units 16:38 20:12 00:45 RBC (3.80-5.40) m/uL Hgb (11.4-16.0) gm/dL Hct (34.0-46.0) % MCV (80.0-100.0) fL RDW (11.5-15.5) % Plt Count (150-450) k/uL Blast Cells % % Metamyelocytes # (Man) (0) k/uL Blast Cells # (Man) (0) k/uL Sodium (137-145) mmol/L Carbon Dioxide (22-30) mmol/L BUN (7-17) mg/dL Glucose (74-99) mg/dL POC Glucose (mg/dL) 310 H 305 H 352 H (70-110) mg/dL Calcium (8.4-10.2) mg/dL Total Protein (6.3-8.2) g/dL Albumin (3.5-5.0) g/dL 02/04/23 02/04/23 02/04/23 Range/Units 06:15 08:50 08:50 RBC 3.06 L (3.80-5.40) m/uL Hgb 7.7 L D (11.4-16.0) gm/dL Hct 24.4 L (34.0-46.0) % MCV 79.7 L (80.0-100.0) fL RDW 25.2 H (11.5-15.5) % Plt Count 99 L (150-450) k/uL Blast Cells % 6 H* % Metamyelocytes # (Man) 0.09 H (0) k/uL Blast Cells # (Man) 0.52 H (0) k/uL Sodium 135 L (137-145) mmol/L Carbon Dioxide 21 L (22-30) mmol/L BUN 34 H (7-17) mg/dL Glucose 320 H (74-99) mg/dL POC Glucose (mg/dL) 347 H (70-110) mg/dL Calcium 7.2 L (8.4-10.2) mg/dL Total Protein 4.5 L (6.3-8.2) g/dL Albumin 2.0 L (3.5-5.0) g/dL 02/04/23 Range/Units 11:56 RBC (3.80-5.40) m/uL Hgb (11.4-16.0) gm/dL Hct (34.0-46.0) % MCV (80.0-100.0) fL RDW (11.5-15.5) % Plt Count (150-450) k/uL Blast Cells % % Metamyelocytes # (Man) (0) k/uL Blast Cells # (Man) (0) k/uL Sodium (137-145) mmol/L Carbon Dioxide (22-30) mmol/L BUN (7-17) mg/dL Glucose (74-99) mg/dL POC Glucose (mg/dL) 404 H (70-110) mg/dL Calcium (8.4-10.2) mg/dL Total Protein (6.3-8.2) g/dL Albumin (3.5-5.0) g/dL Microbiology - Last 24 Hours (Table) 02/01/23 11:32 Blood Culture - Preliminary Blood No Growth after 72 hours 02/03/23 06:36 Gram Stain - Preliminary Sputum Sputum Culture - Preliminary Assessment and Plan Assessment: Acute hypoxemic respiratory failure, with progressive shortness of breath, and worsening saturations, likely multifactorial, in part related to fluid overload, as well as possible pneumonia, left midlung and left perihilar region. Initial admission to hospital for GI bleeding, with negative colonoscopy. Transcatheter aortic valve replacement, March 2022. History of atrial fibrillation. History of CAD. History of CVA. History of COPD, secondary to ongoing tobacco use with nicotine addiction. Diabetes mellitus. GERD. Hyperlipidemia. History of hypertension. History of obstructive sleep apnea syndrome. History of cervical cancer. Multiple other medical problems and comorbidities. Plan: Plan dated 02/03/2023. Currently, the patient's on good antibiotics as per infectious diseases. This includes Flagyl, vancomycin, and aztreonam. Thus far, all microbiologic sampling has been negative. In addition, the patient's N-terminal proBNP is elevated, and she should be given some diuretic. If not already done, a pro- calcitonin level should be ordered. We will continue to follow the patient and make recommendations along the way. Prognosis is guarded. Medications are adjusted accordingly. Labs x-rays and medications are all reviewed. Plan dated 02/04/2023. Iinitially gave the patient some Lasix last night for worsening hypoxemia. He also ordered some BiPAP with settings of 12/5 and 80%. She appears to be feeling a bit better today. Currently on 15 L high flow oxygen. We will continue to follow the patient carefully. She should get intermittent doses of diuretic. She's currently on antibiotic for possible pneumonia. Her pro- calcitonin level was elevated. Time with Patient: Less than 30
[2023-02-04] MEDS ORDERED: INSULIN ASPART (NovoLOG) 100 UNIT/ML VIAL SQ ONE (15:25)
--- NOTE | 2023-02-04 15:48 | P.PN ---
Subjective Progress Note Date: 02/04/23 This is a pleasant 72 years old female with multiple medical problems including Atrial Fibrillation, Coronary Artery Disease (CAD), Cancer, COPD, CVA/TIA, Diabetes Mellitus, GERD/Reflux, Hyperlipidemia, Hypertension, Pneumonia, Sleep Apnea/CPAP/BIPAP, Syncope she was discharged from this facility one month ago forpossible GI bleed, TIA, syncope and bronchitis. She was visiting her surgeon yesterday in the outpatient setting and she was referred to emergency room, Patient states that since last Thursday about one week ago she noticed she was not eating well and she had only one piece of pizza because of that. She started having blood per rectum, she will not stretch blood with clots filled the toilet about 3-4 times a day, also she was feeling more lethargic and weak and she slept for 48 hours as she described, complaining OF from abdominal pain mainly in the lower abdomen on the right side since Thursday about /10 like colic comes and goes. Also patient has been vomiting 2-3 times per day but there is no blood. Also patient with poor appetite. Visiting nurse noticed that her blood pressure was on the low side about 80/40 so she decided to go and see her surgeon before here for her to the emergency room. However when I saw the patient this morning she was fully awake and oriented, she looks comfortable pleasant and not in distress, she was complaining only from minimal abdominal pain. On admission she had a fever of 101, she was hypotensive and severely anemic her blood pressure 1000 as79/45, was fluctuation up to 113/45,this morning her blood pressure was 91/46, she is saturating 93% on 3 L oxygen. hemoglobin on admission was 7.7 and 6.1, compared to 9.8 last month for shawn campo. She received 1 unit of blood transfusion and her hemoglobin this morning is 7.4.INR is normal mildly elevated lactic acid came back to normal. Basic metabolic panel and liver enzymes were unremarkable this morning. urine analysis is negative and multiple viruses are undetected including covid ,influenza and RSV she has CT of the abdomen and pelvis with IV contrast showing no bowel obstru ction with mild sigmoid diverticulitis she received 2 L of normal saline and antibiotics with Flagyl and Levaquin. echocardiogram from 04/03/2022 showing ejection fraction of 55-60% 01/24/2022 Patient feels better, she feels stronger, she was walking the hallway. Her blood pressure still borderline but is improving slowly and gradually while she is on IV fluids also she is on midodrine which she thinks is helping her She still reports some blood in his stool but it's mild Hemoglobin is stable about 7.5. She remains on Levaquin and IV Flagyl and normal saline at 1:30 milliliters per hour Check labs in the morning. Currently patient is placed on liquid diets 01/25/2023 Patient is having recurrent vomiting this morning with some worsening upper abdominal pain but her abdomen still looks soft, no guarding or rebound tenderness. She still has a few spots of bleeding per rectum and epistaxis which is mild. Blood pressure actually improved, with no tachycardia, we will alert her midodrine 5 mg twice a day and we'll alert her normal saline 200 mL per hour. She has worsening swelling in her extremities as well. KUB from today is negative for acute process. She remains on Flagyl and Levaquin Surgery team on the case and plan for endoscopy tomorrow treatment Continue with Phenergan 25 mg as patient states is helping her 01/26/2023 Patient is seen and evaluated in follow-up this morning reports she underwent a bowel prep and is scheduled for colonoscopy with general surgery services today. Patient reports she had clear stool and most recent bowel movement was free of any dark stools or blood. Patient also being followed closely and maintained on IV antibiotics in the form of Flagyl and Levaquin for acute diverticulitis. Hemoglobin is currently stable today at 7.7. WBC is elevated at 14.7 and patient will continue on antibiotics. Kidney functions are within normal limits and blood sugars being monitored. Recommend continue with IV Protonix twice daily. Patient is currently afebrile with no reports of chest pain or shortness of breath. Patient is continued on 2 L and would recommend weaning FiO2 as tolerated. Will await colonoscopy report. 01/27/2023 Patient is seen today and is being followed by general surgery as well as hematology. Patient hemoglobin is 7.1 today and wbc is elevated. Hematology recommending IV iron x2 as studies were low. Recommend repeat cbc in am. Patient is currently NPO and continued on IV abx in the form of flagyl and levaquin for diverticulitis. Colonoscopy shows no acute bleed noted, possibly diverticular disease along with sigmoid diverticulitis. Continue with pain management as patient reports abdominal cramping. Patient anticoagulant remains on hold. Patient is afebrile and has been up and walking. 01/28/2023 Patient is seen in follow up with morning and being followed by surgery as well as hematology. Patient hemoglobin is up to 8 today and has received IV iron x2. Patient blast cells 3 today with hematology following closely. Recommending outpatient follow up. Patient reports some improvement in abdominal pain and diet is being slowly advanced per surgery to clear liquids. Recommend to monitor for tolerance. Chest xray was ordered and pending. Patient continued on IV antibiotics and will continue. Need to discuss further with surgery about treatment plan. Patient is afebrile and continues with an elevated WBC. Recommend follow up labs in the am. 01/29/2023 Patient is seen in follow-up with surgery following. Patient hemoglobin is stable currently and maintained off anticoagulation. Patient is a new non-oral iron supplementation and will continue. Patient continues to have elevated WBC currently above 16 and blast cells at 4 today. Patient is continued on IV antibiotics for the diverticulitis and has been maintaining and tolerating clear liquid diet and reports improvement in her abdominal pain with no reports of nausea or vomiting. Chest x-ray showing some overload and patient reports to having some abdominal bloating as well as generalized edema and will give a dose of IV Lasix. Recommend discontinuing IV hydration. Will follow-up with repeat labs. Recommend incentive spirometer and continuing to use at least 10 times every hour while awake. Encouraged increased activity as tolerated patient reports has been up and walking to the whole back. Recommend continued physical therapy. 01/30/2023 Patient is seated evaluated in follow-up continuing to lie in the bed with gener alized weakness. Patient reports she has been up but not as much. Patient is to receive a PICC line in no being started on TPN given her poor oral intake. Electrolyte abnormalities noting potassium of 3.2 and magnesium is 1.1 and will replace and recommend repeat labs. Patient also continues to report abdominal bloating and abdomen is soft and nontender on exam. Patient did receive a dose of IV Lasix yesterday with good output. General surgery starting TPN with dietitian to follow. Encouraged incentive spirometer at the bedside as patient continues to be on oxygen it does not normally wear this in the outpatient setting. Wean FiO2 as tolerated. Repeat CBC shows a hemoglobin 7.1 today and blast cells are increased up to 9 and discussed with oncology team with plans for possible bone marrow biopsy on Thursday. 01/31/2023 Patient is seen and evaluated in follow-up and hemoglobin was 6.9 today and awaiting to receive 2 units of blood with hematology following closely. General surgery following as well and has placed the patient on TPN and has received a PICC line. Electrolytes were replaced in magnesium above 2 and potassium 3.5. Patient's blood pressure on the lower side most likely multifactorial with pain medications and low blood count will add midodrine. Kidney functions worsened along with patient's sodium becoming hyponatremic although difficult to give IV fluids as patient overload easily. Will consult nephrology and appreciate input and recommendations. Patient is afebrile with no reports of nausea or vomiting noted. No reported chest pain or worsening shortness of breath at this time. Patient needs increased activity as tolerated and sitting up in the chair more often. Would recommend PT/OT therapy daily. 02/01/2023 Patient is seen in follow-up today reports she is not feeling well and per nursing staff has been having fevers overnight and continued on antibiotics for diverticulitis with surgery following. Hematology/oncology following as well and planning for possible bone marrow biopsy tomorrow. Patient is continued on TPN and has PICC line continues with indwelling Fermin catheter. Patient is reporting diarrhea and abdominal distention with pain. Infectious disease consulted and pending. Blood sugars have been elevated and was continued on sliding scale and will continue and add long-acting as well. No reports of chest pain or palpitations noted. Patient is wearing oxygen does not normally wear oxygen outpatient. Patient continues with generalized weakness and is continued on clear liquids. 02/02/2023 Patient seen and evaluated in follow-up with multiple medical consultations following. Blast cells remain elevated and hemoglobin currently stable after transfusion. Patient scheduled for bone marrow biopsy in the a.m. Patient also continues on TPN with general surgery following recommending to continue along with IV antibiotics. Infectious disease has been consulted and antibiotics being adjusted as patient had continued fevers and elevated white count. Pro- calcitonin is elevated and will continue. Patient is having elevated blood sugars and have adjusted long-acting and will continue sliding scale and m onitoring closely. Patient is requiring more oxygen demand currently at 5 L and normally does not wear any oxygen. Chest x-ray ordered pending. 02/03/2023 Patient is seen and evaluated in follow-up today with multiple medical consultations following. Overall prognosis remains guarded as patient has multiple comorbidities and medical issues ongoing. Patient currently remains on TPN for poor oral intake and recommend monitoring electrolytes closely replacing per protocol. Patient hemoglobin improved with no active bleeding noted. Patient continues with abdominal pain as well as some shortness of breath and white count remains elevated patient is having fevers. Chest x-ray suggestive of some volume overload and will continue dose of Lasix. Patient underwent bone marrow biopsy with oncology today. Blood sugars remain uncontrolled and will add pre-meal insulins as well as continue long-acting and sliding scale, possibly consider insulin drip. 02/04/2023 Patient is seen and evaluated in follow-up this morning reports she feels somewhat improved although continues to require high flow oxygen and also using BiPAP with pulmonary following. Chest x-ray this morning is suggestive of pulmonary edema and pleural fluid which is the same or slightly worse than previous could be CHF and was given doses of Lasix with improvement. Patient being started on IV Lasix twice daily with nephrology following closely. Hemoglobin is stable at 7.7 and white count is 8.6, blast cells are 6 and oncology following and has underwent bone marrow biopsy which is pending. Kidney functions are stable in magnesium found to be 1.6 and will replace per protocol. Patient continues on TPN and continues to have multiple electrolyte abnormalities at times. Patient also extremely hyperglycemic and will attempt increasing the long-acting with increasing the pre-meal as well as continuing sliding scale and may require an insulin drip. Patient is also continued on IV antibiotics with infectious disease following closely and per medical record patient has been refusing aztreonam and unsure why. Recommend wean FiO2 as tolerated and encouraged increase activity as tolerated Review of systems: Constitutional: reports of fatigue, reports not feeling well although feels slightly improved today Cardiovascular: No reports of chest pain or palpitations Respiratory: reports of shortness of breath GI: No reports of nausea, vomiting, or diarrhea, reports decreased abdominal pain : No reports of dysuria or retention Neurovascular: reports of generalized weakness All medications have been reviewed Active Medications Acetaminophen (Acetaminophen Tab 325 Mg Tab) 650 mg PO Q6HR PRN PRN Reason: Fever and/ or Mild Pain Last Admin: 02/03/23 22:35 Dose: 650 mg Hydrocodone Bitart/Acetaminophen (Hydrocodone/Apap 5-325mg 1 Each Tab) 1 each PO Q6HR PRN PRN Reason: Pain Last Admin: 02/04/23 06:24 Dose: 1 each Albuterol/Ipratropium (Ipratropium-Albuterol 3 Ml Neb) 3 ml INHALATION RT-QID [facility] Last Admin: 02/04/23 12:21 Dose: 3 ml Albuterol/Ipratropium (Ipratropium-Albuterol 3 Ml Neb) 3 ml INHALATION RT-Q2H PRN PRN Reason: Shortness Of Breath Or Wheezing Atorvastatin Calcium (Atorvastatin 40 Mg Tab) 40 mg PO HS [facility] Last Admin: 02/03/23 20:21 Dose: 40 mg Baclofen (Baclofen 10 Mg Tab) 10 mg PO HS [facility] Last Admin: 02/03/23 20:21 Dose: 10 mg Budesonide (Budesonide 1 Mg/2 Ml Nebu) 1 mg INHALATION RT-BID [facility] Last Admin: 02/04/23 06:21 Dose: 1 mg Dextrose/Water (Dextrose 50% Syringe 50 Ml) 25 ml IVP PER PROTOCOL PRN; Protocol PRN Reason: Hypoglycemia Dextrose/Water (Dextrose 50% Syringe 50 Ml) 50 ml IVP PER PROTOCOL PRN; Pro tocol PRN Reason: Hypoglycemia Ferrous Sulfate (Ferrous Sulfate 325 Mg Tab) 325 mg PO BID-W/MEALS [facility] Last Admin: 02/04/23 06:24 Dose: 325 mg Fluticasone Propionate (Fluticasone 50mcg/[place] Nasal 16gm) 2 spray EA NOSTRIL DAILY PRN PRN Reason: allergies Last Admin: 01/28/23 16:26 Dose: 2 spray Formoterol Fumarate (Formoterol Fumarate 20 Mcg/2 Ml Nebu) 20 mcg INHALATION RT-BID [facility] Last Admin: 02/04/23 06:21 Dose: 20 mcg Furosemide (Furosemide 10 Mg/Ml 4 Ml Vial) 40 mg IV BID ALIYAH Hydromorphone HCl (Hydromorphone 1 Mg/Ml 1 Ml Syringe) 1 mg IVP Q3H PRN PRN Reason: Moderate to Severe Pain (4-10) Last Admin: 02/03/23 20:21 Dose: 1 mg Metronidazole 500 mg/ IV (Solution) 100 mls @ 100 mls/hr IVPB Q8HR ALIYAH; Protocol Last Admin: 02/04/23 08:28 Dose: 100 mls/hr Fat Emulsion Intravenous 250 (ml/ IV Solution) 250 mls @ 21 mls/hr IV TuFr [facility] Last Admin: 02/03/23 16:13 Dose: 21 mls/hr Aztreonam 2 gm/ Sodium (Chloride) 100 mls @ 33.3 mls/hr IVPB Q8H [facility]; Protocol Last Admin: 02/04/23 12:11 Dose: Not Given Sodium Acetate 50 meq/Potassium Chloride 30 meq/Magnesium Sulfate 1 gm/Calcium Gluconate 1 gm/ Sodium Phosphate 9 mmol/ Amino Acids /Dextrose 1,055 mls @ 65 mls/hr IV .BY DURATION [facility] Stop: 02/04/23 16:59 Last Admin: 02/03/23 10:18 Dose: 65 mls/hr Parenteral Vitamin Supplement 10 ml/ Zinc/Copper/Manganese/Selenium 1 ml/ Sodium Acetate 50 meq/ Potassium Chloride 30 meq/ Magnesium Sulfate 1 gm/Calcium Gluconate 1 gm/ Sodium Phosphate 9 mmol/ Amino Acids /Dextrose 1,066 mls @ 65 mls/hr IV .BY DURATION [facility] Stop: 02/04/23 16:59 Last Admin: 02/04/23 00:51 Dose: 65 mls/hr Lactated Ringer's (Lactated Ringers) 1,000 mls @ 20 mls/hr IV .Q24H [facility] Last Admin: 02/03/23 20:23 Dose: Not Given Vancomycin HCl 1,500 mg/ (Sodium Chloride) 500 mls @ 167 mls/hr IVPB Q12H [facility] Last Admin: 02/04/23 12:13 Dose: 167 mls/hr Sodium Acetate 56 meq/Potassium Chloride 34 meq/Magnesium Sulfate 1.5 gm/Calcium Gluconate 1 gm/ Sodium Phosphate 9 mmol/ Amino Acids /Dextrose 1,061 mls @ 65 mls/hr IV .BY DURATION [facility] Parenteral Vitamin Supplement 10 ml/ Zinc/Copper/Manganese/Selenium 1 ml/ Sodium Acetate 56 meq/ Potassium Chloride 34 meq/ Magnesium Sulfate 1.5 gm/Calcium Gluconate 1 gm/Sodium Phosphate 9 mmol/ Amino Acids/Dextrose 1,072 mls @ 65 mls/hr IV .BY DURATION [facility] Magnesium Sulfate/Dextrose 1 (gm/ IV Solution) 100 mls @ 100 mls/hr IVPB Q1H [facility] Stop: 02/04/23 17:14 Insulin Aspart (Insulin Aspart (Novolog) 100 Unit/Ml Vial) 0 unit SQ Q6HR [facility]; Protocol Last Admin: 02/04/23 12:13 Dose: 12 unit Insulin Aspart (Insulin Aspart (Novolog) 100 Unit/Ml Vial) 9 unit 0.1 unit/kg (9 unit) SQ AC-TID [facility] Last Admin: 02/04/23 12:13 Dose: 9 unit Insulin Detemir (Insulin Detemir (Levemir) 100 Unit/Ml Syr) 25 unit SQ BID@0700,2100 [facility] Last Admin: 02/04/23 06:24 Dose: 25 unit Lidocaine HCl (Lidocaine 1% (10mg/Ml) For Iv Start) 0.1 ml INTRADERMA PER PROTOCOL PRN PRN Reason: IV Start Midodrine (Midodrine 5 Mg Tab) 5 mg PO AC-TID PRN PRN Reason: Hypotension Last Admin: 02/03/23 12:30 Dose: 5 mg Miscellaneous Information (Potassium Replacement Protocol 1 Each Misc) 1 each MISCELLANE DAILY PRN; Protocol PRN Reason: Per Protocol Miscellaneous Information (Magnesium Replacement Protocol 1 Each Misc) 1 each MISCELLANE DAILY PRN; Protocol PRN Reason: Per Protocol Miscellaneous Information (Vancomycin Trough Due 1 Each Misc) 1 each MISCELLANE ONCE ONE Stop: 02/05/23 11:01 Naloxone HCl (Naloxone 0.4 Mg/Ml 1 Ml Vial) 0.2 mg IV Q2M PRN PRN Reason: Opioid Reversal Ondansetron HCl (Ondansetron 4 Mg/2 Ml Vial) 4 mg IVP Q6HR PRN PRN Reason: Nausea And Vomiting Last Admin: 01/30/23 19:49 Dose: 4 mg Pantoprazole Sodium (Pantoprazole 40 Mg/10 Ml Vial) 40 mg IVP BID [facility] Last Admin: 02/04/23 08:27 Dose: 40 mg Promethazine HCl (Promethazine 25 Mg Tab) 25 mg PO Q6HR PRN PRN Reason: Nausea Last Admin: 01/27/23 13:51 Dose: 25 mg Sertraline HCl (Sertraline 50 Mg Tab) 50 mg PO DAILY [facility] Last Admin: 02/04/23 08:27 Dose: 50 mg Simethicone (Simethicone 80 Mg Chewable) 80 mg PO QID [facility] Last Admin: 02/04/23 12:14 Dose: Not Given Physical exam: GENERAL: The patient is alert and oriented x3, Well developed, well nourished. Obese, elderly and ill-appearing HEENT: Pupils are round and equally reacting to light. EOMI. No scleral icterus. No conjunctival pallor. Normocephalic, atraumatic. No pharyngeal erythema. No thyromegaly. CARDIOVASCULAR: S1 and S2 muffled PULMONARY: Diminished breath sounds bilaterally with some scattered rhonchi and crackles noted ABDOMEN: Soft, obese, lower abdominal tenderness with some bloating, nondistended, normoactive bowel sounds. No palpable organomegaly. MUSCULOSKELETAL: No joint swelling or deformity. EXTREMITIES: No cyanosis, clubbing, or pedal edema. NEUROLOGICAL: Gross neurological examination did not reveal any focal deficits. Diffusely weak SKIN: No rashes. no petechiae. Assessment: Acute anemia, mostly acute blood loss anemia, associated with abdominal pain and sigmoid diverticulitis Diverticular disease as noted on colonoscopy Sigmoid diverticulitis Acute kidney injury, multifactorial possibly secondary to hypotension as well as poor oral intake, improving Severe protein calorie malnutrition secondary to above History of chronic Anemia, iron deficiency Elevated blast cells, currently 6%, possibly secondary to previous chemotherapy or due to recent GI bleeding, bone marrow biopsy on 02/03/2023 Atrial Fibrillation, on Eliquis (ON HOLD) status post Permanent Pacemaker history of anterior abdominal wall fluid collection could be related to seroma Coronary Artery Disease history, status post stent Obesity with BMI of 30.5 COPD, not in exacerbation CVA/TIA history with left foot drop Diabetes Mellitus, uncontrolled with hyperglycemia GERD/Reflux Hyperlipidemia Hypertension Sleep Apnea/CPAP/BIPAP Diabetic neuropathy bilateral legs/feet History of colon cancer with revision/colostomy since reversed and chemo/radiation History of PVD Full code Plan: Recommend continue with antibiotics in the form of Flagyl and Aztreonam with infectious disease following. Procalcitonin is elevated. Blood cultures thus far remain negative and sputum culture was sent and pending recommend incentive spirometer at least 10 times every hour while awake and increased activity as tolerated Recommend to continue weaning FiO2 as tolerated currently on 15 L high flow and also requiring BiPAP with pulmonary following Gen. surgery following this patient is status post endoscopy with no active bleeding noted likely diverticular recommending to continue TPN Blood sugars elevated and uncontrolled we'll continue sliding scale and will increase long-acting insulin as well as additional insulin 3 times a day recommend monitor Accu-Cheks closely and will consider insulin drip in the next 24 hours if no improvements Oncology following patient underwent bone marrow biopsy on 02/03/2023 Recommend follow-up labs in a.m. Patient has a PICC line for nutrition and has been on TPN with dietitian following closely Recommend continue holding eliquis at this time with concerns for possible GI bleed, recommend increased activity as tolerated Due to multiple complex medical issues, prognosis is extremely guarded The impression and plan of care has been dictated by Mindy Saleh, Nurse Practitioner as directed. Dr. Yury MD I have performed a history and examination and MDM of this patient, discussed the same with the dictator, and agree with the dictator's assessment and plan as written ,documented as a scribe. Based on total visit time, I have performed more than 50% of the visit. Objective - Vital Signs Vital signs: Vital Signs Temp 98.1 F 02/04/23 08:00 Pulse 120 H 02/04/23 08:00 Resp 26 H 02/04/23 08:00 BP 117/66 02/04/23 08:00 Pulse Ox 98 02/04/23 08:00 FiO2 80 02/04/23 06:43 Intake & Output 02/03/23 02/04/23 02/04/23 18:59 06:59 18:59 Intake Total 100 Output Total 1000 400 200 Balance -900 -400 -200 Intake: IV 100 Output: Urine 1000 400 200 Other: Voiding Method External Catheter External Catheter # Bowel Movements 1 - Labs CBC & Chem 7: 02/04/23 08:50 02/04/23 08:50 Labs: Abnormal Lab Results - Last 24 Hours (Table) 02/03/23 02/03/23 02/03/23 Range/Units 08:53 08:53 08:53 WBC 14.1 H (3.8-10.6) k/uL RBC 3.77 L (3.80-5.40) m/uL Hgb 9.4 L (11.4-16.0) gm/dL Hct 30.4 L (34.0-46.0) % RDW 24.6 H (11.5-15.5) % Plt Count 124 L (150-450) k/uL Blast Cells % 8 H* % Eosinophils # (Manual) 0.99 H (0-0.7) k/uL Basophils # (Manual) 0.28 H (0-0.2) k/uL Metamyelocytes # (Man) 0.42 H (0) k/uL Myelocytes # (Manual) 0.14 H (0) k/uL Blast Cells # (Man) 1.13 H (0) k/uL Sodium 135 L (137-145) mmol/L BUN 29 H (7-17) mg/dL Glucose 258 H (74-99) mg/dL POC Glucose (mg/dL) (70-110) mg/dL Hemoglobin A1c 7.3 H (0.0-6.0) % Calcium 8.0 L (8.4-10.2) mg/dL AST 37 H (14-36) U/L Total Protein 5.5 L (6.3-8.2) g/dL Albumin 2.6 L (3.5-5.0) g/dL 02/03/23 02/03/23 02/03/23 Range/Units 11:43 16:38 20:12 WBC (3.8-10.6) k/uL RBC (3.80-5.40) m/uL Hgb (11.4-16.0) gm/dL Hct (34.0-46.0) % RDW (11.5-15.5) % Plt Count (150-450) k/uL Blast Cells % % Eosinophils # (Manual) (0-0.7) k/uL Basophils # (Manual) (0-0.2) k/uL Metamyelocytes # (Man) (0) k/uL Myelocytes # (Manual) (0) k/uL Blast Cells # (Man) (0) k/uL Sodium (137-145) mmol/L BUN (7-17) mg/dL Glucose (74-99) mg/dL POC Glucose (mg/dL) 333 H 310 H 305 H (70-110) mg/dL Hemoglobin A1c (0.0-6.0) % Calcium (8.4-10.2) mg/dL AST (14-36) U/L Total Protein (6.3-8.2) g/dL Albumin (3.5-5.0) g/dL 02/04/23 02/04/23 Range/Units 00:45 06:15 WBC (3.8-10.6) k/uL RBC (3.80-5.40) m/uL Hgb (11.4-16.0) gm/dL Hct (34.0-46.0) % RDW (11.5-15.5) % Plt Count (150-450) k/uL Blast Cells % % Eosinophils # (Manual) (0-0.7) k/uL Basophils # (Manual) (0-0.2) k/uL Metamyelocytes # (Man) (0) k/uL Myelocytes # (Manual) (0) k/uL Blast Cells # (Man) (0) k/uL Sodium (137-145) mmol/L BUN (7-17) mg/dL Glucose (74-99) mg/dL POC Glucose (mg/dL) 352 H 347 H (70-110) mg/dL Hemoglobin A1c (0.0-6.0) % Calcium (8.4-10.2) mg/dL AST (14-36) U/L Total Protein (6.3-8.2) g/dL Albumin (3.5-5.0) g/dL Microbiology - Last 24 Hours (Table) 02/01/23 11:32 Blood Culture - Preliminary Blood No Growth after 48 hours 02/03/23 06:36 Sputum Culture - Preliminary Sputum
[2023-02-04 16:54] LABS: Glucose,Whole Blood 387 mg/dL (70-110)
[2023-02-04] MEDS: MAGNESIUM SULFATE-D5W PMX 1 GM in DEXTROSE/WATER 1 100ML.BAG IVPB SCH ×2 (17:10→21:16)
[2023-02-04] MEDS: LACTATED RINGERS 1,000 ML IV SCH (17:15)
[2023-02-04] MEDS: [UNRECOGNIZED DRUG - OTHER] IV SCH ×8 (17:42)
[2023-02-04] MEDS: POTASSIUM CHLORIDE IV SCH ×8 (17:42)
[2023-02-04] MEDS: SODIUM ACETATE IV SCH ×8 (17:42)
[2023-02-04] MEDS: MAGNESIUM SULFATE IV SCH ×8 (17:42)
[2023-02-04 20:12] LABS: Glucose,Whole Blood 358 mg/dL (70-110)
--- NOTE | 2023-02-04 21:03 | P.PN ---
Subjective Progress Note Date: 02/04/23 Principal diagnosis: Fever possible pneumonia Patient is a 72-year-old female with a past medical history negative for hypertension hyperlipidemia diabetes mellitus CVA TIA cervical cancer did have a history of atrial fibrillation on anticoagulation presenting to the [facility] on 01/22/2023 for evaluation of rectal bleeding , patient diagnosed with diverticulitis and has been treated with Levaquin and Flagyl, patient did spike fever prompting this infection consultation. On today's evaluation early 02/04/2023, the patient fever pattern improved and the patient is afebrile this morning patient is breathing more comfortably the patient is currently on 6 L nasal cannula patient denies any worsening cough or sputum production, patient complained of some nausea but no vomiting abdominal pain has decreased in intensity Objective - Vital Signs Vital signs: Vital Signs Temp 98 F 02/04/23 12:00 Pulse 99 02/04/23 12:36 Resp 18 02/04/23 12:00 BP 109/59 02/04/23 12:00 Pulse Ox 97 02/04/23 12:00 FiO2 70 02/04/23 12:26 Intake & Output 02/03/23 02/04/23 02/04/23 18:59 06:59 18:59 Intake Total 100 Output Total 1000 400 200 Balance -900 -400 -200 Weight 85.729 kg Intake: IV 100 Output: Urine 1000 400 200 Other: Voiding Method External Catheter External Catheter # Bowel Movements 1 - Exam GENERAL DESCRIPTION: An elderly female lying in bed in no distress RESPIRATORY SYSTEM: Unlabored breathing , decreased breath sounds at bases HEART: S1 S2 regular rate and rhythm , ABDOMEN: Soft , no tenderness EXTREMITIES: No edema feet - Labs CBC & Chem 7: 02/04/23 08:50 02/04/23 08:50 Labs: Abnormal Lab Results - Last 24 Hours (Table) 02/03/23 02/03/23 02/03/23 Range/Units 08:53 16:38 20:12 RBC (3.80-5.40) m/uL Hgb (11.4-16.0) gm/dL Hct (34.0-46.0) % MCV (80.0-100.0) fL RDW (11.5-15.5) % Plt Count (150-450) k/uL Sodium (137-145) mmol/L Carbon Dioxide (22-30) mmol/L BUN (7-17) mg/dL Glucose (74-99) mg/dL POC Glucose (mg/dL) 310 H 305 H (70-110) mg/dL Hemoglobin A1c 7.3 H (0.0-6.0) % Calcium (8.4-10.2) mg/dL Total Protein (6.3-8.2) g/dL Albumin (3.5-5.0) g/dL 02/04/23 02/04/23 02/04/23 Range/Units 00:45 06:15 08:50 RBC (3.80-5.40) m/uL Hgb (11.4-16.0) gm/dL Hct (34.0-46.0) % MCV (80.0-100.0) fL RDW (11.5-15.5) % Plt Count (150-450) k/uL Sodium 135 L (137-145) mmol/L Carbon Dioxide 21 L (22-30) mmol/L BUN 34 H (7-17) mg/dL Glucose 320 H (74-99) mg/dL POC Glucose (mg/dL) 352 H 347 H (70-110) mg/dL Hemoglobin A1c (0.0-6.0) % Calcium 7.2 L (8.4-10.2) mg/dL Total Protein 4.5 L (6.3-8.2) g/dL Albumin 2.0 L (3.5-5.0) g/dL 02/04/23 02/04/23 Range/Units 08:50 11:56 RBC 3.06 L (3.80-5.40) m/uL Hgb 7.7 L D (11.4-16.0) gm/dL Hct 24.4 L (34.0-46.0) % MCV 79.7 L (80.0-100.0) fL RDW 25.2 H (11.5-15.5) % Plt Count 99 L (150-450) k/uL Sodium (137-145) mmol/L Carbon Dioxide (22-30) mmol/L BUN (7-17) mg/dL Glucose (74-99) mg/dL POC Glucose (mg/dL) 404 H (70-110) mg/dL Hemoglobin A1c (0.0-6.0) % Calcium (8.4-10.2) mg/dL Total Protein (6.3-8.2) g/dL Albumin (3.5-5.0) g/dL Microbiology - Last 24 Hours (Table) 02/03/23 06:36 Gram Stain - Preliminary Sputum Sputum Culture - Preliminary 02/01/23 11:32 Blood Culture - Preliminary Blood No Growth after 48 hours Assessment and Plan (1) Fever Current Visit: Yes Status: Acute Code(s): R50.9 - FEVER, UNSPECIFIED SNOMED Code(s): 687644748 Plan: 1patient with sepsis in this patient who did have a fever elevated white count present to the hospital predominantly with the GI symptoms specially with abdominal pain and bleeding per rectum patient bleeding seems to have improved however still complaining of diarrhea with admission CT did shows evidence of sigmoid diverticulitis patient also have some urinary symptoms and with exposure to antibiotics concerning for possible CVA versus UTI. 2patient with multiple antibiotic allergies that would limit the number of antibiotics safe to use. 3patient did have elevated CRP procalcitonin chest x-ray concerning for possible left-sided pneumonia, sputum cultures obtained which are currently pending 4patient fever has responded with addition of vancomycin which will be contin ued along with Azactam and Flagyl while waiting for the sputum culture finalized Time with Patient: Less than 30
[2023-02-04] MEDS: ATORVASTATIN 40 MG TAB PO SCH (21:14)
[2023-02-04] MEDS: BACLOFEN 10 MG TAB PO SCH (21:14)
[2023-02-04] MEDS: FUROSEMIDE 10 MG/ML 4 ML VIAL IV SCH (21:14)
[2023-02-04] MEDS: ACETAMINOPHEN TAB 325 MG TAB PO PRN (21:18)
[2023-02-04 23:59] LABS: Glucose,Whole Blood 387 mg/dL (70-110)
[2023-02-05] MEDS: INSULIN ASPART (NovoLOG) 100 UNIT/ML VIAL SQ SCH ×8 (00:47→18:10)
[2023-02-05] MEDS: VANCOMYCIN 1,500 MG in SODIUM CHLORIDE 0.9% 500 ML 500 ML IVPB SCH ×2 (00:47→14:55)
[2023-02-05] MEDS: metroNIDAZOLE-NS PMX 500 MG in SALINE 1 100ML.BAG IVPB SCH ×3 (00:48→17:06)
[2023-02-05] MEDS: AZTREONAM 2 GM in SODIUM CHLORIDE 0.9% 100 ML IVPB SCH ×3 (02:26→18:08)
[2023-02-05] MEDS: ACETAMINOPHEN TAB 325 MG TAB PO PRN (03:44)
[2023-02-05 06:18] LABS: Glucose,Whole Blood 316 mg/dL (70-110)
[2023-02-05] MEDS: FORMOTEROL FUMARATE 20 MCG/2 ML NEBU INHALATION SCH ×2 (09:08→20:58)
[2023-02-05] MEDS: BUDESONIDE 1 MG/2 ML NEBU INHALATION SCH ×2 (09:09→20:58)
[2023-02-05] MEDS: IPRATROPIUM-ALBUTEROL 3 ML NEB INHALATION SCH ×4 (09:09→20:59)
[2023-02-05] MEDS: FUROSEMIDE 10 MG/ML 4 ML VIAL IV SCH ×2 (09:46→20:26)
[2023-02-05] MEDS: INSULIN DETEMIR (LEVEMIR) 100 UNIT/ML SYR SQ SCH ×2 (09:46→21:03)
[2023-02-05] MEDS: PANTOPRAZOLE 40 MG/10 ML VIAL IVP SCH ×2 (09:46→20:27)
[2023-02-05] MEDS: SERTRALINE 50 MG TAB PO SCH (09:47)
[2023-02-05] MEDS: SIMETHICONE 80 MG CHEWABLE PO SCH ×5 (09:47→21:03)
[2023-02-05] MEDS: FERROUS SULFATE 325 MG TAB PO SCH ×2 (09:47→14:57)
[2023-02-05] MEDS: METOPROLOL TARTRATE 25 MG TAB PO SCH ×2 (09:48→20:27)
[2023-02-05] MEDS ORDERED: VANCOMYCIN TROUGH DUE 1 EACH MISC MISCELLANE ONE (11:00)
[2023-02-05 11:38] LABS: Glucose,Whole Blood 264 mg/dL (70-110)
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
[2023-02-05 12:08] LABS: Anisocytosis Marked; HCT 21.4 % (34.0-46.0); Hypochromasia Moderate; MCHC 31.1 g/dL (31.0-37.0); MCV 80.5 fL (80.0-100.0); Mean Platelet Volume 8.7; Microcytosis Moderate; Poikilocytosis Slight; RBC 2.66 m/uL (3.80-5.40); WBC 7.7 k/uL (3.8-10.6)
[2023-02-05 12:16] LABS: RDW 25.3 % (11.5-15.5)
[2023-02-05 12:17] LABS: Platelet Count 94 k/uL (150-450)
[2023-02-05 12:18] LABS: HGB 6.7 gm/dL (11.4-16.0)
[2023-02-05 12:23] LABS: ALT 17 U/L (4-34); AST 26 U/L (14-36); African American GFR (CKD) >90 (>60 ml/min/1.73 sqM); Albumin 1.8 g/dL (3.5-5.0); Alkaline Phosphatase 120 U/L (38-126); Anion Gap 8 mmol/L; Blood Urea Nitrogen 42 mg/dL (7-17); Carbon Dioxide 22 mmol/L (22-30); Chloride 104 mmol/L (98-107); Glucose 240 mg/dL (74-99); Non-African American GFR(CKD) 81 (>60 ml/min/1.73 sqM); Phosphorus 4.1 mg/dL (2.5-4.5); Potassium 3.9 mmol/L (3.5-5.1); Sodium 134 mmol/L (137-145); Total Bilirubin 0.8 mg/dL (0.2-1.3); Total Protein 4.3 g/dL (6.3-8.2)
[2023-02-05] MEDS: [UNRECOGNIZED DRUG - OTHER] IV SCH ×8 (12:57)
[2023-02-05] MEDS: POTASSIUM CHLORIDE IV SCH ×8 (12:57)
[2023-02-05] MEDS: SODIUM ACETATE IV SCH ×8 (12:57)
[2023-02-05] MEDS: MAGNESIUM SULFATE IV SCH ×8 (12:57)
--- NOTE | 2023-02-05 13:09 | P.PN ---
Subjective Patient is seen in follow-up for hyponatremia and acute kidney injury. GFR is back to baseline. Sodium level stable at 134. Resting in bed. On high flow nasal cannula. on IV Lasix. Hemoglobin 6.7 today. Vital signs are stable. General: No acute distress. HEENT: Head exam is unremarkable. On nasal cannula. LUNGS: Scattered rhonchi. HEART: Rate and Rhythm are regular. ABDOMEN:Nontender. EXTREMITITES: No edema. Objective - Vital Signs Vital signs: Vital Signs Temp 97.8 F 02/05/23 08:00 Pulse 98 02/05/23 12:53 Resp 18 02/05/23 12:00 BP 95/57 02/05/23 12:00 Pulse Ox 94 L 02/05/23 12:00 FiO2 70 02/05/23 05:00 Intake & Output 02/04/23 02/05/23 02/05/23 18:59 06:59 18:59 Intake Total 590 1179 Output Total 200 475 650 Balance -200 115 529 Weight 85.729 kg Intake: Intake, IV Titration 590 1061 Amount Mvi, Adult No.4 with Vit 490 K 10 ml Trace (Conc-1Ml/ Dose) 1 ml Sodium Acetate 50 meq Potassium Chloride 30 meq Magnesium Sulfate gm 1 gm Calcium Gluconate 1 gm Sodium Phosphate 9 mmol In Amino Acids 5 %/Dextrose 20 % 1,000 ml @ 65 mls/hr IV . BY DURATION ALIYAH Rx#: [id number] Sodium Acetate 56 meq 1061 Potassium Chloride 34 meq Magnesium Sulfate gm 1.5 gm Calcium Gluconate 1 gm Sodium Phosphate 9 mmol In Amino Acids 5 %/ Dextrose 20 % 1,000 ml @ 65 mls/hr IV .BY DURATION ALIYAH Rx#:[id number] metroNIDAZOLE-NS PMX 500 100 mg In Saline 1 100ml.bag @ 100 mls/hr IVPB Q8HR ALIY[facility] Rx#:[id number] Oral 118 Output: Urine 200 475 650 Other: Voiding Method External Catheter Diaper External Catheter # Voids 1 # Bowel Movements 1 - Labs CBC & Chem 7: 02/05/23 11:07 02/05/23 11:07 Labs: Abnormal Lab Results - Last 24 Hours (Table) 02/04/23 02/04/23 02/04/23 Range/Units 08:50 16:52 20:11 RBC (3.80-5.40) m/uL Hgb (11.4-16.0) gm/dL Hct (34.0-46.0) % RDW (11.5-15.5) % Plt Count 99 L (150-450) k/uL Blast Cells % 6 H* % Metamyelocytes # (Man) 0.09 H (0) k/uL Blast Cells # (Man) 0.52 H (0) k/uL Sodium (137-145) mmol/L BUN (7-17) mg/dL Glucose (74-99) mg/dL POC Glucose (mg/dL) 387 H 358 H (70-110) mg/dL Calcium (8.4-10.2) mg/dL Total Protein (6.3-8.2) g/dL Albumin (3.5-5.0) g/dL 02/04/23 02/05/23 02/05/23 Range/Units 23:57 06:17 11:07 RBC (3.80-5.40) m/uL Hgb (11.4-16.0) gm/dL Hct (34.0-46.0) % RDW (11.5-15.5) % Plt Count (150-450) k/uL Blast Cells % % Metamyelocytes # (Man) (0) k/uL Blast Cells # (Man) (0) k/uL Sodium 134 L (137-145) mmol/L BUN 42 H (7-17) mg/dL Glucose 240 H (74-99) mg/dL POC Glucose (mg/dL) 387 H 316 H (70-110) mg/dL Calcium 7.0 L (8.4-10.2) mg/dL Total Protein 4.3 L (6.3-8.2) g/dL Albumin 1.8 L (3.5-5.0) g/dL 02/05/23 02/05/23 Range/Units 11:07 11:36 RBC 2.66 L (3.80-5.40) m/uL Hgb 6.7 L* (11.4-16.0) gm/dL Hct 21.4 L (34.0-46.0) % RDW 25.3 H (11.5-15.5) % Plt Count 94 L (150-450) k/uL Blast Cells % % Metamyelocytes # (Man) (0) k/uL Blast Cells # (Man) (0) k/uL Sodium (137-145) mmol/L BUN (7-17) mg/dL Glucose (74-99) mg/dL POC Glucose (mg/dL) 264 H (70-110) mg/dL Calcium (8.4-10.2) mg/dL Total Protein (6.3-8.2) g/dL Albumin (3.5-5.0) g/dL Microbiology - Last 24 Hours (Table) 02/03/23 06:36 Gram Stain - Final Sputum Sputum Culture - Final 02/01/23 11:32 Blood Culture - Preliminary Blood No Growth after 72 hours Assessment and Plan Plan: Assessment: 1. Acute kidney injury mostly prerenal secondary to acute blood loss anemia and hypotension. Also received IV contrast on 01/27/2023. Resolved. UA benign. No hydronephrosis noted on imaging. 2. Acute GI bleed status post blood transfusion this admission. No active bleeding noted on colonoscopy. Hemoglobin 6.7 today. Hematology and surgery following. Underwent bone marrow aspiration this admission. Status post blood transfusions this admission. 3. Hyponatremia. Hypervolemic. Also component of poor solute intake and component of hypertonicity from hyperglycemia. Improved. Urine sodium 29 and urine osmolality 655. TSH is slightly high at 6.8. Free T4 normal. 4. Hypomagnesemia from GI losses and poor intake. Replaced. 5. Hypokalemia from poor intake and hypomagnesemia. Replaced. Improved. 6. Volume overload. Improving with diuresis. Plan: Maintain TPN per surgery. Maintain IV Lasix. Cortisol level not low. Blood sugar control.
[2023-02-05 13:10] LABS: Band Neutrophils % 3 %; Basophils # (M) 0.08 k/uL (0-0.2); Blast Cells # (M) 0.39 k/uL (0); Eosinophils # (M) 0.39 k/uL (0-0.7); Lymphocytes # (M) 0.39 k/uL (1.0-4.8); Monocytes # (M) 0.62 k/uL (0-1.0); Myelocytes # (M) 0.08 k/uL (0); Myelocytes % 1 %; Neutrophils % (M) 75 %; Nucleated Red Blood Cells 0 /100 WBC (0-0); Total Cells Counted 200
[2023-02-05 13:11] LABS: RBC Fragments Present
--- NOTE | 2023-02-05 13:39 | P.PN ---
Subjective Progress Note Date: 02/05/23 CHIEF COMPLAINT: Diverticular bleed HISTORY OF PRESENT ILLNESS: Patient status post colonoscopy revealing diverticulosis. There is no evidence of active GI bleed. It is presumed patient had bleeding from diverticular disease. Patient continues to feel short of breath and does have cough. She is being treated for pneumonia and CHF exacerbation. She's on IV Lasix. She is followed by pulmonary service. Cardiology did evaluate patient regarding anticoagulation. From there standpoint Eliquis can be stopped. The Plavix is likely due to patient's history of TIA. Patient's oral intake continues to be decreased. She does continue to have some left-sided abdominal pain. She is having bowel movements. No blood reported. She does described as dark and thick. Afebrile. WBC is 7.7 hemoglobin is down to 6.7 platelets are 94 blast cells are 5 sodium 134 potassium 3.9 creatinine 0.75 albumin 1.8 Patient seen and examined with Dr. Sierra PHYSICAL EXAM: VITAL SIGNS: Reviewed. GENERAL: Well-developed in no acute distress. HEENT: No sclera icterus. Extraocular movements grossly intact. Moist buccal mucosa. Head is atraumatic, normocephalic. ABDOMEN: Soft. Nondistended. Mild tenderness left lower abdomen NEUROLOGIC: Alert and oriented. Cranial nerves II through XII grossly intact. ASSESSMENT: 1. Acute GI bleed likely due to a diverticular bleed. Improved. 2. Acute sigmoid diverticulitis. No further evidence of diverticulitis on CT 3. Abdominal pain and vomiting 4. Leukocytosis 5. Pneumonia and fluid overload PLAN: -Continue regular diet -Consult dietitian for calorie count. Would like to try to discontinue TPN if patient's oral intake is adequate -Continue to hold Plavix and Eliquis. Appreciate cardiology recommendations -No surgical intervention planned -Continue supportive care Physician Cage Maker note has been reviewed by physician. Signing provider agrees with the documented findings, assessment, and plan of care. Objective - Vital Signs Vital signs: Vital Signs Temp 97.8 F 02/05/23 08:00 Pulse 98 02/05/23 12:53 Resp 18 02/05/23 12:00 BP 95/57 02/05/23 12:00 Pulse Ox 94 L 02/05/23 12:00 FiO2 70 02/05/23 05:00 Intake & Output 02/04/23 02/05/2302/05/23 18:59 06:59 18:59 Intake Total 590 1297 Output Total 200 475 650 Balance -200 115 647 Weight 85.729 kg 85.729 kg Intake: Intake, IV Titration 590 1061 Amount Mvi, Adult No.4 with Vit 490 K 10 ml Trace (Conc-1Ml/ Dose) 1 ml Sodium Acetate 50 meq Potassium Chloride 30 meq Magnesium Sulfate gm 1 gm Calcium Gluconate 1 gm Sodium Phosphate 9 mmol In Amino Acids 5 %/Dextrose 20 % 1,000 ml @ 65 mls/hr IV . BY DURATION [facility] Rx#: [id number] Sodium Acetate 56 meq 1061 Potassium Chloride 34 meq Magnesium Sulfate gm 1.5 gm Calcium Gluconate 1 gm Sodium Phosphate 9 mmol In Amino Acids 5 %/ Dextrose 20 % 1,000 ml @ 65 mls/hr IV .BY DURATION [facility] Rx#:[id number] metroNIDAZOLE-NS PMX 500 100 mg In Saline 1 100ml.bag @ 100 mls/hr IVPB Q8HR [facility] Rx#:[id number] Oral 236 Output: Urine 200 475 650 Other: Voiding Method External Catheter Diaper External Catheter # Voids 1 # Bowel Movements 1 - Labs CBC & Chem 7: 02/05/23 11:07 02/05/23 11:07 Labs: Abnormal Lab Results - Last 24 Hours (Table) 02/04/23 02/04/23 02/04/23 Range/Units 08:50 16:52 20:11 RBC (3.80-5.40) m/uL Hgb (11.4-16.0) gm/dL Hct (34.0-46.0) % RDW (11.5-15.5) % Plt Count 99 L (150-450) k/uL Blast Cells % 6 H* % Lymphocytes # (Manual) (1.0-4.8) k/uL Metamyelocytes # (Man) 0.09 H (0) k/uL Myelocytes # (Manual) (0) k/uL Blast Cells # (Man) 0.52 H (0) k/uL Sodium (137-145) mmol/L BUN (7-17) mg/dL Glucose (74-99) mg/dL POC Glucose (mg/dL) 387 H 358 H (70-110) mg/dL Calcium (8.4-10.2) mg/dL Total Protein (6.3-8.2) g/dL Albumin (3.5-5.0) g/dL 02/04/23 02/05/23 02/05/23 Range/Units 23:57 06:17 11:07 RBC (3.80-5.40) m/uL Hgb (11.4-16.0) gm/dL Hct (34.0-46.0) % RDW (11.5-15.5) % Plt Count (150-450) k/uL Blast Cells % % Lymphocytes # (Manual) (1.0-4.8) k/uL Metamyelocytes # (Man) (0) k/uL Myelocytes # (Manual) (0) k/uL Blast Cells # (Man) (0) k/uL Sodium 134 L (137-145) mmol/L BUN 42 H (7-17) mg/dL Glucose 240 H (74-99) mg/dL POC Glucose (mg/dL) 387 H 316 H (70-110) mg/dL Calcium 7.0 L (8.4-10.2) mg/dL Total Protein 4.3 L (6.3-8.2) g/dL Albumin 1.8 L (3.5-5.0) g/dL 02/05/23 02/05/23 Range/Units 11:07 11:36 RBC 2.66 L (3.80-5.40) m/uL Hgb 6.7 L* (11.4-16.0) gm/dL Hct 21.4 L (34.0-46.0) % RDW 25.3 H (11.5-15.5) % Plt Count 94 L (150-450) k/uL Blast Cells % 5 H* % Lymphocytes # (Manual) 0.39 L (1.0-4.8) k/uL Metamyelocytes # (Man) (0) k/uL Myelocytes # (Manual) 0.08 H (0) k/uL Blast Cells # (Man) 0.39 H (0) k/uL Sodium (137-145) mmol/L BUN (7-17) mg/dL Glucose (74-99) mg/dL POC Glucose (mg/dL) 264 H (70-110) mg/dL Calcium (8.4-10.2) mg/dL Total Protein (6.3-8.2) g/dL Albumin (3.5-5.0) g/dL Microbiology - Last 24 Hours (Table) 02/03/23 06:36 Gram Stain - Final Sputum Sputum Culture - Final 02/01/23 11:32 Blood Culture - Preliminary Blood No Growth after 72 hours
--- NOTE | 2023-02-05 14:26 | P.PN ---
Subjective Progress Note Date: 02/05/23 Principal diagnosis: Shortness of breath, low saturations. Pulmonary consult dated 02/03/2023. A 72-year-old female who was seen initially in the emergency department on January 22, complaining of rectal bleeding. The patient recently had an EGD and colonoscopy, prior to her admission, about 3 weeks prior. The patient was asked to come to the emergency department, by her surgeon, for her new onset rectal bleeding. The patient does have a history of atrial fibrillation for which she takes a blood thinner. She apparently denied other complaints, although today when I talked her, she states that she's had shortness of breath all along. It has gotten worse so. We will asked to see her, for a new abnormality on chest x-ray, as well as increasing oxygen requirements. On January 22, the patient have a colonoscopy, which did not reveal any active GI bleeding. A chest x-ray on January 28 showed small bilateral pleural effusions. The x-ray on February 02 showed evidence of focal airspace disease involving the left midlung. This was a new finding. Currently, the patient's on 6 L of oxygen, with a saturation of 94%. She is mildly febrile with temperature 100.1F. Heart rate 92 bpm. Respiratory rate 22, and blood pressure 90/50. White count 14.1, hemoglobin 9.4, hematocrit 30.4, and platelet count 224,000. Sodium 135, potassium 4.5, chlorides 102, CO2 24, BUN 29, and creatinine 0.71. Albumin is 2.6. N-terminal proBNP is elevated at 11,000. Blood and sputum sampling is negative. The patient is on Flagyl and vancomycin and aztreonam as per infectious diseases. Progress note dated 02/04/2023. 72-year-old female seen for the first time, yesterday in consultation. His been here in the hospital for nearly 2 weeks, and we're only consulted yesterday. Anyway, we are consulted because of increasing oxygen requirements. Last night, the patient was on BiPAP. Settings included 12/5 and 80%. She's getting TPN at 65 mL an hour, and saline at 10 mL an hour. She was given some diuretic by my nurse practitioner. She's currently on 15 L high flow oxygen. She states that she is feeling better. Currently labs include a white count of 8.6, hemoglobin 7.7, hematocrit 24.4, and platelet count of 99,000. Sodium 135, potassium 4, chlorides 105, CO2 21, anion gap 9, BUN 34, and creatinine 0.8. Albumin is 2. Chest x-ray suggests some pulmonary edema, which is slightly worse compared to the prior evaluation. There is some clearing of consolidation in the left pulmonary hilar area. The most recent N-terminal proBNP is 11,000. Progress note dated 02/05/2023. 72-year-old female seen again in room 383. The patient was seen in consultation 2 days ago. Please see my note above. Currently, the patient is on 15 L high flow oxygen. Clinically though, she feels better. Her chest x-ray shows evidence of CHF. She is not receiving any IV fluids. White count 7.7, hemoglobin 6.7, hematocrit 21.4, and platelet count 94,000. Sodium 134, potassium 3.9, chlorides 104, CO2 22, BUN 42, creatinine 0.75. Albumin is 1.8. The chest x-ray from February 04 has been previously evaluated. Objective - Vital Signs Vital signs: Vital Signs Temp 97.8 F 02/05/23 08:00 Pulse 98 02/05/23 12:53 Resp 18 02/05/23 12:00 BP 95/57 02/05/23 12:00 Pulse Ox 94 L 02/05/23 12:00 FiO2 70 02/05/23 05:00 Intake & Output 02/04/23 02/05/23 02/05/23 18:59 06:59 18:59 Intake Total 590 1297 Output Total 200 475 650 Balance -200 115 647 Weight 85.729 kg 85.729 kg Intake: Intake, IV Titration 590 1061 Amount Mvi, Adult No.4 with Vit 490 K 10 ml Trace (Conc-1Ml/ Dose) 1 ml Sodium Acetate 50 meq Potassium Chloride 30 meq Magnesium Sulfate gm 1 gm Calcium Gluconate 1 gm Sodium Phosphate 9 mmol In Amino Acids 5 %/Dextrose 20 % 1,000 ml @ 65 mls/hr IV . BY DURATION [facility] Rx#: [id number] Sodium Acetate 56 meq 1061 Potassium Chloride 34 meq Magnesium Sulfate gm 1.5 gm Calcium Gluconate 1 gm Sodium Phosphate 9 mmol In Amino Acids 5 %/ Dextrose 20 % 1,000 ml @ 65 mls/hr IV .BY DURATION [facility] Rx#:[id number] metroNIDAZOLE-NS PMX 500 100 mg In Saline 1 100ml.bag @ 100 mls/hr IVPB Q8HR [facility] Rx#:[id number] Oral 236 Output: Urine 200 475 650 Other: Voiding Method External Catheter Diaper Diaper External Catheter External Catheter # Voids 1 # Bowel Movements 1 - Exam No acute distress, oriented 3. Currently on 15 L high flow oxygen. HEENT examination is grossly unremarkable. Neck supple. Full range of motion. No adenopathy thyromegaly or neck vein distention. Cardiovascular examination reveals regular rhythm rate. S1-S2 normal. No S3 or S4. No discernible murmur noted. Heart sounds are distant. Heart rate 95 bpm. Lungs reveal scattered bilateral rhonchi, and crackles. Breath sounds equal. No wheezes. Saturations are 95% on 15 L oxygen. Abdomen obese, but soft. Extremities are intact. No cyanosis or clubbing. Mild edema noted. Skin is without rash or lesion. Neurologic examination is brief but nonfocal. - Labs CBC & Chem 7: 02/05/23 11:07 02/05/23 11:07 Labs: Abnormal Lab Results - Last 24 Hours (Table) 02/04/23 02/04/23 02/04/23 Range/Units 08:50 16:52 20:11 RBC (3.80-5.40) m/uL Hgb (11.4-16.0) gm/dL Hct (34.0-46.0) % RDW (11.5-15.5) % Plt Count 99 L (150-450) k/uL Blast Cells % 6 H* % Lymphocytes # (Manual) (1.0-4.8) k/uL Metamyelocytes # (Man) 0.09 H (0) k/uL Myelocytes # (Manual) (0) k/uL Blast Cells # (Man) 0.52 H (0) k/uL Sodium (137-145) mmol/L BUN (7-17) mg/dL Glucose (74-99) mg/dL POC Glucose (mg/dL) 387 H 358 H (70-110) mg/dL Calcium (8.4-10.2) mg/dL Total Protein (6.3-8.2) g/dL Albumin (3.5-5.0) g/dL Crossmatch 02/04/23 02/05/23 02/05/23 Range/Units 23:57 06:17 11:07 RBC (3.80-5.40) m/uL Hgb (11.4-16.0) gm/dL Hct (34.0-46.0) % RDW (11.5-15.5) % Plt Count (150-450) k/uL Blast Cells % % Lymphocytes # (Manual) (1.0-4.8) k/uL Metamyelocytes # (Man) (0) k/uL Myelocytes # (Manual) (0) k/uL Blast Cells # (Man) (0) k/uL Sodium 134 L (137-145) mmol/L BUN 42 H (7-17) mg/dL Glucose 240 H (74-99) mg/dL POC Glucose (mg/dL) 387 H 316 H (70-110) mg/dL Calcium 7.0 L (8.4-10.2) mg/dL Total Protein 4.3 L (6.3-8.2) g/dL Albumin 1.8 L (3.5-5.0) g/dL Crossmatch 02/05/23 02/05/23 02/05/23 Range/Units 11:07 11:36 12:34 RBC 2.66 L (3.80-5.40) m/uL Hgb 6.7 L* (11.4-16.0) gm/dL Hct 21.4 L (34.0-46.0) % RDW 25.3 H (11.5-15.5) % Plt Count 94 L (150-450) k/uL Blast Cells % 5 H* % Lymphocytes # (Manual) 0.39 L (1.0-4.8) k/uL Metamyelocytes # (Man) (0) k/uL Myelocytes # (Manual) 0.08 H (0) k/uL Blast Cells # (Man) 0.39 H (0) k/uL Sodium (137-145) mmol/L BUN (7-17) mg/dL Glucose (74-99) mg/dL POC Glucose (mg/dL) 264 H (70-110) mg/dL Calcium (8.4-10.2) mg/dL Total Protein (6.3-8.2) g/dL Albumin (3.5-5.0) g/dL Crossmatch See Detail Microbiology - Last 24 Hours (Table) 02/01/23 11:32 Blood Culture - Preliminary Blood No Growth after 96 hours 02/03/23 06:36 Gram Stain - Final Sputum Sputum Culture - Final Assessment and Plan Assessment: Acute hypoxemic respiratory failure, with progressive shortness of breath, and worsening saturations, likely multifactorial, in part related to fluid overload, as well as possible pneumonia, left midlung and left perihilar region. Initial admission to hospital for GI bleeding, with negative colonoscopy. Transcatheter aortic valve replacement, March 2022. History of atrial fibrillation. History of CAD. History of CVA. History of COPD, secondary to ongoing tobacco use with nicotine addiction. Diabetes mellitus. GERD. Hyperlipidemia. History of hypertension. History of obstructive sleep apnea syndrome. History of cervical cancer. Multiple other medical problems and comorbidities. Plan: Plan dated 02/03/2023. Currently, the patient's on good antibiotics as per infectious diseases. This includes Flagyl, vancomycin, and aztreonam. Thus far, all microbiologic sampling has been negative. In addition, the patient's N-terminal proBNP is elevated, and she should be given some diuretic. If not already done, a pro- calcitonin level should be ordered. We will continue to follow the patient and make recommendations along the way. Prognosis is guarded. Medications are adjusted accordingly. Labs x-rays and medications are all reviewed. Plan dated 02/04/2023. Iinitially gave the patient some Lasix last night for worsening hypoxemia. He also ordered some BiPAP with settings of 12/5 and 80%. She appears to be feeling a bit better today. Currently on 15 L high flow oxygen. We will continue to follow the patient carefully. She should get intermittent doses of diuretic. She's currently on antibiotic for possible pneumonia. Her pro- calcitonin level was elevated. Plan dated 02/05/2023. The patient is seen today, in room 383. She remains on high flow nasal O2. She remains on antibiotics as per infectious diseases. She is also receiving Lasix, 40 mg IV push twice a day. She also is on breathing treatments including formoterol, budesonide, and albuterol sulfate mixed with ipratropium bromide. We will continue to follow make recommendations along the way. Prognosis is guarded. Time with Patient: Less than 30
[2023-02-05] MEDS: HYDROcodone/APAP 5-325MG 1 EACH TAB PO PRN (14:56)
--- NOTE | 2023-02-05 15:16 | P.PN ---
Subjective Progress Note Date: 02/05/23 Principal diagnosis: Fever possible pneumonia Patient is a 72-year-old female with a past medical history negative for hypertension hyperlipidemia diabetes mellitus CVA TIA cervical cancer did have a history of atrial fibrillation on anticoagulation presenting to the [facility] on 01/22/2023 for evaluation of rectal bleeding , patient diagnosed with diverticulitis and has been treated with Levaquin and Flagyl, patient did spike fever prompting this infection consultation. On today's evaluation early 02/05/2023, the patient is afebrile this morning, the patient is breathing more comfortably however currently requiring 15L high flow nasal cannula oxygen, patient denies any worsening cough or sputum production, patient denies nausea no vomiting abdominal pain has decreased in intensity Objective - Vital Signs Vital signs: Vital Signs Temp 97.8 F 02/05/23 08:00 Pulse 98 02/05/23 12:53 Resp 18 02/05/23 12:00 BP 95/57 02/05/23 12:00 Pulse Ox 94 L 02/05/23 12:00 FiO2 70 02/05/23 05:00 Intake & Output 02/04/23 02/05/23 02/05/23 18:59 06:59 18:59 Intake Total 590 1297 Output Total 200 475 650 Balance -200 115 647 Weight 85.729 kg 85.729 kg Intake: Intake, IV Titration 590 1061 Amount Mvi, Adult No.4 with Vit 490 K 10 ml Trace (Conc-1Ml/ Dose) 1 ml Sodium Acetate 50 meq Potassium Chloride 30 meq Magnesium Sulfate gm 1 gm Calcium Gluconate 1 gm Sodium Phosphate 9 mmol In Amino Acids 5 %/Dextrose 20 % 1,000 ml @ 65 mls/hr IV . BY DURATION [facility] Rx#: [id number] Sodium Acetate 56 meq 1061 Potassium Chloride 34 meq Magnesium Sulfate gm 1.5 gm Calcium Gluconate 1 gm Sodium Phosphate 9 mmol In Amino Acids 5 %/ Dextrose 20 % 1,000 ml @ 65 mls/hr IV .BY DURATION [facility] Rx#:[id number] metroNIDAZOLE-NS PMX 500 100 mg In Saline 1 100ml.bag @ 100 mls/hr IVPB Q8HR [facility] Rx#:[id number] Oral 236 Output: Urine 200 475 650 Other: Voiding Method External Catheter Diaper External Catheter # Voids 1 # Bowel Movements 1 - Exam GENERAL DESCRIPTION: An elderly female lying in bed in no distress RESPIRATORY SYSTEM: Unlabored breathing , decreased breath sounds at bases HEART: S1 S2 regular rate and rhythm , ABDOMEN: Soft , no tenderness EXTREMITIES: No edema feet - Labs CBC & Chem 7: 02/05/23 11:07 02/05/23 11:07 Labs: Abnormal Lab Results - Last 24 Hours (Table) 02/04/23 02/04/23 02/04/23 Range/Units 08:50 16:52 20:11 RBC (3.80-5.40) m/uL Hgb (11.4-16.0) gm/dL Hct (34.0-46.0) % RDW (11.5-15.5) % Plt Count 99 L (150-450) k/uL Blast Cells % 6 H* % Lymphocytes # (Manual) (1.0-4.8) k/uL Metamyelocytes # (Man) 0.09 H (0) k/uL Myelocytes # (Manual) (0) k/uL Blast Cells # (Man) 0.52 H (0) k/uL Sodium (137-145) mmol/L BUN (7-17) mg/dL Glucose (74-99) mg/dL POC Glucose (mg/dL) 387 H 358 H (70-110) mg/dL Calcium (8.4-10.2) mg/dL Total Protein (6.3-8.2) g/dL Albumin (3.5-5.0) g/dL 02/04/23 02/05/23 02/05/23 Range/Units 23:57 06:17 11:07 RBC (3.80-5.40) m/uL Hgb (11.4-16.0) gm/dL Hct (34.0-46.0) % RDW (11.5-15.5) % Plt Count (150-450) k/uL Blast Cells % % Lymphocytes # (Manual) (1.0-4.8) k/uL Metamyelocytes # (Man) (0) k/uL Myelocytes # (Manual) (0) k/uL Blast Cells # (Man) (0) k/uL Sodium 134 L (137-145) mmol/L BUN 42 H (7-17) mg/dL Glucose 240 H (74-99) mg/dL POC Glucose (mg/dL) 387 H 316 H (70-110) mg/dL Calcium 7.0 L (8.4-10.2) mg/dL Total Protein 4.3 L (6.3-8.2) g/dL Albumin 1.8 L (3.5-5.0) g/dL 02/05/23 02/05/23 Range/Units 11:07 11:36 RBC 2.66 L (3.80-5.40) m/uL Hgb 6.7 L* (11.4-16.0) gm/dL Hct 21.4 L (34.0-46.0) % RDW 25.3 H (11.5-15.5) % Plt Count 94 L (150-450) k/uL Blast Cells % 5 H* % Lymphocytes # (Manual) 0.39 L (1.0-4.8) k/uL Metamyelocytes # (Man) (0) k/uL Myelocytes # (Manual) 0.08 H (0) k/uL Blast Cells # (Man) 0.39 H (0) k/uL Sodium (137-145) mmol/L BUN (7-17) mg/dL Glucose (74-99) mg/dL POC Glucose (mg/dL) 264 H (70-110) mg/dL Calcium (8.4-10.2) mg/dL Total Protein (6.3-8.2) g/dL Albumin (3.5-5.0) g/dL Microbiology - Last 24 Hours (Table) 02/03/23 06:36 Gram Stain - Final Sputum Sputum Culture - Final 02/01/23 11:32 Blood Culture - Preliminary Blood No Growth after 72 hours Assessment and Plan (1) Fever Current Visit: Yes Status: Acute Code(s): R50.9 - FEVER, UNSPECIFIED SNOMED Code(s): 212446583 Plan: 1patient with sepsis in this patient who did have a fever elevated white count present to the hospital predominantly with the GI symptoms specially with abdominal pain and bleeding per rectum patient bleeding seems to have improved however still complaining of diarrhea with admission CT did shows evidence of sigmoid diverticulitis patient also have some urinary symptoms and with exposure to antibiotics concerning for possible CVA versus UTI. 2patient with multiple antibiotic allergies that would limit the number of antibiotics safe to use. 3patient did have elevated CRP procalcitonin chest x-ray concerning for possible left-sided pneumonia, sputum cultures obtained which are currently pending 4patient fever has resolved and the patient white count has normalized 5-patient to continue vancomycin Azactam and Flagyl and monitor clinical course closely Time with Patient: Less than 30
[2023-02-05 16:20] LABS: Glucose,Whole Blood 200 mg/dL (70-110)
--- NOTE | 2023-02-05 18:19 | P.PN ---
Subjective Progress Note Date: 02/05/23 This is a pleasant 72 years old female with multiple medical problems including Atrial Fibrillation, Coronary Artery Disease (CAD), Cancer, COPD, CVA/TIA, Diabetes Mellitus, GERD/Reflux, Hyperlipidemia, Hypertension, Pneumonia, Sleep Apnea/CPAP/BIPAP, Syncope she was discharged from this facility one month ago forpossible GI bleed, TIA, syncope and bronchitis. She was visiting her surgeon yesterday in the outpatient setting and she was referred to emergency room, Patient states that since last Thursday about one week ago she noticed she was not eating well and she had only one piece of pizza because of that. She started having blood per rectum, she will not stretch blood with clots filled the toilet about 3-4 times a day, also she was feeling more lethargic and weak and she slept for 48 hours as she described, complaining OF from abdominal pain mainly in the lower abdomen on the right side since Thursday about /10 like colic comes and goes. Also patient has been vomiting 2-3 times per day but there is no blood. Also patient with poor appetite. Visiting nurse noticed that her blood pressure was on the low side about 80/40 so she decided to go and see her surgeon before here for her to the emergency room. However when I saw the patient this morning she was fully awake and oriented, she looks comfortable pleasant and not in distress, she was complaining only from minimal abdominal pain. On admission she had a fever of 101, she was hypotensive and severely anemic her blood pressure 1000 as79/45, was fluctuation up to 113/45,this morning her blood pressure was 91/46, she is saturating 93% on 3 L oxygen. hemoglobin on admission was 7.7 and 6.1, compared to 9.8 last month for shawn campo. She received 1 unit of blood transfusion and her hemoglobin this morning is 7.4.INR is normal mildly elevated lactic acid came back to normal. Basic metabolic panel and liver enzymes were unremarkable this morning. urine analysis is negative and multiple viruses are undetected including covid ,influenza and RSV she has CT of the abdomen and pelvis with IV contrast showing no bowel obstru ction with mild sigmoid diverticulitis she received 2 L of normal saline and antibiotics with Flagyl and Levaquin. echocardiogram from 04/03/2022 showing ejection fraction of 55-60% 01/24/2022 Patient feels better, she feels stronger, she was walking the hallway. Her blood pressure still borderline but is improving slowly and gradually while she is on IV fluids also she is on midodrine which she thinks is helping her She still reports some blood in his stool but it's mild Hemoglobin is stable about 7.5. She remains on Levaquin and IV Flagyl and normal saline at 1:30 milliliters per hour Check labs in the morning. Currently patient is placed on liquid diets 01/25/2023 Patient is having recurrent vomiting this morning with some worsening upper abdominal pain but her abdomen still looks soft, no guarding or rebound tenderness. She still has a few spots of bleeding per rectum and epistaxis which is mild. Blood pressure actually improved, with no tachycardia, we will alert her midodrine 5 mg twice a day and we'll alert her normal saline 200 mL per hour. She has worsening swelling in her extremities as well. KUB from today is negative for acute process. She remains on Flagyl and Levaquin Surgery team on the case and plan for endoscopy tomorrow treatment Continue with Phenergan 25 mg as patient states is helping her 01/26/2023 Patient is seen and evaluated in follow-up this morning reports she underwent a bowel prep and is scheduled for colonoscopy with general surgery services today. Patient reports she had clear stool and most recent bowel movement was free of any dark stools or blood. Patient also being followed closely and maintained on IV antibiotics in the form of Flagyl and Levaquin for acute diverticulitis. Hemoglobin is currently stable today at 7.7. WBC is elevated at 14.7 and patient will continue on antibiotics. Kidney functions are within normal limits and blood sugars being monitored. Recommend continue with IV Protonix twice daily. Patient is currently afebrile with no reports of chest pain or shortness of breath. Patient is continued on 2 L and would recommend weaning FiO2 as tolerated. Will await colonoscopy report. 01/27/2023 Patient is seen today and is being followed by general surgery as well as hematology. Patient hemoglobin is 7.1 today and wbc is elevated. Hematology recommending IV iron x2 as studies were low. Recommend repeat cbc in am. Patient is currently NPO and continued on IV abx in the form of flagyl and levaquin for diverticulitis. Colonoscopy shows no acute bleed noted, possibly diverticular disease along with sigmoid diverticulitis. Continue with pain management as patient reports abdominal cramping. Patient anticoagulant remains on hold. Patient is afebrile and has been up and walking. 01/28/2023 Patient is seen in follow up with morning and being followed by surgery as well as hematology. Patient hemoglobin is up to 8 today and has received IV iron x2. Patient blast cells 3 today with hematology following closely. Recommending outpatient follow up. Patient reports some improvement in abdominal pain and diet is being slowly advanced per surgery to clear liquids. Recommend to monitor for tolerance. Chest xray was ordered and pending. Patient continued on IV antibiotics and will continue. Need to discuss further with surgery about treatment plan. Patient is afebrile and continues with an elevated WBC. Recommend follow up labs in the am. 01/29/2023 Patient is seen in follow-up with surgery following. Patient hemoglobin is stable currently and maintained off anticoagulation. Patient is a new non-oral iron supplementation and will continue. Patient continues to have elevated WBC currently above 16 and blast cells at 4 today. Patient is continued on IV antibiotics for the diverticulitis and has been maintaining and tolerating clear liquid diet and reports improvement in her abdominal pain with no reports of nausea or vomiting. Chest x-ray showing some overload and patient reports to having some abdominal bloating as well as generalized edema and will give a dose of IV Lasix. Recommend discontinuing IV hydration. Will follow-up with repeat labs. Recommend incentive spirometer and continuing to use at least 10 times every hour while awake. Encouraged increased activity as tolerated patient reports has been up and walking to the whole back. Recommend continued physical therapy. 01/30/2023 Patient is seated evaluated in follow-up continuing to lie in the bed with gener alized weakness. Patient reports she has been up but not as much. Patient is to receive a PICC line in no being started on TPN given her poor oral intake. Electrolyte abnormalities noting potassium of 3.2 and magnesium is 1.1 and will replace and recommend repeat labs. Patient also continues to report abdominal bloating and abdomen is soft and nontender on exam. Patient did receive a dose of IV Lasix yesterday with good output. General surgery starting TPN with dietitian to follow. Encouraged incentive spirometer at the bedside as patient continues to be on oxygen it does not normally wear this in the outpatient setting. Wean FiO2 as tolerated. Repeat CBC shows a hemoglobin 7.1 today and blast cells are increased up to 9 and discussed with oncology team with plans for possible bone marrow biopsy on Thursday. 01/31/2023 Patient is seen and evaluated in follow-up and hemoglobin was 6.9 today and awaiting to receive 2 units of blood with hematology following closely. General surgery following as well and has placed the patient on TPN and has received a PICC line. Electrolytes were replaced in magnesium above 2 and potassium 3.5. Patient's blood pressure on the lower side most likely multifactorial with pain medications and low blood count will add midodrine. Kidney functions worsened along with patient's sodium becoming hyponatremic although difficult to give IV fluids as patient overload easily. Will consult nephrology and appreciate input and recommendations. Patient is afebrile with no reports of nausea or vomiting noted. No reported chest pain or worsening shortness of breath at this time. Patient needs increased activity as tolerated and sitting up in the chair more often. Would recommend PT/OT therapy daily. 02/01/2023 Patient is seen in follow-up today reports she is not feeling well and per nursing staff has been having fevers overnight and continued on antibiotics for diverticulitis with surgery following. Hematology/oncology following as well and planning for possible bone marrow biopsy tomorrow. Patient is continued on TPN and has PICC line continues with indwelling Fermin catheter. Patient is reporting diarrhea and abdominal distention with pain. Infectious disease consulted and pending. Blood sugars have been elevated and was continued on sliding scale and will continue and add long-acting as well. No reports of chest pain or palpitations noted. Patient is wearing oxygen does not normally wear oxygen outpatient. Patient continues with generalized weakness and is continued on clear liquids. 02/02/2023 Patient seen and evaluated in follow-up with multiple medical consultations following. Blast cells remain elevated and hemoglobin currently stable after transfusion. Patient scheduled for bone marrow biopsy in the a.m. Patient also continues on TPN with general surgery following recommending to continue along with IV antibiotics. Infectious disease has been consulted and antibiotics being adjusted as patient had continued fevers and elevated white count. Pro- calcitonin is elevated and will continue. Patient is having elevated blood sugars and have adjusted long-acting and will continue sliding scale and m onitoring closely. Patient is requiring more oxygen demand currently at 5 L and normally does not wear any oxygen. Chest x-ray ordered pending. 02/03/2023 Patient is seen and evaluated in follow-up today with multiple medical consultations following. Overall prognosis remains guarded as patient has multiple comorbidities and medical issues ongoing. Patient currently remains on TPN for poor oral intake and recommend monitoring electrolytes closely replacing per protocol. Patient hemoglobin improved with no active bleeding noted. Patient continues with abdominal pain as well as some shortness of breath and white count remains elevated patient is having fevers. Chest x-ray suggestive of some volume overload and will continue dose of Lasix. Patient underwent bone marrow biopsy with oncology today. Blood sugars remain uncontrolled and will add pre-meal insulins as well as continue long-acting and sliding scale, possibly consider insulin drip. 02/04/2023 Patient is seen and evaluated in follow-up this morning reports she feels somewhat improved although continues to require high flow oxygen and also using BiPAP with pulmonary following. Chest x-ray this morning is suggestive of pulmonary edema and pleural fluid which is the same or slightly worse than previous could be CHF and was given doses of Lasix with improvement. Patient being started on IV Lasix twice daily with nephrology following closely. Hemoglobin is stable at 7.7 and white count is 8.6, blast cells are 6 and oncology following and has underwent bone marrow biopsy which is pending. Kidney functions are stable in magnesium found to be 1.6 and will replace per protocol. Patient continues on TPN and continues to have multiple electrolyte abnormalities at times. Patient also extremely hyperglycemic and will attempt increasing the long-acting with increasing the pre-meal as well as continuing sliding scale and may require an insulin drip. Patient is also continued on IV antibiotics with infectious disease following closely and per medical record patient has been refusing aztreonam and unsure why. Recommend wean FiO2 as tolerated and encouraged increase activity as tolerated 02/05/2023 Patient is seen and evaluated in follow-up this morning currently sitting up at the side of the bed continues to report shortness of breath although feels is improved. Patient is using BiPAP on occasion and currently maintained on 15 L high flow. Patient is maintained on IV Lasix with nephrology following closely. Multiple medical consultations following including general surgery recommending to continue TPN for abdominal pain and poor oral intake. Would recommend decreasing the rate and amount of fluid from TPN and have discussed this with pharmacy along with dietary adjustments are being made. Patient's blood sugars are elevated although more controlled on current regimen and will continue. Hemoglobin found to be 6.9 this morning and will give a unit of PRBC and recommend follow-up labs. Patient is receiving DuoNeb treatments and would recommend follow-up chest x-ray in the a.m. Overall prognosis remains guarded. Review of systems: Constitutional: reports of fatigue, reports not feeling well although feels slightly improved today Cardiovascular: No reports of chest pain or palpitations Respiratory: reports of shortness of breath GI: No reports of nausea, vomiting, or diarrhea, reports decreased abdominal pain : No reports of dysuria or retention Neurovascular: reports of generalized weakness All medications have been reviewed Active Medications Acetaminophen (Acetaminophen Tab 325 Mg Tab) 650 mg PO Q6HR PRN PRN Reason: Fever and/ or Mild Pain Last Admin: 02/05/23 03:44 Dose: 650 mg Hydrocodone Bitart/Acetaminophen (Hydrocodone/Apap 5-325mg 1 Each Tab) 1 each PO Q6HR PRN PRN Reason: Pain Last Admin: 02/05/23 14:56 Dose: 1 each Albuterol/Ipratropium (Ipratropium-Albuterol 3 Ml Neb) 3 ml INHALATION RT-QID [facility] Last Admin: 02/05/23 15:47 Dose: 3 ml Albuterol/Ipratropium (Ipratropium-Albuterol 3 Ml Neb) 3 ml INHALATION RT-Q2H PRN PRN Reason: Shortness Of Breath Or Wheezing Atorvastatin Calcium (Atorvastatin 40 Mg Tab) 40 mg PO HS [facility] Last Admin: 02/04/23 21:14 Dose: 40 mg Baclofen (Baclofen 10 Mg Tab) 10 mg PO [facility] Last Admin: 02/04/23 21:14 Dose: 10 mg Budesonide (Budesonide 1 Mg/2 Ml Nebu) 1 mg INHALATION RT-BID [facility] Last Admin: 02/05/23 09:09 Dose: 1 mg Dextrose/Water (Dextrose 50% Syringe 50 Ml) 25 ml IVP PER PROTOCOL PRN; Protocol PRN Reason: Hypoglycemia Dextrose/Water (Dextrose 50% Syringe 50 Ml) 50 ml IVP PER PROTOCOL PRN; Protocol PRN Reason: Hypoglycemia Ferrous Sulfate (Ferrous Sulfate 325 Mg Tab) 325 mg PO BID-W/MEALS [facility] Last Admin: 02/05/23 14:57 Dose: 325 mg Fluticasone Propionate (Fluticasone 50mcg/Antimony Nasal 16gm) 2 spray EA NOSTRIL DAILY PRN PRN Reason: allergies Last Admin: 01/28/23 16:26 Dose: 2 spray Formoterol Fumarate (Formoterol Fumarate 20 Mcg/2 Ml Nebu) 20 mcg INHALATION RT-BID [facility] Last Admin: 02/05/23 09:08 Dose: 20 mcg Furosemide (Furosemide 10 Mg/Ml 4 Ml Vial) 40 mg IV BID [facility] Last Admin: 02/05/23 09:46 Dose: 40 mg Heparin Sodium (Porcine) (Heparin Sodium,Porcine/Pf 5,000 Unit/0.5 Ml Syringe) 5,000 unit SQ Q12HR [facility] Hydromorphone HCl (Hydromorphone 1 Mg/Ml 1 Ml Syringe) 1 mg IVP Q3H PRN PRN Reason: Moderate to Severe Pain (4-10) Last Admin: 02/03/23 20:21 Dose: 1 mg Metronidazole 500 mg/ IV (Solution) 100 mls @ 100 mls/hr IVPB Q8HR [facility]; Protocol Last Admin: 02/05/23 17:06 Dose: 100 mls/hr Fat Emulsion Intravenous 250 (ml/ IV Solution) 250 mls @ 21 mls/hr IV TuFr [facility] Last Admin: 02/03/23 16:13 Dose: 21 mls/hr Aztreonam 2 gm/ Sodium (Chloride) 100 mls @ 33.3 mls/hr IVPB Q8H [facility]; Protocol Last Admin: 02/05/23 18:08 Dose: 33.3 mls/hr Lactated Ringer's (Lactated Ringers) 1,000 mls @ 20 mls/hr IV .Q24H [facility] Last Admin: 02/04/23 17:15 Dose: Not Given Vancomycin HCl 1,500 mg/ (Sodium Chloride) 500 mls @ 167 mls/hr IVPB Q12H [facility] Last Admin: 02/05/23 14:55 Dose: 167 mls/hr Sodium Acetate 56 meq/Potassium Chloride 34 meq/Magnesium Sulfate 1.5 gm/Calcium Gluconate 1 gm/ Sodium Phosphate 9 mmol/ Amino Acids /Dextrose 1,061 mls @ 65 mls/hr IV .BY DURATION [facility] Last Admin: 02/05/23 12:57 Dose: 65 mls/hr Parenteral Vitamin Supplement 10 ml/ Zinc/Copper/Manganese/Selenium 1 ml/ Sodium Acetate 56 meq/ Potassium Chloride 34 meq/ Magnesium Sulfate 1.5 gm/Calcium Gluconate 1 gm/Sodium Phosphate 9 mmol/ Amino Acids/Dextrose 1,072 mls @ 65 mls/hr IV .BY DURATION [facility] Insulin Aspart (Insulin Aspart (Novolog) 100 Unit/Ml Vial) 0 unit SQ Q6HR [facility]; Protocol Last Admin: 02/05/23 18:10 Dose: 2 unit Insulin Aspart (Insulin Aspart (Novolog) 100 Unit/Ml Vial) 15 unit SQ AC-TID [facility] Last Admin: 02/05/23 18:10 Dose: 15 unit Insulin Detemir (Insulin Detemir (Levemir) 100 Unit/Ml Syr) 35 unit SQ BID@0700,2100 [facility] Last Admin: 02/05/23 09:46 Dose: 35 unit Lidocaine HCl (Lidocaine 1% (10mg/Ml) For Iv Start) 0.1 ml INTRADERMA PER PROTOCOL PRN PRN Reason: IV Start Metoprolol Tartrate (Metoprolol Tartrate 25 Mg Tab) 25 mg PO BID [facility] Last Admin: 02/05/23 09:48 Dose: 25 mg Midodrine (Midodrine 5 Mg Tab) 5 mg PO AC-TID PRN PRN Reason: Hypotension Last Admin: 02/03/23 12:30 Dose: 5 mg Miscellaneous Information (Potassium Replacement Protocol 1 Each Misc) 1 each M ISCELLANE DAILY PRN; Protocol PRN Reason: Per Protocol Miscellaneous Information (Magnesium Replacement Protocol 1 Each Misc) 1 each MISCELLANE DAILY PRN; Protocol PRN Reason: Per Protocol Naloxone HCl (Naloxone 0.4 Mg/Ml 1 Ml Vial) 0.2 mg IV Q2M PRN PRN Reason: Opioid Reversal Ondansetron HCl (Ondansetron 4 Mg/2 Ml Vial) 4 mg IVP Q6HR PRN PRN Reason: Nausea And Vomiting Last Admin: 01/30/23 19:49 Dose: 4 mg Pantoprazole Sodium (Pantoprazole 40 Mg/10 Ml Vial) 40 mg IVP BID [facility] Last Admin: 02/05/23 09:46 Dose: 40 mg Promethazine HCl (Promethazine 25 Mg Tab) 25 mg PO Q6HR PRN PRN Reason: Nausea Last Admin: 01/27/23 13:51 Dose: 25 mg Sertraline HCl (Sertraline 50 Mg Tab) 50 mg PO DAILY [facility] Last Admin: 02/05/23 09:47 Dose: 50 mg Simethicone (Simethicone 80 Mg Chewable) 80 mg PO QID [facility] Last Admin: 02/05/23 13:05 Dose: Not Given Physical exam: GENERAL: The patient is alert and oriented x3, Well developed, well nourished. Obese, elderly and ill-appearing HEENT: Pupils are round and equally reacting to light. EOMI. No scleral icterus. No conjunctival pallor. Normocephalic, atraumatic. No pharyngeal erythema. No thyromegaly. CARDIOVASCULAR: S1 and S2 muffled PULMONARY: Diminished breath sounds bilaterally with some scattered rhonchi and crackles noted ABDOMEN: Soft, obese, lower abdominal tenderness with some bloating, nondistended, normoactive bowel sounds. No palpable organomegaly. MUSCULOSKELETAL: No joint swelling or deformity. EXTREMITIES: No cyanosis, clubbing, or pedal edema. NEUROLOGICAL: Gross neurological examination did not reveal any focal deficits. Diffusely weak SKIN: No rashes. no petechiae. Assessment: Acute anemia, mostly acute blood loss anemia, associated with abdominal pain and sigmoid diverticulitis Diverticular disease as noted on colonoscopy Sigmoid diverticulitis Acute kidney injury, multifactorial possibly secondary to hypotension as well as poor oral intake, improving Severe protein calorie malnutrition secondary to above History of chronic Anemia, iron deficiency Elevated blast cells, currently 5%, possibly secondary to previous chemotherapy or due to recent GI bleeding, bone marrow biopsy on 02/03/2023 Atrial Fibrillation, on Eliquis (ON HOLD) status post Permanent Pacemaker history of anterior abdominal wall fluid collection could be related to seroma Coronary Artery Disease history, status post stent Obesity with BMI of 30.5 COPD, not in exacerbation CVA/TIA history with left foot drop Diabetes Mellitus, uncontrolled with hyperglycemia GERD/Reflux Hyperlipidemia Hypertension Sleep Apnea/CPAP/BIPAP Diabetic neuropathy bilateral legs/feet History of colon cancer with revision/colostomy since reversed and chemo/radiation History of PVD Full code Plan: Recommend continue with antibiotics in the form of now vancomycin and Aztreonam with infectious disease following. Procalcitonin is elevated. Blood cultures thus far remain negative and sputum culture was sent and pending. WBC remains elevated although slightly improved and patient is afebrile recommend incentive spirometer at least 10 times every hour while awake and increased activity as tolerated Recommend to continue weaning FiO2 as tolerated currently on 15 L high flow and also requiring BiPAP intermittently with pulmonary following Gen. surgery following this patient is status post endoscopy with no active bleeding noted likely diverticular recommending to continue TPN until oral intake improves Blood sugars elevated and uncontrolled we'll continue sliding scale and will increase long-acting insulin as well as additional insulin 3 times a day recommend monitor Accu-Cheks Recommend consistent carb diabetic diet Oncology following patient underwent bone marrow biopsy on 02/03/2023 hemoglobin is 6.9 today and will receive a unit of PRBC Recommend follow-up labs in a.m. with a chest x-ray Recommend continue holding eliquis at this time with concerns for possible GI bleed, recommend increased activity as tolerated Due to multiple complex medical issues, prognosis is extremely guarded The impression and plan of care has been dictated by Mindy Saleh, Nurse Practitioner as directed. Dr. Yury MD I have performed a history and examination and MDM of this patient, discussed the same with the dictator, and agree with the dictator's assessment and plan as written ,documented as a scribe. Based on total visit time, I have performed more than 50% of the visit. Objective - Vital Signs Vital signs: Vital Signs Temp 97.8 F 02/05/23 08:00 Pulse 96 02/05/23 16:01 Resp 18 02/05/23 16:00 BP 101/60 02/05/23 16:00 Pulse Ox 96 02/05/23 16:00 FiO2 70 02/05/23 05:00 Intake & Output 02/04/23 02/05/23 02/05/23 18:59 06:59 18:59 Intake Total 590 1537 Output Total 397 693 1976 Balance -200 115 237 Weight 85.729 kg 85.729 kg Intake: Intake, IV Titration 590 1061 Amount Mvi, Adult No.4 with Vit 490 K 10 ml Trace (Conc-1Ml/ Dose) 1 ml Sodium Acetate 50 meq Potassium Chloride 30 meq Magnesium Sulfate gm 1 gm Calcium Gluconate 1 gm Sodium Phosphate 9 mmol In Amino Acids 5 %/Dextrose 20 % 1,000 ml @ 65 mls/hr IV . BY DURATION [facility] Rx#: [id number] Sodium Acetate 56 meq 1061 Potassium Chloride 34 meq Magnesium Sulfate gm 1.5 gm Calcium Gluconate 1 gm Sodium Phosphate 9 mmol In Amino Acids 5 %/ Dextrose 20 % 1,000 ml @ 65 mls/hr IV .BY DURATION [facility] Rx#:[id number] metroNIDAZOLE-NS PMX 500 100 mg In Saline 1 100ml.bag @ 100 mls/hr IVPB Q8HR [facility] Rx#:[id number] Oral 476 Output: Urine 295 198 5700 Other: Voiding Method External Catheter Diaper Diaper External Catheter External Catheter # Voids 1 # Bowel Movements 1 - Labs CBC & Chem 7: 02/05/23 11:07 02/05/23 11:07 Labs: Abnormal Lab Results - Last 24 Hours (Table) 02/04/23 02/04/23 02/05/23 Range/Units 20:11 23:57 06:17 RBC (3.80-5.40) m/uL Hgb (11.4-16.0) gm/dL Hct (34.0-46.0) % RDW (11.5-15.5) % Plt Count (150-450) k/uL Blast Cells % % Lymphocytes # (Manual) (1.0-4.8) k/uL Myelocytes # (Manual) (0) k/uL Blast Cells # (Man) (0) k/uL Sodium (137-145) mmol/L BUN (7-17) mg/dL Glucose (74-99) mg/dL POC Glucose (mg/dL) 358 H 387 H 316 H (70-110) mg/dL Calcium (8.4-10.2) mg/dL Total Protein (6.3-8.2) g/dL Albumin (3.5-5.0) g/dL Crossmatch 02/05/23 02/05/23 02/05/23 Range/Units 11:07 11:07 11:36 RBC 2.66 L (3.80-5.40) m/uL Hgb 6.7 L* (11.4-16.0) gm/dL Hct 21.4 L (34.0-46.0) % RDW 25.3 H (11.5-15.5) % Plt Count 94 L (150-450) k/uL Blast Cells % 5 H* % Lymphocytes # (Manual) 0.39 L (1.0-4.8) k/uL Myelocytes # (Manual) 0.08 H (0) k/uL Blast Cells # (Man) 0.39 H (0) k/uL Sodium 134 L (137-145) mmol/L BUN 42 H (7-17) mg/dL Glucose 240 H (74-99) mg/dL POC Glucose (mg/dL) 264 H (70-110) mg/dL Calcium 7.0 L (8.4-10.2) mg/dL Total Protein 4.3 L (6.3-8.2) g/dL Albumin 1.8 L (3.5-5.0) g/dL Crossmatch 02/05/23 02/05/23 Range/Units 12:34 16:18 RBC (3.80-5.40) m/uL Hgb (11.4-16.0) gm/dL Hct (34.0-46.0) % RDW (11.5-15.5) % Plt Count (150-450) k/uL Blast Cells % % Lymphocytes # (Manual) (1.0-4.8) k/uL Myelocytes # (Manual) (0) k/uL Blast Cells # (Man) (0) k/uL Sodium (137-145) mmol/L BUN (7-17) mg/dL Glucose (74-99) mg/dL POC Glucose (mg/dL) 200 H (70-110) mg/dL Calcium (8.4-10.2) mg/dL Total Protein (6.3-8.2) g/dL Albumin (3.5-5.0) g/dL Crossmatch See Detail Microbiology - Last 24 Hours (Table) 02/01/23 11:32 Blood Culture - Preliminary Blood No Growth after 96 hours 02/03/23 06:36 Gram Stain - Final Sputum Sputum Culture - Final
[2023-02-05 20:24] LABS: Glucose,Whole Blood 207 mg/dL (70-110)
[2023-02-05] MEDS: ATORVASTATIN 40 MG TAB PO SCH (20:27)
[2023-02-05] MEDS: BACLOFEN 10 MG TAB PO SCH (20:28)
[2023-02-05] MEDS: HEPARIN SODIUM,PORCINE/PF 5,000 UNIT/0.5 ML SYRINGE SQ SCH (21:03)
[2023-02-05 23:00] LABS: Glucose,Whole Blood 144 mg/dL (70-110)
[2023-02-05] MEDS ORDERED: FUROSEMIDE 10 MG/ML 10 ML VIAL IV STA (23:14)
--- NOTE | 2023-02-05 23:57 | XR ---
EXAMINATION TYPE: XR chest 1V portable DATE OF EXAM: 02/05/2023 COMPARISON: 02/04/2023 HISTORY: Short of breath TECHNIQUE: FINDINGS: There is some mild pulmonary vascular congestion and interstitial edema. There are chest le ads. There is mild blunting of the costophrenic angles. IMPRESSION: There is some pulmonary edema and small pleural effusions that could be congestive heart failure. Pulmonary congestion increased compared to yesterday.
[2023-02-06] MEDS: metroNIDAZOLE-NS PMX 500 MG in SALINE 1 100ML.BAG IVPB SCH ×2 (00:02→09:05)
[2023-02-06] MEDS: VANCOMYCIN 1,500 MG in SODIUM CHLORIDE 0.9% 500 ML 500 ML IVPB SCH ×2 (00:02→12:24)
[2023-02-06] MEDS: LACTATED RINGERS 1,000 ML IV SCH ×2 (00:47→17:13)
[2023-02-06] MEDS: INSULIN ASPART (NovoLOG) 100 UNIT/ML VIAL SQ SCH ×6 (00:47→17:13)
[2023-02-06] MEDS: MAGNESIUM SULFATE IV SCH ×16 (00:47→09:22)
[2023-02-06] MEDS: POTASSIUM CHLORIDE IV SCH ×16 (00:47→09:22)
[2023-02-06] MEDS: [UNRECOGNIZED DRUG - OTHER] IV SCH ×16 (00:47→09:22)
[2023-02-06] MEDS: SODIUM ACETATE IV SCH ×16 (00:47→09:22)
[2023-02-06] MEDS: AZTREONAM 2 GM in SODIUM CHLORIDE 0.9% 100 ML IVPB SCH ×3 (02:00→17:11)
[2023-02-06 02:03] LABS: Anisocytosis Moderate; HCT 24.7 % (34.0-46.0); HGB 7.9 gm/dL (11.4-16.0); Hypochromasia Slight; MCH 25.7 pg (25.0-35.0); MCHC 32.1 g/dL (31.0-37.0); MCV 80.2 fL (80.0-100.0); Mean Platelet Volume 8.3; Microcytosis Moderate; Poikilocytosis Slight; RBC 3.08 m/uL (3.80-5.40); RDW 23.9 % (11.5-15.5); WBC 8.2 k/uL (3.8-10.6)
[2023-02-06 03:08] LABS: Platelet Count 79 k/uL (150-450)
[2023-02-06] MEDS: HYDROmorphone 1 MG/ML 1 ML SYRINGE IVP PRN (05:01)
[2023-02-06] MEDS ORDERED: DEXTROSE 10% IN WATER 1,000 ML IV SCH (06:15)
[2023-02-06] MEDS: FERROUS SULFATE 325 MG TAB PO SCH ×2 (06:19→17:10)
[2023-02-06 06:20] LABS: Glucose,Whole Blood 202 mg/dL (70-110)
[2023-02-06] MEDS: INSULIN DETEMIR (LEVEMIR) 100 UNIT/ML SYR SQ SCH ×2 (06:23→20:53)
[2023-02-06 07:59] LABS: Anisocytosis Marked; HCT 24.5 % (34.0-46.0); HGB 7.5 gm/dL (11.4-16.0); Hypochromasia Moderate; MCHC 30.7 g/dL (31.0-37.0); MCV 81.4 fL (80.0-100.0); Mean Platelet Volume 8.5; Microcytosis Moderate; Poikilocytosis Slight; RBC 3.01 m/uL (3.80-5.40); RDW 24.2 % (11.5-15.5); WBC 8.1 k/uL (3.8-10.6)
[2023-02-06 08:12] LABS: Platelet Count 79 k/uL (150-450)
--- NOTE | 2023-02-06 08:13 | XR ---
EXAMINATION TYPE: XR chest 1V portable DATE OF EXAM: 02/06/2023 6:58 AM COMPARISON: Chest radiographs from 02/05/2023 TECHNIQUE: XR chest 1V portable Frontal view of the chest. CLINICAL INDICATION:Female, 72 years old with history of short of breath; FINDINGS: Lungs/Pleura: Blunting of both costophrenic angles with bibasilar airspace opacities. No pneumothorax . Pulmonary vascularity: Pulmonary vascular congestion. Heart/mediastinum: Cardiomediastinal silhouette is partially obscured due to overlying and adjacent o pacities. Endovascular aortic valve replacement. Musculoskeletal: No acute osseous pathology. Other findings: Loop recorder overlies the left chest. Left PICC line with distal tip in the high SVC . IMPRESSION: Pulmonary edema and bilateral pleural effusions with cardiomegaly suggestive of CHF exacerbation. Exa m is overall similar to prior. Superimposed infectious process is not excluded.
[2023-02-06 08:14] LABS: Calcium 6.9 mg/dL (8.4-10.2); Magnesium 1.9 mg/dL (1.6-2.3); Potassium 3.9 mmol/L (3.5-5.1)
[2023-02-06] MEDS: FUROSEMIDE 10 MG/ML 4 ML VIAL IV SCH ×3 (08:55→21:08)
[2023-02-06] MEDS: SERTRALINE 50 MG TAB PO SCH (08:55)
[2023-02-06] MEDS: PANTOPRAZOLE 40 MG/10 ML VIAL IVP SCH ×2 (08:55→20:53)
[2023-02-06] MEDS: METOPROLOL TARTRATE 25 MG TAB PO SCH ×2 (08:55→20:53)
[2023-02-06] MEDS: SIMETHICONE 80 MG CHEWABLE PO SCH ×5 (08:56→21:05)
[2023-02-06] MEDS: HEPARIN SODIUM,PORCINE/PF 5,000 UNIT/0.5 ML SYRINGE SQ SCH ×2 (08:56→20:53)
[2023-02-06] MEDS: IPRATROPIUM-ALBUTEROL 3 ML NEB INHALATION SCH ×4 (09:05→19:49)
[2023-02-06] MEDS: BUDESONIDE 1 MG/2 ML NEBU INHALATION SCH ×2 (09:05→19:48)
[2023-02-06] MEDS: FORMOTEROL FUMARATE 20 MCG/2 ML NEBU INHALATION SCH ×2 (09:05→19:48)
--- NOTE | 2023-02-06 11:00 | P.PN ---
Subjective Progress Note Date: 02/06/23 HISTORY OF PRESENT ILLNESS: This is a 72-year-old female with a past medical history significant for aortic valve disease with previous TAVR, paroxysmal atrial fibrillation, syncope, TIA, mild nonobstructive coronary artery disease, and recurrent GI bleeding. Patient follows in the office with Dr. Houston. We have been asked to see the patient in consultation for anticoagulation recommendations. Patient examined at the bedside. The patient is admitted to the hospital secondary to acute GI bleeding. Patient underwent colonoscopy revealing diverticulosis. No evidence of active GI bleeding. It was presumed that the patient had bleeding from diverticular disease. Patient is prescribed Plavix and Eliquis on an outpatient basis. These are currently on hold. Hemoglobin yesterday 7.7. Telemetry reveals sinus tachycardia. * EKG reveals sinus mechanism * Chest xray pulmonary edema and pleural fluid which is the same or slightly worsened last examined, B congestive heart failure. There is clearing of some consolidation at the left pulmonary hilum compared to last exam. * Laboratory data: WBC 8.6. Hemoglobin 7.7. Platelet count 99. Sodium 135. Potassium 4.0. BUN 34. Creatinine 0.80. ProBNP 11,000. * Current home cardiac medications include Eliquis 5mg BID, Lipitor 40 mg at night, Plavix 75 mg daily, amlodipine 10 mg daily * Most recent echocardiogram obtained in March 2022 revealed ejection fraction 55- 60%, mild MR, normally functioning bioprosthetic aortic valve, mild TR * Cardiac catheterization history: January 2022 revealed mild nonobstructive coronary artery disease 02/06/2023 Patient examined this morning at the bedside. Patient denies chest pain or pressure. Telemetry reveals sinus mechanism. Her anticoagulation remains on hold. PHYSICAL EXAM: VITAL SIGNS: Reviewed. GENERAL: Well-developed in no acute distress. HEENT: Head is normocephalic. Pupils are equal, round. Sclerae anicteric. Mucous membranes of the mouth are moist. Neck supple. No JVD or thyromegaly LUNGS: Respirations even and unlabored. Lungs with rhonchi to auscultation bilaterally. HEART: Regular rate and rhythm. S1 and S2 heard. EXTREMITIES: Normal range of motion. No clubbing or cyanosis. Peripheral pulses intact. No lower extremity edema ASSESSMENT: Acute GI bleed, s/p colonoscopy revealing possible diverticular bleeding, no acute bleeding noted Paroxysmal atrial fibrillation Recurrent GI bleeding Mild nonobstructive coronary artery disease without previous stenting History of TIA, on Plavix History of aortic stenosis with previous TAVR History of loop recorder insertion PLAN: Continue current cardiac medications Patient with recurrent issues of bleeding. Risk versus benefit discussed with patient. May discontinue Eliquis. Patient on Plavix for history of TIA. May hold from a cardiac standpoint due to recurrent bleeding No further inpatient recommendations from a cardiac standpoint We will sign off. Please reconsult if needed Nurse practitioner note has been reviewed by physician. Signing provider agrees with the documented findings, assessment, and plan of care. Objective - Vital Signs Vital signs: Vital Signs Temp 97.5 F L 02/06/23 08:49 Pulse 94 02/06/23 09:30 Resp 26 H 02/06/23 08:49 BP 106/66 02/06/23 08:49 Pulse Ox 95 02/06/23 09:06 FiO2 70 02/06/23 09:06 Intake & Output 02/05/23 02/06/23 02/06/23 18:59 06:59 18:59 Intake Total 1537 1130 Output Total 1300 1000 Balance 237 130 Weight 85.729 kg Intake: Intake, IV Titration 1061 770 Amount Mvi, Adult No.4 with Vit 340 K 10 ml Trace (Conc-1Ml/ Dose) 1 ml Sodium Acetate 56 meq Potassium Chloride 34 meq Magnesium Sulfate gm 1.5 gm Calcium Gluconate 1 gm Sodium Phosphate 9 mmol In Amino Acids 5 %/ Dextrose 20 % 1,000 ml @ 60 mls/hr IV .BY DURATION [facility] Rx#:[id number] Sodium Acetate 56 meq 1061 Potassium Chloride 34 meq Magnesium Sulfate gm 1.5 gm Calcium Gluconate 1 gm Sodium Phosphate 9 mmol In Amino Acids 5 %/ Dextrose 20 % 1,000 ml @ 60 mls/hr IV .BY DURATION [facility] Rx#:[id number] Vancomycin 1,500 mg In 330 Sodium Chloride 0.9% 500 ml 500 ml @ 167 mls/hr IVPB Q12H [facility] Rx#: [id number] metroNIDAZOLE-NS PMX 500 100 mg In Saline 1 100ml.bag @ 100 mls/hr IVPB Q8HR [facility] Rx#:[id number] Oral 476 50 Blood Product 310 Rc As-1 Unit 310 [id number] Output: Urine 1300 1000 Other: Voiding Method Diaper Indwelling Catheter Indwelling Catheter External Catheter # Bowel Movements 1 - Labs CBC & Chem 7: 02/06/23 06:21 02/06/23 06:21 Labs: Abnormal Lab Results - Last 24 Hours (Table) 01/31/23 02/05/23 02/05/23 Range/Units 09:56 11:07 11:07 RBC 2.66 L (3.80-5.40) m/uL Hgb 6.7 L* (11.4-16.0) gm/dL Hct 21.4 L (34.0-46.0) % MCHC (31.0-37.0) g/dL RDW 25.3 H (11.5-15.5) % Plt Count 94 L (150-450) k/uL Blast Cells % 5 H* % Lymphocytes # (Manual) 0.39 L (1.0-4.8) k/uL Myelocytes # (Manual) 0.08 H (0) k/uL Blast Cells # (Man) 0.39 H (0) k/uL Sodium 134 L (137-145) mmol/L Carbon Dioxide (22-30) mmol/L BUN 42 H (7-17) mg/dL Glucose 240 H (74-99) mg/dL POC Glucose (mg/dL) (70-110) mg/dL Calcium 7.0 L (8.4-10.2) mg/dL Phosphorus (2.5-4.5) mg/dL Total Protein 4.3 L (6.3-8.2) g/dL Albumin 1.8 L (3.5-5.0) g/dL Crossmatch See Detail 02/05/23 02/05/23 02/05/23 Range/Units 11:36 12:34 16:18 RBC (3.80-5.40) m/uL Hgb (11.4-16.0) gm/dL Hct (34.0-46.0) % MCHC (31.0-37.0) g/dL RDW (11.5-15.5) % Plt Count (150-450) k/uL Blast Cells % % Lymphocytes # (Manual) (1.0-4.8) k/uL Myelocytes # (Manual) (0) k/uL Blast Cells # (Man) (0) k/uL Sodium (137-145) mmol/L Carbon Dioxide (22-30) mmol/L BUN (7-17) mg/dL Glucose (74-99) mg/dL POC Glucose (mg/dL) 264 H 200 H (70-110) mg/dL Calcium (8.4-10.2) mg/dL Phosphorus (2.5-4.5) mg/dL Total Protein (6.3-8.2) g/dL Albumin (3.5-5.0) g/dL Crossmatch See Detail 02/05/23 02/05/23 02/06/23 Range/Units 20:22 22:59 01:32 RBC 3.08 L (3.80-5.40) m/uL Hgb 7.9 L (11.4-16.0) gm/dL Hct 24.7 L (34.0-46.0) % MCHC (31.0-37.0) g/dL RDW 23.9 H (11.5-15.5) % Plt Count 79 L (150-450) k/uL Blast Cells % % Lymphocytes # (Manual) (1.0-4.8) k/uL Myelocytes # (Manual) (0) k/uL Blast Cells # (Man) (0) k/uL Sodium (137-145) mmol/L Carbon Dioxide (22-30) mmol/L BUN (7-17) mg/dL Glucose (74-99) mg/dL POC Glucose (mg/dL) 207 H 144 H (70-110) mg/dL Calcium (8.4-10.2) mg/dL Phosphorus (2.5-4.5) mg/dL Total Protein (6.3-8.2) g/dL Albumin (3.5-5.0) g/dL Crossmatch 02/06/23 02/06/23 02/06/23 Range/Units 06:15 06:21 06:21 RBC 3.01 L (3.80-5.40) m/uL Hgb 7.5 L (11.4-16.0) gm/dL Hct 24.5 L (34.0-46.0) % MCHC 30.7 L (31.0-37.0) g/dL RDW 24.2 H (11.5-15.5) % Plt Count (150-450) k/uL Blast Cells % % Lymphocytes # (Manual) (1.0-4.8) k/uL Myelocytes # (Manual) (0) k/uL Blast Cells # (Man) (0) k/uL Sodium (137-145) mmol/L Carbon Dioxide 21 L (22-30) mmol/L BUN 46 H (7-17) mg/dL Glucose 169 H (74-99) mg/dL POC Glucose (mg/dL) 202 H (70-110) mg/dL Calcium 6.9 L (8.4-10.2) mg/dL Phosphorus (2.5-4.5) mg/dL Total Protein (6.3-8.2) g/dL Albumin (3.5-5.0) g/dL Crossmatch 02/06/23 Range/Units 06:21 RBC (3.80-5.40) m/uL Hgb (11.4-16.0) gm/dL Hct (34.0-46.0) % MCHC (31.0-37.0) g/dL RDW (11.5-15.5) % Plt Count (150-450) k/uL Blast Cells % % Lymphocytes # (Manual) (1.0-4.8) k/uL Myelocytes # (Manual) (0) k/uL Blast Cells # (Man) (0) k/uL Sodium (137-145) mmol/L Carbon Dioxide (22-30) mmol/L BUN (7-17) mg/dL Glucose (74-99) mg/dL POC Glucose (mg/dL) (70-110) mg/dL Calcium (8.4-10.2) mg/dL Phosphorus 5.7 H (2.5-4.5) mg/dL Total Protein (6.3-8.2) g/dL Albumin (3.5-5.0) g/dL Crossmatch Microbiology - Last 24 Hours (Table) 02/01/23 11:32 Blood Culture - Preliminary Blood No Growth after 96 hours 02/03/23 06:36 Gram Stain - Final Sputum Sputum Culture - Final
[2023-02-06 12:20] LABS: Glucose,Whole Blood 130 mg/dL (70-110)
--- NOTE | 2023-02-06 12:21 | P.PN ---
Subjective Patient is seen in follow-up for hyponatremia and acute kidney injury. GFR is back to baseline. On IV Lasix. Received additional doses of IV Lasix last night due to shortness of breath. Currently on BiPAP. Vital signs are stable. General: No acute distress. HEENT: Head exam is unremarkable. On BiPAP. LUNGS: Scattered rhonchi. HEART: Rate and Rhythm are regular. ABDOMEN: Nontender. EXTREMITITES: Trace edema. Objective - Vital Signs Vital signs: Vital Signs Temp 97.5 F L 02/06/23 08:49 Pulse 100 02/06/23 12:07 Resp 27 H 02/06/23 11:13 BP 130/59 02/06/23 11:13 Pulse Ox 93 L 02/06/23 12:07 FiO2 70 02/06/23 11:13 Intake & Output 02/05/23 02/06/23 02/06/23 18:59 06:59 18:59 Intake Total 1537 1130 Output Total 1300 1000 Balance 237 130 Weight 85.729 kg Intake: Intake, IV Titration 1061 770 Amount Mvi, Adult No.4 with Vit 340 K 10 ml Trace (Conc-1Ml/ Dose) 1 ml Sodium Acetate 56 meq Potassium Chloride 34 meq Magnesium Sulfate gm 1.5 gm Calcium Gluconate 1 gm Sodium Phosphate 9 mmol In Amino Acids 5 %/ Dextrose 20 % 1,000 ml @ 60 mls/hr IV .BY DURATION [facility] Rx#:[id number] Sodium Acetate 56 meq 1061 Potassium Chloride 34 meq Magnesium Sulfate gm 1.5 gm Calcium Gluconate 1 gm Sodium Phosphate 9 mmol In Amino Acids 5 %/ Dextrose 20 % 1,000 ml @ 60 mls/hr IV .BY DURATION [facility] Rx#:[id number] Vancomycin 1,500 mg In 330 Sodium Chloride 0.9% 500 ml 500 ml @ 167 mls/hr IVPB Q12H [facility] Rx#: [id number] metroNIDAZOLE-NS PMX 500 100 mg In Saline 1 100ml.bag @ 100 mls/hr IVPB Q8HR [facility] Rx#:[id number] Oral 476 50 Blood Product 310 Rc As-1 Unit 310 [id number] Output: Urine 1300 1000 Other: Voiding Method Diaper Indwelling Catheter Indwelling Catheter External Catheter # Bowel Movements 1 - Labs CBC & Chem 7: 02/06/23 06:21 03/24/23 06:21 Labs: Abnormal Lab Results - Last 24 Hours (Table) 01/31/23 02/05/23 02/05/23 Range/Units 09:56 11:07 11:07 RBC 2.66 L (3.80-5.40) m/uL Hgb 6.7 L* (11.4-16.0) gm/dL Hct 21.4 L (34.0-46.0) % MCHC (31.0-37.0) g/dL RDW 25.3 H (11.5-15.5) % Plt Count 94 L (150-450) k/uL Blast Cells % 5 H* % Lymphocytes # (Manual) 0.39 L (1.0-4.8) k/uL Myelocytes # (Manual) 0.08 H (0) k/uL Blast Cells # (Man) 0.39 H (0) k/uL Sodium 134 L (137-145) mmol/L Carbon Dioxide (22-30) mmol/L BUN 42 H (7-17) mg/dL Glucose 240 H (74-99) mg/dL POC Glucose (mg/dL) (70-110) mg/dL Calcium 7.0 L (8.4-10.2) mg/dL Phosphorus (2.5-4.5) mg/dL Total Protein 4.3 L (6.3-8.2) g/dL Albumin 1.8 L (3.5-5.0) g/dL Crossmatch See Detail 02/05/23 02/05/23 02/05/23 Range/Units 12:34 16:18 20:22 RBC (3.80-5.40) m/uL Hgb (11.4-16.0) gm/dL Hct (34.0-46.0) % MCHC (31.0-37.0) g/dL RDW (11.5-15.5) % Plt Count (150-450) k/uL Blast Cells % % Lymphocytes # (Manual) (1.0-4.8) k/uL Myelocytes # (Manual) (0) k/uL Blast Cells # (Man) (0) k/uL Sodium (137-145) mmol/L Carbon Dioxide (22-30) mmol/L BUN (7-17) mg/dL Glucose (74-99) mg/dL POC Glucose (mg/dL) 200 H 207 H (70-110) mg/dL Calcium (8.4-10.2) mg/dL Phosphorus (2.5-4.5) mg/dL Total Protein (6.3-8.2) g/dL Albumin (3.5-5.0) g/dL Crossmatch See Detail 02/05/23 02/06/23 02/06/23 Range/Units 22:59 01:32 06:15 RBC 3.08 L (3.80-5.40) m/uL Hgb 7.9 L (11.4-16.0) gm/dL Hct 24.7 L (34.0-46.0) % MCHC (31.0-37.0) g/dL RDW 23.9 H (11.5-15.5) % Plt Count 79 L (150-450) k/uL Blast Cells % % Lymphocytes # (Manual) (1.0-4.8) k/uL Myelocytes # (Manual) (0) k/uL Blast Cells # (Man) (0) k/uL Sodium (137-145) mmol/L Carbon Dioxide (22-30) mmol/L BUN (7-17) mg/dL Glucose (74-99) mg/dL POC Glucose (mg/dL) 144 H 202 H (70-110) mg/dL Calcium (8.4-10.2) mg/dL Phosphorus (2.5-4.5) mg/dL Total Protein (6.3-8.2) g/dL Albumin (3.5-5.0) g/dL Crossmatch 02/06/23 02/06/23 02/06/23 Range/Units 06:21 06:21 06:21 RBC 3.01 L (3.80-5.40) m/uL Hgb 7.5 L (11.4-16.0) gm/dL Hct 24.5 L (34.0-46.0) % MCHC 30.7 L (31.0-37.0) g/dL RDW 24.2 H (11.5-15.5) % Plt Count (150-450) k/uL Blast Cells % % Lymphocytes # (Manual) (1.0-4.8) k/uL Myelocytes # (Manual) (0) k/uL Blast Cells # (Man) (0) k/uL Sodium (137-145) mmol/L Carbon Dioxide 21 L (22-30) mmol/L BUN 46 H (7-17) mg/dL Glucose 169 H (74-99) mg/dL POC Glucose (mg/dL) (70-110) mg/dL Calcium 6.9 L (8.4-10.2) mg/dL Phosphorus 5.7 H (2.5-4.5) mg/dL Total Protein (6.3-8.2) g/dL Albumin (3.5-5.0) g/dL Crossmatch Microbiology - Last 24 Hours (Table) 02/01/23 11:32 Blood Culture - Preliminary Blood No Growth after 96 hours 02/03/23 06:36 Gram Stain - Final Sputum Sputum Culture - Final Assessment and Plan Plan: Assessment: 1. Acute kidney injury mostly prerenal secondary to acute blood loss anemia and hypotension. Also received IV contrast on 01/27/2023. Resolved. UA benign. No hydronephrosis noted on imaging. 2. Acute GI bleed status post blood transfusion this admission. No active bleeding noted on colonoscopy. Hemoglobin 7.5 today. Hematology and surgery following. Underwent bone marrow aspiration this admission. Status post blood transfusions this admission. 3. Hyponatremia. Hypervolemic. Also component of poor solute intake and component of hypertonicity from hyperglycemia. Improved. Urine sodium 29 and urine osmolality 655. TSH is slightly high at 6.8. Free T4 normal. 4. Hypomagnesemia from GI losses and poor intake. Replaced. 5. Hypokalemia from poor intake and hypomagnesemia. Replaced. 6. Volume overload. Improving with diuresis. Plan: Maintain TPN per surgery. Maintain IV Lasix - increase frequency to 3 times a day. Cortisol level not low. Blood sugar control. Repeat chest x-ray tomorrow.
--- NOTE | 2023-02-06 12:51 | P.PN ---
Subjective Progress Note Date: 02/06/23 CHIEF COMPLAINT: Diverticular bleed HISTORY OF PRESENT ILLNESS: Patient status post colonoscopy revealing diverticulosis. There is no evidence of active GI bleed. It is presumed patient had bleeding from diverticular disease. Patient continues to have shortness of breath. She is requiring BiPAP. She is being treated for CHF exacerbation and pneumonia. Patient reports no abdominal pain this morning. She is unable to eat due to the BiPAP. She is undergoing a calorie count. There is a TPN shortage. Also the TPN is contributing to patient's fluid overload and elevated blood sugars. TPN has been discontinued at this time. WBC is 8.13 7.5 platelets 79 sodium 137 potassium 3.9 creatinine 0.82 Patient seen and examined with Dr. Sierra PHYSICAL EXAM: VITAL SIGNS: Reviewed. GENERAL: Well-developed in no acute distress. HEENT: No sclera icterus. Extraocular movements grossly intact. Moist buccal mucosa. Head is atraumatic, normocephalic. ABDOMEN: Soft. Nondistended. NEUROLOGIC: Alert and oriented. Cranial nerves II through XII grossly intact. ASSESSMENT: 1. Acute GI bleed likely due to a diverticular bleed. Improved. 2. Acute sigmoid diverticulitis. No further evidence of diverticulitis on CT 3. Abdominal pain and vomiting 4. Leukocytosis 5. Pneumonia and fluid overload PLAN: -Continue regular diet -Discontinue TPN -Continue 72 hour calorie count -Continue to hold Plavix and Eliquis. Appreciate cardiology recommendations -No surgical intervention planned -Continue supportive care -Continue medical management of pneumonia and CHF exacerbation Physician Front End Developer Designer note has been reviewed by physician. Signing provider agrees with the documented findings, assessment, and plan of care. Objective - Vital Signs Vital signs: Vital Signs Temp 97.5 F L 02/06/23 08:49 Pulse 89 02/06/23 12:22 Resp 27 H 02/06/23 11:13 BP 130/59 02/06/23 11:13 Pulse Ox 93 L 02/06/23 12:07 FiO2 70 02/06/23 11:13 Intake & Output 02/05/23 02/06/23 02/06/23 18:59 06:59 18:59 Intake Total 1537 1130 Output Total 1300 1000 Balance 237 130 Weight 85.729 kg Intake: Intake, IV Titration 1061 770 Amount Mvi, Adult No.4 with Vit 340 K 10 ml Trace (Conc-1Ml/ Dose) 1 ml Sodium Acetate 56 meq Potassium Chloride 34 meq Magnesium Sulfate gm 1.5 gm Calcium Gluconate 1 gm Sodium Phosphate 9 mmol In Amino Acids 5 %/ Dextrose 20 % 1,000 ml @ 60 mls/hr IV .BY DURATION [facility] Rx#:[id number] Sodium Acetate 56 meq 1061 Potassium Chloride 34 meq Magnesium Sulfate gm 1.5 gm Calcium Gluconate 1 gm Sodium Phosphate 9 mmol In Amino Acids 5 %/ Dextrose 20 % 1,000 ml @ 60 mls/hr IV .BY DURATION [facility] Rx#:[id number] Vancomycin 1,500 mg In 330 Sodium Chloride 0.9% 500 ml 500 ml @ 167 mls/hr IVPB Q12H [facility] Rx#: [id number] metroNIDAZOLE-NS PMX 500 100 mg In Saline 1 100ml.bag @ 100 mls/hr IVPB Q8HR [facility] Rx#:[id number] Oral 476 50 Blood Product 310 Rc As-1 Unit 310 [id number] Output: Urine 1300 1000 Other: Voiding Method Diaper Indwelling Catheter Indwelling Catheter External Catheter # Bowel Movements 1 - Labs CBC & Chem 7: 02/06/23 06:21 02/06/23 06:21 Labs: Abnormal Lab Results - Last 24 Hours (Table) 01/31/23 02/05/23 02/05/23 Range/Units 09:56 11:07 12:34 RBC (3.80-5.40) m/uL Hgb (11.4-16.0) gm/dL Hct (34.0-46.0) % MCHC (31.0-37.0) g/dL RDW (11.5-15.5) % Plt Count (150-450) k/uL Blast Cells % 5 H* % Lymphocytes # (Manual) 0.39 L (1.0-4.8) k/uL Myelocytes # (Manual) 0.08 H (0) k/uL Blast Cells # (Man) 0.39 H (0) k/uL Carbon Dioxide (22-30) mmol/L BUN (7-17) mg/dL Glucose (74-99) mg/dL POC Glucose (mg/dL) (70-110) mg/dL Calcium (8.4-10.2) mg/dL Phosphorus (2.5-4.5) mg/dL Crossmatch See Detail See Detail 02/05/23 02/05/23 02/05/23 Range/Units 16:18 20:22 22:59 RBC (3.80-5.40) m/uL Hgb (11.4-16.0) gm/dL Hct (34.0-46.0) % MCHC (31.0-37.0) g/dL RDW (11.5-15.5) % Plt Count (150-450) k/uL Blast Cells % % Lymphocytes # (Manual) (1.0-4.8) k/uL Myelocytes # (Manual) (0) k/uL Blast Cells # (Man) (0) k/uL Carbon Dioxide (22-30) mmol/L BUN (7-17) mg/dL Glucose (74-99) mg/dL POC Glucose (mg/dL) 200 H 207 H 144 H (70-110) mg/dL Calcium (8.4-10.2) mg/dL Phosphorus (2.5-4.5) mg/dL Crossmatch 02/06/23 02/06/23 02/06/23 Range/Units 01:32 06:15 06:21 RBC 3.08 L 3.01 L (3.80-5.40) m/uL Hgb 7.9 L 7.5 L (11.4-16.0) gm/dL Hct 24.7 L 24.5 L (34.0-46.0) % MCHC 30.7 L (31.0-37.0) g/dL RDW 23.9 H 24.2 H (11.5-15.5) % Plt Count 79 L (150-450) k/uL Blast Cells % % Lymphocytes # (Manual) (1.0-4.8) k/uL Myelocytes # (Manual) (0) k/uL Blast Cells # (Man) (0) k/uL Carbon Dioxide (22-30) mmol/L BUN (7-17) mg/dL Glucose (74-99) mg/dL POC Glucose (mg/dL) 202 H (70-110) mg/dL Calcium (8.4-10.2) mg/dL Phosphorus (2.5-4.5) mg/dL Crossmatch 02/06/23 02/06/23 02/06/23 Range/Units 06:21 06:21 12:19 RBC (3.80-5.40) m/uL Hgb (11.4-16.0) gm/dL Hct (34.0-46.0) % MCHC (31.0-37.0) g/dL RDW (11.5-15.5) % Plt Count (150-450) k/uL Blast Cells % % Lymphocytes # (Manual) (1.0-4.8) k/uL Myelocytes # (Manual) (0) k/uL Blast Cells # (Man) (0) k/uL Carbon Dioxide 21 L (22-30) mmol/L BUN 46 H (7-17) mg/dL Glucose 169 H (74-99) mg/dL POC Glucose (mg/dL) 130 H (70-110) mg/dL Calcium 6.9 L (8.4-10.2) mg/dL Phosphorus 5.7 H (2.5-4.5) mg/dL Crossmatch Microbiology - Last 24 Hours (Table) 02/01/23 11:32 Blood Culture - Preliminary Blood No Growth after 96 hours 02/03/23 06:36 Gram Stain - Final Sputum Sputum Culture - Final
[2023-02-06 13:21] LABS: Anisocytosis (M) Present; Band Neutrophils % 9 %; Blast Cells # (M) 0.08 k/uL (0); Eosinophils # (M) 0.16 k/uL (0-0.7); Hypochromasia (M) Present; Lymphocytes # (M) 0.49 k/uL (1.0-4.8); Monocytes # (M) 0.41 k/uL (0-1.0); Neutrophils % (M) 77 %; Nucleated Red Blood Cells 0 /100 WBC (0-0); Poikilocytosis (M) Present; Polychromasia Present; Total Cells Counted 100
[2023-02-06 13:22] LABS: Ovalocytes Present; RBC Fragments Present
--- NOTE | 2023-02-06 13:47 | P.PN ---
Subjective Progress Note Date: 02/06/23 Principal diagnosis: Shortness of breath, low saturations. Pulmonary consult dated 02/03/2023. A 72-year-old female who was seen initially in the emergency department on January 22, complaining of rectal bleeding. The patient recently had an EGD and colonoscopy, prior to her admission, about 3 weeks prior. The patient was asked to come to the emergency department, by her surgeon, for her new onset rectal bleeding. The patient does have a history of atrial fibrillation for which she takes a blood thinner. She apparently denied other complaints, although today when I talked her, she states that she's had shortness of breath all along. It has gotten worse so. We will asked to see her, for a new abnormality on chest x-ray, as well as increasing oxygen requirements. On January 22, the patient have a colonoscopy, which did not reveal any active GI bleeding. A chest x-ray on January 28 showed small bilateral pleural effusions. The x-ray on February 02 showed evidence of focal airspace disease involving the left midlung. This was a new finding. Currently, the patient's on 6 L of oxygen, with a saturation of 94%. She is mildly febrile with temperature 100.1F. Heart rate 92 bpm. Respiratory rate 22, and blood pressure 90/50. White count 14.1, hemoglobin 9.4, hematocrit 30.4, and platelet count 224,000. Sodium 135, potassium 4.5, chlorides 102, CO2 24, BUN 29, and creatinine 0.71. Albumin is 2.6. N-terminal proBNP is elevated at 11,000. Blood and sputum sampling is negative. The patient is on Flagyl and vancomycin and aztreonam as per infectious diseases. Progress note dated 02/04/2023. 72-year-old female seen for the first time, yesterday in consultation. His been here in the hospital for nearly 2 weeks, and we're only consulted yesterday. Anyway, we are consulted because of increasing oxygen requirements. Last night, the patient was on BiPAP. Settings included 12/5 and 80%. She's getting TPN at 65 mL an hour, and saline at 10 mL an hour. She was given some diuretic by my nurse practitioner. She's currently on 15 L high flow oxygen. She states that she is feeling better. Currently labs include a white count of 8.6, hemoglobin 7.7, hematocrit 24.4, and platelet count of 99,000. Sodium 135, potassium 4, chlorides 105, CO2 21, anion gap 9, BUN 34, and creatinine 0.8. Albumin is 2. Chest x-ray suggests some pulmonary edema, which is slightly worse compared to the prior evaluation. There is some clearing of consolidation in the left pulmonary hilar area. The most recent N-terminal proBNP is 11,000. Progress note dated 02/05/2023. 72-year-old female seen again in room 383. The patient was seen in consultation 2 days ago. Please see my note above. Currently, the patient is on 15 L high flow oxygen. Clinically though, she feels better. Her chest x-ray shows evidence of CHF. She is not receiving any IV fluids. White count 7.7, hemoglobin 6.7, hematocrit 21.4, and platelet count 94,000. Sodium 134, potassium 3.9, chlorides 104, CO2 22, BUN 42, creatinine 0.75. Albumin is 1.8. The chest x-ray from February 04 has been previously evaluated. Progress note dated 02/06/2023. 72-year-old female seen again today in room 383. The patient was seen in consultation 3 days ago. Currently, the patient is on BiPAP, with settings of 12/5 and 70%. She's getting TPN as well. The patient's all overall condition has remained about the same, or slightly worse. Yesterday, she was on 15 L high flow oxygen. Today she's currently on BiPAP. I did have the nurse give the patient some additional diuretic yesterday. White count 8.1, hemoglobin 7.5, hematocrit 24.5, and platelet count 79,000. Sodium 137, potassium 3.9, chlorides 106, CO2 21, anion gap normal, BUN 46, with a creatinine 0.82. N- terminal proBNP is elevated at 6950. Microbiologic sampling has been negative thus far. Chest x-ray shows evidence of fluid overload/pulmonary edema, bilateral pleural effusions. Objective - Vital Signs Vital signs: Vital Signs Temp 97.5 F L 02/06/23 08:49 Pulse 91 02/06/23 13:34 Resp 27 H 02/06/23 13:34 BP 130/59 02/06/23 11:13 Pulse Ox 93 L 02/06/23 12:07 FiO2 70 02/06/23 11:13 Intake & Output 02/05/23 02/06/23 02/06/23 18:59 06:59 18:59 Intake Total 1537 1130 Output Total 1300 1000 Balance 237 130 Weight 85.729 kg 85.729 kg Intake: Intake, IV Titration 1061 770 Amount Mvi, Adult No.4 with Vit 340 K 10 ml Trace (Conc-1Ml/ Dose) 1 ml Sodium Acetate 56 meq Potassium Chloride 34 meq Magnesium Sulfate gm 1.5 gm Calcium Gluconate 1 gm Sodium Phosphate 9 mmol In Amino Acids 5 %/ Dextrose 20 % 1,000 ml @ 60 mls/hr IV .BY DURATION [facility] Rx#:[id number] Sodium Acetate 56 meq 1061 Potassium Chloride 34 meq Magnesium Sulfate gm 1.5 gm Calcium Gluconate 1 gm Sodium Phosphate 9 mmol In Amino Acids 5 %/ Dextrose 20 % 1,000 ml @ 60 mls/hr IV .BY DURATION [facility] Rx#:[id number] Vancomycin 1,500 mg In 330 Sodium Chloride 0.9% 500 ml 500 ml @ 167 mls/hr IVPB Q12H [facility] Rx#: [id number] metroNIDAZOLE-NS PMX 500 100 mg In Saline 1 100ml.bag @ 100 mls/hr IVPB Q8HR [facility] Rx#:[id number] Oral 476 50 Blood Product 310 Rc As-1 Unit 310 [id number] Output: Urine 1300 1000 Other: Voiding Method Diaper Indwelling Catheter Indwelling Catheter External Catheter # Bowel Movements 1 - Exam No acute distress, oriented 3. Currently on BiPAP. HEENT examination is grossly unremarkable. Neck supple. Full range of motion. No adenopathy thyromegaly or neck vein distention. Cardiovascular examination reveals regular rhythm rate. S1-S2 normal. No S3 or S4. No discernible murmur noted. Heart sounds are distant. Heart rate 89 bpm. Lungs reveal scattered bilateral rhonchi, and crackles. Breath sounds equal. No wheezes. Saturations are 96% on BiPAP. Abdomen obese, but soft. Extremities are intact. No cyanosis or clubbing. Mild edema noted. Skin is without rash or lesion. Neurologic examination is brief but nonfocal. - Labs CBC & Chem 7: 02/06/23 06:21 02/06/23 06:21 Labs: Abnormal Lab Results - Last 24 Hours (Table) 01/31/23 02/05/23 02/05/23 Range/Units 09:56 12:34 16:18 RBC (3.80-5.40) m/uL Hgb (11.4-16.0) gm/dL Hct (34.0-46.0) % MCHC (31.0-37.0) g/dL RDW (11.5-15.5) % Plt Count (150-450) k/uL Blast Cells % % Lymphocytes # (Manual) (1.0-4.8) k/uL Blast Cells # (Man) (0) k/uL Carbon Dioxide (22-30) mmol/L BUN (7-17) mg/dL Glucose (74-99) mg/dL POC Glucose (mg/dL) 200 H (70-110) mg/dL Calcium (8.4-10.2) mg/dL Phosphorus (2.5-4.5) mg/dL Crossmatch See Detail See Detail 02/05/23 02/05/23 02/06/23 Range/Units 20:22 22:59 01:32 RBC 3.08 L (3.80-5.40) m/uL Hgb 7.9 L (11.4-16.0) gm/dL Hct 24.7 L (34.0-46.0) % MCHC (31.0-37.0) g/dL RDW 23.9 H (11.5-15.5) % Plt Count 79 L (150-450) k/uL Blast Cells % % Lymphocytes # (Manual) (1.0-4.8) k/uL Blast Cells # (Man) (0) k/uL Carbon Dioxide (22-30) mmol/L BUN (7-17) mg/dL Glucose (74-99) mg/dL POC Glucose (mg/dL) 207 H 144 H (70-110) mg/dL Calcium (8.4-10.2) mg/dL Phosphorus (2.5-4.5) mg/dL Crossmatch 02/06/23 02/06/23 02/06/23 Range/Units 06:15 06:21 06:21 RBC 3.01 L (3.80-5.40) m/uL Hgb 7.5 L (11.4-16.0) gm/dL Hct 24.5 L (34.0-46.0) % MCHC 30.7 L (31.0-37.0) g/dL RDW 24.2 H (11.5-15.5) % Plt Count 79 L (150-450) k/uL Blast Cells % 1 H* % Lymphocytes # (Manual) 0.49 L (1.0-4.8) k/uL Blast Cells # (Man) 0.08 H (0) k/uL Carbon Dioxide 21 L (22-30) mmol/L BUN 46 H (7-17) mg/dL Glucose 169 H (74-99) mg/dL POC Glucose (mg/dL) 202 H (70-110) mg/dL Calcium 6.9 L (8.4-10.2) mg/dL Phosphorus (2.5-4.5) mg/dL Crossmatch 02/06/23 02/06/23 Range/Units 06:21 12:19 RBC (3.80-5.40) m/uL Hgb (11.4-16.0) gm/dL Hct (34.0-46.0) % MCHC (31.0-37.0) g/dL RDW (11.5-15.5) % Plt Count (150-450) k/uL Blast Cells % % Lymphocytes # (Manual) (1.0-4.8) k/uL Blast Cells # (Man) (0) k/uL Carbon Dioxide (22-30) mmol/L BUN (7-17) mg/dL Glucose (74-99) mg/dL POC Glucose (mg/dL) 130 H (70-110) mg/dL Calcium (8.4-10.2) mg/dL Phosphorus 5.7 H (2.5-4.5) mg/dL Crossmatch Microbiology - Last 24 Hours (Table) 02/01/23 11:32 Blood Culture - Preliminary Blood No Growth after 96 hours 02/03/23 06:36 Gram Stain - Final Sputum Sputum Culture - Final Assessment and Plan Assessment: Acute hypoxemic respiratory failure, with progressive shortness of breath, and worsening saturations, likely multifactorial, in part related to fluid overload, as well as possible pneumonia, left midlung and left perihilar region. Initial admission to hospital for GI bleeding, with negative colonoscopy. Transcatheter aortic valve replacement, March 2022. History of atrial fibrillation. History of CAD. History of CVA. History of COPD, secondary to ongoing tobacco use with nicotine addiction. Diabetes mellitus. GERD. Hyperlipidemia. History of hypertension. History of obstructive sleep apnea syndrome. History of cervical cancer. Multiple other medical problems and comorbidities. Plan: Plan dated 02/03/2023. Currently, the patient's on good antibiotics as per infectious diseases. This includes Flagyl, vancomycin, and aztreonam. Thus far, all microbiologic sampling has been negative. In addition, the patient's N-terminal proBNP is e levated, and she should be given some diuretic. If not already done, a pro- calcitonin level should be ordered. We will continue to follow the patient and make recommendations along the way. Prognosis is guarded. Medications are adjusted accordingly. Labs x-rays and medications are all reviewed. Plan dated 02/04/2023. Iinitially gave the patient some Lasix last night for worsening hypoxemia. He also ordered some BiPAP with settings of 12/5 and 80%. She appears to be feeling a bit better today. Currently on 15 L high flow oxygen. We will continue to follow the patient carefully. She should get intermittent doses of diuretic. She's currently on antibiotic for possible pneumonia. Her pro- calcitonin level was elevated. Plan dated 02/05/2023. The patient is seen today, in room 383. She remains on high flow nasal O2. She remains on antibiotics as per infectious diseases. She is also receiving Lasix, 40 mg IV push twice a day. She also is on breathing treatments including f ormoterol, budesonide, and albuterol sulfate mixed with ipratropium bromide. We will continue to follow make recommendations along the way. Prognosis is guarded. Plan dated 02/06/2023. The patient is currently on BiPAP, with settings of 12/5 and 70%. The patient's also getting TPN. Labs, x-rays, medications are reviewed. The most recent chest x-ray, done today, shows evidence of fluid overload/CHF, with bilateral pleural effusions. We will continue to follow. Her N-terminal proBNP was also elevated. The patient may warrant transferred to the intensive care unit. Prognosis is guarded. We will continue to follow the patient make recommendations along the way. Time with Patient: Less than 30
--- NOTE | 2023-02-06 15:34 | P.PN ---
Subjective Progress Note Date: 02/06/23 Principal diagnosis: Fever possible pneumonia Patient is a 72-year-old female with a past medical history negative for hypertension hyperlipidemia diabetes mellitus CVA TIA cervical cancer did have a history of atrial fibrillation on anticoagulation presenting to the [facility] on 01/22/2023 for evaluation of rectal bleeding , patient diagnosed with diverticulitis and has been treated with Levaquin and Flagyl, patient did spike fever prompting this infection consultation. On today's evaluation early 02/06/2023, the patient remains to be afebrile, the patient is breathing more comfortably however currently requiring 15L high flow nasal cannula oxygen however has been requiring BiPAP off and on, patient denies any worsening cough or sputum production, patient denies nausea no vomiting abdominal pain has decreased in intensity Objective - Vital Signs Vital signs: Vital Signs Temp 97.5 F L 02/06/23 08:49 Pulse 89 02/06/23 12:22 Resp 27 H 02/06/23 11:13 BP 130/59 02/06/23 11:13 Pulse Ox 93 L 02/06/23 12:07 FiO2 70 02/06/23 11:13 Intake & Output 02/05/23 02/06/23 02/06/23 18:59 06:59 18:59 Intake Total 1537 1130 Output Total 1300 1000 Balance 237 130 Weight 85.729 kg Intake: Intake, IV Titration 1061 770 Amount Mvi, Adult No.4 with Vit 340 K 10 ml Trace (Conc-1Ml/ Dose) 1 ml Sodium Acetate 56 meq Potassium Chloride 34 meq Magnesium Sulfate gm 1.5 gm Calcium Gluconate 1 gm Sodium Phosphate 9 mmol In Amino Acids 5 %/ Dextrose 20 % 1,000 ml @ 60 mls/hr IV .BY DURATION [facility] Rx#:[id number] Sodium Acetate 56 meq 1061 Potassium Chloride 34 meq Magnesium Sulfate gm 1.5 gm Calcium Gluconate 1 gm Sodium Phosphate 9 mmol In Amino Acids 5 %/ Dextrose 20 % 1,000 ml @ 60 mls/hr IV .BY DURATION [facility] Rx#:[id number] Vancomycin 1,500 mg In 330 Sodium Chloride 0.9% 500 ml 500 ml @ 167 mls/hr IVPB Q12H [facility] Rx#: [id number] metroNIDAZOLE-NS PMX 500 100 mg In Saline 1 100ml.bag @ 100 mls/hr IVPB Q8HR [facility] Rx#:[id number] Oral 476 50 Blood Product 310 Rc As-1 Unit 310 [id number] Output: Urine 1300 1000 Other: Voiding Method Diaper Indwelling Catheter Indwelling Catheter External Catheter # Bowel Movements 1 - Exam GENERAL DESCRIPTION: An elderly female lying in bed in no distress RESPIRATORY SYSTEM: Unlabored breathing , decreased breath sounds at bases HEART: S1 S2 regular rate and rhythm , ABDOMEN: Soft , no tenderness EXTREMITIES: No edema feet - Labs CBC & Chem 7: 02/06/23 06:21 02/06/23 06:21 Labs: Abnormal Lab Results - Last 24 Hours (Table) 01/31/23 02/05/23 02/05/23 Range/Units 09:56 11:07 12:34 RBC (3.80-5.40) m/uL Hgb (11.4-16.0) gm/dL Hct (34.0-46.0) % MCHC (31.0-37.0) g/dL RDW (11.5-15.5) % Plt Count (150-450) k/uL Blast Cells % 5 H* % Lymphocytes # (Manual) 0.39 L (1.0-4.8) k/uL Myelocytes # (Manual) 0.08 H (0) k/uL Blast Cells # (Man) 0.39 H (0) k/uL Carbon Dioxide (22-30) mmol/L BUN (7-17) mg/dL Glucose (74-99) mg/dL POC Glucose (mg/dL) (70-110) mg/dL Calcium (8.4-10.2) mg/dL Phosphorus (2.5-4.5) mg/dL Crossmatch See Detail See Detail 02/05/23 02/05/23 02/05/23 Range/Units 16:18 20:22 22:59 RBC (3.80-5.40) m/uL Hgb (11.4-16.0) gm/dL Hct (34.0-46.0) % MCHC (31.0-37.0) g/dL RDW (11.5-15.5) % Plt Count (150-450) k/uL Blast Cells % % Lymphocytes # (Manual) (1.0-4.8) k/uL Myelocytes # (Manual) (0) k/uL Blast Cells # (Man) (0) k/uL Carbon Dioxide (22-30) mmol/L BUN (7-17) mg/dL Glucose (74-99) mg/dL POC Glucose (mg/dL) 200 H 207 H 144 H (70-110) mg/dL Calcium (8.4-10.2) mg/dL Phosphorus (2.5-4.5) mg/dL Crossmatch 02/06/23 02/06/23 02/06/23 Range/Units 01:32 06:15 06:21 RBC 3.08 L 3.01 L (3.80-5.40) m/uL Hgb 7.9 L 7.5 L (11.4-16.0) gm/dL Hct 24.7 L 24.5 L (34.0-46.0) % MCHC 30.7 L (31.0-37.0) g/dL RDW 23.9 H 24.2 H (11.5-15.5) % Plt Count 79 L (150-450) k/uL Blast Cells % % Lymphocytes # (Manual) (1.0-4.8) k/uL Myelocytes # (Manual) (0) k/uL Blast Cells # (Man) (0) k/uL Carbon Dioxide (22-30) mmol/L BUN (7-17) mg/dL Glucose (74-99) mg/dL POC Glucose (mg/dL) 202 H (70-110) mg/dL Calcium (8.4-10.2) mg/dL Phosphorus (2.5-4.5) mg/dL Crossmatch 02/06/23 02/06/23 02/06/23 Range/Units 06:21 06:21 12:19 RBC (3.80-5.40) m/uL Hgb (11.4-16.0) gm/dL Hct (34.0-46.0) % MCHC (31.0-37.0) g/dL RDW (11.5-15.5) % Plt Count (150-450) k/uL Blast Cells % % Lymphocytes # (Manual) (1.0-4.8) k/uL Myelocytes # (Manual) (0) k/uL Blast Cells # (Man) (0) k/uL Carbon Dioxide 21 L (22-30) mmol/L BUN 46 H (7-17) mg/dL Glucose 169 H (74-99) mg/dL POC Glucose (mg/dL) 130 H (70-110) mg/dL Calcium 6.9 L (8.4-10.2) mg/dL Phosphorus 5.7 H (2.5-4.5) mg/dL Crossmatch Microbiology - Last 24 Hours (Table) 02/01/23 11:32 Blood Culture - Preliminary Blood No Growth after 96 hours 02/03/23 06:36 Gram Stain - Final Sputum Sputum Culture - Final Assessment and Plan (1) Fever Current Visit: Yes Status: Acute Code(s): R50.9 - FEVER, UNSPECIFIED S NOMED Code(s): 269611733 Plan: 1patient with sepsis in this patient who did have a fever elevated white count present to the hospital predominantly with the GI symptoms specially with abdominal pain and bleeding per rectum patient bleeding seems to have improved however still complaining of diarrhea with admission CT did shows evidence of sigmoid diverticulitis patient also have some urinary symptoms and with exposure to antibiotics concerning for possible CVA versus UTI. 2patient with multiple antibiotic allergies that would limit the number of ant ibiotics safe to use. 3patient did have elevated CRP procalcitonin chest x-ray concerning for possi ble left-sided pneumonia, sputum cultures obtained which are so for negative 4patient fever has resolved and the patient white count has normalized however respiratory status remains to be borderline 5-patient to continue vancomycin Azactam and Flagyl and monitor clinical course closely Time with Patient: Less than 30
--- NOTE | 2023-02-06 15:34 | P.PN ---
Subjective Progress Note Date: 02/06/23 Principal diagnosis: anemia/elevated blast cells Upon visit today patient is resting in bed. She reports SOB, but states BiPAP is helping improve breathing. Breathing labored. No other reported complaints Objective - Vital Signs Vital signs: Vital Signs Temp 97.5 F L 02/06/23 08:49 Pulse 91 02/06/23 13:34 Resp 27 H 02/06/23 13:34 BP 130/59 02/06/23 11:13 Pulse Ox 93 L 02/06/23 12:07 FiO2 70 02/06/23 11:13 Intake & Output 02/05/23 02/06/23 02/06/23 18:59 06:59 18:59 Intake Total 1537 1130 0 Output Total 1300 1000 Balance 237 130 0 Weight 85.729 kg 85.729 kg Intake: Intake, IV Titration 1061 770 Amount Mvi, Adult No.4 with Vit 340 K 10 ml Trace (Conc-1Ml/ Dose) 1 ml Sodium Acetate 56 meq Potassium Chloride 34 meq Magnesium Sulfate gm 1.5 gm Calcium Gluconate 1 gm Sodium Phosphate 9 mmol In Amino Acids 5 %/ Dextrose 20 % 1,000 ml @ 60 mls/hr IV .BY DURATION [facility] Rx#:[id number] Sodium Acetate 56 meq 1061 Potassium Chloride 34 meq Magnesium Sulfate gm 1.5 gm Calcium Gluconate 1 gm Sodium Phosphate 9 mmol In Amino Acids 5 %/ Dextrose 20 % 1,000 ml @ 60 mls/hr IV .BY DURATION [facility] Rx#:[id number] Vancomycin 1,500 mg In 330 Sodium Chloride 0.9% 500 ml 500 ml @ 167 mls/hr IVPB Q12H [facility] Rx#: [id number] metroNIDAZOLE-NS PMX 500 100 mg In Saline 1 100ml.bag @ 100 mls/hr IVPB Q8HR [facility] Rx#:[id number] Oral 476 50 0 Blood Product 310 Rc As-1 Unit 310 [id number] Output: Urine 1300 1000 Other: Voiding Method Diaper Indwelling Catheter Indwelling Catheter External Catheter # Bowel Movements 1 - Constitutional General appearance: Present: average body habitus, mild distress - EENT Eyes: Present: anicteric sclerae, EOMI ENT: Present: hearing grossly normal - Respiratory Details: breathing labored - Cardiovascular Details: skin warm and dry - Integumentary Integumentary: Present: pale - Musculoskeletal Musculoskeletal: Present: generalized weakness - Psychiatric Psychiatric: Present: A&O x's 3 - Labs CBC & Chem 7: 02/06/23 06:21 02/06/23 06:21 Labs: Abnormal Lab Results - Last 24 Hours (Table) 01/31/23 02/05/23 02/05/23 Range/Units 09:56 12:34 16:18 RBC (3.80-5.40) m/uL Hgb (11.4-16.0) gm/dL Hct (34.0-46.0) % MCHC (31.0-37.0) g/dL RDW (11.5-15.5) % Plt Count (150-450) k/uL Blast Cells % % Lymphocytes # (Manual) (1.0-4.8) k/uL Blast Cells # (Man) (0) k/uL Carbon Dioxide (22-30) mmol/L BUN (7-17) mg/dL Glucose (74-99) mg/dL POC Glucose (mg/dL) 200 H (70-110) mg/dL Calcium (8.4-10.2) mg/dL Phosphorus (2.5-4.5) mg/dL Crossmatch See Detail See Detail 02/05/23 02/05/23 02/06/23 Range/Units 20:22 22:59 01:32 RBC 3.08 L (3.80-5.40) m/uL Hgb 7.9 L (11.4-16.0) gm/dL Hct 24.7 L (34.0-46.0) % MCHC (31.0-37.0) g/dL RDW 23.9 H (11.5-15.5) % Plt Count 79 L (150-450) k/uL Blast Cells % % Lymphocytes # (Manual) (1.0-4.8) k/uL Blast Cells # (Man) (0) k/uL Carbon Dioxide (22-30) mmol/L BUN (7-17) mg/dL Glucose (74-99) mg/dL POC Glucose (mg/dL) 207 H 144 H (70-110) mg/dL Calcium (8.4-10.2) mg/dL Phosphorus (2.5-4.5) mg/dL Crossmatch 02/06/23 02/06/23 02/06/23 Range/Units 06:15 06:21 06:21 RBC 3.01 L (3.80-5.40) m/uL Hgb 7.5 L (11.4-16.0) gm/dL Hct 24.5 L (34.0-46.0) % MCHC 30.7 L (31.0-37.0) g/dL RDW 24.2 H (11.5-15.5) % Plt Count 79 L (150-450) k/uL Blast Cells % 1 H* % Lymphocytes # (Manual) 0.49 L (1.0-4.8) k/uL Blast Cells # (Man) 0.08 H (0) k/uL Carbon Dioxide 21 L (22-30) mmol/L BUN 46 H (7-17) mg/dL Glucose 169 H (74-99) mg/dL POC Glucose (mg/dL) 202 H (70-110) mg/dL Calcium 6.9 L (8.4-10.2) mg/dL Phosphorus (2.5-4.5) mg/dL Crossmatch 02/06/23 02/06/23 Range/Units 06:21 12:19 RBC (3.80-5.40) m/uL Hgb (11.4-16.0) gm/dL Hct (34.0-46.0) % MCHC (31.0-37.0) g/dL RDW (11.5-15.5) % Plt Count (150-450) k/uL Blast Cells % % Lymphocytes # (Manual) (1.0-4.8) k/uL Blast Cells # (Man) (0) k/uL Carbon Dioxide (22-30) mmol/L BUN (7-17) mg/dL Glucose (74-99) mg/dL POC Glucose (mg/dL) 130 H (70-110) mg/dL Calcium (8.4-10.2) mg/dL Phosphorus 5.7 H (2.5-4.5) mg/dL Crossmatch Microbiology - Last 24 Hours (Table) 02/01/23 11:32 Blood Culture - Preliminary Blood No Growth after 120 hours Assessment and Plan (1) Abnormal CBC Current Visit: Yes Status: Acute Priority: High Code(s): R79.89 - OTHER SPECIFIED ABNORMAL FINDINGS OF BLOOD CHEMISTRY SNOMED Code(s): 252521442 (2) Acute diverticulitis Current Visit: Yes Status: Acute Priority: High Code(s): K57.92 - DVTRCLI OF INTEST, PART UNSP, W/O PERF OR ABSCESS W/O BLEED SNOMED Code(s): 297718497 (3) Anemia Current Visit: Yes Status: Acute Priority: High Code(s): D64.9 - ANEMIA, UNSPECIFIED SNOMED Code(s): 588287055 (4) Rectal bleeding Current Visit: Yes Status: Acute Priority: High Code(s): K62.5 - HEMORRHAGE OF ANUS AND RECTUM SNOMED Code(s): 68917463 Plan: Anemia: -Hemoglobin 7.5 today. Has received 3 units PRBCs since admission, last transfusion yesterday -Hx of GI bleeds. Anemia likely related to hematochezia. Denies blood in stool today -Iron studies obtained, iron 120, iron saturation 56%, ferritin 571. Likely elevated due to recent blood transfusions. 2 doses IV iron have been given -Will continue to monitor. Please transfuse for hemoglobin less than 7 or if symptomatic GI bleed: -Hx of GI bleeds -EGD and colonoscopy on 12/17/22 showed no sign of acute GI bleed. -Surgery following. Repeat colonoscopy showed no acute GI bleed, but showed blood tinged stool and diverticular changes. Presumed to be diverticular bleeding. -Recommend to continue to hold eliquis/plavix/no NSAIDs Elevated blast cells: -Blast cells elevated, ranging from 1-9%. -Hx of multiple regimens of chemotherapy. Elevation in blast cells likely acute due to GI bleed and hx of chemotherapy. Plan was to continue to monitor blast cell counts as patient recovers, and f/u outpatient to repeat labs in 4 weeks once patient fully recovers. However, due to continued elevation in blasts, bone marrow biopsy was obtained, results pending -Clinic f/u appt in discharge plan attests: I have performed H&P and developed impression and plan of care for patient, discussed with dictator. I agree with dictated note, documented as a scribe
[2023-02-06] MEDS: DEXTROSE 50% SYRINGE 50 ML IVP PRN (17:11)
[2023-02-06 17:15] LABS: Glucose,Whole Blood 63 mg/dL (70-110)
[2023-02-06 17:33] LABS: Glucose,Whole Blood 129 mg/dL (70-110)
[2023-02-06 18:18] LABS: Glucose,Whole Blood 133 mg/dL (70-110)
[2023-02-06 20:15] LABS: Glucose,Whole Blood 134 mg/dL (70-110)
[2023-02-06] MEDS: ATORVASTATIN 40 MG TAB PO SCH (20:53)
[2023-02-06] MEDS: BACLOFEN 10 MG TAB PO SCH (20:53)
[2023-02-06] MEDS: HYDROcodone/APAP 5-325MG 1 EACH TAB PO PRN (21:08)
--- NOTE | 2023-02-06 23:52 | P.PN ---
Subjective Progress Note Date: 02/06/23 This is a pleasant 72 years old female with multiple medical problems including Atrial Fibrillation, Coronary Artery Disease (CAD), Cancer, COPD, CVA/TIA, Diabetes Mellitus, GERD/Reflux, Hyperlipidemia, Hypertension, Pneumonia, Sleep Apnea/CPAP/BIPAP, Syncope she was discharged from this facility one month ago forpossible GI bleed, TIA, syncope and bronchitis. She was visiting her surgeon yesterday in the outpatient setting and she was referred to emergency room, Patient states that since last Thursday about one week ago she noticed she was not eating well and she had only one piece of pizza because of that. She started having blood per rectum, she will not stretch blood with clots filled the toilet about 3-4 times a day, also she was feeling more lethargic and weak and she slept for 48 hours as she described, complaining OF from abdominal pain mainly in the lower abdomen on the right side since Thursday about /10 like colic comes and goes. Also patient has been vomiting 2-3 times per day but there is no blood. Also patient with poor appetite. Visiting nurse noticed that her blood pressure was on the low side about 80/40 so she decided to go and see her surgeon before here for her to the emergency room. However when I saw the patient this morning she was fully awake and oriented, she looks comfortable pleasant and not in distress, she was complaining only from minimal abdominal pain. On admission she had a fever of 101, she was hypotensive and severely anemic her blood pressure 1000 as79/45, was fluctuation up to 113/45,this morning her blood pressure was 91/46, she is saturating 93% on 3 L oxygen. hemoglobin on admission was 7.7 and 6.1, compared to 9.8 last month for shawn campo. She received 1 unit of blood transfusion and her hemoglobin this morning is 7.4.INR is normal mildly elevated lactic acid came back to normal. Basic metabolic panel and liver enzymes were unremarkable this morning. urine analysis is negative and multiple viruses are undetected including covid ,influenza and RSV she has CT of the abdomen and pelvis with IV contrast showing no bowel obstru ction with mild sigmoid diverticulitis she received 2 L of normal saline and antibiotics with Flagyl and Levaquin. echocardiogram from 04/03/2022 showing ejection fraction of 55-60% 01/24/2022 Patient feels better, she feels stronger, she was walking the hallway. Her blood pressure still borderline but is improving slowly and gradually while she is on IV fluids also she is on midodrine which she thinks is helping her She still reports some blood in his stool but it's mild Hemoglobin is stable about 7.5. She remains on Levaquin and IV Flagyl and normal saline at 1:30 milliliters per hour Check labs in the morning. Currently patient is placed on liquid diets 01/25/2023 Patient is having recurrent vomiting this morning with some worsening upper abdominal pain but her abdomen still looks soft, no guarding or rebound tenderness. She still has a few spots of bleeding per rectum and epistaxis which is mild. Blood pressure actually improved, with no tachycardia, we will alert her midodrine 5 mg twice a day and we'll alert her normal saline 200 mL per hour. She has worsening swelling in her extremities as well. KUB from today is negative for acute process. She remains on Flagyl and Levaquin Surgery team on the case and plan for endoscopy tomorrow treatment Continue with Phenergan 25 mg as patient states is helping her 01/26/2023 Patient is seen and evaluated in follow-up this morning reports she underwent a bowel prep and is scheduled for colonoscopy with general surgery services today. Patient reports she had clear stool and most recent bowel movement was free of any dark stools or blood. Patient also being followed closely and maintained on IV antibiotics in the form of Flagyl and Levaquin for acute diverticulitis. Hemoglobin is currently stable today at 7.7. WBC is elevated at 14.7 and patient will continue on antibiotics. Kidney functions are within normal limits and blood sugars being monitored. Recommend continue with IV Protonix twice daily. Patient is currently afebrile with no reports of chest pain or shortness of breath. Patient is continued on 2 L and would recommend weaning FiO2 as tolerated. Will await colonoscopy report. 01/27/2023 Patient is seen today and is being followed by general surgery as well as hematology. Patient hemoglobin is 7.1 today and wbc is elevated. Hematology recommending IV iron x2 as studies were low. Recommend repeat cbc in am. Patient is currently NPO and continued on IV abx in the form of flagyl and levaquin for diverticulitis. Colonoscopy shows no acute bleed noted, possibly diverticular disease along with sigmoid diverticulitis. Continue with pain management as patient reports abdominal cramping. Patient anticoagulant remains on hold. Patient is afebrile and has been up and walking. 01/28/2023 Patient is seen in follow up with morning and being followed by surgery as well as hematology. Patient hemoglobin is up to 8 today and has received IV iron x2. Patient blast cells 3 today with hematology following closely. Recommending outpatient follow up. Patient reports some improvement in abdominal pain and diet is being slowly advanced per surgery to clear liquids. Recommend to monitor for tolerance. Chest xray was ordered and pending. Patient continued on IV antibiotics and will continue. Need to discuss further with surgery about treatment plan. Patient is afebrile and continues with an elevated WBC. Recommend follow up labs in the am. 01/29/2023 Patient is seen in follow-up with surgery following. Patient hemoglobin is stable currently and maintained off anticoagulation. Patient is a new non-oral iron supplementation and will continue. Patient continues to have elevated WBC currently above 16 and blast cells at 4 today. Patient is continued on IV antibiotics for the diverticulitis and has been maintaining and tolerating clear liquid diet and reports improvement in her abdominal pain with no reports of nausea or vomiting. Chest x-ray showing some overload and patient reports to having some abdominal bloating as well as generalized edema and will give a dose of IV Lasix. Recommend discontinuing IV hydration. Will follow-up with repeat labs. Recommend incentive spirometer and continuing to use at least 10 times every hour while awake. Encouraged increased activity as tolerated patient reports has been up and walking to the whole back. Recommend continued physical therapy. 01/30/2023 Patient is seated evaluated in follow-up continuing to lie in the bed with gener alized weakness. Patient reports she has been up but not as much. Patient is to receive a PICC line in no being started on TPN given her poor oral intake. Electrolyte abnormalities noting potassium of 3.2 and magnesium is 1.1 and will replace and recommend repeat labs. Patient also continues to report abdominal bloating and abdomen is soft and nontender on exam. Patient did receive a dose of IV Lasix yesterday with good output. General surgery starting TPN with dietitian to follow. Encouraged incentive spirometer at the bedside as patient continues to be on oxygen it does not normally wear this in the outpatient setting. Wean FiO2 as tolerated. Repeat CBC shows a hemoglobin 7.1 today and blast cells are increased up to 9 and discussed with oncology team with plans for possible bone marrow biopsy on Thursday. 01/31/2023 Patient is seen and evaluated in follow-up and hemoglobin was 6.9 today and awaiting to receive 2 units of blood with hematology following closely. General surgery following as well and has placed the patient on TPN and has received a PICC line. Electrolytes were replaced in magnesium above 2 and potassium 3.5. Patient's blood pressure on the lower side most likely multifactorial with pain medications and low blood count will add midodrine. Kidney functions worsened along with patient's sodium becoming hyponatremic although difficult to give IV fluids as patient overload easily. Will consult nephrology and appreciate input and recommendations. Patient is afebrile with no reports of nausea or vomiting noted. No reported chest pain or worsening shortness of breath at this time. Patient needs increased activity as tolerated and sitting up in the chair more often. Would recommend PT/OT therapy daily. 02/01/2023 Patient is seen in follow-up today reports she is not feeling well and per nursing staff has been having fevers overnight and continued on antibiotics for diverticulitis with surgery following. Hematology/oncology following as well and planning for possible bone marrow biopsy tomorrow. Patient is continued on TPN and has PICC line continues with indwelling Fermin catheter. Patient is reporting diarrhea and abdominal distention with pain. Infectious disease consulted and pending. Blood sugars have been elevated and was continued on sliding scale and will continue and add long-acting as well. No reports of chest pain or palpitations noted. Patient is wearing oxygen does not normally wear oxygen outpatient. Patient continues with generalized weakness and is continued on clear liquids. 02/02/2023 Patient seen and evaluated in follow-up with multiple medical consultations following. Blast cells remain elevated and hemoglobin currently stable after transfusion. Patient scheduled for bone marrow biopsy in the a.m. Patient also continues on TPN with general surgery following recommending to continue along with IV antibiotics. Infectious disease has been consulted and antibiotics being adjusted as patient had continued fevers and elevated white count. Pro- calcitonin is elevated and will continue. Patient is having elevated blood sugars and have adjusted long-acting and will continue sliding scale and m onitoring closely. Patient is requiring more oxygen demand currently at 5 L and normally does not wear any oxygen. Chest x-ray ordered pending. 02/03/2023 Patient is seen and evaluated in follow-up today with multiple medical consultations following. Overall prognosis remains guarded as patient has multiple comorbidities and medical issues ongoing. Patient currently remains on TPN for poor oral intake and recommend monitoring electrolytes closely replacing per protocol. Patient hemoglobin improved with no active bleeding noted. Patient continues with abdominal pain as well as some shortness of breath and white count remains elevated patient is having fevers. Chest x-ray suggestive of some volume overload and will continue dose of Lasix. Patient underwent bone marrow biopsy with oncology today. Blood sugars remain uncontrolled and will add pre-meal insulins as well as continue long-acting and sliding scale, possibly consider insulin drip. 02/04/2023 Patient is seen and evaluated in follow-up this morning reports she feels somewhat improved although continues to require high flow oxygen and also using BiPAP with pulmonary following. Chest x-ray this morning is suggestive of pulmonary edema and pleural fluid which is the same or slightly worse than previous could be CHF and was given doses of Lasix with improvement. Patient being started on IV Lasix twice daily with nephrology following closely. Hemoglobin is stable at 7.7 and white count is 8.6, blast cells are 6 and oncology following and has underwent bone marrow biopsy which is pending. Kidney functions are stable in magnesium found to be 1.6 and will replace per protocol. Patient continues on TPN and continues to have multiple electrolyte abnormalities at times. Patient also extremely hyperglycemic and will attempt increasing the long-acting with increasing the pre-meal as well as continuing sliding scale and may require an insulin drip. Patient is also continued on IV antibiotics with infectious disease following closely and per medical record patient has been refusing aztreonam and unsure why. Recommend wean FiO2 as tolerated and encouraged increase activity as tolerated 02/05/2023 Patient is seen and evaluated in follow-up this morning currently sitting up at the side of the bed continues to report shortness of breath although feels is improved. Patient is using BiPAP on occasion and currently maintained on 15 L high flow. Patient is maintained on IV Lasix with nephrology following closely. Multiple medical consultations following including general surgery recommending to continue TPN for abdominal pain and poor oral intake. Would recommend decreasing the rate and amount of fluid from TPN and have discussed this with pharmacy along with dietary adjustments are being made. Patient's blood sugars are elevated although more controlled on current regimen and will continue. Hemoglobin found to be 6.9 this morning and will give a unit of PRBC and recommend follow-up labs. Patient is receiving DuoNeb treatments and would recommend follow-up chest x-ray in the a.m. Overall prognosis remains guarded. 02/06/2023 Patient is seen in follow-up today continued on BiPAP currently had increased respiratory distress requiring an a team last night and maintained on BiPAP and refusing to take it off she is having increasing shortness of breath. Patient is now continued on IV Lasix and TPN being discontinued. Patient is refusing all medications at this time and discuss with nursing staff about encouraging oral intake. Was notified from pharmacy they are out of TPN and okay to discontinue per surgery. Blood sugars improved although patient is not eating and will continue to monitor closely. Patient hemoglobin above 7 and WBC is patient is continued on antibiotics with ID following and has also been started on vancomycin in addition. Pro-calcitonin is elevated. Overall prognosis remains extremely guarded. Review of systems: Constitutional: reports of fatigue, reports not feeling well Cardiovascular: No reports of chest pain or palpitations Respiratory: reports of worsening shortness of breath GI: No reports of nausea, vomiting, or diarrhea, reports decreased abdominal pain : No reports of dysuria or retention Neurovascular: reports of generalized weakness All medications have been reviewed Active Medications Acetaminophen (Acetaminophen Tab 325 Mg Tab) 650 mg PO Q6HR PRN PRN Reason: Fever and/ or Mild Pain Last Admin: 02/05/23 03:44 Dose: 650 mg Hydrocodone Bitart/Acetaminophen (Hydrocodone/Apap 5-325mg 1 Each Tab) 1 each PO Q6HR PRN PRN Reason: Pain Last Admin: 02/06/23 21:08 Dose: 1 each Albuterol/Ipratropium (Ipratropium-Albuterol 3 Ml Neb) 3 ml INHALATION RT-QID ALIYAH Last Admin: 02/06/23 19:49 Dose: 3 ml Albuterol/Ipratropium (Ipratropium-Albuterol 3 Ml Neb) 3 ml INHALATION RT-Q2H PRN PRN Reason: Shortness Of Breath Or Wheezing Atorvastatin Calcium (Atorvastatin 40 Mg Tab) 40 mg PO HS [facility] Last Admin: 02/06/23 20:53 Dose: 40 mg Baclofen (Baclofen 10 Mg Tab) 10 mg PO HS [facility] Last Admin: 02/06/23 20:53 Dose: 10 mg Budesonide (Budesonide 1 Mg/2 Ml Nebu) 1 mg INHALATION RT-BID ALIYAH Last Admin: 02/06/23 19:48 Dose: 1 mg Dextrose/Water (Dextrose 50% Syringe 50 Ml) 25 ml IVP PER PROTOCOL PRN; Protocol PRN Reason: Hypoglycemia Last Admin: 02/06/23 17:11 Dose: 25 ml Dextrose/Water (Dextrose 50% Syringe 50 Ml) 50 ml IVP PER PROTOCOL PRN; Protocol PRN Reason: Hypoglycemia Ferrous Sulfate (Ferrous Sulfate 325 Mg Tab) 325 mg PO BID-W/MEALS [facility] Last Admin: 02/06/23 17:10 Dose: 325 mg Fluticasone Propionate (Fluticasone 50mcg/[place] Nasal 16gm) 2 spray EA NOSTRIL DAILY PRN PRN Reason: allergies Last Admin: 01/28/23 16:26 Dose: 2 spray Formoterol Fumarate (Formoterol Fumarate 20 Mcg/2 Ml Nebu) 20 mcg INHALATION RT-BID [facility] Last Admin: 02/06/23 19:48 Dose: 20 mcg Furosemide (Furosemide 10 Mg/Ml 4 Ml Vial) 40 mg IV TID [facility] Last Admin: 02/06/23 21:08 Dose: 40 mg Heparin Sodium (Porcine) (Heparin Sodium,Porcine/Pf 5,000 Unit/0.5 Ml Syringe) 5,000 unit SQ Q12HR [facility] Last Admin: 02/06/23 20:53 Dose: 5,000 unit Hydromorphone HCl (Hydromorphone 1 Mg/Ml 1 Ml Syringe) 1 mg IVP Q3H PRN PRN Reason: Moderate to Severe Pain (4-10) Last Admin: 02/06/23 05:01 Dose: 1 mg Aztreonam 2 gm/ Sodium (Chloride) 100 mls @ 33.3 mls/hr IVPB Q8H ALIYAH; Protocol Last Admin: 02/06/23 17:11 Dose: 33.3 mls/hr Lactated Ringer's (Lactated Ringers) 1,000 mls @ 20 mls/hr IV .Q24H [facility] Last Admin: 02/06/23 17:13 Dose: Not Given Vancomycin HCl 1,500 mg/ (Sodium Chloride) 500 mls @ 167 mls/hr IVPB Q12H [facility] Last Admin: 02/06/23 12:24 Dose: 167 mls/hr Insulin Aspart (Insulin Aspart (Novolog) 100 Unit/Ml Vial) 0 unit SQ Q6HR [facility]; Protocol Last Admin: 02/06/23 17:13 Dose: Not Given Insulin Aspart (Insulin Aspart (Novolog) 100 Unit/Ml Vial) 15 unit SQ AC-TID [facility] Last Admin: 02/06/23 17:07 Dose: Not Given Insulin Detemir (Insulin Detemir (Levemir) 100 Unit/Ml Syr) 35 unit SQ BID@0700,2100 [facility] Last Admin: 02/06/23 20:53 Dose: 35 unit Lidocaine HCl (Lidocaine 1% (10mg/Ml) For Iv Start) 0.1 ml INTRADERMA PER PROTOCOL PRN PRN Reason: IV Start Metoprolol Tartrate (Metoprolol Tartrate 25 Mg Tab) 25 mg PO BID [facility] Last Admin: 02/06/23 20:53 Dose: 25 mg Midodrine (Midodrine 5 Mg Tab) 5 mg PO AC-TID PRN PRN Reason: Hypotension Last Admin: 02/03/23 12:30 Dose: 5 mg Miscellaneous Information (Potassium Replacement Protocol 1 Each Misc) 1 each MISCELLANE DAILY PRN; Protocol PRN Reason: Per Protocol Miscellaneous Information (Magnesium Replacement Protocol 1 Each Misc) 1 each MISCELLANE DAILY PRN; Protocol PRN Reason: Per Protocol Naloxone HCl (Naloxone 0.4 Mg/Ml 1 Ml Vial) 0.2 mg IV Q2M PRN PRN Reason: Opioid Reversal Ondansetron HCl (Ondansetron 4 Mg/2 Ml Vial) 4 mg IVP Q6HR PRN PRN Reason: Nausea And Vomiting Last Admin: 01/30/23 19:49 Dose: 4 mg Pantoprazole Sodium (Pantoprazole 40 Mg/10 Ml Vial) 40 mg IVP BID [facility] Last Admin: 02/06/23 20:53 Dose: 40 mg Promethazine HCl (Promethazine 25 Mg Tab) 25 mg PO Q6HR PRN PRN Reason: Nausea Last Admin: 01/27/23 13:51 Dose: 25 mg Sertraline HCl (Sertraline 50 Mg Tab) 50 mg PO DAILY [facility] Last Admin: 02/06/23 08:55 Dose: 50 mg Simethicone (Simethicone 80 Mg Chewable) 80 mg PO QID [facility] Last Admin: 02/06/23 21:05 Dose: Not Given Physical exam: GENERAL: The patient is alert and oriented x3, Well developed, well nourished. Obese, elderly and ill-appearing, now maintained on BiPAP continuous HEENT: Pupils are round and equally reacting to light. EOMI. No scleral icterus. No conjunctival pallor. Normocephalic, atraumatic. No pharyngeal erythema. No thyromegaly. CARDIOVASCULAR: S1 and S2 muffled PULMONARY: Diminished breath sounds bilaterally with some scattered rhonchi and crackles noted ABDOMEN: Soft, obese, lower abdominal tenderness with some bloating, nondistended, normoactive bowel sounds. No palpable organomegaly. MUSCULOSKELETAL: No joint swelling or deformity. EXTREMITIES: No cyanosis, clubbing, or pedal edema. NEUROLOGICAL: Gross neurological examination did not reveal any focal deficits. Diffusely weak SKIN: No rashes. no petechiae. Assessment: Acute anemia, mostly acute blood loss anemia, associated with abdominal pain and sigmoid diverticulitis Acute hypoxemic respiratory failure, possibly secondary to volume overload, now requiring BiPAP Diverticular disease as noted on colonoscopy Sigmoid diverticulitis Acute kidney injury, multifactorial possibly secondary to hypotension as well as poor oral intake, improving Severe protein calorie malnutrition secondary to above History of chronic Anemia, iron deficiency Elevated blast cells, currently 5%, possibly secondary to previous chemotherapy or due to recent GI bleeding, bone marrow biopsy on 02/03/2023 Atrial Fibrillation, on Eliquis (ON HOLD) status post Permanent Pacemaker history of anterior abdominal wall fluid collection could be related to seroma Coronary Artery Disease history, status post stent Obesity with BMI of 30.5 COPD, not in exacerbation CVA/TIA history with left foot drop Diabetes Mellitus, uncontrolled with hyperglycemia GERD/Reflux Hyperlipidemia Hypertension Sleep Apnea/CPAP/BIPAP Diabetic neuropathy bilateral legs/feet History of colon cancer with revision/colostomy since reversed and chemo/radiation History of PVD Full code Plan: Recommend continue with antibiotics in the form of now vancomycin and Aztreonam with infectious disease following. Procalcitonin is elevated. Blood cultures thus far remain negative and sputum culture was sent and pending. WBC has improved and patient is afebrile recommend incentive spirometer at least 10 times every hour while awake and increased activity as tolerated Recommend to continue weaning FiO2 as tolerated currently on BiPAP continuously with pulmonary following Gen. surgery following this patient is status post endoscopy with no active bleeding noted likely diverticular, TPN being discontinued his pharmacy is out of and okay per surgery to [place] Blood sugars improved although patient is not eating and we'll continue sliding scale, long-acting insulin and recommend monitor Accu-Cheks closely for hypoglycemia Recommend consistent carb diabetic diet Oncology following patient underwent bone marrow biopsy on 02/03/2023 Recommend follow-up labs in a.m. with a chest x-ray Recommend continue holding eliquis at this time with concerns for possible GI bleed, patient was started on subcu heparin by cardiology recommend increased activity as tolerated Due to multiple complex medical issues, prognosis is extremely guarded The impression and plan of care has been dictated by Mindy Saleh, Nurse Practitioner as directed. Dr. Yury MD I have performed a history and examination and MDM of this patient, discussed the same with the dictator, and agree with the dictator's assessment and plan as written ,documented as a scribe. Based on total visit time, I have performed more than 50% of the visit. Objective - Vital Signs Vital signs: Vital Signs Temp 98.6 F 02/06/23 20:00 Pulse 99 02/06/23 20:15 Resp 36 H 02/06/23 20:00 BP 123/57 02/06/23 20:00 Pulse Ox 92 L 02/06/23 20:00 FiO2 70 02/06/23 20:00 Intake & Output 02/06/23 02/06/23 02/07/23 06:59 18:59 06:59 Intake Total 1130 240 Output Total 1000 500 Balance 130 -260 Weight 85.729 kg Intake: Intake, IV Titration 770 Amount Mvi, Adult No.4 with Vit 340 K 10 ml Trace (Conc-1Ml/ Dose) 1 ml Sodium Acetate 56 meq Potassium Chloride 34 meq Magnesium Sulfate gm 1.5 gm Calcium Gluconate 1 gm Sodium Phosphate 9 mmol In Amino Acids 5 %/ Dextrose 20 % 1,000 ml @ 60 mls/hr IV .BY DURATION ALIYAH Rx#:[id number] Vancomycin 1,500 mg In 330 Sodium Chloride 0.9% 500 ml 500 ml @ 167 mls/hr IVPB Q12H ALIYAH Rx#: [id number] metroNIDAZOLE-NS PMX 500 100 mg In Saline 1 100ml.bag @ 100 mls/hr IVPB Q8HR ALIYAH Rx#:[id number] Oral 50 240 Blood Product 310 Rc As-1 Unit 310 [id number] Output: Urine 1000 500 Other: Voiding Method Indwelling Catheter Indwelling Catheter # Bowel Movements 1 - Labs CBC & Chem 7: 02/06/23 06:21 02/06/23 06:21 Labs: Abnormal Lab Results - Last 24 Hours (Table) 02/05/23 02/06/23 02/06/23 Range/Units 12:34 01:32 06:15 RBC 3.08 L (3.80-5.40) m/uL Hgb 7.9 L (11.4-16.0) gm/dL Hct 24.7 L (34.0-46.0) % MCHC (31.0-37.0) g/dL RDW 23.9 H (11.5-15.5) % Plt Count 79 L (150-450) k/uL Blast Cells % % Lymphocytes # (Manual) (1.0-4.8) k/uL Blast Cells # (Man) (0) k/uL Carbon Dioxide (22-30) mmol/L BUN (7-17) mg/dL Glucose (74-99) mg/dL POC Glucose (mg/dL) 202 H (70-110) mg/dL Calcium (8.4-10.2) mg/dL Phosphorus (2.5-4.5) mg/dL Procalcitonin (0.02-0.09) ng/mL Crossmatch See Detail 02/06/23 02/06/23 02/06/23 Range/Units 06:21 06:21 06:21 RBC 3.01 L (3.80-5.40) m/uL Hgb 7.5 L (11.4-16.0) gm/dL Hct 24.5 L (34.0-46.0) % MCHC 30.7 L (31.0-37.0) g/dL RDW 24.2 H (11.5-15.5) % Plt Count 79 L (150-450) k/uL Blast Cells % 1 H* % Lymphocytes # (Manual) 0.49 L (1.0-4.8) k/uL Blast Cells # (Man) 0.08 H (0) k/uL Carbon Dioxide 21 L (22-30) mmol/L BUN 46 H (7-17) mg/dL Glucose 169 H (74-99) mg/dL POC Glucose (mg/dL) (70-110) mg/dL Calcium 6.9 L (8.4-10.2) mg/dL Phosphorus 5.7 H (2.5-4.5) mg/dL Procalcitonin (0.02-0.09) ng/mL Crossmatch 02/06/23 02/06/23 02/06/23 Range/Units 10:14 12:19 17:06 RBC (3.80-5.40) m/uL Hgb (11.4-16.0) gm/dL Hct (34.0-46.0) % MCHC (31.0-37.0) g/dL RDW (11.5-15.5) % Plt Count (150-450) k/uL Blast Cells % % Lymphocytes # (Manual) (1.0-4.8) k/uL Blast Cells # (Man) (0) k/uL Carbon Dioxide (22-30) mmol/L BUN (7-17) mg/dL Glucose (74-99) mg/dL POC Glucose (mg/dL) 130 H 63 L (70-110) mg/dL Calcium (8.4-10.2) mg/dL Phosphorus (2.5-4.5) mg/dL Procalcitonin 2.86 H (0.02-0.09) ng/mL Crossmatch 02/06/23 02/06/23 02/06/23 Range/Units 17:31 18:17 20:13 RBC (3.80-5.40) m/uL Hgb (11.4-16.0) gm/dL Hct (34.0-46.0) % MCHC (31.0-37.0) g/dL RDW (11.5-15.5) % Plt Count (150-450) k/uL Blast Cells % % Lymphocytes # (Manual) (1.0-4.8) k/uL Blast Cells # (Man) (0) k/uL Carbon Dioxide (22-30) mmol/L BUN (7-17) mg/dL Glucose (74-99) mg/dL POC Glucose (mg/dL) 129 H 133 H 134 H (70-110) mg/dL Calcium (8.4-10.2) mg/dL Phosphorus (2.5-4.5) mg/dL Procalcitonin (0.02-0.09) ng/mL Crossmatch Microbiology - Last 24 Hours (Table) 02/01/23 11:32 Blood Culture - Preliminary Blood No Growth after 120 hours
[2023-02-07 00:12] LABS: Glucose,Whole Blood 81 mg/dL (70-110)
[2023-02-07] MEDS: INSULIN ASPART (NovoLOG) 100 UNIT/ML VIAL SQ SCH ×6 (00:32→19:55)
[2023-02-07] MEDS: VANCOMYCIN 1,500 MG in SODIUM CHLORIDE 0.9% 500 ML 500 ML IVPB SCH ×3 (00:33→23:28)
[2023-02-07 01:45] LABS: Glucose,Whole Blood 62 mg/dL (70-110)
[2023-02-07] MEDS: DEXTROSE 50% SYRINGE 50 ML IVP PRN ×3 (01:48→14:12)
[2023-02-07] MEDS: AZTREONAM 2 GM in SODIUM CHLORIDE 0.9% 100 ML IVPB SCH ×3 (01:55→18:06)
[2023-02-07 02:06] LABS: Glucose,Whole Blood 170 mg/dL (70-110)
[2023-02-07] MEDS: HYDROmorphone 1 MG/ML 1 ML SYRINGE IVP PRN (02:35)
[2023-02-07] MEDS ORDERED: FUROSEMIDE 10 MG/ML 4 ML VIAL IV STA (03:43)
[2023-02-07 03:56] LABS: Glucose,Whole Blood 100 mg/dL (70-110)
[2023-02-07 06:22] LABS: Glucose,Whole Blood 65 mg/dL (70-110)
[2023-02-07 06:57] LABS: Glucose,Whole Blood 100 mg/dL (70-110)
[2023-02-07] MEDS: IPRATROPIUM-ALBUTEROL 3 ML NEB INHALATION SCH ×4 (07:33→20:04)
[2023-02-07] MEDS: FORMOTEROL FUMARATE 20 MCG/2 ML NEBU INHALATION SCH ×2 (07:33→20:04)
[2023-02-07] MEDS: BUDESONIDE 1 MG/2 ML NEBU INHALATION SCH ×2 (07:33→20:04)
[2023-02-07 07:47] LABS: Anisocytosis Marked; HCT 26.7 % (34.0-46.0); Hypochromasia Moderate; MCH 24.6 pg (25.0-35.0); MCHC 30.1 g/dL (31.0-37.0); MCV 81.9 fL (80.0-100.0); Mean Platelet Volume 8.4; Microcytosis Moderate; Poikilocytosis Slight; RBC 3.27 m/uL (3.80-5.40); RDW 24.3 % (11.5-15.5)
[2023-02-07 08:02] LABS: Platelet Count 73 k/uL (150-450)
[2023-02-07 08:18] LABS: Calcium 6.8 mg/dL (8.4-10.2); Magnesium 1.9 mg/dL (1.6-2.3); Potassium 3.9 mmol/L (3.5-5.1)
--- NOTE | 2023-02-07 08:50 | XR ---
EXAMINATION TYPE: XR chest 1V DATE OF EXAM: 02/07/2023 COMPARISON: 02/06/2023 INDICATION: Short of breath TECHNIQUE: Single frontal view of the chest is obtained. FINDINGS: The heart size is normal. The pulmonary vasculature is normal. Perihilar infiltrates are present. Lower lobe infiltrates and small effusions are present. Findings a re worsening over the interval. IMPRESSION: 1. Perihilar and lower lobe infiltrates. Correlate for pneumonia and atypical pulmonary edema. 2. Small bilateral pleural effusions
[2023-02-07] MEDS: METOPROLOL TARTRATE 25 MG TAB PO SCH ×2 (09:15→22:36)
[2023-02-07] MEDS: FERROUS SULFATE 325 MG TAB PO SCH ×2 (09:15→16:58)
[2023-02-07] MEDS: HEPARIN SODIUM,PORCINE/PF 5,000 UNIT/0.5 ML SYRINGE SQ SCH ×2 (09:15→22:35)
[2023-02-07] MEDS: SERTRALINE 50 MG TAB PO SCH (09:15)
[2023-02-07] MEDS: PANTOPRAZOLE 40 MG/10 ML VIAL IVP SCH ×2 (09:15→21:42)
[2023-02-07] MEDS: FUROSEMIDE 10 MG/ML 4 ML VIAL IV SCH ×3 (09:15→22:45)
[2023-02-07] MEDS: SIMETHICONE 80 MG CHEWABLE PO SCH ×5 (09:16→19:57)
[2023-02-07] MEDS: INSULIN DETEMIR (LEVEMIR) 100 UNIT/ML SYR SQ SCH (09:43)
[2023-02-07 10:21] LABS: Band Neutrophils % 1 %; Eosinophils # (M) 0.24 k/uL (0-0.7); Monocytes # (M) 0.24 k/uL (0-1.0); Neutrophils % (M) 85 %
[2023-02-07 10:22] LABS: Blast Cells # (M) 0.12 k/uL (0); Nucleated Red Blood Cells 0 /100 WBC (0-0); Total Cells Counted 200
[2023-02-07 10:23] LABS: RBC Fragments Present
--- NOTE | 2023-02-07 11:26 | P.PN ---
Subjective Progress Note Date: 02/07/23 Principal diagnosis: GI blood Patient seen this morning shortly after being evaluated by pulmonary. Her respiratory status has worsened. Consideration for transfer to ICU. She does have some blood in her mouth this morning unclear if this is related to epistaxis or other etiology. Hemoglobin 8.0. Recent GI workup noted. Objective - Vital Signs Vital signs: Vital Signs Temp 97.8 F 02/07/23 08:00 Pulse 112 H 02/07/23 11:07 Resp 24 02/07/23 08:00 BP 117/56 02/07/23 08:00 Pulse Ox 95 02/07/23 08:00 FiO2 80 02/07/23 11:07 Intake & Output 02/06/23 02/07/23 02/07/23 18:59 06:59 18:59 Intake Total 240 300 118 Output Total 500 300 Balance -260 300 -182 Weight 85.729 kg Intake: Intake, IV Titration 300 Amount Dextrose 10% in Water 1, 300 000 ml @ 60 mls/hr IV . [id number] [facility] Rx#:[id number] Oral 240 118 Output: Urine 500 300 Other: Voiding Method Indwelling Catheter Indwelling Catheter Indwelling Catheter # Voids 1 # Bowel Movements 1 - Exam Abdomen: Soft, nontender, nondistended - Labs CBC & Chem 7: 02/07/23 07:29 02/07/23 07:29 Labs: Abnormal Lab Results - Last 24 Hours (Table) 02/06/23 02/06/23 02/06/23 Range/Units 06:21 10:14 12:19 RBC (3.80-5.40) m/uL Hgb (11.4-16.0) gm/dL Hct (34.0-46.0) % MCH (25.0-35.0) pg MCHC (31.0-37.0) g/dL RDW (11.5-15.5) % Plt Count 79 L (150-450) k/uL Blast Cells % 1 H* % Lymphocytes # (Manual) 0.49 L (1.0-4.8) k/uL Blast Cells # (Man) 0.08 H (0) k/uL Carbon Dioxide (22-30) mmol/L BUN (7-17) mg/dL Glucose (74-99) mg/dL POC Glucose (mg/dL) 130 H (70-110) mg/dL Calcium (8.4-10.2) mg/dL Procalcitonin 2.86 H (0.02-0.09) ng/mL 02/06/23 02/06/23 02/06/23 Range/Units 17:06 17:31 18:17 RBC (3.80-5.40) m/uL Hgb (11.4-16.0) gm/dL Hct (34.0-46.0) % MCH (25.0-35.0) pg MCHC (31.0-37.0) g/dL RDW (11.5-15.5) % Plt Count (150-450) k/uL Blast Cells % % Lymphocytes # (Manual) (1.0-4.8) k/uL Blast Cells # (Man) (0) k/uL Carbon Dioxide (22-30) mmol/L BUN (7-17) mg/dL Glucose (74-99) mg/dL POC Glucose (mg/dL) 63 L 129 H 133 H (70-110) mg/dL Calcium (8.4-10.2) mg/dL Procalcitonin (0.02-0.09) ng/mL 02/06/23 02/07/23 02/07/23 Range/Units 20:13 01:44 02:05 RBC (3.80-5.40) m/uL Hgb (11.4-16.0) gm/dL Hct (34.0-46.0) % MCH (25.0-35.0) pg MCHC (31.0-37.0) g/dL RDW (11.5-15.5) % Plt Count (150-450) k/uL Blast Cells % % Lymphocytes # (Manual) (1.0-4.8) k/uL Blast Cells # (Man) (0) k/uL Carbon Dioxide (22-30) mmol/L BUN (7-17) mg/dL Glucose (74-99) mg/dL POC Glucose (mg/dL) 134 H 62 L 170 H (70-110) mg/dL Calcium (8.4-10.2) mg/dL Procalcitonin (0.02-0.09) ng/mL 02/07/23 02/07/23 02/07/23 Range/Units 06:20 07:29 07:29 RBC 3.27 L (3.80-5.40) m/uL Hgb 8.0 L (11.4-16.0) gm/dL Hct 26.7 L (34.0-46.0) % MCH 24.6 L (25.0-35.0) pg MCHC 30.1 L (31.0-37.0) g/dL RDW 24.3 H (11.5-15.5) % Plt Count 73 L (150-450) k/uL Blast Cells % 2 H* % Lymphocytes # (Manual) 0.30 L (1.0-4.8) k/uL Blast Cells # (Man) 0.12 H (0) k/uL Carbon Dioxide 20 L (22-30) mmol/L BUN 56 H (7-17) mg/dL Glucose 70 L (74-99) mg/dL POC Glucose (mg/dL) 65 L (70-110) mg/dL Calcium 6.8 L (8.4-10.2) mg/dL Procalcitonin (0.02-0.09) ng/mL Microbiology - Last 24 Hours (Table) 02/01/23 11:32 Blood Culture - Preliminary Blood No Growth after 120 hours Assessment and Plan (1) Rectal bleeding Narrative/Plan: 72-year-old female with recent GI bleed. Etiology thought to be related to diverticulosis. Underwent colonoscopy. Currently has some blood in the oropharynx. Likely related to the high flow oxygen. Unfortunately the patient's respiratory status has worsened and may require ICU care. We'll follow. Current Visit: Yes Status: Acute Priority: High Code(s): K62.5 - HEMORRHAGE OF ANUS AND RECTUM SNOMED Code(s): 83119206
[2023-02-07 11:37] LABS: Glucose,Whole Blood 45 mg/dL (70-110)
[2023-02-07 11:37] LABS: Glucose,Whole Blood 46 mg/dL (70-110)
--- NOTE | 2023-02-07 11:37 | P.PN ---
Subjective Progress Note Date: 02/07/23 Principal diagnosis: Shortness of breath, low saturations. Pulmonary consult dated 02/03/2023. A 72-year-old female who was seen initially in the emergency department on January 22, complaining of rectal bleeding. The patient recently had an EGD and colonoscopy, prior to her admission, about 3 weeks prior. The patient was asked to come to the emergency department, by her surgeon, for her new onset rectal bleeding. The patient does have a history of atrial fibrillation for which she takes a blood thinner. She apparently denied other complaints, although today when I talked her, she states that she's had shortness of breath all along. It has gotten worse so. We will asked to see her, for a new abnormality on chest x-ray, as well as increasing oxygen requirements. On January 22, the patient have a colonoscopy, which did not reveal any active GI bleeding. A chest x-ray on January 28 showed small bilateral pleural effusions. The x-ray on February 02 showed evidence of focal airspace disease involving the left midlung. This was a new finding. Currently, the patient's on 6 L of oxygen, with a saturation of 94%. She is mildly febrile with temperature 100.1F. Heart rate 92 bpm. Respiratory rate 22, and blood pressure 90/50. White count 14.1, hemoglobin 9.4, hematocrit 30.4, and platelet count 224,000. Sodium 135, potassium 4.5, chlorides 102, CO2 24, BUN 29, and creatinine 0.71. Albumin is 2.6. N-terminal proBNP is elevated at 11,000. Blood and sputum sampling is negative. The patient is on Flagyl and vancomycin and aztreonam as per infectious diseases. Progress note dated 02/04/2023. 72-year-old female seen for the first time, yesterday in consultation. His been here in the hospital for nearly 2 weeks, and we're only consulted yesterday. Anyway, we are consulted because of increasing oxygen requirements. Last night, the patient was on BiPAP. Settings included 12/5 and 80%. She's getting TPN at 65 mL an hour, and saline at 10 mL an hour. She was given some diuretic by my nurse practitioner. She's currently on 15 L high flow oxygen. She states that she is feeling better. Currently labs include a white count of 8.6, hemoglobin 7.7, hematocrit 24.4, and platelet count of 99,000. Sodium 135, potassium 4, chlorides 105, CO2 21, anion gap 9, BUN 34, and creatinine 0.8. Albumin is 2. Chest x-ray suggests some pulmonary edema, which is slightly worse compared to the prior evaluation. There is some clearing of consolidation in the left pulmonary hilar area. The most recent N-terminal proBNP is 11,000. Progress note dated 02/05/2023. 72-year-old female seen again in room 383. The patient was seen in consultation 2 days ago. Please see my note above. Currently, the patient is on 15 L high flow oxygen. Clinically though, she feels better. Her chest x-ray shows evidence of CHF. She is not receiving any IV fluids. White count 7.7, hemoglobin 6.7, hematocrit 21.4, and platelet count 94,000. Sodium 134, potassium 3.9, chlorides 104, CO2 22, BUN 42, creatinine 0.75. Albumin is 1.8. The chest x-ray from February 04 has been previously evaluated. Progress note dated 02/06/2023. 72-year-old female seen again today in room 383. The patient was seen in consultation 3 days ago. Currently, the patient is on BiPAP, with settings of 12/5 and 70%. She's getting TPN as well. The patient's all overall condition has remained about the same, or slightly worse. Yesterday, she was on 15 L high flow oxygen. Today she's currently on BiPAP. I did have the nurse give the patient some additional diuretic yesterday. White count 8.1, hemoglobin 7.5, hematocrit 24.5, and platelet count 79,000. Sodium 137, potassium 3.9, chlorides 106, CO2 21, anion gap normal, BUN 46, with a creatinine 0.82. N- terminal proBNP is elevated at 6950. Microbiologic sampling has been negative thus far. Chest x-ray shows evidence of fluid overload/pulmonary edema, bilateral pleural effusions. Progress note dated 02/07/2023. 72-year-old female seen today in room 383. The patient is currently now BiPAP, with settings of 12/5 and 80%. She's receiving vancomycin and aztreonam. Chest x-rays consistent with either fluid overload/CHF, pneumonia. Because of her worsening respiratory status, I've chosen to move the patient down to the intensive care unit. White count 6, hemoglobin 8, hematocrit 26.7, and platelet count 73,000. Sodium 137, potassium 3.9, chlorides 106, CO2 20, BUN 56, and creatinine 0.99. The patient had a bone marrow biopsy on February 03. The results are pending. Blood and sputum samples are negative. Chest x-ray shows bilateral small effusions, and either pneumonia, or atypical pulmonary edema. Objective - Vital Signs Vital signs: Vital Signs Temp 97.8 F 02/07/23 08:00 Pulse 112 H 02/07/23 11:07 Resp 24 02/07/23 08:00 BP 117/56 02/07/23 08:00 Pulse Ox 95 02/07/23 08:00 FiO2 80 02/07/23 11:07 Intake & Output 02/06/23 02/07/23 02/07/23 18:59 06:59 18:59 Intake Total 240 300 118 Output Total 500 300 Balance -260 300 -182 Weight 85.729 kg Intake: Intake, IV Titration 300 Amount Dextrose 10% in Water 1, 300 000 ml @ 60 mls/hr IV . [id number] [facility] Rx#:[id number] Oral 240 118 Output: Urine 500 300 Other: Voiding Method Indwelling Catheter Indwelling Catheter Indwelling Catheter # Voids 1 # Bowel Movements 1 - Exam No acute distress, oriented 3. Currently on BiPAP. HEENT examination is grossly unremarkable. Neck supple. Full range of motion. No adenopathy thyromegaly or neck vein distention. Cardiovascular examination reveals regular rhythm rate. S1-S2 normal. No S3 or S4. No discernible murmur noted. Heart sounds are distant. Heart rate 90 bpm. Lungs reveal scattered bilateral rhonchi, and crackles. Breath sounds equal. No wheezes. Saturations are 94 % on BiPAP. Abdomen obese, but soft. Extremities are intact. No cyanosis or clubbing. Mild edema noted. Skin is without rash or lesion. Neurologic examination is brief but nonfocal. - Labs CBC & Chem 7: 02/07/23 07:29 02/07/23 07:29 Labs: Abnormal Lab Results - Last 24 Hours (Table) 02/06/23 02/06/2302/06/23 Range/Units 06:21 10:14 12:19 RBC (3.80-5.40) m/uL Hgb (11.4-16.0) gm/dL Hct (34.0-46.0) % MCH (25.0-35.0) pg MCHC (31.0-37.0) g/dL RDW (11.5-15.5) % Plt Count 79 L (150-450) k/uL Blast Cells % 1 H* % Lymphocytes # (Manual) 0.49 L (1.0-4.8) k/uL Blast Cells # (Man) 0.08 H (0) k/uL Carbon Dioxide (22-30) mmol/L BUN (7-17) mg/dL Glucose (74-99) mg/dL POC Glucose (mg/dL) 130 H (70-110) mg/dL Calcium (8.4-10.2) mg/dL Procalcitonin 2.86 H (0.02-0.09) ng/mL 02/06/23 02/06/23 02/06/23 Range/Units 17:06 17:31 18:17 RBC (3.80-5.40) m/uL Hgb (11.4-16.0) gm/dL Hct (34.0-46.0) % MCH (25.0-35.0) pg MCHC (31.0-37.0) g/dL RDW (11.5-15.5) % Plt Count (150-450) k/uL Blast Cells % % Lymphocytes # (Manual) (1.0-4.8) k/uL Blast Cells # (Man) (0) k/uL Carbon Dioxide (22-30) mmol/L BUN (7-17) mg/dL Glucose (74-99) mg/dL POC Glucose (mg/dL) 63 L 129 H 133 H (70-110) mg/dL Calcium (8.4-10.2) mg/dL Procalcitonin (0.02-0.09) ng/mL 02/06/23 02/07/23 02/07/23 Range/Units 20:13 01:44 02:05 RBC (3.80-5.40) m/uL Hgb (11.4-16.0) gm/dL Hct (34.0-46.0) % MCH (25.0-35.0) pg MCHC (31.0-37.0) g/dL RDW (11.5-15.5) % Plt Count (150-450) k/uL Blast Cells % % Lymphocytes # (Manual) (1.0-4.8) k/uL Blast Cells # (Man) (0) k/uL Carbon Dioxide (22-30) mmol/L BUN (7-17) mg/dL Glucose (74-99) mg/dL POC Glucose (mg/dL) 134 H 62 L 170 H (70-110) mg/dL Calcium (8.4-10.2) mg/dL Procalcitonin (0.02-0.09) ng/mL 02/07/23 02/07/23 02/07/23 Range/Units 06:20 07:29 07:29 RBC 3.27 L (3.80-5.40) m/uL Hgb 8.0 L (11.4-16.0) gm/dL Hct 26.7 L (34.0-46.0) % MCH 24.6 L (25.0-35.0) pg MCHC 30.1 L (31.0-37.0) g/dL RDW 24.3 H (11.5-15.5) % Plt Count 73 L (150-450) k/uL Blast Cells % 2 H* % Lymphocytes # (Manual) 0.30 L (1.0-4.8) k/uL Blast Cells # (Man) 0.12 H (0) k/uL Carbon Dioxide 20 L (22-30) mmol/L BUN 56 H (7-17) mg/dL Glucose 70 L (74-99) mg/dL POC Glucose (mg/dL) 65 L (70-110) mg/dL Calcium 6.8 L (8.4-10.2) mg/dL Procalcitonin (0.02-0.09) ng/mL Microbiology - Last 24 Hours (Table) 02/01/23 11:32 Blood Culture - Preliminary Blood No Growth after 120 hours Assessment and Plan Assessment: Acute hypoxemic respiratory failure, with progressive shortness of breath, and worsening saturations, likely multifactorial, in part related to fluid overload, as well as possible pneumonia, left midlung and left perihilar region. Initial admission to hospital for GI bleeding, with negative colonoscopy. Transcatheter aortic valve replacement, March 2022. History of atrial fibrillation. History of CAD. History of CVA. History of COPD, secondary to ongoing tobacco use with nicotine addiction. Diabetes mellitus. GERD. Hyperlipidemia. History of hypertension. History of obstructive sleep apnea syndrome. History of cervical cancer. Multiple other medical problems and comorbidities. Plan: Plan dated 02/03/2023. Currently, the patient's on good antibiotics as per infectious diseases. This includes Flagyl, vancomycin, and aztreonam. Thus far, all microbiologic sampling has been negative. In addition, the patient's N-terminal proBNP is elevated, and she should be given some diuretic. If not already done, a pro- calcitonin level should be ordered. We will continue to follow the patient and make recommendations along the way. Prognosis is guarded. Medications are adjusted accordingly. Labs x-rays and medications are all reviewed. Plan dated 02/04/2023. Iinitially gave the patient some Lasix last night for worsening hypoxemia. He also ordered some BiPAP with settings of 12/5 and 80%. She appears to be feeling a bit better today. Currently on 15 L high flow oxygen. We will continue to follow the patient carefully. She should get intermittent doses of diuretic. She's currently on antibiotic for possible pneumonia. Her pro- calcitonin level was elevated. Plan dated 02/05/2023. The patient is seen today, in room 383. She remains on high flow nasal O2. She remains on antibiotics as per infectious diseases. She is also receiving Lasix, 40 mg IV push twice a day. She also is on breathing treatments including formoterol, budesonide, and albuterol sulfate mixed with ipratropium bromide. We will continue to follow make recommendations along the way. Prognosis is guarded. Plan dated 02/06/2023. The patient is currently on BiPAP, with settings of 12/5 and 70%. The patient's also getting TPN. Labs, x-rays, medications are reviewed. The most recent chest x-ray, done today, shows evidence of fluid overload/CHF, with bilateral pleural effusions. We will continue to follow. Her N-terminal proBNP was also elevated. The patient may warrant transferred to the intensive care unit. Prognosis is guarded. We will continue to follow the patient make recommendations along the way. Plan dated 02/07/2023. The patient will be transferred to the intensive care unit. The patient's currently on BiPAP, with settings of 12/5 and 80%. Her oxygen requirements have continued all. Her chest x-ray shows diffuse bilateral infiltrates, which could be consistent with either pneumonia and/or fluid overload. The patient continues in good antibiotics. Additional recommendations and suggestions are forthcoming. We will continue to follow the patient make recommendations along the way. Prognosis is certainly guarded. We did speak to surgery about this patient. Time with Patient: Less than 30
[2023-02-07 11:57] LABS: Glucose,Whole Blood 101 mg/dL (70-110)
--- NOTE | 2023-02-07 12:49 | P.PN ---
Subjective Patient is seen for follow-up for acute kidney injury and hyponatremia. Renal function has improved with creatinine at 0.9 mg/dL today. Patient is currently on BiPAP. She is complaining of shortness of breath and states she is feeling better with the BiPAP. Blood pressure not significantly low Patient has an indwelling Fermin catheter Maintained on IV Lasix. Objective - Vital Signs Vital signs: Vital Signs Temp 97.8 F 02/07/23 08:00 Pulse 90 02/07/23 11:17 Resp 24 02/07/23 08:00 BP 117/56 02/07/23 08:00 Pulse Ox 95 02/07/23 08:00 FiO2 80 02/07/23 11:07 Intake & Output 02/06/23 02/07/23 02/07/23 18:59 06:59 18:59 Intake Total 240 300 728 Output Total 500 300 Balance -260 300 428 Weight 85.729 kg Intake: Intake, IV Titration 300 610 Amount Aztreonam 2 gm In Sodium 100 Chloride 0.9% 100 ml @ 33 .3 mls/hr IVPB Q8H [facility] Rx #:[id number] Dextrose 10% in Water 1, 300 000 ml @ 60 mls/hr IV . [id number] [facility] Rx#:[id number] IV Fluid Continuation 1, 10 000 ml @ 0 mls/hr IV .[facility] Rx#:[id number] Vancomycin 1,500 mg In 500 Sodium Chloride 0.9% 500 ml 500 ml @ 167 mls/hr IVPB Q12H [facility] Rx#: [id number] Oral 240 118 Output: Urine 500 300 Other: Voiding Method Indwelling Catheter Indwelling Catheter Indwelling Catheter # Voids 1 # Bowel Movements 1 1 - Exam Patient is awake, no acute distress Currently on BiPAP Examination of the heart S1 and S2 Examination the lungs decreased breath sounds at the bases with basilar crackles heard Abdomen is soft obese Examination of lower extremity shows edema 1+ bilaterally - Labs CBC & Chem 7: 02/07/23 07:29 02/07/23 07:29 Labs: Abnormal Lab Results - Last 24 Hours (Table) 02/06/23 02/06/23 02/06/23 Range/Units 06:21 10:14 17:06 RBC (3.80-5.40) m/uL Hgb (11.4-16.0) gm/dL Hct (34.0-46.0) % MCH (25.0-35.0) pg MCHC (31.0-37.0) g/dL RDW (11.5-15.5) % Plt Count 79 L (150-450) k/uL Blast Cells % 1 H* % Lymphocytes # (Manual) 0.49 L (1.0-4.8) k/uL Blast Cells # (Man) 0.08 H (0) k/uL Carbon Dioxide (22-30) mmol/L BUN (7-17) mg/dL Glucose (74-99) mg/dL POC Glucose (mg/dL) 63 L (70-110) mg/dL Calcium (8.4-10.2) mg/dL Procalcitonin 2.86 H (0.02-0.09) ng/mL 02/06/23 02/06/23 02/06/23 Range/Units 17:31 18:17 20:13 RBC (3.80-5.40) m/uL Hgb (11.4-16.0) gm/dL Hct (34.0-46.0) % MCH (25.0-35.0) pg MCHC (31.0-37.0) g/dL RDW (11.5-15.5) % Plt Count (150-450) k/uL Blast Cells % % Lymphocytes # (Manual) (1.0-4.8) k/uL Blast Cells # (Man) (0) k/uL Carbon Dioxide (22-30) mmol/L BUN (7-17) mg/dL Glucose (74-99) mg/dL POC Glucose (mg/dL) 129 H 133 H 134 H (70-110) mg/dL Calcium (8.4-10.2) mg/dL Procalcitonin (0.02-0.09) ng/mL 02/07/23 02/07/23 02/07/23 Range/Units 01:44 02:05 06:20 RBC (3.80-5.40) m/uL Hgb (11.4-16.0) gm/dL Hct (34.0-46.0) % MCH (25.0-35.0) pg MCHC (31.0-37.0) g/dL RDW (11.5-15.5) % Plt Count (150-450) k/uL Blast Cells % % Lymphocytes # (Manual) (1.0-4.8) k/uL Blast Cells # (Man) (0) k/uL Carbon Dioxide (22-30) mmol/L BUN (7-17) mg/dL Glucose (74-99) mg/dL POC Glucose (mg/dL) 62 L 170 H 65 L (70-110) mg/dL Calcium (8.4-10.2) mg/dL Procalcitonin (0.02-0.09) ng/mL 02/07/23 02/07/23 02/07/23 Range/Units 07:29 07:29 11:35 RBC 3.27 L (3.80-5.40) m/uL Hgb 8.0 L (11.4-16.0) gm/dL Hct 26.7 L (34.0-46.0) % MCH 24.6 L (25.0-35.0) pg MCHC 30.1 L (31.0-37.0) g/dL RDW 24.3 H (11.5-15.5) % Plt Count 73 L (150-450) k/uL Blast Cells % 2 H* % Lymphocytes # (Manual) 0.30 L (1.0-4.8) k/uL Blast Cells # (Man) 0.12 H (0) k/uL Carbon Dioxide 20 L (22-30) mmol/L BUN 56 H (7-17) mg/dL Glucose 70 L (74-99) mg/dL POC Glucose (mg/dL) 45 L (70-110) mg/dL Calcium 6.8 L (8.4-10.2) mg/dL Procalcitonin (0.02-0.09) ng/mL 02/07/23 Range/Units 11:36 RBC (3.80-5.40) m/uL Hgb (11.4-16.0) gm/dL Hct (34.0-46.0) % MCH (25.0-35.0) pg MCHC (31.0-37.0) g/dL RDW (11.5-15.5) % Plt Count (150-450) k/uL Blast Cells % % Lymphocytes # (Manual) (1.0-4.8) k/uL Blast Cells # (Man) (0) k/uL Carbon Dioxide (22-30) mmol/L BUN (7-17) mg/dL Glucose (74-99) mg/dL POC Glucose (mg/dL) 46 L (70-110) mg/dL Calcium (8.4-10.2) mg/dL Procalcitonin (0.02-0.09) ng/mL Microbiology - Last 24 Hours (Table) 02/01/23 11:32 Blood Culture - Preliminary Blood No Growth after 120 hours Assessment and Plan Assessment: 1. Acute kidney injury mostly prerenal secondary to acute blood loss anemia and hypotension. Also received IV contrast on 01/27/2023. Resolved. UA benign. No hydronephrosis noted on imaging. 2. Acute GI bleed status post blood transfusion this admission. No active bl eeding noted on colonoscopy. Hemoglobin 7.5 today. Hematology and surgery following. Underwent bone marrow aspiration this admission. Status post blood transfusions this admission. 3. Hyponatremia. Hypervolemic. Also component of poor solute intake and component of hypertonicity from hyperglycemia. Improved. Urine sodium 29 and urine osmolality 655. TSH is slightly high at 6.8. Free T4 normal. 4. Hypomagnesemia from GI losses and poor intake. Replaced. 5. Hypokalemia from poor intake and hypomagnesemia. Replaced. 6. Volume overload. Currently being diuresed 7. Acute hypoxic respiratory failure maintained on BiPAP Plan: Continue to diurese patient Accurate measurement of intake and output for goal negative balance of at least 2 L over 24 hours Repeat labs in a.m.
[2023-02-07 13:22] LABS: Anisocytosis Marked; HCT 20.9 % (34.0-46.0); Hypochromasia Slight; MCH 25.5 pg (25.0-35.0); MCHC 31.6 g/dL (31.0-37.0); MCV 80.7 fL (80.0-100.0); Mean Platelet Volume 8.6; Microcytosis Moderate; Poikilocytosis Slight; RDW 24.3 % (11.5-15.5); WBC 5.6 k/uL (3.8-10.6)
[2023-02-07 13:37] LABS: HGB 6.6 gm/dL (11.4-16.0); Platelet Count 61 k/uL (150-450)
[2023-02-07] MEDS: NOREPINEPHRINE 8 MG in SODIUM CHLORIDE 0.9% 250 ML IV SCH (13:38)
[2023-02-07 13:54] LABS: Blast Cells # (M) 0.11 k/uL (0); Eosinophils # (M) 0.11 k/uL (0-0.7); Monocytes # (M) 0.17 k/uL (0-1.0); Neutrophils % (M) 84 %; Nucleated Red Blood Cells 0 /100 WBC (0-0); Polychromasia Present; RBC Fragments Present; Total Cells Counted 100
[2023-02-07 14:14] LABS: Glucose,Whole Blood 52 mg/dL (70-110)
[2023-02-07 14:24] LABS: ABG Base Excess -3.8 mmol/L; ABG HCO3 21 mmol/L (21-25); ABG Oxygen Saturation 96.7 % (94-97); ABG PCO2 35 mmHg (35-45); ABG PH 7.39 (7.35-7.45); ABG PO2 82 mmHg (83-108); ABG TCO2 22 mmol/L (19-24); Allen Test Performed? Yes
[2023-02-07 14:36] LABS: Glucose,Whole Blood 90 mg/dL (70-110)
[2023-02-07 14:37] LABS: Amorphous Sediment,Urine Rare /hpf; Appearance,Urine Cloudy (Clear); Bacteria,Urine Occasional /hpf; Bilirubin,Urine Negative (Negative); Blood,Urine Negative (Negative); Color,Urine Yellow; Glucose,Urine (UA) Negative (Negative); Hyaline Casts,Urine 5 /lpf (0-2); Ketones,Urine 1+ (Negative); Leukocyte Esterase,Urine Small (Negative); Mucus,Urine Rare /hpf; Nitrite,Urine Negative (Negative); Protein,Urine Trace (Negative); RBC,Urine 3 /hpf (0-5); Squamous Epithelial Cell,Urine 3 /hpf (0-4); Urobilinogen,Urine <2.0 mg/dL (<2.0); WBC,Urine 3 /hpf (0-5)
--- NOTE | 2023-02-07 15:16 | P.PN ---
Subjective Progress Note Date: 02/07/23 Principal diagnosis: Fever possible pneumonia Patient is a 72-year-old female with a past medical history negative for hypertension hyperlipidemia diabetes mellitus CVA TIA cervical cancer did have a history of atrial fibrillation on anticoagulation presenting to the [facility] on 01/22/2023 for evaluation of rectal bleeding , patient diagnosed with diverticulitis and has been treated with Levaquin and Flagyl, patient did spike fever prompting this infection consultation. On today's evaluation early 02/07/2023, the patient continues to be afebrile, the patient has been transferred to the ICU as the patient remains to be BiPAP dependent and is requiring 80% FiO2 patient also have a low blood pressure and getting started on Levophed no vomiting diarrhea or any other changes reported by the nursing staff Objective - Vital Signs Vital signs: Vital Signs Temp 97.8 F 02/07/23 08:00 Pulse 90 02/07/23 11:17 Resp 24 02/07/23 08:00 BP 117/56 02/07/23 08:00 Pulse Ox 95 02/07/23 08:00 FiO2 80 02/07/23 11:07 Intake & Output 02/06/23 02/07/23 02/07/23 18:59 06:59 18:59 Intake Total 240 300 118 Output Total 500 300 Balance -260 300 -182 Weight 85.729 kg Intake: Intake, IV Titration 300 Amount Dextrose 10% in Water 1, 300 000 ml @ 60 mls/hr IV . [id number] [facility] Rx#:[id number] Oral 240 118 Output: Urine 500 300 Other: Voiding Method Indwelling Catheter Indwelling Catheter Indwelling Catheter # Voids 1 # Bowel Movements 1 - Exam GENERAL DESCRIPTION: An elderly female lying in bed in no distress RESPIRATORY SYSTEM: Unlabored breathing , decreased breath sounds at bases HEART: S1 S2 regular rate and rhythm , ABDOMEN: Soft , no tenderness EXTREMITIES: No edema feet - Labs CBC & Chem 7: 02/07/23 13:15 02/07/23 07:29 Labs: Abnormal Lab Results - Last 24 Hours (Table) 02/06/23 02/06/23 02/06/23 Range/Units 06:21 10:14 12:19 RBC (3.80-5.40) m/uL Hgb (11.4-16.0) gm/dL Hct (34.0-46.0) % MCH (25.0-35.0) pg MCHC (31.0-37.0) g/dL RDW (11.5-15.5) % Plt Count 79 L (150-450) k/uL Blast Cells % 1 H* % Lymphocytes # (Manual) 0.49 L (1.0-4.8) k/uL Blast Cells # (Man) 0.08 H (0) k/uL Carbon Dioxide (22-30) mmol/L BUN (7-17) mg/dL Glucose (74-99) mg/dL POC Glucose (mg/dL) 130 H (70-110) mg/dL Calcium (8.4-10.2) mg/dL Procalcitonin 2.86 H (0.02-0.09) ng/mL 02/06/23 02/06/23 02/06/23 Range/Units 17:06 17:31 18:17 RBC (3.80-5.40) m/uL Hgb (11.4-16.0) gm/dL Hct (34.0-46.0) % MCH (25.0-35.0) pg MCHC (31.0-37.0) g/dL RDW (11.5-15.5) % Plt Count (150-450) k/uL Blast Cells % % Lymphocytes # (Manual) (1.0-4.8) k/uL Blast Cells # (Man) (0) k/uL Carbon Dioxide (22-30) mmol/L BUN (7-17) mg/dL Glucose (74-99) mg/dL POC Glucose (mg/dL) 63 L 129 H 133 H (70-110) mg/dL Calcium (8.4-10.2) mg/dL Procalcitonin (0.02-0.09) ng/mL 02/06/23 02/07/23 02/07/23 Range/Units 20:13 01:44 02:05 RBC (3.80-5.40) m/uL Hgb (11.4-16.0) gm/dL Hct (34.0-46.0) % MCH (25.0-35.0) pg MCHC (31.0-37.0) g/dL RDW (11.5-15.5) % Plt Count (150-450) k/uL Blast Cells % % Lymphocytes # (Manual) (1.0-4.8) k/uL Blast Cells # (Man) (0) k/uL Carbon Dioxide (22-30) mmol/L BUN (7-17) mg/dL Glucose (74-99) mg/dL POC Glucose (mg/dL) 134 H 62 L 170 H (70-110) mg/dL Calcium (8.4-10.2) mg/dL Procalcitonin (0.02-0.09) ng/mL 02/07/23 02/07/23 02/07/23 Range/Units 06:20 07:29 07:29 RBC 3.27 L (3.80-5.40) m/uL Hgb 8.0 L (11.4-16.0) gm/dL Hct 26.7 L (34.0-46.0) % MCH 24.6 L (25.0-35.0) pg MCHC 30.1 L (31.0-37.0) g/dL RDW 24.3 H (11.5-15.5) % Plt Count 73 L (150-450) k/uL Blast Cells % 2 H* % Lymphocytes # (Manual) 0.30 L (1.0-4.8) k/uL Blast Cells # (Man) 0.12 H (0) k/uL Carbon Dioxide 20 L (22-30) mmol/L BUN 56 H (7-17) mg/dL Glucose 70 L (74-99) mg/dL POC Glucose (mg/dL) 65 L (70-110) mg/dL Calcium 6.8 L (8.4-10.2) mg/dL Procalcitonin (0.02-0.09) ng/mL 02/07/23 02/07/23 Range/Units 11:35 11:36 RBC (3.80-5.40) m/uL Hgb (11.4-16.0) gm/dL Hct (34.0-46.0) % MCH (25.0-35.0) pg MCHC (31.0-37.0) g/dL RDW (11.5-15.5) % Plt Count (150-450) k/uL Blast Cells % % Lymphocytes # (Manual) (1.0-4.8) k/uL Blast Cells # (Man) (0) k/uL Carbon Dioxide (22-30) mmol/L BUN (7-17) mg/dL Glucose (74-99) mg/dL POC Glucose (mg/dL) 45 L 46 L (70-110) mg/dL Calcium (8.4-10.2) mg/dL Procalcitonin (0.02-0.09) ng/mL Microbiology - Last 24 Hours (Table) 02/01/23 11:32 Blood Culture - Preliminary Blood No Growth after 120 hours Assessment and Plan (1) Fever Current Visit: Yes Status: Acute Code(s): R50.9 - FEVER, UNSPECIFIED SNOMED Code(s): 959439875 Plan: 1patient with sepsis in this patient who did have a fever elevated white count present to the hospital predominantly with the GI symptoms specially with abdominal pain and bleeding per rectum patient bleeding seems to have improved however still complaining of diarrhea with admission CT did shows evidence of sigmoid diverticulitis patient also have some urinary symptoms and with exposure to antibiotics concerning for possible CVA versus UTI. 2patient with multiple antibiotic allergies that would limit the number of antibiotics safe to use. 3patient did have elevated CRP procalcitonin chest x-ray concerning for possible left-sided pneumonia, sputum cultures obtained which are so for negative 4patient fever has resolved and the patient white count has normalized however patient did have worsening of respiratory status and has been transferred to the ICU if the patient did get intubated nursing staff has been advised to get sputum culture 5-patient to continue vancomycin Azactam and Flagyl and monitor clinical course closely Time with Patient: Less than 30
[2023-02-07 15:34] LABS: Glucose,Whole Blood 78 mg/dL (70-110)
[2023-02-07 16:06] LABS: Glucose,Whole Blood 73 mg/dL (70-110)
[2023-02-07 17:43] LABS: Glucose,Whole Blood 116 mg/dL (70-110)
[2023-02-07 19:03] LABS: Anisocytosis Moderate; HCT 24.4 % (34.0-46.0); HGB 7.6 gm/dL (11.4-16.0); Hypochromasia Slight; MCH 25.3 pg (25.0-35.0); MCHC 31.3 g/dL (31.0-37.0); MCV 80.8 fL (80.0-100.0); Mean Platelet Volume 8.7; Microcytosis Moderate; Poikilocytosis Slight; RBC 3.02 m/uL (3.80-5.40); RDW 23.4 % (11.5-15.5); WBC 7.1 k/uL (3.8-10.6)
[2023-02-07 19:13] LABS: Platelet Count 70 k/uL (150-450)
[2023-02-07 19:50] LABS: Glucose,Whole Blood 124 mg/dL (70-110)
[2023-02-07] MEDS: LACTATED RINGERS 1,000 ML IV SCH (19:55)
[2023-02-07] MEDS ORDERED: FUROSEMIDE 10 MG/ML 10 ML VIAL IV STA (21:32)
[2023-02-07] MEDS: ATORVASTATIN 40 MG TAB PO SCH (21:42)
[2023-02-07] MEDS: BACLOFEN 10 MG TAB PO SCH (21:42)
[2023-02-07] MEDS: MIDODRINE 5 MG TAB PO PRN (21:43)
[2023-02-07] MEDS: HYDROcodone/APAP 5-325MG 1 EACH TAB PO PRN (21:43)
[2023-02-07 22:22] LABS: Glucose,Whole Blood 129 mg/dL (70-110)
[2023-02-08 00:01] LABS: Glucose,Whole Blood 146 mg/dL (70-110)
[2023-02-08 00:10] LABS: Anisocytosis Moderate; HCT 24.4 % (34.0-46.0); HGB 7.8 gm/dL (11.4-16.0); Hypochromasia Slight; MCH 25.8 pg (25.0-35.0); MCHC 32.2 g/dL (31.0-37.0); MCV 80.1 fL (80.0-100.0); Mean Platelet Volume 8.5; Microcytosis Moderate; Poikilocytosis Moderate; RBC 3.04 m/uL (3.80-5.40); RDW 23.4 % (11.5-15.5); WBC 8.2 k/uL (3.8-10.6)
[2023-02-08 00:33] LABS: Platelet Count 70 k/uL (150-450)
[2023-02-08 01:26] LABS: Anisocytosis (M) Present; Eosinophils # (M) 0.82 k/uL (0-0.7); Large Platelets Present; Monocytes # (M) 0.33 k/uL (0-1.0); Neutrophils # (M) 6.15 k/uL (1.3-7.7); Neutrophils % (M) 75 %; Nucleated Red Blood Cells 0 /100 WBC (0-0); Poikilocytosis (M) Present; Polychromasia Present; RBC Fragments Present; Total Cells Counted 100
[2023-02-08] MEDS: AZTREONAM 2 GM in SODIUM CHLORIDE 0.9% 100 ML IVPB SCH ×3 (02:08→17:32)
[2023-02-08 04:40] LABS: Albumin 1.7 g/dL (3.5-5.0); Calcium 6.5 mg/dL (8.4-10.2); Magnesium 1.9 mg/dL (1.6-2.3); Potassium 3.9 mmol/L (3.5-5.1); Total Bilirubin 1.2 mg/dL (0.2-1.3); Total Protein 4.4 g/dL (6.3-8.2)
[2023-02-08 04:41] LABS: Anisocytosis Moderate; HCT 23.4 % (34.0-46.0); HGB 7.5 gm/dL (11.4-16.0); Hypochromasia Slight; MCH 25.3 pg (25.0-35.0); MCV 79.2 fL (80.0-100.0); Mean Platelet Volume 9.5; Microcytosis Moderate; Poikilocytosis Moderate; RBC 2.95 m/uL (3.80-5.40); RDW 23.3 % (11.5-15.5); WBC 8.7 k/uL (3.8-10.6)
[2023-02-08 04:49] LABS: Platelet Count 75 k/uL (150-450)
[2023-02-08 05:22] LABS: Anisocytosis (M) Present; Band Neutrophils % 1 %; Blast Cells # (M) 0.09 k/uL (0); Eosinophils # (M) 0.61 k/uL (0-0.7); Lymphocytes # (M) 0.61 k/uL (1.0-4.8); Monocytes # (M) 0.26 k/uL (0-1.0); Neutrophils % (M) 81 %; Nucleated Red Blood Cells 0 /100 WBC (0-0); Poikilocytosis (M) Present; Polychromasia Present; RBC Fragments Present; Total Cells Counted 100
[2023-02-08] MEDS ORDERED: MAGNESIUM SULFATE-D5W PMX 1 GM in DEXTROSE/WATER 1 100ML.BAG IVPB ONE (05:24)
[2023-02-08] MEDS ORDERED: Potassium Replacement Protocol 1 EACH MISC MISCELLANE PRN (05:25)
[2023-02-08 05:35] LABS: Glucose,Whole Blood 148 mg/dL (70-110)
[2023-02-08] MEDS: POTASSIUM CHLORIDE 10 MEQ in WATER FOR INJECTION 1 100ML.BAG IVPB SCH ×2 (05:36→06:59)
[2023-02-08] MEDS: FERROUS SULFATE 325 MG TAB PO SCH ×2 (05:37→17:32)
[2023-02-08 05:47] LABS: ABG Base Excess -4.3 mmol/L; ABG HCO3 21 mmol/L (21-25); ABG Oxygen Saturation 95.1 % (94-97); ABG PCO2 33 mmHg (35-45); ABG PO2 74 mmHg (83-108); ABG TCO2 22 mmol/L (19-24); Allen Test Performed? Yes
--- NOTE | 2023-02-08 06:20 | P.PN ---
Subjective Progress Note Date: 02/07/23 This is a pleasant 72 years old female with multiple medical problems including Atrial Fibrillation, Coronary Artery Disease (CAD), Cancer, COPD, CVA/TIA, Diabetes Mellitus, GERD/Reflux, Hyperlipidemia, Hypertension, Pneumonia, Sleep Apnea/CPAP/BIPAP, Syncope she was discharged from this facility one month ago forpossible GI bleed, TIA, syncope and bronchitis. She was visiting her surgeon yesterday in the outpatient setting and she was referred to emergency room, Patient states that since last Thursday about one week ago she noticed she was not eating well and she had only one piece of pizza because of that. She started having blood per rectum, she will not stretch blood with clots filled the toilet about 3-4 times a day, also she was feeling more lethargic and weak and she slept for 48 hours as she described, complaining OF from abdominal pain mainly in the lower abdomen on the right side since Thursday about /10 like colic comes and goes. Also patient has been vomiting 2-3 times per day but there is no blood. Also patient with poor appetite. Visiting nurse noticed that her blood pressure was on the low side about 80/40 so she decided to go and see her surgeon before here for her to the emergency room. However when I saw the patient this morning she was fully awake and oriented, she looks comfortable pleasant and not in distress, she was complaining only from minimal abdominal pain. On admission she had a fever of 101, she was hypotensive and severely anemic her blood pressure 1000 as79/45, was fluctuation up to 113/45,this morning her blood pressure was 91/46, she is saturating 93% on 3 L oxygen. hemoglobin on admission was 7.7 and 6.1, compared to 9.8 last month for shawn campo. She received 1 unit of blood transfusion and her hemoglobin this morning is 7.4.INR is normal mildly elevated lactic acid came back to normal. Basic metabolic panel and liver enzymes were unremarkable this morning. urine analysis is negative and multiple viruses are undetected including covid ,influenza and RSV she has CT of the abdomen and pelvis with IV contrast showing no bowel obstru ction with mild sigmoid diverticulitis she received 2 L of normal saline and antibiotics with Flagyl and Levaquin. echocardiogram from 04/03/2022 showing ejection fraction of 55-60% 01/24/2022 Patient feels better, she feels stronger, she was walking the hallway. Her blood pressure still borderline but is improving slowly and gradually while she is on IV fluids also she is on midodrine which she thinks is helping her She still reports some blood in his stool but it's mild Hemoglobin is stable about 7.5. She remains on Levaquin and IV Flagyl and normal saline at 1:30 milliliters per hour Check labs in the morning. Currently patient is placed on liquid diets 01/25/2023 Patient is having recurrent vomiting this morning with some worsening upper abdominal pain but her abdomen still looks soft, no guarding or rebound tenderness. She still has a few spots of bleeding per rectum and epistaxis which is mild. Blood pressure actually improved, with no tachycardia, we will alert her midodrine 5 mg twice a day and we'll alert her normal saline 200 mL per hour. She has worsening swelling in her extremities as well. KUB from today is negative for acute process. She remains on Flagyl and Levaquin Surgery team on the case and plan for endoscopy tomorrow treatment Continue with Phenergan 25 mg as patient states is helping her 01/26/2023 Patient is seen and evaluated in follow-up this morning reports she underwent a bowel prep and is scheduled for colonoscopy with general surgery services today. Patient reports she had clear stool and most recent bowel movement was free of any dark stools or blood. Patient also being followed closely and maintained on IV antibiotics in the form of Flagyl and Levaquin for acute diverticulitis. Hemoglobin is currently stable today at 7.7. WBC is elevated at 14.7 and patient will continue on antibiotics. Kidney functions are within normal limits and blood sugars being monitored. Recommend continue with IV Protonix twice daily. Patient is currently afebrile with no reports of chest pain or shortness of breath. Patient is continued on 2 L and would recommend weaning FiO2 as tolerated. Will await colonoscopy report. 01/27/2023 Patient is seen today and is being followed by general surgery as well as hematology. Patient hemoglobin is 7.1 today and wbc is elevated. Hematology recommending IV iron x2 as studies were low. Recommend repeat cbc in am. Patient is currently NPO and continued on IV abx in the form of flagyl and levaquin for diverticulitis. Colonoscopy shows no acute bleed noted, possibly diverticular disease along with sigmoid diverticulitis. Continue with pain management as patient reports abdominal cramping. Patient anticoagulant remains on hold. Patient is afebrile and has been up and walking. 01/28/2023 Patient is seen in follow up with morning and being followed by surgery as well as hematology. Patient hemoglobin is up to 8 today and has received IV iron x2. Patient blast cells 3 today with hematology following closely. Recommending outpatient follow up. Patient reports some improvement in abdominal pain and diet is being slowly advanced per surgery to clear liquids. Recommend to monitor for tolerance. Chest xray was ordered and pending. Patient continued on IV antibiotics and will continue. Need to discuss further with surgery about treatment plan. Patient is afebrile and continues with an elevated WBC. Recommend follow up labs in the am. 01/29/2023 Patient is seen in follow-up with surgery following. Patient hemoglobin is stable currently and maintained off anticoagulation. Patient is a new non-oral iron supplementation and will continue. Patient continues to have elevated WBC currently above 16 and blast cells at 4 today. Patient is continued on IV antibiotics for the diverticulitis and has been maintaining and tolerating clear liquid diet and reports improvement in her abdominal pain with no reports of nausea or vomiting. Chest x-ray showing some overload and patient reports to having some abdominal bloating as well as generalized edema and will give a dose of IV Lasix. Recommend discontinuing IV hydration. Will follow-up with repeat labs. Recommend incentive spirometer and continuing to use at least 10 times every hour while awake. Encouraged increased activity as tolerated patient reports has been up and walking to the whole back. Recommend continued physical therapy. 01/30/2023 Patient is seated evaluated in follow-up continuing to lie in the bed with gener alized weakness. Patient reports she has been up but not as much. Patient is to receive a PICC line in no being started on TPN given her poor oral intake. Electrolyte abnormalities noting potassium of 3.2 and magnesium is 1.1 and will replace and recommend repeat labs. Patient also continues to report abdominal bloating and abdomen is soft and nontender on exam. Patient did receive a dose of IV Lasix yesterday with good output. General surgery starting TPN with dietitian to follow. Encouraged incentive spirometer at the bedside as patient continues to be on oxygen it does not normally wear this in the outpatient setting. Wean FiO2 as tolerated. Repeat CBC shows a hemoglobin 7.1 today and blast cells are increased up to 9 and discussed with oncology team with plans for possible bone marrow biopsy on Thursday. 01/31/2023 Patient is seen and evaluated in follow-up and hemoglobin was 6.9 today and awaiting to receive 2 units of blood with hematology following closely. General surgery following as well and has placed the patient on TPN and has received a PICC line. Electrolytes were replaced in magnesium above 2 and potassium 3.5. Patient's blood pressure on the lower side most likely multifactorial with pain medications and low blood count will add midodrine. Kidney functions worsened along with patient's sodium becoming hyponatremic although difficult to give IV fluids as patient overload easily. Will consult nephrology and appreciate input and recommendations. Patient is afebrile with no reports of nausea or vomiting noted. No reported chest pain or worsening shortness of breath at this time. Patient needs increased activity as tolerated and sitting up in the chair more often. Would recommend PT/OT therapy daily. 02/01/2023 Patient is seen in follow-up today reports she is not feeling well and per nursing staff has been having fevers overnight and continued on antibiotics for diverticulitis with surgery following. Hematology/oncology following as well and planning for possible bone marrow biopsy tomorrow. Patient is continued on TPN and has PICC line continues with indwelling Fermin catheter. Patient is reporting diarrhea and abdominal distention with pain. Infectious disease consulted and pending. Blood sugars have been elevated and was continued on sliding scale and will continue and add long-acting as well. No reports of chest pain or palpitations noted. Patient is wearing oxygen does not normally wear oxygen outpatient. Patient continues with generalized weakness and is continued on clear liquids. 02/02/2023 Patient seen and evaluated in follow-up with multiple medical consultations following. Blast cells remain elevated and hemoglobin currently stable after transfusion. Patient scheduled for bone marrow biopsy in the a.m. Patient also continues on TPN with general surgery following recommending to continue along with IV antibiotics. Infectious disease has been consulted and antibiotics being adjusted as patient had continued fevers and elevated white count. Pro- calcitonin is elevated and will continue. Patient is having elevated blood sugars and have adjusted long-acting and will continue sliding scale and m onitoring closely. Patient is requiring more oxygen demand currently at 5 L and normally does not wear any oxygen. Chest x-ray ordered pending. 02/03/2023 Patient is seen and evaluated in follow-up today with multiple medical consultations following. Overall prognosis remains guarded as patient has multiple comorbidities and medical issues ongoing. Patient currently remains on TPN for poor oral intake and recommend monitoring electrolytes closely replacing per protocol. Patient hemoglobin improved with no active bleeding noted. Patient continues with abdominal pain as well as some shortness of breath and white count remains elevated patient is having fevers. Chest x-ray suggestive of some volume overload and will continue dose of Lasix. Patient underwent bone marrow biopsy with oncology today. Blood sugars remain uncontrolled and will add pre-meal insulins as well as continue long-acting and sliding scale, possibly consider insulin drip. 02/04/2023 Patient is seen and evaluated in follow-up this morning reports she feels somewhat improved although continues to require high flow oxygen and also using BiPAP with pulmonary following. Chest x-ray this morning is suggestive of pulmonary edema and pleural fluid which is the same or slightly worse than previous could be CHF and was given doses of Lasix with improvement. Patient being started on IV Lasix twice daily with nephrology following closely. Hemoglobin is stable at 7.7 and white count is 8.6, blast cells are 6 and oncology following and has underwent bone marrow biopsy which is pending. Kidney functions are stable in magnesium found to be 1.6 and will replace per protocol. Patient continues on TPN and continues to have multiple electrolyte abnormalities at times. Patient also extremely hyperglycemic and will attempt increasing the long-acting with increasing the pre-meal as well as continuing sliding scale and may require an insulin drip. Patient is also continued on IV antibiotics with infectious disease following closely and per medical record patient has been refusing aztreonam and unsure why. Recommend wean FiO2 as tolerated and encouraged increase activity as tolerated 02/05/2023 Patient is seen and evaluated in follow-up this morning currently sitting up at the side of the bed continues to report shortness of breath although feels is improved. Patient is using BiPAP on occasion and currently maintained on 15 L high flow. Patient is maintained on IV Lasix with nephrology following closely. Multiple medical consultations following including general surgery recommending to continue TPN for abdominal pain and poor oral intake. Would recommend decreasing the rate and amount of fluid from TPN and have discussed this with pharmacy along with dietary adjustments are being made. Patient's blood sugars are elevated although more controlled on current regimen and will continue. Hemoglobin found to be 6.9 this morning and will give a unit of PRBC and recommend follow-up labs. Patient is receiving DuoNeb treatments and would recommend follow-up chest x-ray in the a.m. Overall prognosis remains guarded. 02/06/2023 Patient is seen in follow-up today continued on BiPAP currently had increased respiratory distress requiring an a team last night and maintained on BiPAP and refusing to take it off she is having increasing shortness of breath. Patient is now continued on IV Lasix and TPN being discontinued. Patient is refusing all medications at this time and discuss with nursing staff about encouraging oral intake. Was notified from pharmacy they are out of TPN and okay to discontinue per surgery. Blood sugars improved although patient is not eating and will continue to monitor closely. Patient hemoglobin above 7 and WBC is patient is continued on antibiotics with ID following and has also been started on vancomycin in addition. Pro-calcitonin is elevated. Overall prognosis remains extremely guarded. 02/07/2023 Patient is seen in follow-up this morning currently on the stepdown unit with multiple medical consultations following with plans for transferring to ICU as respiratory status has declined once again and now maintained on continuous BiPA P with an 80% FiO2. Patient has been refusing to remove the BiPAP for any eating or medication and discussed with nursing staff the importance of medication administration as well as the patient. Oral intake remains poor and patient is lethargic. Patient's blood sugars have now been on the lower side as patient is not eating and will add just sliding scale and discontinue the long- acting had prerenal insulins for now. Recommend continue monitoring Accu-Cheks closely for any signs of hypoglycemia as well. Chest x-ray continues to show some overload versus possible pneumonia patient is maintained on IV aztreonam as well as vancomycin with infectious disease following closely. Overall prognosis remains extremely guarded at this time. Will follow-up with repeat labs in a.m. and monitor the patient closely in the ICU. Review of systems: Constitutional: reports of fatigue, reports not feeling well Cardiovascular: No reports of chest pain or palpitations Respiratory: reports of worsening shortness of breath GI: No reports of nausea, vomiting, or diarrhea, reports decreased abdominal pain had been refusing to eat with no real appetite : No reports of dysuria or retention Neurovascular: reports of generalized weakness All medications have been reviewed Active Medications Acetaminophen (Acetaminophen Tab 325 Mg Tab) 650 mg PO Q6HR PRN PRN Reason: Fever and/ or Mild Pain Last Admin: 02/05/23 03:44 Dose: 650 mg Hydrocodone Bitart/Acetaminophen (Hydrocodone/Apap 5-325mg 1 Each Tab) 1 each PO Q6HR PRN PRN Reason: Pain Last Admin: 02/07/23 21:43 Dose: 1 each Albuterol/Ipratropium (Ipratropium-Albuterol 3 Ml Neb) 3 ml INHALATION RT-QID [facility] Last Admin: 02/07/23 20:04 Dose: 3 ml Albuterol/Ipratropium (Ipratropium-Albuterol 3 Ml Neb) 3 ml INHALATION RT-Q2H PRN PRN Reason: Shortness Of Breath Or Wheezing Atorvastatin Calcium (Atorvastatin 40 Mg Tab) 40 mg PO HS [facility] Last Admin: 02/07/23 21:42 Dose: 40 mg Baclofen (Baclofen 10 Mg Tab) 10 mg PO [facility] Last Admin: 02/07/23 21:42 Dose: 10 mg Budesonide (Budesonide 1 Mg/2 Ml Nebu) 1 mg INHALATION RT-BID [facility] Last Admin: 02/07/23 20:04 Dose: 1 mg Dextrose/Water (Dextrose 50% Syringe 50 Ml) 25 ml IVP PER PROTOCOL PRN; Protocol PRN Reason: Hypoglycemia Last Admin: 02/07/23 14:12 Dose: 25 ml Dextrose/Water (Dextrose 50% Syringe 50 Ml) 50 ml IVP PER PROTOCOL PRN; Protocol PRN Reason: Hypoglycemia Ferrous Sulfate (Ferrous Sulfate 325 Mg Tab) 325 mg PO BID-W/MEALS [facility] Last Admin: 02/08/23 05:37 Dose: 325 mg Fluticasone Propionate (Fluticasone 50mcg/Perry Nasal 16gm) 2 spray EA NOSTRIL DAILY PRN PRN Reason: allergies Last Admin: 01/28/23 16:26 Dose: 2 spray Formoterol Fumarate (Formoterol Fumarate 20 Mcg/2 Ml Nebu) 20 mcg INHALATION RT-BID [facility] Last Admin: 02/07/23 20:04 Dose: 20 mcg Furosemide (Furosemide 10 Mg/Ml 4 Ml Vial) 40 mg IV TID [facility] Last Admin: 02/07/23 22:45 Dose: Not Given Heparin Sodium (Porcine) (Heparin Sodium,Porcine/Pf 5,000 Unit/0.5 Ml Syringe) 5,000 unit SQ Q12HR [facility] Last Admin: 02/07/23 22:35 Dose: Not Given Hydromorphone HCl (Hydromorphone 1 Mg/Ml 1 Ml Syringe) 1 mg IVP Q3H PRN PRN Reason: Moderate to Severe Pain (4-10) Last Admin: 02/07/23 02:35 Dose: 1 mg Aztreonam 2 gm/ Sodium (Chloride) 100 mls @ 33.3 mls/hr IVPB Q8H [facility]; Protocol Last Admin: 02/08/23 02:08 Dose: 33.3 mls/hr Lactated Ringer's (Lactated Ringers) 1,000 mls @ 20 mls/hr IV .Q24H [facility] Last Admin: 02/07/23 19:55 Dose: Not Given Vancomycin HCl 1,500 mg/ (Sodium Chloride) 500 mls @ 167 mls/hr IVPB Q12H [facility] Last Admin: 02/07/23 23:28 Dose: 167 mls/hr Norepinephrine Bitartrate 8 mg (/ Sodium Chloride) 258 mls @ 4.977 mls/hr IV .Q24H [facility]; Protocol Last Titration: 02/08/23 03:00 Dose: 0.11 mcg/kg/min, 18.247 mls/hr Magnesium Sulfate/Dextrose 1 (gm/ IV Solution) 100 mls @ 100 mls/hr IVPB ONCE ONE; Protocol Stop: 02/08/23 06:23 Last Admin: 02/08/23 05:36 Dose: 100 mls/hr Potassium Chloride 10 meq/ IV (Solution) 100 mls @ 100 mls/hr IVPB Q1H [facility]; Protocol Stop: 02/08/23 07:29 Last Admin: 02/08/23 05:36 Dose: 100 mls/hr Insulin Aspart (Insulin Aspart (Novolog) 100 Unit/Ml Vial) 0 unit SQ ACHS [facility]; Protocol Last Admin: 02/07/23 19:55 Dose: Not Given Lidocaine HCl (Lidocaine 1% (10mg/Ml) For Iv Start) 0.1 ml INTRADERMA PER PROTOCOL PRN PRN Reason: IV Start Metoprolol Tartrate (Metoprolol Tartrate 25 Mg Tab) 25 mg PO BID [facility] Last Admin: 02/07/23 22:36 Dose: Not Given Midodrine (Midodrine 5 Mg Tab) 5 mg PO AC-TID PRN PRN Reason: Hypotension Last Admin: 02/07/23 21:43 Dose: 5 mg Miscellaneous Information (Potassium Replacement Protocol 1 Each Misc) 1 each MISCELLANE DAILY PRN; Protocol PRN Reason: Per Protocol Miscellaneous Information (Magnesium Replacement Protocol 1 Each Mis) 1 each MISCELLANE DAILY PRN; Protocol PRN Reason: Per Protocol Miscellaneous Information (Vancomycin Trough Due 1 Each Misc) 1 each MISCELLANE ONCE ONE Stop: 02/08/23 11:01 Naloxone HCl (Naloxone 0.4 Mg/Ml 1 Ml Vial) 0.2 mg IV Q2M PRN PRN Reason: Opioid Reversal Ondansetron HCl (Ondansetron 4 Mg/2 Ml Vial) 4 mg IVP Q6HR PRN PRN Reason: Nausea And Vomiting Last Admin: 01/30/23 19:49 Dose: 4 mg Pantoprazole Sodium (Pantoprazole 40 Mg/10 Ml Vial) 40 mg IVP BID [facility] Last Admin: 02/07/23 21:42 Dose: 40 mg Promethazine HCl (Promethazine 25 Mg Tab) 25 mg PO Q6HR PRN PRN Reason: Nausea Last Admin: 01/27/23 13:51 Dose: 25 mg Sertraline HCl (Sertraline 50 Mg Tab) 50 mg PO DAILY [facility] Last Admin: 02/07/23 09:15 Dose: 50 mg Simethicone (Simethicone 80 Mg Chewable) 80 mg PO QID [facility] Last Admin: 02/07/23 19:57 Dose: Not Given Physical exam: GENERAL: The patient is alert and oriented x3, Well developed, well nourished. Obese, elderly and ill-appearing, now maintained on BiPAP continuous HEENT: Pupils are round and equally reacting to light. EOMI. No scleral icterus. No conjunctival pallor. Normocephalic, atraumatic. No pharyngeal erythema. No thyromegaly. CARDIOVASCULAR: S1 and S2 muffled PULMONARY: Diminished breath sounds bilaterally with some scattered rhonchi and crackles noted ABDOMEN: Soft, obese, lower abdominal tenderness with some bloating, nondistended, normoactive bowel sounds. No palpable organomegaly. MUSCULOSKELETAL: No joint swelling or deformity. EXTREMITIES: No cyanosis, clubbing, or pedal edema. NEUROLOGICAL: Gross neurological examination did not reveal any focal deficits. Diffusely weak SKIN: No rashes. no petechiae. Assessment: Acute anemia, mostly acute blood loss anemia, associated with abdominal pain and sigmoid diverticulitis Acute hypoxemic respiratory failure, possibly secondary to volume overload, now requiring BiPAP Diverticular disease as noted on colonoscopy Sigmoid diverticulitis Acute kidney injury, multifactorial possibly secondary to hypotension as well as poor oral intake, improving Severe protein calorie malnutrition secondary to above History of chronic Anemia, iron deficiency Elevated blast cells, currently 1%, possibly secondary to previous chemotherapy or due to recent GI bleeding, bone marrow biopsy on 02/03/2023 is pending Atrial Fibrillation, on Eliquis (ON HOLD) status post Permanent Pacemaker history of anterior abdominal wall fluid collection could be related to seroma Coronary Artery Disease history, status post stent Obesity with BMI of 30.5 COPD, not in exacerbation CVA/TIA history with left foot drop Diabetes Mellitus, uncontrolled with hyperglycemia GERD/Reflux Hyperlipidemia Hypertension Sleep Apnea/CPAP/BIPAP Diabetic neuropathy bilateral legs/feet History of colon cancer with revision/colostomy since reversed and chemo/radiation History of PVD Full code Plan: Recommend continue with antibiotics in the form of now vancomycin and Aztreonam with infectious disease following. Procalcitonin is elevated. Blood cultures thus far remain negative and sputum culture was sent and pending. WBC has improved and patient is afebrile Recommend to continue weaning FiO2 as tolerated currently on BiPAP continuously with pulmonary following transfer to ICU for close monitoring Gen. surgery following this patient is status post endoscopy with no active bleeding noted likely diverticular, TPN being discontinued his pharmacy is out of and okay per surgery to [place] Blood sugars improved although patient is not eating and we'll continue sliding scale, will discontinue long-acting insulin and recommend monitor Accu-Cheks closely for hypoglycemia Recommend consistent carb diabetic diet continuing to encourage oral intake as patient is reporting no appetite and has not been eating Continues on IV Lasix chest x-ray continues to show overload versus some pneumonia on the left Oncology following patient underwent bone marrow biopsy on 02/03/2023 Recommend follow-up labs in a.m. Recommend continue holding eliquis at this time with concerns for possible GI bleed, patient was started on subcu heparin by cardiology although this is currently being held as well recommend increased activity as tolerated Due to multiple complex medical issues, prognosis is extremely guarded The impression and plan of care has been dictated by Mindy Saleh, Nurse Practitioner as directed. Dr. Yury MD I have performed a history and examination and MDM of this patient, discussed the same with the dictator, and agree with the dictator's assessment and plan as written ,documented as a scribe. Based on total visit time, I have performed more than 50% of the visit. Objective - Vital Signs Vital signs: Vital Signs Temp 98.3 F 02/07/23 00:00 Pulse 112 H 02/07/23 07:43 Resp 24 02/07/23 05:06 BP 108/50 02/07/23 03:40 Pulse Ox 99 02/07/23 05:06 FiO2 80 02/07/23 07:33 Intake & Output 02/06/23 02/07/23 02/07/23 18:59 06:59 18:59 Intake Total 240 300 Output Total 500 Balance -260 300 Weight 85.729 kg Intake: Intake, IV Titration 300 Amount Dextrose 10% in Water 1, 300 000 ml @ 60 mls/hr IV . [id number] [facility] Rx#:[id number] Oral 240 Output: Urine 500 Other: Voiding Method Indwelling Catheter Indwelling Catheter # Voids 1 # Bowel Movements 1 - Labs CBC & Chem 7: 02/08/23 04:01 02/08/23 04:01 Labs: Abnormal Lab Results - Last 24 Hours (Table) 02/06/23 02/06/23 02/06/23 Range/Units 06:21 06:21 06:21 RBC 3.01 L (3.80-5.40) m/uL Hgb 7.5 L (11.4-16.0) gm/dL Hct 24.5 L (34.0-46.0) % MCHC 30.7 L (31.0-37.0) g/dL RDW 24.2 H (11.5-15.5) % Plt Count 79 L (150-450) k/uL Blast Cells % 1 H* % Lymphocytes # (Manual) 0.49 L (1.0-4.8) k/uL Blast Cells # (Man) 0.08 H (0) k/uL Carbon Dioxide 21 L (22-30) mmol/L BUN 46 H (7-17) mg/dL Glucose 169 H (74-99) mg/dL POC Glucose (mg/dL) (70-110) mg/dL Calcium 6.9 L (8.4-10.2) mg/dL Phosphorus 5.7 H (2.5-4.5) mg/dL Procalcitonin (0.02-0.09) ng/mL 02/06/23 02/06/23 02/06/23 Range/Units 10:14 12:19 17:06 RBC (3.80-5.40) m/uL Hgb (11.4-16.0) gm/dL Hct (34.0-46.0) % MCHC (31.0-37.0) g/dL RDW (11.5-15.5) % Plt Count (150-450) k/uL Blast Cells % % Lymphocytes # (Manual) (1.0-4.8) k/uL Blast Cells # (Man) (0) k/uL Carbon Dioxide (22-30) mmol/L BUN (7-17) mg/dL Glucose (74-99) mg/dL POC Glucose (mg/dL) 130 H 63 L (70-110) mg/dL Calcium (8.4-10.2) mg/dL Phosphorus (2.5-4.5) mg/dL Procalcitonin 2.86 H (0.02-0.09) ng/mL 02/06/23 02/06/23 02/06/23 Range/Units 17:31 18:17 20:13 RBC (3.80-5.40) m/uL Hgb (11.4-16.0) gm/dL Hct (34.0-46.0) % MCHC (31.0-37.0) g/dL RDW (11.5-15.5) % Plt Count (150-450) k/uL Blast Cells % % Lymphocytes # (Manual) (1.0-4.8) k/uL Blast Cells # (Man) (0) k/uL Carbon Dioxide (22-30) mmol/L BUN (7-17) mg/dL Glucose (74-99) mg/dL POC Glucose (mg/dL) 129 H 133 H 134 H (70-110) mg/dL Calcium (8.4-10.2) mg/dL Phosphorus (2.5-4.5) mg/dL Procalcitonin (0.02-0.09) ng/mL 02/07/23 02/07/23 02/07/23 Range/Units 01:44 02:05 06:20 RBC (3.80-5.40) m/uL Hgb (11.4-16.0) gm/dL Hct (34.0-46.0) % MCHC (31.0-37.0) g/dL RDW (11.5-15.5) % Plt Count (150-450) k/uL Blast Cells % % Lymphocytes # (Manual) (1.0-4.8) k/uL Blast Cells # (Man) (0) k/uL Carbon Dioxide (22-30) mmol/L BUN (7-17) mg/dL Glucose (74-99) mg/dL POC Glucose (mg/dL) 62 L 170 H 65 L (70-110) mg/dL Calcium (8.4-10.2) mg/dL Phosphorus (2.5-4.5) mg/dL Procalcitonin (0.02-0.09) ng/mL Microbiology - Last 24 Hours (Table) 02/01/23 11:32 Blood Culture - Preliminary Blood No Growth after 120 hours
[2023-02-08] MEDS ORDERED: metOLazone 5 MG TAB PO STA (06:54)
[2023-02-08 07:09] LABS: Glucose,Whole Blood 197 mg/dL (70-110)
[2023-02-08] MEDS: FUROSEMIDE 100 MG in SODIUM CHLORIDE 0.9% 90 ML IV SCH ×3 (07:10→23:06)
--- NOTE | 2023-02-08 07:25 | XR ---
EXAMINATION TYPE: XR chest 1V portable DATE OF EXAM: 02/08/2023 COMPARISON: 02/07/2023 INDICATION: Short of breath TECHNIQUE: Single frontal view of the chest is obtained. FINDINGS: The heart size is normal. The pulmonary vasculature is prominent. Perihilar infiltrates are present. Bibasilar infiltrates are present. Small pleural effusions may be present. IMPRESSION: 1. Bibasilar infiltrates with small pleural effusions. Correlate for congestive heart failure and pul monary edema.
[2023-02-08] MEDS: FORMOTEROL FUMARATE 20 MCG/2 ML NEBU INHALATION SCH ×2 (07:53→19:59)
[2023-02-08] MEDS: IPRATROPIUM-ALBUTEROL 3 ML NEB INHALATION SCH ×4 (07:53→19:59)
[2023-02-08] MEDS: BUDESONIDE 1 MG/2 ML NEBU INHALATION SCH ×2 (07:53→19:59)
[2023-02-08] MEDS: NOREPINEPHRINE 8 MG in SODIUM CHLORIDE 0.9% 250 ML IV SCH (07:56)
[2023-02-08] MEDS: HYDROmorphone 1 MG/ML 1 ML SYRINGE IVP PRN ×2 (07:57→15:57)
[2023-02-08] MEDS: INSULIN ASPART (NovoLOG) 100 UNIT/ML VIAL SQ SCH ×4 (08:00→20:27)
[2023-02-08] MEDS: PANTOPRAZOLE 40 MG/10 ML VIAL IVP SCH ×2 (09:19→20:27)
[2023-02-08] MEDS: SIMETHICONE 80 MG CHEWABLE PO SCH ×4 (09:19→21:25)
[2023-02-08] MEDS: SERTRALINE 50 MG TAB PO SCH (09:19)
[2023-02-08] MEDS: HEPARIN SODIUM,PORCINE/PF 5,000 UNIT/0.5 ML SYRINGE SQ SCH ×2 (09:20→20:19)
[2023-02-08] MEDS: METOPROLOL TARTRATE 25 MG TAB PO SCH ×2 (09:21→20:28)
--- NOTE | 2023-02-08 09:35 | US ---
EXAMINATION TYPE: US kidneys/renal and bladder DATE OF EXAM: 02/08/2023 COMPARISON: CT 01/27/2023 CLINICAL HISTORY: Oliguria. 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 1.2 x 1.2 x 1.3cm. Right Kidney: Perinephric fluid visualized. Left Kidney: wnl Bladder: Not visualized Bilateral Jets seen: No IMPRESSION: Normal retroperitoneal ultrasound.
--- NOTE | 2023-02-08 10:00 | P.PN ---
Subjective Progress Note Date: 02/08/23 Principal diagnosis: GI blood Patient was transferred to the ICU yesterday afternoon. Reason for transfer was shortness of breath. Remains on BiPAP. Patient had 5 loose stools overnight. These were nonbloody. No further blood from the oropharynx. Denies pain. Objective - Vital Signs Vital signs: Vital Signs Temp 96.8 F L 02/08/23 08:00 Pulse 89 02/08/23 09:00 Resp 19 02/08/23 09:00 BP 108/47 02/08/23 09:00 Pulse Ox 92 L 02/08/23 09:00 FiO2 80 02/08/23 09:00 Intake & Output 02/07/23 02/08/23 02/08/23 18:59 06:59 18:59 Intake Total 1245.774 955.127 352.452 Output Total 500 327 96 Balance 745.774 628.127 256.452 Weight 85.729 kg Intake: IV 840 240 .9 10cc/hr 110 30 Aztreonam 2 gm In Sodium 100 Chloride 0.9% 100 ml @ 33 .3 mls/hr IVPB Q8H [facility] Rx #:[id number] Invasive Line 4 30 10 Magnesium Sulfate-D5w Pmx 100 1 gm In Dextrose/Water 1 100ml.bag @ 100 mls/hr IVPB ONCE ONE Rx#: [id number] Potassium Chloride 10 meq 100 100 In Water For Injection 1 100ml.bag @ 100 mls/hr IVPB Q1H [facility] Rx#: [id number] Vancomycin 1,500 mg In 500 Sodium Chloride 0.9% 500 ml 500 ml @ 167 mls/hr IVPB Q12H [facility] Rx#: [id number] Intake, IV Titration 817.774 115.127 112.452 Amount Aztreonam 2 gm In Sodium 200 Chloride 0.9% 100 ml @ 33 .3 mls/hr IVPB Q8H [facility] Rx #:[id number] Furosemide 100 mg In 20 Sodium Chloride 0.9% 90 ml @ 10 MG/HR 10 mls/hr IV .Q10H [facility] Rx#: [id number] IV Fluid Continuation 1, 30 000 ml @ 0 mls/hr IV .STK -MED ONE Rx#:[id number] Lactated Ringers 1,000 ml 40 @ 20 mls/hr IV .Q24H [facility] Rx#:[id number] Norepinephrine 8 mg In 47.774 115.127 92.452 Sodium Chloride 0.9% 250 ml @ 0.03 MCG/KG/MIN 4. 977 mls/hr IV .Q24H [facility] Rx#:[id number] Vancomycin 1,500 mg In 500 Sodium Chloride 0.9% 500 ml 500 ml @ 167 mls/hr IVPB Q12H [facility] Rx#: [id number] Oral 118 Blood Product 310 Rc As-1 Unit 310 [id number] Output: Urine 500 325 96 Stool 2 Other: Voiding Method Indwelling Catheter Indwelling Catheter # Bowel Movements 1 5 - Exam Abdomen: Soft, nontender, nondistended - Labs CBC & Chem 7: 02/08/23 04:01 02/08/23 04:01 Labs: Abnormal Lab Results - Last 24 Hours (Table) 02/05/23 02/07/23 02/07/23 Range/Units 12:34 07:29 11:35 RBC (3.80-5.40) m/uL Hgb (11.4-16.0) gm/dL Hct (34.0-46.0) % MCV (80.0-100.0) fL RDW (11.5-15.5) % Plt Count (150-450) k/uL Blast Cells % 2 H* % Lymphocytes # (Manual) 0.30 L (1.0-4.8) k/uL Eosinophils # (Manual) (0-0.7) k/uL Blast Cells # (Man) 0.12 H (0) k/uL ABG pCO2 (35-45) mmHg ABG pO2 (83-108) mmHg Chloride (98-107) mmol/L Carbon Dioxide (22-30) mmol/L BUN (7-17) mg/dL Creatinine (0.52-1.04) mg/dL Glucose (74-99) mg/dL POC Glucose (mg/dL) 45 L (70-110) mg/dL Calcium (8.4-10.2) mg/dL AST (14-36) U/L Alkaline Phosphatase (38-126) U/L Total Protein (6.3-8.2) g/dL Albumin (3.5-5.0) g/dL Urine Appearance (Clear) Urine Protein (Negative) Urine Ketones (Negative) Ur Leukocyte Esterase (Negative) Amorphous Sediment (None) /hpf Urine Bacteria (None) /hpf Hyaline Casts (0-2) /lpf Urine Mucus (None) /hpf Crossmatch See Detail 02/07/23 02/07/23 02/07/23 Range/Units 11:36 13:15 14:05 RBC 2.60 L (3.80-5.40) m/uL Hgb 6.6 L* (11.4-16.0) gm/dL Hct 20.9 L (34.0-46.0) % MCV (80.0-100.0) fL RDW 24.3 H (11.5-15.5) % Plt Count 61 L (150-450) k/uL Blast Cells % 2 H* % Lymphocytes # (Manual) 0.50 L (1.0-4.8) k/uL Eosinophils # (Manual) (0-0.7) k/uL Blast Cells # (Man) 0.11 H (0) k/uL ABG pCO2 (35-45) mmHg ABG pO2 (83-108) mmHg Chloride (98-107) mmol/L Carbon Dioxide (22-30) mmol/L BUN (7-17) mg/dL Creatinine (0.52-1.04) mg/dL Glucose (74-99) mg/dL POC Glucose (mg/dL) 46 L (70-110) mg/dL Calcium (8.4-10.2) mg/dL AST (14-36) U/L Alkaline Phosphatase (38-126) U/L Total Protein (6.3-8.2) g/dL Albumin (3.5-5.0) g/dL Urine Appearance Cloudy H (Clear) Urine Protein Trace H (Negative) Urine Ketones 1+ H (Negative) Ur Leukocyte Esterase Small H (Negative) Amorphous Sediment Rare H (None) /hpf Urine Bacteria Occasional H (None) /hpf Hyaline Casts 5 H (0-2) /lpf Urine Mucus Rare H (None) /hpf Crossmatch 02/07/23 02/07/23 02/07/23 Range/Units 14:12 14:22 17:42 RBC (3.80-5.40) m/uL Hgb (11.4-16.0) gm/dL Hct (34.0-46.0) % MCV (80.0-100.0) fL RDW (11.5-15.5) % Plt Count (150-450) k/uL Blast Cells % % Lymphocytes # (Manual) (1.0-4.8) k/uL Eosinophils # (Manual) (0-0.7) k/uL Blast Cells # (Man) (0) k/uL ABG pCO2 (35-45) mmHg ABG pO2 82 L (83-108) mmHg Chloride (98-107) mmol/L Carbon Dioxide (22-30) mmol/L BUN (7-17) mg/dL Creatinine (0.52-1.04) mg/dL Glucose (74-99) mg/dL POC Glucose (mg/dL) 52 L 116 H (70-110) mg/dL Calcium (8.4-10.2) mg/dL AST (14-36) U/L Alkaline Phosphatase (38-126) U/L Total Protein (6.3-8.2) g/dL Albumin (3.5-5.0) g/dL Urine Appearance (Clear) Urine Protein (Negative) Urine Ketones (Negative) Ur Leukocyte Esterase (Negative) Amorphous Sediment (None) /hpf Urine Bacteria (None) /hpf Hyaline Casts (0-2) /lpf Urine Mucus (None) /hpf Crossmatch 02/07/23 02/07/23 02/07/23 Range/Units 18:03 19:48 22:21 RBC 3.02 L (3.80-5.40) m/uL Hgb 7.6 L (11.4-16.0) gm/dL Hct 24.4 L (34.0-46.0) % MCV (80.0-100.0) fL RDW 23.4 H (11.5-15.5) % Plt Count 70 L (150-450) k/uL Blast Cells % % Lymphocytes # (Manual) (1.0-4.8) k/uL Eosinophils # (Manual) (0-0.7) k/uL Blast Cells # (Man) (0) k/uL ABG pCO2 (35-45) mmHg ABG pO2 (83-108) mmHg Chloride (98-107) mmol/L Carbon Dioxide (22-30) mmol/L BUN (7-17) mg/dL Creatinine (0.52-1.04) mg/dL Glucose (74-99) mg/dL POC Glucose (mg/dL) 124 H 129 H (70-110) mg/dL Calcium (8.4-10.2) mg/dL AST (14-36) U/L Alkaline Phosphatase (38-126) U/L Total Protein (6.3-8.2) g/dL Albumin (3.5-5.0) g/dL Urine Appearance (Clear) Urine Protein (Negative) Urine Ketones (Negative) Ur Leukocyte Esterase (Negative) Amorphous Sediment (None) /hpf Urine Bacteria (None) /hpf Hyaline Casts (0-2) /lpf Urine Mucus (None) /hpf Crossmatch 02/07/23 02/07/23 02/08/23 Range/Units 23:21 23:59 04:01 RBC 3.04 L 2.95 L (3.80-5.40) m/uL Hgb 7.8 L 7.5 L (11.4-16.0) gm/dL Hct 24.4 L 23.4 L (34.0-46.0) % MCV 79.2 L (80.0-100.0) fL RDW 23.4 H 23.3 H (11.5-15.5) % Plt Count 70 L 75 L (150-450) k/uL Blast Cells % 1 H* % Lymphocytes # (Manual) 0.90 L 0.61 L (1.0-4.8) k/uL Eosinophils # (Manual) 0.82 H (0-0.7) k/uL Blast Cells # (Man) 0.09 H (0) k/uL ABG pCO2 (35-45) mmHg ABG pO2 (83-108) mmHg Chloride (98-107) mmol/L Carbon Dioxide (22-30) mmol/L BUN (7-17) mg/dL Creatinine (0.52-1.04) mg/dL Glucose (74-99) mg/dL POC Glucose (mg/dL) 146 H (70-110) mg/dL Calcium (8.4-10.2) mg/dL AST (14-36) U/L Alkaline Phosphatase (38-126) U/L Total Protein (6.3-8.2) g/dL Albumin (3.5-5.0) g/dL Urine Appearance (Clear) Urine Protein (Negative) Urine Ketones (Negative) Ur Leukocyte Esterase (Negative) Amorphous Sediment (None) /hpf Urine Bacteria (None) /hpf Hyaline Casts (0-2) /lpf Urine Mucus (None) /hpf Crossmatch 02/08/23 02/08/23 02/08/23 Range/Units 04:01 05:33 06:00 RBC (3.80-5.40) m/uL Hgb (11.4-16.0) gm/dL Hct (34.0-46.0) % MCV (80.0-100.0) fL RDW (11.5-15.5) % Plt Count (150-450) k/uL Blast Cells % % Lymphocytes # (Manual) (1.0-4.8) k/uL Eosinophils # (Manual) (0-0.7) k/uL Blast Cells # (Man) (0) k/uL ABG pCO2 33 L (35-45) mmHg ABG pO2 74 L (83-108) mmHg Chloride 109 H (98-107) mmol/L Carbon Dioxide 19 L (22-30) mmol/L BUN 68 H (7-17) mg/dL Creatinine 1.24 H (0.52-1.04) mg/dL Glucose 129 H (74-99) mg/dL POC Glucose (mg/dL) 148 H (70-110) mg/dL Calcium 6.5 L (8.4-10.2) mg/dL AST 53 H (14-36) U/L Alkaline Phosphatase 222 H (38-126) U/L Total Protein 4.4 L (6.3-8.2) g/dL Albumin 1.7 L (3.5-5.0) g/dL Urine Appearance (Clear) Urine Protein (Negative) Urine Ketones (Negative) Ur Leukocyte Esterase (Negative) Amorphous Sediment (None) /hpf Urine Bacteria (None) /hpf Hyaline Casts (0-2) /lpf Urine Mucus (None) /hpf Crossmatch 02/08/23 Range/Units 07:07 RBC (3.80-5.40) m/uL Hgb (11.4-16.0) gm/dL Hct (34.0-46.0) % MCV (80.0-100.0) fL RDW (11.5-15.5) % Plt Count (150-450) k/uL Blast Cells % % Lymphocytes # (Manual) (1.0-4.8) k/uL Eosinophils # (Manual) (0-0.7) k/uL Blast Cells # (Man) (0) k/uL ABG pCO2 (35-45) mmHg ABG pO2 (83-108) mmHg Chloride (98-107) mmol/L Carbon Dioxide (22-30) mmol/L BUN (7-17) mg/dL Creatinine (0.52-1.04) mg/dL Glucose (74-99) mg/dL POC Glucose (mg/dL) 197 H (70-110) mg/dL Calcium (8.4-10.2) mg/dL AST (14-36) U/L Alkaline Phosphatase (38-126) U/L Total Protein (6.3-8.2) g/dL Albumin (3.5-5.0) g/dL Urine Appearance (Clear) Urine Protein (Negative) Urine Ketones (Negative) Ur Leukocyte Esterase (Negative) Amorphous Sediment (None) /hpf Urine Bacteria (None) /hpf Hyaline Casts (0-2) /lpf Urine Mucus (None) /hpf Crossmatch Microbiology - Last 24 Hours (Table) 02/01/23 11:32 Blood Culture - Final Blood No Growth after 144 hours Assessment and Plan (1) Rectal bleeding Narrative/Plan: Patient without further bleeding. Hemoglobin stable at 7.5. Continue pulmonary workup and optimization. We'll sign off. Please call if needed. Current Visit: Yes Status: Acute Priority: High Code(s): K62.5 - HEMORRHAGE OF ANUS AND RECTUM SNOMED Code(s): 78021631
[2023-02-08] MEDS ORDERED: VANCOMYCIN TROUGH DUE 1 EACH MISC MISCELLANE ONE (11:00)
--- NOTE | 2023-02-08 11:13 | P.PN ---
Subjective Progress Note Date: 02/08/23 Principal diagnosis: Shortness of breath, low saturations. Pulmonary consult dated 02/03/2023. A 72-year-old female who was seen initially in the emergency department on January 22, complaining of rectal bleeding. The patient recently had an EGD and colonoscopy, prior to her admission, about 3 weeks prior. The patient was asked to come to the emergency department, by her surgeon, for her new onset rectal bleeding. The patient does have a history of atrial fibrillation for which she takes a blood thinner. She apparently denied other complaints, although today when I talked her, she states that she's had shortness of breath all along. It has gotten worse so. We will asked to see her, for a new abnormality on chest x-ray, as well as increasing oxygen requirements. On January 22, the patient have a colonoscopy, which did not reveal any active GI bleeding. A chest x-ray on January 28 showed small bilateral pleural effusions. The x-ray on February 02 showed evidence of focal airspace disease involving the left midlung. This was a new finding. Currently, the patient's on 6 L of oxygen, with a saturation of 94%. She is mildly febrile with temperature 100.1F. Heart rate 92 bpm. Respiratory rate 22, and blood pressure 90/50. White count 14.1, hemoglobin 9.4, hematocrit 30.4, and platelet count 224,000. Sodium 135, potassium 4.5, chlorides 102, CO2 24, BUN 29, and creatinine 0.71. Albumin is 2.6. N-terminal proBNP is elevated at 11,000. Blood and sputum sampling is negative. The patient is on Flagyl and vancomycin and aztreonam as per infectious diseases. Progress note dated 02/04/2023. 72-year-old female seen for the first time, yesterday in consultation. His been here in the hospital for nearly 2 weeks, and we're only consulted yesterday. Anyway, we are consulted because of increasing oxygen requirements. Last night, the patient was on BiPAP. Settings included 12/5 and 80%. She's getting TPN at 65 mL an hour, and saline at 10 mL an hour. She was given some diuretic by my nurse practitioner. She's currently on 15 L high flow oxygen. She states that she is feeling better. Currently labs include a white count of 8.6, hemoglobin 7.7, hematocrit 24.4, and platelet count of 99,000. Sodium 135, potassium 4, chlorides 105, CO2 21, anion gap 9, BUN 34, and creatinine 0.8. Albumin is 2. Chest x-ray suggests some pulmonary edema, which is slightly worse compared to the prior evaluation. There is some clearing of consolidation in the left pulmonary hilar area. The most recent N-terminal proBNP is 11,000. Progress note dated 02/05/2023. 72-year-old female seen again in room 383. The patient was seen in consultation 2 days ago. Please see my note above. Currently, the patient is on 15 L high flow oxygen. Clinically though, she feels better. Her chest x-ray shows evidence of CHF. She is not receiving any IV fluids. White count 7.7, hemoglobin 6.7, hematocrit 21.4, and platelet count 94,000. Sodium 134, potassium 3.9, chlorides 104, CO2 22, BUN 42, creatinine 0.75. Albumin is 1.8. The chest x-ray from February 04 has been previously evaluated. Progress note dated 02/06/2023. 72-year-old female seen again today in room 383. The patient was seen in consultation 3 days ago. Currently, the patient is on BiPAP, with settings of 12/5 and 70%. She's getting TPN as well. The patient's all overall condition has remained about the same, or slightly worse. Yesterday, she was on 15 L high flow oxygen. Today she's currently on BiPAP. I did have the nurse give the patient some additional diuretic yesterday. White count 8.1, hemoglobin 7.5, hematocrit 24.5, and platelet count 79,000. Sodium 137, potassium 3.9, chlorides 106, CO2 21, anion gap normal, BUN 46, with a creatinine 0.82. N- terminal proBNP is elevated at 6950. Microbiologic sampling has been negative thus far. Chest x-ray shows evidence of fluid overload/pulmonary edema, bilateral pleural effusions. Progress note dated 02/07/2023. 72-year-old female seen today in room 383. The patient is currently now BiPAP, with settings of 12/5 and 80%. She's receiving vancomycin and aztreonam. Chest x-rays consistent with either fluid overload/CHF, pneumonia. Because of her worsening respiratory status, I've chosen to move the patient down to the intensive care unit. White count 6, hemoglobin 8, hematocrit 26.7, and platelet count 73,000. Sodium 137, potassium 3.9, chlorides 106, CO2 20, BUN 56, and creatinine 0.99. The patient had a bone marrow biopsy on February 03. The results are pending. Blood and sputum samples are negative. Chest x-ray shows bilateral small effusions, and either pneumonia, or atypical pulmonary edema. Progress note dated 02/08/2023. 72-year-old female seen today in room 255. She was transferred to the intensive care unit yesterday for worsening respiratory status. She remains on BiPAP with settings of 12/5 and 80%. She is on a Lasix drip at 10 mg an hour, saline IV at 10 mL an hour, and norepinephrine at 7.7 mcg/m. Microbiologic studies have thus far been negative. The patient remains on vancomycin and aztreonam. White count 8.7, hemoglobin 7.5, hematocrit 23.4, with a platelet count of 75,000. Sodium 138, potassium 3.9, chlorides 109, CO2 19, BUN 68, creatinine 1.24. Chest x-ray, appears to show a pattern consistent with congestive heart failure. Objective - Vital Signs Vital signs: Vital Signs Temp 96.8 F L 02/08/23 08:00 Pulse 89 02/08/23 11:00 Resp 22 02/08/23 11:00 BP 121/61 02/08/23 11:00 Pulse Ox 93 L 02/08/23 11:00 FiO2 80 02/08/23 11:00 Intake & Output 02/07/23 02/08/23 02/08/23 18:59 06:59 18:59 Intake Total 1245.774 955.127 469.716 Output Total 500 327 168 Balance 745.774 628.127 301.716 Weight 85.729 kg Intake: IV 840 293 .9 10cc/hr 110 50 Aztreonam 2 gm In Sodium 100 33 Chloride 0.9% 100 ml @ 33 .3 mls/hr IVPB Q8H [facility] Rx #:[id number] Invasive Line 4 30 10 Magnesium Sulfate-D5w Pmx 100 1 gm In Dextrose/Water 1 100ml.bag @ 100 mls/hr IVPB ONCE ONE Rx#: [id number] Potassium Chloride 10 meq 100 100 In Water For Injection 1 100ml.bag @ 100 mls/hr IVPB Q1H [facility] Rx#: [id number] Vancomycin 1,500 mg In 500 Sodium Chloride 0.9% 500 ml 500 ml @ 167 mls/hr IVPB Q12H [facility] Rx#: [id number] Intake, IV Titration 817.774 115.127 176.716 Amount Aztreonam 2 gm In Sodium 200 Chloride 0.9% 100 ml @ 33 .3 mls/hr IVPB Q8H [facility] Rx #:[id number] Furosemide 100 mg In 40 Sodium Chloride 0.9% 90 ml @ 10 MG/HR 10 mls/hr IV .Q10H [facility] Rx#: [id number] IV Fluid Continuation 1, 30 000 ml @ 0 mls/hr IV .K -[facility] Rx#:[id number] Lactated Ringers 1,000 ml 40 @ 20 mls/hr IV .Q24H [facility] Rx#:[id number] Norepinephrine 8 mg In 47.774 115.127 136.716 Sodium Chloride 0.9% 250 ml @ 0.03 MCG/KG/MIN 4. 977 mls/hr IV .Q24H [facility] Rx#:[id number] Vancomycin 1,500 mg In 500 Sodium Chloride 0.9% 500 ml 500 ml @ 167 mls/hr IVPB Q12H [facility] Rx#: [id number] Oral 118 Blood Product 310 Rc As-1 Unit 310 [id number] Output: Urine 500 325 168 Stool 2 Other: Voiding Method Indwelling Catheter Indwelling Catheter Indwelling Catheter # Bowel Movements 1 5 - Exam No acute distress, oriented 3. Currently on BiPAP. HEENT examination is grossly unremarkable. Neck supple. Full range of motion. No adenopathy thyromegaly or neck vein distention. Cardiovascular examination reveals regular rhythm rate. S1-S2 normal. No S3 or S4. No discernible murmur noted. Heart sounds are distant. Heart rate 87 bpm. Lungs reveal scattered bilateral rhonchi, and crackles. Breath sounds equal. No wheezes. Saturations are 93 % on BiPAP. Abdomen obese, but soft. Extremities are intact. No cyanosis or clubbing. Mild edema noted. Skin is without rash or lesion. Neurologic examination is brief but nonfocal. - Labs CBC & Chem 7: 02/08/23 04:01 02/08/23 04:01 Labs: Abnormal Lab Results - Last 24 Hours (Table) 02/05/23 02/07/23 02/07/23 Range/Units 12:34 11:35 11:36 RBC (3.80-5.40) m/uL Hgb (11.4-16.0) gm/dL Hct (34.0-46.0) % MCV (80.0-100.0) fL RDW (11.5-15.5) % Plt Count (150-450) k/uL Blast Cells % % Lymphocytes # (Manual) (1.0-4.8) k/uL Eosinophils # (Manual) (0-0.7) k/uL Blast Cells # (Man) (0) k/uL ABG pCO2 (35-45) mmHg ABG pO2 (83-108) mmHg Chloride (98-107) mmol/L Carbon Dioxide (22-30) mmol/L BUN (7-17) mg/dL Creatinine (0.52-1.04) mg/dL Glucose (74-99) mg/dL POC Glucose (mg/dL) 45 L 46 L (70-110) mg/dL Calcium (8.4-10.2) mg/dL AST (14-36) U/L Alkaline Phosphatase (38-126) U/L Total Protein (6.3-8.2) g/dL Albumin (3.5-5.0) g/dL Urine Appearance (Clear) Urine Protein (Negative) Urine Ketones (Negative) Ur Leukocyte Esterase (Negative) Amorphous Sediment (None) /hpf Urine Bacteria (None) /hpf Hyaline Casts (0-2) /lpf Urine Mucus (None) /hpf Crossmatch See Detail 02/07/23 02/07/23 02/07/23 Range/Units 13:15 14:05 14:12 RBC 2.60 L (3.80-5.40) m/uL Hgb 6.6 L* (11.4-16.0) gm/dL Hct 20.9 L (34.0-46.0) % MCV (80.0-100.0) fL RDW 24.3 H (11.5-15.5) % Plt Count 61 L (150-450) k/uL Blast Cells % 2 H* % Lymphocytes # (Manual) 0.50 L (1.0-4.8) k/uL Eosinophils # (Manual) (0-0.7) k/uL Blast Cells # (Man) 0.11 H (0) k/uL ABG pCO2 (35-45) mmHg ABG pO2 (83-108) mmHg Chloride (98-107) mmol/L Carbon Dioxide (22-30) mmol/L BUN (7-17) mg/dL Creatinine (0.52-1.04) mg/dL Glucose (74-99) mg/dL POC Glucose (mg/dL) 52 L (70-110) mg/dL Calcium (8.4-10.2) mg/dL AST (14-36) U/L Alkaline Phosphatase (38-126) U/L Total Protein (6.3-8.2) g/dL Albumin (3.5-5.0) g/dL Urine Appearance Cloudy H (Clear) Urine Protein Trace H (Negative) Urine Ketones 1+ H (Negative) Ur Leukocyte Esterase Small H (Negative) Amorphous Sediment Rare H (None) /hpf Urine Bacteria Occasional H (None) /hpf Hyaline Casts 5 H (0-2) /lpf Urine Mucus Rare H (None) /hpf Crossmatch 02/07/23 02/07/23 02/07/23 Range/Units 14:22 17:42 18:03 RBC 3.02 L (3.80-5.40) m/uL Hgb 7.6 L (11.4-16.0) gm/dL Hct 24.4 L (34.0-46.0) % MCV (80.0-100.0) fL RDW 23.4 H (11.5-15.5) % Plt Count 70 L (150-450) k/uL Blast Cells % % Lymphocytes # (Manual) (1.0-4.8) k/uL Eosinophils # (Manual) (0-0.7) k/uL Blast Cells # (Man) (0) k/uL ABG pCO2 (35-45) mmHg ABG pO2 82 L (83-108) mmHg Chloride (98-107) mmol/L Carbon Dioxide (22-30) mmol/L BUN (7-17) mg/dL Creatinine (0.52-1.04) mg/dL Glucose (74-99) mg/dL POC Glucose (mg/dL) 116 H (70-110) mg/dL Calcium (8.4-10.2) mg/dL AST (14-36) U/L Alkaline Phosphatase (38-126) U/L Total Protein (6.3-8.2) g/dL Albumin (3.5-5.0) g/dL Urine Appearance (Clear) Urine Protein (Negative) Urine Ketones (Negative) Ur Leukocyte Esterase (Negative) Amorphous Sediment (None) /hpf Urine Bacteria (None) /hpf Hyaline Casts (0-2) /lpf Urine Mucus (None) /hpf Crossmatch 02/07/23 02/07/23 02/07/23 Range/Units 19:48 22:21 23:21 RBC 3.04 L (3.80-5.40) m/uL Hgb 7.8 L (11.4-16.0) gm/dL Hct 24.4 L (34.0-46.0) % MCV (80.0-100.0) fL RDW 23.4 H (11.5-15.5) % Plt Count 70 L (150-450) k/uL Blast Cells % % Lymphocytes # (Manual) 0.90 L (1.0-4.8) k/uL Eosinophils # (Manual) 0.82 H (0-0.7) k/uL Blast Cells # (Man) (0) k/uL ABG pCO2 (35-45) mmHg ABG pO2 (83-108) mmHg Chloride (98-107) mmol/L Carbon Dioxide (22-30) mmol/L BUN (7-17) mg/dL Creatinine (0.52-1.04) mg/dL Glucose (74-99) mg/dL POC Glucose (mg/dL) 124 H 129 H (70-110) mg/dL Calcium (8.4-10.2) mg/dL AST (14-36) U/L Alkaline Phosphatase (38-126) U/L Total Protein (6.3-8.2) g/dL Albumin (3.5-5.0) g/dL Urine Appearance (Clear) Urine Protein (Negative) Urine Ketones (Negative) Ur Leukocyte Esterase (Negative) Amorphous Sediment (None) /hpf Urine Bacteria (None) /hpf Hyaline Casts (0-2) /lpf Urine Mucus (None) /hpf Crossmatch 02/07/23 02/08/23 02/08/23 Range/Units 23:59 04:01 04:01 RBC 2.95 L (3.80-5.40) m/uL Hgb 7.5 L (11.4-16.0) gm/dL Hct 23.4 L (34.0-46.0) % MCV 79.2 L (80.0-100.0) fL RDW 23.3 H (11.5-15.5) % Plt Count 75 L (150-450) k/uL Blast Cells % 1 H* % Lymphocytes # (Manual) 0.61 L (1.0-4.8) k/uL Eosinophils # (Manual) (0-0.7) k/uL Blast Cells # (Man) 0.09 H (0) k/uL ABG pCO2 (35-45) mmHg ABG pO2 (83-108) mmHg Chloride 109 H (98-107) mmol/L Carbon Dioxide 19 L (22-30) mmol/L BUN 68 H (7-17) mg/dL Creatinine 1.24 H (0.52-1.04) mg/dL Glucose 129 H (74-99) mg/dL POC Glucose (mg/dL) 146 H (70-110) mg/dL Calcium 6.5 L (8.4-10.2) mg/dL AST 53 H (14-36) U/L Alkaline Phosphatase 222 H (38-126) U/L Total Protein 4.4 L (6.3-8.2) g/dL Albumin 1.7 L (3.5-5.0) g/dL Urine Appearance (Clear) Urine Protein (Negative) Urine Ketones (Negative) Ur Leukocyte Esterase (Negative) Amorphous Sediment (None) /hpf Urine Bacteria (None) /hpf Hyaline Casts (0-2) /lpf Urine Mucus (None) /hpf Crossmatch 02/08/23 02/08/23 02/08/23 Range/Units 05:33 06:00 07:07 RBC (3.80-5.40) m/uL Hgb (11.4-16.0) gm/dL Hct (34.0-46.0) % MCV (80.0-100.0) fL RDW (11.5-15.5) % Plt Count (150-450) k/uL Blast Cells % % Lymphocytes # (Manual) (1.0-4.8) k/uL Eosinophils # (Manual) (0-0.7) k/uL Blast Cells # (Man) (0) k/uL ABG pCO2 33 L (35-45) mmHg ABG pO2 74 L (83-108) mmHg Chloride (98-107) mmol/L Carbon Dioxide (22-30) mmol/L BUN (7-17) mg/dL Creatinine (0.52-1.04) mg/dL Glucose (74-99) mg/dL POC Glucose (mg/dL) 148 H 197 H (70-110) mg/dL Calcium (8.4-10.2) mg/dL AST (14-36) U/L Alkaline Phosphatase (38-126) U/L Total Protein (6.3-8.2) g/dL Albumin (3.5-5.0) g/dL Urine Appearance (Clear) Urine Protein (Negative) Urine Ketones (Negative) Ur Leukocyte Esterase (Negative) Amorphous Sediment (None) /hpf Urine Bacteria (None) /hpf Hyaline Casts (0-2) /lpf Urine Mucus (None) /hpf Crossmatch Microbiology - Last 24 Hours (Table) 02/01/23 11:32 Blood Culture - Final Blood No Growth after 144 hours Assessment and Plan Assessment: Acute hypoxemic respiratory failure, with progressive shortness of breath, and worsening saturations, likely multifactorial, in part related to fluid overload, as well as possible pneumonia, left midlung and left perihilar region. Initial admission to hospital for GI bleeding, with negative colonoscopy. Transcatheter aortic valve replacement, March 2022. History of atrial fibrillation. History of CAD. History of CVA. History of COPD, secondary to ongoing tobacco use with nicotine addiction. Diabetes mellitus. GERD. Hyperlipidemia. History of hypertension. History of obstructive sleep apnea syndrome. History of cervical cancer. Multiple other medical problems and comorbidities. Plan: Plan dated 02/03/2023. Currently, the patient's on good antibiotics as per infectious diseases. This includes Flagyl, vancomycin, and aztreonam. Thus far, all microbiologic sampling has been negative. In addition, the patient's N-terminal proBNP is elevated, and she should be given some diuretic. If not already done, a pro- calcitonin level should be ordered. We will continue to follow the patient and make recommendations along the way. Prognosis is guarded. Medications are adjusted accordingly. Labs x-rays and medications are all reviewed. Plan dated 02/04/2023. Iinitially gave the patient some Lasix last night for worsening hypoxemia. He also ordered some BiPAP with settings of 12/5 and 80%. She appears to be feeling a bit better today. Currently on 15 L high flow oxygen. We will continue to follow the patient carefully. She should get intermittent doses of diuretic. She's currently on antibiotic for possible pneumonia. Her pro- calcitonin level was elevated. Plan dated 02/05/2023. The patient is seen today, in room 383. She remains on high flow nasal O2. She remains on antibiotics as per infectious diseases. She is also receiving Lasix, 40 mg IV push twice a day. She also is on breathing treatments including formoterol, budesonide, and albuterol sulfate mixed with ipratropium bromide. We will continue to follow make recommendations along the way. Prognosis is guarded. Plan dated 02/06/2023. The patient is currently on BiPAP, with settings of 12/5 and 70%. The patient's also getting TPN. Labs, x-rays, medications are reviewed. The most recent chest x-ray, done today, shows evidence of fluid overload/CHF, with bilateral pleural effusions. We will continue to follow. Her N-terminal proBNP was also elevated. The patient may warrant transferred to the intensive care unit. Prognosis is guarded. We will continue to follow the patient make recommendations along the way. Plan dated 02/07/2023. The patient will be transferred to the intensive care unit. The patient's currently on BiPAP, with settings of 12/5 and 80%. Her oxygen requirements have continued all. Her chest x-ray shows diffuse bilateral infiltrates, which could be consistent with either pneumonia and/or fluid overload. The patient continues in good antibiotics. Additional recommendations and suggestions are forthcoming. We will continue to follow the patient make recommendations along the way. Prognosis is certainly guarded. We did speak to surgery about this patient. Plan dated 02/08/2023. The patient was transferred down to the intensive care unit yesterday, because of hypotension, and worsening respiratory status. She remains on BiPAP at 12/5 and 80%. The patient's currently on norepinephrine at 7.7 mcg/m. She remains on vancomycin and aztreonam. Microbiologic studies have been negative. Chest x-rays consistent with either fluid overload, and/or pneumonia. We will continue to follow and make recommendations along the way. Labs, x-rays, and medications are all reviewed. Time with Patient: Greater than 30
--- NOTE | 2023-02-08 11:23 | P.PN ---
Subjective Patient is seen for follow-up for acute kidney injury and hyponatremia. Renal function had improved with correction of hyponatremia as well however yesterday patient was transferred to ICU due to acute hypoxic respiratory failure secondary to volume overload and pneumonia needing BiPAP. Blood pressure had dropped and patient is currently on pressors. Urine output has also been low overnight with no improvement in urine output with 80 mg of IV Lasix. This morning patient was started on Lasix drip. She remains on BiPAP. Urine output remains at 20-25 mL per hour Renal replacement therapy discussed with the patient and patient is agreeable if she continues to have poor urine output with worsening volume status. Objective - Vital Signs Vital signs: Vital Signs Temp 96.8 F L 02/08/23 08:00 Pulse 89 02/08/23 11:00 Resp 22 02/08/23 11:00 BP 121/61 02/08/23 11:00 Pulse Ox 93 L 02/08/23 11:00 FiO2 80 02/08/23 11:00 Intake & Output 02/07/23 02/08/23 02/08/23 18:59 06:59 18:59 Intake Total 1245.774 955.127 469.716 Output Total 500 327 168 Balance 745.774 628.127 301.716 Weight 85.729 kg Intake: IV 840 293 .9 10cc/hr 110 50 Aztreonam 2 gm In Sodium 100 33 Chloride 0.9% 100 ml @ 33 .3 mls/hr IVPB Q8H [facility] Rx #:[id number] Invasive Line 4 30 10 Magnesium Sulfate-D5w Pmx 100 1 gm In Dextrose/Water 1 100ml.bag @ 100 mls/hr IVPB ONCE ONE Rx#: [id number] Potassium Chloride 10 meq 100 100 In Water For Injection 1 100ml.bag @ 100 mls/hr IVPB Q1H [facility] Rx#: [id number] Vancomycin 1,500 mg In 500 Sodium Chloride 0.9% 500 ml 500 ml @ 167 mls/hr IVPB Q12H [facility] Rx#: [id number] Intake, IV Titration 817.774 115.127 176.716 Amount Aztreonam 2 gm In Sodium 200 Chloride 0.9% 100 ml @ 33 .3 mls/hr IVPB Q8H [facility] Rx #:[id number] Furosemide 100 mg In 40 Sodium Chloride 0.9% 90 ml @ 10 MG/HR 10 mls/hr IV .Q10H [facility] Rx#: [id number] IV Fluid Continuation 1, 30 000 ml @ 0 mls/hr IV .STK -MED ONE Rx#:[id number] Lactated Ringers 1,000 ml 40 @ 20 mls/hr IV .Q24H [facility] Rx#:[id number] Norepinephrine 8 mg In 47.774 115.127 136.716 Sodium Chloride 0.9% 250 ml @ 0.03 MCG/KG/MIN 4. 977 mls/hr IV .Q24H [facility] Rx#:[id number] Vancomycin 1,500 mg In 500 Sodium Chloride 0.9% 500 ml 500 ml @ 167 mls/hr IVPB Q12H [facility] Rx#: [id number] Oral 118 Blood Product 310 Rc As-1 Unit 310 [id number] Output: Urine 500 325 168 Stool 2 Other: Voiding Method Indwelling Catheter Indwelling Catheter Indwelling Catheter # Bowel Movements 1 5 - Exam Patient is awake, no acute distress Currently on BiPAP Examination of the heart S1 and S2 Examination the lungs decreased breath sounds at the bases with basilar crackles heard Abdomen is soft obese Examination of lower extremity shows edema 1+ bilaterally - Labs CBC & Chem 7: 02/08/23 04:01 02/08/23 04:01 Labs: Abnormal Lab Results - Last 24 Hours (Table) 02/05/23 02/07/23 02/07/23 Range/Units 12:34 11:35 11:36 RBC (3.80-5.40) m/uL Hgb (11.4-16.0) gm/dL Hct (34.0-46.0) % MCV (80.0-100.0) fL RDW (11.5-15.5) % Plt Count (150-450) k/uL Blast Cells % % Lymphocytes # (Manual) (1.0-4.8) k/uL Eosinophils # (Manual) (0-0.7) k/uL Blast Cells # (Man) (0) k/uL ABG pCO2 (35-45) mmHg ABG pO2 (83-108) mmHg Chloride (98-107) mmol/L Carbon Dioxide (22-30) mmol/L BUN (7-17) mg/dL Creatinine (0.52-1.04) mg/dL Glucose (74-99) mg/dL POC Glucose (mg/dL) 45 L 46 L (70-110) mg/dL Calcium (8.4-10.2) mg/dL AST (14-36) U/L Alkaline Phosphatase (38-126) U/L Total Protein (6.3-8.2) g/dL Albumin (3.5-5.0) g/dL Urine Appearance (Clear) Urine Protein (Negative) Urine Ketones (Negative) Ur Leukocyte Esterase (Negative) Amorphous Sediment (None) /hpf Urine Bacteria (None) /hpf Hyaline Casts (0-2) /lpf Urine Mucus (None) /hpf Crossmatch See Detail 02/07/23 02/07/23 02/07/23 Range/Units 13:15 14:05 14:12 RBC 2.60 L (3.80-5.40) m/uL Hgb 6.6 L* (11.4-16.0) gm/dL Hct 20.9 L (34.0-46.0) % MCV (80.0-100.0) fL RDW 24.3 H (11.5-15.5) % Plt Count 61 L (150-450) k/uL Blast Cells % 2 H* % Lymphocytes # (Manual) 0.50 L (1.0-4.8) k/uL Eosinophils # (Manual) (0-0.7) k/uL Blast Cells # (Man) 0.11 H (0) k/uL ABG pCO2 (35-45) mmHg ABG pO2 (83-108) mmHg Chloride (98-107) mmol/L Carbon Dioxide (22-30) mmol/L BUN (7-17) mg/dL Creatinine (0.52-1.04) mg/dL Glucose (74-99) mg/dL POC Glucose (mg/dL) 52 L (70-110) mg/dL Calcium (8.4-10.2) mg/dL AST (14-36) U/L Alkaline Phosphatase (38-126) U/L Total Protein (6.3-8.2) g/dL Albumin (3.5-5.0) g/dL Urine Appearance Cloudy H (Clear) Urine Protein Trace H (Negative) Urine Ketones 1+ H (Negative) Ur Leukocyte Esterase Small H (Negative) Amorphous Sediment Rare H (None) /hpf Urine Bacteria Occasional H (None) /hpf Hyaline Casts 5 H (0-2) /lpf Urine Mucus Rare H (None) /hpf Crossmatch 02/07/23 02/07/23 02/07/23 Range/Units 14:22 17:42 18:03 RBC 3.02 L (3.80-5.40) m/uL Hgb 7.6 L (11.4-16.0) gm/dL Hct 24.4 L (34.0-46.0) % MCV (80.0-100.0) fL RDW 23.4 H (11.5-15.5) % Plt Count 70 L (150-450) k/uL Blast Cells % % Lymphocytes # (Manual) (1.0-4.8) k/uL Eosinophils # (Manual) (0-0.7) k/uL Blast Cells # (Man) (0) k/uL ABG pCO2 (35-45) mmHg ABG pO2 82 L (83-108) mmHg Chloride (98-107) mmol/L Carbon Dioxide (22-30) mmol/L BUN (7-17) mg/dL Creatinine (0.52-1.04) mg/dL Glucose (74-99) mg/dL POC Glucose (mg/dL) 116 H (70-110) mg/dL Calcium (8.4-10.2) mg/dL AST (14-36) U/L Alkaline Phosphatase (38-126) U/L Total Protein (6.3-8.2) g/dL Albumin (3.5-5.0) g/dL Urine Appearance (Clear) Urine Protein (Negative) Urine Ketones (Negative) Ur Leukocyte Esterase (Negative) Amorphous Sediment (None) /hpf Urine Bacteria (None) /hpf Hyaline Casts (0-2) /lpf Urine Mucus (None) /hpf Crossmatch 02/07/23 02/07/23 02/07/23 Range/Units 19:48 22:21 23:21 RBC 3.04 L (3.80-5.40) m/uL Hgb 7.8 L (11.4-16.0) gm/dL Hct 24.4 L (34.0-46.0) % MCV (80.0-100.0) fL RDW 23.4 H (11.5-15.5) % Plt Count 70 L (150-450) k/uL Blast Cells % % Lymphocytes # (Manual) 0.90 L (1.0-4.8) k/uL Eosinophils # (Manual) 0.82 H (0-0.7) k/uL Blast Cells # (Man) (0) k/uL ABG pCO2 (35-45) mmHg ABG pO2 (83-108) mmHg Chloride (98-107) mmol/L Carbon Dioxide (22-30) mmol/L BUN (7-17) mg/dL Creatinine (0.52-1.04) mg/dL Glucose (74-99) mg/dL POC Glucose (mg/dL) 124 H 129 H (70-110) mg/dL Calcium (8.4-10.2) mg/dL AST (14-36) U/L Alkaline Phosphatase (38-126) U/L Total Protein (6.3-8.2) g/dL Albumin (3.5-5.0) g/dL Urine Appearance (Clear) Urine Protein (Negative) Urine Ketones (Negative) Ur Leukocyte Esterase (Negative) Amorphous Sediment (None) /hpf Urine Bacteria (None) /hpf Hyaline Casts (0-2) /lpf Urine Mucus (None) /hpf Crossmatch 02/07/23 02/08/23 02/08/23 Range/Units 23:59 04:01 04:01 RBC 2.95 L (3.80-5.40) m/uL Hgb 7.5 L (11.4-16.0) gm/dL Hct 23.4 L (34.0-46.0) % MCV 79.2 L (80.0-100.0) fL RDW 23.3 H (11.5-15.5) % Plt Count 75 L (150-450) k/uL Blast Cells % 1 H* % Lymphocytes # (Manual) 0.61 L (1.0-4.8) k/uL Eosinophils # (Manual) (0-0.7) k/uL Blast Cells # (Man) 0.09 H (0) k/uL ABG pCO2 (35-45) mmHg ABG pO2 (83-108) mmHg Chloride 109 H (98-107) mmol/L Carbon Dioxide 19 L (22-30) mmol/L BUN 68 H (7-17) mg/dL Creatinine 1.24 H (0.52-1.04) mg/dL Glucose 129 H (74-99) mg/dL POC Glucose (mg/dL) 146 H (70-110) mg/dL Calcium 6.5 L (8.4-10.2) mg/dL AST 53 H (14-36) U/L Alkaline Phosphatase 222 H (38-126) U/L Total Protein 4.4 L (6.3-8.2) g/dL Albumin 1.7 L (3.5-5.0) g/dL Urine Appearance (Clear) Urine Protein (Negative) Urine Ketones (Negative) Ur Leukocyte Esterase (Negative) Amorphous Sediment (None) /hpf Urine Bacteria (None) /hpf Hyaline Casts (0-2) /lpf Urine Mucus (None) /hpf Crossmatch 02/08/23 02/08/23 02/08/23 Range/Units 05:33 06:00 07:07 RBC (3.80-5.40) m/uL Hgb (11.4-16.0) gm/dL Hct (34.0-46.0) % MCV (80.0-100.0) fL RDW (11.5-15.5) % Plt Count (150-450) k/uL Blast Cells % % Lymphocytes # (Manual) (1.0-4.8) k/uL Eosinophils # (Manual) (0-0.7) k/uL Blast Cells # (Man) (0) k/uL ABG pCO2 33 L (35-45) mmHg ABG pO2 74 L (83-108) mmHg Chloride (98-107) mmol/L Carbon Dioxide (22-30) mmol/L BUN (7-17) mg/dL Creatinine (0.52-1.04) mg/dL Glucose (74-99) mg/dL POC Glucose (mg/dL) 148 H 197 H (70-110) mg/dL Calcium (8.4-10.2) mg/dL AST (14-36) U/L Alkaline Phosphatase (38-126) U/L Total Protein (6.3-8.2) g/dL Albumin (3.5-5.0) g/dL Urine Appearance (Clear) Urine Protein (Negative) Urine Ketones (Negative) Ur Leukocyte Esterase (Negative) Amorphous Sediment (None) /hpf Urine Bacteria (None) /hpf Hyaline Casts (0-2) /lpf Urine Mucus (None) /hpf Crossmatch Microbiology - Last 24 Hours (Table) 02/01/23 11:32 Blood Culture - Final Blood No Growth after 144 hours Assessment and Plan Assessment: 1. Acute kidney injury initially prerenal secondary to acute blood loss anemia and hypotension and IV contrast. Renal function had improved with creatinine down to 0.8 mg/dL. Serum creatinine has increased again with poor urine output secondary to hypotension. UA benign. No hydronephrosis noted on imaging. Currently maintained on Lasix drip 2. Acute GI bleed status post blood transfusion this admission. No active bleeding noted on colonoscopy. Hemoglobin 7.5 today. Hematology and surgery following. Underwent bone marrow aspiration this admission. Status post blood transfusions this admission. 3. Hyponatremia. Hypervolemic. Improved 4. Hypomagnesemia from GI losses and poor intake. Replaced. 5. Hypokalemia from poor intake and hypomagnesemia. Replaced. 6. Volume overload. Currently being diuresed. Started on Lasix drip this morning 7. Acute hypoxic respiratory failure maintained on BiPAP Plan: Continue Lasix drip Check echocardiogram Increase midodrine and continue to try and wean off levo fed Avoid nephrotoxic agents Patient will need renal replacement therapy if she continues to be oliguric with persistent volume overload and acute hypoxic respiratory failure.
--- NOTE | 2023-02-08 11:27 | P.PN ---
Subjective Progress Note Date: 02/08/23 This is a pleasant 72 years old female with multiple medical problems including Atrial Fibrillation, Coronary Artery Disease (CAD), Cancer, COPD, CVA/TIA, Diabetes Mellitus, GERD/Reflux, Hyperlipidemia, Hypertension, Pneumonia, Sleep Apnea/CPAP/BIPAP, Syncope she was discharged from this facility one month ago forpossible GI bleed, TIA, syncope and bronchitis. She was visiting her surgeon yesterday in the outpatient setting and she was referred to emergency room, Patient states that since last Thursday about one week ago she noticed she was not eating well and she had only one piece of pizza because of that. She started having blood per rectum, she will not stretch blood with clots filled the toilet about 3-4 times a day, also she was feeling more lethargic and weak and she slept for 48 hours as she described, complaining OF from abdominal pain mainly in the lower abdomen on the right side since Thursday about 7/10 like colic comes and goes. Also patient has been vomiting 2-3 times per day but there is no blood. Also patient with poor appetite. Visiting nurse noticed that her blood pressure was on the low side about 80/40 so she decided to go and see her surgeon before here for her to the emergency room. However when I saw the patient this morning she was fully awake and oriented, she looks comfortable pleasant and not in distress, she was complaining only from minimal abdominal pain. On admission she had a fever of 101, she was hypotensive and severely anemic her blood pressure 1000 as79/45, was fluctuation up to 113/45,this morning her blood pressure was 91/46, she is saturating 93% on 3 L oxygen. hemoglobin on admission was 7.7 and 6.1, compared to 9.8 last month for shawn campo. She received 1 unit of blood transfusion and her hemoglobin this morning is 7.4.INR is normal mildly elevated lactic acid came back to normal. Basic metabolic panel and liver enzymes were unremarkable this morning. urine analysis is negative and multiple viruses are undetected including covid ,influenza and RSV she has CT of the abdomen and pelvis with IV contrast showing no bowel obstru ction with mild sigmoid diverticulitis she received 2 L of normal saline and antibiotics with Flagyl and Levaquin. echocardiogram from 04/03/2022 showing ejection fraction of 55-60% 01/24/2022 Patient feels better, she feels stronger, she was walking the hallway. Her blood pressure still borderline but is improving slowly and gradually while she is on IV fluids also she is on midodrine which she thinks is helping her She still reports some blood in his stool but it's mild Hemoglobin is stable about 7.5. She remains on Levaquin and IV Flagyl and normal saline at 1:30 milliliters per hour Check labs in the morning. Currently patient is placed on liquid diets 01/25/2023 Patient is having recurrent vomiting this morning with some worsening upper abdominal pain but her abdomen still looks soft, no guarding or rebound tenderness. She still has a few spots of bleeding per rectum and epistaxis which is mild. Blood pressure actually improved, with no tachycardia, we will alert her midodrine 5 mg twice a day and we'll alert her normal saline 200 mL per hour. She has worsening swelling in her extremities as well. KUB from today is negative for acute process. She remains on Flagyl and Levaquin Surgery team on the case and plan for endoscopy tomorrow treatment Continue with Phenergan 25 mg as patient states is helping her 01/26/2023 Patient is seen and evaluated in follow-up this morning reports she underwent a bowel prep and is scheduled for colonoscopy with general surgery services today. Patient reports she had clear stool and most recent bowel movement was free of any dark stools or blood. Patient also being followed closely and maintained on IV antibiotics in the form of Flagyl and Levaquin for acute diverticulitis. Hemoglobin is currently stable today at 7.7. WBC is elevated at 14.7 and patient will continue on antibiotics. Kidney functions are within normal limits and blood sugars being monitored. Recommend continue with IV Protonix twice daily. Patient is currently afebrile with no reports of chest pain or shortness of breath. Patient is continued on 2 L and would recommend weaning FiO2 as tolerated. Will await colonoscopy report. 01/27/2023 Patient is seen today and is being followed by general surgery as well as hematology. Patient hemoglobin is 7.1 today and wbc is elevated. Hematology recommending IV iron x2 as studies were low. Recommend repeat cbc in am. Patient is currently NPO and continued on IV abx in the form of flagyl and levaquin for diverticulitis. Colonoscopy shows no acute bleed noted, possibly diverticular disease along with sigmoid diverticulitis. Continue with pain management as patient reports abdominal cramping. Patient anticoagulant remains on hold. Patient is afebrile and has been up and walking. 01/28/2023 Patient is seen in follow up with morning and being followed by surgery as well as hematology. Patient hemoglobin is up to 8 today and has received IV iron x2. Patient blast cells 3 today with hematology following closely. Recommending outpatient follow up. Patient reports some improvement in abdominal pain and diet is being slowly advanced per surgery to clear liquids. Recommend to monitor for tolerance. Chest xray was ordered and pending. Patient continued on IV antibiotics and will continue. Need to discuss further with surgery about treatment plan. Patient is afebrile and continues with an elevated WBC. Recommend follow up labs in the am. 01/29/2023 Patient is seen in follow-up with surgery following. Patient hemoglobin is stable currently and maintained off anticoagulation. Patient is a new non-oral iron supplementation and will continue. Patient continues to have elevated WBC currently above 16 and blast cells at 4 today. Patient is continued on IV antibiotics for the diverticulitis and has been maintaining and tolerating clear liquid diet and reports improvement in her abdominal pain with no reports of nausea or vomiting. Chest x-ray showing some overload and patient reports to having some abdominal bloating as well as generalized edema and will give a dose of IV Lasix. Recommend discontinuing IV hydration. Will follow-up with repeat labs. Recommend incentive spirometer and continuing to use at least 10 times every hour while awake. Encouraged increased activity as tolerated patient reports has been up and walking to the whole back. Recommend continued physical therapy. 01/30/2023 Patient is seated evaluated in follow-up continuing to lie in the bed with gener alized weakness. Patient reports she has been up but not as much. Patient is to receive a PICC line in no being started on TPN given her poor oral intake. Electrolyte abnormalities noting potassium of 3.2 and magnesium is 1.1 and will replace and recommend repeat labs. Patient also continues to report abdominal bloating and abdomen is soft and nontender on exam. Patient did receive a dose of IV Lasix yesterday with good output. General surgery starting TPN with dietitian to follow. Encouraged incentive spirometer at the bedside as patient continues to be on oxygen it does not normally wear this in the outpatient setting. Wean FiO2 as tolerated. Repeat CBC shows a hemoglobin 7.1 today and blast cells are increased up to 9 and discussed with oncology team with plans for possible bone marrow biopsy on Thursday. 01/31/2023 Patient is seen and evaluated in follow-up and hemoglobin was 6.9 today and awaiting to receive 2 units of blood with hematology following closely. General surgery following as well and has placed the patient on TPN and has received a PICC line. Electrolytes were replaced in magnesium above 2 and potassium 3.5. Patient's blood pressure on the lower side most likely multifactorial with pain medications and low blood count will add midodrine. Kidney functions worsened along with patient's sodium becoming hyponatremic although difficult to give IV fluids as patient overload easily. Will consult nephrology and appreciate input and recommendations. Patient is afebrile with no reports of nausea or vomiting noted. No reported chest pain or worsening shortness of breath at this time. Patient needs increased activity as tolerated and sitting up in the chair more often. Would recommend PT/OT therapy daily. 02/01/2023 Patient is seen in follow-up today reports she is not feeling well and per nursing staff has been having fevers overnight and continued on antibiotics for diverticulitis with surgery following. Hematology/oncology following as well and planning for possible bone marrow biopsy tomorrow. Patient is continued on TPN and has PICC line continues with indwelling Fermin catheter. Patient is reporting diarrhea and abdominal distention with pain. Infectious disease consulted and pending. Blood sugars have been elevated and was continued on sliding scale and will continue and add long-acting as well. No reports of chest pain or palpitations noted. Patient is wearing oxygen does not normally wear oxygen outpatient. Patient continues with generalized weakness and is continued on clear liquids. 02/02/2023 Patient seen and evaluated in follow-up with multiple medical consultations following. Blast cells remain elevated and hemoglobin currently stable after transfusion. Patient scheduled for bone marrow biopsy in the a.m. Patient also continues on TPN with general surgery following recommending to continue along with IV antibiotics. Infectious disease has been consulted and antibiotics being adjusted as patient had continued fevers and elevated white count. Pro- calcitonin is elevated and will continue. Patient is having elevated blood sugars and have adjusted long-acting and will continue sliding scale and m onitoring closely. Patient is requiring more oxygen demand currently at 5 L and normally does not wear any oxygen. Chest x-ray ordered pending. 02/03/2023 Patient is seen and evaluated in follow-up today with multiple medical consultations following. Overall prognosis remains guarded as patient has multiple comorbidities and medical issues ongoing. Patient currently remains on TPN for poor oral intake and recommend monitoring electrolytes closely replacing per protocol. Patient hemoglobin improved with no active bleeding noted. Patient continues with abdominal pain as well as some shortness of breath and white count remains elevated patient is having fevers. Chest x-ray suggestive of some volume overload and will continue dose of Lasix. Patient underwent bone marrow biopsy with oncology today. Blood sugars remain uncontrolled and will add pre-meal insulins as well as continue long-acting and sliding scale, possibly consider insulin drip. 02/04/2023 Patient is seen and evaluated in follow-up this morning reports she feels somewhat improved although continues to require high flow oxygen and also using BiPAP with pulmonary following. Chest x-ray this morning is suggestive of pulmonary edema and pleural fluid which is the same or slightly worse than previous could be CHF and was given doses of Lasix with improvement. Patient being started on IV Lasix twice daily with nephrology following closely. Hemoglobin is stable at 7.7 and white count is 8.6, blast cells are 6 and oncology following and has underwent bone marrow biopsy which is pending. Kidney functions are stable in magnesium found to be 1.6 and will replace per protocol. Patient continues on TPN and continues to have multiple electrolyte abnormalities at times. Patient also extremely hyperglycemic and will attempt increasing the long-acting with increasing the pre-meal as well as continuing sliding scale and may require an insulin drip. Patient is also continued on IV antibiotics with infectious disease following closely and per medical record patient has been refusing aztreonam and unsure why. Recommend wean FiO2 as tolerated and encouraged increase activity as tolerated 02/05/2023 Patient is seen and evaluated in follow-up this morning currently sitting up at the side of the bed continues to report shortness of breath although feels is improved. Patient is using BiPAP on occasion and currently maintained on 15 L high flow. Patient is maintained on IV Lasix with nephrology following closely. Multiple medical consultations following including general surgery recommending to continue TPN for abdominal pain and poor oral intake. Would recommend decreasing the rate and amount of fluid from TPN and have discussed this with pharmacy along with dietary adjustments are being made. Patient's blood sugars are elevated although more controlled on current regimen and will continue. Hemoglobin found to be 6.9 this morning and will give a unit of PRBC and recommend follow-up labs. Patient is receiving DuoNeb treatments and would recommend follow-up chest x-ray in the a.m. Overall prognosis remains guarded. 02/06/2023 Patient is seen in follow-up today continued on BiPAP currently had increased respiratory distress requiring an a team last night and maintained on BiPAP and refusing to take it off she is having increasing shortness of breath. Patient is now continued on IV Lasix and TPN being discontinued. Patient is refusing all medications at this time and discuss with nursing staff about encouraging oral intake. Was notified from pharmacy they are out of TPN and okay to discontinue per surgery. Blood sugars improved although patient is not eating and will continue to monitor closely. Patient hemoglobin above 7 and WBC is patient is continued on antibiotics with ID following and has also been started on vancomycin in addition. Pro-calcitonin is elevated. Overall prognosis remains extremely guarded. 02/07/2023 Patient is seen in follow-up this morning currently on the stepdown unit with multiple medical consultations following with plans for transferring to ICU as respiratory status has declined once again and now maintained on continuous BiPA P with an 80% FiO2. Patient has been refusing to remove the BiPAP for any eating or medication and discussed with nursing staff the importance of medication administration as well as the patient. Oral intake remains poor and patient is lethargic. Patient's blood sugars have now been on the lower side as patient is not eating and will add just sliding scale and discontinue the long- acting had prerenal insulins for now. Recommend continue monitoring Accu-Cheks closely for any signs of hypoglycemia as well. Chest x-ray continues to show some overload versus possible pneumonia patient is maintained on IV aztreonam as well as vancomycin with infectious disease following closely. Overall prognosis remains extremely guarded at this time. Will follow-up with repeat labs in a.m. and monitor the patient closely in the ICU. 02/08/2023 Patient is seen in follow-up today has been moved to the ICU for close monitoring as patient's respiratory status has declined. Patient is on BiPAP continuous with an FiO2 of 80% and PEEP is 5. Patient is maintained on antibiotics with multiple medical consultations following in the form of aztreonam and vancomycin while awaiting repeat cultures. Patient did have multiple episodes of loose stools overnight and currently awaiting a C. diff sample. Patient noted to have decreased urine output with indwelling Fermin catheter placed with nephrology following slight bump in kidney functions and is being placed on IV Lasix drip at 10 mL's per hour. Will follow-up with repeat labs. Chest x-ray today shows bibasilar infiltrates with small pleural e ffusions correlate for CHF and pulmonary edema.. hemoglobin is stable above 7.5 with no active bleeding noted and will follow closely and transfuse of 7 or less. Blood sugars slightly improved and will continue on just sliding scale. A was on long-acting although not eating and having close to episodes of hypoglycemia. Patient encouraged oral intake and medication administration. Patient not tolerating taking the BiPAP mask off very well and desats quickly. Patient is currently 92-93% oxygen saturation with an FiO2 of 80% on the BiPAP. Review of systems: Constitutional: reports of fatigue, reports not feeling well Cardiovascular: No reports of chest pain or palpitations Respiratory: reports of worsening shortness of breath GI: No reports of nausea, vomiting, or diarrhea, reports decreased abdominal pain had been refusing to eat with no real appetite : No reports of dysuria or retention, reports decreased urine output Neurovascular: reports of generalized weakness All medications have been reviewed Active Medications Acetaminophen (Acetaminophen Tab 325 Mg Tab) 650 mg PO Q6HR PRN PRN Reason: Fever and/ or Mild Pain Last Admin: 02/05/23 03:44 Dose: 650 mg Hydrocodone Bitart/Acetaminophen (Hydrocodone/Apap 5-325mg 1 Each Tab) 1 each PO Q6HR PRN PRN Reason: Pain Last Admin: 02/07/23 21:43 Dose: 1 each Albuterol/Ipratropium (Ipratropium-Albuterol 3 Ml Neb) 3 ml INHALATION RT-QID [facility] Last Admin: 02/08/23 07:53 Dose: 3 ml Albuterol/Ipratropium (Ipratropium-Albuterol 3 Ml Neb) 3 ml INHALATION RT-Q2H PRN PRN Reason: Shortness Of Breath Or Wheezing Atorvastatin Calcium (Atorvastatin 40 Mg Tab) 40 mg PO HS [facility] Last Admin: 02/07/23 21:42 Dose: 40 mg Baclofen (Baclofen 10 Mg Tab) 10 mg PO [facility] Last Admin: 02/07/23 21:42 Dose: 10 mg Budesonide (Budesonide 1 Mg/2 Ml Nebu) 1 mg INHALATION RT-BID [facility] Last Admin: 02/08/23 07:53 Dose: 1 mg Dextrose/Water (Dextrose 50% Syringe 50 Ml) 25 ml IVP PER PROTOCOL PRN; Protocol PRN Reason: Hypoglycemia Last Admin: 02/07/23 14:12 Dose: 25 ml Dextrose/Water (Dextrose 50% Syringe 50 Ml) 50 ml IVP PER PROTOCOL PRN; Protocol PRN Reason: Hypoglycemia Ferrous Sulfate (Ferrous Sulfate 325 Mg Tab) 325 mg PO BID-W/MEALS [facility] Last Admin: 02/08/23 05:37 Dose: 325 mg Fluticasone Propionate (Fluticasone 50mcg/[place] Nasal 16gm) 2 spray EA NOSTRIL DAILY PRN PRN Reason: allergies Last Admin: 01/28/23 16:26 Dose: 2 spray Formoterol Fumarate (Formoterol Fumarate 20 Mcg/2 Ml Nebu) 20 mcg INHALATION RT-BID [facility] Last Admin: 02/08/23 07:53 Dose: 20 mcg Heparin Sodium (Porcine) (Heparin Sodium,Porcine/Pf 5,000 Unit/0.5 Ml Syringe) 5,000 unit SQ Q12HR [facility] Last Admin: 02/07/23 22:35 Dose: Not Given Hydromorphone HCl (Hydromorphone 1 Mg/Ml 1 Ml Syringe) 1 mg IVP Q3H PRN PRN Reason: Moderate to Severe Pain (4-10) Last Admin: 02/07/23 02:35 Dose: 1 mg Aztreonam 2 gm/ Sodium (Chloride) 100 mls @ 33.3 mls/hr IVPB Q8H [facility]; Protocol Last Admin: 02/08/23 02:08 Dose: 33.3 mls/hr Lactated Ringer's (Lactated Ringers) 1,000 mls @ 20 mls/hr IV .Q24H [facility] Last Admin: 02/07/23 19:55 Dose: Not Given Vancomycin HCl 1,500 mg/ (Sodium Chloride) 500 mls @ 167 mls/hr IVPB Q12H [facility] Last Admin: 02/07/23 23:28 Dose: 167 mls/hr Norepinephrine Bitartrate 8 mg (/ Sodium Chloride) 258 mls @ 4.977 mls/hr IV .Q24H [facility]; Protocol Last Titration: 02/08/23 03:00 Dose: 0.11 mcg/kg/min, 18.247 mls/hr Furosemide 100 mg/ Sodium (Chloride) 100 mls @ 10 mls/hr IV .Q10H [facility] Last Admin: 02/08/23 07:10 Dose: 10 mg/hr, 10 mls/hr Insulin Aspart (Insulin Aspart (Novolog) 100 Unit/Ml Vial) 0 unit SQ ACHS [facility]; Protocol Last Admin: 02/07/23 19:55 Dose: Not Given Lidocaine HCl (Lidocaine 1% (10mg/Ml) For Iv Start) 0.1 ml INTRADERMA PER PROT OCOL PRN PRN Reason: IV Start Metoprolol Tartrate (Metoprolol Tartrate 25 Mg Tab) 25 mg PO BID [facility] Last Admin: 02/07/23 22:36 Dose: Not Given Midodrine (Midodrine 5 Mg Tab) 5 mg PO AC-TID PRN PRN Reason: Hypotension Last Admin: 02/07/23 21:43 Dose: 5 mg Miscellaneous Information (Potassium Replacement Protocol 1 Each Misc) 1 each MISCELLANE DAILY PRN; Protocol PRN Reason: Per Protocol Miscellaneous Information (Magnesium Replacement Protocol 1 Each Misc) 1 each MISCELLANE DAILY PRN; Protocol PRN Reason: Per Protocol Miscellaneous Information (Vancomycin Trough Due 1 Each Misc) 1 each MISCELLANE ONCE ONE Stop: 02/08/23 11:01 Naloxone HCl (Naloxone 0.4 Mg/Ml 1 Ml Vial) 0.2 mg IV Q2M PRN PRN Reason: Opioid Reversal Ondansetron HCl (Ondansetron 4 Mg/2 Ml Vial) 4 mg IVP Q6HR PRN PRN Reason: Nausea And Vomiting Last Admin: 01/30/23 19:49 Dose: 4 mg Pantoprazole Sodium (Pantoprazole 40 Mg/10 Ml Vial) 40 mg IVP BID [facility] Last Admin: 02/07/23 21:42 Dose: 40 mg Promethazine HCl (Promethazine 25 Mg Tab) 25 mg PO Q6HR PRN PRN Reason: Nausea Last Admin: 01/27/23 13:51 Dose: 25 mg Sertraline HCl (Sertraline 50 Mg Tab) 50 mg PO DAILY [facility] Last Admin: 02/07/23 09:15 Dose: 50 mg Simethicone (Simethicone 80 Mg Chewable) 80 mg PO QID [facility] Last Admin: 02/07/23 19:57 Dose: Not Given Physical exam: GENERAL: The patient is alert and oriented x3, Well developed, well nourished. Obese, elderly and ill-appearing, now maintained on BiPAP continuous, FiO2 is 80% with a PEEP of 5 HEENT: Pupils are round and equally reacting to light. EOMI. No scleral icterus. No conjunctival pallor. Normocephalic, atraumatic. No pharyngeal erythema. No thyromegaly. CARDIOVASCULAR: S1 and S2 muffled PULMONARY: Diminished breath sounds bilaterally with some scattered rhonchi and crackles noted ABDOMEN: Soft, obese, nontenderith some bloating, nondistended, normoactive bowel sounds. No palpable organomegaly. MUSCULOSKELETAL: No joint swelling or deformity. EXTREMITIES: No cyanosis, clubbing, or pedal edema. NEUROLOGICAL: Gross neurological examination did not reveal any focal deficits. Diffusely weak SKIN: No rashes. no petechiae. Assessment: Acute anemia, mostly acute blood loss anemia, associated with abdominal pain and sigmoid diverticulitis Acute hypoxemic respiratory failure, possibly secondary to volume overload, now requiring BiPAP Diverticular disease as noted on colonoscopy Sigmoid diverticulitis Acute kidney injury, multifactorial possibly secondary to hypotension as well as poor oral intake, decreased urine output noted with a slight bump in kidney functions placed on IV Lasix drip with nephrology following Severe protein calorie malnutrition secondary to above History of chronic Anemia, iron deficiency Elevated blast cells, currently 1%, possibly secondary to previous chemotherapy or due to recent GI bleeding, bone marrow biopsy on 02/03/2023 is pending Atrial Fibrillation, on Eliquis (ON HOLD) status post Permanent Pacemaker history of anterior abdominal wall fluid collection could be related to seroma Coronary Artery Disease history, status post stent Obesity with BMI of 30.5 COPD, not in exacerbation CVA/TIA history with left foot drop Diabetes Mellitus, uncontrolled with hyperglycemia GERD/Reflux Hyperlipidemia Hypertension Sleep Apnea/CPAP/BIPAP Diabetic neuropathy bilateral legs/feet History of colon cancer with revision/colostomy since reversed and chemo/radiation History of PVD Full code Plan: Recommend continue with antibiotics in the form of now vancomycin and Aztreonam with infectious disease following. Procalcitonin was elevated. Blood cultures thus far remain negative and sputum culture was sent and pending. WBC has improved and patient is afebrile Indwelling Fermin catheter with decreased urine output and nephrology following with a slight bump in kidney functions being started on Lasix drip at 10 mL per hour Recommend to continue weaning FiO2 as tolerated currently on BiPAP continuously with pulmonary following and has transferred to ICU for close monitoring Gen. surgery following this patient is status post endoscopy with no active bleeding noted likely diverticular, TPN being discontinued his pharmacy is out of and okay per surgery to [place] Blood sugars improved although patient is not eating and we'll continue sliding scale, will discontinue long-acting insulin and recommend monitor Accu-Cheks closely for hypoglycemia Recommend consistent carb diabetic diet continuing to encourage oral intake as patient is reporting no appetite and has not been eating Chest x-ray continues to show ulnar edema and continued CHF with overload Oncology following patient underwent bone marrow biopsy on 02/03/2023, results are still pending Recommend follow-up labs in a.m. Recommend continue holding eliquis at this time with concerns for possible GI bleed, patient was started on subcu heparin by cardiology although this is currently being held as well for low hemoglobin recommend increased activity as tolerated Due to multiple complex medical issues, prognosis is extremely guarded The impression and plan of care has been dictated by Mindy Saleh, Nurse Prac titioner as directed. Dr. Celso MD I have performed a history and examination and MDM of this patient, discussed the same with the dictator, and agree with the dictator's assessment and plan as written ,documented as a scribe. Based on total visit time, I have performed more than 50% of the visit. Objective - Vital Signs Vital signs: Vital Signs Temp 97.9 F 02/08/23 04:00 Pulse 89 02/08/23 07:45 Resp 22 02/08/23 07:45 BP 122/54 02/08/23 07:45 Pulse Ox 92 L 02/08/23 07:45 FiO2 80 02/08/23 07:49 Intake & Output 02/07/23 02/08/23 02/08/23 18:59 06:59 18:59 Intake Total 1245.774 955.127 210 Output Total 500 327 25 Balance 745.774 628.127 185 Weight 85.729 kg Intake: IV 840 210 .9 10cc/hr 110 10 Aztreonam 2 gm In Sodium 100 Chloride 0.9% 100 ml @ 33 .3 mls/hr IVPB Q8H [facility] Rx #:[id number] Invasive Line 4 30 Magnesium Sulfate-D5w Pmx 100 1 gm In Dextrose/Water 1 100ml.bag @ 100 mls/hr IVPB ONCE ONE Rx#: [id number] Potassium Chloride 10 meq 100 100 In Water For Injection 1 100ml.bag @ 100 mls/hr IVPB Q1H [facility] Rx#: [id number] Vancomycin 1,500 mg In 500 Sodium Chloride 0.9% 500 ml 500 ml @ 167 mls/hr IVPB Q12H [facility] Rx#: [id number] Intake, IV Titration 817.774 115.127 Amount Aztreonam 2 gm In Sodium 200 Chloride 0.9% 100 ml @ 33 .3 mls/hr IVPB Q8H [facility] Rx #:[id number] IV Fluid Continuation 1, 30 000 ml @ 0 mls/hr IV .STK -[facility] Rx#:[id number] Lactated Ringers 1,000 ml 40 @ 20 mls/hr IV .Q24H [facility] Rx#:[id number] Norepinephrine 8 mg In 47.774 115.127 Sodium Chloride 0.9% 250 ml @ 0.03 MCG/KG/MIN 4. 977 mls/hr IV .Q24H [facility] Rx#:[id number] Vancomycin 1,500 mg In 500 Sodium Chloride 0.9% 500 ml 500 ml @ 167 mls/hr IVPB Q12H [facility] Rx#: [id number] Oral 118 Blood Product 310 Rc As-1 Unit 310 [id number] Output: Urine 500 325 25 Stool 2 Other: Voiding Method Indwelling Catheter Indwelling Catheter # Bowel Movements 1 5 - Labs CBC & Chem 7: 02/08/23 04:01 02/08/23 04:01 Labs: Abnormal Lab Results - Last 24 Hours (Table) 02/05/23 02/07/23 02/07/23 Range/Units 12:34 07:29 07:29 RBC 3.27 L (3.80-5.40) m/uL Hgb 8.0 L (11.4-16.0) gm/dL Hct 26.7 L (34.0-46.0) % MCV (80.0-100.0) fL MCH 24.6 L (25.0-35.0) pg MCHC 30.1 L (31.0-37.0) g/dL RDW 24.3 H (11.5-15.5) % Plt Count 73 L (150-450) k/uL Blast Cells % 2 H* % Lymphocytes # (Manual) 0.30 L (1.0-4.8) k/uL Eosinophils # (Manual) (0-0.7) k/uL Blast Cells # (Man) 0.12 H (0) k/uL ABG pCO2 (35-45) mmHg ABG pO2 (83-108) mmHg Chloride (98-107) mmol/L Carbon Dioxide 20 L (22-30) mmol/L BUN 56 H (7-17) mg/dL Creatinine (0.52-1.04) mg/dL Glucose 70 L (74-99) mg/dL POC Glucose (mg/dL) (70-110) mg/dL Calcium 6.8 L (8.4-10.2) mg/dL AST (14-36) U/L Alkaline Phosphatase (38-126) U/L Total Protein (6.3-8.2) g/dL Albumin (3.5-5.0) g/dL Urine Appearance (Clear) Urine Protein (Negative) Urine Ketones (Negative) Ur Leukocyte Esterase (Negative) Amorphous Sediment (None) /hpf Urine Bacteria (None) /hpf Hyaline Casts (0-2) /lpf Urine Mucus (None) /hpf Crossmatch See Detail 02/07/23 02/07/23 02/07/23 Range/Units 11:35 11:36 13:15 RBC 2.60 L (3.80-5.40) m/uL Hgb 6.6 L* (11.4-16.0) gm/dL Hct 20.9 L (34.0-46.0) % MCV (80.0-100.0) fL MCH (25.0-35.0) pg MCHC (31.0-37.0) g/dL RDW 24.3 H (11.5-15.5) % Plt Count 61 L (150-450) k/uL Blast Cells % 2 H* % Lymphocytes # (Manual) 0.50 L (1.0-4.8) k/uL Eosinophils # (Manual) (0-0.7) k/uL Blast Cells # (Man) 0.11 H (0) k/uL ABG pCO2 (35-45) mmHg ABG pO2 (83-108) mmHg Chloride (98-107) mmol/L Carbon Dioxide (22-30) mmol/L BUN (7-17) mg/dL Creatinine (0.52-1.04) mg/dL Glucose (74-99) mg/dL POC Glucose (mg/dL) 45 L 46 L (70-110) mg/dL Calcium (8.4-10.2) mg/dL AST (14-36) U/L Alkaline Phosphatase (38-126) U/L Total Protein (6.3-8.2) g/dL Albumin (3.5-5.0) g/dL Urine Appearance (Clear) Urine Protein (Negative) Urine Ketones (Negative) Ur Leukocyte Esterase (Negative) Amorphous Sediment (None) /hpf Urine Bacteria (None) /hpf Hyaline Casts (0-2) /lpf Urine Mucus (None) /hpf Crossmatch 02/07/23 02/07/23 02/07/23 Range/Units 14:05 14:12 14:22 RBC (3.80-5.40) m/uL Hgb (11.4-16.0) gm/dL Hct (34.0-46.0) % MCV (80.0-100.0) fL MCH (25.0-35.0) pg MCHC (31.0-37.0) g/dL RDW (11.5-15.5) % Plt Count (150-450) k/uL Blast Cells % % Lymphocytes # (Manual) (1.0-4.8) k/uL Eosinophils # (Manual) (0-0.7) k/uL Blast Cells # (Man) (0) k/uL ABG pCO2 (35-45) mmHg ABG pO2 82 L (83-108) mmHg Chloride (98-107) mmol/L Carbon Dioxide (22-30) mmol/L BUN (7-17) mg/dL Creatinine (0.52-1.04) mg/dL Glucose (74-99) mg/dL POC Glucose (mg/dL) 52 L (70-110) mg/dL Calcium (8.4-10.2) mg/dL AST (14-36) U/L Alkaline Phosphatase (38-126) U/L Total Protein (6.3-8.2) g/dL Albumin (3.5-5.0) g/dL Urine Appearance Cloudy H (Clear) Urine Protein Trace H (Negative) Urine Ketones 1+ H (Negative) Ur Leukocyte Esterase Small H (Negative) Amorphous Sediment Rare H (None) /hpf Urine Bacteria Occasional H (None) /hpf Hyaline Casts 5 H (0-2) /lpf Urine Mucus Rare H (None) /hpf Crossmatch 02/07/23 02/07/23 02/07/23 Range/Units 17:42 18:03 19:48 RBC 3.02 L (3.80-5.40) m/uL Hgb 7.6 L (11.4-16.0) gm/dL Hct 24.4 L (34.0-46.0) % MCV (80.0-100.0) fL MCH (25.0-35.0) pg MCHC (31.0-37.0) g/dL RDW 23.4 H (11.5-15.5) % Plt Count 70 L (150-450) k/uL Blast Cells % % Lymphocytes # (Manual) (1.0-4.8) k/uL Eosinophils # (Manual) (0-0.7) k/uL Blast Cells # (Man) (0) k/uL ABG pCO2 (35-45) mmHg ABG pO2 (83-108) mmHg Chloride (98-107) mmol/L Carbon Dioxide (22-30) mmol/L BUN (7-17) mg/dL Creatinine (0.52-1.04) mg/dL Glucose (74-99) mg/dL POC Glucose (mg/dL) 116 H 124 H (70-110) mg/dL Calcium (8.4-10.2) mg/dL AST (14-36) U/L Alkaline Phosphatase (38-126) U/L Total Protein (6.3-8.2) g/dL Albumin (3.5-5.0) g/dL Urine Appearance (Clear) Urine Protein (Negative) Urine Ketones (Negative) Ur Leukocyte Esterase (Negative) Amorphous Sediment (None) /hpf Urine Bacteria (None) /hpf Hyaline Casts (0-2) /lpf Urine Mucus (None) /hpf Crossmatch 02/07/23 02/07/23 02/07/23 Range/Units 22:21 23:21 23:59 RBC 3.04 L (3.80-5.40) m/uL Hgb 7.8 L (11.4-16.0) gm/dL Hct 24.4 L (34.0-46.0) % MCV (80.0-100.0) fL MCH (25.0-35.0) pg MCHC (31.0-37.0) g/dL RDW 23.4 H (11.5-15.5) % Plt Count 70 L (150-450) k/uL Blast Cells % % Lymphocytes # (Manual) 0.90 L (1.0-4.8) k/uL Eosinophils # (Manual) 0.82 H (0-0.7) k/uL Blast Cells # (Man) (0) k/uL ABG pCO2 (35-45) mmHg ABG pO2 (83-108) mmHg Chloride (98-107) mmol/L Carbon Dioxide (22-30) mmol/L BUN (7-17) mg/dL Creatinine (0.52-1.04) mg/dL Glucose (74-99) mg/dL POC Glucose (mg/dL) 129 H 146 H (70-110) mg/dL Calcium (8.4-10.2) mg/dL AST (14-36) U/L Alkaline Phosphatase (38-126) U/L Total Protein (6.3-8.2) g/dL Albumin (3.5-5.0) g/dL Urine Appearance (Clear) Urine Protein (Negative) Urine Ketones (Negative) Ur Leukocyte Esterase (Negative) Amorphous Sediment (None) /hpf Urine Bacteria (None) /hpf Hyaline Casts (0-2) /lpf Urine Mucus (None) /hpf Crossmatch 02/08/23 02/08/23 02/08/23 Range/Units 04:01 04:01 05:33 RBC 2.95 L (3.80-5.40) m/uL Hgb 7.5 L (11.4-16.0) gm/dL Hct 23.4 L (34.0-46.0) % MCV 79.2 L (80.0-100.0) fL MCH (25.0-35.0) pg MCHC (31.0-37.0) g/dL RDW 23.3 H (11.5-15.5) % Plt Count 75 L (150-450) k/uL Blast Cells % 1 H* % Lymphocytes # (Manual) 0.61 L (1.0-4.8) k/uL Eosinophils # (Manual) (0-0.7) k/uL Blast Cells # (Man) 0.09 H (0) k/uL ABG pCO2 (35-45) mmHg ABG pO2 (83-108) mmHg Chloride 109 H (98-107) mmol/L Carbon Dioxide 19 L (22-30) mmol/L BUN 68 H (7-17) mg/dL Creatinine 1.24 H (0.52-1.04) mg/dL Glucose 129 H (74-99) mg/dL POC Glucose (mg/dL) 148 H (70-110) mg/dL Calcium 6.5 L (8.4-10.2) mg/dL AST 53 H (14-36) U/L Alkaline Phosphatase 222 H (38-126) U/L Total Protein 4.4 L (6.3-8.2) g/dL Albumin 1.7 L (3.5-5.0) g/dL Urine Appearance (Clear) Urine Protein (Negative) Urine Ketones (Negative) Ur Leukocyte Esterase (Negative) Amorphous Sediment (None) /hpf Urine Bacteria (None) /hpf Hyaline Casts (0-2) /lpf Urine Mucus (None) /hpf Crossmatch 02/08/23 02/08/23 Range/Units 06:00 07:07 RBC (3.80-5.40) m/uL Hgb (11.4-16.0) gm/dL Hct (34.0-46.0) % MCV (80.0-100.0) fL MCH (25.0-35.0) pg MCHC (31.0-37.0) g/dL RDW (11.5-15.5) % Plt Count (150-450) k/uL Blast Cells % % Lymphocytes # (Manual) (1.0-4.8) k/uL Eosinophils # (Manual) (0-0.7) k/uL Blast Cells # (Man) (0) k/uL ABG pCO2 33 L (35-45) mmHg ABG pO2 74 L (83-108) mmHg Chloride (98-107) mmol/L Carbon Dioxide (22-30) mmol/L BUN (7-17) mg/dL Creatinine (0.52-1.04) mg/dL Glucose (74-99) mg/dL POC Glucose (mg/dL) 197 H (70-110) mg/dL Calcium (8.4-10.2) mg/dL AST (14-36) U/L Alkaline Phosphatase (38-126) U/L Total Protein (6.3-8.2) g/dL Albumin (3.5-5.0) g/dL Urine Appearance (Clear) Urine Protein (Negative) Urine Ketones (Negative) Ur Leukocyte Esterase (Negative) Amorphous Sediment (None) /hpf Urine Bacteria (None) /hpf Hyaline Casts (0-2) /lpf Urine Mucus (None) /hpf Crossmatch Microbiology - Last 24 Hours (Table) 02/01/23 11:32 Blood Culture - Final Blood No Growth after 144 hours
[2023-02-08 11:28] LABS: Glucose,Whole Blood 174 mg/dL (70-110)
[2023-02-08] MEDS ORDERED: VANCOMYCIN IV PER PHARMACY 1 EACH MISC MISCELLANE PRN (11:49)
[2023-02-08] MEDS: MIDODRINE 5 MG TAB PO SCH ×2 (12:30→17:32)
--- NOTE | 2023-02-08 14:06 | P.PN ---
Subjective Progress Note Date: 02/08/23 Principal diagnosis: Fever possible pneumonia Patient is a 72-year-old female with a past medical history negative for hypertension hyperlipidemia diabetes mellitus CVA TIA cervical cancer did have a history of atrial fibrillation on anticoagulation presenting to the [facility] on 01/22/2023 for evaluation of rectal bleeding , patient diagnosed with diverticulitis and has been treated with Levaquin and Flagyl, patient did spike fever prompting this infection consultation. On today's evaluation early 02/08/2023, the patient remains to be afebrile, the patient remains to be BiPAP dependent and is requiring 80% FiO2 patient also requiring a low dose Levophed to maintain her blood pressure, no vomiting diarrhea or any other changes reported by the nursing staff Objective - Vital Signs Vital signs: Vital Signs Temp 97.7 F 02/08/23 12:00 Pulse 93 02/08/23 13:00 Resp 18 02/08/23 13:00 BP 105/46 02/08/23 13:00 Pulse Ox 92 L 02/08/23 13:00 FiO2 80 02/08/23 13:00 Intake & Output 02/07/23 02/08/23 02/08/23 18:59 06:59 18:59 Intake Total 1245.774 955.127 593.789 Output Total 500 327 235 Balance 745.774 628.127 358.789 Weight 85.729 kg Intake: IV 840 389 .9 10cc/hr 110 70 Aztreonam 2 gm In Sodium 100 99 Chloride 0.9% 100 ml @ 33 .3 mls/hr IVPB Q8H [facility] Rx #:[id number] Invasive Line 4 30 20 Magnesium Sulfate-D5w Pmx 100 1 gm In Dextrose/Water 1 100ml.bag @ 100 mls/hr IVPB ONCE ONE Rx#: [id number] Potassium Chloride 10 meq 100 100 In Water For Injection 1 100ml.bag @ 100 mls/hr IVPB Q1H [facility] Rx#: [id number] Vancomycin 1,500 mg In 500 Sodium Chloride 0.9% 500 ml 500 ml @ 167 mls/hr IVPB Q12H [facility] Rx#: [id number] Intake, IV Titration 817.774 115.127 204.789 Amount Aztreonam 2 gm In Sodium 200 Chloride 0.9% 100 ml @ 33 .3 mls/hr IVPB Q8H [facility] Rx #:[id number] Furosemide 100 mg In 60 Sodium Chloride 0.9% 90 ml @ 10 MG/HR 10 mls/hr IV .Q10H [facility] Rx#: [id number] IV Fluid Continuation 1, 30 000 ml @ 0 mls/hr IV .STK [facility] Rx#:[id number] Lactated Ringers 1,000 ml 40 @ 20 mls/hr IV .Q24H [facility] Rx#:[id number] Norepinephrine 8 mg In 47.774 115.127 144.789 Sodium Chloride 0.9% 250 ml @ 0.03 MCG/KG/MIN 4. 977 mls/hr IV .Q24H [facility] Rx#:[id number] Vancomycin 1,500 mg In 500 Sodium Chloride 0.9% 500 ml 500 ml @ 167 mls/hr IVPB Q12H [facility] Rx#: [id number] Oral 118 Blood Product 310 Rc As-1 Unit 310 [id number] Output: Urine 500 325 235 Stool 2 Other: Voiding Method Indwelling Catheter Indwelling Catheter Indwelling Catheter # Bowel Movements 1 5 - Exam GENERAL DESCRIPTION: An elderly female lying in bed in no distress RESPIRATORY SYSTEM: Unlabored breathing , decreased breath sounds at bases HEART: S1 S2 regular rate and rhythm , ABDOMEN: Soft , no tenderness EXTREMITIES: No edema feet - Labs CBC & Chem 7: 02/08/23 04:01 02/08/23 04:01 Labs: Abnormal Lab Results - Last 24 Hours (Table) 02/05/23 02/07/23 02/07/23 Range/Units 12:34 13:15 14:05 RBC 2.60 L (3.80-5.40) m/uL Hgb 6.6 L* (11.4-16.0) gm/dL Hct 20.9 L (34.0-46.0) % MCV (80.0-100.0) fL RDW 24.3 H (11.5-15.5) % Plt Count 61 L (150-450) k/uL Blast Cells % 2 H* % Lymphocytes # (Manual) 0.50 L (1.0-4.8) k/uL Eosinophils # (Manual) (0-0.7) k/uL Blast Cells # (Man) 0.11 H (0) k/uL ABG pCO2 (35-45) mmHg ABG pO2 (83-108) mmHg Chloride (98-107) mmol/L Carbon Dioxide (22-30) mmol/L BUN (7-17) mg/dL Creatinine (0.52-1.04) mg/dL Glucose (74-99) mg/dL POC Glucose (mg/dL) (70-110) mg/dL Calcium (8.4-10.2) mg/dL AST (14-36) U/L Alkaline Phosphatase (38-126) U/L Total Protein (6.3-8.2) g/dL Albumin (3.5-5.0) g/dL Urine Appearance Cloudy H (Clear) Urine Protein Trace H (Negative) Urine Ketones 1+ H (Negative) Ur Leukocyte Esterase Small H (Negative) Amorphous Sediment Rare H (None) /hpf Urine Bacteria Occasional H (None) /hpf Hyaline Casts 5 H (0-2) /lpf Urine Mucus Rare H (None) /hpf Vancomycin Trough ug/mL Crossmatch See Detail 02/07/23 02/07/23 02/07/23 Range/Units 14:12 14:22 17:42 RBC (3.80-5.40) m/uL Hgb (11.4-16.0) gm/dL Hct (34.0-46.0) % MCV (80.0-100.0) fL RDW (11.5-15.5) % Plt Count (150-450) k/uL Blast Cells % % Lymphocytes # (Manual) (1.0-4.8) k/uL Eosinophils # (Manual) (0-0.7) k/uL Blast Cells # (Man) (0) k/uL ABG pCO2 (35-45) mmHg ABG pO2 82 L (83-108) mmHg Chloride (98-107) mmol/L Carbon Dioxide (22-30) mmol/L BUN (7-17) mg/dL Creatinine (0.52-1.04) mg/dL Glucose (74-99) mg/dL POC Glucose (mg/dL) 52 L 116 H (70-110) mg/dL Calcium (8.4-10.2) mg/dL AST (14-36) U/L Alkaline Phosphatase (38-126) U/L Total Protein (6.3-8.2) g/dL Albumin (3.5-5.0) g/dL Urine Appearance (Clear) Urine Protein (Negative) Urine Ketones (Negative) Ur Leukocyte Esterase (Negative) Amorphous Sediment (None) /hpf Urine Bacteria (None) /hpf Hyaline Casts (0-2) /lpf Urine Mucus (None) /hpf Vancomycin Trough ug/mL Crossmatch 02/07/23 02/07/23 02/07/23 Range/Units 18:03 19:48 22:21 RBC 3.02 L (3.80-5.40) m/uL Hgb 7.6 L (11.4-16.0) gm/dL Hct 24.4 L (34.0-46.0) % MCV (80.0-100.0) fL RDW 23.4 H (11.5-15.5) % Plt Count 70 L (150-450) k/uL Blast Cells % % Lymphocytes # (Manual) (1.0-4.8) k/uL Eosinophils # (Manual) (0-0.7) k/uL Blast Cells # (Man) (0) k/uL ABG pCO2 (35-45) mmHg ABG pO2 (83-108) mmHg Chloride (98-107) mmol/L Carbon Dioxide (22-30) mmol/L BUN (7-17) mg/dL Creatinine (0.52-1.04) mg/dL Glucose (74-99) mg/dL POC Glucose (mg/dL) 124 H 129 H (70-110) mg/dL Calcium (8.4-10.2) mg/dL AST (14-36) U/L Alkaline Phosphatase (38-126) U/L Total Protein (6.3-8.2) g/dL Albumin (3.5-5.0) g/dL Urine Appearance (Clear) Urine Protein (Negative) Urine Ketones (Negative) Ur Leukocyte Esterase (Negative) Amorphous Sediment (None) /hpf Urine Bacteria (None) /hpf Hyaline Casts (0-2) /lpf Urine Mucus (None) /hpf Vancomycin Trough ug/mL Crossmatch 02/07/23 02/07/23 02/08/23 Range/Units 23:21 23:59 04:01 RBC 3.04 L 2.95 L (3.80-5.40) m/uL Hgb 7.8 L 7.5 L (11.4-16.0) gm/dL Hct 24.4 L 23.4 L (34.0-46.0) % MCV 79.2 L (80.0-100.0) fL RDW 23.4 H 23.3 H (11.5-15.5) % Plt Count 70 L 75 L (150-450) k/uL Blast Cells % 1 H* % Lymphocytes # (Manual) 0.90 L 0.61 L (1.0-4.8) k/uL Eosinophils # (Manual) 0.82 H (0-0.7) k/uL Blast Cells # (Man) 0.09 H (0) k/uL ABG pCO2 (35-45) mmHg ABG pO2 (83-108) mmHg Chloride (98-107) mmol/L Carbon Dioxide (22-30) mmol/L BUN (7-17) mg/dL Creatinine (0.52-1.04) mg/dL Glucose (74-99) mg/dL POC Glucose (mg/dL) 146 H (70-110) mg/dL Calcium (8.4-10.2) mg/dL AST (14-36) U/L Alkaline Phosphatase (38-126) U/L Total Protein (6.3-8.2) g/dL Albumin (3.5-5.0) g/dL Urine Appearance (Clear) Urine Protein (Negative) Urine Ketones (Negative) Ur Leukocyte Esterase (Negative) Amorphous Sediment (None) /hpf Urine Bacteria (None) /hpf Hyaline Casts (0-2) /lpf Urine Mucus (None) /hpf Vancomycin Trough ug/mL Crossmatch 02/08/23 02/08/23 02/08/23 Range/Units 04:01 05:33 06:00 RBC (3.80-5.40) m/uL Hgb (11.4-16.0) gm/dL Hct (34.0-46.0) % MCV (80.0-100.0) fL RDW (11.5-15.5) % Plt Count (150-450) k/uL Blast Cells % % Lymphocytes # (Manual) (1.0-4.8) k/uL Eosinophils # (Manual) (0-0.7) k/uL Blast Cells # (Man) (0) k/uL ABG pCO2 33 L (35-45) mmHg ABG pO2 74 L (83-108) mmHg Chloride 109 H (98-107) mmol/L Carbon Dioxide 19 L (22-30) mmol/L BUN 68 H (7-17) mg/dL Creatinine 1.24 H (0.52-1.04) mg/dL Glucose 129 H (74-99) mg/dL POC Glucose (mg/dL) 148 H (70-110) mg/dL Calcium 6.5 L (8.4-10.2) mg/dL AST 53 H (14-36) U/L Alkaline Phosphatase 222 H (38-126) U/L Total Protein 4.4 L (6.3-8.2) g/dL Albumin 1.7 L (3.5-5.0) g/dL Urine Appearance (Clear) Urine Protein (Negative) Urine Ketones (Negative) Ur Leukocyte Esterase (Negative) Amorphous Sediment (None) /hpf Urine Bacteria (None) /hpf Hyaline Casts (0-2) /lpf Urine Mucus (None) /hpf Vancomycin Trough ug/mL Crossmatch 02/08/23 02/08/23 02/08/23 Range/Units 07:07 10:35 11:27 RBC (3.80-5.40) m/uL Hgb (11.4-16.0) gm/dL Hct (34.0-46.0) % MCV (80.0-100.0) fL RDW (11.5-15.5) % Plt Count (150-450) k/uL Blast Cells % % Lymphocytes # (Manual) (1.0-4.8) k/uL Eosinophils # (Manual) (0-0.7) k/uL Blast Cells # (Man) (0) k/uL ABG pCO2 (35-45) mmHg ABG pO2 (83-108) mmHg Chloride (98-107) mmol/L Carbon Dioxide (22-30) mmol/L BUN (7-17) mg/dL Creatinine (0.52-1.04) mg/dL Glucose (74-99) mg/dL POC Glucose (mg/dL) 197 H 174 H (70-110) mg/dL Calcium (8.4-10.2) mg/dL AST (14-36) U/L Alkaline Phosphatase (38-126) U/L Total Protein (6.3-8.2) g/dL Albumin (3.5-5.0) g/dL Urine Appearance (Clear) Urine Protein (Negative) Urine Ketones (Negative) Ur Leukocyte Esterase (Negative) Amorphous Sediment (None) /hpf Urine Bacteria (None) /hpf Hyaline Casts (0-2) /lpf Urine Mucus (None) /hpf Vancomycin Trough 40.5 H* ug/mL Crossmatch Microbiology - Last 24 Hours (Table) 02/01/23 11:32 Blood Culture - Final Blood No Growth after 144 hours Assessment and Plan (1) Fever Current Visit: Yes Status: Acute Code(s): R50.9 - FEVER, UNSPECIFIED SNOMED Code(s): 329229496 Plan: 1patient with sepsis in this patient who did have a fever elevated white count present to the hospital predominantly with the GI symptoms specially with abdominal pain and bleeding per rectum patient bleeding seems to have improved however still complaining of diarrhea with admission CT did shows evidence of sigmoid diverticulitis patient also have some urinary symptoms and with exposure to antibiotics concerning for possible CVA versus UTI. 2patient with multiple antibiotic allergies that would limit the number of antibiotics safe to use. 3patient did have elevated CRP procalcitonin chest x-ray concerning for possible left-sided pneumonia, sputum cultures obtained which are so for negative 4patient fever has resolved and the patient white count has normalized however patient did have worsening of respiratory status and has been transferred to the ICU , patient culture had been negative for MRSA with elevated Vanco trough we will go ahead and discontinue vancomycin continue the patient on Azactam and Flagyl and monitor clinical course closely Time with Patient: Less than 30
[2023-02-08 16:40] LABS: Glucose,Whole Blood 146 mg/dL (70-110)
--- NOTE | 2023-02-08 17:21 | P.PN ---
Subjective Progress Note Date: 02/08/23 -Transferred to ICU for respiratory distress on 02/07/2023 -Chest x-ray noted findings consistent with pulmonary edema -Started on Lasix drip, Levophed, and midodrine -Received 1 unit of packed red blood cells for hemoglobin 6.6 with appropriate response to 7.6 -Notes improvement in breathing on examination today -Denies any bleeding currently Objective - Vital Signs Vital signs: Vital Signs Temp 99 F 02/08/23 16:00 Pulse 112 H 02/08/23 16:00 Resp 25 H 02/08/23 16:00 BP 116/54 02/08/23 16:00 Pulse Ox 88 L 02/08/23 16:21 FiO2 90 02/08/23 16:30 Intake & Output 02/07/23 02/08/23 02/08/23 18:59 06:59 18:59 Intake Total 1245.774 955.127 773.876 Output Total 500 327 312 Balance 745.774 628.127 461.876 Weight 85.729 kg Intake: IV 840 462 .9 10cc/hr 110 100 Aztreonam 2 gm In Sodium 100 132 Chloride 0.9% 100 ml @ 33 .3 mls/hr IVPB Q8H [facility] Rx #:[id number] Invasive Line 4 30 30 Magnesium Sulfate-D5w Pmx 100 1 gm In Dextrose/Water 1 100ml.bag @ 100 mls/hr IVPB ONCE ONE Rx#: [id number] Potassium Chloride 10 meq 100 100 In Water For Injection 1 100ml.bag @ 100 mls/hr IVPB Q1H [facility] Rx#: [id number] Vancomycin 1,500 mg In 500 Sodium Chloride 0.9% 500 ml 500 ml @ 167 mls/hr IVPB Q12H [facility] Rx#: [id number] Intake, IV Titration 817.774 115.127 311.876 Amount Aztreonam 2 gm In Sodium 200 Chloride 0.9% 100 ml @ 33 .3 mls/hr IVPB Q8H [facility] Rx #:[id number] Furosemide 100 mg In 161.833 Sodium Chloride 0.9% 90 ml @ 10 MG/HR 10 mls/hr IV .Q10H [facility] Rx#: [id number] IV Fluid Continuation 1, 30 000 ml @ 0 mls/hr IV .STK -MED ONE Rx#:[id number] Lactated Ringers 1,000 ml 40 @ 20 mls/hr IV .Q24H [facility] Rx#:[id number] Norepinephrine 8 mg In 47.774 115.127 150.043 Sodium Chloride 0.9% 250 ml @ 0.03 MCG/KG/MIN 4. 977 mls/hr IV .Q24H [facility] Rx#:[id number] Vancomycin 1,500 mg In 500 Sodium Chloride 0.9% 500 ml 500 ml @ 167 mls/hr IVPB Q12H [facility] Rx#: [id number] Oral 118 Blood Product 310 Rc As-1 Unit 310 [id number] Output: Urine 500 325 312 Stool 2 Other: Voiding Method Indwelling Catheter Indwelling Catheter Indwelling Catheter # Bowel Movements 1 5 - Constitutional Constitutional Comment(s): Wearing BiPAP mask General appearance: Present: cooperative, no acute distress - Respiratory Respiratory: bilateral: wheezing (Inspiratory and expiratory wheezing appreci ated) - Cardiovascular Rhythm: regular - Integumentary Integumentary: Present: pale. Absent: rash - Labs CBC & Chem 7: 02/08/23 04:01 02/08/23 04:01 Labs: Abnormal Lab Results - Last 24 Hours (Table) 02/07/23 02/07/23 02/07/23 Range/Units 17:42 18:03 19:48 RBC 3.02 L (3.80-5.40) m/uL Hgb 7.6 L (11.4-16.0) gm/dL Hct 24.4 L (34.0-46.0) % MCV (80.0-100.0) fL RDW 23.4 H (11.5-15.5) % Plt Count 70 L (150-450) k/uL Blast Cells % % Lymphocytes # (Manual) (1.0-4.8) k/uL Eosinophils # (Manual) (0-0.7) k/uL Blast Cells # (Man) (0) k/uL ABG pCO2 (35-45) mmHg ABG pO2 (83-108) mmHg Chloride (98-107) mmol/L Carbon Dioxide (22-30) mmol/L BUN (7-17) mg/dL Creatinine (0.52-1.04) mg/dL Glucose (74-99) mg/dL POC Glucose (mg/dL) 116 H 124 H (70-110) mg/dL Calcium (8.4-10.2) mg/dL AST (14-36) U/L Alkaline Phosphatase (38-126) U/L Total Protein (6.3-8.2) g/dL Albumin (3.5-5.0) g/dL Procalcitonin (0.02-0.09) ng/mL Vancomycin Trough ug/mL 02/07/23 02/07/23 02/07/23 Range/Units 22:21 23:21 23:59 RBC 3.04 L (3.80-5.40) m/uL Hgb 7.8 L (11.4-16.0) gm/dL Hct 24.4 L (34.0-46.0) % MCV (80.0-100.0) fL RDW 23.4 H (11.5-15.5) % Plt Count 70 L (150-450) k/uL Blast Cells % % Lymphocytes # (Manual) 0.90 L (1.0-4.8) k/uL Eosinophils # (Manual) 0.82 H (0-0.7) k/uL Blast Cells # (Man) (0) k/uL ABG pCO2 (35-45) mmHg ABG pO2 (83-108) mmHg Chloride (98-107) mmol/L Carbon Dioxide (22-30) mmol/L BUN (7-17) mg/dL Creatinine (0.52-1.04) mg/dL Glucose (74-99) mg/dL POC Glucose (mg/dL) 129 H 146 H (70-110) mg/dL Calcium (8.4-10.2) mg/dL AST (14-36) U/L Alkaline Phosphatase (38-126) U/L Total Protein (6.3-8.2) g/dL Albumin (3.5-5.0) g/dL Procalcitonin (0.02-0.09) ng/mL Vancomycin Trough ug/mL 02/08/23 02/08/23 02/08/23 Range/Units 04:01 04:01 05:33 RBC 2.95 L (3.80-5.40) m/uL Hgb 7.5 L (11.4-16.0) gm/dL Hct 23.4 L (34.0-46.0) % MCV 79.2 L (80.0-100.0) fL RDW 23.3 H (11.5-15.5) % Plt Count 75 L (150-450) k/uL Blast Cells % 1 H* % Lymphocytes # (Manual) 0.61 L (1.0-4.8) k/uL Eosinophils # (Manual) (0-0.7) k/uL Blast Cells # (Man) 0.09 H (0) k/uL ABG pCO2 (35-45) mmHg ABG pO2 (83-108) mmHg Chloride 109 H (98-107) mmol/L Carbon Dioxide 19 L (22-30) mmol/L BUN 68 H (7-17) mg/dL Creatinine 1.24 H (0.52-1.04) mg/dL Glucose 129 H (74-99) mg/dL POC Glucose (mg/dL) 148 H (70-110) mg/dL Calcium 6.5 L (8.4-10.2) mg/dL AST 53 H (14-36) U/L Alkaline Phosphatase 222 H (38-126) U/L Total Protein 4.4 L (6.3-8.2) g/dL Albumin 1.7 L (3.5-5.0) g/dL Procalcitonin (0.02-0.09) ng/mL Vancomycin Trough ug/mL 02/08/23 02/08/23 02/08/23 Range/Units 06:00 07:07 10:35 RBC (3.80-5.40) m/uL Hgb (11.4-16.0) gm/dL Hct (34.0-46.0) % MCV (80.0-100.0) fL RDW (11.5-15.5) % Plt Count (150-450) k/uL Blast Cells % % Lymphocytes # (Manual) (1.0-4.8) k/uL Eosinophils # (Manual) (0-0.7) k/uL Blast Cells # (Man) (0) k/uL ABG pCO2 33 L (35-45) mmHg ABG pO2 74 L (83-108) mmHg Chloride (98-107) mmol/L Carbon Dioxide (22-30) mmol/L BUN (7-17) mg/dL Creatinine (0.52-1.04) mg/dL Glucose (74-99) mg/dL POC Glucose (mg/dL) 197 H (70-110) mg/dL Calcium (8.4-10.2) mg/dL AST (14-36) U/L Alkaline Phosphatase (38-126) U/L Total Protein (6.3-8.2) g/dL Albumin (3.5-5.0) g/dL Procalcitonin (0.02-0.09) ng/mL Vancomycin Trough 40.5 H* ug/mL 02/08/23 02/08/23 02/08/23 Range/Units 10:35 11:27 16:38 RBC (3.80-5.40) m/uL Hgb (11.4-16.0) gm/dL Hct (34.0-46.0) % MCV (80.0-100.0) fL RDW (11.5-15.5) % Plt Count (150-450) k/uL Blast Cells % % Lymphocytes # (Manual) (1.0-4.8) k/uL Eosinophils # (Manual) (0-0.7) k/uL Blast Cells # (Man) (0) k/uL ABG pCO2 (35-45) mmHg ABG pO2 (83-108) mmHg Chloride (98-107) mmol/L Carbon Dioxide (22-30) mmol/L BUN (7-17) mg/dL Creatinine (0.52-1.04) mg/dL Glucose (74-99) mg/dL POC Glucose (mg/dL) 174 H 146 H (70-110) mg/dL Calcium (8.4-10.2) mg/dL AST (14-36) U/L Alkaline Phosphatase (38-126) U/L Total Protein (6.3-8.2) g/dL Albumin (3.5-5.0) g/dL Procalcitonin 4.07 H (0.02-0.09) ng/mL Vancomycin Trough ug/mL Microbiology - Last 24 Hours (Table) 02/01/23 11:32 Blood Culture - Final Blood No Growth after 144 hours - Imaging and Cardiology Chest x-ray: image reviewed Assessment and Plan (1) Anemia Current Visit: Yes Status: Acute Priority: High Code(s): D64.9 - ANEMIA, UNSPECIFIED SNOMED Code(s): 631497890 (2) Rectal bleeding Current Visit: Yes Status: Acute Priority: High Code(s): K62.5 - HEMORRHAGE OF ANUS AND RECTUM SNOMED Code(s): 58896550 Plan: Anemia: -Hemoglobin 7.5 today following unit of packed red blood cells on 02/07/2023 for hemoglobin 6.6. Has received 4 units PRBCs since admission, last transfusion yesterday -Hx of GI bleeds. Anemia likely related to hematochezia. Denies blood in stool today -Iron studies obtained, iron 120, iron saturation 56%, ferritin 571. Likely elevated due to recent blood transfusions. Currently receiving ferrous sulfate 325 mg twice daily -Will continue to monitor. Please transfuse for hemoglobin less than 7 or if symptomatic GI bleed: -Hx of GI bleeds -EGD and colonoscopy on 12/17/22 showed no sign of acute GI bleed. -Surgery following. Repeat colonoscopy showed no acute GI bleed, but showed blood tinged stool and diverticular changes. Presumed to be diverticular bleeding. -Recommend to continue to hold eliquis/plavix/no NSAIDs Elevated blast cells: -Blast cells elevated, ranging from 1-9%. -Hx of multiple regimens of chemotherapy. Elevation in blast cells likely acute due to GI bleed and hx of chemotherapy. Plan was to continue to monitor blast cell counts as patient recovers, and f/u outpatient to repeat labs in 4 weeks once patient fully recovers. However, due to continued elevation in blasts, bone marrow biopsy performed on 02/03/2023, results pending -Clinic f/u appt in discharge plan Pulmonary edema -Noted to have increased respiratory distress on 02/07/2023 necessitating transfer to the ICU -Chest x-ray noting pulmonary edema -Unclear if this is related to flash pulmonary edema from cardiac etiology such as heart failure -We will defer management to primary ICU and consulting teams
[2023-02-08 18:57] LABS: ABG Base Excess -6.3 mmol/L; ABG HCO3 19 mmol/L (21-25); ABG Oxygen Saturation 96.3 % (94-97); ABG PCO2 33 mmHg (35-45); ABG PH 7.37 (7.35-7.45); ABG PO2 79 mmHg (83-108); ABG TCO2 20 mmol/L (19-24); Allen Test Performed? Yes
[2023-02-08] MEDS: ATORVASTATIN 40 MG TAB PO SCH (20:19)
[2023-02-08] MEDS: LACTATED RINGERS 1,000 ML IV SCH (20:20)
--- NOTE | 2023-02-08 20:20 | XR ---
EXAMINATION TYPE: XR chest 1V portable DATE OF EXAM: 02/08/2023 COMPARISON: Today HISTORY: Short of breath TECHNIQUE: Single view FINDINGS: Heart is enlarged. There is pulmonary interstitial and airspace edema. There are chest lead s. There is blunting of the costophrenic angles. The bony thorax is intact IMPRESSION: Pulmonary edema and pleural fluid increased compared to exam today and consistent with wo rsening heart failure.
[2023-02-08 20:23] LABS: Glucose,Whole Blood 151 mg/dL (70-110)
[2023-02-08] MEDS: BACLOFEN 10 MG TAB PO SCH (20:28)
[2023-02-09] MEDS: HYDROmorphone 1 MG/ML 1 ML SYRINGE IVP PRN ×2 (01:26→09:31)
[2023-02-09] MEDS: AZTREONAM 2 GM in SODIUM CHLORIDE 0.9% 100 ML IVPB SCH (01:27)
[2023-02-09 02:57] LABS: Anisocytosis Moderate; HGB 7.9 gm/dL (11.4-16.0); Hypochromasia Slight; MCH 25.2 pg (25.0-35.0); MCHC 31.4 g/dL (31.0-37.0); MCV 80.3 fL (80.0-100.0); Mean Platelet Volume 8.5; Microcytosis Moderate; Poikilocytosis Slight; RBC 3.12 m/uL (3.80-5.40); RDW 23.2 % (11.5-15.5)
[2023-02-09 02:59] LABS: Platelet Count 55 k/uL (150-450)
[2023-02-09 03:10] LABS: Calcium 6.6 mg/dL (8.4-10.2); Magnesium 2.2 mg/dL (1.6-2.3); Potassium 4.2 mmol/L (3.5-5.1)
[2023-02-09 04:06] LABS: Band Neutrophils % 2 %; Eosinophils # (M) 0.53 k/uL (0-0.7); Lymphocytes # (M) 0.27 k/uL (1.0-4.8); Monocytes # (M) 0.45 k/uL (0-1.0); Neutrophils % (M) 84 %; Nucleated Red Blood Cells 1 /100 WBC (0-0); Total Cells Counted 100; WBC 8.9 k/uL (3.8-10.6)
[2023-02-09] MEDS: FERROUS SULFATE 325 MG TAB PO SCH ×2 (06:41→16:51)
[2023-02-09 06:43] LABS: Glucose,Whole Blood 139 mg/dL (70-110)
[2023-02-09] MEDS: INSULIN ASPART (NovoLOG) 100 UNIT/ML VIAL SQ SCH ×4 (06:43→20:07)
[2023-02-09] MEDS: MIDODRINE 5 MG TAB PO SCH ×3 (06:48→16:51)
--- NOTE | 2023-02-09 07:01 | XR ---
EXAMINATION TYPE: XR chest 1V portable DATE OF EXAM: 02/09/2023 CLINICAL HISTORY: Difficulty breathing progress study. TECHNIQUE: Single AP portable upright view of the chest is obtained. COMPARISON: Chest x-ray from one day earlier and older studies FINDINGS: Stable left-sided PICC line. Persistent reticular increased opacities with more focal opacity through the mid to lower lungs bilat erally. Cardiac silhouette size stable and within normal limits overlying loop recorder redemonstrate d. Osseous structures are intact. IMPRESSION: Multifocal Bilateral edema and/or infiltrates redemonstrated with likely small bilateral pleural effusions. No significant change from 1 day earlier.
--- NOTE | 2023-02-09 07:43 | P.PN ---
Subjective Progress Note Date: 02/09/23 On today's evaluation of 02/09/2023, the patient is being seen for a follow-up. She is in obvious respiratory failure and the patient is currently on a BiPAP at a pressure of 12/7 cm of water with FiO2 of 100%. Pulse ox is in the order of 93-94%. She is very much dependent on the BiPAP and unable to come off the BiPAP because of significant desaturations. Generator tidal volume on the BiPAP machine is in the order of 800 mL with a respiratory rate of 25. Blood gases has not been done. Echocardiogram has not been repeated. The last blood gas that we have on this patient is from 02/08/2023 that showed impaired oxygenation with a PE or 2 of 79. Meanwhile, the most recent chest x-ray from today shows diffuse bilateral pulmonary infiltrates and there is no obvious area of consolidation in the right upper lobe. Nevertheless, the infiltrates are rather diffuse. Noted the patient had a mildly elevated pro-calcitonin level of 0.32 at the time of admission and her pro-calcitonin gradually went up to 4.07. At the same time, the patient developed an acute kidney injury. Creatinine today is up to 1.7 and she is not producing any urine output. Nephrology has been involved and the patient is being prepared to undergo hemodialysis after insertion of a hemodialysis catheter. She is on a Lasix drip running at 10 mg an hour without any success in improving the urine output. She is also on Zaroxolyn at a dose of 5 mg by mouth G today. Cardiac rhythm is sinus. Note that she has undergone a previous percutaneous transaortic aortic valve replacement and this was done in 2021. His sodium level is at 136 with a potassium level of 4.2. Serum bicarb is at 10. BMs at 75 with a creatinine of 1.7. The white cell count today's of 8.9 with a hemoglobin of 7.9. Platelet count has dropped onto 55. She is covered with antibiotics. She is on a combination of vancomycin and the trough being at around 40 and she is also on aztreonam. No cultures are available. Objective - Vital Signs Vital signs: Vital Signs Temp 99 F 02/08/23 20:00 Pulse 101 H 02/09/23 07:00 Resp 23 02/09/23 07:00 BP 97/49 02/09/23 07:00 Pulse Ox 93 L 03/27/23 07:00 FiO2 100 02/09/23 07:00 Intake & Output 02/08/23 02/09/23 02/09/23 18:59 06:59 18:59 Intake Total 826.876 459.5 Output Total 317 85 Balance 509.876 374.5 Intake: IV 482 349 0.9% @ KVO 120 130 Aztreonam 2 gm In Sodium 132 99 Chloride 0.9% 100 ml @ 33 .3 mls/hr IVPB Q8H [facility] Rx #:[id number] Furosemide 100 mg In 120 Sodium Chloride 0.9% 90 ml @ 10 MG/HR 10 mls/hr IV .Q10H [facility] Rx#: [id number] Invasive Line 4 30 Magnesium Sulfate-D5w Pmx 100 1 gm In Dextrose/Water 1 100ml.bag @ 100 mls/hr IVPB ONCE ONE Rx#: [id number] Potassium Chloride 10 meq 100 In Water For Injection 1 100ml.bag @ 100 mls/hr IVPB Q1H [facility] Rx#: [id number] Intake, IV Titration 344.876 110.5 Amount Aztreonam 2 gm In Sodium 33 33 Chloride 0.9% 100 ml @ 33 .3 mls/hr IVPB Q8H [facility] Rx #:[id number] Furosemide 100 mg In 161.833 77.5 Sodium Chloride 0.9% 90 ml @ 10 MG/HR 10 mls/hr IV .Q10H [facility] Rx#: [id number] Norepinephrine 8 mg In 150.043 Sodium Chloride 0.9% 250 ml @ 0.03 MCG/KG/MIN 4. 977 mls/hr IV .Q24H [facility] Rx#:[id number] Output: Urine 317 85 Other: Voiding Method Indwelling Catheter Indwelling Catheter # Bowel Movements 5 - Exam No acute distress, oriented 3. Currently on BiPAP. The patient is current on a pressures of 12/7 cm of water FiO2 100%. HEENT examination is grossly unremarkable. Neck supple. Full range of motion. No adenopathy thyromegaly or neck vein distention. Cardiovascular examination reveals regular rhythm rate. S1-S2 normal. No S3 or S4. No discernible murmur noted. Heart sounds are distant. Lungs reveal scattered bilateral rhonchi, and crackles. Breath sounds equal. No wheezes. Saturations are 93 % on BiPAP. Abdomen obese, but soft. Extremities are intact. No cyanosis or clubbing. Mild edema noted. Skin is without rash or lesion. Neurologic examination is brief but nonfocal. - Labs CBC & Chem 7: 02/09/23 02:04 02/09/23 02:04 Labs: Abnormal Lab Results - Last 24 Hours (Table) 02/08/23 02/08/23 02/08/23 Range/Units 10:35 10:35 11:27 RBC (3.80-5.40) m/uL Hgb (11.4-16.0) gm/dL Hct (34.0-46.0) % RDW (11.5-15.5) % Plt Count (150-450) k/uL Lymphocytes # (Manual) (1.0-4.8) k/uL Nucleated RBCs (0-0) /100 WBC ABG pCO2 (35-45) mmHg ABG pO2 (83-108) mmHg ABG HCO3 (21-25) mmol/L Sodium (137-145) mmol/L Chloride (98-107) mmol/L Carbon Dioxide (22-30) mmol/L BUN (7-17) mg/dL Creatinine (0.52-1.04) mg/dL Glucose (74-99) mg/dL POC Glucose (mg/dL) 174 H (70-110) mg/dL Calcium (8.4-10.2) mg/dL Troponin I (0.000-0.034) ng/mL Procalcitonin 4.07 H (0.02-0.09) ng/mL Vancomycin Trough 40.5 H* ug/mL 02/08/23 02/08/23 02/08/23 Range/Units 16:38 18:55 20:21 RBC (3.80-5.40) m/uL Hgb (11.4-16.0) gm/dL Hct (34.0-46.0) % RDW (11.5-15.5) % Plt Count (150-450) k/uL Lymphocytes # (Manual) (1.0-4.8) k/uL Nucleated RBCs (0-0) /100 WBC ABG pCO2 33 L (35-45) mmHg ABG pO2 79 L (83-108) mmHg ABG HCO3 19 L (21-25) mmol/L Sodium (137-145) mmol/L Chloride (98-107) mmol/L Carbon Dioxide (22-30) mmol/L BUN (7-17) mg/dL Creatinine (0.52-1.04) mg/dL Glucose (74-99) mg/dL POC Glucose (mg/dL) 146 H 151 H (70-110) mg/dL Calcium (8.4-10.2) mg/dL Troponin I (0.000-0.034) ng/mL Procalcitonin (0.02-0.09) ng/mL Vancomycin Trough ug/mL 02/09/23 02/09/23 02/09/23 Range/Units 02:04 02:04 02:04 RBC 3.12 L (3.80-5.40) m/uL Hgb 7.9 L (11.4-16.0) gm/dL Hct 25.0 L (34.0-46.0) % RDW 23.2 H (11.5-15.5) % Plt Count 55 L (150-450) k/uL Lymphocytes # (Manual) 0.27 L (1.0-4.8) k/uL Nucleated RBCs 1 H (0-0) /100 WBC ABG pCO2 (35-45) mmHg ABG pO2 (83-108) mmHg ABG HCO3 (21-25) mmol/L Sodium 136 L (137-145) mmol/L Chloride 108 H (98-107) mmol/L Carbon Dioxide 18 L (22-30) mmol/L BUN 79 H (7-17) mg/dL Creatinine 1.75 H (0.52-1.04) mg/dL Glucose 114 H (74-99) mg/dL POC Glucose (mg/dL) (70-110) mg/dL Calcium 6.6 L (8.4-10.2) mg/dL Troponin I 0.085 H* (0.000-0.034) ng/mL Procalcitonin (0.02-0.09) ng/mL Vancomycin Trough ug/mL 02/09/23 Range/Units 06:42 RBC (3.80-5.40) m/uL Hgb (11.4-16.0) gm/dL Hct (34.0-46.0) % RDW (11.5-15.5) % Plt Count (150-450) k/uL Lymphocytes # (Manual) (1.0-4.8) k/uL Nucleated RBCs (0-0) /100 WBC ABG pCO2 (35-45) mmHg ABG pO2 (83-108) mmHg ABG HCO3 (21-25) mmol/L Sodium (137-145) mmol/L Chloride (98-107) mmol/L Carbon Dioxide (22-30) mmol/L BUN (7-17) mg/dL Creatinine (0.52-1.04) mg/dL Glucose (74-99) mg/dL POC Glucose (mg/dL) 139 H (70-110) mg/dL Calcium (8.4-10.2) mg/dL Troponin I (0.000-0.034) ng/mL Procalcitonin (0.02-0.09) ng/mL Vancomycin Trough ug/mL Assessment and Plan Plan: Acute hypoxemic respiratory failure, with progressive shortness of breath, and worsening saturations, likely multifactorial, in part related to fluid overload, as well as possible pneumonia, left midlung and left perihilar region. There is extensive consolidation of the right upper lobe. Patient is producing thick purulent sputum. At the same time, the patient's pro-calcitonin level has been progressively on the rise. I reviewed the chest x-ray at time of admission on 01/28/2023 and the patient has only small bilateral pleural effusions without any significant pulmonary infiltration. Her condition is progressed and the patient has a diffuse bilateral pulmonary infiltrates at this point in time. Initial admission to hospital for GI bleeding, with negative colonoscopy. Hemoglobin is stable Transcatheter aortic valve replacement, March 2022. History of atrial fibrillation. The current cardiac rhythm is sinus History of CAD. History of CVA. History of COPD, secondary to ongoing tobacco use with nicotine addiction. Diabetes mellitus. GERD. Hyperlipidemia. History of hypertension. History of obstructive sleep apnea syndrome. History of cervical cancer. Acute kidney injury, failed Lasix drip which is running at 10 mg an hour in combination with Zaroxolyn, and the patient's may have an ATN, consider v ancomycin-induced toxicity. Acute thrombocytopenia in combination with increased blasts, based on that, the patient has undergone and no hussein biopsy. There was a concern towards elevated blast which was as high as 8% reported reasonable medical biopsy was done. Results are still pending for now. Plan: Continue BiPAP for now with a high risk of this patient requiring intubation mechanical ventilation. obtain a blood gas Obtain echocardiogram as soon as possible Dialysis catheter to be inserted today in preparation for hemodialysis Obtain sputum Gram stain and culture Add IV meropenem 1 g every 12 hours Continue vancomycin and adjust the dose based on the trough levels Discontinue IV aztreonam Obtain the report of the final bone marrow biopsy Condition is obviously very critical We'll continue to follow Critical care evaluation, > 30 min Time with Patient: Greater than 30
[2023-02-09] MEDS ORDERED: LIDOCAINE 2% SYG (PF) 100 MG/5 ML ONE (08:05)
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
--- NOTE | 2023-02-09 08:21 | P.PCN ---
Description of Procedure: Preoperative diagnosis acute kidney injury Postop same Procedure ultrasound-guided dialysis catheter placement right femoral approach patient was seen in the room right groin was prepped and draped applied sterile manner 1% lidocaine for groin area. Ultrasound-guided micropuncture introducer right femoral vein micropuncture guidewire was passed and 4-[place] dilator advanced top the guidewire. Then we passed a regular guidewire without any resistance dilator was advanced on the top the guidewire. Then place dialysis catheter on the top of the guidewire guidewire was removed flushed with heparin saline and Hep-Lock secured with 2-0 nylon patient tolerated the procedure well
[2023-02-09] MEDS: HEPARIN SODIUM,PORCINE/PF 5,000 UNIT/0.5 ML SYRINGE SQ SCH ×2 (08:24→19:59)
[2023-02-09] MEDS: BUDESONIDE 1 MG/2 ML NEBU INHALATION SCH ×2 (08:28→19:40)
[2023-02-09] MEDS: IPRATROPIUM-ALBUTEROL 3 ML NEB INHALATION SCH ×4 (08:28→19:40)
[2023-02-09] MEDS: FORMOTEROL FUMARATE 20 MCG/2 ML NEBU INHALATION SCH ×2 (08:48→19:40)
[2023-02-09] MEDS: METOPROLOL TARTRATE 25 MG TAB PO SCH ×2 (09:24→20:08)
[2023-02-09] MEDS: SERTRALINE 50 MG TAB PO SCH (09:24)
[2023-02-09] MEDS: metOLazone 5 MG TAB PO SCH (09:24)
[2023-02-09] MEDS: PANTOPRAZOLE 40 MG/10 ML VIAL IVP SCH ×2 (09:24→20:07)
[2023-02-09] MEDS: FUROSEMIDE 100 MG in SODIUM CHLORIDE 0.9% 90 ML IV SCH (09:34)
[2023-02-09] MEDS: MEROPENEM 1 GM in SODIUM CHLORIDE 0.9% 100 ML IVPB SCH ×2 (09:35→20:33)
[2023-02-09] MEDS: SIMETHICONE 80 MG CHEWABLE PO SCH ×4 (09:44→20:34)
[2023-02-09 11:25] LABS: Glucose,Whole Blood 152 mg/dL (70-110)
[2023-02-09 11:47] LABS: INR 1.5 (<1.2); Partial Thromboplastin Time 36.4 sec (22.0-30.0); Prothrombin Time 14.7 sec (9.0-12.0)
--- NOTE | 2023-02-09 12:08 | P.PN ---
Subjective Progress Note Date: 02/09/23 Principal diagnosis: anemia/elevated blast cells Upon visit today patient is resting in bed. She reports SOB nut states breathing is improving. She is still on BiPAP. Breathing labored. Nurse reports despite IV drip lasix, pt is producing no urinary output, plan for dialysis today. No other reported complaints Objective - Vital Signs Vital signs: Vital Signs Temp 98.0 F 02/09/23 08:00 Pulse 110 H 02/09/23 10:00 Resp 22 02/09/23 10:00 BP 113/63 02/09/23 10:00 Pulse Ox 92 L 02/09/23 10:00 FiO2 100 02/09/23 08:31 Intake & Output 02/08/23 02/09/23 02/09/23 18:59 06:59 18:59 Intake Total 826.876 459.5 260 Output Total 317 85 0 Balance 509.876 374.5 260 Weight 85.729 kg Intake: IV 482 349 160 0.9% @ KVO 120 130 30 Aztreonam 2 gm In Sodium 132 99 Chloride 0.9% 100 ml @ 33 .3 mls/hr IVPB Q8H [facility] Rx #:[id number] Furosemide 100 mg In 120 30 Sodium Chloride 0.9% 90 ml @ 10 MG/HR 10 mls/hr IV .Q10H [facility] Rx#: [id number] Invasive Line 4 30 Magnesium Sulfate-D5w Pmx 100 1 gm In Dextrose/Water 1 100ml.bag @ 100 mls/hr IVPB ONCE ONE Rx#: [id number] Meropenem 1 gm In Sodium 100 Chloride 0.9% 100 ml @ 33 .3 mls/hr IVPB Q12HR [facility] Rx#:[id number] Potassium Chloride 10 meq 100 In Water For Injection 1 100ml.bag @ 100 mls/hr IVPB Q1H [facility] Rx#: [id number] Intake, IV Titration 344.876 110.5 100 Amount Aztreonam 2 gm In Sodium 33 33 Chloride 0.9% 100 ml @ 33 .3 mls/hr IVPB Q8H [facility] Rx #:[id number] Furosemide 100 mg In 161.833 77.5 100 Sodium Chloride 0.9% 90 ml @ 10 MG/HR 10 mls/hr IV .Q10H [facility] Rx#: [id number] Norepinephrine 8 mg In 150.043 Sodium Chloride 0.9% 250 ml @ 0.03 MCG/KG/MIN 4. 977 mls/hr IV .Q24H [facility] Rx#:[id number] Output: Urine 317 85 0 Other: Voiding Method Indwelling Catheter Indwelling Catheter Indwelling Catheter # Bowel Movements 5 - Constitutional General appearance: Present: average body habitus, mild distress - EENT Eyes: Present: anicteric sclerae, EOMI ENT: Present: hearing grossly normal - Respiratory Details: breathing labored - Cardiovascular Details: skin warm and dry - Peripheral edema leg Peripheral Edema: bilateral: None - Integumentary Integumentary: Present: pale - Musculoskeletal Musculoskeletal: Present: generalized weakness - Psychiatric Psychiatric: Present: A&O x's 3, appropriate affect, intact judgment & insight - Labs CBC & Chem 7: 02/09/23 02:04 02/09/23 02:04 Labs: Abnormal Lab Results - Last 24 Hours (Table) 02/08/23 02/08/23 02/08/23 Range/Units 10:35 16:38 18:55 RBC (3.80-5.40) m/uL Hgb (11.4-16.0) gm/dL Hct (34.0-46.0) % RDW (11.5-15.5) % Plt Count (150-450) k/uL Lymphocytes # (Manual) (1.0-4.8) k/uL Nucleated RBCs (0-0) /100 WBC PT (9.0-12.0) sec INR (<1.2) APTT (22.0-30.0) sec Fibrinogen (200-500) mg/dL ABG pCO2 33 L (35-45) mmHg ABG pO2 79 L (83-108) mmHg ABG HCO3 19 L (21-25) mmol/L Sodium (137-145) mmol/L Chloride (98-107) mmol/L Carbon Dioxide (22-30) mmol/L BUN (7-17) mg/dL Creatinine (0.52-1.04) mg/dL Glucose (74-99) mg/dL POC Glucose (mg/dL) 146 H (70-110) mg/dL Calcium (8.4-10.2) mg/dL Troponin I (0.000-0.034) ng/mL Procalcitonin 4.07 H (0.02-0.09) ng/mL 02/08/23 02/09/23 02/09/23 Range/Units 20:21 02:04 02:04 RBC 3.12 L (3.80-5.40) m/uL Hgb 7.9 L (11.4-16.0) gm/dL Hct 25.0 L (34.0-46.0) % RDW 23.2 H (11.5-15.5) % Plt Count 55 L (150-450) k/uL Lymphocytes # (Manual) 0.27 L (1.0-4.8) k/uL Nucleated RBCs 1 H (0-0) /100 WBC PT (9.0-12.0) sec INR (<1.2) APTT (22.0-30.0) sec Fibrinogen (200-500) mg/dL ABG pCO2 (35-45) mmHg ABG pO2 (83-108) mmHg ABG HCO3 (21-25) mmol/L Sodium 136 L (137-145) mmol/L Chloride 108 H (98-107) mmol/L Carbon Dioxide 18 L (22-30) mmol/L BUN 79 H (7-17) mg/dL Creatinine 1.75 H (0.52-1.04) mg/dL Glucose 114 H (74-99) mg/dL POC Glucose (mg/dL) 151 H (70-110) mg/dL Calcium 6.6 L (8.4-10.2) mg/dL Troponin I (0.000-0.034) ng/mL Procalcitonin (0.02-0.09) ng/mL 02/09/23 02/09/23 02/09/23 Range/Units 02:04 06:42 10:19 RBC (3.80-5.40) m/uL Hgb (11.4-16.0) gm/dL Hct (34.0-46.0) % RDW (11.5-15.5) % Plt Count (150-450) k/uL Lymphocytes # (Manual) (1.0-4.8) k/uL Nucleated RBCs (0-0) /100 WBC PT 14.7 H (9.0-12.0) sec INR 1.5 H (<1.2) APTT 36.4 H (22.0-30.0) sec Fibrinogen 787 H (200-500) mg/dL ABG pCO2 (35-45) mmHg ABG pO2 (83-108) mmHg ABG HCO3 (21-25) mmol/L Sodium (137-145) mmol/L Chloride (98-107) mmol/L Carbon Dioxide (22-30) mmol/L BUN (7-17) mg/dL Creatinine (0.52-1.04) mg/dL Glucose (74-99) mg/dL POC Glucose (mg/dL) 139 H (70-110) mg/dL Calcium (8.4-10.2) mg/dL Troponin I 0.085 H* (0.000-0.034) ng/mL Procalcitonin (0.02-0.09) ng/mL 02/09/23 Range/Units 11:13 RBC (3.80-5.40) m/uL Hgb (11.4-16.0) gm/dL Hct (34.0-46.0) % RDW (11.5-15.5) % Plt Count (150-450) k/uL Lymphocytes # (Manual) (1.0-4.8) k/uL Nucleated RBCs (0-0) /100 WBC PT (9.0-12.0) sec INR (<1.2) APTT (22.0-30.0) sec Fibrinogen (200-500) mg/dL ABG pCO2 (35-45) mmHg ABG pO2 (83-108) mmHg ABG HCO3 (21-25) mmol/L Sodium (137-145) mmol/L Chloride (98-107) mmol/L Carbon Dioxide (22-30) mmol/L BUN (7-17) mg/dL Creatinine (0.52-1.04) mg/dL Glucose (74-99) mg/dL POC Glucose (mg/dL) 152 H (70-110) mg/dL Calcium (8.4-10.2) mg/dL Troponin I (0.000-0.034) ng/mL Procalcitonin (0.02-0.09) ng/mL Assessment and Plan (1) Abnormal CBC Current Visit: Yes Status: Acute Priority: High Code(s): R79.89 - OTHER SPECIFIED ABNORMAL FINDINGS OF BLOOD CHEMISTRY SNOMED Code(s): 210658005 (2) Acute diverticulitis Current Visit: Yes Status: Acute Priority: High Code(s): K57.92 - DVTRCLI OF INTEST, PART UNSP, W/O PERF OR ABSCESS W/O BLEED SNOMED Code(s): 556386831 (3) Anemia Current Visit: Yes Status: Acute Priority: High Code(s): D64.9 - ANEMIA, UNSPECIFIED SNOMED Code(s): 019590999 (4) Rectal bleeding Current Visit: Yes Status: Acute Priority: High Code(s): K62.5 - HEMORRHAGE OF ANUS AND RECTUM SNOMED Code(s): 17527555 Plan: Anemia: -Hemoglobin 7.9 today. Has received 4 units PRBCs since admission, last transfusion 02/07 -Hx of GI bleeds. Anemia likely related to hematochezia. Denies blood in stool today -Iron studies obtained, iron 120, iron saturation 56%, ferritin 571. Likely elevated due to recent blood transfusions. 2 doses IV iron have been given -DIC workup ordered -Will continue to monitor. Please transfuse for hemoglobin less than 7 or if symptomatic GI bleed: -Hx of GI bleeds -EGD and colonoscopy on 12/17/22 showed no sign of acute GI bleed. -Surgery following. Repeat colonoscopy showed no acute GI bleed, but showed blood tinged stool and diverticular changes. Presumed to be diverticular bleeding. -Recommend to continue to hold eliquis/plavix/no NSAIDs. Elevated blast cells: -Blast cells elevated, ranging from 1-9%. -Hx of multiple regimens of chemotherapy. Elevation in blast cells likely acute due to GI bleed and hx of chemotherapy. Plan was to continue to monitor blast cell counts as patient recovers, and f/u outpatient to repeat labs in 4 weeks once patient fully recovers. However, due to continued elevation in blasts, bone marrow biopsy was obtained, results pending -Clinic f/u appt in discharge plan
[2023-02-09 12:15] LABS: Hepatitis B Surface AB- Quant 3.5 mIU/mL; Hepatitis B Surface Antibody Nonreactive (Nonreactive)
[2023-02-09 12:21] LABS: Hepatitis B Surface Antigen Nonreactive (Nonreactive)
[2023-02-09] MEDS: NOREPINEPHRINE 8 MG in SODIUM CHLORIDE 0.9% 250 ML IV SCH (12:36)
--- NOTE | 2023-02-09 12:43 | P.PN ---
Subjective Patient is seen for follow-up for acute kidney injury and hyponatremia. Renal function had improved with correction of hyponatremia as well however, patient was transferred to ICU due to acute hypoxic respiratory failure secondary to volume overload and pneumonia needing BiPAP on 02/07/2023 Blood pressure had dropped and patient is currently on pressors. Urine output has also been low overnight with no improvement in urine output in spite of Lasix drip. Vancomycin was held yesterday and the level did come back elevated at 40.5 Renal replacement therapy was discussed with the patient and patient is agreeable. Dialysis catheter was placed this morning and patient will be dialyzed today. Patient remains on BiPAP with no urine output with Lasix drip and Zaroxolyn. Levo fed is currently off. Mentation is intact. Objective - Vital Signs Vital signs: Vital Signs Temp 98.0 F 02/09/23 08:00 Pulse 86 02/09/23 12:24 Resp 22 02/09/23 10:00 BP 113/63 02/09/23 10:00 Pulse Ox 92 L 02/09/23 10:00 FiO2 100 02/09/23 12:16 Intake & Output 02/08/23 02/09/23 02/09/23 18:59 06:59 18:59 Intake Total 826.876 459.5 260 Output Total 317 85 0 Balance 509.876 374.5 260 Weight 85.729 kg Intake: IV 482 349 160 0.9% @ KVO 120 130 30 Aztreonam 2 gm In Sodium 132 99 Chloride 0.9% 100 ml @ 33 .3 mls/hr IVPB Q8H [facility] Rx #:[id number] Furosemide 100 mg In 120 30 Sodium Chloride 0.9% 90 ml @ 10 MG/HR 10 mls/hr IV .Q10H [facility] Rx#: [id number] Invasive Line 4 30 Magnesium Sulfate-D5w Pmx 100 1 gm In Dextrose/Water 1 100ml.bag @ 100 mls/hr IVPB ONCE ONE Rx#: [id number] Meropenem 1 gm In Sodium 100 Chloride 0.9% 100 ml @ 33 .3 mls/hr IVPB Q12HR [facility] Rx#:[id number] Potassium Chloride 10 meq 100 In Water For Injection 1 100ml.bag @ 100 mls/hr IVPB Q1H [facility] Rx#: [id number] Intake, IV Titration 344.876 110.5 100 Amount Aztreonam 2 gm In Sodium 33 33 Chloride 0.9% 100 ml @ 33 .3 mls/hr IVPB Q8H [facility] Rx #:[id number] Furosemide 100 mg In 161.833 77.5 100 Sodium Chloride 0.9% 90 ml @ 10 MG/HR 10 mls/hr IV .Q10H [facility] Rx#: [id number] Norepinephrine 8 mg In 150.043 Sodium Chloride 0.9% 250 ml @ 0.03 MCG/KG/MIN 4. 977 mls/hr IV .Q24H [facility] Rx#:[id number] Output: Urine 317 85 0 Other: Voiding Method Indwelling Catheter Indwelling Catheter Indwelling Catheter # Bowel Movements 5 - Exam Patient is awake, no acute distress Currently on BiPAP Examination of the heart S1 and S2 Examination the lungs decreased breath sounds at the bases with basilar crackles heard Abdomen is soft obese Examination of lower extremity shows edema 1+ bilaterally - Labs CBC & Chem 7: 02/09/23 02:04 02/09/23 02:04 Labs: Abnormal Lab Results - Last 24 Hours (Table) 02/08/23 02/08/23 02/08/23 Range/Units 10:35 16:38 18:55 RBC (3.80-5.40) m/uL Hgb (11.4-16.0) gm/dL Hct (34.0-46.0) % RDW (11.5-15.5) % Plt Count (150-450) k/uL Lymphocytes # (Manual) (1.0-4.8) k/uL Nucleated RBCs (0-0) /100 WBC PT (9.0-12.0) sec INR (<1.2) APTT (22.0-30.0) sec Fibrinogen (200-500) mg/dL ABG pCO2 33 L (35-45) mmHg ABG pO2 79 L (83-108) mmHg ABG HCO3 19 L (21-25) mmol/L Sodium (137-145) mmol/L Chloride (98-107) mmol/L Carbon Dioxide (22-30) mmol/L BUN (7-17) mg/dL Creatinine (0.52-1.04) mg/dL Glucose (74-99) mg/dL POC Glucose (mg/dL) 146 H (70-110) mg/dL Calcium (8.4-10.2) mg/dL Troponin I (0.000-0.034) ng/mL Procalcitonin 4.07 H (0.02-0.09) ng/mL 02/08/23 02/09/23 02/09/23 Range/Units 20:21 02:04 02:04 RBC 3.12 L (3.80-5.40) m/uL Hgb 7.9 L (11.4-16.0) gm/dL Hct 25.0 L (34.0-46.0) % RDW 23.2 H (11.5-15.5) % Plt Count 55 L (150-450) k/uL Lymphocytes # (Manual) 0.27 L (1.0-4.8) k/uL Nucleated RBCs 1 H (0-0) /100 WBC PT (9.0-12.0) sec INR (<1.2) APTT (22.0-30.0) sec Fibrinogen (200-500) mg/dL ABG pCO2 (35-45) mmHg ABG pO2 (83-108) mmHg ABG HCO3 (21-25) mmol/L Sodium 136 L (137-145) mmol/L Chloride 108 H (98-107) mmol/L Carbon Dioxide 18 L (22-30) mmol/L BUN 79 H (7-17) mg/dL Creatinine 1.75 H (0.52-1.04) mg/dL Glucose 114 H (74-99) mg/dL POC Glucose (mg/dL) 151 H (70-110) mg/dL Calcium 6.6 L (8.4-10.2) mg/dL Troponin I (0.000-0.034) ng/mL Procalcitonin (0.02-0.09) ng/mL 02/09/23 02/09/23 02/09/23 Range/Units 02:04 06:42 10:19 RBC (3.80-5.40) m/uL Hgb (11.4-16.0) gm/dL Hct (34.0-46.0) % RDW (11.5-15.5) % Plt Count (150-450) k/uL Lymphocytes # (Manual) (1.0-4.8) k/uL Nucleated RBCs (0-0) /100 WBC PT 14.7 H (9.0-12.0) sec INR 1.5 H (<1.2) APTT 36.4 H (22.0-30.0) sec Fibrinogen 787 H (200-500) mg/dL ABG pCO2 (35-45) mmHg ABG pO2 (83-108) mmHg ABG HCO3 (21-25) mmol/L Sodium (137-145) mmol/L Chloride (98-107) mmol/L Carbon Dioxide (22-30) mmol/L BUN (7-17) mg/dL Creatinine (0.52-1.04) mg/dL Glucose (74-99) mg/dL POC Glucose (mg/dL) 139 H (70-110) mg/dL Calcium (8.4-10.2) mg/dL Troponin I 0.085 H* (0.000-0.034) ng/mL Procalcitonin (0.02-0.09) ng/mL 02/09/23 Range/Units 11:13 RBC (3.80-5.40) m/uL Hgb (11.4-16.0) gm/dL Hct (34.0-46.0) % RDW (11.5-15.5) % Plt Count (150-450) k/uL Lymphocytes # (Manual) (1.0-4.8) k/uL Nucleated RBCs (0-0) /100 WBC PT (9.0-12.0) sec INR (<1.2) APTT (22.0-30.0) sec Fibrinogen (200-500) mg/dL ABG pCO2 (35-45) mmHg ABG pO2 (83-108) mmHg ABG HCO3 (21-25) mmol/L Sodium (137-145) mmol/L Chloride (98-107) mmol/L Carbon Dioxide (22-30) mmol/L BUN (7-17) mg/dL Creatinine (0.52-1.04) mg/dL Glucose (74-99) mg/dL POC Glucose (mg/dL) 152 H (70-110) mg/dL Calcium (8.4-10.2) mg/dL Troponin I (0.000-0.034) ng/mL Procalcitonin (0.02-0.09) ng/mL Assessment and Plan Assessment: 1. Acute kidney injury initially prerenal secondary to acute blood loss anemia and hypotension and IV contrast. Renal function had improved with creatinine down to 0.8 mg/dL. Serum creatinine has increased again with poor urine output secondary to hypotension and vancomycin toxicity. UA benign. No h ydronephrosis noted on imaging. no improvement in urine output with Lasix drip. Patient is started on hemodialysis on 02/09/2023. 2. Acute GI bleed status post blood transfusion this admission. No active bleeding noted on colonoscopy. Hemoglobin 7.9 today. Hematology and surgery following. Underwent bone marrow aspiration this admission. Status post blood transfusions this admission. 3. Hyponatremia. Hypervolemic. Improved 4. Hypomagnesemia from GI losses and poor intake. Replaced. 5. Hypokalemia from poor intake and hypomagnesemia. Replaced. 6. Volume overload. No response to Lasix drip. Patient will be started on hemodialysis today 7. Acute hypoxic respiratory failure maintained on BiPAP Plan: Hemodialysis today and then again in a.m. DC Lasix drip Continue with midodrine
--- NOTE | 2023-02-09 13:29 | CA ---
Transthoracic Echo Report Name: Milka Floyd Age: 72 Gender: F : 1950 Exam Date: 02/09/2023 08:32 Exam Location: [facility] Ht (in): 66 Wt (lb): 189 Ordering Physician: Mireya Caballero MD Attending/Referring Phys: Architecture Consultant Mynor Padilla RDCS Procedure CPT: Indications: lv [id number] Cardiac Hx: MS; MR; ; HTN; CAD; Technical Quality: Fair Contrast 1: Total Dose (mL): Contrast 2: Total Dose (mL): MEASUREMENTS (Male / Female) Normal Values 2D ECHO LV Diastolic Diameter PLAX 4.9 cm 4.2 - 5.9 / 3.9 - 5.3 cm LV Systolic Diameter PLAX 3.4 cm LV Fractional Shortening PLAX 29.3 % IVS Diastolic Thickness 1.2 cm 0.6 - 1.0 / 0.6 - 0.9 cm IVS Systolic Thickness 1.7 cm LVPW Diastolic Thickness 1.2 cm 0.6 - 1.0 / 0.6 - 0.9 cm LVPW Systolic Thickness 1.4 cm LV Relative Wall Thickness 0.5 RV Internal Dim ED PLAX 3.3 cm LVOT Diameter 1.8 cm LA Systolic Diameter LX 3.7 cm 3.0 - 4.0 / 2.7 - 3.8 cm LV Diastolic Volume MOD BP 68.1 cm??? 67 - 155 / 56 - 104 cm??? LV Systolic Volume MOD BP 49.7 cm??? 22 - 58 / 19 - 49 cm??? LV Ejection Fraction MOD BP 27.0 % >= 55 % LV Stroke Volume MOD BP 18.4 cm??? LV Diastolic Volume MOD 4C 61.9 cm??? LV Systolic Volume MOD 4C 38.1 cm??? LV Ejection Fraction MOD 4C 38.4 % LV Stroke Volume MOD 4C 23.8 cm??? LV Diastolic Length 4C 7.3 cm LV Systolic Length 4C 6.1 cm LV Diastolic Volume MOD 2C 73.4 cm??? LV Systolic Volume MOD 2C 59.7 cm??? LV Ejection Fraction MOD 2C 18.7 % LV Stroke Volume MOD 2C 13.7 cm??? LV Diastolic Length 2C 7.2 cm LV Systolic Length 2C 6.7 cm Ascending Aorta Diameter 1.5 cm M-MODE Aortic Root Diameter MM 2.2 cm LA Systolic Diameter MM 4.3 cm LA Ao Ratio MM 1.9 MV E Point Septal Separation 1.2 cm AV Cusp Separation MM 1.1 cm DOPPLER AV Peak Velocity 445.9 cm/s AV Peak Gradient 79.5 mmHg AV Mean Velocity 271.6 cm/s AV Mean Gradient 34.8 mmHg AV Velocity Time Integral 75.2 cm LVOT Peak Velocity 167.8 cm/s LVOT Peak Gradient 11.3 mmHg AV Area Cont Eq pk 1.0 cm??? MV Peak Velocity 183.5 cm/s MV Peak Gradient 13.5 mmHg MV Mean Velocity 131.9 cm/s MV Mean Gradient 7.3 mmHg MV Velocity Time Integral 49.3 cm MV Deceleration [place] 492.1 cm/s??? MR Peak Velocity 321.5 cm/s MR Peak Gradient 41.3 mmHg MR Mean Velocity 251.4 cm/s MR Mean Gradient 28.6 mmHg MR Velocity Time Integral 80.0 cm Mitral E Point Velocity 138.4 cm/s Mitral A Point Velocity 167.4 cm/s Mitral E to A Ratio 0.8 MV Deceleration Time 281.2 ms MV E' Velocity 7.4 cm/s Mitral E to MV E' Ratio 18.6 TR Peak Velocity 365.8 cm/s TR Peak Gradient 53.5 mmHg Right Ventricular Systolic Press 61.5 mmHg FINDINGS Left Ventricle Left ventricular ejection fraction is estimated at 65 %. Moderate concentric left ventricular hypertrophy. Hyperdynamic left ventricular systolic function. Right Ventricle Mild right ventricular dilatation. RVSP- 61 mm Hg. moderate right ventricular hypertrophy Right Atrium Mild right atrial dilatation. Left Atrium Mild left atrial dilatation. Mitral Valve Severe thickening/calcification of the anterior mitral valve leaflet. Severe thickening/calcification of the posterior mitral valve leaflet. Moderate subvalvular mitral calcification. Xjnd-fm-yvswsyhy mitral regurgitation. Mild- to-moderate mitral stenosis. Aortic Valve Trileaflet aortic valve. Focal thickening of the aortic valve cusps. Diffuse thickening (sclerosis) of the aortic valve cusps without reduced excursion. Moderate to severe aortic stenosis with a peak gradient of 79.5 mmHg and a mean gradient of 34.8 mmHg. AV max-445.8cm/s Tricuspid Valve Myxomatous (redundant) tricuspid valve. [id number] tricuspid regurgitation. Pulmonic Valve Pulmonic valve not well visualized. Pericardium Small generalized pericardial effusion Aorta Normal size aortic root and proximal ascending aorta. CONCLUSIONS Left ventricular ejection fraction 65% with near complete obliteration of LV cavity Moderate left ventricular hypertrophy Moderate right ventricular hypertrophy RVSP 61 Moderate to severe mitral annular calcification Mild to moderate mitral regurgitation Mild to moderate mitral stenosis Moderate to severe aortic stenosis, cannot rule out component of LVOT gradient. Consider HERMINIO if clinically indicated Mild to moderate tricuspid regurgitation Small generalized pericardial effusion Previewed by: Dr. Jose Caballero DO (Electronically Signed) Final Date: 09 February 2023 13:28
[2023-02-09 16:33] LABS: Glucose,Whole Blood 128 mg/dL (70-110)
[2023-02-09] MEDS: HYDROcodone/APAP 5-325MG 1 EACH TAB PO PRN ×2 (16:51→23:10)
--- NOTE | 2023-02-09 18:32 | P.PN ---
Subjective Progress Note Date: 02/09/23 Principal diagnosis: Fever possible pneumonia Patient is a 72-year-old female with a past medical history significant for hypertension hyperlipidemia diabetes mellitus CVA TIA cervical cancer did have a history of atrial fibrillation on anticoagulation presenting to the hospital on 01/22/2023 for evaluation of rectal bleeding , patient diagnosed with diverticulitis and has been treated with Levaquin and Flagyl, patient did have persistent fever requiring infectious disease consultation patient also have worsening of respiratory status requiring transplant ICU and did catheter right groin dialysis catheter started on dialysis as of 02/09/2023 On today's evaluation early 02/09/2023, the patient continues to be afebrile, the patient remains to be BiPAP dependent and is requiring 100% FiO2 patient also requiring a low dose Levophed to maintain her blood pressure, no vomiting diarrhea or any other changes reported by the nursing staff patient seemed to be slightly more awake today and he tried to answer some questions Objective - Vital Signs Vital signs: Vital Signs Temp 98.0 F 02/09/23 08:00 Pulse 86 02/09/23 12:24 Resp 22 02/09/23 10:00 BP 113/63 02/09/23 10:00 Pulse Ox 92 L 02/09/23 10:00 FiO2 100 02/09/23 12:16 Intake & Output 02/08/23 02/09/23 02/09/23 18:59 06:59 18:59 Intake Total 826.876 459.5 260 Output Total 317 85 0 Balance 509.876 374.5 260 Weight 85.729 kg Intake: IV 482 349 160 0.9% @ KVO 120 130 30 Aztreonam 2 gm In Sodium 132 99 Chloride 0.9% 100 ml @ 33 .3 mls/hr IVPB Q8H [facility] Rx #:[id number] Furosemide 100 mg In 120 30 Sodium Chloride 0.9% 90 ml @ 10 MG/HR 10 mls/hr IV .Q10H [facility] Rx#: [id number] Invasive Line 4 30 Magnesium Sulfate-D5w Pmx 100 1 gm In Dextrose/Water 1 100ml.bag @ 100 mls/hr IVPB ONCE ONE Rx#: [id number] Meropenem 1 gm In Sodium 100 Chloride 0.9% 100 ml @ 33 .3 mls/hr IVPB Q12HR [facility] Rx#:[id number] Potassium Chloride 10 meq 100 In Water For Injection 1 100ml.bag @ 100 mls/hr IVPB Q1H COUNT INCLUDES THE [facility] Rx#: [id number] Intake, IV Titration 344.876 110.5 100 Amount Aztreonam 2 gm In Sodium 33 33 Chloride 0.9% 100 ml @ 33 .3 mls/hr IVPB Q8H COUNT INCLUDES THE [facility] Rx #:[id number] Furosemide 100 mg In 161.833 77.5 100 Sodium Chloride 0.9% 90 ml @ 10 MG/HR 10 mls/hr IV .Q10H COUNT INCLUDES THE [facility] Rx#: [id number] Norepinephrine 8 mg In 150.043 Sodium Chloride 0.9% 250 ml @ 0.03 MCG/KG/MIN 4. 977 mls/hr IV .Q24H COUNT INCLUDES THE [facility] Rx#:[id number] Output: Urine 317 85 0 Other: Voiding Method Indwelling Catheter Indwelling Catheter Indwelling Catheter # Bowel Movements 5 - Exam GENERAL DESCRIPTION: An elderly female lying in bed in no distress RESPIRATORY SYSTEM: Unlabored breathing , decreased breath sounds at bases HEART: S1 S2 regular rate and rhythm , ABDOMEN: Soft , no tenderness EXTREMITIES: No edema feet - Labs CBC & Chem 7: 02/09/23 02:04 02/09/23 02:04 Labs: Abnormal Lab Results - Last 24 Hours (Table) 02/08/23 02/08/23 02/08/23 Range/Units 10:35 16:38 18:55 RBC (3.80-5.40) m/uL Hgb (11.4-16.0) gm/dL Hct (34.0-46.0) % RDW (11.5-15.5) % Plt Count (150-450) k/uL Lymphocytes # (Manual) (1.0-4.8) k/uL Nucleated RBCs (0-0) /100 WBC PT (9.0-12.0) sec INR (<1.2) APTT (22.0-30.0) sec Fibrinogen (200-500) mg/dL ABG pCO2 33 L (35-45) mmHg ABG pO2 79 L (83-108) mmHg ABG HCO3 19 L (21-25) mmol/L Sodium (137-145) mmol/L Chloride (98-107) mmol/L Carbon Dioxide (22-30) mmol/L BUN (7-17) mg/dL Creatinine (0.52-1.04) mg/dL Glucose (74-99) mg/dL POC Glucose (mg/dL) 146 H (70-110) mg/dL Calcium (8.4-10.2) mg/dL Troponin I (0.000-0.034) ng/mL Procalcitonin 4.07 H (0.02-0.09) ng/mL 02/08/23 02/09/23 02/09/23 Range/Units 20:21 02:04 02:04 RBC 3.12 L (3.80-5.40) m/uL Hgb 7.9 L (11.4-16.0) gm/dL Hct 25.0 L (34.0-46.0) % RDW 23.2 H (11.5-15.5) % Plt Count 55 L (150-450) k/uL Lymphocytes # (Manual) 0.27 L (1.0-4.8) k/uL Nucleated RBCs 1 H (0-0) /100 WBC PT (9.0-12.0) sec INR (<1.2) APTT (22.0-30.0) sec Fibrinogen (200-500) mg/dL ABG pCO2 (35-45) mmHg ABG pO2 (83-108) mmHg ABG HCO3 (21-25) mmol/L Sodium 136 L (137-145) mmol/L Chloride 108 H (98-107) mmol/L Carbon Dioxide 18 L (22-30) mmol/L BUN 79 H (7-17) mg/dL Creatinine 1.75 H (0.52-1.04) mg/dL Glucose 114 H (74-99) mg/dL POC Glucose (mg/dL) 151 H (70-110) mg/dL Calcium 6.6 L (8.4-10.2) mg/dL Troponin I (0.000-0.034) ng/mL Procalcitonin (0.02-0.09) ng/mL 02/09/23 02/09/23 02/09/23 Range/Units 02:04 06:42 10:19 RBC (3.80-5.40) m/uL Hgb (11.4-16.0) gm/dL Hct (34.0-46.0) % RDW (11.5-15.5) % Plt Count (150-450) k/uL Lymphocytes # (Manual) (1.0-4.8) k/uL Nucleated RBCs (0-0) /100 WBC PT 14.7 H (9.0-12.0) sec INR 1.5 H (<1.2) APTT 36.4 H (22.0-30.0) sec Fibrinogen 787 H (200-500) mg/dL ABG pCO2 (35-45) mmHg ABG pO2 (83-108) mmHg ABG HCO3 (21-25) mmol/L Sodium (137-145) mmol/L Chloride (98-107) mmol/L Carbon Dioxide (22-30) mmol/L BUN (7-17) mg/dL Creatinine (0.52-1.04) mg/dL Glucose (74-99) mg/dL POC Glucose (mg/dL) 139 H (70-110) mg/dL Calcium (8.4-10.2) mg/dL Troponin I 0.085 H* (0.000-0.034) ng/mL Procalcitonin (0.02-0.09) ng/mL 02/09/23 Range/Units 11:13 RBC (3.80-5.40) m/uL Hgb (11.4-16.0) gm/dL Hct (34.0-46.0) % RDW (11.5-15.5) % Plt Count (150-450) k/uL Lymphocytes # (Manual) (1.0-4.8) k/uL Nucleated RBCs (0-0) /100 WBC PT (9.0-12.0) sec INR (<1.2) APTT (22.0-30.0) sec Fibrinogen (200-500) mg/dL ABG pCO2 (35-45) mmHg ABG pO2 (83-108) mmHg ABG HCO3 (21-25) mmol/L Sodium (137-145) mmol/L Chloride (98-107) mmol/L Carbon Dioxide (22-30) mmol/L BUN (7-17) mg/dL Creatinine (0.52-1.04) mg/dL Glucose (74-99) mg/dL POC Glucose (mg/dL) 152 H (70-110) mg/dL Calcium (8.4-10.2) mg/dL Troponin I (0.000-0.034) ng/mL Procalcitonin (0.02-0.09) ng/mL Assessment and Plan (1) Fever Current Visit: Yes Status: Acute Code(s): R50.9 - FEVER, UNSPECIFIED SNOMED Code(s): 239244087 Plan: 1patient with sepsis in this patient who did have a fever elevated white count present to the hospital predominantly with the GI symptoms specially with abdominal pain and bleeding per rectum patient bleeding seems to have improved however still complaining of diarrhea with admission CT did shows evidence of sigmoid diverticulitis patient also have some urinary symptoms and with exposure to antibiotics concerning for possible CVA versus UTI. 2patient with multiple antibiotic allergies that would limit the number of antibiotics safe to use. 3patient did have elevated CRP procalcitonin chest x-ray concerning for p ossible left-sided pneumonia, sputum cultures obtained which are so for negative 4patient fever has resolved and the patient white count has normalized however patient did have worsening of respiratory status and has been transferred to the ICU , patient culture had been negative patient to continue with Azactam and Flagyl and monitor clinical course closely Time with Patient: Less than 30
[2023-02-09] MEDS: LACTATED RINGERS 1,000 ML IV SCH (18:55)
--- NOTE | 2023-02-09 19:49 | P.PN ---
Subjective Progress Note Date: 02/09/23 This is a pleasant 72 years old female with multiple medical problems including Atrial Fibrillation, Coronary Artery Disease (CAD), Cancer, COPD, CVA/TIA, Diabetes Mellitus, GERD/Reflux, Hyperlipidemia, Hypertension, Pneumonia, Sleep Apnea/CPAP/BIPAP, Syncope she was discharged from this facility one month ago forpossible GI bleed, TIA, syncope and bronchitis. She was visiting her surgeon yesterday in the outpatient setting and she was referred to emergency room, Patient states that since last Thursday about one week ago she noticed she was not eating well and she had only one piece of pizza because of that. She started having blood per rectum, she will not stretch blood with clots filled the toilet about 3-4 times a day, also she was feeling more lethargic and weak and she slept for 48 hours as she described, complaining OF from abdominal pain mainly in the lower abdomen on the right side since Thursday about /10 like colic comes and goes. Also patient has been vomiting 2-3 times per day but there is no blood. Also patient with poor appetite. Visiting nurse noticed that her blood pressure was on the low side about 80/40 so she decided to go and see her surgeon before here for her to the emergency room. However when I saw the patient this morning she was fully awake and oriented, she looks comfortable pleasant and not in distress, she was complaining only from minimal abdominal pain. On admission she had a fever of 101, she was hypotensive and severely anemic her blood pressure 1000 as79/45, was fluctuation up to 113/45,this morning her blood pressure was 91/46, she is saturating 93% on 3 L oxygen. hemoglobin on admission was 7.7 and 6.1, compared to 9.8 last month for shawn campo. She received 1 unit of blood transfusion and her hemoglobin this morning is 7.4.INR is normal mildly elevated lactic acid came back to normal. Basic metabolic panel and liver enzymes were unremarkable this morning. urine analysis is negative and multiple viruses are undetected including covid ,influenza and RSV she has CT of the abdomen and pelvis with IV contrast showing no bowel obstru ction with mild sigmoid diverticulitis she received 2 L of normal saline and antibiotics with Flagyl and Levaquin. echocardiogram from 04/03/2022 showing ejection fraction of 55-60% 01/24/2022 Patient feels better, she feels stronger, she was walking the hallway. Her blood pressure still borderline but is improving slowly and gradually while she is on IV fluids also she is on midodrine which she thinks is helping her She still reports some blood in his stool but it's mild Hemoglobin is stable about 7.5. She remains on Levaquin and IV Flagyl and normal saline at 1:30 milliliters per hour Check labs in the morning. Currently patient is placed on liquid diets 01/25/2023 Patient is having recurrent vomiting this morning with some worsening upper abdominal pain but her abdomen still looks soft, no guarding or rebound tenderness. She still has a few spots of bleeding per rectum and epistaxis which is mild. Blood pressure actually improved, with no tachycardia, we will alert her midodrine 5 mg twice a day and we'll alert her normal saline 200 mL per hour. She has worsening swelling in her extremities as well. KUB from today is negative for acute process. She remains on Flagyl and Levaquin Surgery team on the case and plan for endoscopy tomorrow treatment Continue with Phenergan 25 mg as patient states is helping her 01/26/2023 Patient is seen and evaluated in follow-up this morning reports she underwent a bowel prep and is scheduled for colonoscopy with general surgery services today. Patient reports she had clear stool and most recent bowel movement was free of any dark stools or blood. Patient also being followed closely and maintained on IV antibiotics in the form of Flagyl and Levaquin for acute diverticulitis. Hemoglobin is currently stable today at 7.7. WBC is elevated at 14.7 and patient will continue on antibiotics. Kidney functions are within normal limits and blood sugars being monitored. Recommend continue with IV Protonix twice daily. Patient is currently afebrile with no reports of chest pain or shortness of breath. Patient is continued on 2 L and would recommend weaning FiO2 as tolerated. Will await colonoscopy report. 01/27/2023 Patient is seen today and is being followed by general surgery as well as hematology. Patient hemoglobin is 7.1 today and wbc is elevated. Hematology recommending IV iron x2 as studies were low. Recommend repeat cbc in am. Patient is currently NPO and continued on IV abx in the form of flagyl and levaquin for diverticulitis. Colonoscopy shows no acute bleed noted, possibly diverticular disease along with sigmoid diverticulitis. Continue with pain management as patient reports abdominal cramping. Patient anticoagulant remains on hold. Patient is afebrile and has been up and walking. 01/28/2023 Patient is seen in follow up with morning and being followed by surgery as well as hematology. Patient hemoglobin is up to 8 today and has received IV iron x2. Patient blast cells 3 today with hematology following closely. Recommending outpatient follow up. Patient reports some improvement in abdominal pain and diet is being slowly advanced per surgery to clear liquids. Recommend to monitor for tolerance. Chest xray was ordered and pending. Patient continued on IV antibiotics and will continue. Need to discuss further with surgery about treatment plan. Patient is afebrile and continues with an elevated WBC. Recommend follow up labs in the am. 01/29/2023 Patient is seen in follow-up with surgery following. Patient hemoglobin is stable currently and maintained off anticoagulation. Patient is a new non-oral iron supplementation and will continue. Patient continues to have elevated WBC currently above 16 and blast cells at 4 today. Patient is continued on IV antibiotics for the diverticulitis and has been maintaining and tolerating clear liquid diet and reports improvement in her abdominal pain with no reports of nausea or vomiting. Chest x-ray showing some overload and patient reports to having some abdominal bloating as well as generalized edema and will give a dose of IV Lasix. Recommend discontinuing IV hydration. Will follow-up with repeat labs. Recommend incentive spirometer and continuing to use at least 10 times every hour while awake. Encouraged increased activity as tolerated patient reports has been up and walking to the whole back. Recommend continued physical therapy. 01/30/2023 Patient is seated evaluated in follow-up continuing to lie in the bed with gener alized weakness. Patient reports she has been up but not as much. Patient is to receive a PICC line in no being started on TPN given her poor oral intake. Electrolyte abnormalities noting potassium of 3.2 and magnesium is 1.1 and will replace and recommend repeat labs. Patient also continues to report abdominal bloating and abdomen is soft and nontender on exam. Patient did receive a dose of IV Lasix yesterday with good output. General surgery starting TPN with dietitian to follow. Encouraged incentive spirometer at the bedside as patient continues to be on oxygen it does not normally wear this in the outpatient setting. Wean FiO2 as tolerated. Repeat CBC shows a hemoglobin 7.1 today and blast cells are increased up to 9 and discussed with oncology team with plans for possible bone marrow biopsy on Thursday. 01/31/2023 Patient is seen and evaluated in follow-up and hemoglobin was 6.9 today and awaiting to receive 2 units of blood with hematology following closely. General surgery following as well and has placed the patient on TPN and has received a PICC line. Electrolytes were replaced in magnesium above 2 and potassium 3.5. Patient's blood pressure on the lower side most likely multifactorial with pain medications and low blood count will add midodrine. Kidney functions worsened along with patient's sodium becoming hyponatremic although difficult to give IV fluids as patient overload easily. Will consult nephrology and appreciate input and recommendations. Patient is afebrile with no reports of nausea or vomiting noted. No reported chest pain or worsening shortness of breath at this time. Patient needs increased activity as tolerated and sitting up in the chair more often. Would recommend PT/OT therapy daily. 02/01/2023 Patient is seen in follow-up today reports she is not feeling well and per nursing staff has been having fevers overnight and continued on antibiotics for diverticulitis with surgery following. Hematology/oncology following as well and planning for possible bone marrow biopsy tomorrow. Patient is continued on TPN and has PICC line continues with indwelling Fermin catheter. Patient is reporting diarrhea and abdominal distention with pain. Infectious disease consulted and pending. Blood sugars have been elevated and was continued on sliding scale and will continue and add long-acting as well. No reports of chest pain or palpitations noted. Patient is wearing oxygen does not normally wear oxygen outpatient. Patient continues with generalized weakness and is continued on clear liquids. 02/02/2023 Patient seen and evaluated in follow-up with multiple medical consultations following. Blast cells remain elevated and hemoglobin currently stable after transfusion. Patient scheduled for bone marrow biopsy in the a.m. Patient also continues on TPN with general surgery following recommending to continue along with IV antibiotics. Infectious disease has been consulted and antibiotics being adjusted as patient had continued fevers and elevated white count. Pro- calcitonin is elevated and will continue. Patient is having elevated blood sugars and have adjusted long-acting and will continue sliding scale and m onitoring closely. Patient is requiring more oxygen demand currently at 5 L and normally does not wear any oxygen. Chest x-ray ordered pending. 02/03/2023 Patient is seen and evaluated in follow-up today with multiple medical consultations following. Overall prognosis remains guarded as patient has multiple comorbidities and medical issues ongoing. Patient currently remains on TPN for poor oral intake and recommend monitoring electrolytes closely replacing per protocol. Patient hemoglobin improved with no active bleeding noted. Patient continues with abdominal pain as well as some shortness of breath and white count remains elevated patient is having fevers. Chest x-ray suggestive of some volume overload and will continue dose of Lasix. Patient underwent bone marrow biopsy with oncology today. Blood sugars remain uncontrolled and will add pre-meal insulins as well as continue long-acting and sliding scale, possibly consider insulin drip. 02/04/2023 Patient is seen and evaluated in follow-up this morning reports she feels somewhat improved although continues to require high flow oxygen and also using BiPAP with pulmonary following. Chest x-ray this morning is suggestive of pulmonary edema and pleural fluid which is the same or slightly worse than previous could be CHF and was given doses of Lasix with improvement. Patient being started on IV Lasix twice daily with nephrology following closely. Hemoglobin is stable at 7.7 and white count is 8.6, blast cells are 6 and oncology following and has underwent bone marrow biopsy which is pending. Kidney functions are stable in magnesium found to be 1.6 and will replace per protocol. Patient continues on TPN and continues to have multiple electrolyte abnormalities at times. Patient also extremely hyperglycemic and will attempt increasing the long-acting with increasing the pre-meal as well as continuing sliding scale and may require an insulin drip. Patient is also continued on IV antibiotics with infectious disease following closely and per medical record patient has been refusing aztreonam and unsure why. Recommend wean FiO2 as tolerated and encouraged increase activity as tolerated 02/05/2023 Patient is seen and evaluated in follow-up this morning currently sitting up at the side of the bed continues to report shortness of breath although feels is improved. Patient is using BiPAP on occasion and currently maintained on 15 L high flow. Patient is maintained on IV Lasix with nephrology following closely. Multiple medical consultations following including general surgery recommending to continue TPN for abdominal pain and poor oral intake. Would recommend decreasing the rate and amount of fluid from TPN and have discussed this with pharmacy along with dietary adjustments are being made. Patient's blood sugars are elevated although more controlled on current regimen and will continue. Hemoglobin found to be 6.9 this morning and will give a unit of PRBC and recommend follow-up labs. Patient is receiving DuoNeb treatments and would recommend follow-up chest x-ray in the a.m. Overall prognosis remains guarded. 02/06/2023 Patient is seen in follow-up today continued on BiPAP currently had increased respiratory distress requiring an a team last night and maintained on BiPAP and refusing to take it off she is having increasing shortness of breath. Patient is now continued on IV Lasix and TPN being discontinued. Patient is refusing all medications at this time and discuss with nursing staff about encouraging oral intake. Was notified from pharmacy they are out of TPN and okay to discontinue per surgery. Blood sugars improved although patient is not eating and will continue to monitor closely. Patient hemoglobin above 7 and WBC is patient is continued on antibiotics with ID following and has also been started on vancomycin in addition. Pro-calcitonin is elevated. Overall prognosis remains extremely guarded. 02/07/2023 Patient is seen in follow-up this morning currently on the stepdown unit with multiple medical consultations following with plans for transferring to ICU as respiratory status has declined once again and now maintained on continuous BiPA P with an 80% FiO2. Patient has been refusing to remove the BiPAP for any eating or medication and discussed with nursing staff the importance of medication administration as well as the patient. Oral intake remains poor and patient is lethargic. Patient's blood sugars have now been on the lower side as patient is not eating and will add just sliding scale and discontinue the long- acting had prerenal insulins for now. Recommend continue monitoring Accu-Cheks closely for any signs of hypoglycemia as well. Chest x-ray continues to show some overload versus possible pneumonia patient is maintained on IV aztreonam as well as vancomycin with infectious disease following closely. Overall prognosis remains extremely guarded at this time. Will follow-up with repeat labs in a.m. and monitor the patient closely in the ICU. 02/08/2023 Patient is seen in follow-up today has been moved to the ICU for close monitoring as patient's respiratory status has declined. Patient is on BiPAP continuous with an FiO2 of 80% and PEEP is 5. Patient is maintained on antibiotics with multiple medical consultations following in the form of aztreonam and vancomycin while awaiting repeat cultures. Patient did have multiple episodes of loose stools overnight and currently awaiting a C. diff sample. Patient noted to have decreased urine output with indwelling Fermin catheter placed with nephrology following slight bump in kidney functions and is being placed on IV Lasix drip at 10 mL's per hour. Will follow-up with repeat labs. Chest x-ray today shows bibasilar infiltrates with small pleural e ffusions correlate for CHF and pulmonary edema.. hemoglobin is stable above 7.5 with no active bleeding noted and will follow closely and transfuse of 7 or less. Blood sugars slightly improved and will continue on just sliding scale. A was on long-acting although not eating and having close to episodes of hypoglycemia. Patient encouraged oral intake and medication administration. Patient not tolerating taking the BiPAP mask off very well and desats quickly. Patient is currently 92-93% oxygen saturation with an FiO2 of 80% on the BiPAP. 02/09/2023 Patient is seen this morning in the ICU 100% BiPAP. Patient desats quickly although is able to take it off for brief periods of sips and medications. Patient with not much of an appetite and encouraged oral intake. Patient being followed by multiple medical consultations including nephrology and was on Lasix drip although having decreased urine output and worsening kidney functions now having vascular surgery consultation for hemodialysis. Patient is maintained on antibiotics with infectious disease following and awaiting repeat cultures. Aztreonam being discontinued and patient being started on meropenem with continued vancomycin. Monitor vancomycin trough levels closely with concerns of worsening kidney functions. Discussed CODE STATUS once again with the patient and wishes to remain full code at this time and patient is high risk for possible mechanical ventilation. Review of systems: Constitutional: reports of fatigue, reports not feeling well Cardiovascular: No reports of chest pain or palpitations Respiratory: reports of worsening shortness of breath GI: No reports of nausea, vomiting, or diarrhea, reports decreased abdominal pain had been refusing to eat with no real appetite : No reports of dysuria or retention, reports decreased urine output Neurovascular: reports of generalized weakness All medications have been reviewed Active Medications Acetaminophen (Acetaminophen Tab 325 Mg Tab) 650 mg PO Q6HR PRN PRN Reason: Fever and/ or Mild Pain Last Admin: 02/05/23 03:44 Dose: 650 mg Hydrocodone Bitart/Acetaminophen (Hydrocodone/Apap 5-325mg 1 Each Tab) 1 each PO Q6HR PRN PRN Reason: Pain Last Admin: 02/09/23 16:51 Dose: 1 each Albuterol/Ipratropium (Ipratropium-Albuterol 3 Ml Neb) 3 ml INHALATION RT-QID [facility] Last Admin: 02/09/23 15:08 Dose: 3 ml Albuterol/Ipratropium (Ipratropium-Albuterol 3 Ml Neb) 3 ml INHALATION RT-Q2H PRN PRN Reason: Shortness Of Breath Or Wheezing Last Admin: 02/09/23 04:09 Dose: 3 ml Atorvastatin Calcium (Atorvastatin 40 Mg Tab) 40 mg PO HS [facility] Last Admin: 02/08/23 20:19 Dose: Not Given Baclofen (Baclofen 10 Mg Tab) 10 mg PO HS [facility] Last Admin: 02/08/23 20:28 Dose: 10 mg Budesonide (Budesonide 1 Mg/2 Ml Nebu) 1 mg INHALATION RT-BID [facility] Last Admin: 02/09/23 08:28 Dose: 1 mg Dextrose/Water (Dextrose 50% Syringe 50 Ml) 25 ml IVP PER PROTOCOL PRN; Protocol PRN Reason: Hypoglycemia Last Admin: 02/07/23 14:12 Dose: 25 ml Dextrose/Water (Dextrose 50% Syringe 50 Ml) 50 ml IVP PER PROTOCOL PRN; Protocol PRN Reason: Hypoglycemia Ferrous Sulfate (Ferrous Sulfate 325 Mg Tab) 325 mg PO BID-W/MEALS [facility] Last Admin: 02/09/23 16:51 Dose: 325 mg Fluticasone Propionate (Fluticasone 50mcg/[place] Nasal 16gm) 2 spray EA NOSTRIL DAILY PRN PRN Reason: allergies Last Admin: 01/28/23 16:26 Dose: 2 spray Formoterol Fumarate (Formoterol Fumarate 20 Mcg/2 Ml Nebu) 20 mcg INHALATION RT-BID [facility] Last Admin: 02/09/23 08:48 Dose: 20 mcg Heparin Sodium (Porcine) (Heparin Sodium,Porcine/Pf 5,000 Unit/0.5 Ml Syringe) 5,000 unit SQ Q12HR [facility] Last Admin: 02/09/23 08:24 Dose: Not Given Hydromorphone HCl (Hydromorphone 1 Mg/Ml 1 Ml Syringe) 1 mg IVP Q3H PRN PRN Reason: Moderate to Severe Pain (4-10) Last Admin: 02/09/23 09:31 Dose: 1 mg Lactated Ringer's (Lactated Ringers) 1,000 mls @ 20 mls/hr IV .Q24H [facility] Last Admin: 02/09/23 18:55 Dose: Not Given Norepinephrine Bitartrate 8 mg (/ Sodium Chloride) 258 mls @ 4.977 mls/hr IV .Q24H [facility]; Protocol Last Admin: 02/09/23 12:36 Dose: Not Given Meropenem 1 gm/ Sodium (Chloride) 100 mls @ 33.3 mls/hr IVPB Q12HR [facility]; Pro tocol Last Admin: 02/09/23 09:35 Dose: 33.3 mls/hr Insulin Aspart (Insulin Aspart (Novolog) 100 Unit/Ml Vial) 0 unit SQ ACHS [facility]; Protocol Last Admin: 02/09/23 16:50 Dose: Not Given Lidocaine HCl (Lidocaine 1% (10mg/Ml) For Iv Start) 0.1 ml INTRADERMA PER PROTOCOL PRN PRN Reason: IV Start Metolazone (Metolazone 5 Mg Tab) 5 mg PO DAILY [facility] Last Admin: 02/09/23 09:24 Dose: 5 mg Metoprolol Tartrate (Metoprolol Tartrate 25 Mg Tab) 25 mg PO BID [facility] Last Admin: 02/09/23 09:24 Dose: 25 mg Midodrine (Midodrine 5 Mg Tab) 10 mg PO AC-TID [facility] Last Admin: 02/09/23 16:51 Dose: 10 mg Miscellaneous Information (Potassium Replacement Protocol 1 Each Misc) 1 each MISCELLANE DAILY PRN; Protocol PRN Reason: Per Protocol Miscellaneous Information (Magnesium Replacement Protocol 1 Each Misc) 1 each MISCELLANE DAILY PRN; Protocol PRN Reason: Per Protocol Naloxone HCl (Naloxone 0.4 Mg/Ml 1 Ml Vial) 0.2 mg IV Q2M PRN PRN Reason: Opioid Reversal Ondansetron HCl (Ondansetron 4 Mg/2 Ml Vial) 4 mg IVP Q6HR PRN PRN Reason: Nausea And Vomiting Last Admin: 01/30/23 19:49 Dose: 4 mg Pantoprazole Sodium (Pantoprazole 40 Mg/10 Ml Vial) 40 mg IVP BID [facility] Last Admin: 02/09/23 09:24 Dose: 40 mg Promethazine HCl (Promethazine 25 Mg Tab) 25 mg PO Q6HR PRN PRN Reason: Nausea Last Admin: 01/27/23 13:51 Dose: 25 mg Sertraline HCl (Sertraline 50 Mg Tab) 50 mg PO DAILY [facility] Last Admin: 02/09/23 09:24 Dose: 50 mg Simethicone (Simethicone 80 Mg Chewable) 80 mg PO QID [facility] Last Admin: 02/09/23 16:52 Dose: Not Given Physical exam: GENERAL: The patient is alert and oriented x3, Well developed, well nourished. Obese, elderly and ill-appearing, now maintained on BiPAP continuous, FiO2 is 100% with a PEEP of 5 HEENT: Pupils are round and equally reacting to light. EOMI. No scleral icterus. No conjunctival pallor. Normocephalic, atraumatic. No pharyngeal erythema. No thyromegaly. CARDIOVASCULAR: S1 and S2 muffled PULMONARY: Diminished breath sounds bilaterally with some scattered rhonchi and crackles noted ABDOMEN: Soft, obese, nontender, some bloating, nondistended, normoactive bowel sounds. No palpable organomegaly. MUSCULOSKELETAL: No joint swelling or deformity. EXTREMITIES: No cyanosis, clubbing, or pedal edema. NEUROLOGICAL: Gross neurological examination did not reveal any focal deficits. Diffusely weak SKIN: No rashes. no petechiae. Assessment: Acute anemia, mostly acute blood loss anemia, associated with abdominal pain and sigmoid diverticulitis Acute hypoxemic respiratory failure, possibly secondary to volume overload, now requiring BiPAP Diverticular disease as noted on colonoscopy Sigmoid diverticulitis Acute kidney injury, multifactorial possibly secondary to hypotension as well as poor oral intake, decreased urine output, failed Severe protein calorie malnutrition secondary to above History of chronic Anemia, iron deficiency Elevated blast cells, currently 1%, possibly secondary to previous chemotherapy or due to recent GI bleeding, bone marrow biopsy on 02/03/2023 is pending Atrial Fibrillation, on Eliquis (ON HOLD) status post Permanent Pacemaker history of anterior abdominal wall fluid collection could be related to seroma Coronary Artery Disease history, status post stent Obesity with BMI of 30.5 COPD, not in exacerbation CVA/TIA history with left foot drop Diabetes Mellitus, uncontrolled with hyperglycemia GERD/Reflux Hyperlipidemia Hypertension Sleep Apnea/CPAP/BIPAP Diabetic neuropathy bilateral legs/feet History of colon cancer with revision/colostomy since reversed and chemo/radiation History of PVD Full code Plan: Recommend continue with antibiotics in the form of now vancomycin and now meropenem and aztreonam was discontinued with infectious disease following. Blood cultures thus far remain negative and sputum culture was sent and pending. WBC has improved and patient is afebrile Indwelling Fermin catheter with decreased urine output and nephrology following was continued on Lasix drip although having worsening kidney functions and no urinary output with vascular surgery consulted awaiting on initiating hemodialysis Recommend to continue weaning FiO2 as tolerated currently on BiPAP continuously with pulmonary following and has been transferred to ICU for close monitoring Oncology following patient underwent bone marrow biopsy on 02/03/2023, results are still pending and will be followed up to request these results Recommend follow-up labs in a.m. Due to multiple complex medical issues, prognosis is extremely poor and guarded The impression and plan of care has been dictated by Mindy Saleh, Nurse Practitioner as directed. Dr. Celso MD I have performed a history and examination and MDM of this patient, discussed the same with the dictator, and agree with the dictator's assessment and plan as written ,documented as a scribe. Based on total visit time, I have performed more than 50% of the visit. Objective - Vital Signs Vital signs: Vital Signs Temp 98.0 F 02/09/23 08:00 Pulse 106 H 02/09/23 09:00 Resp 28 H 02/09/23 09:00 BP 108/59 02/09/23 09:00 Pulse Ox 94 L 02/09/23 09:00 FiO2 100 02/09/23 08:31 Intake & Output 02/08/23 02/09/23 02/09/23 18:59 06:59 18:59 Intake Total 826.876 459.5 100 Output Total 317 85 Balance 509.876 374.5 100 Intake: IV 482 349 0.9% @ KVO 120 130 Aztreonam 2 gm In Sodium 132 99 Chloride 0.9% 100 ml @ 33 .3 mls/hr IVPB Q8H [facility] Rx #:[id number] Furosemide 100 mg In 120 Sodium Chloride 0.9% 90 ml @ 10 MG/HR 10 mls/hr IV .Q10H [facility] Rx#: [id number] Invasive Line 4 30 Magnesium Sulfate-D5w Pmx 100 1 gm In Dextrose/Water 1 100ml.bag @ 100 mls/hr IVPB ONCE ONE Rx#: [id number] Potassium Chloride 10 meq 100 In Water For Injection 1 100ml.bag @ 100 mls/hr IVPB Q1H [facility] Rx#: [id number] Intake, IV Titration 344.876 110.5 100 Amount Aztreonam 2 gm In Sodium 33 33 Chloride 0.9% 100 ml @ 33 .3 mls/hr IVPB Q8H [facility] Rx #:[id number] Furosemide 100 mg In 161.833 77.5 100 Sodium Chloride 0.9% 90 ml @ 10 MG/HR 10 mls/hr IV .Q10H [facility] Rx#: [id number] Norepinephrine 8 mg In 150.043 Sodium Chloride 0.9% 250 ml @ 0.03 MCG/KG/MIN 4. 977 mls/hr IV .Q24H [facility] Rx#:[id number] Output: Urine 317 85 Other: Voiding Method Indwelling Catheter Indwelling Catheter # Bowel Movements 5 - Labs CBC & Chem 7: 02/09/23 02:04 02/09/23 02:04 Labs: Abnormal Lab Results - Last 24 Hours (Table) 02/08/23 02/08/23 02/08/23 Range/Units 10:35 10:35 11:27 RBC (3.80-5.40) m/uL Hgb (11.4-16.0) gm/dL Hct (34.0-46.0) % RDW (11.5-15.5) % Plt Count (150-450) k/uL Lymphocytes # (Manual) (1.0-4.8) k/uL Nucleated RBCs (0-0) /100 WBC ABG pCO2 (35-45) mmHg ABG pO2 (83-108) mmHg ABG HCO3 (21-25) mmol/L Sodium (137-145) mmol/L Chloride (98-107) mmol/L Carbon Dioxide (22-30) mmol/L BUN (7-17) mg/dL Creatinine (0.52-1.04) mg/dL Glucose (74-99) mg/dL POC Glucose (mg/dL) 174 H (70-110) mg/dL Calcium (8.4-10.2) mg/dL Troponin I (0.000-0.034) ng/mL Procalcitonin 4.07 H (0.02-0.09) ng/mL Vancomycin Trough 40.5 H* ug/mL 02/08/23 02/08/23 02/08/23 Range/Units 16:38 18:55 20:21 RBC (3.80-5.40) m/uL Hgb (11.4-16.0) gm/dL Hct (34.0-46.0) % RDW (11.5-15.5) % Plt Count (150-450) k/uL Lymphocytes # (Manual) (1.0-4.8) k/uL Nucleated RBCs (0-0) /100 WBC ABG pCO2 33 L (35-45) mmHg ABG pO2 79 L (83-108) mmHg ABG HCO3 19 L (21-25) mmol/L Sodium (137-145) mmol/L Chloride (98-107) mmol/L Carbon Dioxide (22-30) mmol/L BUN (7-17) mg/dL Creatinine (0.52-1.04) mg/dL Glucose (74-99) mg/dL POC Glucose (mg/dL) 146 H 151 H (70-110) mg/dL Calcium (8.4-10.2) mg/dL Troponin I (0.000-0.034) ng/mL Procalcitonin (0.02-0.09) ng/mL Vancomycin Trough ug/mL 02/09/23 02/09/23 02/09/23 Range/Units 02:04 02:04 02:04 RBC 3.12 L (3.80-5.40) m/uL Hgb 7.9 L (11.4-16.0) gm/dL Hct 25.0 L (34.0-46.0) % RDW 23.2 H (11.5-15.5) % Plt Count 55 L (150-450) k/uL Lymphocytes # (Manual) 0.27 L (1.0-4.8) k/uL Nucleated RBCs 1 H (0-0) /100 WBC ABG pCO2 (35-45) mmHg ABG pO2 (83-108) mmHg ABG HCO3 (21-25) mmol/L Sodium 136 L (137-145) mmol/L Chloride 108 H (98-107) mmol/L Carbon Dioxide 18 L (22-30) mmol/L BUN 79 H (7-17) mg/dL Creatinine 1.75 H (0.52-1.04) mg/dL Glucose 114 H (74-99) mg/dL POC Glucose (mg/dL) (70-110) mg/dL Calcium 6.6 L (8.4-10.2) mg/dL Troponin I 0.085 H* (0.000-0.034) ng/mL Procalcitonin (0.02-0.09) ng/mL Vancomycin Trough ug/mL 02/09/23 Range/Units 06:42 RBC (3.80-5.40) m/uL Hgb (11.4-16.0) gm/dL Hct (34.0-46.0) % RDW (11.5-15.5) % Plt Count (150-450) k/uL Lymphocytes # (Manual) (1.0-4.8) k/uL Nucleated RBCs (0-0) /100 WBC ABG pCO2 (35-45) mmHg ABG pO2 (83-108) mmHg ABG HCO3 (21-25) mmol/L Sodium (137-145) mmol/L Chloride (98-107) mmol/L Carbon Dioxide (22-30) mmol/L BUN (7-17) mg/dL Creatinine (0.52-1.04) mg/dL Glucose (74-99) mg/dL POC Glucose (mg/dL) 139 H (70-110) mg/dL Calcium (8.4-10.2) mg/dL Troponin I (0.000-0.034) ng/mL Procalcitonin (0.02-0.09) ng/mL Vancomycin Trough ug/mL
[2023-02-09 20:04] LABS: Glucose,Whole Blood 197 mg/dL (70-110)
[2023-02-09] MEDS: BACLOFEN 10 MG TAB PO SCH (20:08)
[2023-02-09] MEDS: ATORVASTATIN 40 MG TAB PO SCH (20:08)
[2023-02-10 06:34] LABS: Glucose,Whole Blood 176 mg/dL (70-110)
[2023-02-10] MEDS: FERROUS SULFATE 325 MG TAB PO SCH ×2 (06:37→17:49)
[2023-02-10] MEDS: MIDODRINE 5 MG TAB PO SCH ×3 (06:40→17:49)
[2023-02-10] MEDS: INSULIN ASPART (NovoLOG) 100 UNIT/ML VIAL SQ SCH ×4 (06:40→20:55)
[2023-02-10 07:29] LABS: Anisocytosis Moderate; HCT 22.9 % (34.0-46.0); HGB 7.1 gm/dL (11.4-16.0); Hypochromasia Slight; MCH 25.1 pg (25.0-35.0); MCHC 31.1 g/dL (31.0-37.0); MCV 80.7 fL (80.0-100.0); Microcytosis Moderate; Platelet Count 52 k/uL (150-450); Poikilocytosis Slight; RBC 2.83 m/uL (3.80-5.40); RDW 23.7 % (11.5-15.5); WBC 9.6 k/uL (3.8-10.6)
--- NOTE | 2023-02-10 08:04 | P.PN ---
Subjective Progress Note Date: 02/10/23 On today's evaluation of 02/09/2023, the patient is being seen for a follow-up. She is in obvious respiratory failure and the patient is currently on a BiPAP at a pressure of 12/7 cm of water with FiO2 of 100%. Pulse ox is in the order of 93-94%. She is very much dependent on the BiPAP and unable to come off the BiPAP because of significant desaturations. Generator tidal volume on the BiPAP machine is in the order of 800 mL with a respiratory rate of 25. Blood gases has not been done. Echocardiogram has not been repeated. The last blood gas that we have on this patient is from 02/08/2023 that showed impaired oxygenation with a PE or 2 of 79. Meanwhile, the most recent chest x-ray from today shows diffuse bilateral pulmonary infiltrates and there is no obvious area of consolidation in the right upper lobe. Nevertheless, the infiltrates are rather diffuse. Noted the patient had a mildly elevated pro-calcitonin level of 0.32 at the time of admission and her pro-calcitonin gradually went up to 4.07. At the same time, the patient developed an acute kidney injury. Creatinine today is up to 1.7 and she is not producing any urine output. Nephrology has been involved and the patient is being prepared to undergo hemodialysis after insertion of a hemodialysis catheter. She is on a Lasix drip running at 10 mg an hour without any success in improving the urine output. She is also on Zaroxolyn at a dose of 5 mg by mouth G today. Cardiac rhythm is sinus. Note that she has undergone a previous percutaneous transaortic aortic valve replacement and this was done in 2021. His sodium level is at 136 with a potassium level of 4.2. Serum bicarb is at 10. BMs at 75 with a creatinine of 1.7. The white cell count today's of 8.9 with a hemoglobin of 7.9. Platelet count has dropped onto 55. She is covered with antibiotics. She is on a combination of vancomycin and the trough being at around 40 and she is also on aztreonam. No cultures are available. On today's evaluation of 02/02/2023, the patient is being seen for a follow-up. She remains in hypoxic respiratory failure BiPAP dependent at pressure of 12/7 cm of water with an FiO2 of 90%. Chest x-ray is essentially unchanged. There is diffuse but the pulmonary infiltrates and increased consolidation of the right upper lobe. Antibiotics were modified and the patient and the patient was started on IV meropenem yesterday. Breathing is labored. She is tachypneic. Generating tidal volume in the order of 600 mL and the patient's minute ventilation is around 15 L/m. Very much BiPAP dependent, unable to come off the BiPAP because of respiratory compromise. At the same time, an echocardiogram was completed yesterday and the patient has a preserved LV function with an ejection fraction of 65%. Nevertheless, the patient had significant degree of aortic valve disease. The patient moderate to severe aortic stenosis and the possibility of a left ventricular outflow tract obstruction cannot be completely excluded. The patient also had [id number] mitral stenosis, moderate severe mitral annular calcification. There was moderate right-sided hypertrophy and right ventricular dysfunction. Right ventricular systolic pressure was estimated to be 61 mmHg. Noted the patient was started on hemodialysis yesterday. A dialysis catheter was inserted in her right femoral artery. She was given a first session of hemodialysis yesterday and the patient had ultrafiltration of 2 L.. Urine output remains extremely low. Lasix drip has been discontinued and the patient remains on Zaroxolyn. Urine output has been only in the order of 10 mL over the past 8 hours. She is afebrile. She is hemodynamically stable on no pressors. The white cycles of 9.6 with a hemoglobin of 7.1. Platelet counts are still pending for now. Meanwhile, the bone marrow biopsy that was done earlier was quite abnormal. The patient has around 10% of blasts within the bone marrow consistent with high degree malignant myeloid neoplasm, with the possibility of a evolving acute leukemia. The patient had sputum cultures sent yesterday and that is also still pending for now. No other positive cultures thus far. Vancomycin level random from 02/09/2023 is 33. Objective - Vital Signs Vital signs: Vital Signs Temp 99.4 F 02/10/23 04:00 Pulse 92 02/10/23 06:00 Resp 24 02/10/23 06:00 BP 119/61 02/10/23 06:00 Pulse Ox 95 02/10/23 06:00 FiO2 90 02/10/23 06:00 Intake & Output 02/09/23 02/10/23 02/10/23 18:59 06:59 18:59 Intake Total 740 219 Output Total 2440 10 Balance -1700 209 Weight 85.729 kg Intake: IV 240 219 0.9% @ KVO 110 120 Furosemide 100 mg In 30 Sodium Chloride 0.9% 90 ml @ 10 MG/HR 10 mls/hr IV .Q10H [facility] Rx#: [id number] Meropenem 1 gm In Sodium 100 99 Chloride 0.9% 100 ml @ 33 .3 mls/hr IVPB Q12HR [facility] Rx#:[id number] Intake, IV Titration 100 Amount Furosemide 100 mg In 100 Sodium Chloride 0.9% 90 ml @ 10 MG/HR 10 mls/hr IV .Q10H [facility] Rx#: [id number] Hemodialysis 400 Output: Urine 40 10 Hemodialysis 2400 Other: Voiding Method Indwelling Catheter Indwelling Catheter - Exam No acute distress, oriented 3. Currently on BiPAP. The patient is current on a pressures of 12/7 cm of water FiO2 90%. She is lethargic. She is weak. She is bedbound. She is tolerating full face BiPAP mask for now. Pulse ox is currently in the order of 93-94%. Head exam was generally normal. There was no scleral icterus or corneal arcus. Mucous membranes were moist. HEENT examination is grossly unremarkable. Neck supple. Full range of motion. No adenopathy thyromegaly or neck vein distention. Cardiovascular examination reveals regular rhythm rate. S1-S2 normal. No S3 or S4. Systolic ejection murmur grade 3/6 over the left lateral sternal border and apex. Heart sounds are distant. Lungs reveal scattered bilateral rhonchi, and crackles. Breath sounds equal. No wheezes. Diminished breath on the lung bases bilaterally. AAbdominal exam revealed normal bowel sounds. The abdomen was soft, non-tender, and without masses, organomegaly, or appreciable enlargement of the abdominal aorta. Extremities are intact. No cyanosis or clubbing. Mild edema noted. Skin is without rash or lesion. Neurologic examination is brief but nonfocal. - Labs CBC & Chem 7: 02/10/23 06:49 02/09/23 02:04 Labs: Abnormal Lab Results - Last 24 Hours (Table) 02/09/23 02/09/23 02/09/23 Range/Units 10:19 11:13 16:32 RBC (3.80-5.40) m/uL Hgb (11.4-16.0) gm/dL Hct (34.0-46.0) % RDW (11.5-15.5) % PT 14.7 H (9.0-12.0) sec INR 1.5 H (<1.2) APTT 36.4 H (22.0-30.0) sec Fibrinogen 787 H (200-500) mg/dL POC Glucose (mg/dL) 152 H 128 H (70-110) mg/dL 02/09/23 02/10/23 02/10/23 Range/Units 20:02 06:32 06:49 RBC 2.83 L (3.80-5.40) m/uL Hgb 7.1 L (11.4-16.0) gm/dL Hct 22.9 L (34.0-46.0) % RDW 23.7 H (11.5-15.5) % PT (9.0-12.0) sec INR (<1.2) APTT (22.0-30.0) sec Fibrinogen (200-500) mg/dL POC Glucose (mg/dL) 197 H 176 H (70-110) mg/dL Microbiology - Last 24 Hours (Table) 02/09/23 10:00 Sputum Culture - Preliminary Sputum Assessment and Plan Plan: Acute hypoxemic respiratory failure, with progressive shortness of breath, and worsening saturations, likely multifactorial, in part related to fluid overload, as well as possible pneumonia, left midlung and left perihilar region. There is extensive consolidation of the right upper lobe. Patient is producing thick purulent sputum. At the same time, the patient's pro-calcitonin level has been progressively on the rise. I reviewed the chest x-ray at time of admission on 01/28/2023 and the patient has only small bilateral pleural effusions without any significant pulmonary infiltration. Her condition is progressed and the patient has a diffuse bilateral pulmonary infiltrates at this point in time. The chest x-rays essentially unchanged. The patient was started on hemodialysis yesterday. A total of 2 L of ultrafiltration was done. The patient is currently on a combination of meropenem and vancomycin. Random vancomycin level from yesterday was 27. She remains BiPAP dependent at a pressure of 12% FiO2 of 90%. His pro calcitonin level on 02/08/2023's on the rise and the level is at 24.07. GI bleeding currently inactive and stable. Note that the Initial admission to hospital for GI bleeding, with negative colonoscopy. Hemoglobin is stable Transcatheter aortic valve replacement, March 2022. Moderate to severe aortic valve stenosis with a possibility of a left ventricular outflow obstruction and moderate degree of mitral regurgitation with calcifications. History of atrial fibrillation. The current cardiac rhythm is sinus History of CAD. History of CVA. History of COPD, secondary to ongoing tobacco use with nicotine addiction. Diabetes mellitus. GERD. Hyperlipidemia. History of hypertension. History of obstructive sleep apnea syndrome. History of cervical cancer. Acute kidney injury, failed diuretics and the patient is currently undergoing hemodialysis. 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 Dialysis may optimize her overall respiratory status along with antibiotics. 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 We'll consult with hematology oncology this regard Condition is obviously very critical We'll continue to follow Critical care evaluation, > 30 min Time with Patient: Greater than 30
[2023-02-10] MEDS: BUDESONIDE 1 MG/2 ML NEBU INHALATION SCH ×2 (08:10→19:39)
[2023-02-10] MEDS: FORMOTEROL FUMARATE 20 MCG/2 ML NEBU INHALATION SCH ×2 (08:10→19:39)
[2023-02-10] MEDS: IPRATROPIUM-ALBUTEROL 3 ML NEB INHALATION SCH ×4 (08:11→19:39)
[2023-02-10 08:12] LABS: Calcium 7.1 mg/dL (8.4-10.2); Magnesium 2.2 mg/dL (1.6-2.3); Potassium 3.7 mmol/L (3.5-5.1)
--- NOTE | 2023-02-10 08:13 | XR ---
EXAMINATION TYPE: XR chest 1V portable DATE OF EXAM: 02/10/2023 HISTORY: Shortness of breath. COMPARISON: 02/09/2023 TECHNIQUE: Single view of the chest is submitted. FINDINGS: Demonstrated are scattered senescent parenchymal change. Progression of coarse infiltrates throughout both lung whitehead. Continued follow-up recommended. Findi ngs compatible with pneumonia. The heart is stable. Hilar and mediastinal structures are within normal limits. Degenerative changes are seen of the dorsal spine. IMPRESSION: 1. Progression of coarse infiltrates throughout both lung whitehead. Continued follow-up recommended. F indings compatible with pneumonia.
[2023-02-10] MEDS: SERTRALINE 50 MG TAB PO SCH (09:06)
[2023-02-10] MEDS: metOLazone 5 MG TAB PO SCH (09:06)
[2023-02-10] MEDS: MEROPENEM 1 GM in SODIUM CHLORIDE 0.9% 100 ML IVPB SCH ×2 (09:06→20:56)
[2023-02-10] MEDS: PANTOPRAZOLE 40 MG/10 ML VIAL IVP SCH ×2 (09:06→20:56)
[2023-02-10] MEDS: SIMETHICONE 80 MG CHEWABLE PO SCH ×4 (09:06→20:40)
[2023-02-10] MEDS: METOPROLOL TARTRATE 25 MG TAB PO SCH ×2 (09:06→20:55)
[2023-02-10 10:24] LABS: Band Neutrophils % 5 %; Eosinophils # (M) 0.29 k/uL (0-0.7); Lymphocytes # (M) 0.86 k/uL (1.0-4.8); Metamyelocytes # (M) 0.38 k/uL (0); Metamyelocytes % 4 %; Monocytes # (M) 0.48 k/uL (0-1.0); Myelocytes % 1 %; Neutrophils % (M) 75 %; Nucleated Red Blood Cells 0 /100 WBC (0-0); Total Cells Counted 200
[2023-02-10 10:25] LABS: RBC Fragments Present
--- NOTE | 2023-02-10 11:15 | P.PN ---
Subjective Patient is seen for follow-up for acute kidney injury and hyponatremia. Renal function had initially improved with correction of hyponatremia as well however, patient was transferred to ICU due to acute hypoxic respiratory failure secondary to volume overload and pneumonia needing BiPAP on 02/07/2023 She has been hypotensive and required pressors. Renal function subsequently deteriorated with severe oliguria necessitating initiation of renal replacement therapy. Started hemodialysis on 02/09/2023 Vancomycin was held yesterday and the level did come back elevated at 40.5 Patient had 2.5 L of ultrafiltration with hemodialysis yesterday. Patient is currently on BiPAP. She is awake appears to be more comfortable than yesterday. FiO2 at 85 from 100 previously. Urine output remains minimal Objective - Vital Signs Vital signs: Vital Signs Temp 98.1 F 02/10/23 08:00 Pulse 88 02/10/23 10:00 Resp 25 H 02/10/23 10:00 BP 119/56 02/10/23 10:00 Pulse Ox 93 L 02/10/23 10:00 FiO2 85 02/10/23 09:00 Intake & Output 02/09/23 02/10/23 02/10/23 18:59 06:59 18:59 Intake Total 740 219 76 Output Total 2440 10 70 Balance -1700 209 6 Weight 85.729 kg Intake: IV 240 219 76 0.9% @ KVO 110 120 10 Furosemide 100 mg In 30 Sodium Chloride 0.9% 90 ml @ 10 MG/HR 10 mls/hr IV .Q10H [facility] Rx#: [id number] Meropenem 1 gm In Sodium 100 99 66 Chloride 0.9% 100 ml @ 33 .3 mls/hr IVPB Q12HR [facility] Rx#:[id number] Intake, IV Titration 100 Amount Furosemide 100 mg In 100 Sodium Chloride 0.9% 90 ml @ 10 MG/HR 10 mls/hr IV .Q10H [facility] Rx#: [id number] Hemodialysis 400 Output: Urine 40 10 70 Hemodialysis 2400 Other: Voiding Method Indwelling Catheter Indwelling Catheter Indwelling Catheter - Exam Patient is awake, no acute distress Currently on BiPAP Examination of the heart S1 and S2 Examination the lungs decreased breath sounds at the bases with basilar crackles heard Abdomen is soft obese Examination of lower extremity shows edema 1+ bilaterally - Labs CBC & Chem 7: 02/10/23 06:49 02/10/23 06:49 Labs: Abnormal Lab Results - Last 24 Hours (Table) 02/09/23 02/09/23 02/09/23 Range/Units 10:19 11:13 16:32 RBC (3.80-5.40) m/uL Hgb (11.4-16.0) gm/dL Hct (34.0-46.0) % RDW (11.5-15.5) % Plt Count (150-450) k/uL Lymphocytes # (Manual) (1.0-4.8) k/uL Metamyelocytes # (Man) (0) k/uL Myelocytes # (Manual) (0) k/uL PT 14.7 H (9.0-12.0) sec INR 1.5 H (<1.2) APTT 36.4 H (22.0-30.0) sec Fibrinogen 787 H (200-500) mg/dL Carbon Dioxide (22-30) mmol/L BUN (7-17) mg/dL Creatinine (0.52-1.04) mg/dL Glucose (74-99) mg/dL POC Glucose (mg/dL) 152 H 128 H (70-110) mg/dL Calcium (8.4-10.2) mg/dL 02/09/23 02/10/23 02/10/23 Range/Units 20:02 06:32 06:49 RBC (3.80-5.40) m/uL Hgb (11.4-16.0) gm/dL Hct (34.0-46.0) % RDW (11.5-15.5) % Plt Count (150-450) k/uL Lymphocytes # (Manual) (1.0-4.8) k/uL Metamyelocytes # (Man) (0) k/uL Myelocytes # (Manual) (0) k/uL PT (9.0-12.0) sec INR (<1.2) APTT (22.0-30.0) sec Fibrinogen (200-500) mg/dL Carbon Dioxide 21 L (22-30) mmol/L BUN 78 H (7-17) mg/dL Creatinine 2.09 H (0.52-1.04) mg/dL Glucose 157 H (74-99) mg/dL POC Glucose (mg/dL) 197 H 176 H (70-110) mg/dL Calcium 7.1 L (8.4-10.2) mg/dL 02/10/23 Range/Units 06:49 RBC 2.83 L (3.80-5.40) m/uL Hgb 7.1 L (11.4-16.0) gm/dL Hct 22.9 L (34.0-46.0) % RDW 23.7 H (11.5-15.5) % Plt Count 52 L (150-450) k/uL Lymphocytes # (Manual) 0.86 L (1.0-4.8) k/uL Metamyelocytes # (Man) 0.38 H (0) k/uL Myelocytes # (Manual) 0.10 H (0) k/uL PT (9.0-12.0) sec INR (<1.2) APTT (22.0-30.0) sec Fibrinogen (200-500) mg/dL Carbon Dioxide (22-30) mmol/L BUN (7-17) mg/dL Creatinine (0.52-1.04) mg/dL Glucose (74-99) mg/dL POC Glucose (mg/dL) (70-110) mg/dL Calcium (8.4-10.2) mg/dL Microbiology - Last 24 Hours (Table) 02/09/23 10:00 Gram Stain - Preliminary Sputum Sputum Culture - Preliminary Assessment and Plan Assessment: 1. Acute kidney injury initially prerenal secondary to acute blood loss anemia and hypotension and IV contrast. Renal function had improved with creatinine down to 0.8 mg/dL. Serum creatinine has increased again with poor urine output secondary to hypotension and vancomycin toxicity. UA benign. No hydronephrosis noted on imaging. no improvement in urine output with Lasix drip. Patient is started on hemodialysis on 02/09/2023. 2. Acute GI bleed status post blood transfusion this admission. No active bleeding noted on colonoscopy. Hemoglobin 7.9 today. Hematology and surgery following. Underwent bone marrow aspiration this admission. Status post blood transfusions this admission. 3. Hyponatremia. Hypervolemic. Improved 4. Hypomagnesemia from GI losses and poor intake. Replaced. 5. Hypokalemia from poor intake and hypomagnesemia. Replaced. 6. Volume overload. No response to Lasix drip. Patient has been started on hemodialysis 7. Acute hypoxic respiratory failure maintained on BiPAP Plan: Repeat Hemodialysis today and then again in a.m. Increase goal UF to about 3 L as tolerated Continue with midodrine
[2023-02-10 11:32] LABS: Glucose,Whole Blood 204 mg/dL (70-110)
--- NOTE | 2023-02-10 13:26 | P.PN ---
Subjective Progress Note Date: 02/10/23 Principal diagnosis: anemia/elevated blast cells Upon visit today patient is resting in bed, working with PT. She reports SOB but states breathing is improving daily. She is still on BiPAP. Breathing mildly labored. She recived dialysis yesterday and again today, pt is having some UO. No other reported complaints Objective - Vital Signs Vital signs: Vital Signs Temp 98.1 F 02/10/23 08:00 Pulse 90 02/10/23 12:00 Resp 29 H 02/10/23 11:00 BP 109/52 02/10/23 11:00 Pulse Ox 94 L 02/10/23 11:00 FiO2 80 02/10/23 11:47 Intake & Output 02/09/23 02/10/23 02/10/23 18:59 06:59 18:59 Intake Total 740 219 76 Output Total 2440 10 70 Balance -1700 209 6 Weight 85.729 kg Intake: IV 240 219 76 0.9% @ KVO 110 120 10 Furosemide 100 mg In 30 Sodium Chloride 0.9% 90 ml @ 10 MG/HR 10 mls/hr IV .Q10H [facility] Rx#: [id number] Meropenem 1 gm In Sodium 100 99 66 Chloride 0.9% 100 ml @ 33 .3 mls/hr IVPB Q12HR [facility] Rx#:[id number] Intake, IV Titration 100 Amount Furosemide 100 mg In 100 Sodium Chloride 0.9% 90 ml @ 10 MG/HR 10 mls/hr IV .Q10H [facility] Rx#: [id number] Hemodialysis 400 Output: Urine 40 10 70 Hemodialysis 2400 Other: Voiding Method Indwelling Catheter Indwelling Catheter Indwelling Catheter - Constitutional General appearance: Present: average body habitus, no acute distress - EENT Eyes: Present: anicteric sclerae, EOMI ENT: Present: hearing grossly normal - Respiratory Details: breathing is mildly labored, remains on Bipap - Cardiovascular Details: skin warm and dry - Integumentary Integumentary: Present: pale - Musculoskeletal Musculoskeletal: Present: generalized weakness - Psychiatric Psychiatric: Present: A&O x's 3, appropriate affect, intact judgment & insight - Labs CBC & Chem 7: 02/10/23 06:49 02/10/23 06:49 Labs: Abnormal Lab Results - Last 24 Hours (Table) 02/09/23 02/09/2302/10/23 Range/Units 16:32 20:02 06:32 RBC (3.80-5.40) m/uL Hgb (11.4-16.0) gm/dL Hct (34.0-46.0) % RDW (11.5-15.5) % Plt Count (150-450) k/uL Lymphocytes # (Manual) (1.0-4.8) k/uL Metamyelocytes # (Man) (0) k/uL Myelocytes # (Manual) (0) k/uL Carbon Dioxide (22-30) mmol/L BUN (7-17) mg/dL Creatinine (0.52-1.04) mg/dL Glucose (74-99) mg/dL POC Glucose (mg/dL) 128 H 197 H 176 H (70-110) mg/dL Calcium (8.4-10.2) mg/dL 02/10/23 02/10/23 02/10/23 Range/Units 06:49 06:49 11:30 RBC 2.83 L (3.80-5.40) m/uL Hgb 7.1 L (11.4-16.0) gm/dL Hct 22.9 L (34.0-46.0) % RDW 23.7 H (11.5-15.5) % Plt Count 52 L (150-450) k/uL Lymphocytes # (Manual) 0.86 L (1.0-4.8) k/uL Metamyelocytes # (Man) 0.38 H (0) k/uL Myelocytes # (Manual) 0.10 H (0) k/uL Carbon Dioxide 21 L (22-30) mmol/L BUN 78 H (7-17) mg/dL Creatinine 2.09 H (0.52-1.04) mg/dL Glucose 157 H (74-99) mg/dL POC Glucose (mg/dL) 204 H (70-110) mg/dL Calcium 7.1 L (8.4-10.2) mg/dL Microbiology - Last 24 Hours (Table) 02/09/23 10:00 Gram Stain - Preliminary Sputum Sputum Culture - Preliminary - Imaging and Cardiology Chest x-ray: report reviewed Assessment and Plan (1) Abnormal CBC Current Visit: Yes Status: Acute Priority: High Code(s): R79.89 - OTHER SPECIFIED ABNORMAL FINDINGS OF BLOOD CHEMISTRY SNOMED Code(s): 192217839 (2) Acute diverticulitis Current Visit: Yes Status: Acute Priority: High Code(s): K57.92 - DVTRCLI OF INTEST, PART UNSP, W/O PERF OR ABSCESS W/O BLEED SNOMED Code(s): 040546483 (3) Anemia Current Visit: Yes Status: Acute Priority: High Code(s): D64.9 - ANEMIA, UNSPECIFIED SNOMED Code(s): 778994759 (4) Rectal bleeding Current Visit: Yes Status: Acute Priority: High Code(s): K62.5 - HEMORRHAGE OF ANUS AND RECTUM SNOMED Code(s): 80594118 (5) AML (acute myelogenous leukemia) Current Visit: Yes Status: Acute Priority: High Code(s): C92.00 - ACUTE MYELOBLASTIC LEUKEMIA, NOT HAVING ACHIEVED REMISSION SNOMED Code(s): 11210481 Plan: Anemia: -Hemoglobin 7.1 today. Has received 4 units PRBCs since admission, last transfusion 02/07 -Hx of GI bleeds. Denies any episodes of bleeding today -Iron studies obtained, iron 120, iron saturation 56%, ferritin 571. Likely elevated due to recent blood transfusions. 2 doses IV iron have been given -DIC workup negative. -Will continue to monitor. Please transfuse for hemoglobin less than 7 or if symptomatic GI bleed: -Hx of GI bleeds -EGD and colonoscopy on 12/17/22 showed no sign of acute GI bleed. -Surgery following. Repeat colonoscopy showed no acute GI bleed, but showed blood tinged stool and diverticular changes. Presumed to be diverticular bleeding. -Recommend to continue to hold eliquis/plavix/no NSAIDs. Heparin subq prophylactic ok, if platelets are greater than 50,000 AML: -Blast cells elevated, ranging from 1-9%. -Hx of multiple regimens of chemotherapy. Plan was to continue to monitor blast cell counts as patient recovers, and f/u outpatient to repeat labs in 4 weeks once patient fully recovers. However, due to continued elevation in blasts, bone marrow biopsy was obtained. Bone marrow results confirmed AML. Discussed results with patient today, and answered patients questions and concerns. Will plan for family meeting tomorrow with Dr. Alsawah to further discuss diagnosis and treatment options. -Clinic f/u appt in discharge plan
[2023-02-10] MEDS: HEPARIN SODIUM,PORCINE/PF 5,000 UNIT/0.5 ML SYRINGE SQ SCH ×2 (14:55→20:50)
[2023-02-10 16:23] LABS: Glucose,Whole Blood 138 mg/dL (70-110)
[2023-02-10] MEDS: LACTATED RINGERS 1,000 ML IV SCH (16:56)
[2023-02-10] MEDS: HYDROcodone/APAP 5-325MG 1 EACH TAB PO PRN (17:48)
[2023-02-10 19:55] LABS: Glucose,Whole Blood 159 mg/dL (70-110)
[2023-02-10] MEDS: NOREPINEPHRINE 8 MG in SODIUM CHLORIDE 0.9% 250 ML IV SCH (20:39)
--- NOTE | 2023-02-10 20:39 | P.PN ---
Subjective Progress Note Date: 02/10/23 Principal diagnosis: Fever possible pneumonia Patient is a 72-year-old female with a past medical history significant for hypertension hyperlipidemia diabetes mellitus CVA TIA cervical cancer did have a history of atrial fibrillation on anticoagulation presenting to the hospital on 01/22/2023 for evaluation of rectal bleeding , patient diagnosed with diverticulitis and has been treated with Levaquin and Flagyl, patient did have persistent fever requiring infectious disease consultation patient also have worsening of respiratory status requiring transplant ICU and did catheter right groin dialysis catheter started on dialysis as of 02/09/2023 On today's evaluation early 02/10/2023, the patient remains to be afebrile, the patient remains to be BiPAP dependent however is requiring 75% FiO2 patient also requiring a low dose Levophed to maintain her blood pressure, no vomiting diarrhea or any other changes reported by the nursing staff, patient is slightly more awake and alert today and did answer some simple questions Objective - Vital Signs Vital signs: Vital Signs Temp 98.0 F 02/10/23 12:00 Pulse 80 02/10/23 13:00 Resp 25 H 02/10/23 13:00 BP 104/59 02/10/23 13:00 Pulse Ox 93 L 02/10/23 13:00 FiO2 80 02/10/23 12:00 Intake & Output 02/09/23 02/10/23 02/10/23 18:59 06:59 18:59 Intake Total 740 219 129 Output Total 2440 10 105 Balance -1700 209 24 Weight 85.729 kg Intake: IV 240 219 129 0.9% @ KVO 110 120 30 Furosemide 100 mg In 30 Sodium Chloride 0.9% 90 ml @ 10 MG/HR 10 mls/hr IV .Q10H [facility] Rx#: [id number] Meropenem 1 gm In Sodium 100 99 99 Chloride 0.9% 100 ml @ 33 .3 mls/hr IVPB Q12HR [facility] Rx#:[id number] Intake, IV Titration 100 Amount Furosemide 100 mg In 100 Sodium Chloride 0.9% 90 ml @ 10 MG/HR 10 mls/hr IV .Q10H [facility] Rx#: [id number] Hemodialysis 400 Output: Urine 40 10 105 Hemodialysis 2400 Other: Voiding Method Indwelling Catheter Indwelling Catheter Indwelling Catheter - Exam GENERAL DESCRIPTION: An elderly female lying in bed in no distress RESPIRATORY SYSTEM: Unlabored breathing , decreased breath sounds at bases HEART: S1 S2 regular rate and rhythm , ABDOMEN: Soft , no tenderness EXTREMITIES: No edema feet - Labs CBC & Chem 7: 02/10/23 06:49 02/10/23 06:49 Labs: Abnormal Lab Results - Last 24 Hours (Table) 02/09/23 02/09/23 02/10/23 Range/Units 16:32 20:02 06:32 RBC (3.80-5.40) m/uL Hgb (11.4-16.0) gm/dL Hct (34.0-46.0) % RDW (11.5-15.5) % Plt Count (150-450) k/uL Lymphocytes # (Manual) (1.0-4.8) k/uL Metamyelocytes # (Man) (0) k/uL Myelocytes # (Manual) (0) k/uL Carbon Dioxide (22-30) mmol/L BUN (7-17) mg/dL Creatinine (0.52-1.04) mg/dL Glucose (74-99) mg/dL POC Glucose (mg/dL) 128 H 197 H 176 H (70-110) mg/dL Calcium (8.4-10.2) mg/dL 02/10/23 02/10/23 02/10/23 Range/Units 06:49 06:49 11:30 RBC 2.83 L (3.80-5.40) m/uL Hgb 7.1 L (11.4-16.0) gm/dL Hct 22.9 L (34.0-46.0) % RDW 23.7 H (11.5-15.5) % Plt Count 52 L (150-450) k/uL Lymphocytes # (Manual) 0.86 L (1.0-4.8) k/uL Metamyelocytes # (Man) 0.38 H (0) k/uL Myelocytes # (Manual) 0.10 H (0) k/uL Carbon Dioxide 21 L (22-30) mmol/L BUN 78 H (7-17) mg/dL Creatinine 2.09 H (0.52-1.04) mg/dL Glucose 157 H (74-99) mg/dL POC Glucose (mg/dL) 204 H (70-110) mg/dL Calcium 7.1 L (8.4-10.2) mg/dL Microbiology - Last 24 Hours (Table) 02/09/23 10:00 Gram Stain - Preliminary Sputum Sputum Culture - Preliminary Assessment and Plan (1) Fever Current Visit: Yes Status: Acute Code(s): R50.9 - FEVER, UNSPECIFIED SN OMED Code(s): 560236861 Plan: 1patient with sepsis in this patient who did have a fever elevated white count present to the hospital predominantly with the GI symptoms specially with abdominal pain and bleeding per rectum patient bleeding seems to have improved however still complaining of diarrhea with admission CT did shows evidence of sigmoid diverticulitis 2patient with multiple antibiotic allergies that would limit the number of antibiotics safe to use. 3patient did have elevated CRP procalcitonin chest x-ray concerning for possible left-sided pneumonia, sputum cultures obtained which are so for negative 4patient fever has resolved and the patient white count has normalized however patient did have worsening of respiratory status and has been transferred to the ICU , patient culture had been negative patient to continue with the current antibiotics of Azactam and Flagyl and monitor clinical course closely Time with Patient: Less than 30
[2023-02-10] MEDS: ATORVASTATIN 40 MG TAB PO SCH (20:55)
[2023-02-10] MEDS: BACLOFEN 10 MG TAB PO SCH (20:55)
[2023-02-11 00:12] LABS: Glucose,Whole Blood 156 mg/dL (70-110)
--- NOTE | 2023-02-11 04:21 | P.PN ---
Subjective Progress Note Date: 02/10/23 This is a pleasant 72 years old female with multiple medical problems including Atrial Fibrillation, Coronary Artery Disease (CAD), Cancer, COPD, CVA/TIA, Diabetes Mellitus, GERD/Reflux, Hyperlipidemia, Hypertension, Pneumonia, Sleep Apnea/CPAP/BIPAP, Syncope she was discharged from this facility one month ago forpossible GI bleed, TIA, syncope and bronchitis. She was visiting her surgeon yesterday in the outpatient setting and she was referred to emergency room, Patient states that since last Thursday about one week ago she noticed she was not eating well and she had only one piece of pizza because of that. She started having blood per rectum, she will not stretch blood with clots filled the toilet about 3-4 times a day, also she was feeling more lethargic and weak and she slept for 48 hours as she described, complaining OF from abdominal pain mainly in the lower abdomen on the right side since Thursday about /10 like colic comes and goes. Also patient has been vomiting 2-3 times per day but there is no blood. Also patient with poor appetite. Visiting nurse noticed that her blood pressure was on the low side about 80/40 so she decided to go and see her surgeon before here for her to the emergency room. However when I saw the patient this morning she was fully awake and oriented, she looks comfortable pleasant and not in distress, she was complaining only from minimal abdominal pain. On admission she had a fever of 101, she was hypotensive and severely anemic her blood pressure 1000 as79/45, was fluctuation up to 113/45,this morning her blood pressure was 91/46, she is saturating 93% on 3 L oxygen. hemoglobin on admission was 7.7 and 6.1, compared to 9.8 last month for shawn campo. She received 1 unit of blood transfusion and her hemoglobin this morning is 7.4.INR is normal mildly elevated lactic acid came back to normal. Basic metabolic panel and liver enzymes were unremarkable this morning. urine analysis is negative and multiple viruses are undetected including covid ,influenza and RSV she has CT of the abdomen and pelvis with IV contrast showing no bowel obstru ction with mild sigmoid diverticulitis she received 2 L of normal saline and antibiotics with Flagyl and Levaquin. echocardiogram from 04/03/2022 showing ejection fraction of 55-60% 01/24/2022 Patient feels better, she feels stronger, she was walking the hallway. Her blood pressure still borderline but is improving slowly and gradually while she is on IV fluids also she is on midodrine which she thinks is helping her She still reports some blood in his stool but it's mild Hemoglobin is stable about 7.5. She remains on Levaquin and IV Flagyl and normal saline at 1:30 milliliters per hour Check labs in the morning. Currently patient is placed on liquid diets 01/25/2023 Patient is having recurrent vomiting this morning with some worsening upper abdominal pain but her abdomen still looks soft, no guarding or rebound tenderness. She still has a few spots of bleeding per rectum and epistaxis which is mild. Blood pressure actually improved, with no tachycardia, we will alert her midodrine 5 mg twice a day and we'll alert her normal saline 200 mL per hour. She has worsening swelling in her extremities as well. KUB from today is negative for acute process. She remains on Flagyl and Levaquin Surgery team on the case and plan for endoscopy tomorrow treatment Continue with Phenergan 25 mg as patient states is helping her 01/26/2023 Patient is seen and evaluated in follow-up this morning reports she underwent a bowel prep and is scheduled for colonoscopy with general surgery services today. Patient reports she had clear stool and most recent bowel movement was free of any dark stools or blood. Patient also being followed closely and maintained on IV antibiotics in the form of Flagyl and Levaquin for acute diverticulitis. Hemoglobin is currently stable today at 7.7. WBC is elevated at 14.7 and patient will continue on antibiotics. Kidney functions are within normal limits and blood sugars being monitored. Recommend continue with IV Protonix twice daily. Patient is currently afebrile with no reports of chest pain or shortness of breath. Patient is continued on 2 L and would recommend weaning FiO2 as tolerated. Will await colonoscopy report. 01/27/2023 Patient is seen today and is being followed by general surgery as well as hematology. Patient hemoglobin is 7.1 today and wbc is elevated. Hematology recommending IV iron x2 as studies were low. Recommend repeat cbc in am. Patient is currently NPO and continued on IV abx in the form of flagyl and levaquin for diverticulitis. Colonoscopy shows no acute bleed noted, possibly diverticular disease along with sigmoid diverticulitis. Continue with pain management as patient reports abdominal cramping. Patient anticoagulant remains on hold. Patient is afebrile and has been up and walking. 01/28/2023 Patient is seen in follow up with morning and being followed by surgery as well as hematology. Patient hemoglobin is up to 8 today and has received IV iron x2. Patient blast cells 3 today with hematology following closely. Recommending outpatient follow up. Patient reports some improvement in abdominal pain and diet is being slowly advanced per surgery to clear liquids. Recommend to monitor for tolerance. Chest xray was ordered and pending. Patient continued on IV antibiotics and will continue. Need to discuss further with surgery about treatment plan. Patient is afebrile and continues with an elevated WBC. Recommend follow up labs in the am. 01/29/2023 Patient is seen in follow-up with surgery following. Patient hemoglobin is stable currently and maintained off anticoagulation. Patient is a new non-oral iron supplementation and will continue. Patient continues to have elevated WBC currently above 16 and blast cells at 4 today. Patient is continued on IV antibiotics for the diverticulitis and has been maintaining and tolerating clear liquid diet and reports improvement in her abdominal pain with no reports of nausea or vomiting. Chest x-ray showing some overload and patient reports to having some abdominal bloating as well as generalized edema and will give a dose of IV Lasix. Recommend discontinuing IV hydration. Will follow-up with repeat labs. Recommend incentive spirometer and continuing to use at least 10 times every hour while awake. Encouraged increased activity as tolerated patient reports has been up and walking to the whole back. Recommend continued physical therapy. 01/30/2023 Patient is seated evaluated in follow-up continuing to lie in the bed with gener alized weakness. Patient reports she has been up but not as much. Patient is to receive a PICC line in no being started on TPN given her poor oral intake. Electrolyte abnormalities noting potassium of 3.2 and magnesium is 1.1 and will replace and recommend repeat labs. Patient also continues to report abdominal bloating and abdomen is soft and nontender on exam. Patient did receive a dose of IV Lasix yesterday with good output. General surgery starting TPN with dietitian to follow. Encouraged incentive spirometer at the bedside as patient continues to be on oxygen it does not normally wear this in the outpatient setting. Wean FiO2 as tolerated. Repeat CBC shows a hemoglobin 7.1 today and blast cells are increased up to 9 and discussed with oncology team with plans for possible bone marrow biopsy on Thursday. 01/31/2023 Patient is seen and evaluated in follow-up and hemoglobin was 6.9 today and awaiting to receive 2 units of blood with hematology following closely. General surgery following as well and has placed the patient on TPN and has received a PICC line. Electrolytes were replaced in magnesium above 2 and potassium 3.5. Patient's blood pressure on the lower side most likely multifactorial with pain medications and low blood count will add midodrine. Kidney functions worsened along with patient's sodium becoming hyponatremic although difficult to give IV fluids as patient overload easily. Will consult nephrology and appreciate input and recommendations. Patient is afebrile with no reports of nausea or vomiting noted. No reported chest pain or worsening shortness of breath at this time. Patient needs increased activity as tolerated and sitting up in the chair more often. Would recommend PT/OT therapy daily. 02/01/2023 Patient is seen in follow-up today reports she is not feeling well and per nursing staff has been having fevers overnight and continued on antibiotics for diverticulitis with surgery following. Hematology/oncology following as well and planning for possible bone marrow biopsy tomorrow. Patient is continued on TPN and has PICC line continues with indwelling Fermin catheter. Patient is reporting diarrhea and abdominal distention with pain. Infectious disease consulted and pending. Blood sugars have been elevated and was continued on sliding scale and will continue and add long-acting as well. No reports of chest pain or palpitations noted. Patient is wearing oxygen does not normally wear oxygen outpatient. Patient continues with generalized weakness and is continued on clear liquids. 02/02/2023 Patient seen and evaluated in follow-up with multiple medical consultations following. Blast cells remain elevated and hemoglobin currently stable after transfusion. Patient scheduled for bone marrow biopsy in the a.m. Patient also continues on TPN with general surgery following recommending to continue along with IV antibiotics. Infectious disease has been consulted and antibiotics being adjusted as patient had continued fevers and elevated white count. Pro- calcitonin is elevated and will continue. Patient is having elevated blood sugars and have adjusted long-acting and will continue sliding scale and m onitoring closely. Patient is requiring more oxygen demand currently at 5 L and normally does not wear any oxygen. Chest x-ray ordered pending. 02/03/2023 Patient is seen and evaluated in follow-up today with multiple medical consultations following. Overall prognosis remains guarded as patient has multiple comorbidities and medical issues ongoing. Patient currently remains on TPN for poor oral intake and recommend monitoring electrolytes closely replacing per protocol. Patient hemoglobin improved with no active bleeding noted. Patient continues with abdominal pain as well as some shortness of breath and white count remains elevated patient is having fevers. Chest x-ray suggestive of some volume overload and will continue dose of Lasix. Patient underwent bone marrow biopsy with oncology today. Blood sugars remain uncontrolled and will add pre-meal insulins as well as continue long-acting and sliding scale, possibly consider insulin drip. 02/04/2023 Patient is seen and evaluated in follow-up this morning reports she feels somewhat improved although continues to require high flow oxygen and also using BiPAP with pulmonary following. Chest x-ray this morning is suggestive of pulmonary edema and pleural fluid which is the same or slightly worse than previous could be CHF and was given doses of Lasix with improvement. Patient being started on IV Lasix twice daily with nephrology following closely. Hemoglobin is stable at 7.7 and white count is 8.6, blast cells are 6 and oncology following and has underwent bone marrow biopsy which is pending. Kidney functions are stable in magnesium found to be 1.6 and will replace per protocol. Patient continues on TPN and continues to have multiple electrolyte abnormalities at times. Patient also extremely hyperglycemic and will attempt increasing the long-acting with increasing the pre-meal as well as continuing sliding scale and may require an insulin drip. Patient is also continued on IV antibiotics with infectious disease following closely and per medical record patient has been refusing aztreonam and unsure why. Recommend wean FiO2 as tolerated and encouraged increase activity as tolerated 02/05/2023 Patient is seen and evaluated in follow-up this morning currently sitting up at the side of the bed continues to report shortness of breath although feels is improved. Patient is using BiPAP on occasion and currently maintained on 15 L high flow. Patient is maintained on IV Lasix with nephrology following closely. Multiple medical consultations following including general surgery recommending to continue TPN for abdominal pain and poor oral intake. Would recommend decreasing the rate and amount of fluid from TPN and have discussed this with pharmacy along with dietary adjustments are being made. Patient's blood sugars are elevated although more controlled on current regimen and will continue. Hemoglobin found to be 6.9 this morning and will give a unit of PRBC and recommend follow-up labs. Patient is receiving DuoNeb treatments and would recommend follow-up chest x-ray in the a.m. Overall prognosis remains guarded. 02/06/2023 Patient is seen in follow-up today continued on BiPAP currently had increased respiratory distress requiring an a team last night and maintained on BiPAP and refusing to take it off she is having increasing shortness of breath. Patient is now continued on IV Lasix and TPN being discontinued. Patient is refusing all medications at this time and discuss with nursing staff about encouraging oral intake. Was notified from pharmacy they are out of TPN and okay to discontinue per surgery. Blood sugars improved although patient is not eating and will continue to monitor closely. Patient hemoglobin above 7 and WBC is patient is continued on antibiotics with ID following and has also been started on vancomycin in addition. Pro-calcitonin is elevated. Overall prognosis remains extremely guarded. 02/07/2023 Patient is seen in follow-up this morning currently on the stepdown unit with multiple medical consultations following with plans for transferring to ICU as respiratory status has declined once again and now maintained on continuous BiPA P with an 80% FiO2. Patient has been refusing to remove the BiPAP for any eating or medication and discussed with nursing staff the importance of medication administration as well as the patient. Oral intake remains poor and patient is lethargic. Patient's blood sugars have now been on the lower side as patient is not eating and will add just sliding scale and discontinue the long- acting had prerenal insulins for now. Recommend continue monitoring Accu-Cheks closely for any signs of hypoglycemia as well. Chest x-ray continues to show some overload versus possible pneumonia patient is maintained on IV aztreonam as well as vancomycin with infectious disease following closely. Overall prognosis remains extremely guarded at this time. Will follow-up with repeat labs in a.m. and monitor the patient closely in the ICU. 02/08/2023 Patient is seen in follow-up today has been moved to the ICU for close monitoring as patient's respiratory status has declined. Patient is on BiPAP continuous with an FiO2 of 80% and PEEP is 5. Patient is maintained on antibiotics with multiple medical consultations following in the form of aztreonam and vancomycin while awaiting repeat cultures. Patient did have multiple episodes of loose stools overnight and currently awaiting a C. diff sample. Patient noted to have decreased urine output with indwelling Fermin catheter placed with nephrology following slight bump in kidney functions and is being placed on IV Lasix drip at 10 mL's per hour. Will follow-up with repeat labs. Chest x-ray today shows bibasilar infiltrates with small pleural e ffusions correlate for CHF and pulmonary edema.. hemoglobin is stable above 7.5 with no active bleeding noted and will follow closely and transfuse of 7 or less. Blood sugars slightly improved and will continue on just sliding scale. A was on long-acting although not eating and having close to episodes of hypoglycemia. Patient encouraged oral intake and medication administration. Patient not tolerating taking the BiPAP mask off very well and desats quickly. Patient is currently 92-93% oxygen saturation with an FiO2 of 80% on the BiPAP. 02/09/2023 Patient is seen this morning in the ICU 100% BiPAP. Patient desats quickly although is able to take it off for brief periods of sips and medications. Patient with not much of an appetite and encouraged oral intake. Patient being followed by multiple medical consultations including nephrology and was on Lasix drip although having decreased urine output and worsening kidney functions now having vascular surgery consultation for hemodialysis. Patient is maintained on antibiotics with infectious disease following and awaiting repeat cultures. Aztreonam being discontinued and patient being started on meropenem with continued vancomycin. Monitor vancomycin trough levels closely with concerns of worsening kidney functions. Discussed CODE STATUS once again with the patient and wishes to remain full code at this time and patient is high risk for possible mechanical ventilation. 02/10/2023 Patient is seen and evaluated in the ICU with multiple medical consultations following. Patient's respiratory status deteriorated and maintained on BiPAP which has been titrated down to an FiO2 of 80% from 100% yesterday. Patient co ntinues to be short of breath with very minimal exertion has not been out of bed. Per nursing staff patient is attempting oral intake and is drinking but desats very quickly once of the BiPAP mask. 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 Plan for family meeting in the a.m. Chest x-ray continues to show consistency with pneumonia patient is maintained on antibiotics with infectious disease following closely. Hemoglobin is stable at 7.1 and will transfuse loss. Patient is currently afebrile and denies chest pain or palpitations. Patient did have a brief period of chest pain yesterday with troponin slightly elevated. Overall prognosis is poor and guarded and will follow-up after family meeting. Patient has been started on dialysis and will continue with another treatment tomorrow nephrology following closely. Review of systems: Constitutional: reports of fatigue, reports not feeling well Cardiovascular: No reports of chest pain or palpitations Respiratory: reports of worsening shortness of breath GI: No reports of nausea, vomiting, or diarrhea, reports decreased abdominal pain with no real appetite : No reports of dysuria or retention, reports decreased urine output Neurovascular: reports of generalized weakness All medications have been reviewed Active Medications Acetaminophen (Acetaminophen Tab 325 Mg Tab) 650 mg PO Q6HR PRN PRN Reason: Fever and/ or Mild Pain Last Admin: 02/05/23 03:44 Dose: 650 mg Hydrocodone Bitart/Acetaminophen (Hydrocodone/Apap 5-325mg 1 Each Tab) 1 each PO Q6HR PRN PRN Reason: Pain Last Admin: 02/10/23 17:48 Dose: 1 each Albuterol/Ipratropium (Ipratropium-Albuterol 3 Ml Neb) 3 ml INHALATION RT-QID ALIYAH Last Admin: 02/10/23 19:39 Dose: 3 ml Albuterol/Ipratropium (Ipratropium-Albuterol 3 Ml Neb) 3 ml INHALATION RT-Q2H PRN PRN Reason: Shortness Of Breath Or Wheezing Last Admin: 02/09/23 04:09 Dose: 3 ml Atorvastatin Calcium (Atorvastatin 40 Mg Tab) 40 mg PO HS [facility] Last Admin: 02/10/23 20:55 Dose: 40 mg Baclofen (Baclofen 10 Mg Tab) 10 mg PO HS [facility] Last Admin: 02/10/23 20:55 Dose: 10 mg Budesonide (Budesonide 1 Mg/2 Ml Nebu) 1 mg INHALATION RT-BID ALIYAH Last Admin: 02/10/23 19:39 Dose: 1 mg Dextrose/Water (Dextrose 50% Syringe 50 Ml) 25 ml IVP PER PROTOCOL PRN; Protocol PRN Reason: Hypoglycemia Last Admin: 02/07/23 14:12 Dose: 25 ml Dextrose/Water (Dextrose 50% Syringe 50 Ml) 50 ml IVP PER PROTOCOL PRN; Protocol PRN Reason: Hypoglycemia Ferrous Sulfate (Ferrous Sulfate 325 Mg Tab) 325 mg PO BID-W/MEALS ALIYAH Last Admin: 02/10/23 17:49 Dose: 325 mg Fluticasone Propionate (Fluticasone 50mcg/Jbphh Nasal 16gm) 2 spray EA NOSTRIL DAILY PRN PRN Reason: allergies Last Admin: 01/28/23 16:26 Dose: 2 spray Formoterol Fumarate (Formoterol Fumarate 20 Mcg/2 Ml Nebu) 20 mcg INHALATION RT-BID ALIYAH Last Admin: 02/10/23 19:39 Dose: 20 mcg Heparin Sodium (Porcine) (Heparin Sodium,Porcine/Pf 5,000 Unit/0.5 Ml Syringe) 5,000 unit SQ Q12HR ALIYAH Last Admin: 02/10/23 20:50 Dose: Not Given Hydromorphone HCl (Hydromorphone 1 Mg/Ml 1 Ml Syringe) 1 mg IVP Q3H PRN PRN Reason: Moderate to Severe Pain (4-10) Last Admin: 02/09/23 09:31 Dose: 1 mg Lactated Ringer's (Lactated Ringers) 1,000 mls @ 20 mls/hr IV .Q24H ALIYAH Last Admin: 02/10/23 16:56 Dose: Not Given Norepinephrine Bitartrate 8 mg (/ Sodium Chloride) 258 mls @ 4.977 mls/hr IV .Q24H ALIYAH; Protocol Last Admin: 02/10/23 20:39 Dose: Not Given Meropenem 1 gm/ Sodium (Chloride) 100 mls @ 33.3 mls/hr IVPB Q12HR ALIYAH; Prot ocol Last Admin: 02/10/23 20:56 Dose: 33.3 mls/hr Insulin Aspart (Insulin Aspart (Novolog) 100 Unit/Ml Vial) 0 unit SQ ACHS ALIYAH; Protocol Last Admin: 02/10/23 20:55 Dose: 2 unit Lidocaine HCl (Lidocaine 1% (10mg/Ml) For Iv Start) 0.1 ml INTRADERMA PER PROTOCOL PRN PRN Reason: IV Start Metolazone (Metolazone 5 Mg Tab) 5 mg PO DAILY [facility] Last Admin: 02/10/23 09:06 Dose: 5 mg Metoprolol Tartrate (Metoprolol Tartrate 25 Mg Tab) 25 mg PO BID ALIYAH Last Admin: 02/10/23 20:55 Dose: 25 mg Midodrine (Midodrine 5 Mg Tab) 10 mg PO AC-TID [facility] Last Admin: 02/10/23 17:49 Dose: 10 mg Miscellaneous Information (Potassium Replacement Protocol 1 Each Misc) 1 each MISCELLANE DAILY PRN; Protocol PRN Reason: Per Protocol Miscellaneous Information (Magnesium Replacement Protocol 1 Each Misc) 1 each MISCELLANE DAILY PRN; Protocol PRN Reason: Per Protocol Naloxone HCl (Naloxone 0.4 Mg/Ml 1 Ml Vial) 0.2 mg IV Q2M PRN PRN Reason: Opioid Reversal Ondansetron HCl (Ondansetron 4 Mg/2 Ml Vial) 4 mg IVP Q6HR PRN PRN Reason: Nausea And Vomiting Last Admin: 01/30/23 19:49 Dose: 4 mg Pantoprazole Sodium (Pantoprazole 40 Mg/10 Ml Vial) 40 mg IVP BID [facility] Last Admin: 02/10/23 20:56 Dose: 40 mg Promethazine HCl (Promethazine 25 Mg Tab) 25 mg PO Q6HR PRN PRN Reason: Nausea Last Admin: 01/27/23 13:51 Dose: 25 mg Sertraline HCl (Sertraline 50 Mg Tab) 50 mg PO DAILY [facility] Last Admin: 02/10/23 09:06 Dose: 50 mg Simethicone (Simethicone 80 Mg Chewable) 80 mg PO QID [facility] Last Admin: 02/10/23 20:40 Dose: Not Given Physical exam: GENERAL: The patient is alert and oriented x3, Well developed, well nourished. Obese, elderly and ill-appearing, now maintained on BiPAP continuous, FiO2 is 80 % with a PEEP of 5 HEENT: Pupils are round and equally reacting to light. EOMI. No scleral icterus. No conjunctival pallor. Normocephalic, atraumatic. No pharyngeal erythema. No thyromegaly. CARDIOVASCULAR: S1 and S2 muffled PULMONARY: Diminished breath sounds bilaterally with some scattered rhonchi and crackles noted ABDOMEN: Soft, obese, nontender, some bloating, nondistended, normoactive bowel sounds. No palpable organomegaly. MUSCULOSKELETAL: No joint swelling or deformity. EXTREMITIES: No cyanosis, clubbing, or pedal edema. NEUROLOGICAL: Gross neurological examination did not reveal any focal deficits. Diffusely weak SKIN: No rashes. no petechiae. 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 Atrial Fibrillation, on Eliquis (ON HOLD) status post Permanent Pacemaker history of anterior abdominal wall fluid collection could be related to seroma Coronary Artery Disease history, status post stent Obesity with BMI of 30.5 COPD, not in exacerbation CVA/TIA history with left foot drop Diabetes Mellitus, uncontrolled with hyperglycemia GERD/Reflux Hyperlipidemia Hypertension Sleep Apnea/CPAP/BIPAP Diabetic neuropathy bilateral legs/feet History of colon cancer with revision/colostomy since reversed and chemo/radiation History of PVD Full code Plan: Patient has been transferred to the ICU with close monitoring and remaining on continuous BiPAP with an FiO2 of 80% and PEEP is 5. Recommend continue with IV antibiotics with infectious disease following. Blood cultures thus far remain negative and sputum culture was sent and pending. WBC has improved and patient is afebrile Indwelling Fermin catheter with decreased urine output and nephrology following and has received a temporary dialysis catheter and is scheduled to receive dialysis again today and possibly tomorrow Oncology following patient underwent bone marrow biopsy on 02/03/2023, results confirmed AML and there is a family meeting in the a.m. to discuss diagnosis and options Recommend follow-up labs in a.m. Due to multiple complex medical issues, prognosis is extremely poor and guarded The impression and plan of care has been dictated by Mindy Saleh, Nurse Practitioner as directed. Dr. Celso MD I have performed a history and examination and MDM of this patient, discussed the same with the dictator, and agree with the dictator's assessment and plan as written ,documented as a scribe. Based on total visit time, I have performed more than 50% of the visit. Objective - Vital Signs Vital signs: Vital Signs Temp 98.1 F 02/11/23 00:00 Pulse 88 02/11/23 02:15 Resp 22 02/11/23 02:15 BP 96/47 02/11/23 02:15 Pulse Ox 92 L 02/11/23 02:15 FiO2 75 02/11/23 02:33 Intake & Output 02/10/23 02/10/23 02/11/23 06:59 18:59 06:59 Intake Total 219 489.396 180 Output Total 10 3430 40 Balance 209 -2940.604 140 Intake: IV 219 179 180 0.9% @ KVO 120 80 80 Meropenem 1 gm In Sodium 99 99 100 Chloride 0.9% 100 ml @ 33 .3 mls/hr IVPB Q12HR [facility] Rx#:[id number] Intake, IV Titration 10.396 Amount Norepinephrine 8 mg In 10.396 Sodium Chloride 0.9% 250 ml @ 0.03 MCG/KG/MIN 4. 977 mls/hr IV .Q24H [facility] Rx#:[id number] Hemodialysis 300 Output: Urine 10 130 40 Hemodialysis 3300 Other: Voiding Method Indwelling Catheter Indwelling Catheter Indwelling Catheter - Labs CBC & Chem 7: 02/10/23 06:49 02/10/23 06:49 Labs: Abnormal Lab Results - Last 24 Hours (Table) 02/10/23 02/10/23 02/10/23 Range/Units 06:32 06:49 06:49 RBC 2.83 L (3.80-5.40) m/uL Hgb 7.1 L (11.4-16.0) gm/dL Hct 22.9 L (34.0-46.0) % RDW 23.7 H (11.5-15.5) % Plt Count 52 L (150-450) k/uL Lymphocytes # (Manual) 0.86 L (1.0-4.8) k/uL Metamyelocytes # (Man) 0.38 H (0) k/uL Myelocytes # (Manual) 0.10 H (0) k/uL Carbon Dioxide 21 L (22-30) mmol/L BUN 78 H (7-17) mg/dL Creatinine 2.09 H (0.52-1.04) mg/dL Glucose 157 H (74-99) mg/dL POC Glucose (mg/dL) 176 H (70-110) mg/dL Calcium 7.1 L (8.4-10.2) mg/dL 02/10/23 02/10/2302/10/23 Range/Units 11:30 16:22 19:52 RBC (3.80-5.40) m/uL Hgb (11.4-16.0) gm/dL Hct (34.0-46.0) % RDW (11.5-15.5) % Plt Count (150-450) k/uL Lymphocytes # (Manual) (1.0-4.8) k/uL Metamyelocytes # (Man) (0) k/uL Myelocytes # (Manual) (0) k/uL Carbon Dioxide (22-30) mmol/L BUN (7-17) mg/dL Creatinine (0.52-1.04) mg/dL Glucose (74-99) mg/dL POC Glucose (mg/dL) 204 H 138 H 159 H (70-110) mg/dL Calcium (8.4-10.2) mg/dL 02/11/23 Range/Units 00:10 RBC (3.80-5.40) m/uL Hgb (11.4-16.0) gm/dL Hct (34.0-46.0) % RDW (11.5-15.5) % Plt Count (150-450) k/uL Lymphocytes # (Manual) (1.0-4.8) k/uL Metamyelocytes # (Man) (0) k/uL Myelocytes # (Manual) (0) k/uL Carbon Dioxide (22-30) mmol/L BUN (7-17) mg/dL Creatinine (0.52-1.04) mg/dL Glucose (74-99) mg/dL POC Glucose (mg/dL) 156 H (70-110) mg/dL Calcium (8.4-10.2) mg/dL Microbiology - Last 24 Hours (Table) 02/09/23 10:00 Gram Stain - Preliminary Sputum Sputum Culture - Preliminary
[2023-02-11 04:54] LABS: Glucose,Whole Blood 162 mg/dL (70-110)
[2023-02-11] MEDS: FERROUS SULFATE 325 MG TAB PO SCH ×2 (06:35→16:43)
[2023-02-11 06:41] LABS: Glucose,Whole Blood 156 mg/dL (70-110)
[2023-02-11] MEDS: MIDODRINE 5 MG TAB PO SCH ×3 (06:45→18:27)
[2023-02-11] MEDS: INSULIN ASPART (NovoLOG) 100 UNIT/ML VIAL SQ SCH ×4 (06:45→20:57)
[2023-02-11 07:07] LABS: Calcium 7.3 mg/dL (8.4-10.2); Potassium 3.8 mmol/L (3.5-5.1)
[2023-02-11] MEDS: IPRATROPIUM-ALBUTEROL 3 ML NEB INHALATION SCH ×4 (07:44→19:34)
[2023-02-11] MEDS: FORMOTEROL FUMARATE 20 MCG/2 ML NEBU INHALATION SCH ×2 (07:44→19:34)
[2023-02-11] MEDS: BUDESONIDE 1 MG/2 ML NEBU INHALATION SCH ×2 (07:44→19:34)
[2023-02-11 07:58] LABS: Anisocytosis Moderate; HCT 23.5 % (34.0-46.0); HGB 7.4 gm/dL (11.4-16.0); Hypochromasia Slight; MCHC 31.3 g/dL (31.0-37.0); MCV 79.9 fL (80.0-100.0); Mean Platelet Volume 8.8; Microcytosis Moderate; Poikilocytosis Slight; RBC 2.94 m/uL (3.80-5.40); RDW 23.8 % (11.5-15.5); WBC 12.4 k/uL (3.8-10.6)
[2023-02-11 08:01] LABS: Platelet Count 51 k/uL (150-450)
--- NOTE | 2023-02-11 08:24 | XR ---
EXAMINATION TYPE: XR chest 1V portable DATE OF EXAM: 02/11/2023 5:06 AM COMPARISON: Chest radiographs from 02/10/2023 TECHNIQUE: XR chest 1V portable Portable AP radiograph of the chest. CLINICAL INDICATION:Female, 72 years old with history of dyspnea; FINDINGS: Lungs/Pleura: Similar multifocal airspace opacities. No evidence of pneumothorax or pleural effusion. Pulmonary vascularity: Unremarkable. Heart/mediastinum: Cardiomediastinal silhouette is unremarkable. A loop recorder projects over the le ft thorax over the heart. Musculoskeletal: No acute osseous pathology. IMPRESSION: Similar multifocal airspace opacities.
[2023-02-11] MEDS: PANTOPRAZOLE 40 MG/10 ML VIAL IVP SCH ×2 (09:31→20:57)
[2023-02-11] MEDS: MEROPENEM 1 GM in SODIUM CHLORIDE 0.9% 100 ML IVPB SCH ×2 (09:31→20:56)
[2023-02-11] MEDS: HEPARIN SODIUM,PORCINE/PF 5,000 UNIT/0.5 ML SYRINGE SQ SCH ×2 (09:31→20:56)
[2023-02-11] MEDS: METOPROLOL TARTRATE 25 MG TAB PO SCH ×3 (09:31→20:57)
[2023-02-11] MEDS: metOLazone 5 MG TAB PO SCH ×2 (09:32→16:43)
[2023-02-11] MEDS: SERTRALINE 50 MG TAB PO SCH ×2 (09:32→16:44)
--- NOTE | 2023-02-11 09:49 | P.PN ---
Subjective Progress Note Date: 02/11/23 On today's evaluation of 02/09/2023, the patient is being seen for a follow-up. She is in obvious respiratory failure and the patient is currently on a BiPAP at a pressure of 12/7 cm of water with FiO2 of 100%. Pulse ox is in the order of 93-94%. She is very much dependent on the BiPAP and unable to come off the BiPAP because of significant desaturations. Generator tidal volume on the BiPAP machine is in the order of 800 mL with a respiratory rate of 25. Blood gases has not been done. Echocardiogram has not been repeated. The last blood gas that we have on this patient is from 02/08/2023 that showed impaired oxygenation with a PE or 2 of 79. Meanwhile, the most recent chest x-ray from today shows diffuse bilateral pulmonary infiltrates and there is no obvious area of consolidation in the right upper lobe. Nevertheless, the infiltrates are rather diffuse. Noted the patient had a mildly elevated pro-calcitonin level of 0.32 at the time of admission and her pro-calcitonin gradually went up to 4.07. At the same time, the patient developed an acute kidney injury. Creatinine today is up to 1.7 and she is not producing any urine output. Nephrology has been involved and the patient is being prepared to undergo hemodialysis after insertion of a hemodialysis catheter. She is on a Lasix drip running at 10 mg an hour without any success in improving the urine output. She is also on Zaroxolyn at a dose of 5 mg by mouth G today. Cardiac rhythm is sinus. Note that she has undergone a previous percutaneous transaortic aortic valve replacement and this was done in 2021. His sodium level is at 136 with a potassium level of 4.2. Serum bicarb is at 10. BMs at 75 with a creatinine of 1.7. The white cell count today's of 8.9 with a hemoglobin of 7.9. Platelet count has dropped onto 55. She is covered with antibiotics. She is on a combination of vancomycin and the trough being at around 40 and she is also on aztreonam. No cultures are available. On today's evaluation of 02/10/2023, the patient is being seen for a follow-up. She remains in hypoxic respiratory failure BiPAP dependent at pressure of 12/7 cm of water with an FiO2 of 90%. Chest x-ray is essentially unchanged. There is diffuse but the pulmonary infiltrates and increased consolidation of the right upper lobe. Antibiotics were modified and the patient and the patient was started on IV meropenem yesterday. Breathing is labored. She is tachypneic. Generating tidal volume in the order of 600 mL and the patient's minute ventilation is around 15 L/m. Very much BiPAP dependent, unable to come off the BiPAP because of respiratory compromise. At the same time, an echocardiogram was completed yesterday and the patient has a preserved LV function with an ejection fraction of 65%. Nevertheless, the patient had significant degree of aortic valve disease. The patient moderate to severe aortic stenosis and the possibility of a left ventricular outflow tract obstruction cannot be completely excluded. The patient also had [id number] mitral stenosis, moderate severe mitral annular calcification. There was moderate right-sided hypertrophy and right ventricular dysfunction. Right ventricular systolic pressure was estimated to be 61 mmHg. Noted the patient was started on hemodialysis yesterday. A dialysis catheter was inserted in her right femoral artery. She was given a first session of hemodialysis yesterday and the patient had ultrafiltration of 2 L.. Urine output remains extremely low. Lasix drip has been discontinued and the patient remains on Zaroxolyn. Urine output has been only in the order of 10 mL over the past 8 hours. She is afebrile. She is hemodynamically stable on no pressors. The white cycles of 9.6 with a hemoglobin of 7.1. Platelet counts are still pending for now. Meanwhile, the bone marrow biopsy that was done earlier was quite abnormal. The patient has around 10% of blasts within the bone marrow consistent with high degree malignant myeloid neoplasm, with the possibility of a evolving acute leukemia. The patient had sputum cultures sent yesterday and that is also still pending for now. No other positive cultures thus far. Vancomycin level random from 02/09/2023 is 33. On today's evaluation of 02/11/2023, the patient is being seen for a follow-up. She is still essentially BiPAP dependent. Unable to wean her off the BiPAP shayna ent remains on a pressure of 12/7 cm of water with FiO2 of 75%. I do appreciate some improvement in his chest x-ray findings/in the right upper lobe of the consolidation is less dense and there is improved aeration the upper lobes bilaterally. The FiO2 has been weaned down to 75%. She is breathing adequately on the BiPAP and she seems to be less labored compared to yesterday. She is able to generator tidal volume of above 600. Her minute ventilation is around 14-15 L. Her pulse ox is currently at 92%. She underwent hemodialysis yesterday with a total of 3 L of ultrafiltration. As such, the patient is in a negative fluid balance. She is known to have aortic valve disease and she has undergone previous TaVR and repeat echocardiogram showed the possibility of a left ocular outflow obstruction. She has a preserved ejection fraction. 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 Hematology oncology is on the case. Unfortunately, with her ongoing issues, no treatment will be offered other than supportive treatment in regards to her acute leukemia. Her blasts of elevated for now and she cannot handle any, systemic chemotherapy. Hematologic profile is obviously abnormal along with AML. There is hemoglobin is at 7.4 with a platelet count of 51 and a white cell count of 12.4. Rest of the electrodes are all stable. BUN is at 71 with a creatinine of 1.7. The patient is hemodynamically stable. The patient i s on no pressors. The patient is in normal sinus rhythm. Antibiotic coverage included a combination of meropenem and vancomycin. Noted the vancomycin trough is being monitored. She was toxic on her level and a most recent level from 02/09/2023 was at 33. The most recent pro-calcitonin level from 02/09/2020 was elevated at 4.07. Objective - Vital Signs Vital signs: Vital Signs Temp 97.8 F 02/11/23 04:00 Pulse 98 02/11/23 09:15 Resp 20 02/11/23 09:15 BP 108/49 02/11/23 09:15 Pulse Ox 96 02/11/23 09:15 FiO2 100 02/11/23 09:00 Intake & Output 02/10/23 02/11/23 02/11/23 18:59 06:59 18:59 Intake Total 489.396 220 30 Output Total 3430 55 13 Balance -2940.604 165 17 Intake: IV 179 220 30 0.9% @ KVO 80 120 30 Meropenem 1 gm In Sodium 99 100 Chloride 0.9% 100 ml @ 33 .3 mls/hr IVPB Q12HR [facility] Rx#:[id number] Intake, IV Titration 10.396 Amount Norepinephrine 8 mg In 10.396 Sodium Chloride 0.9% 250 ml @ 0.03 MCG/KG/MIN 4. 977 mls/hr IV .Q24H [facility] Rx#:[id number] Hemodialysis 300 Output: Urine 130 55 13 Hemodialysis 3300 Other: Voiding Method Indwelling Catheter Indwelling Catheter - Exam No acute distress, oriented 3. Currently on BiPAP. The patient is current on a pressures of 12/7 cm of water FiO2 75%. She is lethargic. She is weak. She is bedbound. She is tolerating full face BiPAP mask for now. Pulse ox is currently in the order of 93-94%. Head exam was generally normal. There was no scleral icterus or corneal arcus. Mucous membranes were moist. HEENT examination is grossly unremarkable. Neck supple. Full range of motion. No adenopathy thyromegaly or neck vein distention. Cardiovascular examination reveals regular rhythm rate. S1-S2 normal. No S3 or S4. Systolic ejection murmur grade 3/6 over the left lateral sternal border and apex. Heart sounds are distant. Lungs reveal scattered bilateral rhonchi, and crackles. Breath sounds equal. No wheezes. Diminished breath on the lung bases bilaterally. AAbdominal exam revealed normal bowel sounds. The abdomen was soft, non-tender, and without masses, organomegaly, or appreciable enlargement of the abdominal aorta. Extremities are intact. No cyanosis or clubbing. Mild edema noted. Skin is without rash or lesion. Neurologic examination is brief but nonfocal. - Labs CBC & Chem 7: 02/11/23 07:37 02/11/23 05:56 Labs: Abnormal Lab Results - Last 24 Hours (Table) 02/10/23 02/10/23 02/10/23 Range/Units 06:49 11:30 16:22 WBC (3.8-10.6) k/uL RBC (3.80-5.40) m/uL Hgb (11.4-16.0) gm/dL Hct (34.0-46.0) % MCV (80.0-100.0) fL RDW (11.5-15.5) % Plt Count 52 L (150-450) k/uL Lymphocytes # (Manual) 0.86 L (1.0-4.8) k/uL Metamyelocytes # (Man) 0.38 H (0) k/uL Myelocytes # (Manual) 0.10 H (0) k/uL Carbon Dioxide (22-30) mmol/L BUN (7-17) mg/dL Creatinine (0.52-1.04) mg/dL Glucose (74-99) mg/dL POC Glucose (mg/dL) 204 H 138 H (70-110) mg/dL Calcium (8.4-10.2) mg/dL 02/10/23 02/11/23 02/11/23 Range/Units 19:52 00:10 04:50 WBC (3.8-10.6) k/uL RBC (3.80-5.40) m/uL Hgb (11.4-16.0) gm/dL Hct (34.0-46.0) % MCV (80.0-100.0) fL RDW (11.5-15.5) % Plt Count (150-450) k/uL Lymphocytes # (Manual) (1.0-4.8) k/uL Metamyelocytes # (Man) (0) k/uL Myelocytes # (Manual) (0) k/uL Carbon Dioxide (22-30) mmol/L BUN (7-17) mg/dL Creatinine (0.52-1.04) mg/dL Glucose (74-99) mg/dL POC Glucose (mg/dL) 159 H 156 H 162 H (70-110) mg/dL Calcium (8.4-10.2) mg/dL 02/11/23 02/11/23 02/11/23 Range/Units 05:56 06:40 07:37 WBC 12.4 H (3.8-10.6) k/uL RBC 2.94 L (3.80-5.40) m/uL Hgb 7.4 L (11.4-16.0) gm/dL Hct 23.5 L (34.0-46.0) % MCV 79.9 L (80.0-100.0) fL RDW 23.8 H (11.5-15.5) % Plt Count 51 L (150-450) k/uL Lymphocytes # (Manual) (1.0-4.8) k/uL Metamyelocytes # (Man) (0) k/uL Myelocytes # (Manual) (0) k/uL Carbon Dioxide 21 L (22-30) mmol/L BUN 71 H (7-17) mg/dL Creatinine 1.72 H (0.52-1.04) mg/dL Glucose 142 H (74-99) mg/dL POC Glucose (mg/dL) 156 H (70-110) mg/dL Calcium 7.3 L (8.4-10.2) mg/dL Microbiology - Last 24 Hours (Table) 02/09/23 10:00 Gram Stain - Preliminary Sputum Sputum Culture - Preliminary Assessment and Plan Plan: Acute hypoxemic respiratory failure, with progressive shortness of breath, and worsening saturations, likely multifactorial, in part related to fluid overload, as well as possible pneumonia, left midlung and left perihilar region. There is extensive consolidation of the right upper lobe. Patient is producing thick purulent sputum. At the same time, the patient's pro-calcitonin level has been progressively on the rise. Most recent chest x-ray from today shows some improvement in aeration upper lobe and improvement in the right upper lobe consolidation. As such, acute hypoxic respiratory failure is multifactorial probably related to a combination of interstitial edema/pulmonary edema and pneumonia. She is being dialyzed. She is covered with antibiotics and she is on a combination of meropenem and vancomycin. The vancomycin was discontinued as the patient's levels were quite elevated in the setting of an acute kidney injury. The patient remains BiPAP dependent at pressure of 12/7 cm of water. FiO2 has been weaned down to 75%. Dyspnea secondary to above, still BiPAP dependent GI bleeding currently inactive and stable. Note that the Initial admission to hospital for GI bleeding, with negative colonoscopy. 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 Moderate to severe aortic valve stenosis with a possibility of a left ventricular outflow obstruction and moderate degree of mitral regurgitation with calcifications. History of atrial fibrillation. The current cardiac rhythm is sinus History of CAD. History of CVA. History of COPD, secondary to ongoing tobacco use with nicotine addiction. Diabetes mellitus 2 currently on sliding scale coverage GERD. Hyperlipidemia. History of hypertension. History of obstructive sleep apnea syndrome. History of cervical cancer. Acute kidney injury, failed diuretics and the patient is currently undergoing hemodialysis. Since session of hemodialysis was done yesterday Acute myeloid leukemia, please refer to the results of the bone marrow biopsy Acute thrombocytopenia secondary to above Anemia, normocytic, secondary to above as the patient is a component of acute myeloid leukemia and hemoglobin is at 7.4 Plan: We are dealing with a very complicated case. The patient has acute hypoxic respiratory failure and she is BiPAP dependent. He does have underlying acute myelogenous leukemia. Continue BiPAP for now with a high risk of this patient requiring intubation mechanical ventilation. We'll try to provide another session of hemodialysis today with ultrafiltration as the patient is showing some limited response and her oxygenation and chest x- ray findings while being on hemodialysis and ultrafiltration. Continue same antibiotic coverage with meropenem and vancomycin. Repeat another vancomycin level Repeat echo was noted Monitor the platelet count and stop the subcu heparin once the platelet count of less than 50. She's not showing any signs of bleeding at this point in time. Bone marrow biopsies consistent with acute myelogenous leukemia, involving with increased blasts. We'll consult with hematology oncology this regard, obviously this case a very poor prognosis especially the patient is not a candidate for any further systemic treatment. Condition is obviously very critical We'll continue to follow Would like to talk to the patient and the family about CODE STATUS. I think hospice care should be reasonable for this patient pressure with the above- mentioned comorbidities. Critical care evaluation, > 30 min the cultures
[2023-02-11 10:24] LABS: Band Neutrophils % 2 %; Blast Cells # (M) 0.62 k/uL (0); Eosinophils # (M) 0.37 k/uL (0-0.7); Lymphocytes # (M) 1.61 k/uL (1.0-4.8); Metamyelocytes # (M) 0.25 k/uL (0); Metamyelocytes % 2 %; Monocytes # (M) 1.24 k/uL (0-1.0); Myelocytes # (M) 0.25 k/uL (0); Myelocytes % 2 %; Neutrophils % (M) 65 %; Nucleated Red Blood Cells 0 /100 WBC (0-0); Total Cells Counted 200
[2023-02-11 10:25] LABS: RBC Fragments Present
--- NOTE | 2023-02-11 10:26 | P.PN ---
Subjective Patient is seen for follow-up for acute kidney injury and hyponatremia. Renal function had initially improved with correction of hyponatremia as well however, patient was transferred to ICU due to acute hypoxic respiratory failure secondary to volume overload and pneumonia needing BiPAP on 02/07/2023 She has been hypotensive and required pressors. Renal function subsequently deteriorated with severe oliguria necessitating initiation of renal replacement therapy. Started hemodialysis on 02/09/2023 Vancomycin was held, the level did come back elevated at 40.5 Patient had 3.3 L of ultrafiltration with hemodialysis yesterday. Patient is currently on BiPAP. She is awake appears to be more comfortable. FiO2 has been decreased. Urine output remains minimal Objective - Vital Signs Vital signs: Vital Signs Temp 97.8 F 02/11/23 04:00 Pulse 98 02/11/23 09:15 Resp 20 02/11/23 09:15 BP 108/49 02/11/23 09:15 Pulse Ox 96 02/11/23 09:15 FiO2 100 02/11/23 09:00 Intake & Output 02/10/23 02/11/23 02/11/23 18:59 06:59 18:59 Intake Total 489.396 220 30 Output Total 3430 55 13 Balance -2940.604 165 17 Intake: IV 179 220 30 0.9% @ KVO 80 120 30 Meropenem 1 gm In Sodium 99 100 Chloride 0.9% 100 ml @ 33 .3 mls/hr IVPB Q12HR [facility] Rx#:[id number] Intake, IV Titration 10.396 Amount Norepinephrine 8 mg In 10.396 Sodium Chloride 0.9% 250 ml @ 0.03 MCG/KG/MIN 4. 977 mls/hr IV .Q24H [facility] Rx#:[id number] Hemodialysis 300 Output: Urine 130 55 13 Hemodialysis 3300 Other: Voiding Method Indwelling Catheter Indwelling Catheter - Exam Patient is awake, no acute distress Currently on BiPAP Alert oriented 3 Examination of the heart S1 and S2 Examination the lungs decreased breath sounds at the bases with basilar crackles heard Abdomen is soft obese Examination of lower extremity shows edema 1+ bilaterally [employer] exam grossly intact - Labs CBC & Chem 7: 02/11/23 07:37 02/11/23 05:56 Labs: Abnormal Lab Results - Last 24 Hours (Table) 02/10/23 02/10/23 02/10/23 Range/Units 06:49 11:30 16:22 WBC (3.8-10.6) k/uL RBC (3.80-5.40) m/uL Hgb (11.4-16.0) gm/dL Hct (34.0-46.0) % MCV (80.0-100.0) fL RDW (11.5-15.5) % Plt Count 52 L (150-450) k/uL Lymphocytes # (Manual) 0.86 L (1.0-4.8) k/uL Metamyelocytes # (Man) 0.38 H (0) k/uL Myelocytes # (Manual) 0.10 H (0) k/uL Carbon Dioxide (22-30) mmol/L BUN (7-17) mg/dL Creatinine (0.52-1.04) mg/dL Glucose (74-99) mg/dL POC Glucose (mg/dL) 204 H 138 H (70-110) mg/dL Calcium (8.4-10.2) mg/dL 02/10/23 02/11/23 02/11/23 Range/Units 19:52 00:10 04:50 WBC (3.8-10.6) k/uL RBC (3.80-5.40) m/uL Hgb (11.4-16.0) gm/dL Hct (34.0-46.0) % MCV (80.0-100.0) fL RDW (11.5-15.5) % Plt Count (150-450) k/uL Lymphocytes # (Manual) (1.0-4.8) k/uL Metamyelocytes # (Man) (0) k/uL Myelocytes # (Manual) (0) k/uL Carbon Dioxide (22-30) mmol/L BUN (7-17) mg/dL Creatinine (0.52-1.04) mg/dL Glucose (74-99) mg/dL POC Glucose (mg/dL) 159 H 156 H 162 H (70-110) mg/dL Calcium (8.4-10.2) mg/dL 02/11/23 02/11/23 02/11/23 Range/Units 05:56 06:40 07:37 WBC 12.4 H (3.8-10.6) k/uL RBC 2.94 L (3.80-5.40) m/uL Hgb 7.4 L (11.4-16.0) gm/dL Hct 23.5 L (34.0-46.0) % MCV 79.9 L (80.0-100.0) fL RDW 23.8 H (11.5-15.5) % Plt Count 51 L (150-450) k/uL Lymphocytes # (Manual) (1.0-4.8) k/uL Metamyelocytes # (Man) (0) k/uL Myelocytes # (Manual) (0) k/uL Carbon Dioxide 21 L (22-30) mmol/L BUN 71 H (7-17) mg/dL Creatinine 1.72 H (0.52-1.04) mg/dL Glucose 142 H (74-99) mg/dL POC Glucose (mg/dL) 156 H (70-110) mg/dL Calcium 7.3 L (8.4-10.2) mg/dL Microbiology - Last 24 Hours (Table) 02/09/23 10:00 Gram Stain - Preliminary Sputum Sputum Culture - Preliminary Assessment and Plan Assessment: 1. Acute kidney injury initially prerenal secondary to acute blood loss anemia and hypotension. Renal function had improved with creatinine down to 0.8 mg/dL. Serum creatinine has increased again with poor urine output secondary to hypotension and vancomycin toxicity. UA benign. No hydronephrosis noted on imaging. no improvement in urine output with Lasix drip. Patient is started on hemodialysis on 02/09/2023. 2. Acute GI bleed status post blood transfusion this admission. No active bleeding noted on colonoscopy. Hemoglobin 7.9 today. Hematology and surgery following. Underwent bone marrow aspiration this admission. Status post blood transfusions this admission. 3. Hyponatremia. Hypervolemic. Improved 4. Hypomagnesemia from GI losses and poor intake. Replaced. 5. Hypokalemia from poor intake and hypomagnesemia. Replaced. 6. Volume overload. No response to Lasix drip. Patient has been started on hemodialysis 7. Acute hypoxic respiratory failure maintained on BiPAP Plan: Repeat Hemodialysis today and then again in a.m. Increase goal UF to about 3 L as tolerated Continue with midodrine
[2023-02-11 11:46] LABS: Glucose,Whole Blood 232 mg/dL (70-110)
[2023-02-11] MEDS: NOREPINEPHRINE 8 MG in SODIUM CHLORIDE 0.9% 250 ML IV SCH (13:28)
--- NOTE | 2023-02-11 13:49 | P.PN ---
Subjective Progress Note Date: 02/11/23 Principal diagnosis: Fever possible pneumonia Patient is a 72-year-old female with a past medical history significant for hypertension hyperlipidemia diabetes mellitus CVA TIA cervical cancer did have a history of atrial fibrillation on anticoagulation presenting to the hospital on 01/22/2023 for evaluation of rectal bleeding , patient diagnosed with diverticulitis and has been treated with Levaquin and Flagyl, patient did have persistent fever requiring infectious disease consultation patient also have worsening of respiratory status requiring transplant ICU and did catheter right groin dialysis catheter started on dialysis as of 02/09/2023 On today's evaluation early 02/10/2023, the patient continues to be afebrile, the patient remains to be BiPAP dependent however is currently requiring 75% FiO2 , patient is more awake and alert today and did answer some simple questions, no vomiting diarrhea or any other changes reported by the nursing staff Objective - Vital Signs Vital signs: Vital Signs Temp 97.9 F 02/11/23 12:00 Pulse 92 02/11/23 13:00 Resp 24 02/11/23 13:00 BP 119/54 02/11/23 13:00 Pulse Ox 94 L 02/11/23 13:00 FiO2 75 02/11/23 13:00 Intake & Output 02/10/23 02/11/23 02/11/23 18:59 06:59 18:59 Intake Total 489.396 220 70 Output Total 3430 55 36 Balance -2940.604 165 34 Weight 85.729 kg Intake: IV 179 220 70 0.9% @ KVO 80 120 70 Meropenem 1 gm In Sodium 99 100 Chloride 0.9% 100 ml @ 33 .3 mls/hr IVPB Q12HR [facility] Rx#:[id number] Intake, IV Titration 10.396 Amount Norepinephrine 8 mg In 10.396 Sodium Chloride 0.9% 250 ml @ 0.03 MCG/KG/MIN 4. 977 mls/hr IV .Q24H [facility] Rx#:[id number] Hemodialysis 300 Output: Urine 130 55 36 Hemodialysis 3300 Other: Voiding Method Indwelling Catheter Indwelling Catheter Indwelling Catheter - Exam GENERAL DESCRIPTION: An elderly female lying in bed in no distress RESPIRATORY SYSTEM: Unlabored breathing , decreased breath sounds at bases HEART: S1 S2 regular rate and rhythm , ABDOMEN: Soft , no tenderness EXTREMITIES: No edema feet - Labs CBC & Chem 7: 02/11/23 07:37 02/11/23 05:56 Labs: Abnormal Lab Results - Last 24 Hours (Table) 02/10/23 02/10/23 02/11/23 Range/Units 16:22 19:52 00:10 WBC (3.8-10.6) k/uL RBC (3.80-5.40) m/uL Hgb (11.4-16.0) gm/dL Hct (34.0-46.0) % MCV (80.0-100.0) fL RDW (11.5-15.5) % Plt Count (150-450) k/uL Blast Cells % % Neutrophils # (Manual) (1.3-7.7) k/uL Monocytes # (Manual) (0-1.0) k/uL Metamyelocytes # (Man) (0) k/uL Myelocytes # (Manual) (0) k/uL Blast Cells # (Man) (0) k/uL Carbon Dioxide (22-30) mmol/L BUN (7-17) mg/dL Creatinine (0.52-1.04) mg/dL Glucose (74-99) mg/dL POC Glucose (mg/dL) 138 H 159 H 156 H (70-110) mg/dL Calcium (8.4-10.2) mg/dL 02/11/23 02/11/23 02/11/23 Range/Units 04:50 05:56 06:40 WBC (3.8-10.6) k/uL RBC (3.80-5.40) m/uL Hgb (11.4-16.0) gm/dL Hct (34.0-46.0) % MCV (80.0-100.0) fL RDW (11.5-15.5) % Plt Count (150-450) k/uL Blast Cells % % Neutrophils # (Manual) (1.3-7.7) k/uL Monocytes # (Manual) (0-1.0) k/uL Metamyelocytes # (Man) (0) k/uL Myelocytes # (Manual) (0) k/uL Blast Cells # (Man) (0) k/uL Carbon Dioxide 21 L (22-30) mmol/L BUN 71 H (7-17) mg/dL Creatinine 1.72 H (0.52-1.04) mg/dL Glucose 142 H (74-99) mg/dL POC Glucose (mg/dL) 162 H 156 H (70-110) mg/dL Calcium 7.3 L (8.4-10.2) mg/dL 02/11/23 02/11/23 Range/Units 07:37 11:45 WBC 12.4 H (3.8-10.6) k/uL RBC 2.94 L (3.80-5.40) m/uL Hgb 7.4 L (11.4-16.0) gm/dL Hct 23.5 L (34.0-46.0) % MCV 79.9 L (80.0-100.0) fL RDW 23.8 H (11.5-15.5) % Plt Count 51 L (150-450) k/uL Blast Cells % 5 H* % Neutrophils # (Manual) 8.30 H (1.3-7.7) k/uL Monocytes # (Manual) 1.24 H (0-1.0) k/uL Metamyelocytes # (Man) 0.25 H (0) k/uL Myelocytes # (Manual) 0.25 H (0) k/uL Blast Cells # (Man) 0.62 H (0) k/uL Carbon Dioxide (22-30) mmol/L BUN (7-17) mg/dL Creatinine (0.52-1.04) mg/dL Glucose (74-99) mg/dL POC Glucose (mg/dL) 232 H (70-110) mg/dL Calcium (8.4-10.2) mg/dL Microbiology - Last 24 Hours (Table) 02/09/23 10:00 Gram Stain - Final Sputum Sputum Culture - Final Bridgette albicans Assessment and Plan (1) Fever Current Visit: Yes Status: Acute Code(s): R50.9 - FEVER, UNSPECIFIED SNOMED Code(s): 203938801 Plan: 1patient with sepsis in this patient who did have a fever elevated white count present to the hospital predominantly with the GI symptoms specially with abdominal pain and bleeding per rectum patient bleeding seems to have improved however still complaining of diarrhea with admission CT did shows evidence of sigmoid diverticulitis 2patient with multiple antibiotic allergies that would limit the number of antibiotics safe to use. 3patient did have elevated CRP procalcitonin chest x-ray concerning for po ssible left-sided pneumonia, sputum cultures obtained which are so for negative 4patient fever has resolved and the patient white count has normalized, patient antibiotics has been adjusted to meropenem per pulmonary will be continued and will monitor clinical course closely Time with Patient: Less than 30
[2023-02-11] MEDS: SIMETHICONE 80 MG CHEWABLE PO SCH ×4 (15:46→22:01)
[2023-02-11 16:26] LABS: Glucose,Whole Blood 126 mg/dL (70-110)
--- NOTE | 2023-02-11 17:22 | P.PN ---
Subjective Progress Note Date: 02/11/23 Principal diagnosis: anemia/elevated blast cells Upon visit today patient is resting in bed. She reports breathing is improved daily. She is still on BiPAP. Pt denies pain. No other reported complaints. Family meeting was planned for today to discuss bone marrow biopsy but there is no family present. Pt is unsure if any family is planning on coming in today. Objective - Vital Signs Vital signs: Vital Signs Temp 97.9 F 02/11/23 12:00 Pulse 92 02/11/23 13:00 Resp 24 02/11/23 13:00 BP 119/54 02/11/23 13:00 Pulse Ox 94 L 02/11/23 13:00 FiO2 75 02/11/23 13:00 Intake & Output 02/10/23 02/11/23 02/11/23 18:59 06:59 18:59 Intake Total 489.396 220 70 Output Total 3430 55 36 Balance -2940.604 165 34 Weight 85.729 kg Intake: IV 179 220 70 0.9% @ KVO 80 120 70 Meropenem 1 gm In Sodium 99 100 Chloride 0.9% 100 ml @ 33 .3 mls/hr IVPB Q12HR [facility] Rx#:[id number] Intake, IV Titration 10.396 Amount Norepinephrine 8 mg In 10.396 Sodium Chloride 0.9% 250 ml @ 0.03 MCG/KG/MIN 4. 977 mls/hr IV .Q24H [facility] Rx#:[id number] Hemodialysis 300 Output: Urine 130 55 36 Hemodialysis 3300 Other: Voiding Method Indwelling Catheter Indwelling Catheter Indwelling Catheter - Constitutional General appearance: Present: average body habitus, no acute distress - EENT Eyes: Present: anicteric sclerae, EOMI ENT: Present: hearing grossly normal - Respiratory Respiratory: bilateral: CTA - Cardiovascular Rhythm: regular Heart sounds: normal: S1, S2 Abnormal Heart Sounds: Absent: systolic murmur, diastolic murmur, rub, S3 G allop, S4 Gallop, click, other - Gastrointestinal General gastrointestinal: Present: normal bowel sounds, soft, tenderness Localized gastrointestinal: tender: epigastric periumbilical - Integumentary Integumentary: Present: pale - Musculoskeletal Musculoskeletal: Present: generalized weakness - Psychiatric Psychiatric: Present: A&O x's 3, appropriate affect, intact judgment & insight - Labs CBC & Chem 7: 02/11/23 07:37 02/11/23 05:56 Labs: Abnormal Lab Results - Last 24 Hours (Table) 02/10/23 02/10/23 02/11/23 Range/Units 16:22 19:52 00:10 WBC (3.8-10.6) k/uL RBC (3.80-5.40) m/uL Hgb (11.4-16.0) gm/dL Hct (34.0-46.0) % MCV (80.0-100.0) fL RDW (11.5-15.5) % Plt Count (150-450) k/uL Blast Cells % % Neutrophils # (Manual) (1.3-7.7) k/uL Monocytes # (Manual) (0-1.0) k/uL Metamyelocytes # (Man) (0) k/uL Myelocytes # (Manual) (0) k/uL Blast Cells # (Man) (0) k/uL Carbon Dioxide (22-30) mmol/L BUN (7-17) mg/dL Creatinine (0.52-1.04) mg/dL Glucose (74-99) mg/dL POC Glucose (mg/dL) 138 H 159 H 156 H (70-110) mg/dL Calcium (8.4-10.2) mg/dL 02/11/23 02/11/23 02/11/23 Range/Units 04:50 05:56 06:40 WBC (3.8-10.6) k/uL RBC (3.80-5.40) m/uL Hgb (11.4-16.0) gm/dL Hct (34.0-46.0) % MCV (80.0-100.0) fL RDW (11.5-15.5) % Plt Count (150-450) k/uL Blast Cells % % Neutrophils # (Manual) (1.3-7.7) k/uL Monocytes # (Manual) (0-1.0) k/uL Metamyelocytes # (Man) (0) k/uL Myelocytes # (Manual) (0) k/uL Blast Cells # (Man) (0) k/uL Carbon Dioxide 21 L (22-30) mmol/L BUN 71 H (7-17) mg/dL Creatinine 1.72 H (0.52-1.04) mg/dL Glucose 142 H (74-99) mg/dL POC Glucose (mg/dL) 162 H 156 H (70-110) mg/dL Calcium 7.3 L (8.4-10.2) mg/dL 02/11/23 02/11/23 Range/Units 07:37 11:45 WBC 12.4 H (3.8-10.6) k/uL RBC 2.94 L (3.80-5.40) m/uL Hgb 7.4 L (11.4-16.0) gm/dL Hct 23.5 L (34.0-46.0) % MCV 79.9 L (80.0-100.0) fL RDW 23.8 H (11.5-15.5) % Plt Count 51 L (150-450) k/uL Blast Cells % 5 H* % Neutrophils # (Manual) 8.30 H (1.3-7.7) k/uL Monocytes # (Manual) 1.24 H (0-1.0) k/uL Metamyelocytes # (Man) 0.25 H (0) k/uL Myelocytes # (Manual) 0.25 H (0) k/uL Blast Cells # (Man) 0.62 H (0) k/uL Carbon Dioxide (22-30) mmol/L BUN (7-17) mg/dL Creatinine (0.52-1.04) mg/dL Glucose (74-99) mg/dL POC Glucose (mg/dL) 232 H (70-110) mg/dL Calcium (8.4-10.2) mg/dL Microbiology - Last 24 Hours (Table) 02/09/23 10:00 Gram Stain - Final Sputum Sputum Culture - Final Bridgette albicans Assessment and Plan (1) Abnormal CBC Current Visit: Yes Status: Acute Priority: High Code(s): R79.89 - OTHER SPECIFIED ABNORMAL FINDINGS OF BLOOD CHEMISTRY SNOMED Code(s): 570869896 (2) Acute diverticulitis Current Visit: Yes Status: Acute Priority: High Code(s): K57.92 - DVTRCLI OF INTEST, PART UNSP, W/O PERF OR ABSCESS W/O BLEED SNOMED Code(s): 333614015 (3) Anemia Current Visit: Yes Status: Acute Priority: High Code(s): D64.9 - ANEMIA, UNSPECIFIED SNOMED Code(s): 808943411 (4) Rectal bleeding Current Visit: Yes Status: Acute Priority: High Code(s): K62.5 - HEMORRHAGE OF ANUS AND RECTUM SNOMED Code(s): 37032861 (5) AML (acute myelogenous leukemia) Current Visit: Yes Status: Acute Priority: High Code(s): C92.00 - ACUTE MYELOBLASTIC LEUKEMIA, NOT HAVING ACHIEVED REMISSION SNOMED Code(s): 29410349 Plan: Anemia: -Hemoglobin 7.4 today. Has received 4 units PRBCs since admission, last transfusion 02/07 -Hx of GI bleeds. Denies any episodes of bleeding today -Iron studies obtained, iron 120, iron saturation 56%, ferritin 571. Likely e levated due to recent blood transfusions. 2 doses IV iron have been given -DIC workup negative. -Will continue to monitor. Please transfuse for hemoglobin less than 7 or if symptomatic GI bleed: -Hx of GI bleeds -EGD and colonoscopy on 12/17/22 showed no sign of acute GI bleed. -Surgery following. Repeat colonoscopy showed no acute GI bleed, but showed blood tinged stool and diverticular changes. Presumed to be diverticular bleeding. -Recommend to continue to hold eliquis/plavix/no NSAIDs. Heparin subq prophylactic ok, if platelets are greater than 50,000 AML: -Blast cells elevated, ranging from 1-9%. -Hx of multiple regimens of chemotherapy and acute infectious and inflammatory processes could have attributed to acute rise in blast cells. However, due to persisting elevation in blast cells, bone marrow biopsy was obtained on 02/03. Bone marrow results confirmed AML. Cytogenetics and FISH pending. Spoke with pathology lab and should have results tomorrow. -Discussed results with patient yesterday. Family meeting was requested yesterday, but no family was there today for visit. Further discussed with patient results of biopsy confirming AML. Discussed that due to her current condition, treatment at this time would not be possible, until her breathing and condition became stable. 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 Will continue to monitor and await pending results. Pt will likely need rehab upon discharge. Tentative f/u in discharge plan, pending patients progression during admission. Will reschedule as needed. Pt verbalized understanding of discussion. attests: I have performed H&P and developed impression and plan of care for patient, discussed with dictator. I agree with dictated noted, documented as a scribe
[2023-02-11] MEDS: LACTATED RINGERS 1,000 ML IV SCH (20:21)
[2023-02-11 20:49] LABS: Glucose,Whole Blood 175 mg/dL (70-110)
[2023-02-11] MEDS: ATORVASTATIN 40 MG TAB PO SCH (20:56)
[2023-02-11] MEDS: HYDROcodone/APAP 5-325MG 1 EACH TAB PO PRN (20:57)
[2023-02-11] MEDS: BACLOFEN 10 MG TAB PO SCH (20:57)
--- NOTE | 2023-02-12 05:35 | P.PN ---
Subjective Progress Note Date: 02/11/23 This is a pleasant 72 years old female with multiple medical problems including Atrial Fibrillation, Coronary Artery Disease (CAD), Cancer, COPD, CVA/TIA, Diabetes Mellitus, GERD/Reflux, Hyperlipidemia, Hypertension, Pneumonia, Sleep Apnea/CPAP/BIPAP, Syncope she was discharged from this facility one month ago forpossible GI bleed, TIA, syncope and bronchitis. She was visiting her surgeon yesterday in the outpatient setting and she was referred to emergency room, Patient states that since last Thursday about one week ago she noticed she was not eating well and she had only one piece of pizza because of that. She started having blood per rectum, she will not stretch blood with clots filled the toilet about 3-4 times a day, also she was feeling more lethargic and weak and she slept for 48 hours as she described, complaining OF from abdominal pain mainly in the lower abdomen on the right side since Thursday about /10 like colic comes and goes. Also patient has been vomiting 2-3 times per day but there is no blood. Also patient with poor appetite. Visiting nurse noticed that her blood pressure was on the low side about 80/40 so she decided to go and see her surgeon before here for her to the emergency room. However when I saw the patient this morning she was fully awake and oriented, she looks comfortable pleasant and not in distress, she was complaining only from minimal abdominal pain. On admission she had a fever of 101, she was hypotensive and severely anemic her blood pressure 1000 as79/45, was fluctuation up to 113/45,this morning her blood pressure was 91/46, she is saturating 93% on 3 L oxygen. hemoglobin on admission was 7.7 and 6.1, compared to 9.8 last month for shawn campo. She received 1 unit of blood transfusion and her hemoglobin this morning is 7.4.INR is normal mildly elevated lactic acid came back to normal. Basic metabolic panel and liver enzymes were unremarkable this morning. urine analysis is negative and multiple viruses are undetected including covid ,influenza and RSV she has CT of the abdomen and pelvis with IV contrast showing no bowel obstru ction with mild sigmoid diverticulitis she received 2 L of normal saline and antibiotics with Flagyl and Levaquin. echocardiogram from 04/03/2022 showing ejection fraction of 55-60% 01/24/2022 Patient feels better, she feels stronger, she was walking the hallway. Her blood pressure still borderline but is improving slowly and gradually while she is on IV fluids also she is on midodrine which she thinks is helping her She still reports some blood in his stool but it's mild Hemoglobin is stable about 7.5. She remains on Levaquin and IV Flagyl and normal saline at 1:30 milliliters per hour Check labs in the morning. Currently patient is placed on liquid diets 01/25/2023 Patient is having recurrent vomiting this morning with some worsening upper abdominal pain but her abdomen still looks soft, no guarding or rebound tenderness. She still has a few spots of bleeding per rectum and epistaxis which is mild. Blood pressure actually improved, with no tachycardia, we will alert her midodrine 5 mg twice a day and we'll alert her normal saline 200 mL per hour. She has worsening swelling in her extremities as well. KUB from today is negative for acute process. She remains on Flagyl and Levaquin Surgery team on the case and plan for endoscopy tomorrow treatment Continue with Phenergan 25 mg as patient states is helping her 01/26/2023 Patient is seen and evaluated in follow-up this morning reports she underwent a bowel prep and is scheduled for colonoscopy with general surgery services today. Patient reports she had clear stool and most recent bowel movement was free of any dark stools or blood. Patient also being followed closely and maintained on IV antibiotics in the form of Flagyl and Levaquin for acute diverticulitis. Hemoglobin is currently stable today at 7.7. WBC is elevated at 14.7 and patient will continue on antibiotics. Kidney functions are within normal limits and blood sugars being monitored. Recommend continue with IV Protonix twice daily. Patient is currently afebrile with no reports of chest pain or shortness of breath. Patient is continued on 2 L and would recommend weaning FiO2 as tolerated. Will await colonoscopy report. 01/27/2023 Patient is seen today and is being followed by general surgery as well as hematology. Patient hemoglobin is 7.1 today and wbc is elevated. Hematology recommending IV iron x2 as studies were low. Recommend repeat cbc in am. Patient is currently NPO and continued on IV abx in the form of flagyl and levaquin for diverticulitis. Colonoscopy shows no acute bleed noted, possibly diverticular disease along with sigmoid diverticulitis. Continue with pain management as patient reports abdominal cramping. Patient anticoagulant remains on hold. Patient is afebrile and has been up and walking. 01/28/2023 Patient is seen in follow up with morning and being followed by surgery as well as hematology. Patient hemoglobin is up to 8 today and has received IV iron x2. Patient blast cells 3 today with hematology following closely. Recommending outpatient follow up. Patient reports some improvement in abdominal pain and diet is being slowly advanced per surgery to clear liquids. Recommend to monitor for tolerance. Chest xray was ordered and pending. Patient continued on IV antibiotics and will continue. Need to discuss further with surgery about treatment plan. Patient is afebrile and continues with an elevated WBC. Recommend follow up labs in the am. 01/29/2023 Patient is seen in follow-up with surgery following. Patient hemoglobin is stable currently and maintained off anticoagulation. Patient is a new non-oral iron supplementation and will continue. Patient continues to have elevated WBC currently above 16 and blast cells at 4 today. Patient is continued on IV antibiotics for the diverticulitis and has been maintaining and tolerating clear liquid diet and reports improvement in her abdominal pain with no reports of nausea or vomiting. Chest x-ray showing some overload and patient reports to having some abdominal bloating as well as generalized edema and will give a dose of IV Lasix. Recommend discontinuing IV hydration. Will follow-up with repeat labs. Recommend incentive spirometer and continuing to use at least 10 times every hour while awake. Encouraged increased activity as tolerated patient reports has been up and walking to the whole back. Recommend continued physical therapy. 01/30/2023 Patient is seated evaluated in follow-up continuing to lie in the bed with gener alized weakness. Patient reports she has been up but not as much. Patient is to receive a PICC line in no being started on TPN given her poor oral intake. Electrolyte abnormalities noting potassium of 3.2 and magnesium is 1.1 and will replace and recommend repeat labs. Patient also continues to report abdominal bloating and abdomen is soft and nontender on exam. Patient did receive a dose of IV Lasix yesterday with good output. General surgery starting TPN with dietitian to follow. Encouraged incentive spirometer at the bedside as patient continues to be on oxygen it does not normally wear this in the outpatient setting. Wean FiO2 as tolerated. Repeat CBC shows a hemoglobin 7.1 today and blast cells are increased up to 9 and discussed with oncology team with plans for possible bone marrow biopsy on Thursday. 01/31/2023 Patient is seen and evaluated in follow-up and hemoglobin was 6.9 today and awaiting to receive 2 units of blood with hematology following closely. General surgery following as well and has placed the patient on TPN and has received a PICC line. Electrolytes were replaced in magnesium above 2 and potassium 3.5. Patient's blood pressure on the lower side most likely multifactorial with pain medications and low blood count will add midodrine. Kidney functions worsened along with patient's sodium becoming hyponatremic although difficult to give IV fluids as patient overload easily. Will consult nephrology and appreciate input and recommendations. Patient is afebrile with no reports of nausea or vomiting noted. No reported chest pain or worsening shortness of breath at this time. Patient needs increased activity as tolerated and sitting up in the chair more often. Would recommend PT/OT therapy daily. 02/01/2023 Patient is seen in follow-up today reports she is not feeling well and per nursing staff has been having fevers overnight and continued on antibiotics for diverticulitis with surgery following. Hematology/oncology following as well and planning for possible bone marrow biopsy tomorrow. Patient is continued on TPN and has PICC line continues with indwelling Fermin catheter. Patient is reporting diarrhea and abdominal distention with pain. Infectious disease consulted and pending. Blood sugars have been elevated and was continued on sliding scale and will continue and add long-acting as well. No reports of chest pain or palpitations noted. Patient is wearing oxygen does not normally wear oxygen outpatient. Patient continues with generalized weakness and is continued on clear liquids. 02/02/2023 Patient seen and evaluated in follow-up with multiple medical consultations following. Blast cells remain elevated and hemoglobin currently stable after transfusion. Patient scheduled for bone marrow biopsy in the a.m. Patient also continues on TPN with general surgery following recommending to continue along with IV antibiotics. Infectious disease has been consulted and antibiotics being adjusted as patient had continued fevers and elevated white count. Pro- calcitonin is elevated and will continue. Patient is having elevated blood sugars and have adjusted long-acting and will continue sliding scale and m onitoring closely. Patient is requiring more oxygen demand currently at 5 L and normally does not wear any oxygen. Chest x-ray ordered pending. 02/03/2023 Patient is seen and evaluated in follow-up today with multiple medical consultations following. Overall prognosis remains guarded as patient has multiple comorbidities and medical issues ongoing. Patient currently remains on TPN for poor oral intake and recommend monitoring electrolytes closely replacing per protocol. Patient hemoglobin improved with no active bleeding noted. Patient continues with abdominal pain as well as some shortness of breath and white count remains elevated patient is having fevers. Chest x-ray suggestive of some volume overload and will continue dose of Lasix. Patient underwent bone marrow biopsy with oncology today. Blood sugars remain uncontrolled and will add pre-meal insulins as well as continue long-acting and sliding scale, possibly consider insulin drip. 02/04/2023 Patient is seen and evaluated in follow-up this morning reports she feels somewhat improved although continues to require high flow oxygen and also using BiPAP with pulmonary following. Chest x-ray this morning is suggestive of pulmonary edema and pleural fluid which is the same or slightly worse than previous could be CHF and was given doses of Lasix with improvement. Patient being started on IV Lasix twice daily with nephrology following closely. Hemoglobin is stable at 7.7 and white count is 8.6, blast cells are 6 and oncology following and has underwent bone marrow biopsy which is pending. Kidney functions are stable in magnesium found to be 1.6 and will replace per protocol. Patient continues on TPN and continues to have multiple electrolyte abnormalities at times. Patient also extremely hyperglycemic and will attempt increasing the long-acting with increasing the pre-meal as well as continuing sliding scale and may require an insulin drip. Patient is also continued on IV antibiotics with infectious disease following closely and per medical record patient has been refusing aztreonam and unsure why. Recommend wean FiO2 as tolerated and encouraged increase activity as tolerated 02/05/2023 Patient is seen and evaluated in follow-up this morning currently sitting up at the side of the bed continues to report shortness of breath although feels is improved. Patient is using BiPAP on occasion and currently maintained on 15 L high flow. Patient is maintained on IV Lasix with nephrology following closely. Multiple medical consultations following including general surgery recommending to continue TPN for abdominal pain and poor oral intake. Would recommend decreasing the rate and amount of fluid from TPN and have discussed this with pharmacy along with dietary adjustments are being made. Patient's blood sugars are elevated although more controlled on current regimen and will continue. Hemoglobin found to be 6.9 this morning and will give a unit of PRBC and recommend follow-up labs. Patient is receiving DuoNeb treatments and would recommend follow-up chest x-ray in the a.m. Overall prognosis remains guarded. 02/06/2023 Patient is seen in follow-up today continued on BiPAP currently had increased respiratory distress requiring an a team last night and maintained on BiPAP and refusing to take it off she is having increasing shortness of breath. Patient is now continued on IV Lasix and TPN being discontinued. Patient is refusing all medications at this time and discuss with nursing staff about encouraging oral intake. Was notified from pharmacy they are out of TPN and okay to discontinue per surgery. Blood sugars improved although patient is not eating and will continue to monitor closely. Patient hemoglobin above 7 and WBC is patient is continued on antibiotics with ID following and has also been started on vancomycin in addition. Pro-calcitonin is elevated. Overall prognosis remains extremely guarded. 02/07/2023 Patient is seen in follow-up this morning currently on the stepdown unit with multiple medical consultations following with plans for transferring to ICU as respiratory status has declined once again and now maintained on continuous BiPA P with an 80% FiO2. Patient has been refusing to remove the BiPAP for any eating or medication and discussed with nursing staff the importance of medication administration as well as the patient. Oral intake remains poor and patient is lethargic. Patient's blood sugars have now been on the lower side as patient is not eating and will add just sliding scale and discontinue the long- acting had prerenal insulins for now. Recommend continue monitoring Accu-Cheks closely for any signs of hypoglycemia as well. Chest x-ray continues to show some overload versus possible pneumonia patient is maintained on IV aztreonam as well as vancomycin with infectious disease following closely. Overall prognosis remains extremely guarded at this time. Will follow-up with repeat labs in a.m. and monitor the patient closely in the ICU. 02/08/2023 Patient is seen in follow-up today has been moved to the ICU for close monitoring as patient's respiratory status has declined. Patient is on BiPAP continuous with an FiO2 of 80% and PEEP is 5. Patient is maintained on antibiotics with multiple medical consultations following in the form of aztreonam and vancomycin while awaiting repeat cultures. Patient did have multiple episodes of loose stools overnight and currently awaiting a C. diff sample. Patient noted to have decreased urine output with indwelling Fermin catheter placed with nephrology following slight bump in kidney functions and is being placed on IV Lasix drip at 10 mL's per hour. Will follow-up with repeat labs. Chest x-ray today shows bibasilar infiltrates with small pleural e ffusions correlate for CHF and pulmonary edema.. hemoglobin is stable above 7.5 with no active bleeding noted and will follow closely and transfuse of 7 or less. Blood sugars slightly improved and will continue on just sliding scale. A was on long-acting although not eating and having close to episodes of hypoglycemia. Patient encouraged oral intake and medication administration. Patient not tolerating taking the BiPAP mask off very well and desats quickly. Patient is currently 92-93% oxygen saturation with an FiO2 of 80% on the BiPAP. 02/09/2023 Patient is seen this morning in the ICU 100% BiPAP. Patient desats quickly although is able to take it off for brief periods of sips and medications. Patient with not much of an appetite and encouraged oral intake. Patient being followed by multiple medical consultations including nephrology and was on Lasix drip although having decreased urine output and worsening kidney functions now having vascular surgery consultation for hemodialysis. Patient is maintained on antibiotics with infectious disease following and awaiting repeat cultures. Aztreonam being discontinued and patient being started on meropenem with continued vancomycin. Monitor vancomycin trough levels closely with concerns of worsening kidney functions. Discussed CODE STATUS once again with the patient and wishes to remain full code at this time and patient is high risk for possible mechanical ventilation. 02/10/2023 Patient is seen and evaluated in the ICU with multiple medical consultations following. Patient's respiratory status deteriorated and maintained on BiPAP which has been titrated down to an FiO2 of 80% from 100% yesterday. Patient co ntinues to be short of breath with very minimal exertion has not been out of bed. Per nursing staff patient is attempting oral intake and is drinking but desats very quickly once of the BiPAP mask. 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 Plan for family meeting in the a.m. Chest x-ray continues to show consistency with pneumonia patient is maintained on antibiotics with infectious disease following closely. Hemoglobin is stable at 7.1 and will transfuse loss. Patient is currently afebrile and denies chest pain or palpitations. Patient did have a brief period of chest pain yesterday with troponin slightly elevated. Overall prognosis is poor and guarded and will follow-up after family meeting. Patient has been started on dialysis and will continue with another treatment tomorrow nephrology following closely. 02/11/2023 Patient is seen and evaluated in follow-up continues on BiPAP and FiO2 has been titrated down currently at 75% with a PEEP of 5. Patient is resting although arousable. Patient is receiving hemodialysis and again scheduled for today. Oncology waiting to discuss further with family and patient at the bedside about overall prognosis and bone marrow biopsy findings and no family available today. Nursing staff working on contacting family. Patient is currently afebrile off pressor support and using midodrine as needed. Patient denies chest pain or palpitations. Patient continues to have poor oral intake with not much of an appetite and desats quickly of the BiPAP. Encouraged oral intake. Review of systems: Constitutional: reports of fatigue, reports not feeling well Cardiovascular: No reports of chest pain or palpitations Respiratory: reports of worsening shortness of breath GI: No reports of nausea, vomiting, or diarrhea, reports decreased abdominal pain with no real appetite : No reports of dysuria or retention, reports decreased urine output Neurovascular: reports of generalized weakness All medications have been reviewed Active Medications Acetaminophen (Acetaminophen Tab 325 Mg Tab) 650 mg PO Q6HR PRN PRN Reason: Fever and/ or Mild Pain Last Admin: 02/05/23 03:44 Dose: 650 mg Hydrocodone Bitart/Acetaminophen (Hydrocodone/Apap 5-325mg 1 Each Tab) 1 each PO Q6HR PRN PRN Reason: Pain Last Admin: 02/11/23 20:57 Dose: 1 each Albuterol/Ipratropium (Ipratropium-Albuterol 3 Ml Neb) 3 ml INHALATION RT-QID ALIYAH Last Admin: 02/11/23 19:34 Dose: 3 ml Albuterol/Ipratropium (Ipratropium-Albuterol 3 Ml Neb) 3 ml INHALATION RT-Q2H PRN PRN Reason: Shortness Of Breath Or Wheezing Last Admin: 02/09/23 04:09 Dose: 3 ml Atorvastatin Calcium (Atorvastatin 40 Mg Tab) 40 mg PO HS [facility] Last Admin: 02/11/23 20:56 Dose: 40 mg Baclofen (Baclofen 10 Mg Tab) 10 mg PO HS ALIYAH Last Admin: 02/11/23 20:57 Dose: 10 mg Budesonide (Budesonide 1 Mg/2 Ml Nebu) 1 mg INHALATION RT-BID ALIYAH Last Admin: 02/11/23 19:34 Dose: 1 mg Dextrose/Water (Dextrose 50% Syringe 50 Ml) 25 ml IVP PER PROTOCOL PRN; Protocol PRN Reason: Hypoglycemia Last Admin: 02/07/23 14:12 Dose: 25 ml Dextrose/Water (Dextrose 50% Syringe 50 Ml) 50 ml IVP PER PROTOCOL PRN; Protocol PRN Reason: Hypoglycemia Ferrous Sulfate (Ferrous Sulfate 325 Mg Tab) 325 mg PO BID-W/MEALS [facility] Last Admin: 02/11/23 16:43 Dose: 325 mg Fluticasone Propionate (Fluticasone 50mcg/[place] Nasal 16gm) 2 spray EA NOSTRIL DAILY PRN PRN Reason: allergies Last Admin: 01/28/23 16:26 Dose: 2 spray Formoterol Fumarate (Formoterol Fumarate 20 Mcg/2 Ml Nebu) 20 mcg INHALATION RT-BID ALIYAH Last Admin: 02/11/23 19:34 Dose: 20 mcg Heparin Sodium (Porcine) (Heparin Sodium,Porcine/Pf 5,000 Unit/0.5 Ml Syringe) 5,000 unit SQ Q12HR ALIYAH Last Admin: 02/11/23 20:56 Dose: 5,000 unit Hydromorphone HCl (Hydromorphone 1 Mg/Ml 1 Ml Syringe) 1 mg IVP Q3H PRN PRN Reason: Moderate to Severe Pain (4-10) Last Admin: 02/09/23 09:31 Dose: 1 mg Lactated Ringer's (Lactated Ringers) 1,000 mls @ 20 mls/hr IV .Q24H ALIYAH Last Admin: 02/11/23 20:21 Dose: Not Given Norepinephrine Bitartrate 8 mg (/ Sodium Chloride) 258 mls @ 4.977 mls/hr IV .Q24H ALIYAH; Protocol Last Admin: 02/11/23 13:28 Dose: Not Given Meropenem 1 gm/ Sodium (Chloride) 100 mls @ 33.3 mls/hr IVPB Q12HR ALIYAH; Protocol Last Admin: 02/11/23 20:56 Dose: 33.3 mls/hr Insulin Aspart (Insulin Aspart (Novolog) 100 Unit/Ml Vial) 0 unit SQ ACHS [facility]; Protocol Last Admin: 02/11/23 20:57 Dose: 2 unit Lidocaine HCl (Lidocaine 1% (10mg/Ml) For Iv Start) 0.1 ml INTRADERMA PER PROTOCOL PRN PRN Reason: IV Start Metolazone (Metolazone 5 Mg Tab) 5 mg PO DAILY [facility] Last Admin: 02/11/23 16:43 Dose: 5 mg Metoprolol Tartrate (Metoprolol Tartrate 25 Mg Tab) 25 mg PO BID [facility] Last Admin: 02/11/23 20:57 Dose: 25 mg Midodrine (Midodrine 5 Mg Tab) 10 mg PO AC-TID [facility] Last Admin: 02/11/23 18:27 Dose: 10 mg Miscellaneous Information (Potassium Replacement Protocol 1 Each Misc) 1 each MISCELLANE DAILY PRN; Protocol PRN Reason: Per Protocol Miscellaneous Information (Magnesium Replacement Protocol 1 Each Misc) 1 each MISCELLANE DAILY PRN; Protocol PRN Reason: Per Protocol Naloxone HCl (Naloxone 0.4 Mg/Ml 1 Ml Vial) 0.2 mg IV Q2M PRN PRN Reason: Opioid Reversal Ondansetron HCl (Ondansetron 4 Mg/2 Ml Vial) 4 mg IVP Q6HR PRN PRN Reason: Nausea And Vomiting Last Admin: 01/30/23 19:49 Dose: 4 mg Pantoprazole Sodium (Pantoprazole 40 Mg/10 Ml Vial) 40 mg IVP BID [facility] Last Admin: 02/11/23 20:57 Dose: 40 mg Promethazine HCl (Promethazine 25 Mg Tab) 25 mg PO Q6HR PRN PRN Reason: Nausea Last Admin: 01/27/23 13:51 Dose: 25 mg Sertraline HCl (Sertraline 50 Mg Tab) 50 mg PO DAILY [facility] Last Admin: 02/11/23 16:44 Dose: 50 mg Simethicone (Simethicone 80 Mg Chewable) 80 mg PO QID [facility] Last Admin: 02/11/23 22:01 Dose: Not Given Physical exam: GENERAL: The patient is alert and oriented x3, asleep but easily arousable. Well developed, well nourished. Obese, elderly and ill-appearing, now maintained on BiPAP continuous, FiO2 is 75 % with a PEEP of 5 HEENT: Pupils are round and equally reacting to light. EOMI. No scleral icterus. No conjunctival pallor. Normocephalic, atraumatic. No pharyngeal erythema. No thyromegaly. CARDIOVASCULAR: S1 and S2 muffled PULMONARY: Diminished breath sounds bilaterally with some scattered rhonchi and crackles noted ABDOMEN: Soft, obese, nontender, some bloating, nondistended, normoactive bowel sounds. No palpable organomegaly. MUSCULOSKELETAL: No joint swelling or deformity. EXTREMITIES: No cyanosis, clubbing, or pedal edema. NEUROLOGICAL: Gross neurological examination did not reveal any focal deficits. Diffusely weak SKIN: No rashes. no petechiae. 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 Atrial Fibrillation, on Eliquis (ON HOLD) status post Permanent Pacemaker history of anterior abdominal wall fluid collection could be related to seroma Coronary Artery Disease history, status post stent Obesity with BMI of 30.5 COPD, not in exacerbation CVA/TIA history with left foot drop Diabetes Mellitus, uncontrolled with hyperglycemia GERD/Reflux Hyperlipidemia Hypertension Sleep Apnea/CPAP/BIPAP Diabetic neuropathy bilateral legs/feet History of colon cancer with revision/colostomy since reversed and chemo/radiation History of PVD Full code Plan: Patient has been transferred to the ICU with close monitoring and remaining on continuous BiPAP with an FiO2 of 75% and PEEP is 5. Recommend continue with IV antibiotics with infectious disease following. Blood cultures thus far remain negative and sputum culture was sent and pending. WBC has improved and patient is afebrile Indwelling Fermin catheter with decreased urine output and nephrology following and has received a temporary dialysis catheter and is scheduled to receive dialysis again today and possibly tomorrow Oncology following patient underwent bone marrow biopsy on 02/03/2023, results confirmed AML and awaiting to have a family meeting to discuss diagnosis and options Recommend follow-up labs in a.m. Due to multiple complex medical issues, prognosis is extremely poor and guarded The impression and plan of care has been dictated by Mindy Saleh, Nurse Practitioner as directed. Dr. Celso MD I have performed a history and examination and MDM of this patient, discussed the same with the dictator, and agree with the dictator's assessment and plan as written ,documented as a scribe. Based on total visit time, I have performed more than 50% of the visit. Objective - Vital Signs Vital signs: Vital Signs Temp 96.8 F L 02/12/23 04:00 Pulse 85 02/12/23 05:00 Resp 23 02/12/23 05:00 BP 115/57 02/12/23 05:00 Pulse Ox 93 L 02/12/23 05:00 FiO2 75 02/12/23 04:00 Intake & Output 02/11/23 02/11/23 02/12/23 06:59 18:59 06:59 Intake Total 220 420 210 Output Total 55 2348 43 Balance 165 -1928 167 Weight 85.729 kg Intake: IV 220 120 210 0.9% @ KVO 120 120 110 Meropenem 1 gm In Sodium 100 100 Chloride 0.9% 100 ml @ 33 .3 mls/hr IVPB Q12HR [facility] Rx#:[id number] Hemodialysis 300 Output: Urine 55 52 43 Hemodialysis 2296 Other: Voiding Method Indwelling Catheter Indwelling Catheter Indwelling Catheter - Labs CBC & Chem 7: 02/11/23 07:37 02/11/23 05:56 Labs: Abnormal Lab Results - Last 24 Hours (Table) 02/11/23 02/11/23 02/11/23 Range/Units 05:56 06:40 07:37 WBC 12.4 H (3.8-10.6) k/uL RBC 2.94 L (3.80-5.40) m/uL Hgb 7.4 L (11.4-16.0) gm/dL Hct 23.5 L (34.0-46.0) % MCV 79.9 L (80.0-100.0) fL RDW 23.8 H (11.5-15.5) % Plt Count 51 L (150-450) k/uL Blast Cells % 5 H* % Neutrophils # (Manual) 8.30 H (1.3-7.7) k/uL Monocytes # (Manual) 1.24 H (0-1.0) k/uL Metamyelocytes # (Man) 0.25 H (0) k/uL Myelocytes # (Manual) 0.25 H (0) k/uL Blast Cells # (Man) 0.62 H (0) k/uL Carbon Dioxide 21 L (22-30) mmol/L BUN 71 H (7-17) mg/dL Creatinine 1.72 H (0.52-1.04) mg/dL Glucose 142 H (74-99) mg/dL POC Glucose (mg/dL) 156 H (70-110) mg/dL Calcium 7.3 L (8.4-10.2) mg/dL 02/11/23 02/11/23 02/11/23 Range/Units 11:45 16:24 20:48 WBC (3.8-10.6) k/uL RBC (3.80-5.40) m/uL Hgb (11.4-16.0) gm/dL Hct (34.0-46.0) % MCV (80.0-100.0) fL RDW (11.5-15.5) % Plt Count (150-450) k/uL Blast Cells % % Neutrophils # (Manual) (1.3-7.7) k/uL Monocytes # (Manual) (0-1.0) k/uL Metamyelocytes # (Man) (0) k/uL Myelocytes # (Manual) (0) k/uL Blast Cells # (Man) (0) k/uL Carbon Dioxide (22-30) mmol/L BUN (7-17) mg/dL Creatinine (0.52-1.04) mg/dL Glucose (74-99) mg/dL POC Glucose (mg/dL) 232 H 126 H 175 H (70-110) mg/dL Calcium (8.4-10.2) mg/dL Microbiology - Last 24 Hours (Table) 02/09/23 10:00 Gram Stain - Final Sputum Sputum Culture - Final Bridgette albicans
[2023-02-12 06:24] LABS: Anisocytosis Moderate; HCT 23.6 % (34.0-46.0); HGB 7.4 gm/dL (11.4-16.0); Hypochromasia Slight; MCH 25.2 pg (25.0-35.0); MCHC 31.3 g/dL (31.0-37.0); MCV 80.4 fL (80.0-100.0); Mean Platelet Volume 9.6; Microcytosis Moderate; Poikilocytosis Slight; RBC 2.93 m/uL (3.80-5.40); RDW 23.6 % (11.5-15.5)
[2023-02-12 06:29] LABS: Platelet Count 54 k/uL (150-450)
[2023-02-12 06:54] LABS: Glucose,Whole Blood 184 mg/dL (70-110)
[2023-02-12] MEDS: MIDODRINE 5 MG TAB PO SCH ×2 (07:00→13:16)
[2023-02-12] MEDS: INSULIN ASPART (NovoLOG) 100 UNIT/ML VIAL SQ SCH ×2 (07:01→13:15)
[2023-02-12] MEDS: FERROUS SULFATE 325 MG TAB PO SCH (07:01)
[2023-02-12 07:05] LABS: Calcium 7.2 mg/dL (8.4-10.2); Potassium 4.2 mmol/L (3.5-5.1)
--- NOTE | 2023-02-12 08:03 | XR ---
EXAMINATION TYPE: XR chest 1V DATE OF EXAM: 02/12/2023 COMPARISON: 02/11/2023 INDICATION: Dyspnea TECHNIQUE: Single frontal view of the chest is obtained. FINDINGS: The heart size is normal. The pulmonary vasculature is normal. Patchy infiltrates are present bilaterally greater on the right. Findings may be worsening. IMPRESSION: 1. Diffuse increased lung markings bilaterally greater on the right appear similar to comparison. Con tinued follow-up is recommended
[2023-02-12] MEDS: MEROPENEM 1 GM in SODIUM CHLORIDE 0.9% 100 ML IVPB SCH (08:06)
[2023-02-12] MEDS: BUDESONIDE 1 MG/2 ML NEBU INHALATION SCH (08:06)
[2023-02-12] MEDS: SIMETHICONE 80 MG CHEWABLE PO SCH ×2 (08:07→13:16)
[2023-02-12] MEDS: SERTRALINE 50 MG TAB PO SCH (08:07)
[2023-02-12] MEDS: metOLazone 5 MG TAB PO SCH (08:07)
[2023-02-12] MEDS: FORMOTEROL FUMARATE 20 MCG/2 ML NEBU INHALATION SCH (08:07)
[2023-02-12] MEDS: IPRATROPIUM-ALBUTEROL 3 ML NEB INHALATION SCH ×3 (08:07→15:23)
[2023-02-12] MEDS: HEPARIN SODIUM,PORCINE/PF 5,000 UNIT/0.5 ML SYRINGE SQ SCH (08:07)
[2023-02-12] MEDS: PANTOPRAZOLE 40 MG/10 ML VIAL IVP SCH (08:07)
[2023-02-12] MEDS: METOPROLOL TARTRATE 25 MG TAB PO SCH (08:07)
[2023-02-12 08:25] LABS: Glucose,Whole Blood 179 mg/dL (70-110)
--- NOTE | 2023-02-12 08:56 | P.PN ---
Subjective Progress Note Date: 02/12/23 On today's evaluation of 02/09/2023, the patient is being seen for a follow-up. She is in obvious respiratory failure and the patient is currently on a BiPAP at a pressure of 12/7 cm of water with FiO2 of 100%. Pulse ox is in the order of 93-94%. She is very much dependent on the BiPAP and unable to come off the BiPAP because of significant desaturations. Generator tidal volume on the BiPAP machine is in the order of 800 mL with a respiratory rate of 25. Blood gases has not been done. Echocardiogram has not been repeated. The last blood gas that we have on this patient is from 02/08/2023 that showed impaired oxygenation with a PE or 2 of 79. Meanwhile, the most recent chest x-ray from today shows diffuse bilateral pulmonary infiltrates and there is no obvious area of consolidation in the right upper lobe. Nevertheless, the infiltrates are rather diffuse. Noted the patient had a mildly elevated pro-calcitonin level of 0.32 at the time of admission and her pro-calcitonin gradually went up to 4.07. At the same time, the patient developed an acute kidney injury. Creatinine today is up to 1.7 and she is not producing any urine output. Nephrology has been involved and the patient is being prepared to undergo hemodialysis after insertion of a hemodialysis catheter. She is on a Lasix drip running at 10 mg an hour without any success in improving the urine output. She is also on Zaroxolyn at a dose of 5 mg by mouth G today. Cardiac rhythm is sinus. Note that she has undergone a previous percutaneous transaortic aortic valve replacement and this was done in 2021. His sodium level is at 136 with a potassium level of 4.2. Serum bicarb is at 10. BMs at 75 with a creatinine of 1.7. The white cell count today's of 8.9 with a hemoglobin of 7.9. Platelet count has dropped onto 55. She is covered with antibiotics. She is on a combination of vancomycin and the trough being at around 40 and she is also on aztreonam. No cultures are available. On today's evaluation of 02/10/2023, the patient is being seen for a follow-up. She remains in hypoxic respiratory failure BiPAP dependent at pressure of 12/7 cm of water with an FiO2 of 90%. Chest x-ray is essentially unchanged. There is diffuse but the pulmonary infiltrates and increased consolidation of the right upper lobe. Antibiotics were modified and the patient and the patient was started on IV meropenem yesterday. Breathing is labored. She is tachypneic. Generating tidal volume in the order of 600 mL and the patient's minute ventilation is around 15 L/m. Very much BiPAP dependent, unable to come off the BiPAP because of respiratory compromise. At the same time, an echocardiogram was completed yesterday and the patient has a preserved LV function with an ejection fraction of 65%. Nevertheless, the patient had significant degree of aortic valve disease. The patient moderate to severe aortic stenosis and the possibility of a left ventricular outflow tract obstruction cannot be completely excluded. The patient also had [id number] mitral stenosis, moderate severe mitral annular calcification. There was moderate right-sided hypertrophy and right ventricular dysfunction. Right ventricular systolic pressure was estimated to be 61 mmHg. Noted the patient was started on hemodialysis yesterday. A dialysis catheter was inserted in her right femoral artery. She was given a first session of hemodialysis yesterday and the patient had ultrafiltration of 2 L.. Urine output remains extremely low. Lasix drip has been discontinued and the patient remains on Zaroxolyn. Urine output has been only in the order of 10 mL over the past 8 hours. She is afebrile. She is hemodynamically stable on no pressors. The white cycles of 9.6 with a hemoglobin of 7.1. Platelet counts are still pending for now. Meanwhile, the bone marrow biopsy that was done earlier was quite abnormal. The patient has around 10% of blasts within the bone marrow consistent with high degree malignant myeloid neoplasm, with the possibility of a evolving acute leukemia. The patient had sputum cultures sent yesterday and that is also still pending for now. No other positive cultures thus far. Vancomycin level random from 02/09/2023 is 33. On today's evaluation of 02/11/2023, the patient is being seen for a follow-up. She is still essentially BiPAP dependent. Unable to wean her off the BiPAP shayna ent remains on a pressure of 12/7 cm of water with FiO2 of 75%. I do appreciate some improvement in his chest x-ray findings/in the right upper lobe of the consolidation is less dense and there is improved aeration the upper lobes bilaterally. The FiO2 has been weaned down to 75%. She is breathing adequately on the BiPAP and she seems to be less labored compared to yesterday. She is able to generator tidal volume of above 600. Her minute ventilation is around 14-15 L. Her pulse ox is currently at 92%. She underwent hemodialysis yesterday with a total of 3 L of ultrafiltration. As such, the patient is in a negative fluid balance. She is known to have aortic valve disease and she has undergone previous TaVR and repeat echocardiogram showed the possibility of a left ocular outflow obstruction. She has a preserved ejection fraction. 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 Hematology oncology is on the case. Unfortunately, with her ongoing issues, no treatment will be offered other than supportive treatment in regards to her acute leukemia. Her blasts of elevated for now and she cannot handle any, systemic chemotherapy. Hematologic profile is obviously abnormal along with AML. There is hemoglobin is at 7.4 with a platelet count of 51 and a white cell count of 12.4. Rest of the electrodes are all stable. BUN is at 71 with a creatinine of 1.7. The patient is hemodynamically stable. The patient i s on no pressors. The patient is in normal sinus rhythm. Antibiotic coverage included a combination of meropenem and vancomycin. Noted the vancomycin trough is being monitored. She was toxic on her level and a most recent level from 02/09/2023 was at 33. The most recent pro-calcitonin level from 02/09/2020 was elevated at 4.07. On today's evaluation of 02/12/2023, the patient continues to have labored breathing and she is BiPAP dependent at pressure of 12/7. FiO2 has been dropped onto 75% and she is undergoing continuous BiPAP therapy as the patient is unable to come off the BiPAP because of respiratory distress and desaturations. I reviewed the follow-up chest x-ray from today. Comparing the x-ray from earlier films done few days back, there may be some slow and ongoing improvement. However, there is still diffuse pulmonary infiltrates and lung markings bilaterally right more than left. She remains on broad-spectrum antibiotics. He is currently on IV meropenem and vancomycin. The most recent vancomycin level from 02/09/2023 was 33. A repeat random vancomycin level will be obtained. Meanwhile, the patient is undergoing hemodialysis on a daily basis. She had a total of 3 L of ultrafiltration yesterday and she tolerated dialysis fairly well. Afebrile. Hemodynamically stable. Normal sinus rhythm. Hematologic profile shows a hemoglobin of 7.4 which is stable, and platelet count of 54 which is stable and the white cell count of 16.4. Rest of electrolytes are all stable and within normal limits. The sputum showed Bridgette albicans. As mentioned earlier, the patient is a case of acute myelogenous leukemia. This was discussed with hematology oncology. Obviously, she is on a candidate for any treatment at this point in time. Diagnosis was explained also that the patient and to the son. I think there understanding of the situation is quite limited and acceptance of the poor prognosis is not great. Or now, the patient is being supported upon the patient and the family's wishes. I think the patient is a very poor prognosis especially with an underlying acute myelogenous leukemia and the various comorbidities as mentioned above. Urine output is minimal at this point in time. Rest of respiratory medications are unchanged. Her oral intake is limited, as the patient is BiPAP dependent. Objective - Vital Signs Vital signs: Vital Signs Temp 98.3 F 02/12/23 08:00 Pulse 112 H 02/12/23 08:41 Resp 28 H 02/12/23 08:00 BP 138/57 02/12/23 08:00 Pulse Ox 93 L 02/12/23 08:00 FiO2 75 02/12/23 08:10 Intake & Output 02/11/23 02/12/23 02/12/23 18:59 06:59 18:59 Intake Total 420 220 20 Output Total 2348 78 3 Balance -1928 142 17 Weight 85.729 kg Intake: IV 120 220 20 0.9% @ KVO 120 120 20 Meropenem 1 gm In Sodium 100 Chloride 0.9% 100 ml @ 33 .3 mls/hr IVPB Q12HR [facility] Rx#:[id number] Hemodialysis 300 Output: Urine 52 78 3 Hemodialysis 2296 Other: Voiding Method Indwelling Catheter Indwelling Catheter Indwelling Catheter - Exam No acute distress, oriented 3. Currently on BiPAP. The patient is current on a pressures of 12/7 cm of water FiO2 75%. She is lethargic. She is weak. She is bedbound. She is tolerating full face BiPAP mask for now. Pulse ox is currently in the order of 93-94%. The breathing is labored. The patient remains tachypneic. She generating adequate tidal volumes. She has a higher minute ventilation. Head exam was generally normal. There was no scleral icterus or corneal arcus. Mucous membranes were moist. HEENT examination is grossly unremarkable. Neck supple. Full range of motion. No adenopathy thyromegaly or neck vein distention. Cardiovascular examination reveals regular rhythm rate. S1-S2 normal. No S3 or S4. Systolic ejection murmur grade 3/6 over the left lateral sternal border and apex. Heart sounds are distant. Lungs reveal scattered bilateral rhonchi, and crackles. Breath sounds equal. No wheezes. Diminished breath on the lung bases bilaterally. Is TO THE LUNG CARRANZA BILATERALLY. AAbdominal exam revealed normal bowel sounds. The abdomen was soft, non-tender, and without masses, organomegaly, or appreciable enlargement of the abdominal aorta. Extremities are intact. No cyanosis or clubbing. Mild edema noted. Skin is without rash or lesion. Neurologic examination is brief but nonfocal. The patient is alert and awake. She is communicating. She follows simple commands. Unable to have full conversation with her regarding her prognosis as the patient is on a BiPAP and the patient's has poor understanding of her situation. - Labs CBC & Chem 7: 02/12/23 05:36 02/12/23 05:36 Labs: Abnormal Lab Results - Last 24 Hours (Table) 02/11/23 02/11/23 02/11/23 Range/Units 07:37 11:45 16:24 WBC (3.8-10.6) k/uL RBC (3.80-5.40) m/uL Hgb (11.4-16.0) gm/dL Hct (34.0-46.0) % RDW (11.5-15.5) % Plt Count (150-450) k/uL Blast Cells % 5 H* % Neutrophils # (1.3-7.7) k/uL Neutrophils # (Manual) 8.30 H (1.3-7.7) k/uL Monocytes # (0-1.0) k/uL Monocytes # (Manual) 1.24 H (0-1.0) k/uL Metamyelocytes # (Man) 0.25 H (0) k/uL Myelocytes # (Manual) 0.25 H (0) k/uL Blast Cells # (Man) 0.62 H (0) k/uL Sodium (137-145) mmol/L BUN (7-17) mg/dL Creatinine (0.52-1.04) mg/dL Glucose (74-99) mg/dL POC Glucose (mg/dL) 232 H 126 H (70-110) mg/dL Calcium (8.4-10.2) mg/dL 02/11/23 02/12/23 02/12/23 Range/Units 20:48 05:36 05:36 WBC 16.4 H (3.8-10.6) k/uL RBC 2.93 L (3.80-5.40) m/uL Hgb 7.4 L (11.4-16.0) gm/dL Hct 23.6 L (34.0-46.0) % RDW 23.6 H (11.5-15.5) % Plt Count 54 L (150-450) k/uL Blast Cells % % Neutrophils # 11.8 H (1.3-7.7) k/uL Neutrophils # (Manual) (1.3-7.7) k/uL Monocytes # 1.3 H (0-1.0) k/uL Monocytes # (Manual) (0-1.0) k/uL Metamyelocytes # (Man) (0) k/uL Myelocytes # (Manual) (0) k/uL Blast Cells # (Man) (0) k/uL Sodium 135 L (137-145) mmol/L BUN 58 H (7-17) mg/dL Creatinine 1.53 H (0.52-1.04) mg/dL Glucose 176 H (74-99) mg/dL POC Glucose (mg/dL) 175 H (70-110) mg/dL Calcium 7.2 L (8.4-10.2) mg/dL 02/12/23 02/12/23 Range/Units 06:52 08:23 WBC (3.8-10.6) k/uL RBC (3.80-5.40) m/uL Hgb (11.4-16.0) gm/dL Hct (34.0-46.0) % RDW (11.5-15.5) % Plt Count (150-450) k/uL Blast Cells % % Neutrophils # (1.3-7.7) k/uL Neutrophils # (Manual) (1.3-7.7) k/uL Monocytes # (0-1.0) k/uL Monocytes # (Manual) (0-1.0) k/uL Metamyelocytes # (Man) (0) k/uL Myelocytes # (Manual) (0) k/uL Blast Cells # (Man) (0) k/uL Sodium (137-145) mmol/L BUN (7-17) mg/dL Creatinine (0.52-1.04) mg/dL Glucose (74-99) mg/dL POC Glucose (mg/dL) 184 H 179 H (70-110) mg/dL Calcium (8.4-10.2) mg/dL Microbiology - Last 24 Hours (Table) 02/09/23 10:00 Gram Stain - Final Sputum Sputum Culture - Final Bridgette albicans Assessment and Plan Plan: Acute hypoxemic respiratory failure, with progressive shortness of breath, and worsening saturations, likely multifactorial, in part related to fluid overload, as well as possible pneumonia, left midlung and left perihilar region. There is extensive consolidation of the right upper lobe. The patient remains BiPAP dependent. Limited improvements despite being on antibiotics and dialysis. Reviewing the chest x-rays over the past 1 week, would say there is some progress. Not enough to the point where the patient can come off the BiPAP. Restrictive BiPAP dependent. She still the same antibiotic coverage equals minimum vancomycin. Vancomycin levels are being monitored. I will suggest continuing the vancomycin for now in combination with Merrem and undergoing daily hemodialysis. There is a possibility that the chest x-ray findings are a combination of interstitial edema/fluid in combination with pneumonia and I'm anticipating some improvement with above-mentioned treatment. She remains a full code. Family has poor understanding of her situation. Poor prognosis explained with a poor acceptance. Dyspnea secondary to above, still BiPAP dependent GI bleeding currently inactive and stable. Note that the Initial admission to hospital for GI bleeding, with negative colonoscopy. 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 Moderate to severe aortic valve stenosis with a possibility of a left ventricular outflow obstruction and moderate degree of mitral regurgitation with calcifications. History of atrial fibrillation. The current cardiac rhythm is sinus History of CAD. History of CVA. History of COPD, secondary to ongoing tobacco use with nicotine addiction. Diabetes mellitus 2 currently on sliding scale coverage GERD. Hyperlipidemia. History of hypertension. History of obstructive sleep apnea syndrome. History of cervical cancer. Acute kidney injury, failed diuretics and the patient is currently undergoing hemodialysis. Since session of hemodialysis was done yesterday Acute myeloid leukemia, please refer to the results of the bone marrow biopsy Acute thrombocytopenia secondary to above Anemia, normocytic, secondary to above as the patient is a component of acute myeloid leukemia and hemoglobin is at 7.4 Plan: We are dealing with a very complicated case. The patient has acute hypoxic respiratory failure and she is BiPAP dependent. He does have underlying acute myelogenous leukemia. Continue BiPAP for now with a high risk of this patient requiring intubation mechanical ventilation. Subjective the patient is an underlying acute myelogenous leukemia put her in a very poor prognostic outcome/that she is not a candidate for any treatment at this point in time. We'll continue daily hemodialysis today with ultrafiltration as the patient is showing some limited response and her oxygenation and chest x-ray findings while being on hemodialysis and ultrafiltration. Continue same antibiotic coverage with meropenem and vancomycin. Repeat another vancomycin level, and if the levels are low, proceed with another dose Repeat echo was noted Monitor the platelet count and stop the subcu heparin once the platelet count of less than 50. She's not showing any signs of bleeding at this point in time. Bone marrow biopsies consistent with acute myelogenous leukemia, involving with increased blasts. We'll consult with hematology oncology this regard, obviously this case a very poor prognosis especially the patient is not a candidate for any further systemic treatment. Condition is obviously very critical We'll continue to follow Continue BiPAP support. No dental left to be offered at this point in time. The best circumstances, her respiratory status would improve with a combination of antibiotics and dialysis with ultrafiltration. Will monitor progress. Would like to talk to the patient and the family about CODE STATUS. I think hospice care should be reasonable for this patient pressure with the above- mentioned comorbidities. A phone call was made to the sun yesterday. Son is unable to come until Thursday due to work-related commitments. Insisted on full CODE STATUS. Critical care evaluation, > 30 min the cultures Time with Patient: Greater than 30
[2023-02-12 11:31] LABS: Glucose,Whole Blood 175 mg/dL (70-110)
--- NOTE | 2023-02-12 11:39 | P.PN ---
Subjective Patient is seen for follow-up for acute kidney injury and hyponatremia. Renal function had initially improved with correction of hyponatremia as well however, patient was transferred to ICU due to acute hypoxic respiratory failure secondary to volume overload and pneumonia needing BiPAP on 02/07/2023 She had been hypotensive and required pressors. Renal function subsequently deteriorated with severe oliguria necessitating initiation of renal replacement therapy. Started hemodialysis on 02/09/2023 Vancomycin was held, the level did come back elevated at 40.5 Patient had 2.3 L of ultrafiltration with hemodialysis yesterday. Patient is currently on BiPAP. She is awake appears to be more comfortable. FiO2 is slightly lower however patient continues to be significantly BiPAP dependent. Chest x-ray shows some improvement but bilateral interstitial infiltrates persist. Urine output remains minimal Objective - Vital Signs Vital signs: Vital Signs Temp 98.3 F 02/12/23 08:00 Pulse 95 02/12/23 11:00 Resp 35 H 02/12/23 11:00 BP 125/58 02/12/23 11:00 Pulse Ox 91 L 02/12/23 11:00 FiO2 75 02/12/23 08:10 Intake & Output 02/11/23 02/12/23 02/12/23 18:59 06:59 18:59 Intake Total 420 220 50 Output Total 2348 78 33 Balance -1928 142 17 Weight 85.729 kg Intake: IV 120 220 50 0.9% @ KVO 120 120 50 Meropenem 1 gm In Sodium 100 Chloride 0.9% 100 ml @ 33 .3 mls/hr IVPB Q12HR [facility] Rx#:[id number] Hemodialysis 300 Output: Urine 52 78 33 Hemodialysis 2296 Other: Voiding Method Indwelling Catheter Indwelling Catheter Indwelling Catheter - Exam Patient is awake, no acute distress Currently on BiPAP Alert oriented 3 Examination of the heart S1 and S2 Examination the lungs decreased breath sounds at the bases with basilar crackles heard Abdomen is soft obese Examination of lower extremity shows edema 1+ bilaterally PRE FABRICATOR exam grossly intact - Labs CBC & Chem 7: 02/12/23 05:36 02/12/23 05:36 Labs: Abnormal Lab Results - Last 24 Hours (Table) 02/11/23 02/11/23 02/11/23 Range/Units 11:45 16:24 20:48 WBC (3.8-10.6) k/uL RBC (3.80-5.40) m/uL Hgb (11.4-16.0) gm/dL Hct (34.0-46.0) % RDW (11.5-15.5) % Plt Count (150-450) k/uL Neutrophils # (1.3-7.7) k/uL Monocytes # (0-1.0) k/uL Sodium (137-145) mmol/L BUN (7-17) mg/dL Creatinine (0.52-1.04) mg/dL Glucose (74-99) mg/dL POC Glucose (mg/dL) 232 H 126 H 175 H (70-110) mg/dL Calcium (8.4-10.2) mg/dL 02/12/23 02/12/23 02/12/23 Range/Units 05:36 05:36 06:52 WBC 16.4 H (3.8-10.6) k/uL RBC 2.93 L (3.80-5.40) m/uL Hgb 7.4 L (11.4-16.0) gm/dL Hct 23.6 L (34.0-46.0) % RDW 23.6 H (11.5-15.5) % Plt Count 54 L (150-450) k/uL Neutrophils # 11.8 H (1.3-7.7) k/uL Monocytes # 1.3 H (0-1.0) k/uL Sodium 135 L (137-145) mmol/L BUN 58 H (7-17) mg/dL Creatinine 1.53 H (0.52-1.04) mg/dL Glucose 176 H (74-99) mg/dL POC Glucose (mg/dL) 184 H (70-110) mg/dL Calcium 7.2 L (8.4-10.2) mg/dL 02/12/23 02/12/23 Range/Units 08:23 11:29 WBC (3.8-10.6) k/uL RBC (3.80-5.40) m/uL Hgb (11.4-16.0) gm/dL Hct (34.0-46.0) % RDW (11.5-15.5) % Plt Count (150-450) k/uL Neutrophils # (1.3-7.7) k/uL Monocytes # (0-1.0) k/uL Sodium (137-145) mmol/L BUN (7-17) mg/dL Creatinine (0.52-1.04) mg/dL Glucose (74-99) mg/dL POC Glucose (mg/dL) 179 H 175 H (70-110) mg/dL Calcium (8.4-10.2) mg/dL Microbiology - Last 24 Hours (Table) 02/09/23 10:00 Gram Stain - Final Sputum Sputum Culture - Final Bridgette albicans Assessment and Plan Assessment: 1. Acute kidney injury initially prerenal secondary to acute blood loss anemia and hypotension. Renal function had improved with creatinine down to 0.8 mg/dL. Serum creatinine has increased again with poor urine output secondary to hypotension and vancomycin toxicity. UA benign. No hydronephrosis noted on imaging. no improvement in urine output with Lasix drip. Patient is started on hemodialysis on 02/09/2023. Maintained on daily ultrafiltration. 2. Acute GI bleed status post blood transfusion this admission. No active bleeding noted on colonoscopy. Hemoglobin 7.4 today. Hematology and surgery following. Underwent bone marrow aspiration this admission. Status post blood transfusions this admission. 3. Hyponatremia. Hypervolemic. Improved 4. Hypomagnesemia from GI losses and poor intake. Replaced. 5. Hypokalemia from poor intake and hypomagnesemia. Replaced. 6. Volume overload. No response to Lasix drip. Patient has been started on hemodialysis 7. Acute hypoxic respiratory failure maintained on BiPAP Plan: Continue with daily dialysis treatments and ultrafiltration. Increase UF to 3-4 L as tolerated Continue with midodrine
--- NOTE | 2023-02-12 12:56 | P.PN ---
Subjective Progress Note Date: 02/12/23 Principal diagnosis: anemia/elevated blast cells Upon visit today patient is resting in bed. She reports breathing has worsened today. Breathing is labored. She is still on BiPAP. Pt denies pain. No other reported complaints. Objective - Vital Signs Vital signs: Vital Signs Temp 98.3 F 02/12/23 08:00 Pulse 107 H 02/12/23 12:00 Resp 42 H 02/12/23 12:00 BP 121/51 02/12/23 12:00 Pulse Ox 91 L 02/12/23 12:00 FiO2 75 02/12/23 12:00 Intake & Output 02/11/23 02/12/23 02/12/23 18:59 06:59 18:59 Intake Total 420 220 50 Output Total 2348 78 33 Balance -1928 142 17 Weight 85.729 kg Intake: IV 120 220 50 0.9% @ KVO 120 120 50 Meropenem 1 gm In Sodium 100 Chloride 0.9% 100 ml @ 33 .3 mls/hr IVPB Q12HR [facility] Rx#:[id number] Hemodialysis 300 Output: Urine 52 78 33 Hemodialysis 2296 Other: Voiding Method Indwelling Catheter Indwelling Catheter Indwelling Catheter - Constitutional General appearance: Present: average body habitus, mild distress - EENT Eyes: Present: anicteric sclerae, EOMI ENT: Present: hearing grossly normal - Respiratory Details: breathing labored Respiratory: bilateral: CTA - Cardiovascular Rhythm: regular Heart sounds: normal: S1, S2 Abnormal Heart Sounds: Absent: systolic murmur, diastolic murmur, rub, S3 Gallop, S4 Gallop, click, other - Integumentary Integumentary: Present: pale - Musculoskeletal Musculoskeletal: Present: generalized weakness - Psychiatric Psychiatric: Present: A&O x's 3, appropriate affect - Labs CBC & Chem 7: 02/12/23 05:36 02/12/23 05:36 Labs: Abnormal Lab Results - Last 24 Hours (Table) 02/11/23 02/11/23 02/12/23 Range/Units 16:24 20:48 05:36 WBC 16.4 H (3.8-10.6) k/uL RBC 2.93 L (3.80-5.40) m/uL Hgb 7.4 L (11.4-16.0) gm/dL Hct 23.6 L (34.0-46.0) % RDW 23.6 H (11.5-15.5) % Plt Count 54 L (150-450) k/uL Neutrophils # 11.8 H (1.3-7.7) k/uL Monocytes # 1.3 H (0-1.0) k/uL Sodium (137-145) mmol/L BUN (7-17) mg/dL Creatinine (0.52-1.04) mg/dL Glucose (74-99) mg/dL POC Glucose (mg/dL) 126 H 175 H (70-110) mg/dL Calcium (8.4-10.2) mg/dL 02/12/23 02/12/23 02/12/23 Range/Units 05:36 06:52 08:23 WBC (3.8-10.6) k/uL RBC (3.80-5.40) m/uL Hgb (11.4-16.0) gm/dL Hct (34.0-46.0) % RDW (11.5-15.5) % Plt Count (150-450) k/uL Neutrophils # (1.3-7.7) k/uL Monocytes # (0-1.0) k/uL Sodium 135 L (137-145) mmol/L BUN 58 H (7-17) mg/dL Creatinine 1.53 H (0.52-1.04) mg/dL Glucose 176 H (74-99) mg/dL POC Glucose (mg/dL) 184 H 179 H (70-110) mg/dL Calcium 7.2 L (8.4-10.2) mg/dL 02/12/23 Range/Units 11:29 WBC (3.8-10.6) k/uL RBC (3.80-5.40) m/uL Hgb (11.4-16.0) gm/dL Hct (34.0-46.0) % RDW (11.5-15.5) % Plt Count (150-450) k/uL Neutrophils # (1.3-7.7) k/uL Monocytes # (0-1.0) k/uL Sodium (137-145) mmol/L BUN (7-17) mg/dL Creatinine (0.52-1.04) mg/dL Glucose (74-99) mg/dL POC Glucose (mg/dL) 175 H (70-110) mg/dL Calcium (8.4-10.2) mg/dL Microbiology - Last 24 Hours (Table) 02/09/23 10:00 Gram Stain - Final Sputum Sputum Culture - Final Bridgette albicans Assessment and Plan (1) Abnormal CBC Current Visit: Yes Status: Acute Priority: High Code(s): R79.89 - OTHER SPECIFIED ABNORMAL FINDINGS OF BLOOD CHEMISTRY SNOMED Code(s): 681404458 (2) Acute diverticulitis Current Visit: Yes Status: Acute Priority: High Code(s): K57.92 - DVTRCLI OF INTEST, PART UNSP, W/O PERF OR ABSCESS W/O BLEED SNOMED Code(s): 037101108 (3) Anemia Current Visit: Yes Status: Acute Priority: High Code(s): D64.9 - ANEMIA, UNSPECIFIED SNOMED Code(s): 495324057 (4) Rectal bleeding Current Visit: Yes Status: Acute Priority: High Code(s): K62.5 - HEMORRHAGE OF ANUS AND RECTUM SNOMED Code(s): 62775215 (5) AML (acute myelogenous leukemia) Current Visit: Yes Status: Acute Priority: High Code(s): C92.00 - ACUTE MYELOBLASTIC LEUKEMIA, NOT HAVING ACHIEVED REMISSION SNOMED Code(s): 47820615 Plan: Anemia: -Hemoglobin 7.4 today. Has received 4 units PRBCs since admission, last transfusion 02/07 -Hx of GI bleeds. Denies any episodes of bleeding today -Iron studies obtained, iron 120, iron saturation 56%, ferritin 571. Likely elevated due to recent blood transfusions. 2 doses IV iron have been given -DIC workup negative. -Will continue to monitor. Please transfuse for hemoglobin less than 7 or if symptomatic GI bleed: -Hx of GI bleeds -EGD and colonoscopy on 12/17/22 showed no sign of acute GI bleed. -Surgery following. Repeat colonoscopy showed no acute GI bleed, but showed blood tinged stool and diverticular changes. Presumed to be diverticular bleeding. -Recommend to continue to hold eliquis/plavix/no NSAIDs. Heparin subq prophylactic ok, if platelets are greater than 50,000 AML: -Blast cells elevated, ranging from 1-9%. -Hx of multiple regimens of chemotherapy and acute infectious and inflammatory processes could have attributed to acute rise in blast cells. However, due to persisting elevation in blast cells, bone marrow biopsy was obtained on 02/03. 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 FISH pending. -Family meeting scheduled yesterday but no family was present for meeting. Patients son told staff that he will be coming tomorrow to visit patient, will try to meet with son tomorrow to discuss results and to answer any questions family may have. Results of biopsy confirming AML was discussed. Discussed with patient that due to her current acute illness and poor performance status, treatment at this time would not be possible, but will reassess as she progresses. Tentative f/u in discharge plan, pending patients progression during admission. Will reschedule as needed. Pt verbalized understanding of discussion.
[2023-02-12 13:14] LABS: Band Neutrophils % 4 %; Basophils # (M) 0.16 k/uL (0-0.2); Blast Cells # (M) 0.48 k/uL (0); Eosinophils # (M) 0.64 k/uL (0-0.7); Lymphocytes # (M) 0.81 k/uL (1.0-4.8); Metamyelocytes # (M) 0.64 k/uL (0); Metamyelocytes % 4 %; Monocytes # (M) 0.97 k/uL (0-1.0); Myelocytes # (M) 0.16 k/uL (0); Myelocytes % 1 %; Neutrophils % (M) 74 %; Nucleated Red Blood Cells 2 /100 WBC (0-0); Total Cells Counted 200; WBC 16.1 k/uL (3.8-10.6)
[2023-02-12 13:16] LABS: Polychromasia Present; RBC Fragments Present
[2023-02-12] MEDS: NOREPINEPHRINE 8 MG in SODIUM CHLORIDE 0.9% 250 ML IV SCH (13:17)
[2023-02-12] MEDS: HYDROmorphone 1 MG/ML 1 ML SYRINGE IVP PRN (13:24)
--- NOTE | 2023-02-12 14:22 | P.PN ---
Subjective Progress Note Date: 02/12/23 This is a pleasant 72 years old female with multiple medical problems including Atrial Fibrillation, Coronary Artery Disease (CAD), Cancer, COPD, CVA/TIA, Diabetes Mellitus, GERD/Reflux, Hyperlipidemia, Hypertension, Pneumonia, Sleep Apnea/CPAP/BIPAP, Syncope she was discharged from this facility one month ago forpossible GI bleed, TIA, syncope and bronchitis. She was visiting her surgeon yesterday in the outpatient setting and she was referred to emergency room, Patient states that since last Thursday about one week ago she noticed she was not eating well and she had only one piece of pizza because of that. She started having blood per rectum, she will not stretch blood with clots filled the toilet about 3-4 times a day, also she was feeling more lethargic and weak and she slept for 48 hours as she described, complaining OF from abdominal pain mainly in the lower abdomen on the right side since Thursday about /10 like colic comes and goes. Also patient has been vomiting 2-3 times per day but there is no blood. Also patient with poor appetite. Visiting nurse noticed that her blood pressure was on the low side about 80/40 so she decided to go and see her surgeon before here for her to the emergency room. However when I saw the patient this morning she was fully awake and oriented, she looks comfortable pleasant and not in distress, she was complaining only from minimal abdominal pain. On admission she had a fever of 101, she was hypotensive and severely anemic her blood pressure 1000 as79/45, was fluctuation up to 113/45,this morning her blood pressure was 91/46, she is saturating 93% on 3 L oxygen. hemoglobin on admission was 7.7 and 6.1, compared to 9.8 last month for shawn campo. She received 1 unit of blood transfusion and her hemoglobin this morning is 7.4.INR is normal mildly elevated lactic acid came back to normal. Basic metabolic panel and liver enzymes were unremarkable this morning. urine analysis is negative and multiple viruses are undetected including covid ,influenza and RSV she has CT of the abdomen and pelvis with IV contrast showing no bowel obstru ction with mild sigmoid diverticulitis she received 2 L of normal saline and antibiotics with Flagyl and Levaquin. echocardiogram from 04/03/2022 showing ejection fraction of 55-60% 01/24/2022 Patient feels better, she feels stronger, she was walking the hallway. Her blood pressure still borderline but is improving slowly and gradually while she is on IV fluids also she is on midodrine which she thinks is helping her She still reports some blood in his stool but it's mild Hemoglobin is stable about 7.5. She remains on Levaquin and IV Flagyl and normal saline at 1:30 milliliters per hour Check labs in the morning. Currently patient is placed on liquid diets 01/25/2023 Patient is having recurrent vomiting this morning with some worsening upper abdominal pain but her abdomen still looks soft, no guarding or rebound tenderness. She still has a few spots of bleeding per rectum and epistaxis which is mild. Blood pressure actually improved, with no tachycardia, we will alert her midodrine 5 mg twice a day and we'll alert her normal saline 200 mL per hour. She has worsening swelling in her extremities as well. KUB from today is negative for acute process. She remains on Flagyl and Levaquin Surgery team on the case and plan for endoscopy tomorrow treatment Continue with Phenergan 25 mg as patient states is helping her 01/26/2023 Patient is seen and evaluated in follow-up this morning reports she underwent a bowel prep and is scheduled for colonoscopy with general surgery services today. Patient reports she had clear stool and most recent bowel movement was free of any dark stools or blood. Patient also being followed closely and maintained on IV antibiotics in the form of Flagyl and Levaquin for acute diverticulitis. Hemoglobin is currently stable today at 7.7. WBC is elevated at 14.7 and patient will continue on antibiotics. Kidney functions are within normal limits and blood sugars being monitored. Recommend continue with IV Protonix twice daily. Patient is currently afebrile with no reports of chest pain or shortness of breath. Patient is continued on 2 L and would recommend weaning FiO2 as tolerated. Will await colonoscopy report. 01/27/2023 Patient is seen today and is being followed by general surgery as well as hematology. Patient hemoglobin is 7.1 today and wbc is elevated. Hematology recommending IV iron x2 as studies were low. Recommend repeat cbc in am. Patient is currently NPO and continued on IV abx in the form of flagyl and levaquin for diverticulitis. Colonoscopy shows no acute bleed noted, possibly diverticular disease along with sigmoid diverticulitis. Continue with pain management as patient reports abdominal cramping. Patient anticoagulant remains on hold. Patient is afebrile and has been up and walking. 01/28/2023 Patient is seen in follow up with morning and being followed by surgery as well as hematology. Patient hemoglobin is up to 8 today and has received IV iron x2. Patient blast cells 3 today with hematology following closely. Recommending outpatient follow up. Patient reports some improvement in abdominal pain and diet is being slowly advanced per surgery to clear liquids. Recommend to monitor for tolerance. Chest xray was ordered and pending. Patient continued on IV antibiotics and will continue. Need to discuss further with surgery about treatment plan. Patient is afebrile and continues with an elevated WBC. Recommend follow up labs in the am. 01/29/2023 Patient is seen in follow-up with surgery following. Patient hemoglobin is stable currently and maintained off anticoagulation. Patient is a new non-oral iron supplementation and will continue. Patient continues to have elevated WBC currently above 16 and blast cells at 4 today. Patient is continued on IV antibiotics for the diverticulitis and has been maintaining and tolerating clear liquid diet and reports improvement in her abdominal pain with no reports of nausea or vomiting. Chest x-ray showing some overload and patient reports to having some abdominal bloating as well as generalized edema and will give a dose of IV Lasix. Recommend discontinuing IV hydration. Will follow-up with repeat labs. Recommend incentive spirometer and continuing to use at least 10 times every hour while awake. Encouraged increased activity as tolerated patient reports has been up and walking to the whole back. Recommend continued physical therapy. 01/30/2023 Patient is seated evaluated in follow-up continuing to lie in the bed with gener alized weakness. Patient reports she has been up but not as much. Patient is to receive a PICC line in no being started on TPN given her poor oral intake. Electrolyte abnormalities noting potassium of 3.2 and magnesium is 1.1 and will replace and recommend repeat labs. Patient also continues to report abdominal bloating and abdomen is soft and nontender on exam. Patient did receive a dose of IV Lasix yesterday with good output. General surgery starting TPN with dietitian to follow. Encouraged incentive spirometer at the bedside as patient continues to be on oxygen it does not normally wear this in the outpatient setting. Wean FiO2 as tolerated. Repeat CBC shows a hemoglobin 7.1 today and blast cells are increased up to 9 and discussed with oncology team with plans for possible bone marrow biopsy on Thursday. 01/31/2023 Patient is seen and evaluated in follow-up and hemoglobin was 6.9 today and awaiting to receive 2 units of blood with hematology following closely. General surgery following as well and has placed the patient on TPN and has received a PICC line. Electrolytes were replaced in magnesium above 2 and potassium 3.5. Patient's blood pressure on the lower side most likely multifactorial with pain medications and low blood count will add midodrine. Kidney functions worsened along with patient's sodium becoming hyponatremic although difficult to give IV fluids as patient overload easily. Will consult nephrology and appreciate input and recommendations. Patient is afebrile with no reports of nausea or vomiting noted. No reported chest pain or worsening shortness of breath at this time. Patient needs increased activity as tolerated and sitting up in the chair more often. Would recommend PT/OT therapy daily. 02/01/2023 Patient is seen in follow-up today reports she is not feeling well and per nursing staff has been having fevers overnight and continued on antibiotics for diverticulitis with surgery following. Hematology/oncology following as well and planning for possible bone marrow biopsy tomorrow. Patient is continued on TPN and has PICC line continues with indwelling Fermin catheter. Patient is reporting diarrhea and abdominal distention with pain. Infectious disease consulted and pending. Blood sugars have been elevated and was continued on sliding scale and will continue and add long-acting as well. No reports of chest pain or palpitations noted. Patient is wearing oxygen does not normally wear oxygen outpatient. Patient continues with generalized weakness and is continued on clear liquids. 02/02/2023 Patient seen and evaluated in follow-up with multiple medical consultations following. Blast cells remain elevated and hemoglobin currently stable after transfusion. Patient scheduled for bone marrow biopsy in the a.m. Patient also continues on TPN with general surgery following recommending to continue along with IV antibiotics. Infectious disease has been consulted and antibiotics being adjusted as patient had continued fevers and elevated white count. Pro- calcitonin is elevated and will continue. Patient is having elevated blood sugars and have adjusted long-acting and will continue sliding scale and m onitoring closely. Patient is requiring more oxygen demand currently at 5 L and normally does not wear any oxygen. Chest x-ray ordered pending. 02/03/2023 Patient is seen and evaluated in follow-up today with multiple medical consultations following. Overall prognosis remains guarded as patient has multiple comorbidities and medical issues ongoing. Patient currently remains on TPN for poor oral intake and recommend monitoring electrolytes closely replacing per protocol. Patient hemoglobin improved with no active bleeding noted. Patient continues with abdominal pain as well as some shortness of breath and white count remains elevated patient is having fevers. Chest x-ray suggestive of some volume overload and will continue dose of Lasix. Patient underwent bone marrow biopsy with oncology today. Blood sugars remain uncontrolled and will add pre-meal insulins as well as continue long-acting and sliding scale, possibly consider insulin drip. 02/04/2023 Patient is seen and evaluated in follow-up this morning reports she feels somewhat improved although continues to require high flow oxygen and also using BiPAP with pulmonary following. Chest x-ray this morning is suggestive of pulmonary edema and pleural fluid which is the same or slightly worse than previous could be CHF and was given doses of Lasix with improvement. Patient being started on IV Lasix twice daily with nephrology following closely. Hemoglobin is stable at 7.7 and white count is 8.6, blast cells are 6 and oncology following and has underwent bone marrow biopsy which is pending. Kidney functions are stable in magnesium found to be 1.6 and will replace per protocol. Patient continues on TPN and continues to have multiple electrolyte abnormalities at times. Patient also extremely hyperglycemic and will attempt increasing the long-acting with increasing the pre-meal as well as continuing sliding scale and may require an insulin drip. Patient is also continued on IV antibiotics with infectious disease following closely and per medical record patient has been refusing aztreonam and unsure why. Recommend wean FiO2 as tolerated and encouraged increase activity as tolerated 02/05/2023 Patient is seen and evaluated in follow-up this morning currently sitting up at the side of the bed continues to report shortness of breath although feels is improved. Patient is using BiPAP on occasion and currently maintained on 15 L high flow. Patient is maintained on IV Lasix with nephrology following closely. Multiple medical consultations following including general surgery recommending to continue TPN for abdominal pain and poor oral intake. Would recommend decreasing the rate and amount of fluid from TPN and have discussed this with pharmacy along with dietary adjustments are being made. Patient's blood sugars are elevated although more controlled on current regimen and will continue. Hemoglobin found to be 6.9 this morning and will give a unit of PRBC and recommend follow-up labs. Patient is receiving DuoNeb treatments and would recommend follow-up chest x-ray in the a.m. Overall prognosis remains guarded. 02/06/2023 Patient is seen in follow-up today continued on BiPAP currently had increased respiratory distress requiring an a team last night and maintained on BiPAP and refusing to take it off she is having increasing shortness of breath. Patient is now continued on IV Lasix and TPN being discontinued. Patient is refusing all medications at this time and discuss with nursing staff about encouraging oral intake. Was notified from pharmacy they are out of TPN and okay to discontinue per surgery. Blood sugars improved although patient is not eating and will continue to monitor closely. Patient hemoglobin above 7 and WBC is patient is continued on antibiotics with ID following and has also been started on vancomycin in addition. Pro-calcitonin is elevated. Overall prognosis remains extremely guarded. 02/07/2023 Patient is seen in follow-up this morning currently on the stepdown unit with multiple medical consultations following with plans for transferring to ICU as respiratory status has declined once again and now maintained on continuous BiPA P with an 80% FiO2. Patient has been refusing to remove the BiPAP for any eating or medication and discussed with nursing staff the importance of medication administration as well as the patient. Oral intake remains poor and patient is lethargic. Patient's blood sugars have now been on the lower side as patient is not eating and will add just sliding scale and discontinue the long- acting had prerenal insulins for now. Recommend continue monitoring Accu-Cheks closely for any signs of hypoglycemia as well. Chest x-ray continues to show some overload versus possible pneumonia patient is maintained on IV aztreonam as well as vancomycin with infectious disease following closely. Overall prognosis remains extremely guarded at this time. Will follow-up with repeat labs in a.m. and monitor the patient closely in the ICU. 02/08/2023 Patient is seen in follow-up today has been moved to the ICU for close monitoring as patient's respiratory status has declined. Patient is on BiPAP continuous with an FiO2 of 80% and PEEP is 5. Patient is maintained on antibiotics with multiple medical consultations following in the form of aztreonam and vancomycin while awaiting repeat cultures. Patient did have multiple episodes of loose stools overnight and currently awaiting a C. diff sample. Patient noted to have decreased urine output with indwelling Fermin catheter placed with nephrology following slight bump in kidney functions and is being placed on IV Lasix drip at 10 mL's per hour. Will follow-up with repeat labs. Chest x-ray today shows bibasilar infiltrates with small pleural e ffusions correlate for CHF and pulmonary edema.. hemoglobin is stable above 7.5 with no active bleeding noted and will follow closely and transfuse of 7 or less. Blood sugars slightly improved and will continue on just sliding scale. A was on long-acting although not eating and having close to episodes of hypoglycemia. Patient encouraged oral intake and medication administration. Patient not tolerating taking the BiPAP mask off very well and desats quickly. Patient is currently 92-93% oxygen saturation with an FiO2 of 80% on the BiPAP. 02/09/2023 Patient is seen this morning in the ICU 100% BiPAP. Patient desats quickly although is able to take it off for brief periods of sips and medications. Patient with not much of an appetite and encouraged oral intake. Patient being followed by multiple medical consultations including nephrology and was on Lasix drip although having decreased urine output and worsening kidney functions now having vascular surgery consultation for hemodialysis. Patient is maintained on antibiotics with infectious disease following and awaiting repeat cultures. Aztreonam being discontinued and patient being started on meropenem with continued vancomycin. Monitor vancomycin trough levels closely with concerns of worsening kidney functions. Discussed CODE STATUS once again with the patient and wishes to remain full code at this time and patient is high risk for possible mechanical ventilation. 02/10/2023 Patient is seen and evaluated in the ICU with multiple medical consultations following. Patient's respiratory status deteriorated and maintained on BiPAP which has been titrated down to an FiO2 of 80% from 100% yesterday. Patient co ntinues to be short of breath with very minimal exertion has not been out of bed. Per nursing staff patient is attempting oral intake and is drinking but desats very quickly once of the BiPAP mask. 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 Plan for family meeting in the a.m. Chest x-ray continues to show consistency with pneumonia patient is maintained on antibiotics with infectious disease following closely. Hemoglobin is stable at 7.1 and will transfuse loss. Patient is currently afebrile and denies chest pain or palpitations. Patient did have a brief period of chest pain yesterday with troponin slightly elevated. Overall prognosis is poor and guarded and will follow-up after family meeting. Patient has been started on dialysis and will continue with another treatment tomorrow nephrology following closely. 02/11/2023 Patient is seen and evaluated in follow-up continues on BiPAP and FiO2 has been titrated down currently at 75% with a PEEP of 5. Patient is resting although arousable. Patient is receiving hemodialysis and again scheduled for today. Oncology waiting to discuss further with family and patient at the bedside about overall prognosis and bone marrow biopsy findings and no family available today. Nursing staff working on contacting family. Patient is currently afebrile off pressor support and using midodrine as needed. Patient denies chest pain or palpitations. Patient continues to have poor oral intake with not much of an appetite and desats quickly of the BiPAP. Encouraged oral intake. 02/12/2023 Patient is seen and evaluated in follow-up continues to be in the ICU on BiPAP and was currently on 75% although having increased respiratory distress and FiO2 being bumped up to 100%. Patient's overall prognosis is extremely poor and guarded at this time. Nursing staff notified that son will be able to come tomorrow for brief meeting with overall condition and prognosis and plans moving forward. Son was contacted after this increased respiratory demands and will be coming to see her this evening. Patient is alert and oriented and reported she did not want to be a mechanical ventilation but is agreeable to medications and CPR. CODE STATUS was changed. Patient is currently afebrile although continues with elevated white blood count and maintained on antibiotics with multiple medical consultations following. Hemoglobin is stable. 7.4 and platelets are 54, blast cells are 3%. Patient is maintained on hemodialysis and receiving dialysis again today kidney function elevated although stable with a BUN of 58 and creatinine is 1.53. Chest x-ray shows diffuse increased lung markings bilaterally greater on the right compared to previous exam with continued follow-up recommended. Findings may likely be worsening. Review of systems: Constitutional: reports of fatigue, reports not feeling well Cardiovascular: No reports of chest pain or palpitations Respiratory: reports of worsening shortness of breath requiring more BiPAP at 100% now GI: No reports of nausea, vomiting, or diarrhea, reports decreased abdominal pain reports no appetite : No reports of dysuria or retention, reports decreased urine output Neurovascular: reports of generalized weakness All medications have been reviewed Physical exam: GENERAL: The patient is alert and oriented x3, asleep but easily arousable. Well developed, well nourished. Obese, elderly and ill-appearing, now maintain ed on BiPAP continuous, FiO2 is 100 % with a PEEP of 5 HEENT: Pupils are round and equally reacting to light. EOMI. No scleral icterus. No conjunctival pallor. Normocephalic, atraumatic. No pharyngeal erythema. No thyromegaly. CARDIOVASCULAR: S1 and S2 muffled PULMONARY: Diminished breath sounds bilaterally with some scattered rhonchi and crackles noted, tachypneic, working to breathe ABDOMEN: Soft, obese, nontender, some bloating, nondistended, normoactive bowel sounds. No palpable organomegaly. MUSCULOSKELETAL: No joint swelling or deformity. EXTREMITIES: No cyanosis, clubbing, or pedal edema. NEUROLOGICAL: Gross neurological examination did not reveal any focal deficits. Diffusely weak SKIN: No rashes. no petechiae. 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 Atrial Fibrillation, on Eliquis (ON HOLD) status post Permanent Pacemaker history of anterior abdominal wall fluid collection could be related to seroma Coronary Artery Disease history, status post stent Obesity with BMI of 30.5 COPD, not in exacerbation CVA/TIA history with left foot drop Diabetes Mellitus, uncontrolled with hyperglycemia GERD/Reflux Hyperlipidemia Hypertension Sleep Apnea/CPAP/BIPAP Diabetic neuropathy bilateral legs/feet History of colon cancer with revision/colostomy since reversed and chemo/radiation History of PVD Full code Plan: Patient continues in the ICU on continuous BiPAP with an FiO2 has been incre ased as patient is experiencing some increased respiratory demand and respiratory distress and now BiPAP is 100% PEEP is 5. patient did address CODE STATUS again and does not want to be on mechanical ventilation but is agreeable to CPR medications Recommend continue with IV antibiotics with infectious disease following. Blood cultures thus far remain negative and sputum culture was sent and pending. WBC is elevated and patient remains afebrile. Nephrology following and patient has been undergoing hemodialysis for decreased urine output and worsening kidney functions. Patient is scheduled to receive a session of hemodialysis today Oncology following patient underwent bone marrow biopsy on 02/03/2023, results confirmed AML and awaiting to have a family meeting to discuss diagnosis and options Recommend follow-up labs in a.m. Due to multiple complex medical issues, prognosis is extremely poor and guarded The impression and plan of care has been dictated by Mindy Saleh, Nurse Practitioner as directed. Dr. Rajani MD I have performed a history and examination and MDM of this patient, discussed the same with the dictator, and agree with the dictator's assessment and plan as written ,documented as a scribe. Based on total visit time, I have performed more than 50% of the visit. Objective - Vital Signs Vital signs: Vital Signs Temp 98.3 F 02/12/23 08:00 Pulse 112 H 02/12/23 08:41 Resp 28 H 02/12/23 08:00 BP 138/57 02/12/23 08:00 Pulse Ox 93 L 02/12/23 08:00 FiO2 75 02/12/23 08:10 Intake & Output 02/11/23 02/12/23 02/12/23 18:59 06:59 18:59 Intake Total 420 220 20 Output Total 2348 78 3 Balance -1928 142 17 Weight 85.729 kg Intake: IV 120 220 20 0.9% @ KVO 120 120 20 Meropenem 1 gm In Sodium 100 Chloride 0.9% 100 ml @ 33 .3 mls/hr IVPB Q12HR [facility] Rx#:[id number] Hemodialysis 300 Output: Urine 52 78 3 Hemodialysis 2296 Other: Voiding Method Indwelling Catheter Indwelling Catheter Indwelling Catheter - Labs CBC & Chem 7: 02/12/23 05:36 02/12/23 05:36 Labs: Abnormal Lab Results - Last 24 Hours (Table) 02/11/23 02/11/23 02/11/23 Range/Units 07:37 11:45 16:24 WBC (3.8-10.6) k/uL RBC (3.80-5.40) m/uL Hgb (11.4-16.0) gm/dL Hct (34.0-46.0) % RDW (11.5-15.5) % Plt Count (150-450) k/uL Blast Cells % 5 H* % Neutrophils # (1.3-7.7) k/uL Neutrophils # (Manual) 8.30 H (1.3-7.7) k/uL Monocytes # (0-1.0) k/uL Monocytes # (Manual) 1.24 H (0-1.0) k/uL Metamyelocytes # (Man) 0.25 H (0) k/uL Myelocytes # (Manual) 0.25 H (0) k/uL Blast Cells # (Man) 0.62 H (0) k/uL Sodium (137-145) mmol/L BUN (7-17) mg/dL Creatinine (0.52-1.04) mg/dL Glucose (74-99) mg/dL POC Glucose (mg/dL) 232 H 126 H (70-110) mg/dL Calcium (8.4-10.2) mg/dL 02/11/23 02/12/23 02/12/23 Range/Units 20:48 05:36 05:36 WBC 16.4 H (3.8-10.6) k/uL RBC 2.93 L (3.80-5.40) m/uL Hgb 7.4 L (11.4-16.0) gm/dL Hct 23.6 L (34.0-46.0) % RDW 23.6 H (11.5-15.5) % Plt Count 54 L (150-450) k/uL Blast Cells % % Neutrophils # 11.8 H (1.3-7.7) k/uL Neutrophils # (Manual) (1.3-7.7) k/uL Monocytes # 1.3 H (0-1.0) k/uL Monocytes # (Manual) (0-1.0) k/uL Metamyelocytes # (Man) (0) k/uL Myelocytes # (Manual) (0) k/uL Blast Cells # (Man) (0) k/uL Sodium 135 L (137-145) mmol/L BUN 58 H (7-17) mg/dL Creatinine 1.53 H (0.52-1.04) mg/dL Glucose 176 H (74-99) mg/dL POC Glucose (mg/dL) 175 H (70-110) mg/dL Calcium 7.2 L (8.4-10.2) mg/dL 02/12/23 02/12/23 Range/Units 06:52 08:23 WBC (3.8-10.6) k/uL RBC (3.80-5.40) m/uL Hgb (11.4-16.0) gm/dL Hct (34.0-46.0) % RDW (11.5-15.5) % Plt Count (150-450) k/uL Blast Cells % % Neutrophils # (1.3-7.7) k/uL Neutrophils # (Manual) (1.3-7.7) k/uL Monocytes # (0-1.0) k/uL Monocytes # (Manual) (0-1.0) k/uL Metamyelocytes # (Man) (0) k/uL Myelocytes # (Manual) (0) k/uL Blast Cells # (Man) (0) k/uL Sodium (137-145) mmol/L BUN (7-17) mg/dL Creatinine (0.52-1.04) mg/dL Glucose (74-99) mg/dL POC Glucose (mg/dL) 184 H 179 H (70-110) mg/dL Calcium (8.4-10.2) mg/dL Microbiology - Last 24 Hours (Table) 02/09/23 10:00 Gram Stain - Final Sputum Sputum Culture - Final Bridgette albicans
[2023-02-12 16:12] VITALS: TEMP 98.2
[2023-02-12] MEDS ORDERED: EPINEPHrine 10 ML SYRINGE (0.1 MG/ML) ONE (16:40)
[2023-02-12] MEDS ORDERED: ATROPINE SULFATE 0.1 MG/ML 10ML SYRINGE ONE (16:40)
[2023-02-12 18:05] VITALS: BP 73/60; PULSE 131; RESP 16
--- NOTE | 2023-02-12 18:12 | P.PN ---
Subjective Progress Note Date: 02/12/23 Principal diagnosis: Fever possible pneumonia Patient is a 72-year-old female with a past medical history significant for hypertension hyperlipidemia diabetes mellitus CVA TIA cervical cancer did have a history of atrial fibrillation on anticoagulation presenting to the hospital on 01/22/2023 for evaluation of rectal bleeding , patient diagnosed with diverticulitis and has been treated with Levaquin and Flagyl, patient did have persistent fever requiring infectious disease consultation patient also have worsening of respiratory status requiring transplant ICU and did catheter right groin dialysis catheter started on dialysis as of 02/09/2023 On today's evaluation early 02/11/2023, the patient remains to be afebrile, the patient remains to be BiPAP dependent currently requiring 75% FiO2 , patient is currently not on any pressor support and is scheduled for dialysis this afternoon, patient did answer some simple questions, no vomiting diarrhea or any other changes reported by the nursing staff Objective - Vital Signs Vital signs: Vital Signs Temp 98.3 F 02/12/23 08:00 Pulse 107 H 02/12/23 12:00 Resp 42 H 02/12/23 12:00 BP 121/51 02/12/23 12:00 Pulse Ox 91 L 02/12/23 12:00 FiO2 75 02/12/23 12:00 Intake & Output 02/11/23 02/12/23 02/12/23 18:59 06:59 18:59 Intake Total 420 220 50 Output Total 2348 78 33 Balance -1928 142 17 Weight 85.729 kg Intake: IV 120 220 50 0.9% @ KVO 120 120 50 Meropenem 1 gm In Sodium 100 Chloride 0.9% 100 ml @ 33 .3 mls/hr IVPB Q12HR [facility] Rx#:[id number] Hemodialysis 300 Output: Urine 52 78 33 Hemodialysis 2296 Other: Voiding Method Indwelling Catheter Indwelling Catheter Indwelling Catheter - Exam GENERAL DESCRIPTION: An elderly female lying in bed in no distress RESPIRATORY SYSTEM: Unlabored breathing , decreased breath sounds at bases HEART: S1 S2 regular rate and rhythm , ABDOMEN: Soft , no tenderness EXTREMITIES: No edema feet - Labs CBC & Chem 7: 02/12/23 05:36 02/12/23 05:36 Labs: Abnormal Lab Results - Last 24 Hours (Table) 02/11/23 02/11/23 02/12/23 Range/Units 16:24 20:48 05:36 WBC 16.4 H (3.8-10.6) k/uL RBC 2.93 L (3.80-5.40) m/uL Hgb 7.4 L (11.4-16.0) gm/dL Hct 23.6 L (34.0-46.0) % RDW 23.6 H (11.5-15.5) % Plt Count 54 L (150-450) k/uL Neutrophils # 11.8 H (1.3-7.7) k/uL Monocytes # 1.3 H (0-1.0) k/uL Sodium (137-145) mmol/L BUN (7-17) mg/dL Creatinine (0.52-1.04) mg/dL Glucose (74-99) mg/dL POC Glucose (mg/dL) 126 H 175 H (70-110) mg/dL Calcium (8.4-10.2) mg/dL 02/12/23 02/12/23 02/12/23 Range/Units 05:36 06:52 08:23 WBC (3.8-10.6) k/uL RBC (3.80-5.40) m/uL Hgb (11.4-16.0) gm/dL Hct (34.0-46.0) % RDW (11.5-15.5) % Plt Count (150-450) k/uL Neutrophils # (1.3-7.7) k/uL Monocytes # (0-1.0) k/uL Sodium 135 L (137-145) mmol/L BUN 58 H (7-17) mg/dL Creatinine 1.53 H (0.52-1.04) mg/dL Glucose 176 H (74-99) mg/dL POC Glucose (mg/dL) 184 H 179 H (70-110) mg/dL Calcium 7.2 L (8.4-10.2) mg/dL 02/12/23 Range/Units 11:29 WBC (3.8-10.6) k/uL RBC (3.80-5.40) m/uL Hgb (11.4-16.0) gm/dL Hct (34.0-46.0) % RDW (11.5-15.5) % Plt Count (150-450) k/uL Neutrophils # (1.3-7.7) k/uL Monocytes # (0-1.0) k/uL Sodium (137-145) mmol/L BUN (7-17) mg/dL Creatinine (0.52-1.04) mg/dL Glucose (74-99) mg/dL POC Glucose (mg/dL) 175 H (70-110) mg/dL Calcium (8.4-10.2) mg/dL Microbiology - Last 24 Hours (Table) 02/09/23 10:00 Gram Stain - Final Sputum Sputum Culture - Final Bridgette albicans Assessment and Plan (1) Fever Current Visit: Yes Status: Acute Code(s): R50.9 - FEVER, UNSPECIFIED SNOMED Code(s): 840034129 Plan: 1patient with sepsis in this patient who did have a fever elevated white count present to the hospital predominantly with the GI symptoms specially with abdominal pain and bleeding per rectum patient bleeding seems to have improved however still complaining of diarrhea with admission CT did shows evidence of sigmoid diverticulitis 2patient with multiple antibiotic allergies that would limit the number of antibiotics safe to use. 3patient did have elevated CRP procalcitonin chest x-ray concerning for possible left-sided pneumonia, sputum cultures obtained which are so for negative 4patient fever has resolved and the patient white count has normalized, patient currently on broad-spectrum antibiotic in the form of meropenem which will be continued and will monitor clinical course closely Time with Patient: Less than 30
--- NOTE | 2023-02-15 12:45 | P.DS ---
Providers Date of admission: 01/22/23 20:48 Expected date of discharge: 02/12/23 Attending physician: Reuben Cotton Consults: 01/26/23 07:41 Consult Physician Routine Consulting Provider: Parish Hatfield Consult Reason/Comments: elevated balst cell Do you want consulting provider notified?: Yes 01/31/23 11:28 Consult Physician Urgent Consulting Provider: Mireya Caballero Consult Reason/Comments: dimple, hyponatremia, hypotension Do you want consulting provider notified?: Yes 02/01/23 11:10 Consult Physician Routine Consulting Provider: Nahum Eugene Consult Reason/Comments: Leukocytosis, fever Do you want consulting provider notified?: Yes 02/03/23 09:13 Consult Physician Urgent Consulting Provider: Ash Kirkpatrick Consult Reason/Comments: copd, requiring high oxygen Do you want consulting provider notified?: Yes 02/08/23 21:15 Consult Physician Urgent Consulting Provider: Wilton Judge Consult Reason/Comments: HD cath placement Do you want consulting provider notified?: Already Contacted [facility] Course: 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 Acute anemia, mostly acute blood loss anemia, associated with abdominal pain and sigmoid diverticulitis Acute hypoxemic respiratory failure, possibly secondary to volume overload, requiring BiPAP Diverticular disease as noted on colonoscopy Sigmoid diverticulitis Acute kidney injury, multifactorial possibly secondary to hypotension as well as poor oral intake, decreased urine output, failed, now receiving hemodialysis Severe protein calorie malnutrition secondary to above History of chronic Anemia, iron deficiency Elevated blast cells, underwent bone marrow biopsy on 02/03/2023 which confirmed AML Atrial Fibrillation, status post Permanent Pacemaker history of anterior abdominal wall fluid collection could be related to seroma Coronary Artery Disease history, status post stent Obesity with BMI of 30.5 COPD, not in exacerbation CVA/TIA history with left foot drop Diabetes Mellitus, uncontrolled with hyperglycemia GERD/Reflux Hyperlipidemia Hypertension Sleep Apnea/CPAP/BIPAP Diabetic neuropathy bilateral legs/feet History of colon cancer with revision/colostomy since reversed and chemo/radiation History of PVD no code Discharge disposition Patient has . According to nursing documentation, time of was 1646 . Total time taken is greater than 35 minutes Hospital course This is a 72-year-old female was recently admitted initially with abdominal pain and possible GI bleed found to have diverticulitis indeed on antibiotics and underwent EGD colonoscopy with no bleeding noted most likely diverticular. Patient having decreased appetite and not tolerating oral intake was started on TPN and developed volume overload and worsening kidney functions requiring IV Lasix as well as eventually leading to hemodialysis. Patient did have elevated blast cells noted on CBC and underwent bone marrow biopsy which confirmed acute myeloid leukemia with oncology following. Overall prognosis remained poor throughout and patient clinically declined becoming more and respiratory distress requiring continuous BiPAP. Patient did not want to be on mechanical vent but was agreeable to other lifesaving measures. Patient was placed in the ICU and continued to deteriorate. During last hemodialysis patient heart rate became extremely bradycardic and patient unresponsive with family made aware reporting they wanted her to become comfort and no code with no further interventions. Patient ultimately at 1646 on 02/12/2023. Please refer to other consultation notes for further HPI. The impression and plan of care has been dictated by Mindy Saleh, Nurse Practitioner as directed. MD Thony I have performed a history and examination and MDM of this patient, discussed the same with the dictator, and agree with the dictator's assessment and plan as written ,documented as a scribe. Based on total visit time, I have performed more than 50% of the visit. Patient Condition at Discharge: Poor Plan - Discharge Summary Discharge Rx Participant: No New Discharge Prescriptions: No Action Multivit-Min/Iron/Folic/Lutein [Centrum Silver Women Tablet] 1 tab PO BID Insulin NPH Human Isophane [NovoLIN N] 30 units SQ AC-BRKFST Pramipexole Di-HCl [Mirapex] 0.125 mg PO HS Nitroglycerin Sl Tabs [Nitrostat] 0.4 mg SUBLINGUAL Q5M PRN PRN Reason: Chest Pain Fluticasone Nasal Bryant [Flonase Nasal Bryant] 2 spray EA NOSTRIL DAILY PRN PRN Reason: allergies Baclofen 10 mg PO HS Insulin NPH Human Isophane [NovoLIN N] 35 units SQ AC-SUPPER Clopidogrel [Plavix] 75 mg PO DAILY #30 tab Ferrous Sulfate [Iron (65 MG Elemental)] 325 mg PO BID-W/MEALS tab amLODIPine [Norvasc] 10 mg PO DAILY Albuterol Inhaler [Ventolin Hfa Inhaler] 2 puff INHALATION RT-QID PRN PRN Reason: Shortness Of Breath Sertraline [Zoloft] 50 mg PO DAILY Apixaban [Eliquis] 5 mg PO BID #60 tab Atorvastatin [Lipitor] 40 mg PO HS #30 tablet Acetaminophen Tab [Tylenol] 650 mg PO Q6HR PRN tab PRN Reason: Fever and/ or Mild Pain metFORMIN HCL [Glucophage] 1,000 mg PO BID #0 Mag Hydrox/Al Hydrox/Simeth [Maalox] 30 ml PO Q4HR PRN ml PRN Reason: Gi Upset Insulin NPH Human Isophane [Novolin N] 6 units SQ AC-LUNCH PRN PRN Reason: HIGH BLOOD SUGAR Discharge Medication List Albuterol Inhaler [Ventolin Hfa Inhaler] 2 puff INHALATION RT-QID PRN 10/17/21 [History] Multivit-Min/Iron/Folic/Lutein [Centrum Silver Women Tablet] 1 tab PO BID 10/17/21 [History] Sertraline [Zoloft] 50 mg PO DAILY 10/18/21 [History] Apixaban [Eliquis] 5 mg PO BID #60 tab 10/21/21 [Rx] Atorvastatin [Lipitor] 40 mg PO HS #30 tablet 10/21/21 [Rx] Insulin NPH Human Isophane [NovoLIN N] 30 units SQ AC-BRKFST 01/16/22 [History] Pramipexole Di-HCl [Mirapex] 0.125 mg PO HS 01/17/22 [History] Acetaminophen Tab [Tylenol] 650 mg PO Q6HR PRN tab 01/21/22 [Rx] Baclofen 10 mg PO HS 02/06/22 [History] Fluticasone Nasal Bryant [Flonase Nasal Bryant] 2 spray EA NOSTRIL DAILY PRN 02/06/22 [History] Nitroglycerin Sl Tabs [Nitrostat] 0.4 mg SUBLINGUAL Q5M PRN 02/06/22 [History] Insulin NPH Human Isophane [NovoLIN N] 35 units SQ AC-SUPPER 03/31/22 [History] Clopidogrel [Plavix] 75 mg PO DAILY #30 tab 04/03/22 [Rx] metFORMIN HCL [Glucophage] 1,000 mg PO BID #0 04/03/22 [Rx] Mag Hydrox/Al Hydrox/Simeth [Maalox] 30 ml PO Q4HR PRN ml 07/12/22 [Rx] Insulin NPH Human Isophane [Novolin N] 6 units SQ AC-LUNCH PRN 12/12/22 [History] Ferrous Sulfate [Iron (65 MG Elemental)] 325 mg PO BID-W/MEALS tab 12/20/22 [Rx] amLODIPine [Norvasc] 10 mg PO DAILY 01/22/23 [History] Follow up Appointment(s)/Referral(s): Parish Hatfield MD [STAFF PHYSICIAN] - 02/26/23 11:15 am ([address], behind [facility] ) [facility], [NON-STAFF] - Zhang Holguin MD [Primary Care Provider] - 1-2 days Discharge Disposition: - Preliminary Cause of Preliminary Cause of : acute myeloid leukemia
== END 2023-02-12 18:30 | disposition expired | DRG 377 ==
LOC: EC 14:06 → 3SCARD 20:48 → 2SICU 02-07 11:23
PROVIDERS: ADMIT Hospitalist; ATTEND Hospitalist
PROC: 30233N1 Transfusion of Nonautologous Red Blood Cells into Peripheral Vein, Percutaneous Approach (ICD-10-PCS; 2023-01-22)
PROC: 0DJD8ZZ Inspection of Lower Intestinal Tract, Via Natural or Artificial Opening Endoscopic (ICD-10-PCS; principal; 2023-01-26 14:30)
PROC: 3E0436Z Introduction of Nutritional Substance into Central Vein, Percutaneous Approach (ICD-10-PCS; 2023-01-29)
PROC: 02HV33Z Insertion of Infusion Device into Superior Vena Cava, Percutaneous Approach (ICD-10-PCS; 2023-01-29)
PROC: 02HV33Z Insertion of Infusion Device into Superior Vena Cava, Percutaneous Approach (ICD-10-PCS; 2023-02-02)
PROC: 079T3ZX Drainage of Bone Marrow, Percutaneous Approach, Diagnostic (ICD-10-PCS; 2023-02-03)
PROC: 07DR3ZX Extraction of Iliac Bone Marrow, Percutaneous Approach, Diagnostic (ICD-10-PCS; 2023-02-03)
PROC: 5A0935A Assistance with Respiratory Ventilation, Less than 24 Consecutive Hours, High Flow/Velocity Cannula (ICD-10-PCS; 2023-02-04)
PROC: 5A09457 Assistance with Respiratory Ventilation, 24-96 Consecutive Hours, Continuous Positive Airway Pressure (ICD-10-PCS; 2023-02-05)
PROC: 3E033XZ Introduction of Vasopressor into Peripheral Vein, Percutaneous Approach (ICD-10-PCS; 2023-02-07)
PROC: 02HV33Z Insertion of Infusion Device into Superior Vena Cava, Percutaneous Approach (ICD-10-PCS; 2023-02-09)
PROC: 5A1D70Z Performance of Urinary Filtration, Intermittent, Less than 6 Hours Per Day (ICD-10-PCS; 2023-02-09)
DX: K57.21 Diverticulitis of large intestine with perforation and abscess with bleeding (principal); A41.9 Sepsis, unspecified organism; E43 Unspecified severe protein-calorie malnutrition; J18.9 Pneumonia, unspecified organism; J96.01 Acute respiratory failure with hypoxia; I50.33 Acute on chronic diastolic (congestive) heart failure; C92.00 Acute myeloblastic leukemia, not having achieved remission; N17.9 Acute kidney failure, unspecified; E87.20 Acidosis, unspecified; I48.20 Chronic atrial fibrillation, unspecified; E87.1 Hypo-osmolality and hyponatremia; D62 Acute posthemorrhagic anemia; J44.0 Chronic obstructive pulmonary disease with (acute) lower respiratory infection; B37.0 Candidal stomatitis; Z51.5 Encounter for palliative care; R34 Anuria and oliguria; I95.9 Hypotension, unspecified; E11.42 Type 2 diabetes mellitus with diabetic polyneuropathy; E11.51 Type 2 diabetes mellitus with diabetic peripheral angiopathy without gangrene; I11.0 Hypertensive heart disease with heart failure; E66.9 Obesity, unspecified; G25.81 Restless legs syndrome; Z95.3 Presence of xenogenic heart valve; Z66 Do not resuscitate; E11.65 Type 2 diabetes mellitus with hyperglycemia; I08.3 Combined rheumatic disorders of mitral, aortic and tricuspid valves; F17.210 Nicotine dependence, cigarettes, uncomplicated; I25.10 Atherosclerotic heart disease of native coronary artery without angina pectoris; E78.5 Hyperlipidemia, unspecified; G47.33 Obstructive sleep apnea (adult) (pediatric); M21.372 Foot drop, left foot; G89.29 Other chronic pain; K21.9 Gastro-esophageal reflux disease without esophagitis; K64.9 Unspecified hemorrhoids; E83.42 Hypomagnesemia; E87.6 Hypokalemia; R00.1 Bradycardia, unspecified; T36.8X5A Adverse effect of other systemic antibiotics, initial encounter; R04.0 Epistaxis; R00.0 Tachycardia, unspecified; Z20.822 Contact with and (suspected) exposure to COVID-19; Z96.642 Presence of left artificial hip joint; Z88.1 Allergy status to other antibiotic agents; Z95.5 Presence of coronary angioplasty implant and graft; Z85.3 Personal history of malignant neoplasm of breast; Z88.0 Allergy status to penicillin; Z95.818 Presence of other cardiac implants and grafts; Z88.2 Allergy status to sulfonamides; Z91.040 Latex allergy status; Z88.5 Allergy status to narcotic agent; Z91.030 Bee allergy status; Z79.84 Long term (current) use of oral hypoglycemic drugs; Z79.899 Other long term (current) drug therapy; Z79.02 Long term (current) use of antithrombotics/antiplatelets; Z79.01 Long term (current) use of anticoagulants; Z79.4 Long term (current) use of insulin; Z86.73 Personal history of transient ischemic attack (TIA), and cerebral infarction without residual deficits; Z85.038 Personal history of other malignant neoplasm of large intestine; Z85.41 Personal history of malignant neoplasm of cervix uteri; Z95.0 Presence of cardiac pacemaker; Z92.21 Personal history of antineoplastic chemotherapy; Z92.3 Personal history of irradiation; Z87.19 Personal history of other diseases of the digestive system; Z87.01 Personal history of pneumonia (recurrent); Z68.30 Body mass index [BMI] 30.0-30.9, adult
CPT/HCPCS: 36415; 36430; 36573; 36600; 38222; 45378; 71045; 71046; 74018; 74177; 74178; 76770; 80048; 80053; 80202; 81001; 81003; 82330; 82533; 82728; 82805; 83036; 83540; 83550; 83605; 83690; 83735; 83880; 83930; 83935; 84100; 84145; 84300; 84439; 84443; 84478; 84484; 85025; 85027; 85045; 85384; 85610; 85652; 85730; 86140; 86706; 86850; 86900; 86901; 86920; 87040; 87070; 87205; 87324; 87340; 87502; 87635; 87636; 90935; 93005; 93306; 94640; 94660; 94760; 96361; 96365; 96367; 96372; 96375; 99291